=== PATIENT | female | born 1960 | race Hispanic/Latino ===

== ENCOUNTER 2018-01-25 19:02 | Emergency (ER) | payer SELFPAY ==
--- NOTE | 2018-01-25 20:26 | RAD REPORT ---
EXAM DESCRIPTION: [place] Single View01/25/2018 8:02 pm CLINICAL HISTORY: Chest pain COMPARISON: May 2017 FINDINGS: The lungs appear clear of acute infiltrate. The heart is normal size IMPRESSION: No acute abnormalities displayed
[2018-01-25 20:34] LABS: Absolute Lymphocytes (CBC) 1.2 K/uL (0.7-4.9); Absolute Monocytes 0.5 K/uL (0.1-1.3); Absolute Neutrophil 4.6 K/uL (1.8-8.0); Basophils % 0.6 % (0-1.3); Eosinophils % 2.3 % (0-4.4); Hematocrit 38.6 % (36.0-45.0); Lymphocytes % 18.8 % (15.3-44.8); MCH 31.9 pg (27.0-35.0); MCV 91.6 fL (80-100); MPV 7.2 fL (7.6-11.3); Monocytes % 7.4 % (3.3-12.3); RBC Red Blood Cell Count 4.21 M/uL (3.86-4.86)
[2018-01-25 20:42] LABS: Potassium 3.8 mEq/L (3.6-5.0)
[2018-01-25 20:48] LABS: Albumin 4.5 g/dL (3.2-5.5); Bilirubin Direct 0.1 mg/dL (0-0.2); Bilirubin Total 0.5 mg/dL (0.3-1.2); Protein, Total 8.1 g/dL (6.0-8.3)
[2018-01-25 20:52] LABS: CKMB Creatine Kinase MB 2.8 ng/ml (0.3-4.0)
[2018-01-25 20:54] LABS: Protime INR 1.01
[2018-01-25 22:26] LABS: Urine Blood TRACE (NEG); Urine Glucose NEGATIVE (NEG); Urine Protein NEGATIVE (NEG); Urine pH 6.5 (5.0-7.0)
--- NOTE | 2018-01-25 23:08 | EDPHYS ---
Physician Documentation [facility] Name: Carmel Rodriguez Age: 57 yrs Sex: Female : 1960 Arrival Date: 01/25/2018 Time: 19:04 Bed 19 Private MD: ED Physician Yunior Mcmahan HPI: 01/25 19:45 This 57 yrs old Female presents to ER via Wheelchair with complaints of Chest pkl Pain. 19:45 The patient or guardian reports chest pain that is located primarily in the substernal pkl area. Onset: just prior to arrival, 3 hour(s) ago. The pain radiates to back of neck. Associated signs and symptoms: Pertinent positives: anxiety and elevated blood pressure. The chest pain is described as a pressure. The patient has experienced similar episodes in the past, a few times. Historical: - Allergies: 19:11 ACETAMINOPHEN; ak1 19:11 CALCIUM CARBONATE; ak1 19:11 Excedrin PM; ak1 19:11 Ibuprofen; ak1 - Home Meds: 19:11 Aspirin Oral once daily [Active]; lisinopril Oral [Active]; Lovastatin Oral [Active]; ak1 Metoprolol Tartrate Oral [Active]; paroxetine HCl 20 mg Oral tab 1 tab once daily [Active]; Trazodone Oral [Active]; unknown anxiety medication [Active]; - PMHx: 19:11 Anxiety; Depression; Hypertension; ak1 - PSHx: 19:11 ; ak1 - Immunization history:: Adult Immunizations unknown. - Social history:: Smoking status: Patient/guardian denies using tobacco. ROS: 19:45 Eyes: Negative for injury, pain, redness, and discharge, ENT: Negative for injury, pkl pain, and discharge, Neck: Negative for injury, pain, and swelling. 19:45 Cardiovascular: Positive for chest pain. 19:45 Respiratory: Negative for cough, shortness of breath. 19:45 Abdomen/GI: Negative for abdominal pain, nausea, vomiting, and diarrhea. 19:45 Back: Negative for injury or acute deformity, acute changes. 19:45 : Negative for urinary symptoms. 19:45 MS/extremity: Negative for acute changes. 19:45 Skin: Negative for rash. 19:45 Neuro: Negative for altered mental status. Exam: 19:45 Head/Face: Normocephalic, atraumatic. Eyes: Pupils equal round and reactive to light, pkl extra-ocular motions intact. Lids and lashes normal. Conjunctiva and sclera are non-icteric and not injected. Cornea within normal limits. Periorbital areas with no swelling, redness, or edema. ENT: Nares patent. No nasal discharge, no septal abnormalities noted. Tympanic membranes are normal and external auditory canals are clear. Oropharynx with no redness, swelling, or masses, exudates, or evidence of obstruction, uvula midline. Mucous membranes moist. Neck: Trachea midline, no thyromegaly or masses palpated, and no cervical lymphadenopathy. Supple, full range of motion without nuchal rigidity, or vertebral point tenderness. No Meningismus. Chest/axilla: Normal chest wall appearance and motion. Nontender with no deformity. No lesions are appreciated. Cardiovascular: Regular rate and rhythm with a normal S1 and S2. No gallops, murmurs, or rubs. Normal PMI, no JVD. No pulse deficits. Respiratory: Lungs have equal breath sounds bilaterally, clear to auscultation and percussion. No rales, rhonchi or wheezes noted. No increased work of breathing, no retractions or nasal flaring. Abdomen/GI: Soft, non-tender, with normal bowel sounds. No distension or tympany. No guarding or rebound. No evidence of tenderness throughout. Back: No spinal tenderness. No costovertebral tenderness. Full range of motion. Skin: Warm, dry with normal turgor. Normal color with no rashes, no lesions, and no evidence of cellulitis. MS/ Extremity: Pulses equal, no cyanosis. Neurovascular intact. Full, normal range of motion. Neuro: Awake and alert, GCS 15, oriented to person, place, time, and situation. Cranial nerves II-XII grossly intact. Motor strength 5/5 in all extremities. Sensory grossly intact. Cerebellar exam normal. Normal gait. 19:45 Psych: Behavior/mood is cooperative, anxious, Patient has no thoughts/intents to harm self or others. Vital Signs: 19:11 BP 178 / 80; Pulse 72; Resp 20; Temp 98.1(TE); Pulse Ox 100% on R/A; Weight 136.08 kg ak1 (R); Height 5 ft. 5 in. (165.10 cm) (R); Pain 2/10; 20:18 BP 153 / 71; Pulse 64; Resp 18 S; Pulse Ox 97% on R/A; jd3 22:07 BP 161 / 73; Pulse 68; Resp 17 S; Pulse Ox 100% on R/A; jd3 22:51 BP 159 / 61; Pulse 66; Resp 19 S; Pulse Ox 100% on R/A; jd3 19:11 Body Mass Index 49.92 (136.08 kg, 165.10 cm) ak1 MDM: 19:37 Patient medically screened. pkl 23:06 Data reviewed: vital signs, nurses notes, lab test result(s), EKG, radiologic studies, pkl plain films. 01/25 19:45 Order name: Basic Metabolic Panel pkl 01/25 19:45 Order name: BNP pkl 01/25 19:45 Order name: CBC with Diff pkl 01/25 19:45 Order name: Ckmb pkl 01/25 19:45 Order name: CPK pkl 01/25 19:45 Order name: LFT's pkl 01/25 19:45 Order name: Magnesium pkl 01/25 19:45 Order name: PT-INR; Complete Time: 21:49 pkl 01/25 19:45 Order name: Ptt, Activated; Complete Time: 21:49 pkl 01/25 19:45 Order name: Troponin (emerg Dept Use Only); Complete Time: 21:49 pkl 01/25 19:45 Order name: D-Dimer; Complete Time: 21:49 pkl 01/25 19:45 Order name: Basic Metabolic Panel; Complete Time: 21:49 EDMS 01/25 19:45 Order name: BNP B-Type Natriuretic Peptide; Complete Time: 21:49 EDMS 01/25 19:45 Order name: CBC with Automated Diff; Complete Time: 20:45 EDMS 01/25 19:45 Order name: XRAY Chest (1 view); Complete Time: 20:42 pkl 01/25 19:45 Order name: EKG; Complete Time: 19:46 pkl 01/25 19:45 Order name: Cardiac monitoring; Complete Time: 19:49 pkl 01/25 19:45 Order name: EKG - Nurse/Tech; Complete Time: 19:49 pkl 01/25 19:45 Order name: IV Saline Lock; Complete Time: 20:15 [facility] 01/25 19:45 Order name: Labs collected and sent; Complete Time: 20:15 [facility] 01/25 19:45 Order name: O2 Per Protocol; Complete Time: 19:49 [facility] 01/25 19:45 Order name: O2 Sat Monitoring; Complete Time: 19:49 [facility] 01/25 19:45 Order name: Urine Dipstick-Ancillary (obtain specimen); Complete Time: 22:15 [facility] 01/25 19:45 Order name: CKMB Creatine Kinase MB; Complete Time: 21:49 [facility] 01/25 19:45 Order name: Creatine Phosphokinase; Complete Time: 21:49 [facility] 01/25 19:45 Order name: Liver (Hepatic) Function; Complete Time: 21:49 [facility] 01/25 19:45 Order name: Magnesium; Complete Time: 21:49 [facility] 01/25 21:51 Order name: Troponin (emerg Dept Use Only); Complete Time: 23:04 [facility] 01/25 22:16 Order name: Urine Dipstick--Ancillary (enter results); Complete Time: 23:04 em1 Administered Medications: No medications were administered Disposition: 01/25/18 23:07 Discharged to Home. Impression: Chest pain. Anxiety disorder. - Condition is Stable. - Prescriptions for Ativan 1 mg Oral Tablet - take 1 tablet by ORAL route 2 times per day As needed; 10 tablet. - Medication Reconciliation Form, Thank You Letter, Antibiotic Education, Prescription Opioid Use form. - Follow up: Private Physician; When: 2 - 3 days; Reason: Re-evaluation by your physician. - Problem is new. - Symptoms have improved. Signatures: [facility] Yunior Mcmahan MD MD l Kim Bowden RN RN ak1 Manjit Kim RN RN jd3 Corrections: (The following items were deleted from the chart) 23:07 23:07 01/25/2018 23:07 Discharged to Home. Impression: Chest pain. Anxiety disorder. pkl Condition is Stable. Forms are Medication Reconciliation Form, Thank You Letter, Antibiotic Education, Prescription Opioid Use. Follow up: Private Physician; When: 2 - 3 days; Reason: Re-evaluation by your physician. pkl 23:20 23:07 01/25/2018 23:07 Discharged to Home. Impression: Chest pain. Anxiety disorder. jd3 Condition is Stable. Forms are Medication Reconciliation Form, Thank You Letter, Antibiotic Education, Prescription Opioid Use. Follow up: Private Physician; When: 2 - 3 days; Reason: Re-evaluation by your physician. Problem is new. Symptoms have improved. pkl
--- NOTE | 2018-01-25 23:08 | ER ---
Nurse's Notes [facility] Name: Carmel Rodriguez Age: 57 yrs Sex: Female : 1960 Arrival Date: 01/25/2018 Time: 19:04 Bed 19 Private MD: Diagnosis: Chest pain. Anxiety disorder Presentation: 01/25 19:09 Presenting complaint: Patient states: SOB, Chest pain, high blood pressure and anxiety ak1 attack at home while working and cooking. pt stated bp at home was 202/93. Transition of care: patient was not received from another setting of care. Onset of symptoms was January 25, 2018. Initial Sepsis Screen: Does the patient meet any 2 criteria? No. Patient's initial sepsis screen is negative. Does the patient have a suspected source of infection? No. Patient's initial sepsis screen is negative. Care prior to arrival: None. 19:09 Method Of Arrival: Wheelchair ak1 19:09 Acuity: CHRISTINE 3 ak1 19:12 Note pt stated her mouth is dry so her sodium and potassium are low. ak1 Historical: - Allergies: 19:11 ACETAMINOPHEN; ak1 19:11 CALCIUM CARBONATE; ak1 19:11 Excedrin PM; ak1 19:11 Ibuprofen; ak1 - Home Meds: 19:11 Aspirin Oral once daily [Active]; lisinopril Oral [Active]; Lovastatin Oral [Active]; ak1 Metoprolol Tartrate Oral [Active]; paroxetine HCl 20 mg Oral tab 1 tab once daily [Active]; Trazodone Oral [Active]; unknown anxiety medication [Active]; - PMHx: 19:11 Anxiety; Depression; Hypertension; ak1 - PSHx: 19:11 ; ak1 - Immunization history:: Adult Immunizations unknown. - Social history:: Smoking status: Patient/guardian denies using tobacco. Screenin:12 Abuse screen: Denies threats or abuse. Denies injuries from another. Nutritional ak1 screening: No deficits noted. Tuberculosis screening: No symptoms or risk factors identified. Fall Risk None identified. Assessment: 19:30 General: Appears in no apparent distress. uncomfortable, Behavior is cooperative, jd3 appropriate for age, anxious. Pain: Complains of pain in back and chest Pain does not radiate. Pain began suddenly. Neuro: Level of Consciousness is awake, alert, obeys commands, Oriented to person, place, time, situation. Cardiovascular: Heart tones S1 S2 present Capillary refill < 3 seconds Patient's skin is warm and dry. Rhythm is regular. Respiratory: Airway is patent Respiratory effort is even, unlabored, Respiratory pattern is regular, symmetrical, Breath sounds are clear bilaterally. GI: Abdomen is round Bowel sounds present X 4 quads. Abd is soft and non tender X 4 quads. : No signs and/or symptoms were reported regarding the genitourinary system. EENT: No signs and/or symptoms were reported regarding the EENT system. Derm: Skin is intact, Skin is dry, Skin is normal, Skin temperature is warm. Musculoskeletal: Circulation, motion, and sensation intact. Range of motion: intact in all extremities. 20:18 Reassessment: Patient appears in no apparent distress at this time. Patient and/or jd3 family updated on plan of care and expected duration. Pain level reassessed. Patient is alert, oriented x 3, equal unlabored respirations, skin warm/dry/pink. 21:30 Reassessment: Patient appears in no apparent distress at this time. Patient and/or jd3 family updated on plan of care and expected duration. Pain level reassessed. Patient is alert, oriented x 3, equal unlabored respirations, skin warm/dry/pink. 22:51 Reassessment: Patient appears in no apparent distress at this time. Patient and/or jd3 family updated on plan of care and expected duration. Pain level reassessed. Patient is alert, oriented x 3, equal unlabored respirations, skin warm/dry/pink. 23:05 Reassessment: provider at bedside discussing plan of care. ea 23:19 Reassessment: Patient appears in no apparent distress at this time. Patient and/or jd3 family updated on plan of care and expected duration. Pain level reassessed. Patient is alert, oriented x 3, equal unlabored respirations, skin warm/dry/pink. pt reported understanding of discharge instructions, even and steady gait upon discharge. Vital Signs: 19:11 BP 178 / 80; Pulse 72; Resp 20; Temp 98.1(TE); Pulse Ox 100% on R/A; Weight 136.08 kg ak1 (R); Height 5 ft. 5 in. (165.10 cm) (R); Pain 2/10; 20:18 BP 153 / 71; Pulse 64; Resp 18 S; Pulse Ox 97% on R/A; jd3 22:07 BP 161 / 73; Pulse 68; Resp 17 S; Pulse Ox 100% on R/A; jd3 22:51 BP 159 / 61; Pulse 66; Resp 19 S; Pulse Ox 100% on R/A; jd3 19:11 Body Mass Index 49.92 (136.08 kg, 165.10 cm) ak1 ED Course: 19:04 Patient arrived in ED. sb2 19:10 Triage completed. ak1 19:11 Arm band placed on Patient placed in waiting room, Patient notified of wait time. ak1 19:12 Patient maintains SpO2 saturation greater than 95% on room air. ak1 19:30 Manjit Kim, RN is Primary Nurse. jd3 19:32 Patient has correct armband on for positive identification. Bed in low position. Call jd3 light in reach. Side rails up X 1. desk monitor on. Pulse ox on. NIBP on. 19:32 EKG done, by ED staff. jd3 19:37 Yunior Mcmahan MD is Attending Physician. pkl 19:59 X-ray completed. Portable x-ray completed in exam room. Patient tolerated procedure la2 well. 20:02 XRAY Chest (1 view) In Process Unspecified. EDMS 20:10 Inserted saline lock: 20 gauge in right antecubital area, using aseptic technique. jd3 Blood collected. 23:18 No provider procedures requiring assistance completed. IV discontinued, intact, jd3 bleeding controlled, No redness/swelling at site. Pressure dressing applied. Administered Medications: No medications were administered Outcome: 23:07 Discharge ordered by . pkdeepali 23:18 Discharged to home ambulatory, with family. jd3 23:18 Condition: stable 23:18 Discharge instructions given to patient, family, Instructed on discharge instructions, follow up and referral plans. medication usage, Demonstrated understanding of instructions, follow-up care, medications, Prescriptions given X 1. 23:20 Patient left the ED. jd3 Signatures: Dispatcher [employer] EDMS Yunior Mcmahan MD MD pkl Krenek, Amber RN RN ak1 Kavitha Frances RN Alfreda Reid ea la2 Manjit Kim RN RN jd3 Billeau, Aura sb2
[2018-01-25 23:24] VITALS: TEMP 98.1
[2018-01-25 23:26] VITALS: O2SAT 100
[2018-01-25 23:28] VITALS: BP 159/61
--- NOTE | 2018-01-26 10:14 | EKG ---
Test Date: 2018-01-25 Test Time: 19:20:03 Blueprint Clerk: LAM MEASUREMENT RESULTS: Intervals: Rate: 72 WV: 168 QRSD: 80 QT: 388 QTc: 424 [place]: P: 40 WV: 168 QRS: 14 T: 46 INTERPRETIVE STATEMENTS: Normal sinus rhythm Normal ECG Compared to ECG 05/24/2017 16:45:15 No significant changes Electronically Signed On 01-26-18 10:13:35 CDT by Jacinto Hurt
== END 2018-01-25 23:20 | disposition home or self-care (01) ==
LOC: ER 19:02
DX: F41.9 Anxiety disorder, unspecified (principal); I10 Essential (primary) hypertension; F32.9 Major depressive disorder, single episode, unspecified; Z88.6 Allergy status to analgesic agent; Z88.8 Allergy status to other drugs, medicaments and biological substances
CPT/HCPCS: 36415; 71045; 80048; 80076; 81003; 82550; 82553; 83735; 83880; 84484; 85025; 85379; 85610; 85730; 93005; 99285

== ENCOUNTER 2019-03-09 16:15 | Emergency (ER) | payer SELFPAY ==
--- OUTSIDE RECORDS SUMMARY | 2019-03-09 16:28 | XMS REPORT ---
:1960 [facility] Address [address] [place] [address] Dr. Ansari [address] [place] [id number] Care Team Providers Name Role Phone Unavailable Unavailable Unavailable Problems This patient has no known problems. Allergies, Adverse Reactions, Alerts This patient has no known allergies or adverse reactions. Medications This patient has no known medications.
[2019-03-09] MEDS ORDERED: ACETAMINOPHEN 500 MG TAB ONE (17:21)
[2019-03-09] MEDS ORDERED: METOPROLOL TAR 50 MG TAB ONE (17:23)
[2019-03-09 17:33] LABS: Urine Blood NEGATIVE (NEG); Urine Glucose NEGATIVE (NEG); Urine Protein NEGATIVE (NEG); Urine pH 6.5 (5.0-7.0)
[2019-03-09 17:57] LABS: Urine Bacteria NONE SEEN /HPF (<20); Urine Culture Reflex Order NOT NEEDED; Urine RBC <5 /HPF (NONE SEEN)
--- NOTE | 2019-03-09 18:56 | EDPHYS ---
Physician Documentation [facility] Name: Carmel Rodriguez Age: 58 yrs Sex: Female : 1960 Arrival Date: 03/09/2019 Time: 16:18 Bed 23 Private MD: ED Physician Suresh Silva HPI: 03/09 17:23 This 58 yrs old Female presents to ER via EMS with complaints of vaginal wa infection. 17:23 The patient presents with vaginal discharge, that is a moderate amount of white wa discharge, itchy. Onset: The symptoms/episode began/occurred 3 month(s) ago. Modifying factors: The symptoms are alleviated by nothing, the symptoms are aggravated by nothing. Associated signs and symptoms: Pertinent positives: urinary frequency, Pertinent negatives: dysuria, fever, hematuria, vomiting, . Severity of symptoms: At their worst the symptoms were moderate, in the emergency department the symptoms are unchanged. The patient has not experienced similar symptoms in the past. The patient has been recently seen by a physician: the patient's primary care provider. states had abx for UTI during a pap smear 3 mths ago. since then has had d/c for 3 months. several meds given by doctors but has not improved. describes as white and itchy. Historical: - Allergies: 16:29 ACETAMINOPHEN; ss 16:29 Aspirin; ss 16:29 CALCIUM CARBONATE; ss 16:29 EXCEDRIN; ss 16:29 Excedrin PM; ss 16:29 Ibuprofen; ss - PMHx: 16:29 Anxiety; Depression; Hypertension; ss - PSHx: 16:29 ; ss - Immunization history:: Adult Immunizations up to date. - Social history:: Smoking status: Patient/guardian denies using tobacco, Patient uses alcohol, occasionally. - Ebola Screening: : Patient denies exposure to infectious person Patient denies travel to an Ebola-affected area in the 21 days before illness onset. - Family history:: not pertinent. - Hospitalizations: : No recent hospitalization is reported. ROS: 17:27 Positive for urinary symptoms, vaginal discharge, vaginal itching, Negative for wa vaginal bleeding. 17:27 Constitutional: Negative for fever, chills, and weight loss, Eyes: Negative for injury, pain, redness, and discharge, ENT: Negative for injury, pain, and discharge, Neck: Negative for injury, pain, and swelling, Cardiovascular: Negative for chest pain, palpitations, and edema, Respiratory: Negative for shortness of breath, cough, wheezing, and pleuritic chest pain, Abdomen/GI: Negative for abdominal pain, nausea, vomiting, diarrhea, and constipation, Back: Negative for injury and pain, MS/Extremity: Negative for injury and deformity, Skin: Negative for injury, rash, and discoloration, Neuro: Negative for headache, weakness, numbness, tingling, and seizure. 17:27 All other systems are negative. Exam: 17:32 Constitutional: This is a well developed, well nourished patient who is awake, alert, wa and in no acute distress. Head/Face: Normocephalic, atraumatic. Eyes: Pupils equal round and reactive to light, extra-ocular motions intact. Lids and lashes normal. Conjunctiva and sclera are non-icteric and not injected. Cornea within normal limits. Periorbital areas with no swelling, redness, or edema. ENT: Nares patent. No nasal discharge, no septal abnormalities noted. Tympanic membranes are normal and external auditory canals are clear. Oropharynx with no redness, swelling, or masses, exudates, or evidence of obstruction, uvula midline. Mucous membranes moist. Neck: Trachea midline, no thyromegaly or masses palpated, and no cervical lymphadenopathy. Supple, full range of motion without nuchal rigidity, or vertebral point tenderness. No Meningismus. Chest/axilla: Normal chest wall appearance and motion. Nontender with no deformity. No lesions are appreciated. Cardiovascular: Regular rate and rhythm with a normal S1 and S2. No gallops, murmurs, or rubs. Normal PMI, no JVD. No pulse deficits. Respiratory: Lungs have equal breath sounds bilaterally, clear to auscultation and percussion. No rales, rhonchi or wheezes noted. No increased work of breathing, no retractions or nasal flaring. Abdomen/GI: Soft, non-tender, with normal bowel sounds. No distension or tympany. No guarding or rebound. No evidence of tenderness throughout. Back: No spinal tenderness. No costovertebral tenderness. Full range of motion. Skin: Warm, dry with normal turgor. Normal color with no rashes, no lesions, and no evidence of cellulitis. MS/ Extremity: Pulses equal, no cyanosis. Neurovascular intact. Full, normal range of motion. Neuro: Awake and alert, GCS 15, oriented to person, place, time, and situation. Cranial nerves II-XII grossly intact. Motor strength 5/5 in all extremities. Sensory grossly intact. Cerebellar exam normal. Normal gait. Psych: Awake, alert, with orientation to person, place and time. Behavior, mood, and affect are within normal limits. 17:32 : CVA tenderness, is absent, Pelvic Exam: External exam: noted acute changes consistent with yeast dermatitis, Speculum exam: os that is closed, discharge, white, scant, the nurse was present for the exam. Vital Signs: 15:58 BP 186 / 81 RA (auto/reg); Pulse 95; Resp 18; Temp 99.2; Pulse Ox 100% on R/A; Pain jp3 6/10; 16:30 BP 178 / 99; Pulse 94; Resp 16 S; Temp 98.7(O); Pulse Ox 100% on R/A; ca1 17:37 BP 145 / 79; Pulse 84; Resp 17 S; Pulse Ox 100% on R/A; ca1 18:29 BP 162 / 76; Pulse 76; Resp 16 S; Temp 99(O); Pulse Ox 97% on R/A; ca1 MDM: 16:21 Patient medically screened. ar 17:33 Differential diagnosis: pelvic inflammatory disease, urinary tract infection, vaginosis.ar 18:53 Data reviewed: vital signs, nurses notes, lab test result(s). Test interpretation: by ar ED physician or midlevel provider: labs consistent with theo vaginitis otherwise negative. ED course: po diflucan given. will d/c with topical cream as well based on clinical exam. 03/09 16:54 Order name: Wet Prep; Complete Time: 18:44 ar 03/09 16:54 Order name: GC (GONORR/CHLAMYDIA) Probe ar 03/09 16:55 Order name: Urine Microscopic Only; Complete Time: 18:16 ar 03/09 17:31 Order name: Urine Dipstick--Ancillary (enter results); Complete Time: 18:16 03/09 18:27 Order name: Glucose, Ancillary Testing; Complete Time: 18:44 EDPA 03/09 16:55 Order name: Urine Dipstick-Ancillary (obtain specimen); Complete Time: 17:38 ar 03/09 16:55 Order name: Pelvic Exam Setup; Complete Time: 17:04 ar Administered Medications: 17:00 Drug: Metoprolol 100 mg Route: PO; ca1 19:00 Follow up: Response: No adverse reaction; Pain is decreased ca1 17:00 Drug: Tylenol 1000 mg Route: PO; ca1 19:01 Follow up: Response: No adverse reaction; Pain is decreased ca1 18:55 Drug: DiFLUcan 150 mg Route: PO; ca1 19:01 Follow up: Response: Medication administered at discharge. ca1 Disposition: 03/09/19 18:56 Discharged to Home. Impression: Theo Vaginitis. - Condition is Stable. - Discharge Instructions: Vaginitis, [id number]. - Prescriptions for Clotrimazole 3 Day 2 % Vaginal Cream - insert 1 applicatorful by VAGINAL route At bedtime for 3 days; 3 Syringe. Diflucan 150 mg Oral Tablet - take 1 tablet by ORAL route one time for 1 day take 3 days from now; 1 tablet. - Medication Reconciliation Form, Thank You Letter, Antibiotic Education, Prescription Opioid Use form. - Follow up: Private Physician; When: 2 - 3 days; Reason: Recheck today's complaints. - Problem is new. - Symptoms have improved. - Notes: follow up with your doctor for further evaluation. do not take antibiotics as it can make theo worse. take medication as I have prescribed for you Signatures: Dispatcher [employer] [facility] Kaia Jett RN RN Suresh Silva MD MD ar Leonie Rodriguez RN RN ca1 Corrections: (The following items were deleted from the chart) 19:27 18:56 03/09/2019 18:56 Discharged to Home. Impression: Theo Vaginitis. Condition is ca1 Stable. Forms are Medication Reconciliation Form, Thank You Letter, Antibiotic Education, Prescription Opioid Use. Follow up: Private Physician; When: 2 - 3 days; Reason: Recheck today's complaints. Problem is new. Symptoms have improved. ar
--- NOTE | 2019-03-09 18:56 | ER ---
Nurse's Notes [facility] Name: Carmel Rodriguez Age: 58 yrs Sex: Female : 1960 Arrival Date: 03/09/2019 Time: 16:18 Bed 23 Private MD: Diagnosis: Lesvia Vaginitis Presentation: 03/09 16:19 Presenting complaint: Patient states: vaginal infection x 3 months that is reportedly ss itching and burning. Denies fever. Transition of care: patient was not received from another setting of care. Onset of symptoms is unknown. Risk Assessment: Do you want to hurt yourself or someone else? Patient reports no desire to harm self or others. Initial Sepsis Screen: Does the patient meet any 2 criteria? No. Patient's initial sepsis screen is negative. Does the patient have a suspected source of infection? No. Patient's initial sepsis screen is negative. Care prior to arrival: Medication(s) given: Benadryl 50 mg IVP. EMS reports that they gave medication because of rash to R forearm. IV initiated. 20 GA, in the left antecubital area, Pt has been reportedly taking unknown medications from [place] for her vaginal infection, reports that medications have not worked for the past three months. 16:19 Method Of Arrival: EMS: [facility] ss 16:19 Acuity: CHRISTINE 3 ss Historical: - Allergies: 16:29 ACETAMINOPHEN; ss 16:29 Aspirin; ss 16:29 CALCIUM CARBONATE; ss 16:29 EXCEDRIN; ss 16:29 Excedrin PM; ss 16:29 Ibuprofen; ss - PMHx: 16:29 Anxiety; Depression; Hypertension; ss - PSHx: 16:29 ; ss - Immunization history:: Adult Immunizations up to date. - Social history:: Smoking status: Patient/guardian denies using tobacco, Patient uses alcohol, occasionally. - Ebola Screening: : Patient denies exposure to infectious person Patient denies travel to an Ebola-affected area in the 21 days before illness onset. - Family history:: not pertinent. - Hospitalizations: : No recent hospitalization is reported. Screenin:30 Abuse screen: Denies threats or abuse. Denies injuries from another. Nutritional ca1 screening: No deficits noted. Tuberculosis screening: No symptoms or risk factors identified. Fall Risk None identified. Assessment: 16:30 General: Appears in no apparent distress. comfortable, Behavior is calm, cooperative, ca1 appropriate for age. Pain: Complains of pain in groin and suprapubic area Pain does not radiate. Pain currently is 7 out of 10 on a pain scale. Pain began 3 months ago. Neuro: Level of Consciousness is awake, alert, obeys commands, Oriented to person, place, time, situation. Cardiovascular: Heart tones S1 S2 present Capillary refill < 3 seconds Patient's skin is warm and dry. Respiratory: Airway is patent Respiratory effort is even, unlabored, Respiratory pattern is regular, symmetrical, Breath sounds are clear bilaterally. GI: Abdomen is round non-distended, Bowel sounds present X 4 quads. Abd is soft X 4 quads Abdomen is tender to palpation in right lower quadrant and left lower quadrant. : Reports burning with urination, vaginal itching. EENT: No deficits noted. No signs and/or symptoms were reported regarding the EENT system. Derm: Skin is intact, is healthy with good turgor, Skin is pink, warm \T\ dry. Musculoskeletal: Circulation, motion, and sensation intact. Capillary refill < 3 seconds, Range of motion: intact in all extremities. 17:28 Reassessment: Patient appears in no apparent distress at this time. Patient and/or ca1 family updated on plan of care and expected duration. Pain level reassessed. Patient is alert, oriented x 3, equal unlabored respirations, skin warm/dry/pink. 18:35 Reassessment: Patient appears in no apparent distress at this time. Patient and/or ca1 family updated on plan of care and expected duration. Pain level reassessed. Patient is alert, oriented x 3, equal unlabored respirations, skin warm/dry/pink. Vital Signs: 15:58 BP 186 / 81 RA (auto/reg); Pulse 95; Resp 18; Temp 99.2; Pulse Ox 100% on R/A; Pain jp3 6/10; 16:30 BP 178 / 99; Pulse 94; Resp 16 S; Temp 98.7(O); Pulse Ox 100% on R/A; ca1 17:37 BP 145 / 79; Pulse 84; Resp 17 S; Pulse Ox 100% on R/A; ca1 18:29 BP 162 / 76; Pulse 76; Resp 16 S; Temp 99(O); Pulse Ox 97% on R/A; ca1 ED Course: 16:05 Bed in low position. Call light in reach. Side rails up X 1. Side rails up X2. Warm jp3 blanket given. Verbal reassurance given. 16:05 Pulse ox on. NIBP on. jp3 16:05 Maintain EMS IV. Dressing intact. Good blood return noted. Site clean \T\ dry. Gauge \T\ kelsey 3 site: 20 gauge in Left A/C. 16:10 Initial lab(s) drawn, by me, held in ED. First set of blood cultures drawn Held. jp3 16:18 Patient arrived in ED. 16:21 Suresh Silva MD is Attending Physician. wy 16:28 Triage completed. 16:29 Arm band placed on right wrist. 16:38 Leonie Rodriguez, RN is Primary Nurse. ca1 17:36 Assist provider with pelvic exam: Set up pelvic tray. Performed by Suresh Silva MD ca1 Specimens sent to lab. Patient tolerated well. 19:04 Patient did not have IV access during this emergency room visit. ca1 Administered Medications: 17:00 Drug: Metoprolol 100 mg Route: PO; ca1 19:00 Follow up: Response: No adverse reaction; Pain is decreased ca1 17:00 Drug: Tylenol 1000 mg Route: PO; ca1 19:01 Follow up: Response: No adverse reaction; Pain is decreased ca1 18:55 Drug: DiFLUcan 150 mg Route: PO; ca1 19:01 Follow up: Response: Medication administered at discharge. ca1 Outcome: 18:56 Discharge ordered by . wy 19:16 Discharged to home via wheelchair. ca1 19:16 Condition: stable 19:16 Discharge instructions given to patient, with Marisol boilermaker mechanic to translate instructions to Micronesian Instructed on discharge instructions, follow up and referral plans. medication usage, Demonstrated understanding of instructions, follow-up care, medications, Prescriptions given X 2. 19:27 Patient left the ED. ca1 Signatures: Kaia Jett RN RN Suresh Silva MD MD wy El Ramesh 3 Leonie Rodriguez, RN RN ca1 Corrections: (The following items were deleted from the chart) 17:37 16:30 No provider procedures requiring assistance completed. ca1 ca1
[2019-03-09] MEDS ORDERED: FLUCONAZOLE 100 MG TAB ONE (19:12)
[2019-03-09 19:59] VITALS: BP 162/76; TEMP 99; O2SAT 97
== END 2019-03-09 19:27 | disposition home or self-care (01) ==
LOC: ER 16:15
DX: B37.3 Candidiasis of vulva and vagina (principal); F41.9 Anxiety disorder, unspecified; F32.9 Major depressive disorder, single episode, unspecified; I10 Essential (primary) hypertension; Z88.6 Allergy status to analgesic agent
CPT/HCPCS: 81003; 81015; 82962; 87210; 87490; 87590; 99284

== ENCOUNTER 2019-04-19 11:36 | Emergency (ER) | payer SELFPAY ==
--- OUTSIDE RECORDS SUMMARY | 2019-04-19 11:38 | XMS REPORT ---
:1960 [facility] Address [address] [place] [address] Dr. Ansari [address] [place] [id number] Care Team Providers Name Role Phone Unavailable Unavailable Unavailable Problems This patient has no known problems. Allergies, Adverse Reactions, Alerts This patient has no known allergies or adverse reactions. Medications This patient has no known medications.
[2019-04-19] MEDS ORDERED: ASPIRIN 81 MG CHEWABLE TABLET ONE (12:03)
[2019-04-19] MEDS ORDERED: NITROGLYCERIN 0.4 MG/TAB SL ONE (12:03)
[2019-04-19 12:20] LABS: Absolute Lymphocytes (CBC) 1.3 K/uL (0.7-4.9); Basophils % 0.7 % (0-1.3); Hematocrit 40.4 % (36.0-45.0); Lymphocytes % 22.6 % (15.3-44.8); MPV 6.9 fL (7.6-11.3); RBC Red Blood Cell Count 4.24 M/uL (3.86-4.86)
[2019-04-19 12:21] LABS: Protime INR 0.97
[2019-04-19 12:37] LABS: ALT/SGPT 21 U/L (12-78); AST/SGOT 14 U/L (15-37); Albumin 3.7 g/dL (3.4-5.0); Alkaline Phosphatase 108 U/L (45-117); BUN Blood Urea Nitrogen 7 mg/dL (7-18); Bicarbonate 25 mmol/L (21-32); Bilirubin Direct < 0.1 mg/dL (0-0.2); Bilirubin Total 0.3 mg/dL (0.2-1.0); Glucose Level 104 mg/dL (74-106); Lipase 89 U/L (73-393); Magnesium 2.1 mg/dL (1.8-2.4); NT PRO-BNP 180 pg/mL (<125); Potassium 3.9 mmol/L (3.5-5.1); Protein, Total 7.8 g/dL (6.4-8.2); Sodium Level 133 mmol/L (136-145); Troponin (Emerg Dept Use Only) < 0.02 ng/mL (0.0-0.045)
--- NOTE | 2019-04-19 13:00 | RAD REPORT ---
EXAM DESCRIPTION: RAD - Chest Single View - 04/19/2019 12:02 pm CLINICAL HISTORY: Chest pain and pressure COMPARISON: January 2018 TECHNIQUE: AP portable chest image was obtained 1158 hours . FINDINGS: Lungs are clear. Heart and vasculature are normal. No measurable pleural effusion and no p neumothorax. No acute bony abnormality seen. No acute aortic findings suspected. IMPRESSION: No acute cardiopulmonary process. No significant interval change.
[2019-04-19 13:53] LABS: Urine Blood TRACE (NEG); Urine Glucose NEGATIVE (NEG); Urine Protein NEGATIVE (NEG)
--- NOTE | 2019-04-19 16:15 | EDPHYS ---
Physician Documentation [facility] Name: Carmel Rodriguez Age: 58 yrs Sex: Female : 1960 Arrival Date: 04/19/2019 Time: 11:39 Bed 19 Private MD: ED Physician Jose Angel Brown HPI: 04/19 11:45 This 58 yrs old Female presents to ER via EMS with complaints of Anxiety. cp 11:45 The patient has shortness of breath at rest. cp 11:45 Onset: The symptoms/episode began/occurred suddenly, this morning, 2 hour(s) ago. cp 11:45 Duration: The symptoms are continuous, and are unchanged since they started. Associated cp signs and symptoms: Pertinent positives: chest pain, Pertinent negatives: diaphoresis, dizziness, fever, nausea, vomiting. Severity of symptoms: in the emergency department the symptoms are unchanged despite EMS interventions. Historical: - Allergies: 11:47 ACETAMINOPHEN; em 11:47 CALCIUM CARBONATE; em 11:47 EXCEDRIN; em 11:47 Excedrin PM; em 11:47 Ibuprofen; em - Home Meds: 11:47 lisinopril 20 mg Oral tab 1 tab twice a day [Active]; metoprolol tartrate 50 mg Oral em tab 1 tab 2 times per day [Active]; Buspirone Oral [Active]; Hydralazine Oral [Active]; - PMHx: 11:47 Anxiety; Depression; Hypertension; em - PSHx: 11:47 ; em - Immunization history:: Adult Immunizations up to date. - Social history:: Smoking status: Patient/guardian denies using tobacco. - Ebola Screening: : Patient negative for fever greater than or equal to 101.5 degrees Fahrenheit, and additional compatible Ebola Virus Disease symptoms Patient denies exposure to infectious person Patient denies travel to an Ebola-affected area in the 21 days before illness onset No symptoms or risks identified at this time. ROS: 11:50 Constitutional: Negative for body aches, chills, fever, poor PO intake. cp 11:50 Eyes: Negative for injury, pain, redness, and discharge. cp 11:50 ENT: Negative for drainage from ear(s), ear pain, sore throat, difficulty swallowing, difficulty handling secretions. 11:50 Cardiovascular: Positive for chest pain, Negative for edema, palpitations. 11:50 Respiratory: Positive for shortness of breath, at rest. Negative for cough, wheezing. 11:50 Abdomen/GI: Negative for abdominal pain, vomiting, diarrhea, constipation, black/tarry stool, rectal bleeding. 11:50 Back: Negative for radiated pain. 11:50 : Negative for urinary symptoms. 11:50 Skin: Negative for cellulitis, rash. 11:50 Neuro: Negative for altered mental status, dizziness, headache, syncope, weakness. 11:50 All other systems are negative. Exam: 12:00 ECG was reviewed by the Attending Physician. cp 12:00 Constitutional: The patient appears in no acute distress, alert, awake, cp non-diaphoretic, non-toxic, well developed, well nourished, obese, uncomfortable. 12:00 Head/Face: Normocephalic, atraumatic. cp 12:00 Eyes: Periorbital structures: appear normal, Pupils: equal, round, and reactive to light and accomodation, Extraocular movements: intact throughout, Conjunctiva: normal, no exudate, no injection, Lids and lashes: appear normal, bilaterally. 12:00 ENT: External ear(s): are unremarkable, Nose: is normal, Mouth: is normal, Posterior pharynx: is normal, airway is patent, no erythema, no exudate. 12:00 Neck: ROM/movement: is normal, is supple, without pain, no range of motions limitations, no meningismus, no nuchal rigidity. 12:00 Chest/axilla: Inspection: normal, Palpation: is normal, no crepitus, no tenderness. 12:00 Cardiovascular: Rate: normal, Rhythm: regular, Heart sounds: murmur, not appreciated, rub, not appreciated, gallop, not appreciated, Edema: is not appreciated, JVD: is not appreciated. 12:00 Respiratory: the patient does not display signs of respiratory distress, Respirations: normal, no use of accessory muscles, no retractions, no splinting, no tachypnea, labored breathing, is not present, Breath sounds: are clear throughout, no decreased breath sounds, no stridor, no wheezing. 12:00 Abdomen/GI: Inspection: abdomen appears normal, Bowel sounds: active, all quadrants, Palpation: abdomen is soft and non-tender, in all quadrants. 12:00 Back: pain, is absent, ROM is normal. 12:00 Skin: cellulitis, is not appreciated, no rash present. 12:00 Neuro: Orientation: to person, place \T\ time. Mentation: is normal, Cerebellar function: is grossly normal, Motor: moves all fours, strength is normal, Sensation: is normal. 15:43 ECG was reviewed by the Attending Physician. cp Vital Signs: 11:47 BP 188 / 103; Pulse 74; Resp 24; Temp 98.5; Pulse Ox 97% on R/A; Weight 113.4 kg; em Height 5 ft. 5 in. (165.10 cm); Pain 0/10; 11:57 BP 177 / 76; ss 12:26 BP 170 / 59; Pulse 69; Resp 18; Pulse Ox 98% on R/A; Pain 0/10; em 13:27 BP 156 / 59; Pulse 68; Resp 16; Pulse Ox 99% on R/A; Pain 0/10; em 14:53 BP 147 / 71; Pulse 71; Resp 18; Pulse Ox 98% on R/A; em 15:50 BP 121 / 83; Pulse 62; Resp 18; Pulse Ox 99% on R/A; Pain 0/10; em 11:47 Body Mass Index 41.60 (113.40 kg, 165.10 cm) em MDM: 11:42 Patient medically screened. dominick 12:00 Differential diagnosis: Anemia asthma, Bronchitis pneumonia, pulmonary edema, Pulmonary cp Embolism Unstable Angina. 16:16 Data reviewed: vital signs, nurses notes, lab test result(s), EKG, radiologic studies, cp plain films. 16:16 Test interpretation: by ED physician or midlevel provider: ECG, plain radiologic cp studies. Counseling: I had a detailed discussion with the patient and/or guardian regarding: the historical points, exam findings, and any diagnostic results supporting the discharge/admit diagnosis, lab results, radiology results, the need for outpatient follow up, a family practitioner, to return to the emergency department if symptoms worsen or persist or if there are any questions or concerns that arise at home. Response to treatment: the patient's symptoms have markedly improved after treatment. Special discussion: Based on the patient's history, exam, and Dx evaluation, there is no indication for emergent intervention or inpatient Tx. It is understood by the patient/guardian that if the Sx's persist or worsen they need to return immediately for re-evaluation. 16:16 ED course: VSS. Symptoms improved. Initial and repeat EKGs and troponin normal. Will cp discharge to home for continued monitoring. 04/19 11:43 Order name: Basic Metabolic Panel; Complete Time: 13:07 04/19 13:06 Interpretation: Normal except: NA 133; GFR 78. 04/19 11:43 Order name: CBC with Diff; Complete Time: 13: 04/19 13:06 Interpretation: Normal except: MCV 95.3; MPV 6.9. 04/19 11:43 Order name: LFT's; Complete Time: 13: 04/19 11:43 Order name: Magnesium; Complete Time: 13: 04/19 11:43 Order name: NT PRO-BNP; Complete Time: 13: 04/19 11:43 Order name: PT-INR; Complete Time: 13: 04/19 11:43 Order name: Troponin (emerg Dept Use Only); Complete Time: 13: 04/19 13:06 Interpretation: Reviewed. 04/19 11:43 Order name: XRAY Chest (1 view); Complete Time: 13: 04/19 11:43 Order name: Lipase; Complete Time: 13: 04/19 13:49 Order name: Urine Dipstick--Ancillary (enter results) 04/19 13:51 Order name: Urine Dipstick-Ancillary; Complete Time: 13:58 EDMS 04/19 15:20 Order name: Troponin I 04/19 11:43 Order name: EKG; Complete Time: 11:44 04/19 11:43 Order name: Cardiac monitoring; Complete Time: 12:23 04/19 11:43 Order name: EKG - Nurse/Tech; Complete Time: 12:23 04/19 11:43 Order name: IV Saline Lock; Complete Time: 12:08 04/19 11:43 Order name: Labs collected and sent; Complete Time: 12:08 04/19 11:43 Order name: O2 Per Protocol; Complete Time: 12:23 04/19 11:43 Order name: O2 Sat Monitoring; Complete Time: 12:23 04/19 11:43 Order name: Urine Dipstick-Ancillary (obtain specimen); Complete Time: 13:55 cp 04/19 11:43 Order name: Urine Test (obtain specimen); Complete Time: 13:55 cp 04/19 15:20 Order name: EKG; Complete Time: 15:23 cp 04/19 15:20 Order name: EKG - Nurse/Tech; Complete Time: 16:20 cp EC:00 Rate is 69 beats/min. Rhythm is regular. NJ interval is normal. QRS interval is normal. cp QT interval is normal. Interpreted by me. Reviewed by me. 15:43 Rate is 69 beats/min. Rhythm is regular. NJ interval is normal. QRS interval is normal. cp QT interval is normal. Interpreted by me. Reviewed by me. Administered Medications: 11:57 Not Given (Hemodynamic Parameters; cancelled per FRANCINE Downs): Nitroglycerin 0.4 mg ss Sublingual once 12:22 Drug: Aspirin Chewable Tablet 324 mg Route: PO; em 13:53 Follow up: Response: No adverse reaction em Disposition: 04/20 07:19 Co-signature as Attending Physician, Jose Angel Brown MD I agree with the assessment and dominick plan of care. Disposition: 04/19/19 16:13 Discharged to Home. Impression: Chest pain, unspecified. - Condition is Stable. - Discharge Instructions: Nonspecific Chest Pain, Aspirin and Your Heart. - Medication Reconciliation Form, Thank You Letter, Antibiotic Education, Prescription Opioid Use form. - Follow up: Private Physician; When: 1 - 2 days; Reason: Recheck today's complaints. - Problem is new. - Symptoms have improved. Signatures: Dispatcher [employer] Jose Angel Alves MD MD cha Munoz, Edgar, SOLUTIONS DEVELOPMENT ANALYST SOLUTIONS DEVELOPMENT ANALYST em Jose Angel Russell PA PA cp Smirch, Shelby RN ss Corrections: (The following items were deleted from the chart) 04/19 13:28 11:47 Allergies: Aspirin; em em 16:49 16:13 04/19/2019 16:13 Discharged to Home. Impression: Chest pain, unspecified. em Condition is Stable. Forms are Medication Reconciliation Form, Thank You Letter, Antibiotic Education, Prescription Opioid Use. Follow up: Private Physician; When: 1 - 2 days; Reason: Recheck today's complaints. Problem is new. Symptoms have improved. cp
--- NOTE | 2019-04-19 16:15 | ER ---
Nurse's Notes [facility] Name: Carmel Rodriguez Age: 58 yrs Sex: Female : 1960 Arrival Date: 04/19/2019 Time: 11:39 Bed 19 Private MD: Diagnosis: Chest pain, unspecified Presentation: 04/19 11:44 Presenting complaint: EMS states: was sleeping and was woken up by anxiety attack about em 2 hours ago, reports chest pressure and pressure around neck like someone is choking her, denies N/V, BP 190/90, HR 68, 97% SPO2 RA. Transition of care: patient was not received from another setting of care. Onset of symptoms. Risk Assessment: Do you want to hurt yourself or someone else? Patient reports no desire to harm self or others. Initial Sepsis Screen: Does the patient meet any 2 criteria? No. Patient's initial sepsis screen is negative. Does the patient have a suspected source of infection? No. Patient's initial sepsis screen is negative. Care prior to arrival: None. 11:44 Method Of Arrival: EMS: [facility] em 11:44 Acuity: CHRISTINE 3 ss Historical: - Allergies: 11:47 ACETAMINOPHEN; em 11:47 CALCIUM CARBONATE; em 11:47 EXCEDRIN; em 11:47 Excedrin PM; em 11:47 Ibuprofen; em - Home Meds: 11:47 lisinopril 20 mg Oral tab 1 tab twice a day [Active]; metoprolol tartrate 50 mg Oral em tab 1 tab 2 times per day [Active]; Buspirone Oral [Active]; Hydralazine Oral [Active]; - PMHx: 11:47 Anxiety; Depression; Hypertension; em - PSHx: 11:47 ; em - Immunization history:: Adult Immunizations up to date. - Social history:: Smoking status: Patient/guardian denies using tobacco. - Ebola Screening: : Patient negative for fever greater than or equal to 101.5 degrees Fahrenheit, and additional compatible Ebola Virus Disease symptoms Patient denies exposure to infectious person Patient denies travel to an Ebola-affected area in the 21 days before illness onset No symptoms or risks identified at this time. Screenin:47 Abuse screen: Denies threats or abuse. Nutritional screening: No deficits noted. em Tuberculosis screening: No symptoms or risk factors identified. Fall Risk None identified. Assessment: 11:47 General: Appears in no apparent distress. comfortable, Behavior is cooperative, em anxious. Pain: Denies pain. Neuro: Level of Consciousness is awake, alert, obeys commands, Oriented to person, place, time, situation, Speech is normal. Cardiovascular: Reports shortness of breath, since chest pressure Denies chest pain, nausea, vomiting, Heart tones S1 S2 present Capillary refill < 3 seconds Patient's skin is warm and dry. Rhythm is sinus rhythm. GI: Abdomen is round non-distended, Patient currently denies nausea, vomiting. Derm: Skin is intact, is healthy with good turgor, Skin is pink, warm \T\ dry. Musculoskeletal: Range of motion: intact in all extremities. 11:57 Reassessment: Patient denies pain, shortness of breath and reports she is feeling much ss better. Nitro cancelled per FRANCINE Sanderson. Respiratory: Airway is patent Respiratory effort is even, unlabored. 12:12 Reassessment: reports allergy to ASA is not a true allergy, reports does not like to em take medication so calls it an allergy, reports she has taken ASA in the past with no problems, provider notified, pt agrees to take medication. 13:27 Reassessment: Patient appears in no apparent distress at this time. Patient and/or em family updated on plan of care and expected duration. Pain level reassessed. Patient is alert, oriented x 3, equal unlabored respirations, skin warm/dry/pink. Patient states feeling better. Patient states symptoms have improved. 14:30 Reassessment: Patient appears in no apparent distress at this time. Patient and/or em family updated on plan of care and expected duration. Pain level reassessed. Patient is alert, oriented x 3, equal unlabored respirations, skin warm/dry/pink. 16:11 Reassessment: Patient appears in no apparent distress at this time. Patient and/or em family updated on plan of care and expected duration. Pain level reassessed. Patient is alert, oriented x 3, equal unlabored respirations, skin warm/dry/pink. Vital Signs: 11:47 BP 188 / 103; Pulse 74; Resp 24; Temp 98.5; Pulse Ox 97% on R/A; Weight 113.4 kg; em Height 5 ft. 5 in. (165.10 cm); Pain 0/10; 11:57 BP 177 / 76; ss 12:26 BP 170 / 59; Pulse 69; Resp 18; Pulse Ox 98% on R/A; Pain 0/10; em 13:27 BP 156 / 59; Pulse 68; Resp 16; Pulse Ox 99% on R/A; Pain 0/10; em 14:53 BP 147 / 71; Pulse 71; Resp 18; Pulse Ox 98% on R/A; em 15:50 BP 121 / 83; Pulse 62; Resp 18; Pulse Ox 99% on R/A; Pain 0/10; em 11:47 Body Mass Index 41.60 (113.40 kg, 165.10 cm) em ED Course: 11:39 Patient arrived in ED. ss 11:42 Jose Angel Brown MD is Attending Physician. dominick 11:42 Jose Angel Russell PA is PHCP. cp 11:44 Bob Chaudhry LVN is Primary Nurse. em 11:47 Arm band placed on. em 11:47 Patient has correct armband on for positive identification. Placed in gown. Bed in low em position. Call light in reach. Side rails up X2. library monitor on. Pulse ox on. NIBP on. 12:08 Initial lab(s) drawn, by me, sent to lab. Inserted saline lock: 20 gauge in right em1 antecubital area, using aseptic technique. Blood collected. 12:11 XRAY Chest (1 view) In Process Unspecified. EDNH 12:28 Triage completed. ss 16:47 No provider procedures requiring assistance completed. IV discontinued, intact, em bleeding controlled, No redness/swelling at site. Pressure dressing applied. Administered Medications: 11:57 Not Given (Hemodynamic Parameters; cancelled per FRANCINE Sanderson): Nitroglycerin 0.4 mg ss Sublingual once 12:22 Drug: Aspirin Chewable Tablet 324 mg Route: PO; em 13:53 Follow up: Response: No adverse reaction em Outcome: 16:13 Discharge ordered by . cp 16:48 Discharged to home ambulatory, with family. em 16:48 Condition: good 16:48 Discharge instructions given to patient, family, Instructed on discharge instructions, follow up and referral plans. Demonstrated understanding of instructions, follow-up care. 16:49 Patient left the ED. em Signatures: Dispatcher [employer] EDNH Gordon Browny, MD MD dominick Chaudhry, Bob, UNIT LEADER UNIT LEADER em Ki Suh em1 Kaia Jett RN RN ss Jose Angel Russell PA PA cp Corrections: (The following items were deleted from the chart) 13:28 11:47 Allergies: Aspirin; em em
[2019-04-19 17:24] VITALS: TEMP 98.5
[2019-04-19 17:31] VITALS: BP 121/83; O2SAT 99
--- NOTE | 2019-04-19 21:14 | EKG ---
Test Date: 2019-04-19 Test Time: 11:50:48 Mandarin Speaking Nanny: JUAN ALBERTO MEASUREMENT RESULTS: Intervals: Rate: 69 ND: 158 QRSD: 76 QT: 386 QTc: 413 [place]: P: 17 ND: 158 QRS: 25 T: 47 INTERPRETIVE STATEMENTS: Normal sinus rhythm Normal ECG Compared to ECG 01/25/2018 19:20:03 No significant changes Electronically Signed On 04-19-19 21:13:21 CDT by Jacinto Hurt
--- NOTE | 2019-04-20 07:40 | EKG ---
Test Date: 2019-04-19 Test Time: 15:34:45 Peanut Sheller: ALLIE MEASUREMENT RESULTS: Intervals: Rate: 69 NE: 166 QRSD: 76 QT: 404 QTc: 432 [place]: P: 12 NE: 166 QRS: 28 T: 12 INTERPRETIVE STATEMENTS: Normal sinus rhythm Normal ECG Compared to ECG 04/19/2019 11:50:48 No significant changes Electronically Signed On 04-20-19 07:39:30 CDT by Jacinto Hurt
== END 2019-04-19 16:49 | disposition home or self-care (01) ==
LOC: ER 11:36
DX: R07.9 Chest pain, unspecified (principal); I10 Essential (primary) hypertension; F32.9 Major depressive disorder, single episode, unspecified; F41.9 Anxiety disorder, unspecified; Z88.6 Allergy status to analgesic agent; Z88.8 Allergy status to other drugs, medicaments and biological substances
CPT/HCPCS: 36415; 71045; 80048; 80076; 81003; 83690; 83735; 83880; 84484; 85025; 85610; 93005; 99284

== ENCOUNTER 2019-09-29 21:08 | Emergency (ER) | payer SELFPAY ==
--- OUTSIDE RECORDS SUMMARY | 2019-09-29 21:10 | XMS REPORT | Summary of Care ---
:1960 Author Organization [facility] Address [address] [place] [address] Care Team Providers Name Role Phone Devika Malave [facility] Primary Care Provider Reason for Visit Reason Comments VAGINAL ITCHING Encounter Details Date Type Department Care Team Description 05/13/2019 Office Visit [facility]- Devika Malave, Vaginal yeast infection (Primary Dx); [facility] Vaginal itching; [address] [place] [address] Urinary urgency [place] [address] [place], [place] [address] Allergies Active Allergy Reactions Severity Noted Date Comments Qsgjsgh-Filxruzormubs-Yxmnbj Swelling 04/28/2007 ne Hydrochlorothiazide Unknown - See 12/25/2009 Severe hyponatremia comments Ibuprofen Swelling 04/28/2007 documented as of this encounter (statuses as of 05/13/2019) Medications Medication Sig Dispensed Refills Start Date End Date Status PAROXETINE HCL 20 MG 1 daily 0 Active ORAL TAB metoprolol tartrate Take 50 mg by 0 Active (LOPRESSOR) 50 mg mouth 2 (two) tablet times daily. hydrOXYzine (ATARAX) 25 Take 25 mg by 0 Active mg tablet mouth every 6 (six) hours. cloniDINE 0.1 mg tablet Take 1 tablet by 15 tablet 0 11/14/2017 Active mouth at bedtime as needed (SBP>180 or DBP>120). hydralAZINE 50 mg Take 50 mg by 0 Active tablet mouth 2 (two) times daily. mirtazapine 30 mg Take 30 mg by 0 Active tablet mouth at bedtime. busPIRone 10 mg tablet Take 10 mg by 0 Active mouth 2 (two) times daily. Miscellaneous Medical QHS X 7days 0 05/13/2019 Active Supply MiscIndications: Vaginal yeast infection documented as of this encounter (statuses as of 05/13/2019) Active Problems Problem Noted Date Vaginal yeast infection 05/13/2019 Vaginal itching 05/13/2019 Urinary urgency 05/13/2019 Screen for STD (sexually transmitted disease) 01/14/2019 Vaginal discomfort 01/14/2019 Well woman exam 12/04/2018 Contraceptive management 12/04/2018 Menopause 03/17/2015 Morbid obesity 03/17/2015 Essential hypertension, benign 03/17/2015 Generalized anxiety disorder 03/17/2015 Depression 03/17/2015 documented as of this encounter (statuses as of 05/13/2019) Social History Tobacco Use Types Packs/Day Years Used Date Never Smoker Smokeless Tobacco: Never Used Alcohol Use Drinks/Week oz/Week Comments Yes occasionally Sex Assigned at Date Recorded Not on file Job Start Date Occupation Industry Not on file Not on file Not on file Travel History Travel Start Travel End No recent travel history available. documented as of this encounter Last Filed Vital Signs Vital Sign Reading Time Taken Comments Blood Pressure 173/88 05/13/2019 3:20 PM CDT Pulse 75 05/13/2019 3:15 PM CDT Temperature 36.3 C (97.3 F) 05/13/2019 3:15 PM CDT Respiratory Rate - - Oxygen Saturation - - Inhaled Oxygen Concentration - - Weight 116.2 kg (256 lb 4 oz) 05/13/2019 3:15 PM CDT Height 165.1 cm (5' 5") 05/13/2019 3:15 PM CDT Body Mass Index 42.64 05/13/2019 3:15 PM CDT documented in this encounter Progress Notes Devika Malave, HELENE - 05/13/2019 2:45 PM CDT Chief complaint: Chief Complaint Patient presents with VAGINAL ITCHING HPI Patient is a LAF here for vaginal itching and feeling "hot" in vaginal area. Patient reports she went to PCP and was told she had "Thrush" in the vaginal area. Patient reports symptoms x3 months on and off. Histories OB History Para Term AB Living 5 3 3 2 3 SAB TAB Ectopic Multiple Live Births 2 # Outcome Date GA Lbr Emanuel/2nd Weight Sex Delivery Anes PTL Lv 5 SAB 4 SAB 3 Term 2 Term 1 Term Past Medical History: Diagnosis Date Anxiety 2009 ongoing, on medication Arthritis 2019 Bleeding ulcer Depression 2009 ongoing patient on meds. Hypertension 2009 pt on bp meds Screen for STD (sexually transmitted disease) 01/14/2019 Family History Problem Relation Age of Onset Hypertension Mother Depression Mother Diabetes Father Depression Sister Hypertension Sister Depression Brother No Significant Medical Problems Maternal Aunt No Significant Medical Problems Maternal Uncle No Significant Medical Problems Paternal Aunt No Significant Medical Problems Paternal Uncle Arthritis NoFHx Asthma NoFHx Breast Cancer NoFHx defects NoFHx Colon Cancer NoFHx Ovarian Cancer NoFHx Uterine Cancer NoFHx Cancer NoFHx Genetic NoFHx Heart NoFHx High cholesterol NoFHx Mental retardation NoFHx Osteoporosis NoFHx Psychiatry NoFHx Neurological NoFHx Other - see comments NoFHx Family Status Relation Name Status Mo Fa Sis Alive Bro MAunt Alive MUnc Alive PAunt Alive PUnc Alive MGMo MGFa PGMo PGFa NoFHx (Not Specified) Past Surgical History: Procedure Laterality Date SECTION x 3 Social History Socioeconomic History Marital status: Spouse name: Not on file Number of children: Not on file Years of education: Not on file Highest education level: Not on file Occupational History Not on file Social Needs Financial resource strain: Not on file Food insecurity: Worry: Not on file Inability: Not on file Transportation needs: Medical: Not on file Non-medical: Not on file Tobacco Use Smoking status: Never Smoker Smokeless tobacco: Never Used Substance and Sexual Activity Alcohol use: Yes Comment: occasionally Drug use: No Sexual activity: Yes Partners: Male control/protection: Post-menopausal Comment: last intercourse 11/21/2018 Lifestyle Physical activity: Days per week: Not on file Minutes per session: Not on file Stress: Not on file Relationships Social connections: Talks on phone: Not on file Gets together: Not on file Attends holiness service: Not on file Active member of club or organization: Not on file Attends meetings of clubs or organizations: Not on file Relationship status: Not on file Intimate partner violence: Fear of current or ex partner: Not on file Emotionally abused: Not on file Physically abused: Not on file Forced sexual activity: Not on file Other Topics Concern Not on file Social History Narrative Patient lives with son. Patient states she is orthodoxy. Patient feels safe at home. Social History Substance and Sexual Activity Sexual Activity Yes Partners: Male control/protection: Post-menopausal Comment: last intercourse 11/21/2018 Labs Labs are pending. Radiology No new radiology. Allergies Carmel is allergic to excedrin [[id number]-vgxmnnsh]; hydrochlorothiazide; and ibuprofen. Medications Carmel has a current medication list which includes the following prescription(s) : buspirone, hydralazine, mirtazapine, clonidine, hydroxyzine, metoprolol tartrate, and paroxetine. Review of Systems Genitourinary: Positive for vaginal discharge. BP (!) 173/88 (BP Location: Left arm, Patient Position: Sitting, BP CUFF SIZE: Adult Large) | Pulse75 | Temp 36.3 C (97.3 F) (Oral) | Ht 5' 5" (1.651 m ) | Wt 256 lb 4 oz (116.2 kg) | LMP 03/14/2009 (Approximate) | BMI 42.64 kg/ m Pregravid BMI: Could not be calculated Physical Exam Vitals reviewed. Constitutional: She is oriented to person, place, and time. She appears well- developed and well-nourished. Her body habitus is normal. Cardiovascular: Regular rate and rhythm. No peripheral edema present. Pulmonary/Chest: Normal inspiratory effort. Neuro/Psychiatric: Inappropriate mood and affect. She is oriented to person, place, and time. Skin: Skin normal. No lesion, no rash and no ulceration present. External genitalia: Normal external genitalia appropriate for age. Coremaker Experimental present for the exam: Iesha Samuel RN Assessment/Plan Vaginal yeast infection (primary encounter diagnosis) Vaginal itching Comment: see PI, wet [place] poisitve Plan: Miscellaneous Medical Supply Misc Medication given, patient educated to complete medication was directed. Urinary urgency Comment: POCT, blood and protein Plan: URINE CULTURE, POCT URINALYSIS W SPECIFIC GRAVITY Return to clinic in 11/2019 for WWE. Discussed treatment options. Medications as ordered. Reviewed patient instructions and provided printed copy. This visit did not involve counseling and coordination that comprised more than 50% of the visit time. HELENE Torres 05/13/2019 3:43 PM documented in this encounter Plan of Treatment Name Type Priority Associated Diagnoses Date/Time URINE CULTURE LAB Routine Urinary urgency 05/13/2019 3:44 PM CDT Health Maintenance Due Date Last Done Comments HEPATITIS C (HCV) SCREEN 1960 DTaP,Tdap,and Td Vaccines 1980 (1 - Tdap) COLONOSCOPY 2011 Zoster Recombinant Vaccine 2011 (SHINGRIX) (1 of 2) INFLUENZA VACCINE (#1) 2019 MAMMOGRAM 12/25/2019 12/24/2018, 03/23/2015, 10/25/2010 PAP SMEAR 12/04/2021 12/04/2018, 03/14/2015, 07/19/2010, Additional history exists PNEUMOCOCCAL 0-64 YEARS Aged Out No longer eligible COMBINED SERIES based on patient's age to complete this topic documented as of this encounter Procedures Procedure Name Priority Date/Time Associated Diagnosis Comments POCT URINALYSIS Routine 05/13/2019 3:43 PM Urinary urgency Results for this CDT procedure are in the results section. documented in this encounter Results POCT URINALYSIS W SPECIFIC GRAVITY (05/13/2019 3:43 PM CDT) POCT U SP GRAV . 1.005 - 1.025 mg/dl POCT PH U 5 5 - 8 mg/dl POCT U LEUK EST NEG Negative - Negative POCT U NIT NEG Negative - Negative POCT U PROT TRACE Negative - Negative POCT U GLU NEG Negative - Negative POCT U KETONE NEG Negative - Negative POCT U UROBILI . 0.2 - 1 mg/dl POCT U BILI . Negative - Negative POCT U BLD 250 Negative - Negative POCT U COLOR POCT U APPEAR Specimen Urine - URINE, UNSPECIFIED SOURCE documented in this encounter Visit Diagnoses Diagnosis Vaginal yeast infection - Primary Candidiasis of vulva and vagina Vaginal itching Pruritus of genital organs Urinary urgency Urgency of urination documented in this encounter Insurance Payer Benefit Plan / Subscriber ID Effective Dates Phone Address Type Group [facility]ILY [facility]ANNING [id number] 2018-Willie PEPPER Agency [place] 0-[address] [id number] [place] [phone] ([place]) [place] [address] documented as of this encounter Advance Directives Name Relationship Healthcare Agent Communication Relationship Abrahan Rodriguez Child Primary healthcare agent
--- OUTSIDE RECORDS SUMMARY | 2019-09-29 21:10 | XMS REPORT ---
:1960 Author Organization [facility] Address [address] [place] [address] Dr. Ansari [address] [place] [address] Care Team Providers Name Role Phone Unavailable Unavailable Unavailable Problems This patient has no known problems. Allergies, Adverse Reactions, Alerts This patient has no known allergies or adverse reactions. Medications This patient has no known medications.
--- OUTSIDE RECORDS SUMMARY | 2019-09-29 21:10 | XMS REPORT | Summary of Care ---
:1960 Author Organization [facility] - Health Address [address] [place] [address] Care Team Providers Name Role Phone Devika Malave Garcia [employer] Primary Care Provider Encounter Details Date Type Department Care Team Description 05/13/2019 Orders Only [facility] Doctor Unassigned, No [address] [facility] [place] [address] [address] [place] [address] Allergies Active Allergy Reactions Severity Noted Date Comments Jvuyaro-Eczgawteosvcs-Xglptq Swelling 04/28/2007 ne Hydrochlorothiazide Unknown - See 12/25/2009 Severe hyponatremia comments Ibuprofen Swelling 04/28/2007 documented as of this encounter (statuses as of 05/13/2019) Medications Medication Sig Dispensed Refills Start Date End Date Status PAROXETINE HCL 20 MG 1 daily 0 Active ORAL TAB metoprolol tartrate Take 50 mg by 0 Active (LOPRESSOR) 50 mg mouth 2 (two) tablet times daily. hydrOXYzine (ATARAX) Take 25 mg by 0 Active 25 mg tablet mouth every 6 (six) hours. cloniDINE 0.1 mg Take 1 tablet by 15 tablet 0 11/14/2017 Active tablet mouth at bedtime as needed (SBP>180 or DBP>120). hydralAZINE 50 mg Take 50 mg by 0 Active tablet mouth 2 (two) times daily. mirtazapine 30 mg Take 30 mg by 0 Active tablet mouth at bedtime. busPIRone 10 mg tablet Take 10 mg by 0 Active mouth 2 (two) times daily. documented as of this encounter (statuses as of 05/13/2019) Active Problems Problem Noted Date Screen for STD (sexually transmitted disease) 01/14/2019 [...] of this encounter Last Filed Vital Signs Not on filedocumented in this encounter Plan of Treatment Health Maintenance Due Date Last Done Comments [...] Procedure Name Priority Date/Time Associated Diagnosis Comments NO SHOW OR MISSED Routine 05/13/2019 3:00 PM APPOINTMENT POLICY CDT ACKNOWLEDGEMENT documented in this encounter Results Not on filedocumented in this encounter Insurance Payer Benefit Plan / Subscriber ID Effective Dates Phone Address Type Group [facility]ANNING [id number] 2018-Willie PEPP[employer] Agency [place] [place] [address] nt [id number] [place] [address] documented as of this encounter Advance Directives Name Relationship Healthcare Agent Communication Relationship Abrahan Rodriguez Child Primary healthcare agent
--- OUTSIDE RECORDS SUMMARY | 2019-09-29 21:10 | XMS REPORT | Summary of Care ---
:1960 Author Organization [facility] Address [address] [place] [address] Care Team Providers Name Role Phone Devika Malave [facility] Primary Care Provider Reason for Visit Reason Comments VAGINAL ITCHING Encounter Details Date Type Department Care Team Description 05/13/2019 Office Visit [facility]- Devika Malave, Vaginal [facility] infection (Primary Dx); [facility]; [address] [place] [address] Urinary urgency [place], [place] [address] [place], [place] [address] Allergies Active Allergy Reactions Severity Noted Date Comments Vsfoddr-Gpezwpdkdcwuq-Jhramp Swelling 04/28/2007 ne Hydrochlorothiazide Unknown - See [...] file Gets together: Not on file Attends scientologist service: Not on file Active member of [...] lives with son. Patient states she is synagogue. Patient feels safe at home. Social History Substance and Sexual Activity Sexual Activity Yes Partners: Male control/protection: Post-menopausal Comment: last intercourse 11/21/2018 Labs Labs are pending. Radiology No new radiology. Allergies Carmel is allergic to excedrin [uzmmbyt-qcmrvhopffezi-fjvglnus]; hydrochlorothiazide; and ibuprofen. Medications Carmel has a [...] genitalia: Normal external genitalia appropriate for age. Panel Installer present for the exam: Iesha Samuel RN [...] ID Effective Dates Phone Address Type Group [facility] FAMILY FAMILY PLANNING [id number] 2018-Willie PEPPER Agency [place] 0-[address]% nt [id number] [place] [phone] ([place]) [place] [address] documented as of this encounter Advance Directives Name Relationship Healthcare Agent Communication Relationship Abrahan Rodriguez Child Primary healthcare agent
--- OUTSIDE RECORDS SUMMARY | 2019-09-29 21:11 | XMS REPORT | Summary of Care ---
:1960 Author Organization [facility] Address [address] [place] [address] Care Team Providers Name Role Phone Devika Malave [facility] Primary Care Provider Reason for Visit Reason Comments VAGINAL ITCHING Encounter Details Date Type Department Care Team Description 05/13/2019 Office Visit [facility]- Devika Malave, Vaginal yeast infection (Primary Dx); [facility] Vaginal itching; [address] [place] [address] Urinary [place] [address] [place], [place] [address] Allergies Active Allergy Reactions Severity Noted Date Comments Rhxhjie-Kirnufmlvrnug-Vobusl Swelling 04/28/2007 ne Hydrochlorothiazide Unknown - See [...] Sign Reading Time Taken Comments Blood Pressure 142/78 05/13/2019 4:11 PM CDT Pulse 75 05/13/2019 3:15 PM [...] file Gets together: Not on file Attends hindu service: Not on file Active member of [...] lives with son. Patient states she is pentecostalism. Patient feels safe at home. Social History Substance and Sexual Activity Sexual Activity Yes Partners: Male control/protection: Post-menopausal Comment: last intercourse 11/21/2018 Labs Labs are pending. Radiology No new radiology. Allergies Carmel is allergic to excedrin [scrqfol-jwdfzkyvuiklu-abkzpdgq]; hydrochlorothiazide; and ibuprofen. Medications Carmel has a [...] genitalia: Normal external genitalia appropriate for age. Termite Helper present for the exam: Iesha Samuel RN [...] documented in this encounter Plan of Treatment Date Type Specialty Care Team Description 12/14/2019 Office Visit [facility] Devika Malave FNP [address] [place] [address] [phone] Name Type Priority Associated Diagnoses Date/Time URINE [...] [facility] [id number] 2018-Willie PEPPER Agency [address] [place] 0-[address]% nt [id number] [place] [address] ([place]) [place] [address] documented as of this encounter Advance Directives Name Relationship Healthcare Agent Communication Relationship Abrahan Rodriguez Child Primary healthcare agent
--- OUTSIDE RECORDS SUMMARY | 2019-09-29 21:11 | XMS REPORT | Summary of Care ---
:1960 Author Organization [facility] Address [address] [place] [address] Care Team Providers Name Role Phone Devika Malave [facility] Primary Care Provider Reason for Visit Reason Comments VAGINAL ITCHING Encounter Details Date Type Department Care Team Description 05/13/2019 Office Visit [facility]- Devika Malave, Vaginal yeast infection (Primary Dx); [facility] Vaginal itching; [address] [place] [address] Urinary [place] [address] [place], [place] [address] Allergies Active Allergy Reactions Severity Noted Date Comments Jbspnhd-Airvmpetpizih-Rouuol Swelling 04/28/2007 ne Hydrochlorothiazide Unknown - See [...] file Gets together: Not on file Attends buddhism service: Not on file Active member of [...] lives with son. Patient states she is worship. Patient feels safe at home. Social History Substance and Sexual Activity Sexual Activity Yes Partners: Male control/protection: Post-menopausal Comment: last intercourse 11/21/2018 Labs Labs are pending. Radiology No new radiology. Allergies Carmel is allergic to excedrin [jjdwvoj-asjpgwhgfsjww-cdpbkmsm]; hydrochlorothiazide; and ibuprofen. Medications Carmel has a [...] genitalia: Normal external genitalia appropriate for age. Barrel Inspector Tight present for the exam: Iesha Samuel RN [...] ID Effective Dates Phone Address Type Group [facility] FAMILY PLANN[facility] [id number] 2018-Willie PEPPER Agency [place] 0-100% [id number] [place] [phone] ([place]) [place] [address] documented as of this encounter Advance Directives Name Relationship Healthcare Agent Communication Relationship Abrahan Rodriguez Child Primary healthcare agent
--- OUTSIDE RECORDS SUMMARY | 2019-09-29 21:11 | XMS REPORT | Summary of Care ---
:1960 Author Organization [facility] Address [address] [place] [address] Care Team Providers Name Role Phone Devika Malave [facility] Primary Care Provider Reason for Visit Reason Comments VAGINAL ITCHING Encounter Details Date Type Department Care Team Description 05/13/2019 Office Visit [facility]- Devika Malave, Vaginal yeast infection (Primary Dx); [facility] Vaginal itching; [address] [place] [address] Urinary urgency [place], [place] [address] [place], [place] [address] Allergies Active Allergy Reactions Severity Noted Date Comments Jnhzrpu-Uvspbunqtmyco-Jnllrh Swelling 04/28/2007 ne Hydrochlorothiazide Unknown - See [...] file Gets together: Not on file Attends bahai service: Not on file Active member of [...] lives with son. Patient states she is denominational. Patient feels safe at home. Social History Substance and Sexual Activity Sexual Activity Yes Partners: Male control/protection: Post-menopausal Comment: last intercourse 11/21/2018 Labs Labs are pending. Radiology No new radiology. Allergies Carmel is allergic to excedrin [yxpkjph-ofkdvkoobjylz-sprdddkh]; hydrochlorothiazide; and ibuprofen. Medications Carmel has a [...] genitalia: Normal external genitalia appropriate for age. Propagation Worker present for the exam: Iesha Samuel RN [...] [facility]ell[facility] Devika Malave FNP [address] [place] [address] [phone] Name Type Priority Associated Diagnoses Date/Time URINE [...] ID Effective Dates Phone Address Type Group [facility] FAMILY PLANNING [id number] 2018-Willie PEPPER Agency [address] [address] 0-100% [place] [id number] [place] [address] ([place]) [place] [address] documented as of this encounter Advance Directives Name Relationship Healthcare Agent Communication Relationship Abrahan Rodriguez Child Primary healthcare agent
--- OUTSIDE RECORDS SUMMARY | 2019-09-29 21:11 | XMS REPORT | Summary of Care ---
:1960 Author Organization [facility] Address [address] [place] [address] Care Team Providers Name Role Phone Devika Malave [facility] Primary Care Provider Reason for Visit Reason Comments VAGINAL ITCHING Encounter Details Date Type Department Care Team Description 05/13/2019 Office Visit [facility]- Devika Malave, Vaginal yeast infection (Primary Dx); [facility] Vaginal itching; [address] [place] [address] Urinary [place] [address] [place], [place] [address] Allergies Active Allergy Reactions Severity Noted Date Comments Vikmhfh-Bipltbpeqjazp-Inciax Swelling 04/28/2007 ne Hydrochlorothiazide Unknown - See [...] file Gets together: Not on file Attends presybeterian service: Not on file Active member of [...] lives with son. Patient states she is zoroastrianism. Patient feels safe at home. Social History Substance and Sexual Activity Sexual Activity Yes Partners: Male control/protection: Post-menopausal Comment: last intercourse 11/21/2018 Labs Labs are pending. Radiology No new radiology. Allergies Carmel is allergic to excedrin [clxzzqw-iimblrtfjkfuc-elpfailt]; hydrochlorothiazide; and ibuprofen. Medications Carmel has a [...] genitalia: Normal external genitalia appropriate for age. Pizza Driver present for the exam: Iesha Samuel RN [...] ID Effective Dates Phone Address Type Group [facility]ILY FAMILY PLANNING [id number] 2018-Willie [employer] Agency [place] [place] 0-[address] nt [id number] [place] [phone] ([place]) [place] [address] documented as of this encounter Advance Directives Name Relationship Healthcare Agent Communication Relationship Abrahan Rodriguez Child Primary healthcare agent
[2019-09-29] MEDS ORDERED: METOCLOPRAMIDE 10 MG/2mL INJ ONE (22:23)
[2019-09-29] MEDS ORDERED: NA CHLORIDE 0.9% 500 ML ONE (22:24)
[2019-09-29 22:51] LABS: Urine Blood TRACE (NEG); Urine Glucose NEGATIVE (NEG); Urine Protein NEGATIVE (NEG); Urine pH 6.5 (5.0-7.0)
[2019-09-29 23:07] LABS: Absolute Lymphocytes (CBC) 1.7 K/uL (0.7-4.9); Basophils % 0.6 % (0-1.3); Hematocrit 43.8 % (36.0-45.0); MPV 7.2 fL (7.6-11.3); RBC Red Blood Cell Count 4.44 M/uL (3.86-4.86)
[2019-09-29 23:22] LABS: BUN Blood Urea Nitrogen 10 mg/dL (7-18); Bicarbonate 29 mmol/L (21-32); Glucose Level 100 mg/dL (74-106); Potassium 3.7 mmol/L (3.5-5.1); Sodium Level 135 mmol/L (136-145); Troponin (Emerg Dept Use Only) < 0.02 ng/mL (0.0-0.045)
[2019-09-29 23:29] LABS: Urine Bacteria <20 /HPF (<20); Urine Culture Reflex Order NOT NEEDED; Urine RBC <5 /HPF (NONE SEEN)
--- NOTE | 2019-09-29 23:52 | EDPHYS ---
Physician Documentation [facility] Name: Carmel Rodriguez Age: 59 yrs Sex: Female : 1960 Arrival Date: 09/29/2019 Time: 21:25 Bed 15 Private MD: ED Physician Melchor Sarmiento HPI: 09/29 23:12 This 59 yrs old Female presents to ER via EMS with complaints of headache, rn high blood pressure. 23:12 The patient complains of pain to the forehead, right synagogue and left synagogue. The rn patient describes the headache as aching. Onset: The symptoms/episode began/occurred 6 week(s) ago. Severity of symptoms: At its worst the pain was moderate, in the emergency department the pain has improved. Headache History: The patient has had previous headaches. The symptoms are alleviated by nothing. the symptoms are aggravated by nothing. The patient has experienced similar episodes in the past. The patient has not recently seen a physician. Reports headache and intermittent high blood pressure since gi, also mild dizziness, reports symptoms come with high blood pressure, and goes away when BP normalizes. No fever, no head injury, no chest pain. NO vomiting/diarrhea/abd pain.. Historical: - Allergies: 21:08 ACETAMINOPHEN; jb4 21:08 CALCIUM CARBONATE; jb4 21:08 EXCEDRIN; jb4 21:08 Excedrin PM; jb4 21:08 Ibuprofen; jb4 21:08 NSAIDS; jb4 - Home Meds: 21:08 buspirone 10 mg oral tab 3 tabs 2 times per day [Active]; hydralazine 50 mg oral tab 1 jb4 tab 2 times per day [Active]; metoprolol tartrate 50 mg Oral tab 1 tab 2 times per day [Active]; hydroxyzine HCl 50 mg oral tab 1 tab daily [Active]; mirtazapine 30 mg Oral tab 1 tab once daily [Active]; - PMHx: 21:08 Anxiety; Depression; Hypertension; jb4 - PSHx: 21:08 ; jb4 - Immunization history:: Adult Immunizations up to date. - Social history:: Smoking status: Patient/guardian denies using tobacco, Patient uses alcohol, but reports only rare drinking. - Ebola Screening: : No symptoms or risks identified at this time. - Family history:: not pertinent. - Hospitalizations: : No recent hospitalization is reported. ROS: 23:12 Constitutional: Negative for fever, chills, and weight loss, Eyes: Negative for injury, rn pain, redness, and discharge, Neck: Negative for injury, pain, and swelling, Cardiovascular: Negative for chest pain, palpitations, and edema, Respiratory: Negative for shortness of breath, cough, wheezing, and pleuritic chest pain, Abdomen/GI: Negative for abdominal pain, nausea, vomiting, diarrhea, and constipation, MS/Extremity: Negative for injury and deformity, Skin: Negative for injury, rash, and discoloration, Neuro: Negative for weakness, numbness, tingling, and seizure. Exam: 23:12 Constitutional: This is a well developed, well nourished patient who is awake, alert, rn and in no acute distress. Head/Face: Normocephalic, atraumatic. Eyes: Pupils equal round and reactive to light, extra-ocular motions intact. Lids and lashes normal. Conjunctiva and sclera are non-icteric and not injected. Cornea within normal limits. Periorbital areas with no swelling, redness, or edema. ENT: MMM Neck: Trachea midline, no thyromegaly or masses palpated, and no cervical lymphadenopathy. Supple, full range of motion without nuchal rigidity, or vertebral point tenderness. No Meningismus. Cardiovascular: Regular rate and rhythm. No pulse deficits. Respiratory: No increased work of breathing, no retractions or nasal flaring. Abdomen/GI: soft, non-tender MS/ Extremity: Pulses equal, no cyanosis. Neurovascular intact. Full, normal range of motion. Equal circumference. Neuro: Awake and alert, GCS 15, oriented to person, place, time, and situation. Cranial nerves II-XII grossly intact. Motor strength 5/5 in all extremities. Sensory grossly intact. Cerebellar exam normal. Vital Signs: 21:08 BP 179 / 82; Pulse 77; Resp 18; Temp 98.2(O); Pulse Ox 100% on R/A; Weight 113.4 kg jb4 (R); Height 5 ft. 5 in. (165.10 cm); Pain 5/10; 22:30 BP 179 / 75; Pulse 72; Resp 16; Pulse Ox 100% on R/A; jb4 23:30 BP 158 / 75; Pulse 70; Resp 16; Pulse Ox 96% on R/A; jb4 21:08 Body Mass Index 41.60 (113.40 kg, 165.10 cm) jb4 Aristeo Coma Score: 23:49 Eye Response: spontaneous(4). Verbal Response: oriented(5). Motor Response: obeys rn commands(6). Total: 15. MDM: 21:39 Patient medically screened. rn 23:49 Differential diagnosis: hypertensive headache, migraine, tension headache. Data rn reviewed: vital signs, nurses notes, lab test result(s), EKG, radiologic studies, CT scan, and as a result, I will discharge patient. Counseling: I had a detailed discussion with the patient and/or guardian regarding: the historical points, exam findings, and any diagnostic results supporting the discharge/admit diagnosis, lab results, radiology results, the need for outpatient follow up, to return to the emergency department if symptoms worsen or persist or if there are any questions or concerns that arise at home. Response to treatment: the patient's symptoms have markedly improved after treatment, the patient's condition has returned to base line, the patient is now symptom free, and as a result, I will discharge patient. ED course: Neg w/u, normal CT head, no ischemia on ECG, improved BP and headache resolved, recommend pcp f/u for medication management. . 09/29 22:00 Order name: CBC with Diff; Complete Time: 23:46 rn 09/29 22:00 Order name: Basic Metabolic Panel; Complete Time: 23:46 rn 09/29 22:00 Order name: CT Head Brain wo Cont rn 09/29 22:00 Order name: Urine Microscopic Only; Complete Time: 23:46 rn 09/29 22:00 Order name: Troponin (emerg Dept Use Only); Complete Time: 23:46 rn 09/29 22:40 Order name: Urine Dipstick--Ancillary (enter results); Complete Time: 23:06 ar5 09/29 22:00 Order name: IV Start; Complete Time: 22:38 rn 09/29 22:00 Order name: Urine Dipstick-Ancillary (obtain specimen); Complete Time: 22:15 rn 09/29 22:00 Order name: EKG; Complete Time: 22:01 rn 09/29 22:00 Order name: EKG - Nurse/Tech; Complete Time: 22:38 rn Administered Medications: 22:38 Not Given (Patient Refused): Reglan 10 mg IVP once; over 1 to 2 minutes jb4 22:39 Drug: NS 0.9% 500 ml Route: IV; Rate: bolus; Site: left antecubital; jb4 09/30 00:08 Follow up: Response: No adverse reaction; IV Status: Completed infusion; IV Intake: jb4 350ml Disposition: 09/29/19 23:51 Discharged to Home. Impression: Headache, Hypertension. - Condition is Stable. - Discharge Instructions: General Headache Without Cause, Hypertension. - Medication Reconciliation Form, Thank You Letter, Antibiotic Education, Prescription Opioid Use form. - Follow up: Private Physician; When: As needed; Reason: Recheck today's complaints, Re-evaluation by your physician. - Problem is new. - Symptoms have improved. Signatures: Dispatcher [employer] EDMS Melchor Sarmiento MD MD rn Bryson, James, RN RN jb4 Corrections: (The following items were deleted from the chart) 00:09 09/29 23:51 09/29/2019 23:51 Discharged to Home. Impression: Headache; Hypertension. jb4 Condition is Stable. Forms are Medication Reconciliation Form, Thank You Letter, Antibiotic Education, Prescription Opioid Use. Follow up: Private Physician; When: As needed; Reason: Recheck today's complaints, Re-evaluation by your physician. Problem is new. Symptoms have improved. rn
--- NOTE | 2019-09-29 23:52 | ER ---
Nurse's Notes [facility] Name: Carmel Rodriguez Age: 59 yrs Sex: Female : 1960 Arrival Date: 09/29/2019 Time: 21:25 Bed 15 Private MD: Diagnosis: Headache;Hypertension Presentation: 09/29 21:08 Presenting complaint: EMS states: Pt reports having a headache since and jb4 being dizzy for over a month. reports that her blood pressure medication is not working. [place] [id number], HR 80, 95% RA. 21:08 Transition of care: patient was not received from another setting of care. Onset of jb4 symptoms was August 23, 2019. Risk Assessment: Do you want to hurt yourself or someone else? Patient reports no desire to harm self or others. Initial Sepsis Screen: Does the patient meet any 2 criteria? No. Patient's initial sepsis screen is negative. Does the patient have a suspected source of infection? No. Patient's initial sepsis screen is negative. Care prior to arrival: None. 21:08 Method Of Arrival: EMS: [facility] jb4 21:08 Acuity: CHRISTINE 3 jb4 Historical: - Allergies: 21:08 ACETAMINOPHEN; jb4 21:08 CALCIUM CARBONATE; jb4 21:08 EXCEDRIN; jb4 21:08 Excedrin PM; jb4 21:08 Ibuprofen; jb4 21:08 NSAIDS; jb4 - Home Meds: 21:08 buspirone 10 mg oral tab 3 tabs 2 times per day [Active]; hydralazine 50 mg oral tab 1 jb4 tab 2 times per day [Active]; metoprolol tartrate 50 mg Oral tab 1 tab 2 times per day [Active]; hydroxyzine HCl 50 mg oral tab 1 tab daily [Active]; mirtazapine 30 mg Oral tab 1 tab once daily [Active]; - PMHx: 21:08 Anxiety; Depression; Hypertension; jb4 - PSHx: 21:08 ; jb4 - Immunization history:: Adult Immunizations up to date. - Social history:: Smoking status: Patient/guardian denies using tobacco, Patient uses alcohol, but reports only rare drinking. - Ebola Screening: : No symptoms or risks identified at this time. - Family history:: not pertinent. - Hospitalizations: : No recent hospitalization is reported. Screenin:08 Abuse screen: Denies threats or abuse. Nutritional screening: No deficits noted. jb4 Tuberculosis screening: No symptoms or risk factors identified. Fall Risk None identified. Assessment: 21:08 General: Appears in no apparent distress. uncomfortable, Behavior is calm, cooperative, jb4 appropriate for age. Pain: Complains of pain in Headache. Pain radiates to neck Pain currently is 5 out of 10 on a pain scale. Neuro: Level of Consciousness is awake, alert, obeys commands, Oriented to person, place, time, situation. Cardiovascular: Patient's skin is warm and dry. Respiratory: Airway is patent Respiratory effort is even, unlabored, Respiratory pattern is regular, symmetrical. GI: No signs and/or symptoms were reported involving the gastrointestinal system. : No signs and/or symptoms were reported regarding the genitourinary system. EENT: No signs and/or symptoms were reported regarding the EENT system. Derm: Skin is intact, Skin is pink, warm \T\ dry. Musculoskeletal: Circulation, motion, and sensation intact. Range of motion: intact in all extremities. 22:00 Reassessment: Patient appears in no apparent distress at this time. Patient and/or jb4 family updated on plan of care and expected duration. Pain level reassessed. Patient is alert, oriented x 3, equal unlabored respirations, skin warm/dry/pink. 23:00 Reassessment: Patient appears in no apparent distress at this time. Patient and/or jb4 family updated on plan of care and expected duration. Pain level reassessed. Patient is alert, oriented x 3, equal unlabored respirations, skin warm/dry/pink. 23:45 Reassessment: Patient appears in no apparent distress at this time. Patient and/or jb4 family updated on plan of care and expected duration. Pain level reassessed. Patient is alert, oriented x 3, equal unlabored respirations, skin warm/dry/pink. PT ambulated to the restroom with steady gait and back to bed. Vital Signs: 21:08 BP 179 / 82; Pulse 77; Resp 18; Temp 98.2(O); Pulse Ox 100% on R/A; Weight 113.4 kg jb4 (R); Height 5 ft. 5 in. (165.10 cm); Pain 5/10; 22:30 BP 179 / 75; Pulse 72; Resp 16; Pulse Ox 100% on R/A; jb4 23:30 BP 158 / 75; Pulse 70; Resp 16; Pulse Ox 96% on R/A; jb4 21:08 Body Mass Index 41.60 (113.40 kg, 165.10 cm) jb4 Aristeo Coma Score: 23:49 Eye Response: spontaneous(4). Verbal Response: oriented(5). Motor Response: obeys rn commands(6). Total: 15. ED Course: 21:08 Arm band placed on right wrist. EKG completed in triage. Results shown to MD. jb4 21:08 Patient has correct armband on for positive identification. Bed in low position. Call jb4 light in reach. Side rails up X 1. Pulse ox on. NIBP on. 21:25 Patient arrived in ED. jb4 21:27 Triage completed. jb4 21:39 Melchor Sarmiento MD is Attending Physician. rn 21:50 Noble Wang, RN is Primary Nurse. jb4 22:15 Urine Microscopic Only Sent. jb4 22:22 CT Head Brain wo Cont In Process Unspecified. EDMS 23:30 No provider procedures requiring assistance completed. IV discontinued, intact, jb4 bleeding controlled, No redness/swelling at site. Pressure dressing applied. Administered Medications: 22:38 Not Given (Patient Refused): Reglan 10 mg IVP once; over 1 to 2 minutes jb4 22:39 Drug: NS 0.9% 500 ml Route: IV; Rate: bolus; Site: left antecubital; jb4 09/30 00:08 Follow up: Response: No adverse reaction; IV Status: Completed infusion; IV Intake: jb4 350ml Intake: 00:08 IV: 350ml; Total: 350ml. jb4 Outcome: 09/29 23:51 Discharge ordered by . rn 09/30 00:08 Discharged to home ambulatory, with family. jb4 Condition: stable Discharge instructions given to patient, family, Instructed on discharge instructions, follow up and referral plans. Demonstrated understanding of instructions, follow-up care. 00:09 Patient left the ED. jb4 Signatures: Dispatcher [employer] EDMS Melchor Sarmiento MD MD rn Bryson, James, RN RN jb4
[2019-09-30 00:44] VITALS: TEMP 98.2
[2019-09-30 00:48] VITALS: BP 158/75; O2SAT 96
--- NOTE | 2019-09-30 12:21 | RAD REPORT ---
EXAM DESCRIPTION: CT of the head without contrast CLINICAL HISTORY: HEADACHE COMPARISON: None available TECHNIQUE: Axial CT of the head obtained from the skull apex to the skull base without contrast. FINDINGS: No acute intracranial hemorrhage identified. No mass, mass effect, shift of the midline, a bnormal extra-axial fluid collection or CT evidence of acute ischemic change identified. The ventricu lar system is unremarkable. No acute abnormalities of the supratentorial white matter, basal gangli a, cerebellum, or brainstem. The visualized paranasal sinuses and the mastoids are clear. No skull fracture identified. Visualized orbits and globes are unremarkable. IMPRESSION: 1. No acute intracranial abnormality identified. This exam was performed according to our departmental dose-optimization program, which includes autom ated exposure control, adjustment of the mA and/or kV according to patient size and/or use of iterati ve reconstruction technique. Electronically signed by: Taiwo Galaviz 09/29/2019 10:32 PM NURSING ASSISTANT Due to temporary technical issues with the PACS/Fluency reporting system, reports are being signed by the in house radiologist as a courtesy to ensure prompt reporting. The interpreting radiologist is f ully responsible for the content of the report.
--- NOTE | 2019-09-30 14:40 | EKG ---
Test Date: 2019-09-29 Test Time: 22:26:12 [employer]: CRISTY MEASUREMENT RESULTS: Intervals: Rate: 71 CA: 174 QRSD: 80 QT: 382 QTc: 415 Buras: P: 54 CA: 174 QRS: 44 T: 13 INTERPRETIVE STATEMENTS: Normal sinus rhythm Normal ECG Compared to ECG 04/19/2019 15:34:45 No significant changes Electronically Signed On 09-30-19 14:38:34 [employer] by Jacinto Hurt
== END 2019-09-30 00:09 | disposition home or self-care (01) ==
LOC: ER 21:08
DX: I10 Essential (primary) hypertension (principal); F34.1 Dysthymic disorder; Z88.6 Allergy status to analgesic agent; Z88.8 Allergy status to other drugs, medicaments and biological substances
CPT/HCPCS: 36415; 70450; 80048; 81003; 81015; 84484; 85025; 93005; 96360; 99284; J2765; J7040

== ENCOUNTER 2021-05-10 00:51 | Emergency (ER) | payer SELFPAY ==
--- OUTSIDE RECORDS SUMMARY | 2021-05-10 00:53 | XMS REPORT | Continuity of Care Document ---
:1960 Author Organization [facility] t Address [address] [place] [address] Care Team Providers Name Role Phone Rambo Paul Attending Clinician Elena Estrada NP Attending Clinician Problems This patient has no known problems. Allergies, Adverse Reactions, Alerts This patient has no known allergies or adverse reactions. Medications This patient has no known medications. Procedures This patient has no known procedures. Encounters Start End Encounter Admission Attending Care Care Encounter Source Date/Time Date/Time Type Type Clinicians Facility Department ID 2021-01-23 2021-01-23 [facility] [id number] 13:39:55 23:59:00 Encounter [facility] [id number] [facility] [id number] [place] AT [id number] [address] 2021-01-23 2021-01-23 Telephone [facility] [id number] 00:00:00 00:00:00 [facility] [id number] [facility] [id number] [facility] [id number] & CHILD [facility] 2021-01-02 2021-01-02 Telephone [facility] [id number] 00:00:00 00:00:00 Key C [place] [id number] [facility] [id number] [facility]ERNAL [id number] & CHILD 107 [facility] 2020-11-11 2020-11-11 [facility] [id number] 00:00:00 00:00:00 [facility] [place] [id number] [facility] [id number] MATERNAL [id number] & CHILD 107 [facility] 2020-10-17 2020-10-17 [facility] [id number] 00:00:00 00:00:00 (Out) [facility] [id number] [facility] [id number] MATERNAL [id number] & CHILD 107 [facility] 2020-09-07 2020-09-07 Emergency [facility] [id number] 16:29:00 20:08:00 [place] [id number] [place] [id number] [place] [id number] 2020-09-07 2020-09-07 Office [facility] [id number] 14:27:17 15:59:19 Visit [facility] [id number] [facility] [id number] [facility] [id number] & CHILD 107 [facility] Results This patient has no known results.
[2021-05-10 06:30] LABS: Protime INR 1.09
[2021-05-10 06:32] LABS: Absolute Lymphocytes (CBC) 0.8 K/uL (0.7-4.9); Basophils % 0.2 % (0-1.3); Hematocrit 40.9 % (36.0-45.0); Lymphocytes % 11.2 % (15.3-44.8); MPV 6.9 fL (7.6-11.3); RBC Red Blood Cell Count 4.15 M/uL (3.86-4.86)
[2021-05-10 06:52] LABS: ALT/SGPT 43 U/L (12-78); AST/SGOT 26 U/L (15-37); Albumin 3.9 g/dL (3.4-5.0); Alkaline Phosphatase 89 U/L (45-117); BUN Blood Urea Nitrogen 7 mg/dL (7-18); Bicarbonate 27 mmol/L (21-32); Bilirubin Direct 0.1 mg/dL (0-0.2); Bilirubin Total 0.5 mg/dL (0.2-1.0); Glucose Level 121 mg/dL (74-106); Lipase 89 U/L (73-393); Magnesium 2.1 mg/dL (1.8-2.4); NT PRO-BNP 161 pg/mL (<125); Potassium 3.8 mmol/L (3.5-5.1); Protein, Total 8.3 g/dL (6.4-8.2); Sodium Level 136 mmol/L (136-145); Troponin (Emerg Dept Use Only) < 0.02 ng/mL (0.0-0.045)
[2021-05-10 07:07] LABS: Platelet Estimate ADEQ
[2021-05-10 07:08] LABS: Blood Morphology Comment NOT SEEN (NOT SEEN)
--- NOTE | 2021-05-10 07:23 | RAD REPORT ---
EXAM DESCRIPTION: RAD - Chest Single View - 05/10/2021 6:56 am CLINICAL HISTORY: COUGH COMPARISON: Chest Single View dated 04/19/2019; Chest Single View dated 01/25/2018; Chest Single View d ated 05/24/2017; CHEST SINGLE VIEW dated 01/16/2015 FINDINGS: Increased prominence of the pulmonary vasculature. No acute osseous abnormality. Difficult to exclude small effusions. Cardiomegaly. Decreased lung volumes peer IMPRESSION: Worsened aeration of the lungs likely reflecting pulmonary edema though multifocal pneum onia is within the differential.
--- NOTE | 2021-05-10 08:11 | RAD REPORT ---
EXAM DESCRIPTION: CT - Chest For Pe Angio - 05/10/2021 8:00 am CLINICAL HISTORY: Chest pain;Dyspnea COMPARISON: No comparisons FINDINGS: Chest Wall: No suspicious thyroid nodules or pathologic lymphadenopathy. Lungs: No acute abnormality. Limited by respiratory motion. Pleura: No significant effusions or pneumothorax. Mediastinum/kristal: No pathologic lymphadenopathy. Pulmonary arteries/Aorta: No filling defect identified. Some of the segmental and subsegmental pulmon herlinda arteries are not well evaluated. No aortic aneurysm. Heart: No significant pericardial effusion. Normal heart size. Upper abdomen: No acute abnormality. Hepatic steatosis. Bones: No acute abnormality. IMPRESSION: Negative for pulmonary embolism. No other acute findings identified within the chest.
--- NOTE | 2021-05-10 08:18 | EDPHYS ---
Physician Documentation [facility] Name: Carmel Rodriguez Age: 60 yrs Sex: Female : 1960 Arrival Date: 05/10/2021 Time: 00:57 Bed 15 Private MD: ED Physician Jose Angel Brown HPI: 05/10 07:25 This 60 yrs old Female presents to ER via EMS with complaints of Breathing dominick Difficulty. 07:25 The patient has shortness of breath at rest, with light activity. Onset: The dominick symptoms/episode began/occurred 3 day(s) ago. Duration: The symptoms are continuous, and are steadily getting worse. The patient's shortness of breath has no apparent modifying factors. Associated signs and symptoms: Pertinent positives: non-productive cough. Severity of symptoms: At their worst the symptoms were mild. The patient has not experienced similar symptoms in the past. Historical: - Allergies: 02:57 ACETAMINOPHEN; bb 02:57 CALCIUM CARBONATE; bb 02:57 EXCEDRIN; bb 02:57 Excedrin PM; bb 02:57 Ibuprofen; bb 02:57 NSAIDS; bb - PMHx: 02:57 Anxiety; Depression; Hypertension; bb - Immunization history:: Adult Immunizations up to date, Client reports receiving the 2nd dose of the Covid vaccine. - Social history:: Smoking status: Patient denies any tobacco usage or history of. ROS: 07:27 Constitutional: Negative for fever, chills, and weight loss, Eyes: Negative for injury, dominick pain, redness, and discharge, ENT: Negative for injury, pain, and discharge, Neck: Negative for injury, pain, and swelling, Abdomen/GI: Negative for abdominal pain, nausea, vomiting, diarrhea, and constipation, Back: Negative for injury and pain, : Negative for injury, bleeding, discharge, and swelling, MS/Extremity: Negative for injury and deformity, Skin: Negative for injury, rash, and discoloration, Neuro: Negative for headache, weakness, numbness, tingling, and seizure, Psych: Negative for depression, anxiety, suicide ideation, homicidal ideation, and hallucinations, Allergy/Immunology: Negative for hives, rash, and allergies, Endocrine: Negative for neck swelling, polydipsia, polyuria, polyphagia, and marked weight changes, Hematologic/Lymphatic: Negative for swollen nodes, abnormal bleeding, and unusual bruising. 07:27 Cardiovascular: Positive for chest pain, of the chest. 07:27 Respiratory: Positive for cough, shortness of breath. Exam: 07:27 Constitutional: This is a well developed, well nourished patient who is awake, alert, dominick and in no acute distress. Head/Face: Normocephalic, atraumatic. Eyes: Pupils equal round and reactive to light, extra-ocular motions intact. Lids and lashes normal. Conjunctiva and sclera are non-icteric and not injected. Cornea within normal limits. Periorbital areas with no swelling, redness, or edema. ENT: Nares patent. No nasal discharge, no septal abnormalities noted. Tympanic membranes are normal and external auditory canals are clear. Oropharynx with no redness, swelling, or masses, exudates, or evidence of obstruction, uvula midline. Mucous membranes moist. Neck: Trachea midline, no thyromegaly or masses palpated, and no cervical lymphadenopathy. Supple, full range of motion without nuchal rigidity, or vertebral point tenderness. No Meningismus. Chest/axilla: Normal chest wall appearance and motion. Nontender with no deformity. No lesions are appreciated. Cardiovascular: Regular rate and rhythm with a normal S1 and S2. No gallops, murmurs, or rubs. Normal PMI, no JVD. No pulse deficits. Respiratory: Lungs have equal breath sounds bilaterally, clear to auscultation and percussion. No rales, rhonchi or wheezes noted. No increased work of breathing, no retractions or nasal flaring. Abdomen/GI: Soft, non-tender, with normal bowel sounds. No distension or tympany. No guarding or rebound. No evidence of tenderness throughout. Back: No spinal tenderness. No costovertebral tenderness. Full range of motion. Female : Normal external genitalia. Skin: Warm, dry with normal turgor. Normal color with no rashes, no lesions, and no evidence of cellulitis. MS/ Extremity: Pulses equal, no cyanosis. Neurovascular intact. Full, normal range of motion. Neuro: Awake and alert, GCS 15, oriented to person, place, time, and situation. Cranial nerves II-XII grossly intact. Motor strength 5/5 in all extremities. Sensory grossly intact. Cerebellar exam normal. Normal gait. Psych: Awake, alert, with orientation to person, place and time. Behavior, mood, and affect are within normal limits. 07:27 Musculoskeletal/extremity: DVT Exam: No signs of deep vein thrombosis. no pain, no swelling, no tenderness, negative Homans' sign noted on exam, no appreciated bluish discoloration, no erythema, no increased warmth. 07:31 ECG was reviewed by the Attending Physician. [facility] Vital Signs: 02:41 BP 153 / 73; Pulse 72; Resp 18 A; Temp 98.4(O); Pulse Ox 98% on R/A; Weight 115.21 kg bb (R); Height 5 ft. 5 in. (165.10 cm); 06:05 BP 151 / 74; Pulse 70; Resp 18 S; Pulse Ox 98% on R/A; bb 08:48 BP 153 / 70; Pulse 71; Resp 18; Pulse Ox 97% on R/A; tw2 02:41 Body Mass Index 42.27 (115.21 kg, 165.10 cm) bb MDM: 07:28 Differential diagnosis: Anxiety Reaction pneumonia, pulmonary edema, Pulmonary Embolism dominick reactive airway disease. Antibiotic administration: Not indicated. The patient's Wells Deep Vein Thrombosis Score was calculated as follows: Total Score: 0-2 Pts- Low Risk. The patient's pulmonary embolism risk score was calculated as follows: Total Score: 0-2 points. This patient was found to be at low risk for a pulmonary embolism by using the Well's assessment criteria. Immunization status: Influenza vaccine:. Data reviewed: vital signs, nurses notes, lab test result(s), EKG, radiologic studies, CT scan, plain films. Data interpreted: monitoring manager: rate is 70 beats/min, rhythm is normal sinus rhythm, Pulse oximetry: on room air is 98 %. Test interpretation: by ED physician or midlevel provider: ECG, plain radiologic studies. Counseling: I had a detailed discussion with the patient and/or guardian regarding: the historical points, exam findings, and any diagnostic results supporting the discharge/admit diagnosis. 07:58 Patient medically screened. jr8 08:16 ED course: No acute pulmonary, cardiac, mediastinal, soft tissue, or bony findings on jr8 CAT scan. No pulmonary embolism identified as well. Patient remains hemodynamically stable and with normal oxygen saturation on room air. Will have patient follow-up with pulmonology. Knows to come back if worse.. 05/10 05:30 Order name: Basic Metabolic Panel [facility] 05/10 05:30 Order name: CBC with Diff [facility] 05/10 05:30 Order name: LFT's [facility] 05/10 05:30 Order name: Magnesium [facility] 05/10 05:30 Order name: NT PRO-BNP [facility] 05/10 05:30 Order name: PT-INR; Complete Time: 06:59 [facility] 05/10 05:30 Order name: Troponin (emerg Dept Use Only); Complete Time: 06:59 [facility] 05/10 05:30 Order name: Lipase; Complete Time: 06:59 [facility] 05/10 05:30 Order name: COVID-19 : Document "Date of Symptom Onset" if Symptomatic. [facility] 05/10 05:30 Order name: D-Dimer; Complete Time: 06:59 [facility] 05/10 05:31 Order name: Basic Metabolic Panel; Complete Time: 06:59 EDMS 05/10 05:31 Order name: CBC with Automated Diff; Complete Time: 07:23 EDMS 05/10 05:31 Order name: Liver (Hepatic) Function; Complete Time: 06:59 EDMS 05/10 05:31 Order name: Magnesium; Complete Time: 06:59 EDMS 05/10 05:30 Order name: XRAY Chest (1 view); Complete Time: 08:14 [facility] 05/10 05:30 Order name: EKG; Complete Time: 05:31 [facility] 05/10 05:30 Order name: Cardiac monitoring [facility] 05/10 05:30 Order name: EKG - Nurse/Tech [facility] 05/10 05:30 Order name: IV Saline Lock [facility] 05/10 05:30 Order name: Labs collected and sent [facility] 05/10 05:30 Order name: O2 Per Protocol [facility] 05/10 05:30 Order name: O2 Sat Monitoring [facility] 05/10 05:30 Order name: Urine Dipstick-Ancillary (obtain specimen) [facility] 05/10 05:31 Order name: NT PRO-BNP; Complete Time: 06:59 EDMS 05/10 07:07 Order name: Manual Differential; Complete Time: 07:23 EDMS 05/10 07:25 Order name: CT Chest For PE Angio; Complete Time: 08:14 [facility] EC:31 Rate is 67 beats/min. Rhythm is regular. QRS [place] is Normal. [place] interval is normal. QRS dominick interval is normal. QT interval is normal. No Q waves. T waves are Normal. No ST changes noted. Clinical impression: NSR w/ Non-specific ST/T Changes and No evidence of ischemia. Interpreted by me. Reviewed by me. Administered Medications: 08:18 CANCELLED (Physician Discretion): NS 0.9% 1000 ml IV at 125 ml/hr continuous jr8 Disposition: 05/11 07:19 Co-signature as Attending Physician, Jose Angel Brown MD I agree with the assessment and dominick plan of care. Disposition Summary: 05/10/21 08:17 Discharge Ordered Location: Home jr8 Problem: new jr8 Symptoms: have improved jr8 Condition: Stable jr8 Diagnosis - Dyspnea jr8 Followup: jr8 - With: Joselo Link MD - When: 2 - 3 days - Reason: Recheck today's complaints, Continuance of care, Re-evaluation by your physician Followup: jr8 - With: Kishore Bateman MD - When: 2 - 3 days - Reason: Recheck today's complaints, Continuance of care, Re-evaluation by your physician Discharge Instructions: - Discharge Summary Sheet jr8 - Shortness of Breath, Adult jr8 Forms: - Medication Reconciliation Form jr8 - Thank You Letter jr8 - Antibiotic Education jr8 - Prescription Opioid Use jr8 Signatures: Dispatcher [employer] EDMS Jose Angel Brown MD MD cha Ballard, Brenda, RN RN Timur Richardson PA PA jr8 Corrections: (The following items were deleted from the chart) 05/10 08:18 05:30 NS 0.9% 1000 ml IV at 125 ml/hr continuous ordered. dominick jr8
--- NOTE | 2021-05-10 08:18 | ER ---
Nurse's Notes [facility] Name: Carmel Rodriguez Age: 60 yrs Sex: Female : 1960 Arrival Date: 05/10/2021 Time: 00:57 Bed 15 Private MD: Diagnosis: Dyspnea Presentation: 05/10 02:25 Chief complaint: communicated with pt via language line #[id number]. bb 02:41 Chief complaint: Patient states: she has been feeling short of breath, anxious, ears bb ringing with red spots on her skin for approx 4 weeks. Coronavirus screen: shortness of breath, Client presents with at least one sign or symptom that may indicate coronavirus-19. Standard/surgical mask placed on the client. Ebola Screen: No symptoms or risks identified at this time. Initial Sepsis Screen: Does the patient meet any 2 criteria? No. Patient's initial sepsis screen is negative. Does the patient have a suspected source of infection? No. Patient's initial sepsis screen is negative. Risk Assessment: Do you want to hurt yourself or someone else? Patient reports no desire to harm self or others. Onset of symptoms is unknown. 02:41 Method Of Arrival: EMS bb 02:41 Acuity: CHRISTINE 3 bb Triage Assessment: 02:57 General: Appears in no apparent distress. obese, Behavior is calm, cooperative. Pain: bb Complains of pain in chest. Neuro: Level of Consciousness is awake, alert, obeys commands, Oriented to person, place, time, situation. Cardiovascular: Capillary refill < 3 seconds Patient's skin is warm and dry. Respiratory: Reports shortness of breath Onset: The symptoms/episode began/occurred at an unknown time. the patient has mild shortness of breath. GI: No deficits noted. Derm: Skin is pink, warm \T\ dry. Musculoskeletal: Circulation, motion, and sensation intact. Historical: - Allergies: 02:57 ACETAMINOPHEN; bb 02:57 CALCIUM CARBONATE; bb 02:57 EXCEDRIN; bb 02:57 Excedrin PM; bb 02:57 Ibuprofen; bb 02:57 NSAIDS; bb - PMHx: 02:57 Anxiety; Depression; Hypertension; bb - Immunization history:: Adult Immunizations up to date, Client reports receiving the 2nd dose of the Covid vaccine. - Social history:: Smoking status: Patient denies any tobacco usage or history of. Screenin:53 Abuse screen: Denies threats or abuse. Nutritional screening: No deficits noted. tw2 Tuberculosis screening: No symptoms or risk factors identified. Fall Risk None identified. Assessment: 06:05 Reassessment: No changes from previously documented assessment. Patient is alert, bb oriented x 3, equal unlabored respirations, skin warm/dry/pink. see triage assessment. 08:48 Reassessment: Patient appears in no apparent distress at this time. Patient and/or tw2 family updated on plan of care and expected duration. Pain level reassessed. Patient is alert, oriented x 3, equal unlabored respirations, skin warm/dry/pink. 08:48 General: Appears in no apparent distress. obese, Behavior is calm, cooperative, tw2 appropriate for age. Pain: Denies pain. Neuro: Level of Consciousness is awake, alert, obeys commands, Oriented to person, place, time, situation. Cardiovascular: Rhythm is regular. Respiratory: Airway is patent Respiratory effort is even, unlabored, Respiratory pattern is regular, symmetrical. GI: No signs and/or symptoms were reported involving the gastrointestinal system. : No signs and/or symptoms were reported regarding the genitourinary system. Musculoskeletal: Range of motion: intact in all extremities. Vital Signs: 02:41 BP 153 / 73; Pulse 72; Resp 18 A; Temp 98.4(O); Pulse Ox 98% on R/A; Weight 115.21 kg bb (R); Height 5 ft. 5 in. (165.10 cm); 06:05 BP 151 / 74; Pulse 70; Resp 18 S; Pulse Ox 98% on R/A; bb 08:48 BP 153 / 70; Pulse 71; Resp 18; Pulse Ox 97% on R/A; tw2 02:41 Body Mass Index 42.27 (115.21 kg, 165.10 cm) ED Course: 00:57 Patient arrived in ED. bp1 02:44 Triage completed. bb 02:57 Arm band placed on Patient placed in waiting room, Patient notified of wait time. bb 05:28 Jose Angel Brown MD is Attending Physician. [facility] 06:00 Initial lab(s) drawn, by pr, sent to lab. EKG done, by ED staff, reviewed by Jose Angel Brown MD. Inserted saline lock: 20 gauge in left antecubital area, using aseptic technique. Blood collected. 06:56 XRAY Chest (1 view) In Process Unspecified. EDMS 07:51 Timur Campbell PA is PHCP. jr8 07:53 Bed in low position. Call light in reach. Pulse ox on. NIBP on. tw2 08:00 CT Chest For PE Angio In Process Unspecified. EDMS 08:17 Joselo Link MD is Referral Physician. jr8 08:35 Kishore Bateman MD is Referral Physician. jr8 08:48 Nataly Pang, RN is Primary Nurse. tw2 08:48 No provider procedures requiring assistance completed. IV discontinued, intact, tw2 bleeding controlled, No redness/swelling at site. Pressure dressing applied. Administered Medications: 08:18 CANCELLED (Physician Discretion): NS 0.9% 1000 ml IV at 125 ml/hr continuous jr8 Outcome: 08:17 Discharge ordered by MD. jr8 08:48 Discharged to home ambulatory. tw2 08:48 Condition: stable 08:48 Discharge instructions given to patient, Instructed on discharge instructions, follow up and referral plans. Demonstrated understanding of instructions, follow-up care. 08:49 Patient left the ED. tw2 Signatures: Dispatcher [employer] EDUT Jose Angel Brown MD MD cha Ballard, Brenda, RN RN Timur Richardson PA PA jr8 Nataly Pang, RN RN tw2 Lana Ruth
[2021-05-10 09:05] VITALS: BP 153/70; O2SAT 97
[2021-05-10 09:10] VITALS: TEMP 98.4
--- NOTE | 2021-05-10 16:25 | EKG ---
Test Date: 2021-05-10 Test Time: 05:50:07 [employer]oter: YOAV MEASUREMENT RESULTS: Intervals: Rate: 67 AR: 154 QRSD: 80 QT: 386 QTc: 407 Dewy Rose: P: -1 AR: 154 QRS: 9 T: 49 INTERPRETIVE STATEMENTS: Normal sinus rhythm Nonspecific T wave abnormality Abnormal ECG Compared to ECG 09/29/2019 22:26:12 T-wave abnormality now present Electronically Signed On 05-10-21 16:22:53 CDT by Kishore Bateman
== END 2021-05-10 08:49 | disposition home or self-care (01) ==
LOC: ER 00:51
DX: R06.00 Dyspnea, unspecified (principal); I10 Essential (primary) hypertension; Z88.6 Allergy status to analgesic agent; Z88.8 Allergy status to other drugs, medicaments and biological substances
CPT/HCPCS: 36415; 71045; 71275; 80048; 80076; 83690; 83735; 83880; 84484; 85025; 85379; 85610; 93005; 99284; Q9967

== ENCOUNTER 2021-07-15 06:39 | Emergency (ER) | payer OTHER, SELFPAY ==
[2021-07-15 07:03] LABS: Absolute Lymphocytes (CBC) 1.8 K/uL (0.7-4.9); Basophils % 0.6 % (0-1.3); Lymphocytes % 20.6 % (15.3-44.8); MPV 6.8 fL (7.6-11.3); RBC Red Blood Cell Count 4.47 M/uL (3.86-4.86)
[2021-07-15] MEDS ORDERED: NA CHLORIDE 0.9% 1,000 ML ONE (07:12)
[2021-07-15 07:14] LABS: Albumin 3.8 g/dL (3.4-5.0); Bilirubin Direct 0.1 mg/dL (0-0.2); Bilirubin Total 0.6 mg/dL (0.2-1.0); Potassium 3.8 mmol/L (3.5-5.1); Protein, Total 8.4 g/dL (6.4-8.2)
--- NOTE | 2021-07-15 07:19 | RAD REPORT ---
[facility] 6:55 am CLINICAL HISTORY: FLANK PAIN COMPARISON: <Comparisons> TECHNIQUE: CT of the abdomen and pelvis was performed. All CT scans are performed using dose optimization technique as appropriate and may include automated exposure control or mA/KV adjustment according to patient size. FINDINGS: Lower chest: No acute abnormality. Liver: No acute abnormality or suspicious lesions. Biliary: No biliary ductal dilatation. Cholelithiasis noted. Stomach: No significant focal abnormality. Duodenum: No significant focal abnormality. Pancreas: No significant abnormality. Spleen: No significant abnormality. Adrenal: No suspicious lesions. Kidney/ureter: No hydronephrosis. No renal calculi. Retroperitoneum: No retroperitoneal adenopathy. Vascular: No aneurysm. Bowel: No significant focal abnormality. Diverticulosis without diverticulitis. Normal appendix. Peritoneum: No ascites or free air. Bladder: Grossly unremarkable. Reproductive: No adnexal masses. Bones: No acute fracture. Grade 1 anterolisthesis of L4 on L5. Remote rib fractures. Other: n/a IMPRESSION: No acute intra-abdominal or pelvic finding. No urinary tract calculi.
[2021-07-15] MEDS ORDERED: CYCLOBENZAPRINE 10 MG TAB ONE (08:07)
[2021-07-15] MEDS ORDERED: KETOROLAC 30 MG/ML INJ ONE (08:07)
[2021-07-15 08:21] LABS: Urine Blood Trace-intact (Negative); Urine Glucose Negative (Negative); Urine Protein Negative (Negative); Urine Specific Gravity 1.015 (1.005-1.030)
[2021-07-15] MEDS ORDERED: LIDOCAINE 4% PATCH ONE (08:24)
[2021-07-15 09:12] LABS: Urine Bacteria 20-50 /HPF (<20); Urine RBC <5 /HPF (NONE SEEN)
--- NOTE | 2021-07-15 09:18 | ER ---
Nurse's Notes [facility] Name: Carmel Rodriguez Age: 61 yrs Sex: Female : 1960 Arrival Date: 07/15/2021 Time: 06:41 Bed 6 Private MD: Diagnosis: Low back pain;UTI/ Urinary tract infection, site not specified Presentation: 07/15 06:43 Chief complaint: Patient states: Left flank/back pain radiates to left leg. Coronavirus df1 screen: Vaccine status: Patient reports being unvaccinated. Client denies travel out of the [place] in the last 14 days. At this time, the client does not indicate any symptoms associated with coronavirus-19. The client reports previous COVID testing was negative. Ebola Screen: Patient negative for fever greater than or equal to 101.5 degrees Fahrenheit, and additional compatible Ebola Virus Disease symptoms Patient denies exposure to infectious person. Patient denies travel to an Ebola-affected area in the 21 days before illness onset. Initial Sepsis Screen: Does the patient meet any 2 criteria? No. Patient's initial sepsis screen is negative. Does the patient have a suspected source of infection? No. Patient's initial sepsis screen is negative. Risk Assessment: Do you want to hurt yourself or someone else? Patient reports no desire to harm self or others. Onset of symptoms was July 15, 2021 at 06:00. 06:43 Method Of Arrival: EMS: [facility] df1 06:43 Acuity: CHRISTINE 3 df1 Triage Assessment: 06:59 General: Appears distressed, comfortable, Behavior is calm, cooperative. Pain: df1 Complains of pain in back and left leg. Historical: - Allergies: 06:46 ACETAMINOPHEN; df1 06:46 CALCIUM CARBONATE; df1 06:46 EXCEDRIN; df1 06:46 Excedrin PM; df1 06:46 Ibuprofen; df1 06:46 NSAIDS; df1 11:52 Toradol; ll1 - Home Meds: 06:46 pantoprazole 40 mg oral TbEC 1 tab once daily [Active]; Vitamin D2 50,000 unit oral cap df1 53205 unit weekly [Active]; mirtazapine 30 mg Oral tab 1 tab once daily [Active]; hydralazine 50 mg Oral tab 1 tab 2 times per day [Active]; losartan 100 mg oral tab 1 tab once daily [Active]; metoprolol tartrate 50 mg Oral tab 1 tab 2 times per day [Active]; buspirone 10 mg Oral tab 3 tabs 2 times per day [Active]; hydroxyzine HCl 50 mg Oral tab 1 tab daily [Active]; - PMHx: 06:46 Anxiety; Depression; Hypertension; df1 - PSHx: 06:46 section; df1 - Immunization history:: Adult Immunizations not up to date, Client reports having NOT received the Covid vaccine. - Social history:: Smoking status: Patient reports the use of cigarette tobacco products. Screenin:58 Abuse screen: Denies threats or abuse. Nutritional screening: No deficits noted. df1 Tuberculosis screening: No symptoms or risk factors identified. Fall Risk None identified. Assessment: 08:00 Reassessment: No changes from previously documented assessment. Patient and/or family ll1 updated on plan of care and expected duration. Pain level reassessed. Patient is alert, oriented x 3, equal unlabored respirations, skin warm/dry/pink. 09:00 Reassessment: No changes from previously documented assessment. Patient and/or family ll1 updated on plan of care and expected duration. Pain level reassessed. Patient is alert, oriented x 3, equal unlabored respirations, skin warm/dry/pink. 10:00 Reassessment: No changes from previously documented assessment. Patient and/or family ll1 updated on plan of care and expected duration. Pain level reassessed. Patient is alert, oriented x 3, equal unlabored respirations, skin warm/dry/pink. Patient states feeling better. 11:00 Reassessment: No changes from previously documented assessment. Patient and/or family ll1 updated on plan of care and expected duration. Pain level reassessed. Patient is alert, oriented x 3, equal unlabored respirations, skin warm/dry/pink. Patient states feeling better. Patient states symptoms have improved. 11:51 Reassessment: No changes from previously documented assessment. Patient and/or family ll1 updated on plan of care and expected duration. Pain level reassessed. Patient is alert, oriented x 3, equal unlabored respirations, skin warm/dry/pink. Vital Signs: 06:43 BP 204 / 92; Pulse 95; Resp 18; Temp 98.5; Pulse Ox 98% on R/A; Weight 116.57 kg; df1 Height 5 ft. 5 in. (165.10 cm); Pain 10/10; 07:07 BP 187 / 76; Pulse 92; Resp 17; Pulse Ox 97% on R/A; ll1 08:01 BP 171 / 90; ll1 08:36 BP 157 / 81; Pulse 92; Resp 17; Pulse Ox 100% ; ll1 09:47 BP 189 / 67; Pulse 109; Resp 18; Pulse Ox 96% on R/A; ll1 10:33 BP 164 / 68; Pulse 98; Resp 17; Pulse Ox 98% ; ll1 11:53 BP 165 / 83; Pulse 94; Resp 17; Pulse Ox 98% ; Pain 5/10; ll1 06:43 Body Mass Index 42.77 (116.57 kg, 165.10 cm) df1 ED Course: 06:41 Patient arrived in ED. eb 06:42 Jose Angel Russell PA is PHCP. cp 06:42 Eleuterio Laboy MD is Attending Physician. cp 06:43 Meseret Smith is Primary Nurse. df1 06:45 Basic Metabolic Panel Sent. sj1 06:45 CBC with Diff Sent. sj1 06:45 Hepatic Function Sent. sj1 06:45 Lipase Sent. sj1 06:46 Triage completed. df1 06:50 CT Stone Protocol Sent. sj1 06:55 CT Stone Protocol In Process Unspecified. EDMS 06:59 Arm band placed on right wrist. df1 07:00 No provider procedures requiring assistance completed. df1 07:00 Inserted saline lock: 20 gauge in right hand, using aseptic technique. df1 07:01 Patient has correct armband on for positive identification. Bed in low position. Call df1 light in reach. Side rails up X 1. 07:09 Florian Monroe, RN is Primary Nurse. ll1 07:50 Given verbal order for Flexeril 10 mg PO and Toradol 15 mg IVP. After giving the ll1 medication, Emily Russell stated she was allergic to NSAIDs. 09:20 Notified Nurse Practitioner and/or Physician [employer] of swelling noted to R eye lid. [email or web address] Emily Russell informed. Instructed to leave the Lidoderm patch in place. 11:51 IV discontinued, intact, bleeding controlled, No redness/swelling at site. Pressure ll1 dressing applied. Administered Medications: 07:07 Drug: NS 0.9% 500 ml Route: IV; Rate: bolus; Site: right hand; ll1 08:10 Follow up: Response: No adverse reaction; IV Status: Completed infusion; IV Intake: ll1 500ml 07:51 Drug: Flexeril (cyclobenzaprine) 10 mg Route: PO; ll1 08:28 Follow up: Response: No adverse reaction ll1 08:11 Drug: NS 0.9% 500 ml Route: IV; Rate: 125 ml/hr; Site: right hand; ll1 10:30 Follow up: Response: No adverse reaction; IV Status: Completed infusion; IV Intake: ll1 250ml 08:20 Drug: Lidoderm Patch 5 % (700 mg/patch) 1 patches {Note: mid low back.} Route: Topical; 1 Site: affected area; 08:37 Follow up: Response: No adverse reaction ll1 09:33 Drug: Pepcid (famotidine) 20 mg Route: IVP; Site: right hand; ll1 10:32 Follow up: Response: No adverse reaction ll1 09:34 Drug: SOLU-Medrol (methylPrednisoLONE) 125 mg Route: IVP; Site: right hand; ll1 10:32 Follow up: Response: No adverse reaction ll1 10:32 Drug: Rocephin (cefTRIAXone) 1 grams Route: IV; Rate: calculated rate; Site: right hand;ll1 11:36 Follow up: Response: No adverse reaction; IV Status: Completed infusion; IV Intake: [id number] Intake: 08:10 IV: 500ml; Total: 500ml. ll1 10:30 IV: 250ml; Total: 750ml. ll1 11:36 IV: 50ml; Total: 800ml. ll1 Outcome: 09:18 Discharge ordered by MD. cp 11:12 Discharge ordered by MD. cp 11:51 Discharged to home ambulatory. ll1 11:51 Condition: stable 11:51 Discharge instructions given to patient, Instructed on discharge instructions, follow up and referral plans. medication usage, Demonstrated understanding of instructions, follow-up care, medications, Prescriptions given X 4. 11:52 Patient left the ED. ll1 Signatures: Dispatcher [employer] EDMS Jose Angel Russell PA PA cp Botello, Elizabeth eb Lewis, Lynsay, RN RN ll1 Meseret Smith df1 Mehreen Hurd, RN RN sj1
--- NOTE | 2021-07-15 09:19 | EDPHYS ---
Physician Documentation [facility] Name: Carmel Rodriguez Age: 61 yrs Sex: Female : 1960 Arrival Date: 07/15/2021 Time: 06:41 Bed 6 Private MD: ED Physician Eleuterio Laboy HPI: 07/15 06:44 This 61 yrs old Female presents to ER via Unassigned with complaints of Left cp Flank Pain. 06:45 The patient complains of pain in the left flank. The pain radiates to the abdomen and cp left leg. 06:45 Onset: The symptoms/episode began/occurred this morning. Modifying factors: the cp symptoms are aggravated by movement, palpation/percussion. Associated signs and symptoms: Pertinent positives: pain radiating to left lower extremity, Pertinent negatives: diarrhea, dizziness, fever, headache, vomiting. Severity of pain: in the emergency department the pain is unchanged despite EMS interventions. Historical: - Allergies: 06:46 ACETAMINOPHEN; df1 06:46 CALCIUM CARBONATE; df1 06:46 EXCEDRIN; df1 06:46 Excedrin PM; df1 06:46 Ibuprofen; df1 06:46 NSAIDS; df1 11:52 Toradol; ll1 - Home Meds: 06:46 pantoprazole 40 mg oral TbEC 1 tab once daily [Active]; Vitamin D2 50,000 unit oral cap df1 01429 unit weekly [Active]; mirtazapine 30 mg Oral tab 1 tab once daily [Active]; hydralazine 50 mg Oral tab 1 tab 2 times per day [Active]; losartan 100 mg oral tab 1 tab once daily [Active]; metoprolol tartrate 50 mg Oral tab 1 tab 2 times per day [Active]; buspirone 10 mg Oral tab 3 tabs 2 times per day [Active]; hydroxyzine HCl 50 mg Oral tab 1 tab daily [Active]; - PMHx: 06:46 Anxiety; Depression; Hypertension; df1 - PSHx: 06:46 section; df1 - Immunization history:: Adult Immunizations not up to date, Client reports having NOT received the Covid vaccine. - Social history:: Smoking status: Patient reports the use of cigarette tobacco products. ROS: 06:50 Back: Positive for flank pain, on the left. cp 06:50 Constitutional: Negative for body aches, chills, fever, poor PO intake. cp 06:50 Eyes: Negative for injury, pain, redness, and discharge. cp 06:50 Neck: Negative for pain with movement, pain at rest, stiffness. 06:50 Cardiovascular: Negative for chest pain, palpitations. 06:50 Respiratory: Negative for cough, shortness of breath, wheezing. 06:50 Abdomen/GI: Positive for abdominal pain, Negative for vomiting, diarrhea, constipation, black/tarry stool, rectal bleeding. 06:50 Skin: Negative for cellulitis, rash. 06:50 Neuro: Negative for dizziness, headache, weakness. 06:50 All other systems are negative. Exam: 06:55 Constitutional: The patient appears in no acute distress, alert, awake, cp non-diaphoretic, non-toxic, well developed, well nourished, obese. 06:55 Head/Face: Normocephalic, atraumatic. cp 06:55 Eyes: Periorbital structures: appear normal, Conjunctiva: normal, no exudate, no injection, Sclera: no appreciated abnormality, Lids and lashes: appear normal, bilaterally. 06:55 ENT: External ear(s): are unremarkable, Nose: is normal, Mouth: Lips: moist, Oral mucosa: moist, Posterior pharynx: Airway: no evidence of obstruction, patent. 06:55 Neck: ROM/movement: is normal, is supple, without pain, no range of motions limitations. 06:55 Chest/axilla: Inspection: normal. 06:55 Cardiovascular: Rate: normal, Rhythm: regular, Edema: is not appreciated, JVD: is not appreciated. 06:55 Respiratory: the patient does not display signs of respiratory distress, Respirations: normal, no use of accessory muscles, no retractions, labored breathing, is not present, Breath sounds: are clear throughout, no decreased breath sounds, no stridor, no wheezing. 06:55 Abdomen/GI: Inspection: obese Palpation: abdomen is soft and non-tender, in all quadrants. 06:55 Back: pain, that is moderate, of the left mid back, ROM is painful, with all movement. 06:55 Skin: no rash present. cp 06:55 Neuro: Orientation: to person, place \T\ time. Mentation: is normal, Motor: moves all cp fours, strength is normal, Sensation: is normal, Gait: is steady. Vital Signs: 06:43 BP 204 / 92; Pulse 95; Resp 18; Temp 98.5; Pulse Ox 98% on R/A; Weight 116.57 kg; df1 Height 5 ft. 5 in. (165.10 cm); Pain 10/10; 07:07 BP 187 / 76; Pulse 92; Resp 17; Pulse Ox 97% on R/A; ll1 08:01 BP 171 / 90; ll1 08:36 BP 157 / 81; Pulse 92; Resp 17; Pulse Ox 100% ; ll1 09:47 BP 189 / 67; Pulse 109; Resp 18; Pulse Ox 96% on R/A; ll1 10:33 BP 164 / 68; Pulse 98; Resp 17; Pulse Ox 98% ; ll1 11:53 BP 165 / 83; Pulse 94; Resp 17; Pulse Ox 98% ; Pain 5/10; ll1 06:43 Body Mass Index 42.77 (116.57 kg, 165.10 cm) df1 MDM: 06:44 Patient medically screened. cp 07:00 Differential diagnosis: nephrolithiasis, pyelonephritis, UTI, diverticulitis. cp 11:10 Data reviewed: vital signs, nurses notes, lab test result(s), radiologic studies, CT cp scan. 11:10 Counseling: I had a detailed discussion with the patient and/or guardian regarding: the cp historical points, exam findings, and any diagnostic results supporting the discharge/admit diagnosis, lab results, radiology results, the need for outpatient follow up, a family practitioner, to return to the emergency department if symptoms worsen or persist or if there are any questions or concerns that arise at home. Response to treatment: the patient's symptoms have markedly improved after treatment, and as a result, I will discharge patient. 07/15 06:43 Order name: Urine Microscopic Only; Complete Time: 09:17 cp 07/15 09:17 Interpretation: Normal except: UBACT 20-50. cp 07/15 06:43 Order name: Basic Metabolic Panel; Complete Time: 07:17 cp 07/15 07:17 Interpretation: Normal except: NA 129; CL 94; GLUC 115; BUN 6; GFR 84. cp 07/15 06:43 Order name: CBC with Diff; Complete Time: 07:49 cp 07/15 07:49 Interpretation: Normal except: HGB 15.1; MPV 6.8. cp 07/15 06:43 Order name: Hepatic Function; Complete Time: 07:17 cp 07/15 07:18 Interpretation: Normal except: TP 8.4; GLOB 4.6; A/G 0.8. cp 07/15 06:43 Order name: Lipase; Complete Time: 07:17 cp 07/15 08:21 Order name: Urine Dipstick-Ancillary; Complete Time: 08:23 EDMS 07/15 08:23 Interpretation: Normal except: UBLD Trace-intact. cp 07/15 06:43 Order name: CT Stone Protocol; Complete Time: 07:20 cp 07/15 09:13 Order name: Urine Culture EDMS 07/15 06:43 Order name: Urine Dipstick-Ancillary (obtain specimen); Complete Time: 09:10 cp 07/15 06:43 Order name: IV Saline Lock; Complete Time: 06:45 cp 07/15 06:43 Order name: Labs collected and sent; Complete Time: 06:45 cp Administered Medications: 07:07 Drug: NS 0.9% 500 ml Route: IV; Rate: bolus; Site: right hand; ll1 08:10 Follow up: Response: No adverse reaction; IV Status: Completed infusion; IV Intake: ll1 500ml 07:51 Drug: Flexeril (cyclobenzaprine) 10 mg Route: PO; ll1 08:28 Follow up: Response: No adverse reaction ll1 08:11 Drug: NS 0.9% 500 ml Route: IV; Rate: 125 ml/hr; Site: right hand; ll1 10:30 Follow up: Response: No adverse reaction; IV Status: Completed infusion; IV Intake: ll1 250ml 08:20 Drug: Lidoderm Patch 5 % (700 mg/patch) 1 patches {Note: mid low back.} Route: Topical; ll1 Site: affected area; 08:37 Follow up: Response: No adverse reaction ll1 09:33 Drug: Pepcid (famotidine) 20 mg Route: IVP; Site: right hand; ll1 10:32 Follow up: Response: No adverse reaction ll1 09:34 Drug: SOLU-Medrol (methylPrednisoLONE) 125 mg Route: IVP; Site: right hand; ll1 10:32 Follow up: Response: No adverse reaction ll1 10:32 Drug: Rocephin (cefTRIAXone) 1 grams Route: IV; Rate: calculated rate; Site: right hand;ll1 11:36 Follow up: Response: No adverse reaction; IV Status: Completed infusion; IV Intake: [id number] Disposition: 11:30 Chart complete. cp 21:00 Co-signature as Attending Physician, Eleuterio Laboy MD. 7 Disposition Summary: 07/15/21 11:12 Discharge Ordered Location: Home(07/15/21 11:12) cp Problem: new(07/15/21 11:12) cp Symptoms: have improved(07/15/21 11:12) cp Condition: Stable(07/15/21 11:12) cp Diagnosis - Low back pain(07/15/21 11:12) cp - UTI/ Urinary tract infection, site not specified(07/15/21 11:12) cp Followup: cp - With: Private Physician - When: 2 - 3 days - Reason: Recheck today's complaints Discharge Instructions: - Discharge Summary Sheet cp - Acute Back Pain, Adult cp - Urinary Tract Infection, Adult cp - Back Exercises cp Forms: - Medication Reconciliation Form cp - Thank You Letter cp - Antibiotic Education cp - Prescription Opioid Use cp Prescriptions: - Lidoderm 5 % Topical adhesive patch,medicated - apply 1 patch by TOPICAL route once daily As needed; 1 box; Refills: 0, Product cp Selection Permitted - Zofran 4 mg Oral Tablet - take 1 tablet by ORAL route every 12 hours As needed; 20 tablet; Refills: 0, cp Product Selection Permitted - Cyclobenzaprine 10 mg Oral Tablet - take 1 tablet by ORAL route every 8 hours As needed; 20 tablet; Refills: 0, cp Product Selection Permitted - Bactrim DS 800-160 mg Oral Tablet - take 1 tablet by ORAL route every 12 hours for 7 days; 14 tablet; Refills: 0, cp Product Selection Permitted Signatures: Dispatcher [employer] EDMS Jose Angel Russell PA PA cp Florian Monroe RN RN 1 Eeluterio Laboy MD MD 7 Meseret Smith df1 Corrections: (The following items were deleted from the chart) 09:23 09:18 Home cp cp 09:23 09:18 new cp cp 09:23 09:18 have improved cp cp 09:23 09:18 Stable cp cp 09:23 09:18 Low back pain - right cp cp 09:18 UTI/ Urinary tract infection, site not specified cp cp
[2021-07-15] MEDS ORDERED: NA CHLORIDE 0.9% 50 ML ONE (09:45)
[2021-07-15] MEDS ORDERED: CEFTRIAXONE 1000 MG/VIAL ONE (09:45)
[2021-07-15] MEDS ORDERED: FAMOTIDINE 20 MG/2 ML VIAL IV ONE (09:48)
[2021-07-15] MEDS ORDERED: METHYLPREDNISOLONE 125 MG INJ ONE (09:48)
[2021-07-15 11:56] VITALS: TEMP 98.5
[2021-07-15 12:04] VITALS: BP 164/68; O2SAT 98
== END 2021-07-15 11:52 | disposition home or self-care (01) ==
LOC: ER 06:39
DX: N39.0 Urinary tract infection, site not specified (principal); I10 Essential (primary) hypertension; F41.8 Other specified anxiety disorders; Z72.0 Tobacco use; Z88.5 Allergy status to narcotic agent; Z88.6 Allergy status to analgesic agent; Z88.8 Allergy status to other drugs, medicaments and biological substances
CPT/HCPCS: 96365; 96361; 87088; 85025; 87086; 80048; 36415; 80076; 83690; 76377; 74176; 96375; 99284; J7030; J2930; 81003; 81015

== ENCOUNTER 2021-08-26 17:19 | Emergency (ER) | payer OTHER ==
--- OUTSIDE RECORDS SUMMARY | 2021-08-26 17:24 | XMS REPORT | Continuity of Care Document ---
:1960 Author Organization [facility] t Address [address] [place] [address] Dr. Hopkins. [address] [place] [address] Care Team Providers Name Role Phone Mamta ROMAN, B Attending Clinician Akinsipe WHCNP, C Attending Clinician AKINSIPE, C Attending Clinician Unavailable Sean STATION SUPERINTENDENT, G Attending Clinician Doctor Unassigned, Name Attending Clinician Unavailable Garcia HIRSCH Attending Clinician Unavailable Mayela PAC, S Attending Clinician Visit, Nurse Attending Clinician Unavailable Ananda PIANO REGULATOR INSPECTOR, R Attending Clinician Johnathan COLUNGA Attending Clinician Unavailable JOANA Admitting Clinician Unavailable Payers Payer Name Policy Type Policy Number Effective Date Expiration Date Darcie griffith MEDICARE PART A [id number] 2020 \\T\\ B 00:00:00 Advance Directives Directive Decision Effective Termination Comments Source Date Date Healthcare Agents on N/A [facility] ersity FileNameRelationshipHealthcare [facility] [place] [facility] Agent Medical RelationshipCommunication[facility] Care [phone] (Mobile) Problems Condition Condition Condition Status Onset Resolution Last Treating Co mments Source Name Details Category Date Date Treatment Clinician Date Anal wart Anal wart Disease Active 2019-09 Uni vers 2-04 ity of 00:00: [place] 00 [facility] Vaginal Vaginal Disease Active 2019- Univers yeast yeast 8-21 ity of infection infection 00:00: Arturo fitzgerald [facility] Vaginal Vaginal Disease Active 2019- Univers itching itching 8-21 ity of 00:00: [place] [facility] Urinary Urinary Disease Active Univers urgency urgency 8- ity of 00:00: [place] [facility] Screen for Screen for Disease Active U nivers STD STD 4-24 [place] of (sexually ([place]ually [place] transmit[place] transmit[place] 00 [place] dical d disease) d disease) Br anch Vaginal Vaginal Disease Active Univers discomfort discomfort 4-24 it y of 00:00: [place] [facility] Contracept Contracept Disease Active U nivers roz roz 3-14 ity of management management 00:[place] [facility] Well woman Well woman Disease Active U nivers exam exam 3-14 ity of 00:00: [place] [facility] Contracept Contracept Disease Active U nivers roz roz 3-14 ity of management management 00[place]: [place] [facility] Menopause Menopause Disease Active Uni vers 6-25 ity of 00:00: [place] [facility] Morbid Morbid Disease Active Univers obesity obesity 6-25 ity of 00:00: [place] [facility] Essential Essential Disease Active Uni vers hypertensi hypertensi 6-25 it y of on, benign on, benign 00:00: [place] [facility] Generalize Generalize Disease Active U nivers d anxiety d anxiety 6-25 ity of disorder disorder 00:00: [place] [facility] Depression Depression Disease Active U nivers 6-25 ity of 00:00: [place] [facility] Allergies, Adverse Reactions, Alerts Allergy Allergy Status Severity Reaction(s) Onset Inactive Treating Comm ents Source Name Type Date Date Clinician Hydrochl Propensi Active Unknown - Severe Uni vers orothiaz ty to See comments 12-25 hyponatre ity of isabel adverse 00:00: el [place] reaction 00 Medical s [place] HYDROCHL DRUG Active Unknown-Cmnt Un rohit OROTHIAZ INGREDI 4 ity of ISABEL 00:00: [place] 00 [facility] Aspirin- Propensi Active Swelling Univ ers Acetamin ty to 04-28 ity of ophen-Ca adverse 00:00: [place] ffeine reaction Medical [facility] Ibuprofe Propensi Active Swelling Univ ers n ty to 04-28 ity of adverse 00:00: [place] reaction 00 Medical s Branch ASPIRIN- DRUG Active Swelling [facility] s ACETAMIN 04-28 ity of OPHEN-CA 00:00: [place] FFEINE [facility] IBUPROFE DRUG Active Swelling [facility] s N INGREDI 04-28 ity of 00:00: [address] Social History Social Habit Start Date Stop Date Quantity Comments Source Exposure to Not sure [facility] SARS-CoV-2 [facility] (event) [place] Tobacco use and 2020-09-07 2020-09-07 Never used Universit y of exposure 00:00:00 00:00:00 [facility] Alcohol intake 2020-09-07 2020-09-07 Current drinker of Un iversity of 00:00:00 00:00:00 alcohol (finding) [facility] edical [place] Alcohol Comment 2015-03-14 2015-03-14 occasionally Univers ity of 00:00:00 00:00:00 [facility] Sex Ass[birth year] At [birth year] Universit y of 00:00:00 00:00:00 [facility] Smoking Status Start Date Stop Date Source Never smoker [facility] Medications Ordered Filled Start Stop Current Ordering Indication Dosage Frequency Signature Comments Components Source Medication Medication Date Date Medication? Clinician (SIG) Name Name iopamidol 2020- No [id number] 120mL 120 mL, Univers (ISOVUE 05-15 Intravenou ity o f 300-500 mL) 07:05: 07:05 s, ONCE, 1 [place] injection 00 :00 dose, Mon Medic al 120 mL 05/15/21 at Branch 0215, Routine cloNIDine 2020- No .1mg 0.1 mg, Univ ers (CATAPRES) 05-15 Oral, ity of tablet 0.1 05:30: 05:46 ONCE, 1 [place] mg 00 :00 dose, [facility] Medical 05/15/21 at Branch 0030, STAT morpHINE 2020- No 4mg 4 mg, Slow Un rohit injection 4 05-15 IV Push, ity of mg 03:45: 03:17 ONCE, 1 [place] 00 :00 dose, [facility] 05/14/21 at Branch 2245, STAT hydrALAZINE 2020-1 2020- No 50mg 50 mg, Uni vers (APRESOLINE 17 09-07 Oral, ity of ) tablet 50 00:00: 22:56 ONCE[place] 1 [place] mg 00 :[place] dose, Sat09/07/20 Branch at 1800, Routine LORazepam 2019-09 2020- No 1mg 1 mg, Univer s (ATIVAN) 11-09 Oral, ity of tablet 1 mg 00:00: 22:56 [place]CE, 1 [place] 00 :[place] dose, Sat09/07/20 Branch at 1800, LIN cloNIDine 2019-09 2020- No .1mg 0.1 mg, Univ ers (CATAPRES) 2 1205 Oral, ity of tablet 0.1 01:45: 01:08 ONCE, 1 [place] mg 00 :00 dose, Sat08/26/20 at Branch 1945, STAT PAROXETINE 2019-09 Yes 1 daily Univ ers HCL 20 MG 2-04 ity of ORAL TAB 22:23: [place] [facility] metoprolol 2019-09 Yes 50mg Take 50 mg U nivers tartrate 2-04 by mouth 2 ity o f (LOPRESSOR) 22:23: (two) [place] 50 mg 39 times Medical tablet daily. Branch hydrOXYzine 2019-09 Yes 25mg Take 25 mg Univers (ATARAX) 25 2-04 by mouth ity of mg tablet 22:23: every 6 [place] 39 (six) Medical hours. Branch hydralAZINE 2019-09 Yes 50mg Take 50 mg Univers 50 mg 2-04 by mouth 2 ity of tablet 22:23: (two) [place] 39 times Medical daily. Branch mirtazapine 2019-09 Yes 30mg Take 30 mg Univers 30 mg 2-04 by mouth ity of tablet 22:23: at [place] 39 bedtime. Medical Branch busPIRone 2019-09 Yes 10mg Take 10 mg Un rohit 10 mg 2-04 by mouth 2 ity of tablet 22:23: (two) [place] 39 times Medical daily. Branch PAROXETINE 2019-09 Yes 1 daily Univ ers HCL 20 MG 2-04 ity of ORAL TAB 22:23: [place] 39 Medical Branch metoprolol 2019-09 Yes 50mg Take 50 mg U nivers tartrate 2-04 by mouth 2 ity o f (LOPRESSOR) 22:23: (two) [place] 50 mg 39 times Medical tablet daily. Branch hydrOXYzine 2019- Yes 25mg Take 25 mg Univers (ATARAX) 25 2-04 by mouth ity of mg tablet 22:23: every 6 [place] 39 (six) Medical hours. Branch hydralAZINE 2019-09 Yes 50mg Take 50 mg Univers 50 mg 2-04 by mouth 2 ity of tablet 22:23: (two) [place] 39 times Medical daily. Branch mirtazapine 2019- Yes 30mg Take 30 mg Univers 30 mg 2-04 by mouth ity of tablet 22:23: at [place] 39 bedtime. Medical Branch busPIRone 2019- Yes 10mg Take 10 mg Un rohit 10 mg 2-04 by mouth 2 ity of tablet 22:23: (two) [place] 39 times Medical daily. Branch PAROXETINE 2019- Yes 1 daily Univ ers HCL 20 MG 2-04 ity of ORAL TAB 22:23: [place] 39 Medical Branch metoprolol 2019- Yes 50mg Take 50 mg U nivers tartrate 2-04 by mouth 2 ity o f (LOPRESSOR) 22:23: (two) [place] 50 mg 39 times Medical tablet daily. Branch hydrOXYzine 2019-09 Yes 25mg Take 25 mg Univers (ATARAX) 25 2-04 by mouth ity of mg tablet 22:23: every 6 [place] 39 (six) Medical hours. Branch hydralAZINE 2019-09 Yes 50mg Take 50 mg Univers 50 mg 2-04 by mouth 2 ity of tablet 22:23: (two) [place] 39 times Medical daily. Branch mirtazapine 2019-09 Yes 30mg Take 30 mg Univers 30 mg 2-04 by mouth ity of tablet 22:23: at [place] 39 bedtime. Medical Branch busPIRone 2019- Yes 10mg Take 10 mg Un rohit 10 mg 2-04 by mouth 2 ity of tablet 22:23: (two) [place] 39 times Medical daily. Branch PAROXETINE 2019- Yes 1 daily Univ ers HCL 20 MG 2-04 ity of ORAL TAB 22:23: [place] 39 Medical Branch metoprolol 2019- Yes 50mg Take 50 mg U nivers tartrate 2-04 by mouth 2 ity o f (LOPRESSOR) 22:23: (two) [place] 50 mg 39 times Medical tablet daily. Branch hydrOXYzine 2019- Yes 25mg Take 25 mg Univers (ATARAX) 25 2-04 by mouth ity of mg tablet 22:23: every 6 [place] 39 (six) Medical hours. Branch hydralAZINE 2019- Yes 50mg Take 50 mg Univers 50 mg 2-04 by mouth 2 ity of tablet 22:23: (two) [place] 39 times Medical daily. Branch mirtazapine 2019- Yes 30mg Take 30 mg Univers 30 mg 2-04 by mouth ity of tablet 22:23: at [place] 39 bedtime. Medical Branch busPIRone 2019- Yes 10mg Take 10 mg Un rohit 10 mg 2-04 by mouth 2 ity of tablet 22:23: (two) [place] 39 times Medical daily. Branch PAROXETINE 2019- Yes 1 daily Univ ers HCL 20 MG 2-04 ity of ORAL TAB 22:23: [place] 39 Medical Branch metoprolol 2019- Yes 50mg Take 50 mg U nivers tartrate 2-04 by mouth 2 ity o f (LOPRESSOR) 22:23: (two) [place] 50 mg 39 times Medical tablet daily. Branch hydrOXYzine 2019- Yes 25mg Take 25 mg Univers (ATARAX) 25 2-04 by mouth ity of mg tablet 22:23: every 6 [place] 39 (six) Medical hours. Branch hydralAZINE 2019- Yes 50mg Take 50 mg Univers 50 mg 2-04 by mouth 2 ity of tablet 22:23: (two) [place] 39 times Medical daily. Branch mirtazapine 2019-09 Yes 30mg Take 30 mg Univers 30 mg 2-04 by mouth ity of tablet 22:23: at [place] [address] bedtime. Medical Branch busPIRone 2019- Yes 10mg Take 10 mg Un rohit 10 mg 2-04 by mouth 2 ity of tablet 22:23: (two) [place] 39 times Medical daily. Branch PAROXETINE 2019- Yes 1 daily Univ ers HCL 20 MG 2-04 ity of ORAL TAB 22:23: [place] 39 Medical Branch metoprolol 2019- Yes 50mg Take 50 mg U nivers tartrate 2-04 by mouth 2 ity o f (LOPRESSOR) 22:23: (two) [place] 50 mg 39 times Medical tablet daily. Branch hydrOXYzine 2019- Yes 25mg Take 25 mg Univers (ATARAX) 25 2-04 by mouth ity of mg tablet 22:23: every 6 [place] 39 (six) Medical hours. Branch hydralAZINE 2019- Yes 50mg Take 50 mg Univers 50 mg 2-04 by mouth 2 ity of tablet 22:23: (two) [place] 39 times Medical daily. Branch mirtazapine 2019-09 Yes 30mg Take 30 mg Univers 30 mg 2-04 by mouth ity of tablet 22:23: at [place] [address] bedtime. Medical Branch busPIRone 2019- Yes 10mg Take 10 mg Un rohit 10 mg 2-04 by mouth 2 ity of tablet 22:23: (two) [place] 39 times Medical daily. Branch PAROXETINE 2020- Yes 1 daily Univ ers HCL 20 MG 2-04 ity of ORAL TAB 22:23: [place] 39 Medical Branch metoprolol 2019- Yes 50mg Take 50 mg U nivers tartrate 2-04 by mouth 2 ity o f (LOPRESSOR) 22:23: (two) [place] 50 mg 39 times Medical tablet daily. Branch hydrOXYzine 2019- Yes 25mg Take 25 mg Univers (ATARAX) 25 2-04 by mouth ity of mg tablet 22:23: every 6 [place] [address] (six) Medical hours. Branch hydralAZINE 2019-09 Yes 50mg Take 50 mg Univers 50 mg 2-04 by mouth 2 ity of tablet 22:23: (two) [place] 39 times Medical daily. Branch mirtazapine 2019-09 Yes 30mg Take 30 mg Univers 30 mg 2-04 by mouth ity of tablet 22:23: at [place] [address] bedtime. Medical Branch busPIRone 2019- Yes 10mg Take 10 mg Un rohit 10 mg 2-04 by mouth 2 ity of tablet 22:23: (two) [place] 39 times Medical daily. Branch PAROXETINE 2019- Yes 1 daily Univ ers HCL 20 MG 2-04 ity of ORAL TAB 22:23: [place] 39 Medical Branch metoprolol 2019- Yes 50mg Take 50 mg U nivers tartrate 2-04 by mouth 2 ity o f (LOPRESSOR) 22:23: (two) [place] 50 mg 39 times Medical tablet daily. Branch hydrOXYzine 2019- Yes 25mg Take 25 mg Univers (ATARAX) 25 2-04 by mouth ity of mg tablet 22:23: every 6 [place] [address] (six) Medical hours. Branch hydralAZINE 2019-09 Yes 50mg Take 50 mg Univers 50 mg 2-04 by mouth 2 ity of tablet 22:23: (two) [place] 39 times Medical daily. Branch mirtazapine 2019-09 Yes 30mg Take 30 mg Univers 30 mg 2-04 by mouth ity of tablet 22:23: at [place] [address] bedtime. Medical Branch busPIRone 2019- Yes 10mg Take 10 mg Un rohit 10 mg 2-04 by mouth 2 ity of tablet 22:23: (two) [place] 39 times Medical daily. Branch PAROXETINE 2019- Yes 1 daily Univ ers HCL 20 MG 2-04 ity of ORAL TAB 22:23: [place] 39 Medical Branch metoprolol 2019-09 Yes 50mg Take 50 mg U nivers tartrate 2-04 by mouth 2 ity o f (LOPRESSOR) 22:23: (two) [place] 50 mg 39 times Medical tablet daily. Branch hydrOXYzine 2019-09 Yes 25mg Take 25 mg Univers (ATARAX) 25 2-04 by mouth ity of mg tablet 22:23: every 6 [place] [address] (six) Medical hours. Branch hydralAZINE 2019-09 Yes 50mg Take 50 mg Univers 50 mg 2-04 by mouth 2 ity of tablet 22:23: (two) [place] 39 times Medical daily. Branch mirtazapine 2019-09 Yes 30mg Take 30 mg Univers 30 mg 2-04 by mouth ity of tablet 22:23: at [place] [address] bedtime. Medical Branch busPIRone 2019-09 Yes 10mg Take 10 mg Un rohit 10 mg 2-04 by mouth 2 ity of tablet 22:23: (two) [place] 39 times Medical daily. Branch PAROXETINE 2019- Yes 1 daily Univ ers HCL 20 MG 2-04 ity of ORAL TAB 22:23: [place] 39 Medical Branch metoprolol 2019-09 Yes 50mg Take 50 mg U nivers tartrate 2-04 by mouth 2 ity o f (LOPRESSOR) 22:23: (two) [place] 50 mg 39 times Medical tablet daily. Branch hydrOXYzine 2019-09 Yes 25mg Take 25 mg Univers (ATARAX) 25 2-04 by mouth ity of mg tablet 22:23: every 6 [place] [address] (six) Medical hours. Branch hydralAZINE 2019-09 Yes 50mg Take 50 mg Univers 50 mg 2-04 by mouth 2 ity of tablet 22:23: (two) [place] 39 times Medical daily. Branch mirtazapine 2019- Yes 30mg Take 30 mg Univers 30 mg 2-04 by mouth ity of tablet 22:23: at [place] [address] bedtime. Medical Branch busPIRone 2020- Yes 10mg Take 10 mg Un rohit 10 mg 2-04 by mouth 2 ity of tablet 22:23: (two) [place] 39 times Medical daily. Branch PAROXETINE 2020- Yes 1 daily Univ ers HCL 20 MG 2-04 ity of ORAL TAB 22:23: [place] 39 Medical Branch metoprolol 2019- Yes 50mg Take 50 mg U nivers tartrate 2-04 by mouth 2 ity o f (LOPRESSOR) 22:23: (two) [place] 50 mg 39 times Medical tablet daily. Branch hydrOXYzine 2019- Yes 25mg Take 25 mg Univers (ATARAX) 25 2-04 by mouth ity of mg tablet 22:23: every 6 [place] 39 (six) Medical hours. Branch hydralAZINE 2019- Yes 50mg Take 50 mg Univers 50 mg 2-04 by mouth 2 ity of tablet 22:23: (two) [place] 39 times Medical daily. Branch mirtazapine 2019- Yes 30mg Take 30 mg Univers 30 mg 2-04 by mouth ity of tablet 22:23: at [place] [address] bedtime. Medical Branch busPIRone 2019- Yes 10mg Take 10 mg Un rohit 10 mg 2-04 by mouth 2 ity of tablet 22:23: (two) [place] 39 times Medical daily. Branch PAROXETINE 2019- Yes 1 daily Univ ers HCL 20 MG 2-04 ity of ORAL TAB 22:23: [place] 39 Medical Branch metoprolol 2019- Yes 50mg Take 50 mg U nivers tartrate 2-04 by mouth 2 ity o f (LOPRESSOR) 22:23: (two) [place] 50 mg 39 times Medical tablet daily. Branch hydrOXYzine 2019- Yes 25mg Take 25 mg Univers (ATARAX) 25 2-04 by mouth ity of mg tablet 22:23: every 6 [place] 39 (six) Medical hours. Branch hydralAZINE 2019- Yes 50mg Take 50 mg Univers 50 mg 2-04 by mouth 2 ity of tablet 22:23: (two) [place] 39 times Medical daily. Branch mirtazapine 2019- Yes 30mg Take 30 mg Univers 30 mg 2-04 by mouth ity of tablet 22:23: at [place] 39 bedtime. Medical Branch busPIRone 2019- Yes 10mg Take 10 mg Un rohit 10 mg 2-04 by mouth 2 ity of tablet 22:23: (two) [place] 39 times Medical daily. Branch PAROXETINE 2019- Yes 1 daily Univ ers HCL 20 MG 2-04 ity of ORAL TAB 22:23: [place] 39 Medical Branch metoprolol 2019- Yes 50mg Take 50 mg U nivers tartrate 2-04 by mouth 2 ity o f (LOPRESSOR) 22:23: (two) [place] 50 mg 39 times Medical tablet daily. Branch hydrOXYzine 2019-09 Yes 25mg Take 25 mg Univers (ATARAX) 25 2-04 by mouth ity of mg tablet 22:23: every 6 [place] 39 (six) Medical hours. Branch hydralAZINE 2019-09 Yes 50mg Take 50 mg Univers 50 mg 2-04 by mouth 2 ity of tablet 22:23: (two) [place] 39 times Medical daily. Branch mirtazapine 2019-09 Yes 30mg Take 30 mg Univers 30 mg 2-04 by mouth ity of tablet 22:23: at [place] [address] bedtime. Medical Branch busPIRone 2019-09 Yes 10mg Take 10 mg Un rohit 10 mg 2-04 by mouth 2 ity of tablet 22:23: (two) [place] 39 times Medical daily. Branch PAROXETINE 2019- Yes 1 daily Univ ers HCL 20 MG 2-04 ity of ORAL TAB 22:23: [place] 39 Medical Branch metoprolol 2019-09 Yes 50mg Take 50 mg U nivers tartrate 2-04 by mouth 2 ity o f (LOPRESSOR) 22:23: (two) [place] 50 mg 39 times Medical tablet daily. Branch hydrOXYzine 2019-09 Yes 25mg Take 25 mg Univers (ATARAX) 25 2-04 by mouth ity of mg tablet 22:23: every 6 [place] 39 (six) Medical hours. Branch hydralAZINE 2019- Yes 50mg Take 50 mg Univers 50 mg 2-04 by mouth 2 ity of tablet 22:23: (two) [place] 39 times Medical daily. Branch mirtazapine 2019-09 Yes 30mg Take 30 mg Univers 30 mg 2-04 by mouth ity of tablet 22:23: at [place] 39 bedtime. Medical Branch busPIRone 2019- Yes 10mg Take 10 mg Un rohit 10 mg 2-04 by mouth 2 ity of tablet 22:23: (two) [place] 39 times Medical daily. Branch PAROXETINE 2020- Yes 1 daily Univ ers HCL 20 MG 2-04 ity of ORAL TAB 22:23: [place] 39 Medical Branch metoprolol 2019- Yes 50mg Take 50 mg U nivers tartrate 2-04 by mouth 2 ity o f (LOPRESSOR) 22:23: (two) [place] 50 mg 39 times Medical tablet daily. Branch hydrOXYzine 2019-09 Yes 25mg Take 25 mg Univers (ATARAX) 25 2-04 by mouth ity of mg tablet 22:23: every 6 [place] [address] (six) Medical hours. Branch hydralAZINE 2019-09 Yes 50mg Take 50 mg Univers 50 mg 2-04 by mouth 2 ity of tablet 22:23: (two) [place] 39 times Medical daily. Branch mirtazapine 2019-09 Yes 30mg Take 30 mg Univers 30 mg 2-04 by mouth ity of tablet 22:23: at [place] [address] bedtime. Medical Branch busPIRone 2019-09 Yes 10mg Take 10 mg Un rohit 10 mg 2-04 by mouth 2 ity of tablet 22:23: (two) [place] 39 times Medical daily. Branch PAROXETINE 2019- Yes 1 daily Univ ers HCL 20 MG 2-04 ity of ORAL TAB 22:23: [place] 39 Medical Branch metoprolol 2019-09 Yes 50mg Take 50 mg U nivers tartrate 2-04 by mouth 2 ity o f (LOPRESSOR) 22:23: (two) [place] 50 mg 39 times Medical tablet daily. Branch hydrOXYzine 2019- Yes 25mg Take 25 mg Univers (ATARAX) 25 2-04 by mouth ity of mg tablet 22:23: every 6 [place] [address] (six) Medical hours. Branch hydralAZINE 2019- Yes 50mg Take 50 mg Univers 50 mg 2-04 by mouth 2 ity of tablet 22:23: (two) [place] 39 times Medical daily. Branch mirtazapine 2019- Yes 30mg Take 30 mg Univers 30 mg 2-04 by mouth ity of tablet 22:23: at [place] [address] bedtime. Medical Branch busPIRone 2019- Yes 10mg Take 10 mg Un rohit 10 mg 2-04 by mouth 2 ity of tablet 22:23: (two) [place] 39 times Medical daily. [place] clotrimazol 2019-09 Yes [id number] 1{appli Insert 1 Univers e 1 % 2-04 cator} Applicator ity of vaginal 00:00: into [place] cream 00 vagina at Medical bedtime. [place] clotrimazol 2019-09 Yes [id number] 1{appli Insert 1 Univers e 1 % 2-04 cator} Applicator ity of vaginal 00:00: into [place] cream 00 vagina at Medical bedtime. [place] clotrimazol 2019-09 Yes [id number] 1{appli Insert 1 Univers e 1 % 2-04 cator} Applicator ity of vaginal 00:00: into [place] cream 00 vagina at Medical bedtime. [place] clotrimazol 2019-09 Yes [id number] 1{appli Insert 1 Univers e 1 % 2-04 cator} Applicator ity of vaginal 00:00: into [place] cream 00 vagina at Medical bedtime. [place] clotrimazol 2019-09 Yes [id number] 1{appli Insert 1 Univers e 1 % 2-04 cator} Applicator ity of vaginal 00:00: into [place] cream 00 vagina at Medical bedtime. [place] clotrimazol 2019-09 Yes [id number] 1{appli Insert 1 Univers e 1 % 2-04 cator} Applicator ity of vaginal 00:00: into [place] cream 00 vagina at Medical bedtime. [place] clotrimazol 2019-09 Yes [id number] 1{appli Insert 1 Univers e 1 % 2-04 cator} Applicator ity of vaginal 00:00: into [place] cream 00 vagina at Medical bedtime. [place] clotrimazol 2019-09 Yes [id number] 1{appli Insert 1 Univers e 1 % 2-04 cator} Applicator ity of vaginal 00:00: into [place] cream 00 vagina at Medical bedtime. [place] clotrimazol 2019-09 Yes [id number] 1{appli Insert 1 Univers e 1 % 2-04 cator} Applicator ity of vaginal 00:00: into [place] cream 00 vagina at Medical bedtime. [place] clotrimazol 2019-09 Yes [id number] 1{appli Insert 1 Univers e 1 % 2-04 cator} Applicator ity of vaginal 00:00: into [place] cream 00 vagina at Medical bedtime. [place] clotrimazol 2019-09 Yes [id number] 1{appli Insert 1 Univers e 1 % 2-04 cator} Applicator ity of vaginal 00:00: into [place] cream 00 vagina at Medical bedtime. Branch clotrimazol 2019-09 Yes [id number] 1{appli Insert 1 Univers e 1 % 2-04 cator} Applicator ity of vaginal 00:00: into [place] cream 00 vagina at Medical bedtime. Branch clotrimazol 2019-09 Yes [id number] 1{appli Insert 1 Univers e 1 % 2-04 cator} Applicator ity of vaginal 00:00: into [place] cream 00 vagina at Medical bedtime. Branch clotrimazol 2019-09 Yes [id number] 1{appli Insert 1 Univers e 1 % 2-04 cator} Applicator ity of vaginal 00:00: into [place] cream 00 vagina at Medical bedtime. [place] clotrimazol 2019-09 Yes [id number] 1{appli Insert 1 Univers e 1 % 2-04 cator} Applicator ity of vaginal 00:00: into [place] cream 00 vagina at Medical bedtime. Branch Miscellaneo 2019-0 Yes [id number] QHS X U nivers [facility] 8-21 7days ity of Supply Misc 00:00: [place] 00 Medical Branch Miscellaneo 2019-0 Yes [id number] QHS X U nivers [facility] 8-21 7days ity of Supply Misc 00:00: [place] 00 Medical Branch Miscellaneo 2019-0 Yes [id number] QHS X U nivers Medical 8-21 7days ity of Supply Misc 00:00: [place] 00 Medical Branch Miscellaneo 2019-0 Yes [id number] QHS X U nivers Medical 8-21 7days ity of Supply Misc 00:00: [place] 00 Medical Branch Miscellaneo 2019-0 Yes [id number] QHS X U nivers Medical 8-21 7days ity of Supply Misc 00:00: [place] 00 Medical Branch Miscellaneo 2019-0 Yes [id number] QHS X U nivers [facility] 8-21 7days ity of Supply Misc 00:00: [place] 00 Medical Branch Miscellaneo 2019-0 Yes [id number] QHS X U nivers [facility] 8-21 7days ity of Supply Misc 00:00: [place] 00 Medical Branch Miscellaneo 2019-0 Yes [id number] QHS X U nivers us Medical 8-21 7days ity of Supply Misc 00:00: [place] 00 Medical Branch Miscellaneo 2019-0 Yes [id number] QHS X U nivers us Medical 8-21 7days ity of Supply Misc 00:00: [place] 00 Medical Branch Miscellaneo 2019-0 Yes [id number] QHS X U nivers us Medical 8-21 7days ity of Supply Misc 00:00: [place] 00 Medical Branch Miscellaneo 2019-0 Yes [id number] QHS X U nivers us Medical 8-21 7days ity of Supply Misc 00:00: [place] 00 Medical Branch Miscellaneo 2019-0 Yes [id number] QHS X U nivers us Medical 8-21 7days ity of Supply Misc 00:00: [place] 00 Medical Branch Miscellaneo 2019-0 Yes [id number] QHS X U nivers us Medical 8-21 7days ity of Supply Misc 00:00: [place] 00 Medical Branch Miscellaneo 2019-0 Yes [id number] QHS X U nivers us Medical 8-21 7days ity of Supply Misc 00:00: [place] 00 Medical Branch Miscellaneo 2019-0 Yes [id number] QHS X U nivers us Medical 8-21 7days ity of Supply Misc 00:00: [place] 00 Medical Branch Miscellaneo 2019-0 Yes [id number] QHS X U nivers us Medical 8-21 7days ity of Supply Misc 00:00: [place] 00 Medical Branch Miscellaneo 2019-0 Yes [id number] QHS X U nivers us Medical 8-21 7days ity of Supply Misc 00:00: [place] 00 Medical Branch Miscellaneo 2019-0 Yes [id number] QHS X U nivers us Medical 8-21 7days ity of Supply Misc 00:00: [place] 00 Medical Branch Miscellaneo 2019-0 Yes [id number] QHS X U nivers us Medical 8-21 7days ity of Supply Misc 00:00: [place] 00 Medical Branch Miscellaneo 2019-0 Yes [id number] QHS X U nivers us Medical 8-21 7days ity of Supply Misc 00:00: [place] 00 Medical Branch Miscellaneo 2019-0 Yes [id number] QHS X U nivers us Medical 8-21 7days ity of Supply Misc 00:00: [place] 00 Medical Branch Miscellaneo 2019-0 Yes [id number] QHS X U nivers us Medical 8-21 7days ity of Supply Misc 00:00: [place] 00 Medical Branch Miscellaneo 2019-0 Yes [id number] QHS X U nivers us Medical 8-21 7days ity of Supply Misc 00:00: [place] 00 Medical Branch busPIRone 2019-0 Yes 10mg Take 10 mg Un rohit 10 mg 3-14 by mouth 2 ity of tablet 21:09: (two) [place] 48 times Medical daily. Branch busPIRone 2018-0 Yes 10mg Take 10 mg Un rohit 10 mg 3-14 by mouth 2 ity of tablet 21:09: (two) [place] 48 times Medical daily. Branch busPIRone 2018-0 Yes 10mg Take 10 mg Un rohit 10 mg 3-14 by mouth 2 ity of tablet 21:09: (two) [place] 48 times Medical daily. Branch busPIRone 2018-0 Yes 10mg Take 10 mg Un rohit 10 mg 3-14 by mouth 2 ity of tablet 21:09: (two) [place] 48 times Medical daily. Branch busPIRone 2018-0 Yes 10mg Take 10 mg Un rohit 10 mg 3-14 by mouth 2 ity of tablet 21:09: (two) [place] 48 times Medical daily. Branch busPIRone 2019-0 Yes 10mg Take 10 mg Un rohit 10 mg 3-14 by mouth 2 ity of tablet 21:09: (two) [place] 48 times Medical daily. Branch busPIRone 2018-0 Yes 10mg Take 10 mg Un rohit 10 mg 3-14 by mouth 2 ity of tablet 21:09: (two) [place] 48 times Medical daily. Branch busPIRone 2018-0 Yes 10mg Take 10 mg Un rohit 10 mg 3-14 by mouth 2 ity of tablet 21:09: (two) [place] 48 times Medical daily. Branch PAROXETINE 2019-0 Yes 1 daily Univ ers HCL 20 MG 3-14 ity of ORAL TAB 21:09: [place] [address] Medical Branch metoprolol 2019-0 Yes 50mg Take 50 mg U nivers tartrate 3-14 by mouth 2 ity o f (LOPRESSOR) 21:09: (two) [place] 50 mg 31 times Medical tablet daily. Branch hydrOXYzine 2019-0 Yes 25mg Take 25 mg Univers (ATARAX) 25 3-14 by mouth ity of mg tablet 21:09: every 6 [place] [address] (six) Medical hours. Branch hydralAZINE 2019-0 Yes 50mg Take 50 mg Univers 50 mg 3-14 by mouth 2 ity of tablet 21:09: (two) [place] 31 times Medical daily. Branch mirtazapine 2019-0 Yes 30mg Take 30 mg Univers 30 mg 3-14 by mouth ity of tablet 21:09: at [place] [address] bedtime. Medical Branch PAROXETINE 2019-0 Yes 1 daily Univ ers HCL 20 MG 3-14 ity of ORAL TAB 21:09: [place] [address] Medical Branch metoprolol 2018-0 Yes 50mg Take 50 mg U nivers tartrate 3-14 by mouth 2 ity o f (LOPRESSOR) 21:09: (two) [place] 50 mg 31 times Medical tablet daily. Branch hydrOXYzine 2019-0 Yes 25mg Take 25 mg Univers (ATARAX) 25 3-14 by mouth ity of mg tablet 21:09: every 6 [place] [address] (six) Medical hours. Branch hydralAZINE 2019-0 Yes 50mg Take 50 mg Univers 50 mg 3-14 by mouth 2 ity of tablet 21:09: (two) [place] 31 times Medical daily. Branch mirtazapine 2019-0 Yes 30mg Take 30 mg Univers 30 mg 3-14 by mouth ity of tablet 21:09: at [place] [address] bedtime. Medical Branch PAROXETINE 2019-0 Yes 1 daily Univ ers HCL 20 MG 3-14 ity of ORAL TAB 21:09: [place] [address] Medical Branch metoprolol 2019-0 Yes 50mg Take 50 mg U nivers tartrate 3-14 by mouth 2 ity o f (LOPRESSOR) 21:09: (two) [place] 50 mg 31 times Medical tablet daily. Branch hydrOXYzine 2019-0 Yes 25mg Take 25 mg Univers (ATARAX) 25 3-14 by mouth ity of mg tablet 21:09: every 6 [place] [address] (six) Medical hours. Branch hydralAZINE 2019-0 Yes 50mg Take 50 mg Univers 50 mg 3-14 by mouth 2 ity of tablet 21:09: (two) [place] 31 times Medical daily. Branch mirtazapine 2019-0 Yes 30mg Take 30 mg Univers 30 mg 3-14 by mouth ity of tablet 21:09: at [place] [address] bedtime. Medical Branch PAROXETINE 2019-0 Yes 1 daily Univ ers HCL 20 MG 3-14 ity of ORAL TAB 21:09: [place] [address] Medical Branch metoprolol 2019-0 Yes 50mg Take 50 mg U nivers tartrate 3-14 by mouth 2 ity o f (LOPRESSOR) 21:09: (two) [place] 50 mg 31 times Medical tablet daily. Branch hydrOXYzine 2019-0 Yes 25mg Take 25 mg Univers (ATARAX) 25 3-14 by mouth ity of mg tablet 21:09: every 6 [place] [address] (six) Medical hours. Branch hydralAZINE 2019-0 Yes 50mg Take 50 mg Univers 50 mg 3-14 by mouth 2 ity of tablet 21:09: (two) [place] [address] times Medical daily. Branch mirtazapine 2019-0 Yes 30mg Take 30 mg Univers 30 mg 3-14 by mouth ity of tablet 21:09: at [place] [address] bedtime. Medical Branch PAROXETINE 2019-0 Yes 1 daily Univ ers HCL 20 MG 3-14 ity of ORAL TAB 21:09: [place] [address] Medical Branch metoprolol 2019-0 Yes 50mg Take 50 mg U nivers tartrate 3-14 by mouth 2 ity o f (LOPRESSOR) 21:09: (two) [place] 50 mg 31 times Medical tablet daily. Branch hydrOXYzine 2019-0 Yes 25mg Take 25 mg Univers (ATARAX) 25 3-14 by mouth ity of mg tablet 21:09: every 6 [place] [address] (six) Medical hours. Branch hydralAZINE 2019-0 Yes 50mg Take 50 mg Univers 50 mg 3-14 by mouth 2 ity of tablet 21:09: (two) [place] 31 times Medical daily. Branch mirtazapine 2019-0 Yes 30mg Take 30 mg Univers 30 mg 3-14 by mouth ity of tablet 21:09: at [place] [address] bedtime. Medical Branch PAROXETINE 2019-0 Yes 1 daily Univ ers HCL 20 MG 3-14 ity of ORAL TAB 21:09: [place] [address] Medical Branch metoprolol 2019-0 Yes 50mg Take 50 mg U nivers tartrate 3-14 by mouth 2 ity o f (LOPRESSOR) 21:09: (two) [place] 50 mg 31 times Medical tablet daily. Branch hydrOXYzine 2019-0 Yes 25mg Take 25 mg Univers (ATARAX) 25 3-14 by mouth ity of mg tablet 21:09: every 6 [place] [address] (six) Medical hours. Branch hydralAZINE 2019-0 Yes 50mg Take 50 mg Univers 50 mg 3-14 by mouth 2 ity of tablet 21:09: (two) [place] 31 times Medical daily. Branch mirtazapine 2019-0 Yes 30mg Take 30 mg Univers 30 mg 3-14 by mouth ity of tablet 21:09: at [place] [address] bedtime. Medical Branch PAROXETINE 2018-0 Yes 1 daily Univ ers HCL 20 MG 3-14 ity of ORAL TAB 21:09: [place] [address] Medical Branch metoprolol 2018-0 Yes 50mg Take 50 mg U nivers tartrate 3-14 by mouth 2 ity o f (LOPRESSOR) 21:09: (two) [place] 50 mg 31 times Medical tablet daily. Branch hydrOXYzine 2018-0 Yes 25mg Take 25 mg Univers (ATARAX) 25 3-14 by mouth ity of mg tablet 21:09: every 6 [place] [address] (six) Medical hours. Branch hydralAZINE 2018-0 Yes 50mg Take 50 mg Univers 50 mg 3-14 by mouth 2 ity of tablet 21:09: (two) [place] 31 times Medical daily. Branch mirtazapine 2019-0 Yes 30mg Take 30 mg Univers 30 mg 3-14 by mouth ity of tablet 21:09: at [place] [address] bedtime. Medical Branch PAROXETINE 2019-0 Yes 1 daily Univ ers HCL 20 MG 3-14 ity of ORAL TAB 21:09: [place] [address] Medical Branch metoprolol 2019-0 Yes 50mg Take 50 mg U nivers tartrate 3-14 by mouth 2 ity o f (LOPRESSOR) 21:09: (two) [place] 50 mg 31 times Medical tablet daily. Branch hydrOXYzine 2019-0 Yes 25mg Take 25 mg Univers (ATARAX) 25 3-14 by mouth ity of mg tablet 21:09: every 6 [place] 31 (six) Medical hours. Branch hydralAZINE 2019-0 Yes 50mg Take 50 mg Univers 50 mg 3-14 by mouth 2 ity of tablet 21:09: (two) [place] 31 times Medical daily. Branch mirtazapine 2019-0 Yes 30mg Take 30 mg Univers 30 mg 3-14 by mouth ity of tablet 21:09: at [place] [address] bedtime. Medical Branch cloniDINE 2018-0 Yes .1mg Take 1 Univer s 0.1 mg 2-22 tablet by ity of tablet 00:00: mouth at [place] 00 bedtime as Medical needed Branch (SBP>180 or DBP>120). cloniDINE 2018-0 Yes .1mg Take 1 Univer s 0.1 mg 2-22 tablet by ity of tablet 00:00: mouth at [place] 00 bedtime as Medical needed Branch (SBP>180 or DBP>120). cloniDINE 2018-0 Yes .1mg Take 1 Univer s 0.1 mg 2-22 tablet by ity of tablet 00:00: mouth at [place] 00 bedtime as Medical needed Branch (SBP>180 or DBP>120). cloniDINE 2018-0 Yes .1mg Take 1 Univer s 0.1 mg 2-22 tablet by ity of tablet 00:00: mouth at [place] 00 bedtime as Medical needed Branch (SBP>180 or DBP>120). cloniDINE 2018-0 Yes .1mg Take 1 Univer s 0.1 mg 2-22 tablet by ity of tablet 00:00: mouth at [place] 00 bedtime as Medical needed Branch (SBP>180 or DBP>120). cloniDINE 2018-0 Yes .1mg Take 1 Univer s 0.1 mg 2-22 tablet by ity of tablet 00:00: mouth at [place] 00 bedtime as Medical needed Branch (SBP>180 or DBP>120). cloniDINE 2018-0 Yes .1mg Take 1 Univer s 0.1 mg 2-22 tablet by ity of tablet 00:00: mouth at [place] 00 bedtime as Medical needed Branch (SBP>180 or DBP>120). cloniDINE 2018-0 Yes .1mg Take 1 Univer s 0.1 mg 2-22 tablet by ity of tablet 00:00: mouth at [place] 00 bedtime as Medical needed Branch (SBP>180 or DBP>120). cloniDINE 2018-0 Yes .1mg Take 1 Univer s 0.1 mg 2-22 tablet by ity of tablet 00:00: mouth at [place] 00 bedtime as Medical needed Branch (SBP>180 or DBP>120). cloniDINE 2018-0 Yes .1mg Take 1 Univer s 0.1 mg 2-22 tablet by ity of tablet 00:00: mouth at [place] 00 bedtime as Medical needed Branch (SBP>180 or DBP>120). cloniDINE 2018-0 Yes .1mg Take 1 Univer s 0.1 mg 2-22 tablet by ity of tablet 00:00: mouth at [place] 00 bedtime as Medical needed Branch (SBP>180 or DBP>120). cloniDINE 2018-0 Yes .1mg Take 1 Univer s 0.1 mg 2-22 tablet by ity of tablet 00:00: mouth at [place] 00 bedtime as Medical needed Branch (SBP>180 or DBP>120). cloniDINE 2018-0 Yes .1mg Take 1 Univer s 0.1 mg 2-22 tablet by ity of tablet 00:00: mouth at [place] 00 bedtime as Medical needed Branch (SBP>180 or DBP>120). cloniDINE 2018-0 Yes .1mg Take 1 Univer s 0.1 mg 2-22 tablet by ity of tablet 00:00: mouth at [place] 00 bedtime as Medical needed Branch (SBP>180 or DBP>120). cloniDINE 2018-0 Yes .1mg Take 1 Univer s 0.1 mg 2-22 tablet by ity of tablet 00:00: mouth at [place] 00 bedtime as Medical needed Branch (SBP>180 or DBP>120). cloniDINE 2018-0 Yes .1mg Take 1 Univer s 0.1 mg 2-22 tablet by ity of tablet 00:00: mouth at [place] 00 bedtime as Medical needed Branch (SBP>180 or DBP>120). cloniDINE 2018-0 Yes .1mg Take 1 Univer s 0.1 mg 2-22 tablet by ity of tablet 00:00: mouth at [place] 00 bedtime as Medical needed Branch (SBP>180 or DBP>120). cloniDINE 2018-0 Yes .1mg Take 1 Univer s 0.1 mg 2-22 tablet by ity of tablet 00:00: mouth at [place] 00 bedtime as Medical needed Branch (SBP>180 or DBP>120). cloniDINE 2018-0 Yes .1mg Take 1 Univer s 0.1 mg 2-22 tablet by ity of tablet 00:00: mouth at [place] 00 bedtime as Medical needed Branch (SBP>180 or DBP>120). cloniDINE 2018-0 Yes .1mg Take 1 Univer s 0.1 mg 2-22 tablet by ity of tablet 00:00: mouth at [place] 00 bedtime as Medical needed Branch (SBP>180 or DBP>120). cloniDINE 2018-0 Yes .1mg Take 1 Univer s 0.1 mg 2-22 tablet by ity of tablet 00:00: mouth at [place] 00 bedtime as Medical needed Branch (SBP>180 or DBP>120). cloniDINE 2018-0 Yes .1mg Take 1 Univer s 0.1 mg 2-22 tablet by ity of tablet 00:00: mouth at [place] 00 bedtime as Medical needed Branch (SBP>180 or DBP>120). cloniDINE 2018-0 Yes .1mg Take 1 Univer s 0.1 mg 2-22 tablet by ity of tablet 00:00: mouth at [place] 00 bedtime as Medical needed Branch (SBP>180 or DBP>120). cloniDINE 2018-0 Yes .1mg Take 1 Univer s 0.1 mg 2-22 tablet by ity of tablet 00:00: mouth at [place] 00 bedtime as Medical needed Branch (SBP>180 or DBP>120). Immunizations Ordered Filled Immunization Date Status Comments [facility] e Immunization Name Name Influenza Virus 2020-08-26 Completed Universit y of Vaccine Quad .5 mL 00:00:00 [place] [facility] IM 6+ MO Branch Influenza Virus 2020-08-26 Completed Universit y of Vaccine [facility] .5 mL 00:00:00 [place] [facility] IM 6+ MO Branch Influenza Virus 2020-08-26 Completed Universit y of Vaccine [facility] .5 mL 00:00:00 [place] [facility] IM 6+ MO Branch Influenza Virus 2020-08-26 Completed Universit y of Vaccine [facility] .5 mL 00:00:00 [place] [facility] IM 6+ MO Branch Influenza Virus 2020-08-26 Completed Universit y of Vaccine [facility] .5 mL 00:00:00 [place] [facility] IM 6+ MO Branch Influenza Virus 2020-08-26 Completed Universit y of Vaccine [facility] .5 mL 00:00:00 [place] [facility] IM 6+ MO Branch Influenza Virus 2020-08-26 Completed Universit y of Vaccine [facility] .5 mL 00:00:00 [place] [facility] IM 6+ MO Branch Influenza Virus 2020-08-26 Completed Universit y of Vaccine [place] .5 mL 00:00:00 [place] [facility] IM 6+ MO Branch Influenza Virus 2020-08-26 Completed Universit y of Vaccine [facility] .5 mL 00:00:00 [place] [facility] IM 6+ MO Branch Influenza Virus 2020-08-26 Completed Universit y of Vaccine [place] .5 mL 00:00:00 [place] [facility] IM 6+ MO Branch Influenza Virus 2020-08-26 Completed Universit y of Vaccine [facility] .5 mL 00:00:00 [place] [facility] IM 6+ MO Branch Influenza Virus 2020-08-26 Completed Universit y of Vaccine [place] .5 mL 00:00:00 [place] [facility] IM 6+ MO Branch Influenza Virus 2020-08-26 Completed Universit y of Vaccine [place] .5 mL 00:00:00 [place] [facility] IM 6+ MO Branch Influenza Virus 2020-08-26 Completed Universit y of Vaccine [place] .5 mL 00:00:00 [place] [facility] IM 6+ MO Branch Influenza Virus 2020-08-26 Completed Universit y of Vaccine [place] .5 mL 00:00:00 [place] [facility] IM 6+ MO Branch Influenza Virus 2020-08-26 Completed Universit y of Vaccine [place] .5 mL 00:00:00 [place] [facility] IM 6+ MO Branch Vital Signs Vital Name Observation Time Observation Value Comments Source Systolic blood 2021-05-15 08:20:00 144 mm[Hg] Univer sity of pressure [facility] Diastolic blood 2021-05-15 08:20:00 71 mm[Hg] Unive rsity of pressure [facility] Heart rate 2021-05-15 08:20:00 61 /min Universi ty of [facility] Body temperature 2021-05-15 08:20:00 36.89 Mariia Univ ersity of [facility] Respiratory rate 2021-05-15 08:20:00 16 /min Univ ersity of [facility] Oxygen saturation in 2021-05-15 08:20:00 99 /min [facility] Arterial blood by [facility] Pulse oximetry Branch Systolic blood 2020-09-08 01:35:00 148 mm[Hg] Univer sity of pressure [facility] Diastolic blood 2020-09-08 01:35:00 75 mm[Hg] Unive rsity of pressure [facility] Heart rate 2020-09-08 01:35:00 81 /min Universi ty of [place] [facility] Respiratory rate 2020-09-08 01:35:00 18 /min Univ ersity of [place] [facility] Oxygen saturation in 2020-09-08 01:35:00 97 /min University of Arterial blood by [facility] Pulse oximetry Branch Body temperature 2020-09-07 22:17:00 36.67 Mariia Univ ersity of [place] [facility] Body weight 2020-09-07 22:17:00 117.935 kg Universi ty of [place] [facility] BMI 2020-09-07 22:17:00 43.27 kg/m2 Universi ty of [place] [facility] Systolic blood 2020-09-08 01:35:00 148 mm[Hg] Univer sity of pressure [place] [facility] Diastolic blood 2020-09-08 01:35:00 75 mm[Hg] Unive rsity of pressure [place] [facility] Heart rate 2020-09-08 01:35:00 81 /min Universi ty of [place] [facility] Respiratory rate 2020-09-08 01:35:00 18 /min Univ ersity of [place] [facility] Oxygen saturation in 2020-09-08 01:35:00 97 /min University of Arterial blood by [facility] Pulse oximetry Branch Body temperature 2020-09-07 22:17:00 36.67 Mariia Univ ersity of [place] [facility] Body weight 2020-09-07 22:17:00 117.935 kg Universi ty of [place] [facility] BMI 2020-09-07 22:17:00 43.27 kg/m2 Universi ty of [place] [facility] Systolic blood 2020-09-07 22:01:00 197 mm[Hg] Univer sity of pressure [place] [facility] Diastolic blood 2020-09-07 22:01:00 94 mm[Hg] Unive rsity of pressure [place] [facility] Heart rate 2020-09-07 22:01:00 89 /min Universi ty of [place] [facility] Body temperature 2020-09-07 20:44:00 36.33 Mariia Univ ersity of [place] [facility] Respiratory rate 2020-09-07 20:44:00 16 /min Univ ersity of [place] [facility] Body height 2020-09-07 20:44:00 165.1 cm Universi ty of [place] [facility] Body weight 2020-09-07 20:44:00 118.207 kg Universi ty of [place] [facility] BMI 2020-09-07 20:44:00 43.37 kg/m2 Universi ty of [place] [facility] Systolic blood 2020-09-07 22:01:00 197 mm[Hg] Univer sity of pressure [place] [facility] Diastolic blood 2020-09-07 22:01:00 94 mm[Hg] Unive rsity of pressure [place] [facility] Heart rate 2020-09-07 22:01:00 89 /min Universi ty of [place] [facility] Body temperature 2020-09-07 20:44:00 36.33 Mariia Univ ersity of [facility] Respiratory rate 2020-09-07 20:44:00 16 /min Univ ersity of [place] [facility] Body height 2020-09-07 20:44:00 165.1 cm Universi ty of [place] [facility] Body weight 2020-09-07 20:44:00 118.207 kg Universi ty of [facility] BMI 2020-09-07 20:44:00 43.37 kg/m2 Universi ty of [facility] Systolic blood 2020-08-27 02:06:53 149 mm[Hg] Univer sity of pressure [facility] Branch Diastolic blood 2020-08-27 02:06:53 79 mm[Hg] Unive rsity of pressure [place] [facility] Heart rate 2020-08-27 02:06:53 67 /min Universi ty of [place] [facility] Body temperature 2020-08-27 02:06:53 36.5 Mariia Univ ersity of [facility] Respiratory rate 2020-08-27 02:06:53 15 /min Univ ersity of [facility] Oxygen saturation in 2020-08-27 02:06:53 98 /min University of Arterial blood by [facility] Pulse oximetry Branch Body weight 2020-08-26 23:36:00 116.574 kg Universi ty of [place] [facility] BMI 2020-08-26 23:36:00 42.77 kg/m2 Universi ty of [facility] Systolic blood 2020-08-26 22:10:00 177 mm[Hg] Univer sity of pressure [facility] Branch Diastolic blood 2020-08-26 22:10:00 88 mm[Hg] Unive rsity of pressure [place] [facility] Heart rate 2020-08-26 22:08:00 72 /min Universi ty of [facility] Body temperature 2020-08-26 22:08:00 36.39 Mariia Univ ersity of [facility] Respiratory rate 2020-08-26 22:08:00 16 /min [facility] Body height 2020-08-26 22:08:00 165.1 cm Universi ty of [facility] Body weight 2020-08-26 22:08:00 116.745 kg Universi ty [facility] BMI 2020-08-26 22:08:00 42.83 kg/m2 Universi ty [facility] Systolic blood 2019-05-13 21:11:00 142 mm[Hg] Univer sity of pressure [facility] Diastolic blood 2019-05-13 21:11:00 78 mm[Hg] [facility] Systolic blood 2019-05-13 20:20:00 173 mm[Hg] Univer sity of pressure [facility] Diastolic blood 2019-05-13 20:20:00 88 mm[Hg] Unive [facility] Heart rate 2019-05-13 20:15:00 75 /min Universi [facility] Body temperature 2019-05-13 20:15:00 36.28 Mariia [facility] Body height 2019-05-13 20:15:00 165.1 cm Universi ty [facility] Body weight 2019-05-13 20:15:00 116.234 kg Universi [facility] BMI 2019-05-13 20:15:00 42.64 kg/m2 [facility] Procedures Procedure Date / Time Performing Clinician Source Performed CT ABDOMEN PELVIS W 2021-05-15 07:09:39 Suresh Oleary [facility] COVID-19 (ID NOW RAPID 2021-05-15 03:17:00 [facility] Medical Branch PHOSPHORUS 2021-05-15 03:16:00 Suresh Oleary [facility] LIPASE 2021-05-15 03:16:00 Suresh Oleary [facility] MAGNESIUM 2021-05-15 03:16:00 Suresh Oleary [facility] TROPONIN I 2021-05-15 03:16:00 Suresh Oleary [facility] COMP. METABOLIC PANEL 2021-05-15 03:16:00 Suresh Oleary [facility] ([id number]) [facility] CBC WITH DIFF 2021-05-15 03:16:00 Suresh Oleary [facility] D-DIMER 2021-05-15 03:16:00 Mamta [facility] URINALYSIS 2021-05-15 03:16:00 Mamta [facility] N-TERMINAL PRO-BNP 2021-05-15 03:16:00 Suresh Oleary [facility] XR CHEST 2 VW 2021-05-15 02:55:22 Mamta Suresh [place] [facility] CONSENT/REFUSAL FOR 2021-05-15 02:26:49 Doctor Unadavid, [facility] DIAGNOSIS AND TREATMENT [facility] [place] CONSENT/REFUSAL FOR 2020-09-07 22:14:49 Doctor Unadavid, [facility] DIAGNOSIS AND TREATMENT [facility] [place] ASSIGNMENT OF BENEFITS 2020-09-07 20:23:20 Doctor Cornelius, [facility] Name [facility] [place] XR CHEST 1 VW 2020-08-27 00:41:33 Carmenza Mckinley [facility] TROPONIN I 2020-08-27 00:34:00 Carmenza Mckinley [facility] COMP. METABOLIC PANEL 2020-08-27 00:34:00 Carmenza Mckinley [facility] ([id number]) [facility] CBC WITH DIFF 2020-08-27 00:34:00 Carmenza Mckinley [facility] PROTHROMBIN TIME / INR 2020-08-27 00:34:00 Carmenza Mckinley [facility] ACTIVATED PARTIAL THRMPLAS 2020-08-27 00:34:00 [facility] 2020-08-27 00:34:00 Carmenza Mckinley [facility] NOTICE OF PRIVACY 2020-08-26 23:26:21 Doctor Cornelius, [facility] PRACTICES [facility] CONSENT/REFUSAL FOR 2020-08-26 23:25:28 Doctor Cornelius [facility] DIAGNOSIS AND TREATMENT [facility] [place] URINE CULTURE 2020-08-26 22:59:00 Key Richardson [facility] FLU VACC ([id number]), 6+ 2020-08-26 22:48:43 Key Richardson [facility] MONTHS, IM, QUAD [facility] POCT URINALYSIS W/O 2020-08-26 22:15:00 Key Richardson [facility] [place] SPECIFIC GRAVITY [facility] POCT URINALYSIS 2019-05-13 20:43:00 Devika Hirsch Universit y [facility] NO SHOW OR MISSED 2019-05-13 20:00:36 Doctor Unassigned, Univers [facility] APPOINTMENT POLICY [facility] ACKNOWLEDGEMENT Encounters Start End Encounter Admission Attending Care Care Encounter Source Date/Time Date/Time Type Type Clinicians Facility Department ID 2021-07-24 Emergency [facility] [id number] Univers 17:15:12 ity [facility] 2021-07-22 Emergency [facility] [id number] Univers 11:44:33 ity [facility] 2021-07-22 Emergency [facility] [id number] Univers 09:23:58 ity [facility] 2021-05-14 2021-05-15 Emergency Mamta, TRAUMA [id number] Univers 21:27:00 03:51:00 Suresh Wood CENTER [id number] [id number] [id number] [address] 2021-01-23 2021-01-23 [facility] [id number] Univers 13:39:55 23:59:00 Encounter Key C SPECIALTY [id number] [place]y [id number] [id number] [place] [id number] [facility] 2021-01-23 2021-01-23 [facility] [id number] 13:39:55 23:59:00 Encounter Key C SPECIALTY [id number] CARE [id number] CENTER AT [id number] [address] 2021-01-23 2021-01-23 [facility] [id number] Univers 09:15:00 09:15:00 KEY [id number] ity o f [facility] 2021-01-23 2021-01-23 Outpatient R AKINSIPE, [facility] [id number] Univers 00:00:00 00:00:00 KEY ity o f [facility] 2021-01-23 2021-01-23 Telephone [facility] [id number] [facility] [place] 00:00:00 00:00:00 Key C LEAD SOFTWARE TESTER [id number] ity of REGIONAL [id number] [place] as MATERNAL [id number] Med ical & CHILD [address] [place] [address] 2021-01-23 2021-01-23 Telephone [facility] [id number] 00:00:00 00:00:00 Key C LEAD SOFTWARE TESTER [id number] REGIONAL [id number] MATERNAL [id number] & CHILD [address] [place] [address] 2021-01-13 2021-01-13 Outpatient R AKINSIPE, [facility] [id number] Univers 13:15:00 13:15:00 KEY [id number] ity o [facility] 2021-01-13 2021-01-13 Outpatient R AKINSIPE, [facility] [id number] Univers 13:15:00 13:15:00 KEY ity o [facility] 2021-01-02 2021-01-02 Telephone [facility] [id number] Univers 00:00:00 00:00:00 Key C LEAD SOFTWARE TESTER [id number] ity of REGIONAL [id number] [place] as MATERNAL [id number] [facility] ical & CHILD [address] [place] [address] 2021-01-02 2021-01-02 Telephone [facility] [id number] 00:00:00 00:00:00 Key C LEAD SOFTWARE TESTER [id number] REGIONAL [id number] MATERNAL [id number] & CHILD 107 [facility] 2020-12-07 2020-12-07 Outpatient R AKINSIPE, [facility] [id number] Univers 15:00:00 15:00:00 KEY [id number] ity o f [facility] 2020-12-07 2020-12-07 Outpatient R [place], [facility] [id number] Univers 15:00:00 15:00:00 KEY ity o f [facility] 2020-12-07 2020-12-07 Outpatient R AKINS[place], [facility] [id number] Univers 15:00:00 15:00:00 KEY ity o [facility] 2020-11-23 2020-11-23 Outpatient R AKINSIPE, [facility] [id number] 8P-20 Univers 14:15:00 14:15:00 KEY [id number] ity o [facility] 2020-11-23 2020-11-23 Outpatient R AKINS[place], [facility] [id number] Univers 00:00:00 00:00:00 KEY ity o [facility] 2020-11-11 2020-11-11 Telephone [facility] [id number] Univers 00:00:00 00:00:00 Key C LEAD SOFTWARE TESTER [id number] ity of REGIONAL 4.2.7.2.686 [place] as MATERNAL [phone] Med ical & CHILD 107 [facility] 2020-11-11 2020-11-11 Telephone [facility] [id number] 00:00:00 00:00:00 Key C LEAD SOFTWARE TESTER [id number] REGIONAL [id number] MATERNAL [phone] & CHILD 107 [facility] 2020-10-17 2020-10-17 Letter [facility] [id number] Univers 00:00:00 00:00:00 (Out) Key C LEAD SOFTWARE TESTER [id number] ity of REGIONAL 4.2.7.2.686 [place] as MATERNAL [phone] Med ical & CHILD 107 [facility] 2020-10-17 2020-10-17 Letter Akinsipe, [facility] [id number] 00:00:00 00:00:00 (Out) Key Ricks LEAD SOFTWARE TESTER [id number] [facility] [id number] MATERNAL [phone] & CHILD 107 [facility] 2020-10-07 2020-10-07 Outpatient R AKINSIPE, [facility] [id number] 8P-20 Univers 15:00:00 15:00:00 KEY [id number] ity o [facility] 2020-10-07 2020-10-07 Outpatient R AKINSIPE, [facility] [id number] Univers 15:00:00 15:00:00 KEY meyery o f [facility] 2020-10-04 2020-10-04 Outpatient R AKINSIPE, [facility] [id number] 8P-20 Univers 14:15:00 14:15:00 KEY [id number] ity o f [facility] 2020-10-04 2020-10-04 Outpatient R AKINSIPE, [facility] [id number] Univers 14:15:00 14:15:00 KEY meyery o [facility] 2020-09-20 2020-09-20 Outpatient R AKINSIPE, [facility] [id number] 8P-20 Univers 13:30:00 13:30:00 KEY [id number] mitchy o [facility] 2020-09-20 2020-09-20 Outpatient R AKINSIPE, [facility] [id number] Univers 13:30:00 13:30:00 KEY meyery o [facility] 2020-09-07 2020-09-07 Emergency [facility] [id number] Univers 16:29:00 20:08:00 Yenny Hall 350.1.13.10 [facility] 4.2.7.2.686 Arturo s [place] [phone] [address] 2020-09-07 2020-09-07 Emergency [facility] [id number] 16:29:00 20:08:00 Yenny Hall 350.1.13.10 [place] 42.7.2.686 [place] [id number] [id number] 2020-09-07 2020-09-07 Office Akinsipe, [facility] 1.2.101.087 [id number] Univers 14:27:17 15:59:19 Visit Key Ricks LEAD SOFTWARE TESTER 350.1.13.10 ity [facility] 4.2.7.2.686 [place]dal[place] as MATERNAL [phone] Med ical & CHILD [address] [place] [address] 2020-09-07 2020-09-07 Office Akinsipe, [facility] [id number] 14:27:17 15:59:19 Visit Key Ricks LEAD SOFTWARE TESTER 350.1.13.10 [facility] 4.2.7.2.686 MATERNAL [phone] & CHILD [address] [place] [address] 2020-09-07 2020-09-07 Outpatient R AKINSIPE, [facility] [id number] 8P-20 Univers 14:30:00 14:30:00 KEY [id number] ity o [facility] 2020-09-07 2020-09-07 Outpatient R AKINSIPE, [facility] [id number] Univers 14:30:00 14:30:00 KEY meyery o [facility] 2020-09-07 2020-09-07 Orders Doctor ARIK [id number] Univers 00:00:00 00:00:00 Only Unassigned, FARAZ 350.1.13.10 ity of [facility] 4.2.7.2.686 [place] as [phone] [address] 2020-09-05 2020-09-05 Outpatient R HIRSCH, [facility] [id number] -[id number] Univers 15:00:00 15:00:00 DEVIKA [id number] ity o [facility] 2020-09-02 2020-09-02 Outpatient R AKINSIPE, [facility] [id number] 8P-20 Univers 10:30:00 10:30:00 KEY [id number] ity o [facility] 2020-09-02 2020-09-02 Outpatient R AKINSIPE, [facility] [id number] Univers 10:30:00 10:30:00 KEY ity o f [facility] 2020-08-26 2020-08-26 Emergency Mckinley, [facility] [id number] Univers 17:30:00 20:13:00 Carmenza Fitzgerald [place] 350.1.13.10 i ty [facility] 4.2.7.2.686 [place] [phone] [address] 2020-08-26 2020-08-26 Office Debra [facility] [id number] Univers 15:55:58 17:12:33 Visit Key C LEAD SOFTWARE TESTER 350.1.13.10 ity of [facility] 4.2.7.2.686 [place] as MATERNAL [phone] [facility] ical & CHILD [address] [place] [address] 2020-08-26 2020-08-26 Office Debra [facility] [id number] Univers 16:51:05 17:11:04 Visit Key Ricks LEAD SOFTWARE TESTER 350.1.13.10 ity of [facility] 4.2.7.2.686 [place] as MATERNAL [phone] [facility] [address] [place] [address] 2020-08-26 2020-08-26 Nurse Visit, [facility] Nurse [facility] 1.2 .840.114 [id number] Univers 16:20:49 16:35:49 Visit Key Richardson LEAD SOFTWARE TESTER 350.1.13. 10 ity of [facility] 4.2.7.2.686 [place] as MATERNAL [phone] [facility] [address] [place] [address] 2020-08-26 2020-08-26 Outpatient R [facility] [id number] -[id number] Univers 15:30:00 15:30:00 [id number] ity of [facility] 2020-08-26 2020-08-26 Outpatient R [facility] [id number] Univers 15:30:00 15:30:00 ity of [facility] 2020-08-26 2020-08-26 [facility] [id number] Univers 15:15:00 15:15:00 KEY ity o f [facility] 2020-08-26 2020-08-26 Outpatient R AKINCARTER [facility] [id number] Univers 15:00:00 15:00:00 KEY ity o f [facility] 2019-12-14 2019-12-14 Telephone Ananda MNMARINO [id number] Univers 00:00:00 00:00:00 Devika Zelaya LEAD SOFTWARE TESTER 350.1.13.10 ity of [facility] 4.2.7.2.686 [place] as MATERNAL [phone] [facility] ical & CHILD [address] [place] [address] 2019-05-13 2019-05-13 Office Ananda [facility] 1.2.840.114 [id number] Univers 15:01:34 16:41:19 Visit Devika Zelaya LEAD SOFTWARE TESTER 350.1.13.10 ity of [facility] 4.2.7.2.686 [place] as MATERNAL [id number] [facility] & CHILD [address] [place] [address] 2019-05-13 2019-05-13 Orders Doctor ARIK 1.2.840.114 [id number] Univers 00:00:00 00:00:00 Only Unassigned, FARAZ 350.1.13.10 ity of [place] [facility] 4.2.7.2.686 [place] as [phone] [address] 2009-12-23 2009-12-26 [facility] [id number] Univers 23:02:00 14:30:00 KILLIAN 0 ity o f [facility] Results Test Description Test Time Test Comments Results Result Comments Source TROPONIN I 2021-05-15 04:08:08 Test Item Value Reference Range Interpretation Comme nts TROPONIN I (test code = 0.002 ng/mL See_Comment [Au tomated message] The [id number]) system which ge nerated this result tra nsmitted reference range : <=0.034. The reference r aaron was not used to int erpret this result as normal/abnormal . ESTEFANI (test code = ESTEFANI) Reference (Normal) Range (defined by the 99th percentile reference limit): <= 0.034 ng/mL Note: Cardiac troponin begins to rise 3-4 hours after the onset of ischemia. Repeat in 4-6 hours if the sample was drawn within 3-4 hours of the onset of the symptom and found normal. Diagnosis of myocardial injury is made with acute changes in cTn concentrations with at least one serial sample above the 99th percentile upper reference limit (URL), taken together with the patient's clinical presentation. Biotin has been reported to cause a negative bias, interpret results relative to patient's use of biotin. Lab Interpretation Normal (test code = 84761-6) [id number] 04:08:08 Test Item Value Reference Range Interpretation Comments NT-proBNP (test code 210 pg/mL See_Comment H [Autom ated = 6133568859) message] The system which generated this result transmitted reference range : <=125. The reference range was not used to interpret this result as normal/abnormal . ESTEFANI (test code = ESTEFANI) Biotin has been reported to cause a negative bias, interpret results relative to patient's use of biotin. Lab Interpretation Abnormal (test code = 22567-0) [facility]21[facility]23 04:00:38 Test Item Value Reference Range Interpretation Comments APPEARANCE (test code = Clear Clear 5803466663) COLOR (test code = Yellow Yellow 7113074360) PH (test code = 4.8-8.0 2309046086) SP GRAVITY (test code = 1.003-1.030 9062427238) GLU U QUAL (test code = Normal Normal 2637423547) BLOOD (test code = Negative Negative 1655884672) KETONES (test code = Negative Negative 6925010934) PROTEIN (test code = Negative Negative 2887-8) UROBILIN (test code = Normal Normal 4965391741) BILIRUBIN (test code = Negative Negative 1391509816) NITRITE (test code = Negative Negative 2372726180) LEUK ANGELICA (test code = Negative Negative 3164779188) RBC/HPF (test code = See_Comment [Autom ated message] 9464739403) The system POPV[employer] generated this result transmitted ref erence range: 0 - 3 HP F. The reference range was not used to int erpret this result as normal/abnormal . WBC/HPF (test code = See_Comment [Autom ated message] 4249486946) The system [employer] generated this result transmitted ref erence range: 0 - 5 HP F. The reference range was not used to int erpret this result as normal/abnormal . BACTERIA (test code = Negative Negative 5423643244) SQ EPITH (test code = See_Comment H [Auto mated message] 9507024398) The system [employer] generated this result transmitted ref erence range: <=2 HPF. The reference range was not used to int erpret this result as normal/abnormal . Lab Interpretation (test Abnormal code = 80576-4) [facility]. METABOLIC PANEL (07967)2021-05-15 03:54:11 Test Item Value Reference Range Interpretation Comments NA (test code = 134 mmol/L 135-145 L 6368650254) K (test code = 4.0 mmol/L 3.5-5.0 0168314091) CL (test code = 100 mmol/L 98-108 9274810353) CO2 TOTAL (test code = 25 mmol/L 23-31 2272455447) AGAP (test code = 2-16 8562308971) BUN (test code = 12 mg/dL 7-23 2281231864) GLUCOSE (test code = 97 mg/dL 70-110 5696825222) CREATININE (test code = 0.82 mg/dL 0.50-1.04 8302318812) TOTAL BILI (test code = 0.4 mg/dL 0.1-1.0 6818957703) CALCIUM (test code = 9.0 mg/dL 8.6-10.6 1248302539) T PROTEIN (test code = 7.2 g/dL 6.3-8.2 0299945448) ALBUMIN (test code = 4.3 g/dL 3.5-5.0 1393140179) ALK PHOS (test code = 74 U/L 34-122 2275294815) ALTv (test code = 40 U/L 5-35 H 1742-6) AST(SGOT) (test code = 34 U/L 13-40 9588035675) eGFR (test code = mL/min/1.73m2 3034804976) ESTEFANI (test code = ESTEFANI) Association of Glomerular Filtration Rate (GFR) and Staging of Kidney Disease* + --+ --+ ------+| GFR (mL/min/1.73 m2) ?| With Kidney Damage ?| ?Without Kidney Damage+ --------+ --------+ +| ?>90 ?| ?Stage one ?| ? Normal ?+ ---+ ---+ -------+| ?60-89 ?| ?Stage two ?| ? Decreased GFR ? + --+ --+ ------+| ?30-59 ?| ?Stage three ?| ? Stage three ? + --+ --+ ------+| ?15-29 ?| ?Stage four ? | ? Stage four ?+ ---+ ---+ -------+| ?<15 (or dialysis) ? ?| ?Stage five ? | ? Stage five ?+ ---+ ---+ -------+ *Each stage assumes the associated GFR level has been in effect for at least three months. ?Stages 1 to 5, with or without kidney disease, indicate chronic kidney disease. Notes: Determination of stages one and two (with eGFR >59mL/min/1.73 m2) requires estimation of kidney damage for at least three months as defined by structural or functional abnormalities of the kidney, manifested by either:Pathological abnormalities or Markers of kidney damage (including abnormalities in the composition of the blood or urine or abnormalities in imaging tests). Lab Interpretation Abnormal (test code = 01140-1) [facility]2021-08-[facility] 03:54:11 Test Item Value Reference Range Interpretation Comments PHOSPHORUS (test code = 7292380837) 4.0 mg/dL 2.5-5.0 Lab Interpretation (test code = Normal 06783-1) [facility]2021-08-23 03:54:11 Test Item Value Reference Range Interpretation Comments MAGNESIUM (test code = 3679198439) 1.9 mg/dL 1.7-2.4 Lab Interpretation (test code = Normal 45899-8) [facility]2021-08-23 03:54:11 Test Item Value Reference Range Interpretation Comments LIPASE (test code = 3888279180) 124 U/L 0-220 Lab Interpretation (test code = Normal 89216-1) [facility][id number] 03:53:41 Test Item Value Reference Interpretation Comments Range D-DIMER (test code = <0.21 See_Comment [Autom ated 8057352762) message] The system which generated this result transmitted reference range : <0.50 ?g/mL (FEU). The reference range was not used to interpret this result as normal/abnormal . ESTEFANI (test code = This test may be ESTEFANI) used in conjunction with a clinical pretest probability (PTP) assessment model to exclude venous thromboembolism (VTE) in patients suspected of deep venous thrombosis (DVT) and pulmonary embolism (PE) A D-Dimer value less than 0.50 ?g/ml (FEU) has a negative predicative value of 96 to 100% (95% CI)and 97 to 100% (95% CI) as an aid in the diagnosis of deep vein thrombosis (DVT) and pulmonary embolism when there is low or moderate pretest probability of PE or DVT. D-Dimer values are expressed in initial fibrinogen equivalent units (FEU)" The assay results should be used with other information, including the clinical context, in forming a diagnosis. Lab Interpretation Normal (test code = 07190-0) [facility] (ID NOW RAPID TESTING)2021-05-15 03:50:30 Test Item Value Reference Range Interpretation Comments SARS-CoV-2 Rapid ID NOW Not Detected Not Detected (test code = 44284-4) ESTEFANI (test code = ESTEFANI) ID NOW COVID-19 Assay is an isothermal nucleic acid amplification test intended for the qualitative detection of nucleic acid from SARS-CoV-2 viral RNA in nasopharyngeal (STATION SUPERINTENDENT) specimens. It is used under Emergency Use Authorization (EUA) by FDA. The limit of detection (LOD) of the assay is 125 Genome Equivalents/mL. A positive result is indicative of the presence of SARS-CoV-2 RNA. ?Clinical correlation with patient history and other diagnostic information is necessary to determine patient infection status. A negative (Not Detected) result does not preclude SARS-CoV-2 infection. In patients with clinical symptoms and other tests that are consistent with SARS-CoV-2 infection, negative results should be treated as presumptive negative and a new specimen should be tested with alternative PCR molecular test. Invalid: Please collect a new specimen for repeat patient testing if clinically indicated. Lab Interpretation Normal (test code = 61707-7) [facility] WITH [id number] 03:37:28 Test Item Value Reference Range Interpretation Comments WBC (test code = See_Comment [Automated 9890-2) message] The sy stem which generated this result transmitted reference range : 4.30 - 11.10 10*3/?L. The reference range was not used to interpret this result as normal/abnormal . RBC (test code = See_Comment [Automated 789-8) message] The sy stem which generated this result transmitted reference range : 3.93 - 5.25 10*6/?L. The reference range was not used to interpret this result as normal/abnormal . HGB (test code = 14.1 g/dL 11.6-15.0 718-7) HCT (test code = 40.4 % 35.7-45.2 4544-3) MCV (test code = 97.1 fL 80.6-95.5 H 787-2) MCH (test code = 33.9 pg 25.9-32.8 H 785-6) MCHC (test code = 34.9 g/dL 31.6-35.1 786-4) RDW-SD (test code = 45.2 fL 39.0-49.9 27794-6) RDW-CV (test code = 12.8 % 12.0-15.5 788-0) PLT (test code = See_Comment [Automated 777-3) message] The sy stem which generated this result transmitted reference range : 166 - 358 10*3/ ?L. The reference r aaron was not used to interpret this result as normal/abnormal . MPV (test code = 8.7 fL 9.5-12.9 L 95716-7) NRBC/100 WBC (test See_Comment [Automat ed code = 9253284474) message] The system which generated this result transmitted reference range : 0.0 - 10.0 /100 WBCs. The refer ence range was not u sed to interpret th is result as normal/abnormal . NRBC x10^3 (test code <0.01 See_Comment [Auto mated = 6483711131) message] The s ystem which generated this result transmitted reference range : 10*3/?L. The reference range was not used to interpret this result as normal/abnormal . GRAN MAT (NEUT) % 63.9 % (test code = 770-8) IMM GRAN % (test code 0.20 % = 4425572271) LYMPH % (test code = 25.4 % 736-9) MONO % (test code = 8.5 % 5905-5) EOS % (test code = 1.3 % 713-8) BASO % (test code = 0.7 % 706-2) GRAN MAT x10^3(ANC) 5.37 10*3/uL 1.88-7.09 (test code = 8487903277) IMM GRAN x10^3 (test <0.03 0.00-0.06 code = 0573335069) LYMPH x10^3 (test code 2.13 10*3/uL 1.32-3.29 = 731-0) MONO x10^3 (test code 0.71 10*3/uL 0.33-0.92 = 742-7) EOS x10^3 (test code = 0.11 10*3/uL 0.03-0.39 711-2) BASO x10^3 (test code 0.06 10*3/uL 0.01-0.07 = 704-7) Lab Interpretation Abnormal (test code = 88361-8) [facility] [id number] 17:23:00 Test Item Value Reference Range Interpretation Comments URINE CULTURE (test > 100,000 CFU/mL mixed code = 630-4) aerobic organisms - suggests endogenous microbial contamination [facility] [id number] 17:23:00 Test Item Value Reference Range Interpretation Comments URINE CULTURE (test > 100,000 CFU/mL mixed code = 630-4) aerobic organisms - suggests endogenous microbial contamination [facility] [id number] 01:33:00 Test Item Value Reference Range Interpretation Comments TROPONIN I (test <0.012 See_Comment [Automated code = 5602829295) message] The system which generated this result transmitted reference range : <=0.034 ng/mL. The reference range was not used to interpr et this result as normal/abnormal . ESTEFANI (test code = Equal or Less than ESTEFANI) 0.034 ng/ml---Normal ?Note: Cardiac troponin begins to rise 3-4 hours after the onset of ischemia. Repeat in 4-6 hours if the sample was drawn within 3-4 hours of the onset of the symptom and found normal. Between 0.035 and 0.120 ng/mL--- Borderline. Questionable myocardial injury or necrosis ? ?Note: Serial measurement may be necessary to confirm or exclude the diagnosis of myocardial injury or necrosis; Clinical correlation (symptoms, EKGs, imaging studies, and others) required; Repeat in 4-6 hours if clinically indicated. ? Equal or Higher than 0.121 ng/mL---Abnormal. Myocardial Injury or Necrosis Likely ? Biotin has been reported to cause a negative bias, interpret results relative to patient's use of biotin. ? Lab Interpretation Normal (test code = 99993-7) [facility] 1 [id number] 01:31:40 Cardiomegaly with mild prominence of the interstitial markings. These couldrepresent mild edema or pneumonitis. Please correlate clinically. RL: 135 ORDERING PHYSICIAN: Gissel VELASCO HISTORY: Shortness of breath. ? COMPARISON: none FINDINGS: Single frontal view of the chest. Heart is mildly prominent. ?There is mild prominence of the in terstitialmarkings.. There are no focal areas of consolidation. There is nopneumothorax. ?There are no pleural effusions. Osseous structures areunremarkable. ? Please note that chest radiography is nota sensitive modality for thedetection of masses. [facility], Radiant Results Inft User - 08/26/2020 7:32 PM CSTORDERING PHYSICIAN: CARMENZA MCKINLEY HISTORY: Shortness of breath. COMPARISON: noneFINDINGS:Single frontal view of the chest.Heart is mildly prominent. There is mild prominence of the interstitialmarkings.. There are no focal areas of consolidation. There is nopneumothorax. There are no pleural effusions. Osseous structures areunremarkable. Please note that chest radiography is not a sensitive modality for thedetection of masses.IMPRESSIONCardiomegaly with mild prominence of the interstitialmarkings. These couldrepresent mild edema or pneumonitis. Please correlate clinically.RL: 135 [facility] METABOLIC PANEL (08918)2020-08-27 01:23:00 Test Item Value Reference Range Interpretation Comments NA (test code = 133 mmol/L 135-145 L 1419425443) K (test code = 4.1 mmol/L 3.5-5 9560440800) CL (test code = 99 mmol/L 98-108 0967943002) CO2 TOTAL (test code = 26 mmol/L 23-31 4820066951) AGAP (test code = 2-16 6293785111) BUN (test code = 8 mg/dL 7-23 8708262839) GLUCOSE (test code = 102 mg/dL 70-110 0365601208) CREATININE (test code = 0.68 mg/dL 0.5-1.04 8593378695) TOTAL BILI (test code = 0.5 mg/dL 0.1-1.0 8160972451) CALCIUM (test code = 9.5 mg/dL 8.6-10.6 7727954965) T PROTEIN (test code = 8.1 g/dL 6.3-8.2 5890670890) ALBUMIN (test code = 4.7 g/dL 3.5-5 9068001225) ALK PHOS (test code = 94 U/L 34-122 6759618441) ALTv (test code = 37 U/L 5-35 H 1742-6) AST(SGOT) (test code = 36 U/L 13-40 6327159452) eGFR Calculation mL/min/1.73m2 (Non-) (test code = 0000099187) eGFR Calculation mL/min/1.73m2 () (test code = 7240039269) ESTEFANI (test code = ESTEFANI) Association of Glomerular Filtration Rate (GFR) and Staging of Kidney Disease* + --+ --+ ------+| GFR (mL/min/1.73 m2) ?| With Kidney Damage ?| ?Without Kidney Damage+ --------+ --------+ +| ?>90 ?| ?Stage one ?| ? Normal ?+ ---+ ---+ -------+| ?60-89 ?| ?Stage two ?| ? Decreased GFR ? + --+ --+ ------+| ?30-59 ?| ?Stage three ?| ? Stage three ? + --+ --+ ------+| ?15-29 ?| ?Stage four ? | ? Stage four ?+ ---+ ---+ -------+| ?<15 (or dialysis) ? ?| ?Stage five ? | ? Stage five ?+ ---+ ---+ -------+ *Each stage assumes the associated GFR level has been in effect for at least three months. ?Stages 1 to 5, with or without kidney disease, indicate chronic kidney disease. Notes: Determination of stages one and two (with eGFR >59mL/min/1.73 m2) requires estimation of kidney damage for at least three months as defined by structural or functional abnormalities of the kidney, manifested by either:Pathological abnormalities or Markers of kidney damage (including abnormalities in the composition of the blood or urine or abnormalities in imaging tests). Lab Interpretation Abnormal (test code = 69420-8) [facility]2020-12-05 00:59:00 Test Item Value Reference Range Interpretation Comments APPEARANCE (test code = Clear Clear 7871449713) COLOR (test code = Yellow Yellow 1249042913) PH (test code = 4.8-8.0 0877389651) SP GRAVITY (test code = 1.003-1.030 0634512018) GLU U QUAL (test code = Negative Negative 6322329253) BLOOD (test code = Negative Negative 2456825865) KETONES (test code = Trace Negative A 1847158208) PROTEIN (test code = Negative Negative 2887-8) UROBILIN (test code = 0.2 mg/dL See_Comment [Auto mated message] 0858313520) The system [employer] generated this result transmit luis miguel reference range : 0-1.0 mg/dL. Th e reference range was not used to interpret this result as normal/abnormal . BILIRUBIN (test code = Negative Negative 8442579181) NITRITE (test code = Negative Negative 1879052343) LEUK ANGELICA (test code = Negative Negative 4496416000) RBC/HPF (test code = <1 See_Comment [Autom ated message] 9029269662) The system [employer] generated this result transmit luis miguel reference range : 0 - 3 HPF. The refe rence range was not u sed to interpret th is result as normal/abnormal . WBC/HPF (test code = <1 See_Comment [Autom ated message] [id number]) The system whic h generated this result transmit luis miguel reference range : 0 - 5 HPF. The refe rence range was not u sed to interpret th is result as normal/abnormal . BACTERIA (test code = Negative Negative [id number]) Lab Interpretation (test Abnormal code = 09956-7) [facility] [id number] 00:52:00 Test Item Value Reference Range Interpretation Comments APTT Patient (test See_Comment [Automat ed code = 3173-2) message] The system which generated this result transmitted reference range : 23 - 38 Seconds . The reference range was not used to interpr et this result as normal/abnormal . ESTEFANI (test code = ESTEFANI) The [facility] patient population mean normal value for aPTT is 30 seconds. Lab Interpretation Normal (test code = 86303-4) [facility] / [id number] 00:50:00 Test Item Value Reference Range Interpretation Comments PROTIME PATIENT (test See_Comment [Auto mated message] code = 5964-2) The system wh ich generated this result transmitted ref erence range: 12.0 - 1 4.7 Seconds. The re ference range was not u sed to interpret this result as normal/abnor mal. INR (test code = 6301-6) Nor mal INR <1.1; Warfarin Therap eutic range 2.0 to 3. 0 or 2.5 to 3.5, dep ending upon the indica tions. Lab Interpretation (test Normal code = 53868-6) [facility] [id number] 00:45:00 Test Item Value Reference Range Interpretation Comments WBC (test code = See_Comment [Automated 7990-2) message] The sy stem which generated this result transmitted reference range : 4.30 - 11.10 10*3/?L. The reference range was not used to interpret this result as normal/abnormal . RBC (test code = See_Comment [Automated 419-8) message] The sy stem which generated this result transmitted reference range : 3.93 - 5.25 10*6/?L. The reference range was not used to interpret this result as normal/abnormal . HGB (test code = 14.5 g/dL 11.6-15 718-7) HCT (test code = 41.4 % 35.7-45.2 4544-3) MCV (test code = 97.6 fL 80.6-95.5 H 787-2) MCH (test code = 34.2 pg 25.9-32.8 H 785-6) MCHC (test code = 35.0 g/dL 31.6-35.1 786-4) RDW-SD (test code = 41.3 fL 39-49.9 59703-6) RDW-CV (test code = 11.5 % 12-15.5 L 788-0) PLT (test code = See_Comment [Automated 777-3) message] The sy stem which generated this result transmitted reference range : 166 - 358 10*3/ ?L. The reference r aaron was not used to interpret this result as normal/abnormal . MPV (test code = 9.0 fL 9.5-12.9 L 79297-8) NRBC/100 WBC (test See_Comment [Automat ed code = [id number]) message] The system which generated this result transmitted reference range : 0.0 - 10.0 /100 WBCs. The refer ence range was not u sed to interpret th is result as normal/abnormal . NRBC x10^3 (test code <0.01 See_Comment [Auto mated = [id number]) message] The s ystem which generated this result transmitted reference range : 10*3/?L. The reference range was not used to interpret this result as normal/abnormal . GRAN MAT (NEUT) % 66.0 % (test code = 770-8) IMM GRAN % (test code 0.10 % = [id number]) LYMPH % (test code = 21.5 % 736-9) MONO % (test code = 7.8 % 5905-5) EOS % (test code = 4.2 % 713-8) BASO % (test code = 0.4 % 706-2) GRAN MAT x10^3(ANC) 5.16 10*3/uL 1.88-7.09 (test code = [id number]) IMM GRAN x10^3 (test <0.03 0-0.06 code = 2579972246) LYMPH x10^3 (test code 1.68 10*3/uL 1.32-3.29 = 731-0) MONO x10^3 (test code 0.61 10*3/uL 0.33-0.92 = 742-7) EOS x10^3 (test code = 0.33 10*3/uL 0.03-0.39 711-2) BASO x10^3 (test code 0.03 10*3/uL 0.01-0.07 = 704-7) Lab Interpretation Abnormal (test code = 66876-7) [facility] URINALYSIS W/O SPECIFIC [id number] 22:15:00 Test Item Value Reference Range Interpretation Comments POCT PH U (test code = 3254) 7 mg/dl 5-8 POCT U LEUK EST (test code = Trace Negative - Negative 3263) POCT U NIT (test code = 3262) Neg Negative - Negative POCT U PROT (test code = 3259) Trace Negative - Negative POCT U GLU (test code = 3256) Neg Negative - Negative POCT U KETONE (test code = 3258) None Negative - Negative POCT U BLD (test code = 3257) Trace Negative - Negative [facility] URINALYSIS W/O SPECIFIC [id number] 22:15:00 Test Item Value Reference Range Interpretation Comments POCT PH U (test code = 3254) 7 mg/dl 5-8 POCT U LEUK EST (test code = Trace Negative - Negative 3263) POCT U NIT (test code = 3262) Neg Negative - Negative POCT U PROT (test code = 3259) Trace Negative - Negative POCT U GLU (test code = 3256) Neg Negative - Negative POCT U KETONE (test code = 3258) None Negative - Negative POCT U BLD (test code = 3257) Trace Negative - Negative [facility] URINALYSIS W SPECIFIC [id number] 20:43:00 Test Item Value Reference Range Interpretation Comments POCT U SP GRAV (test code = 3255) . 1.005-1.025 POCT PH U (test code = 3254) 5 mg/dl 5-8 POCT U LEUK EST (test code = NEG Negative - Negative 3263) POCT U NIT (test code = 3262) NEG Negative - Negative POCT U PROT (test code = 3259) TRACE Negative - Negative POCT U GLU (test code = 3256) NEG Negative - Negative POCT U KETONE (test code = 3258) NEG Negative - Negative POCT U UROBILI (test code = 3260) . 0.2-1 POCT U BILI (test code = 3261) . Negative - Negative POCT U BLD (test code = 3257) Negative - Negative POCT U COLOR (test code = 3266) POCT U APPEAR (test code = 3267) [facility] URINALYSIS W SPECIFIC [id number] 20:43:00 Test Item Value Reference Range Interpretation Comments POCT U SP GRAV (test code = 3255) . 1.005-1.025 POCT PH U (test code = 3254) 5 mg/dl 5-8 POCT U LEUK EST (test code = NEG Negative - Negative 3263) POCT U NIT (test code = 3262) NEG Negative - Negative POCT U PROT (test code = 3259) TRACE Negative - Negative POCT U GLU (test code = 3256) NEG Negative - Negative POCT U KETONE (test code = 3258) NEG Negative - Negative POCT U UROBILI (test code = 3260) . 0.2-1 POCT U BILI (test code = 3261) . Negative - Negative POCT U BLD (test code = 3257) Negative - Negative POCT U COLOR (test code = 3266) POCT U APPEAR (test code = 3267) [facility] URINALYSIS W SPECIFIC [id number] 20:43:00 Test Item Value Reference Range Interpretation Comments POCT U SP GRAV (test code = 3255) . 1.005-1.025 POCT PH U (test code = 3254) 5 mg/dl 5-8 POCT U LEUK EST (test code = NEG Negative - Negative 3263) POCT U NIT (test code = 3262) NEG Negative - Negative POCT U PROT (test code = 3259) TRACE Negative - Negative POCT U GLU (test code = 3256) NEG Negative - Negative POCT U KETONE (test code = 3258) NEG Negative - Negative POCT U UROBILI (test code = 3260) . 0.2-1 POCT U BILI (test code = 3261) . Negative - Negative POCT U BLD (test code = 3257) Negative - Negative POCT U COLOR (test code = 3266) POCT U APPEAR (test code = 3267) [facility] URINALYSIS W SPECIFIC [id number] 20:43:00 Test Item Value Reference Range Interpretation Comments POCT U SP GRAV (test code = 3255) . 1.005-1.025 POCT PH U (test code = 3254) 5 mg/dl 5-8 POCT U LEUK EST (test code = NEG Negative - Negative 3263) POCT U NIT (test code = 3262) NEG Negative - Negative POCT U PROT (test code = 3259) TRACE Negative - Negative POCT U GLU (test code = 3256) NEG Negative - Negative POCT U KETONE (test code = 3258) NEG Negative - Negative POCT U UROBILI (test code = 3260) . 0.2-1 POCT U BILI (test code = 3261) . Negative - Negative POCT U BLD (test code = 3257) Negative - Negative POCT U COLOR (test code = 3266) POCT U APPEAR (test code = 3267) [facility] URINALYSIS W SPECIFIC [id number] 20:43:00 Test Item Value Reference Range Interpretation Comments POCT U SP GRAV (test code = 3255) . 1.005-1.025 POCT PH U (test code = 3254) 5 mg/dl 5-8 POCT U LEUK EST (test code = NEG Negative - Negative 3263) POCT U NIT (test code = 3262) NEG Negative - Negative POCT U PROT (test code = 3259) TRACE Negative - Negative POCT U GLU (test code = 3256) NEG Negative - Negative POCT U KETONE (test code = 3258) NEG Negative - Negative POCT U UROBILI (test code = 3260) . 0.2-1 POCT U BILI (test code = 3261) . Negative - Negative POCT U BLD (test code = 3257) Negative - Negative POCT U COLOR (test code = 3266) POCT U APPEAR (test code = 3267) [facility] [id number] 20:43:00 Test Item Value Reference Range Interpretation Comments POCT U SP GRAV (test code = 3255) . 1.005-1.025 POCT PH U (test code = 3254) 5 mg/dl 5-8 POCT U LEUK EST (test code = NEG Negative - Negative 3263) POCT U NIT (test code = 3262) NEG Negative - Negative POCT U PROT (test code = 3259) TRACE Negative - Negative POCT U GLU (test code = 3256) NEG Negative - Negative POCT U KETONE (test code = 3258) NEG Negative - Negative POCT U UROBILI (test code = 3260) . 0.2-1 POCT U BILI (test code = 3261) . Negative - Negative POCT U BLD (test code = 3257) Negative - Negative POCT U COLOR (test code = 3266) POCT U APPEAR (test code = 3267) [facility]
[2021-08-26] MEDS ORDERED: TETANUS & DIPHTHERIA TOX,ADULT 0.5 ML VIAL ONE (18:43)
[2021-08-26] MEDS ORDERED: SMZ./TMP. 800/160 MG TABLET ONE (18:43)
--- NOTE | 2021-08-26 18:43 | EDPHYS ---
Physician Documentation [facility] Name: Carmel Rodriguez Age: 61 yrs Sex: Female : 1960 Arrival Date: 08/26/2021 Time: 17:21 Bed 11 Private MD: ED Physician Melchor Sarmiento HPI: 08/26 18:41 This 61 yrs old Female presents to ER via Ambulatory with complaints of Insect pm1 Bite, Ear Pain. 18:41 The patient was bitten on the forehead and medial aspect of right supraorbital ridge pm1 and scalp, by unknown insect while in bed at night, at home. Onset: The symptoms/episode began/occurred 6 day(s) ago. Secondary to the bite the patient reports pain, swelling. Associated signs and symptoms: Pertinent positives: right ear pain, Pertinent negatives: fever. Severity of symptoms: in the emergency department the symptoms are unchanged. The patient has not experienced similar symptoms in the past. The patient has not recently seen a physician. Historical: - Allergies: 17:48 ACETAMINOPHEN; vg1 17:48 CALCIUM CARBONATE; vg1 17:48 EXCEDRIN; vg1 17:48 Excedrin PM; vg1 17:48 Ibuprofen; vg1 17:48 NSAIDS; vg1 17:48 Toradol; vg1 - PMHx: 17:48 Anxiety; Depression; Hypertension; vg1 - PSHx: 17:48 section; vg1 - Immunization history:: Client reports having NOT received the Covid vaccine. - Social history:: Smoking status: Patient denies any tobacco usage or history of. ROS: 08/27 02:48 Constitutional: Negative for fever, chills, and weight loss, Eyes: Negative for injury, pm1 pain, redness, and discharge. Cardiovascular: Negative for chest pain, palpitations, and edema, Respiratory: Negative for shortness of breath, cough, wheezing, and pleuritic chest pain, MS/Extremity: Negative for injury and deformity. ENT: Positive for ear pain, Negative for sore throat. 02:48 Skin: Positive for swelling, of the forehead and outer aspect of right eyebrow. pm1 02:48 All other systems are negative. Exam: 02:48 Constitutional: This is a well developed, well nourished patient who is awake, alert, pm1 and in no acute distress. Head/Face: Normocephalic, atraumatic. 02:48 Eyes: Exam is negative for acute changes, Extraocular movements: intact throughout, Conjunctiva: no acute changes, no injection. 02:48 ENT: Exam is negative for acute changes, Mouth: Lips: normal, moist, Oral mucosa: normal, pink and intact, moist. 02:48 Cardiovascular: Exam negative for acute changes, Rate: normal, Rhythm: regular, Pulses: no pulse deficits are appreciated. 02:48 Respiratory: Exam negative for acute changes, respiratory distress, shortness of breath. 02:48 Skin: Appearance: normal except for affected area, swelling, noted on the outer aspect of right eyebrow and forehead, that are mild. 02:48 Neuro: Exam negative for acute changes, Orientation: is normal, Mentation: is normal, Motor: is normal, moves all fours. Vital Signs: 08/26 17:41 BP 180 / 71; Pulse 78; Resp 18; Temp 97.6; Pulse Ox 100% ; Weight 114.76 kg; vg1 MDM: 18:40 Patient medically screened. pm1 18:40 Data reviewed: vital signs. Data interpreted: Pulse oximetry: on room air is 100 %. pm1 Interpretation: normal. 18:41 Counseling: I had a detailed discussion with the patient and/or guardian regarding: the pm1 historical points, exam findings, and any diagnostic results supporting the discharge/admit diagnosis, the need for outpatient follow up, a family practitioner, to return to the emergency department if symptoms worsen or persist or if there are any questions or concerns that arise at home. Administered Medications: 18:44 Not Given (Physician Discretion): Bactrim (trimethoprim-sulfamethoxazole) (160 mg-800 pm1 mg (DS) 1 tablet PO once 18:56 Drug: Tetanus-Diphtheria Toxoid Adult 0.5 ml {Pharmaceutical Process Engineer: Quewey. Exp: ss 01/24/2023. Lot #: [id number]. } Route: IM; Site: left deltoid; 19:10 Follow up: Response: No adverse reaction ss 18:56 Drug: Clindamycin 600 mg Route: IM; Site: left gluteus; ss 19:10 Follow up: Response: No adverse reaction ss Disposition: 08/27 07:59 Co-signature as Attending Physician, Melchor Sarmiento MD I agree with the assessment and rn plan of care. Attestation: The patient's history, exam findings, diagnostics, and a summary of any interventions or procedures was reviewed in detail with Jayden Tena NP. Disposition Summary: 08/26/21 18:41 Discharge Ordered Location: Home pm1 Problem: new pm1 Symptoms: have improved pm1 Condition: Stable pm1 Diagnosis - Insect bite (nonvenomous) of other part of head pm1 Followup: pm1 - With: Emergency Department - When: As needed - Reason: Worsening of condition Followup: pm1 - With: Private Physician - When: 2 - 3 days - Reason: Recheck today's complaints, Continuance of care, Re-evaluation by your physician Discharge Instructions: - Discharge Summary Sheet pm1 - Insect Bite, Adult pm1 Forms: - Medication Reconciliation Form pm1 - Thank You Letter pm1 - Antibiotic Education pm1 - Prescription Opioid Use pm1 Prescriptions: - Clindamycin HCl 300 mg Oral Capsule - take 1 capsule by ORAL route every 6 hours for 10 days; 40 capsule; Refills: 0, pm1 Product Selection Permitted Signatures: Melchor Sarmiento MD MD rn Smirch, Shelby, RN RN ss Marinas, Patrick, NP BOTTLING ATTENDANT pm1 Fannie Lainez, RN RN vg1
--- NOTE | 2021-08-26 18:43 | ER ---
Nurse's Notes [facility] Name: Carmel Rodriguez Age: 61 yrs Sex: Female : 1960 Arrival Date: 08/26/2021 Time: 17:21 Bed 11 Private MD: Diagnosis: Insect bite (nonvenomous) of other part of head Presentation: 08/26 17:41 Chief complaint: Patient states: States was a sleep with felt something bit near Right vg1 eye x6 days. Right eye appears to be swollen and red. Also states Right ear pain. Coronavirus screen: Vaccine status: Patient reports being unvaccinated. Client denies travel out of the [place] in the last 14 days. Ebola Screen: Patient negative for fever greater than or equal to 101.5 degrees Fahrenheit, and additional compatible Ebola Virus Disease symptoms. Initial Sepsis Screen: Does the patient meet any 2 criteria? No. Patient's initial sepsis screen is negative. Does the patient have a suspected source of infection? No. Patient's initial sepsis screen is negative. Risk Assessment: Do you want to hurt yourself or someone else? Patient reports no desire to harm self or others. Onset of symptoms was August 20, 2021. 17:41 Method Of Arrival: Ambulatory vg1 17:41 Acuity: CHRISTINE 4 vg1 Triage Assessment: 17:48 Bite description: bite sustained to outer aspect of right eyebrow by an unknown animal. vg1 General: Appears in no apparent distress. comfortable, Behavior is calm, cooperative. Pain: Denies pain. Historical: - Allergies: 17:48 ACETAMINOPHEN; vg1 17:48 CALCIUM CARBONATE; vg1 17:48 EXCEDRIN; vg1 17:48 Excedrin PM; vg1 17:48 Ibuprofen; vg1 17:48 NSAIDS; vg1 17:48 Toradol; vg1 - PMHx: 17:48 Anxiety; Depression; Hypertension; vg1 - PSHx: 17:48 section; vg1 - Immunization history:: Client reports having NOT received the Covid vaccine. - Social history:: Smoking status: Patient denies any tobacco usage or history of. Screenin:56 Abuse screen: Denies threats or abuse. Denies injuries from another. Nutritional ss screening: No deficits noted. Tuberculosis screening: Never had TB. Fall Risk None identified. Assessment: 18:55 General: Appears in no apparent distress. comfortable, Behavior is calm, cooperative. ss General: s/s began 6 days ago. . Pain: Complains of pain in right eye Pain currently is 4 out of 10 on a pain scale. Neuro: Level of Consciousness is awake, alert, obeys commands, Oriented to person, place, time, situation, Outboard Motor Tester are equal bilaterally Speech is normal. Cardiovascular: Capillary refill < 3 seconds is brisk in bilateral fingers Patient's skin is warm and dry. Respiratory: Respiratory effort is even, unlabored, Respiratory pattern is regular, symmetrical. GI: Patient currently denies diarrhea, nausea, vomiting. EENT: Sclera/Cornea Reddened sclera noted to R lateral eye. Nares are clear Oral mucosa is moist. Throat is clear. Derm: Skin is intact, is healthy with good turgor, Skin is dry, Skin is pink, warm \T\ dry. normal. Derm: small area of redness and swelling noted to R outer canthus. 18:57 Reassessment: Awaiting shot time prior to discharge. ss Vital Signs: 17:41 BP 180 / 71; Pulse 78; Resp 18; Temp 97.6; Pulse Ox 100% ; Weight 114.76 kg; vg1 ED Course: 17:21 Patient arrived in ED. ds1 17:48 Triage completed. vg1 17:48 Arm band placed on. vg1 18:27 Jayden Tena NP is PHCP. pm1 18:27 Melchor Sarmiento MD is Attending Physician. pm1 18:56 Patient has correct armband on for positive identification. Bed in low position. Call ss light in reach. 18:56 No provider procedures requiring assistance completed. Patient did not have IV access ss during this emergency room visit. 19:01 Kaia Jett, MANDI is Primary Nurse. ss Administered Medications: 18:44 Not Given (Physician Discretion): Bactrim (trimethoprim-sulfamethoxazole) (160 mg-800 pm1 mg (DS) 1 tablet PO once 18:56 Drug: Tetanus-Diphtheria Toxoid Adult 0.5 ml {Dairy Chemist: Yoyo. Exp: ss 01/24/2023. Lot #: [id number]. } Route: IM; Site: left deltoid; 19:10 Follow up: Response: No adverse reaction ss 18:56 Drug: Clindamycin 600 mg Route: IM; Site: left gluteus; ss 19:10 Follow up: Response: No adverse reaction ss Outcome: 18:41 Discharge ordered by . pm1 18:56 Condition: good 18:56 Instructed on discharge instructions, follow up and referral plans. medication usage. 19:09 Discharged to home ambulatory. 19:10 Patient left the ED. Signatures: Rohini Garsia ds1 Kaia Jett RN RN ss Jayden Tena NP VEIN PUMPER pm1 Fannie Lainez RN RN vg1
[2021-08-26] MEDS ORDERED: CLINDAMYCIN IV 150 MG/ML (4 mL) VIAL ONE (18:46)
[2021-08-26 19:25] VITALS: BP 180/71; TEMP 97.6; O2SAT 100
== END 2021-08-26 19:10 | disposition home or self-care (01) ==
LOC: ER 17:19
DX: S00.86XA Insect bite (nonvenomous) of other part of head, initial encounter (principal); Z23 Encounter for immunization; I10 Essential (primary) hypertension; Z88.5 Allergy status to narcotic agent; Z88.6 Allergy status to analgesic agent; Z88.8 Allergy status to other drugs, medicaments and biological substances
CPT/HCPCS: 90471; 90714; 96372; 99283; S0077

== ENCOUNTER 2021-11-18 15:09 | Emergency (ER) | payer OTHER ==
--- OUTSIDE RECORDS SUMMARY | 2021-11-18 15:14 | XMS REPORT | Continuity of Care Document ---
:1960 Author Organization [facility] t Address [address] [place] [address] Care Team Providers Name Role Phone Mamta ROMAN, B Attending Clinician Akinsipe WHCNP, C Attending Clinician AKINSIPE, C Attending Clinician Unavailable Sean SQL SSRS SSIS DEVELOPER, G Attending Clinician Doctor Unassigned, Name Attending Clinician Unavailable Garcia HIRSCH Attending Clinician Unavailable Mayela PAC, S Attending Clinician Visit, Nurse Attending Clinician Unavailable Ananda VENEER SPLICER, R Attending Clinician Johnathan COLUNGA Attending Clinician Unavailable JOANA Admitting Clinician Unavailable Payers Payer Name Policy Type Policy Number Effective Date Expiration Date S nacho MEDICARE PART A [id number] 2020 \\T\\ B 00:00:00 Advance Directives Directive Decision Effective Termination Comments Source Date Date Healthcare Agents on N/A Univ ersity FileNameRelationshipHealthcare [facility] Agent [facility] RelationshipCommunication[facility] Care [phone] (Mobile) Problems Condition Condition Condition Status Onset Resolution Last Treating Co mments Source Name Details Category Date Date Treatment Clinician Date Anal wart Anal wart Disease Active 2019-09 Uni vers 2-04 ity of 00:00: [address] Vaginal Vaginal Disease Active 2019- Univers yeast yeast 8-21 ity of infection infection 00:00: [address] Vaginal Vaginal Disease Active 2019- Univers itching itching 8-21 ity of 00:00: [place] [facility] Urinary Urinary Disease Active Univers urgency urgency 8-21 ity of 00:00: [place] [facility] Screen for Screen for Disease Active 2018- U nivers STD STD 4-24 it[place] of (sexually [place] transmit[place] dical d disease) d disease) Br anch Vaginal Vaginal Disease Active Univers discomfort discomfort 4-24 it y of 00:00: [place] [facility] Contracept Contracept Disease Active 2018- U nivers roz roz 3-14 it[place] of management management 00:[place]: [place] [facility] Well woman Well woman Disease Active U nivers exam exam 3-14 ity of 00:00: [place] [facility] Contracept Contracept Disease Active 2018- U nivers roz roz 3-14 ity of management management 00:[place]: [place] [facility] [place] Menopause Menopause Disease Active Uni vers 6-25 ity of 00:00: [place] [facility] Morbid Morbid Disease Active Univers obesity obesity 6-25 ity of 00:00: [place] [facility] Essential Essential Disease Active Uni vers hypertensi hypertensi 6-25 it y of on, benign on, benign 00:00: [place] [facility] Generalize Generalize Disease Active U [...] Uni vers orothiaz ty to See comments 4- hyponatre ity of isabel adverse 00:00: el [place] reaction 00 Medical [facility] HYDROCHL DRUG Active Unknown-Cmnt Un rohit OROTHIAZ INGREDI 4 ity of ISABEL 00:00: [place] 00 [facility] Branch Aspirin- Propensi Active Swelling Univ ers Acetamin ty to 04-28 ity of ophen-Ca adverse 00:00: [place] ffeine reaction [facility] Ibuprofe Propensi Active Swelling Univ ers n ty to 04-28 ity of adverse 00:00: [place] reaction 00 [facility] s Branch ASPIRIN- DRUG [facility] AC[facility]AM[facility] 04-28 ity of OPHEN-CA 00:00: [place] FFEINE [facility] IBUPROFE DRUG Active [facility] N INGREDI 04-28 ity of 00:00: [place] [address] [place] [address] Social History Social Habit Start Date Stop Date Quantity Comments Source Exposure to Not sure [facility] SARS-CoV-2 [facility] (event) [place] Tobacco use and 2020-09-07 2020-09-07 Never used Universit y of exposure 00:00:00 00:00:00 [facility] Alcohol intake 2020-09-07 2020-09-07 Current drinker of Un iversity of 00:00:00 00:00:00 alcohol (finding) [facility] edical [place] Alcohol Comment 2015-03-14 2015-03-14 occasionally Univers ity of 00:00:00 00:00:00 [facility] Sex Ass[birth year] At [birth year] Universit y of 00:00:00 00:00:00 [facility] Smoking Status Start Date Stop Date Source Never smoker [facility] Medications Ordered Filled Start Stop Current Ordering Indication Dosage Frequency Signature Comments Components Source Medication Medication Date Date Medication? Clinician (SIG) Name Name iopamidol 2020- No [id number] 120mL 120 mL, Univers (ISOVUE 05-15 Intravenou ity o f 300-500 mL) 07:05: 07:05 s, ONCE, 1 [place] injection 00 :00 dose, Mon Medic al 120 mL 05/15/21 at Branch 0215, Routine cloNIDine 2020- No .1mg 0.1 mg, Univ ers (CATAPRES) 05-15 Oral, ity of tablet 0.1 05:30: 05:46 ONCE, 1 [place] mg 00 :00 dose, [facility] Medical 05/15/21 at Branch 0030, STAT morpHINE 2020- No 4mg 4 mg, Slow Un rohit injection 4 05-15 IV Push, ity of mg 03:45: 03:17 ONCE, 1 [place] 00 :00 dose, [facility] 05/14/21 at Branch 2245, STAT hydrALAZINE 2019-09 2020- No 50mg 50 mg, Uni vers [...] No .1mg 0.1 mg, Univ ers (CATAPRES) 208-27 Oral, ity of tablet 0.1 01:45: 01:08 ONCE, 1 [place] as mg 00 :00 dose, Sat08/26/20 at Branch 1945, STAT PAROXETINE 2019-09 Yes 1 daily Univ ers HCL 20 MG 2-04 ity of ORAL TAB 22:23: [place] [address] Medical Branch metoprolol 2019-09 Yes 50mg Take 50 mg U nivers tartrate 2-04 by mouth 2 ity o f (LOPRESSOR) 22:23: (two) [place] 50 mg 39 times Medical tablet daily. Branch hydrOXYzine 2019-09 Yes 25mg Take 25 mg Univers (ATARAX) 25 2-04 by mouth ity of mg tablet 22:23: every 6 [place] [address] (six) Medical hours. Branch hydralAZINE 2019-09 Yes 50mg Take 50 mg Univers 50 mg 2-04 by mouth 2 ity of tablet 22:23: (two) [place] 39 times Medical daily. Branch mirtazapine 2019-09 Yes 30mg Take 30 mg Univers 30 mg 2-04 by mouth ity of tablet 22:23: at [place] [address] bedtime. Medical Branch busPIRone 2019-09 Yes 10mg Take 10 mg Un rohit 10 mg 2-04 by mouth 2 ity of tablet 22:23: (two) [place] [address] times Medical daily. Branch PAROXETINE 2019-09 Yes 1 daily Univ ers HCL 20 MG 2-04 ity of ORAL TAB 22:23: [place] [address] Medical Branch metoprolol 2019-09 Yes 50mg Take 50 mg U nivers tartrate 2-04 by mouth 2 ity o f (LOPRESSOR) 22:23: (two) [place] 50 mg 39 times Medical tablet daily. [...] by mouth ity of tablet 22:23: at [place] [address] bedtime. Medical Branch busPIRone 2019- Yes 10mg [...] by mouth ity of tablet 22:23: at [place] [address] bedtime. Medical Branch busPIRone 2019- Yes 10mg [...] ity of mg tablet 22:23: every 6 [place] [address] (six) Medical hours. Branch hydralAZINE 2019-09 Yes 50mg Take 50 mg Univers 50 mg 2-04 by mouth 2 ity of tablet 22:23: (two) [place] 39 times Medical daily. Branch mirtazapine 2019-09 Yes 30mg Take 30 mg Univers 30 mg 2-04 by mouth ity of tablet 22:23: at [place] [address] bedtime. Medical Branch busPIRone 2019- Yes 10mg [...] ity of mg tablet 22:23: every 6 [place] [address] (six) Medical hours. Branch hydralAZINE 2019- Yes 50mg Take 50 mg Univers 50 mg 2-04 by mouth 2 ity of tablet 22:23: (two) [place] 39 times Medical daily. Branch mirtazapine 2019- Yes 30mg Take 30 mg Univers 30 mg 2-04 by mouth ity of tablet 22:23: at [place] [address] bedtime. Medical Branch busPIRone 2019- Yes 10mg [...] ity of mg tablet 22:23: every 6 [place] [address] (six) Medical hours. Branch hydralAZINE 2019-09 Yes 50mg Take 50 mg Univers 50 mg 2-04 by mouth 2 ity of tablet 22:23: (two) [place] 39 times Medical daily. Branch mirtazapine 2019-09 Yes 30mg Take 30 mg Univers 30 mg 2-04 by mouth ity of tablet 22:23: at [place] [address] bedtime. Medical Branch busPIRone 2019- Yes 10mg [...] ity of mg tablet 22:23: every 6 [place] [address] (six) Medical hours. Branch hydralAZINE 2019- Yes [...] 22:23: (two) [place] 39 times Medical daily. [place] clotrimazol 2019-09 Yes [id number] 1{appli Insert 1 Univers e 1 % 2-04 cator} Applicator ity of vaginal 00:00: into [place] cream 00 vagina at Medical bedtime. [place] clotrimazol 2019-09 Yes [id number] 1{appli Insert 1 Univers e 1 % 2-04 cator} Applicator ity of vaginal 00:00: into [place] cream 00 vagina at Medical bedtime. [place] clotrimazol 2019-09 Yes [id number] 1{appli Insert 1 Univers e 1 % 2-04 cator} Applicator ity of vaginal 00:00: into [place] cream 00 vagina at Medical bedtime. [place] clotrimazol 2019-09 Yes [id number] 1{appli Insert 1 Univers e 1 % 2-04 cator} Applicator ity of vaginal 00:00: into [place] cream 00 vagina at Medical bedtime. [place] clotrimazol 2019-09 Yes [id number] 1{appli Insert 1 Univers e 1 % 2-04 cator} Applicator ity of vaginal 00:00: into [place] cream 00 vagina at Medical bedtime. [place] clotrimazol 2019-09 Yes [id number] 1{appli Insert 1 Univers e 1 % 2-04 cator} Applicator ity of vaginal 00:00: into [place] cream 00 vagina at Medical bedtime. [place] clotrimazol 2019-09 Yes [id number] 1{appli Insert 1 Univers e 1 % 2-04 cator} Applicator ity of vaginal 00:00: into [place] cream 00 vagina at Medical bedtime. [place] clotrimazol 2019-09 Yes [id number] 1{appli Insert 1 Univers e 1 % 2-04 cator} Applicator ity of vaginal 00:00: into [place] cream 00 vagina at Medical bedtime. [place] clotrimazol 2019-09 Yes [id number] 1{appli Insert 1 Univers e 1 % 2-04 cator} Applicator ity of vaginal 00:00: into [place] cream 00 vagina at Medical bedtime. [place] clotrimazol 2019-09 Yes [id number] 1{appli Insert 1 Univers e 1 % 2-04 cator} Applicator ity of vaginal 00:00: into [place] cream 00 vagina at Medical bedtime. [place] clotrimazol 2019-09 Yes [id number] 1{appli Insert 1 Univers e 1 % 2-04 cator} Applicator ity of vaginal 00:00: into [place] cream 00 vagina at Medical bedtime. [place] clotrimazol 2019-09 Yes [id number] 1{appli Insert 1 Univers e 1 % 2-04 cator} Applicator ity of vaginal 00:00: into [place] cream 00 vagina at Medical bedtime. [place] clotrimazol 2019-09 Yes [id number] 1{appli Insert 1 Univers e 1 % 2-04 cator} Applicator ity of vaginal 00:00: into [place] cream 00 vagina at Medical bedtime. [place] clotrimazol 2019-09 Yes [id number] 1{appli Insert 1 Univers e 1 % 2-04 cator} Applicator ity of vaginal 00:00: into [place] cream 00 vagina at Medical bedtime. [place] clotrimazol 2019-09 Yes [id number] 1{appli Insert 1 Univers e 1 % 2-04 cator} Applicator ity of vaginal 00:00: into [place] cream 00 vagina at Medical bedtime. [place] Miscellaneo 2019-0 Yes [id number] QHS X U nivers [facility] 8-21 7days ity of Supply Misc 00:00: [place] 00 Medical Branch Miscellaneo 2019-0 Yes [id number] QHS X U nivers [facility] 8-21 7days ity of Supply Misc 00:00: [place] 00 [facility] Branch Miscellaneo 2019-0 Yes [id number] QHS X U nivers [facility] 8-21 7days ity of Supply Misc 00:00: [place] 00 Medical Branch Miscellaneo 2019-0 Yes [id number] QHS X U nivers [facility] 8-21 7days ity of Supply Misc 00:00: [place] 00 [facility] Branch Miscellaneo 2019-0 Yes [id number] QHS X U nivers [facility] 8-21 7days ity of Supply Misc 00:00: [place] [facility] Miscellaneo 2019-0 Yes [id number] QHS X U nivers [facility] 8-21 7days ity of Supply Misc 00:00: [place] 00 [facility] Branch Miscellaneo 2019-0 Yes [id number] QHS X U nivers us Medical 8-21 7days ity of Supply Misc 00:00: [place] 00 [facility] Branch Miscellaneo 2019-0 Yes [id number] QHS X U nivers us Medical 8-21 7days ity of Supply Misc 00:00: [place] 00 Medical Branch Miscellaneo 2019-0 Yes [id number] QHS X U nivers us Medical 8-21 7days ity of Supply Misc 00:00: [place] 00 Medical Branch Miscellaneo 2019-0 Yes [id number] QHS X U nivers us Medical 8-21 7days ity of Supply Misc 00:00: [place] 00 Medical Branch Miscellaneo 2019-0 Yes [id number] QHS X U nivers us Medical 8-21 7days ity of Supply Misc 00:00: [place] 00 Medical Branch Miscellaneo 2019-0 Yes [id number] QHS X U nivers us Medical 8-21 7days ity of Supply Misc 00:00: [place] 00 Medical Branch Miscellaneo 2019-0 Yes [id number] QHS X U nivers us Medical 8-21 7days ity of Supply Misc 00:00: [place] 00 Medical Branch Miscellaneo 2019-0 Yes [id number] QHS X U nivers us Medical 8-21 7days ity of Supply Misc 00:00: [place] 00 Medical Branch Miscellaneo 2019-0 Yes [id number] QHS X U nivers us Medical 8-21 7days ity of Supply Misc 00:00: [place] 00 Medical Branch Miscellaneo 2019-0 Yes [id number] QHS X U nivers us Medical 8-21 7days ity of Supply Misc 00:00: [place] 00 Medical Branch Miscellaneo 2019-0 Yes [id number] QHS X U nivers us Medical 8-21 7days ity of Supply Misc 00:00: [place] 00 Medical Branch Miscellaneo 2019-0 Yes [id number] QHS X U nivers us Medical 8-21 7days ity of Supply Misc 00:00: [place] 00 Medical Branch Miscellaneo 2019-0 Yes [id number] QHS X U nivers us Medical 8-21 7days ity of Supply Misc 00:00: [place] 00 Medical Branch Miscellaneo 2019-0 Yes [id number] QHS X U nivers us Medical 8-21 7days ity of Supply Misc 00:00: [place] 00 [facility] Branch Miscellaneo 2019-0 Yes [id number] QHS X U nivers us Medical 8-21 7days ity of Supply Misc 00:00: [place] 00 [facility] Branch Miscellaneo 2019-0 Yes [id number] QHS X U nivers us Medical 8-21 7days ity of Supply Misc 00:00: [place] 00 Medical Branch Miscellaneo 2019-0 Yes [id number] QHS X U nivers us Medical 8-21 [...] mouth 2 ity of tablet 21:09: (two) [place] 48 times Medical daily. Branch busPIRone 2019-0 [...] MG 3-14 ity of ORAL TAB 21:09: [place] 31 Medical Branch metoprolol 2019-0 Yes 50mg Take 50 mg U nivers tartrate 3-14 by mouth 2 ity o f (LOPRESSOR) 21:09: (two) [place] 50 mg 31 times Medical tablet daily. Branch hydrOXYzine 2019-0 Yes 25mg Take 25 mg Univers (ATARAX) 25 3-14 by mouth ity of mg tablet 21:09: every 6 [place] 31 (six) Medical hours. Branch hydralAZINE 2019-0 Yes 50mg Take 50 mg Univers 50 mg 3-14 by mouth 2 ity of tablet 21:09: (two) [place] 31 times Medical daily. Branch mirtazapine 2019-0 Yes 30mg Take 30 mg Univers 30 mg 3-14 by mouth ity of tablet 21:09: at [place] [address] bedtime. Medical Branch PAROXETINE 2019-0 Yes 1 daily Univ ers HCL 20 MG 3-14 ity of ORAL TAB 21:09: [place] [address] Medical Branch metoprolol 2019-0 Yes 50mg Take 50 mg U nivers tartrate 3-14 by mouth 2 ity o f (LOPRESSOR) 21:09: (two) [place] 50 mg 31 times Medical tablet daily. Branch hydrOXYzine 2019-0 Yes 25mg Take 25 mg Univers (ATARAX) 25 3-14 by mouth ity of mg tablet 21:09: every 6 [place] 31 (six) Medical hours. Branch hydralAZINE 2019-0 Yes 50mg Take 50 mg Univers 50 mg 3-14 by mouth 2 ity of tablet 21:09: (two) [place] 31 times Medical daily. Branch mirtazapine 2019-0 Yes 30mg Take 30 mg Univers 30 mg 3-14 by mouth ity of tablet 21:09: at [place] [address] bedtime. Medical Branch PAROXETINE 2019-0 Yes 1 daily Univ ers HCL 20 MG 3-14 ity of ORAL TAB 21:09: [place] [address] Medical Branch metoprolol 2019-0 Yes 50mg Take 50 mg U nivers tartrate 3-14 by mouth 2 ity o f (LOPRESSOR) 21:09: (two) [place] 50 mg 31 times Medical tablet daily. Branch hydrOXYzine 2019-0 Yes 25mg Take 25 mg Univers (ATARAX) 25 3-14 by mouth ity of mg tablet 21:09: every 6 [place] [address] (six) Medical hours. Branch hydralAZINE 2019-0 Yes 50mg Take 50 mg Univers 50 mg 3-14 by mouth 2 ity of tablet 21:09: (two) [place] 31 times Medical daily. Branch mirtazapine 2019-0 Yes 30mg Take 30 mg Univers 30 mg 3-14 by mouth ity of tablet 21:09: at [place] [address] bedtime. Medical Branch PAROXETINE 2019-0 Yes 1 daily Univ ers HCL 20 MG 3-14 ity of ORAL TAB 21:09: [place] [address] Medical Branch metoprolol 2019-0 Yes 50mg Take 50 mg U nivers tartrate 3-14 by mouth 2 ity o f (LOPRESSOR) 21:09: (two) [place] 50 mg 31 times Medical tablet daily. Branch hydrOXYzine 2019-0 Yes 25mg Take 25 mg Univers (ATARAX) 25 3-14 by mouth ity of mg tablet 21:09: every 6 [place] [address] (six) Medical hours. Branch hydralAZINE 2019-0 Yes 50mg Take 50 mg Univers 50 mg 3-14 by mouth 2 ity of tablet 21:09: (two) [place] 31 times Medical daily. Branch mirtazapine 2019-0 Yes 30mg Take 30 mg Univers 30 mg 3-14 by mouth ity of tablet 21:09: at [place] [address] bedtime. Medical Branch PAROXETINE 2019-0 Yes 1 daily Univ ers HCL 20 MG 3-14 ity of ORAL TAB 21:09: [place] [address] Medical Branch metoprolol 2019-0 Yes 50mg Take 50 mg U nivers tartrate 3-14 by mouth 2 ity o f (LOPRESSOR) 21:09: (two) [place] 50 mg 31 times Medical tablet daily. Branch hydrOXYzine 2019-0 Yes 25mg Take 25 mg Univers (ATARAX) 25 3-14 by mouth ity of mg tablet 21:09: every 6 [place] [address] (six) Medical hours. Branch hydralAZINE 2019-0 Yes 50mg Take 50 mg Univers 50 mg 3-14 by mouth 2 ity of tablet 21:09: (two) [place] 31 times Medical daily. Branch mirtazapine 2019-0 Yes 30mg Take 30 mg Univers 30 mg 3-14 by mouth ity of tablet 21:09: at [place] [address] bedtime. Medical Branch PAROXETINE 2019-0 Yes 1 daily Univ ers HCL 20 MG 3-14 ity of ORAL TAB 21:09: [place] [address] Medical Branch metoprolol 2019-0 Yes 50mg Take 50 mg U nivers tartrate 3-14 by mouth 2 ity o f (LOPRESSOR) 21:09: (two) [place] 50 mg 31 times Medical tablet daily. Branch hydrOXYzine 2019-0 Yes 25mg Take 25 mg Univers (ATARAX) 25 3-14 by mouth ity of mg tablet 21:09: every 6 [place] [address] (six) Medical hours. Branch hydralAZINE 2019-0 Yes 50mg Take 50 mg Univers 50 mg 3-14 by mouth 2 ity of tablet 21:09: (two) [place] 31 times Medical daily. Branch mirtazapine 2019-0 Yes 30mg Take 30 mg Univers 30 mg 3-14 by mouth ity of tablet 21:09: at [place] [address] bedtime. Medical Branch PAROXETINE 2019-0 Yes 1 daily Univ ers HCL 20 MG 3-14 ity of ORAL TAB 21:09: [place] [address] Medical Branch metoprolol 2018-0 Yes 50mg Take 50 mg U nivers tartrate 3-14 by mouth 2 ity o f (LOPRESSOR) 21:09: (two) [place] 50 mg 31 times Medical tablet daily. Branch hydrOXYzine 0 Yes 25mg Take 25 mg Univers (ATARAX) 25 3-14 by mouth ity of mg tablet 21:09: every 6 [place] [address] (six) Medical hours. Branch hydralAZINE 2018-0 Yes 50mg Take 50 mg Univers 50 mg 3-14 by mouth 2 ity of tablet 21:09: (two) [place] 31 times Medical daily. Branch mirtazapine 2019-0 Yes 30mg Take 30 mg Univers 30 mg 3-14 by mouth ity of tablet 21:09: at [place] [address] bedtime. Medical Branch PAROXETINE 2019-0 Yes 1 daily Univ ers HCL 20 MG 3-14 ity of ORAL TAB 21:09: [place] [address] Medical Branch metoprolol 2019-0 Yes 50mg Take 50 mg U nivers tartrate 3-14 by mouth 2 ity o f (LOPRESSOR) 21:09: (two) [place] 50 mg 31 times Medical tablet daily. Branch hydrOXYzine 2019-0 Yes 25mg Take 25 mg Univers (ATARAX) 25 3-14 by mouth ity of mg tablet 21:09: every 6 [place] [address] (six) Medical hours. Branch hydralAZINE 2019-0 Yes 50mg Take 50 mg Univers 50 mg 3-14 by mouth 2 ity of tablet 21:09: (two) [place] [address] times Medical daily. Branch mirtazapine 2019-0 Yes 30mg Take 30 mg Univers 30 mg 3-14 by mouth ity of tablet 21:09: at [place] [address] bedtime. Medical Branch cloniDINE 2018-0 Yes .1mg [...] Immunizations Ordered Filled Immunization Date Status Comments [facility] e Immunization Name Name Influenza Virus 2020-08-26 [...] y of Vaccine Quad .5 mL 00:00:00 [facility] IM 6+ [place] Branch Vital Signs Vital Name Observation Time Observation Value Comments Source Systolic blood 2021-05-15 08:20:00 144 mm[Hg] Univer sity of pressure [facility] Diastolic blood 2021-05-15 08:20:00 71 mm[Hg] Unive rsity of pressure [facility] Heart rate 2021-05-15 08:20:00 61 /min [facility] Body temperature 2021-05-15 08:20:00 36.89 [place] Univ ersity of [facility] Respiratory rate 2021-05-15 08:20:00 16 /min Univ ersity of [facility] Oxygen saturation in 2021-05-15 08:20:00 99 /min [facility] Arterial blood by [facility] Pulse oximetry Branch Systolic blood 2020-09-08 01:35:00 148 mm[Hg] Univer sity of pressure [facility] Diastolic blood 2020-09-08 01:35:00 75 mm[Hg] Unive rsity of pressure [facility] Heart rate 2020-09-08 01:35:00 81 /min Universi ty of [place] [facility] Respiratory rate 2020-09-08 01:35:00 18 /min Univ ersity of [place] [facility] Oxygen saturation in 2020-09-08 01:35:00 97 /min University of Arterial blood by [facility] Pulse oximetry Branch Body temperature 2020-09-07 22:17:00 [...] 97 /min University of Arterial blood by [facility] Pulse oximetry Branch Body temperature 2020-09-07 22:17:00 [...] 2020-09-07 20:44:00 43.37 kg/m2 Universi ty of [facility] Branch Systolic blood 2020-09-07 22:01:00 197 mm[Hg] Univer sity of pressure [facility] Branch Diastolic blood 2020-09-07 22:01:00 94 mm[Hg] Unive rsity of pressure [facility] Heart rate 2020-09-07 22:01:00 89 /min Universi ty of [facility] Body temperature 2020-09-07 20:44:00 36.33 Mariia Univ ersity of [facility] Branch Respiratory rate 2020-09-07 20:44:00 16 /min Univ ersity of [facility] Body height 2020-09-07 20:44:00 165.1 cm Universi ty of [facility] Body weight 2020-09-07 20:44:00 118.207 kg Universi ty of [facility] BMI 2020-09-07 20:44:00 43.37 kg/m2 Universi ty of [facility] Systolic blood 2020-08-27 02:06:53 149 mm[Hg] Univer sity of pressure [facility] Branch Diastolic blood 2020-08-27 02:06:53 79 mm[Hg] Unive rsity of pressure [facility] Heart rate 2020-08-27 02:06:53 67 /min Universi ty of [facility] Body temperature 2020-08-27 02:06:53 36.5 Mariia Univ ersity of [facility] Respiratory rate 2020-08-27 02:06:53 15 /min Univ ersity of [facility] Oxygen saturation in 2020-08-27 02:06:53 98 /min University of Arterial blood by [facility] Pulse oximetry Branch Body weight 2020-08-26 23:36:00 116.574 kg Universi ty of [facility] Branch BMI 2020-08-26 23:36:00 42.77 kg/m2 Universi ty of [facility] Systolic blood 2020-08-26 22:10:00 177 mm[Hg] Univer sity of pressure [facility] Branch Diastolic blood 2020-08-26 22:10:00 88 mm[Hg] Unive rsity of pressure [facility] Heart rate 2020-08-26 22:08:00 72 /min Universi ty of [facility] Body temperature 2020-08-26 22:08:00 36.39 Mariia Univ ersity of [facility] Branch Respiratory rate 2020-08-26 22:08:00 16 /min [facility] Body height 2020-08-26 22:08:[address] [facility] Body weight 2020-08-26 22:08:[address] [facility] BMI 2020-08-26 22:08:00 42.83 kg/m2 Universi [facility] Systolic blood 2019-05-13 21:11:00 142 mm[Hg] Univer sity of pressure [facility] Diastolic blood 2019-05-13 21:11:00 78 mm[Hg] Unive rsity of [facility] Systolic blood 2019-05-13 20:20:00 173 mm[Hg] Univer sity of [facility] Branch Diastolic blood 2019-05-13 20:20:00 88 mm[Hg] Unive [facility] Heart rate 2019-05-13 20:15:00 75 /min [facility] Body temperature 2019-05-13 20:15:00 36.28 Mariia [facility] Body height 2019-05-13 20:15:[address] [facility] Body weight 2019-05-13 20:15:00 116.234 kg [facility] BMI 2019-05-13 20:15:00 42.64 kg/m2 [facility] Procedures Procedure Date / Time Performing Clinician Source Performed CT ABDOMEN PELVIS W 2021-05-15 07:09:39 Suresh Oleary [facility] COVID-19 (ID NOW RAPID 2021-05-15 03:17:00 Suresh Oleary [facility] TESTING) Medical Branch PHOSPHORUS 2021-05-15 03:16:00 Suresh Oleary [facility] Branch LIPASE 2021-05-15 03:16:00 Suresh Oleary [facility] Branch MAGNESIUM 2021-05-15 03:16:00 Suresh Oleary [facility] TROPONIN I 2021-05-15 03:16:00 Suresh Oleary [facility] COMP. METABOLIC PANEL 2021-05-15 03:16:00 Suresh Oleary [facility] ([id number]) Medical Branch CBC WITH DIFF 2021-05-15 03:16:00 Suresh Oleary [facility] D-DIMER 2021-05-15 03:16:00 Mamta [facility] URINALYSIS 2021-05-15 03:16:00 Mamta [facility] N-TERMINAL PRO-BNP 2021-05-15 03:16:00 Suresh Oleary [facility] XR CHEST 2 VW 2021-05-15 02:55:22 Mamta Suresh Israel [facility] CONSENT/REFUSAL FOR 2021-05-15 02:26:49 Doctor Cornelius, [facility] DIAGNOSIS AND TREATMENT [facility] [place] CONSENT/REFUSAL FOR 2020-09-07 22:14:49 Doctor Cornelius [facility] DIAGNOSIS AND TREATMENT [facility] ASSIGNMENT OF BENEFITS 2020-09-07 20:23:20 Doctor [facility] [place] XR CHEST 1 VW 2020-08-27 00:41:33 Carmenza Mckinley [facility] TROPONIN I 2020-08-27 00:34:00 Carmenza Mckinley [facility] COMP. METABOLIC PANEL 2020-08-27 00:34:00 Carmenza Mckinley [facility] ([id number]) [facility] CBC WITH DIFF 2020-08-27 00:34:00 Carmenza Mckinley [facility] PROTHROMBIN TIME / INR 2020-08-27 00:34:00 Carmenza Mckinley [facility] ACTIVATED PARTIAL THRMPLAS 2020-08-27 00:34:00 [facility] 2020-08-27 00:34:00 Carmenza Mckinley [facility] NOTICE OF PRIVACY 2020-08-26 23:26:21 Doctor Cornelius, [facility] PRACTICES [facility] [place] CONSENT/REFUSAL FOR 2020-08-26 23:25:28 Doctor Cornelius [facility] DIAGNOSIS AND TREATMENT [facility] URINE CULTURE 2020-08-26 22:59:00 Key Richardson [facility] FLU VACC ([phone]), 6+ 2020-08-26 22:48:43 Key Richardson [facility] MONTHS, IM, QUAD [facility] POCT URINALYSIS W/O 2020-08-26 22:15:00 Key Richardson [facility] [place] SPECIFIC GRAVITY [facility] POCT URINALYSIS 2019-05-13 20:43:00 Devika Hirsch [facility] NO SHOW OR MISSED 2019-05-13 20:00:36 Doctor Unassigned, Univers [facility] APPOINTMENT POLICY [facility] ACKNOWLEDGEMENT Encounters Start End Encounter Admission Attending Care Care Encounter Source Date/Time Date/Time Type Type Clinicians Facility Department ID 2021-07-24 Emergency [facility] [id number] Univers 17:15:12 ity of [facility] 2021-07-22 Emergency [facility] [id number] Univers 11:44:33 ity of [facility] 2021-07-22 Emergency [facility] [id number] Univers 09:23:58 ity of [facility] 2021-05-14 2021-05-15 Emergency Mamta, TRAU[place] [id number] Univers 21:27:00 03:51:00 Suresh Wood CENTER 350.1.13.10 [id number] [address] 2021-01-23 2021-01-23 [facility] 1.2.840.114 [id number] Univers 13:39:55 23:59:00 Encounter Key C SPECIALTY 350.1.13.10 [place] [id number] [facility] [place] [id number] [place] 2021-01-23 2021-01-23 [facility] 1.2.840.114 [id number] 13:39:55 23:59:00 Encounter Key C SPECIALTY 350.1.13.10 CARE 4.2.7.2.686 CENTER AT [id number] [address] 2021-01-23 2021-01-23 Outpatient R [facility] [id number] 8P-20 Univers 09:15:00 09:15:00 KEY [id number] ity o f [facility] 2021-01-23 2021-01-23 Outpatient R ERIKSIPE, [facility] [id number] Univers 00:00:00 00:00:00 KEY ity o f [facility] 2021-01-23 2021-01-23 Telephone [facility] 1.2.840.114 [id number] [facility] 00:00:00 00:00:00 Key C [place] 350.1.13.10 ity of REGIONAL 4.2.7.2.686 [place] as MATERNAL [id number] [facility] ical & CHILD [address] [place] [address] 2021-01-23 2021-01-23 Telephone [facility] 1.2.840.114 [id number] 00:00:00 00:00:00 Key C [place] 350.1.13.10 REGIONAL 4.2.7.2.686 MATERNAL [id number] & CHILD [address] [place] [address] 2021-01-13 2021-01-13 Outpatient R AKINSIPE, [facility] [id number] 8P-20 Univers 13:15:00 13:15:00 KEY [id number] ity o [facility] 2021-01-13 2021-01-13 Outpatient R AKINSIPE, [facility] [id number] Univers 13:15:00 13:15:00 KEY ity o [facility] 2021-01-02 2021-01-02 Telephone [facility] 1.2.840.114 [id number] [facility] 00:00:00 00:00:00 Key C [place] 350.1.13.10 ity of REGIONAL 4.2.7.2.686 [place] as MATERNAL [id number] [facility] ical & CHILD [address] [place] [address] 2021-01-02 2021-01-02 Telephone [facility] 1.2.840.114 [id number] 00:00:00 00:00:00 Key C [place] 350.1.13.10 REGIONAL 4.2.7.2.686 MATERNAL [id number] & CHILD [address] [place] [address] 2020-12-07 2020-12-07 Outpatient R AKINSIPE, [facility] [id number] 8P-[id number] Univers 15:00:00 15:00:00 KEY [id number] ity o f [facility] 2020-12-07 2020-12-07 Outpatient R AKINSIPE, [facility] [id number] Univers 15:00:00 15:00:00 KYE ity o f [facility] 2020-12-07 2020-12-07 Outpatient R AKINSIPE, [facility] [id number] Univers 15:00:00 15:00:00 KEY ity o [facility] 2020-11-23 2020-11-23 Outpatient R AKINSIPE, [facility] [id number] 8P-20 Univers 14:15:00 14:15:00 KEY [id number] ity o [facility] 2020-11-23 2020-11-23 Outpatient R AKINSIPE, [facility] [id number] Univers 00:00:00 00:00:00 KEY ity o f [facility] 2020-11-11 2020-11-11 Telephone [facility] 1.2.840.114 [id number] Univers 00:00:00 00:00:00 Key C [place] 350.1.13.10 ity of REGIONAL 4.2.7.2.686 [place] as MATERNAL [id number] Med ical & CHILD [address] [place] [address] 2020-11-11 2020-11-11 Telephone [facility] 1.2.840.114 [id number] 00:00:00 00:00:00 Key C [place] 350.1.13.10 REGIONAL 4.2.7.2.686 MATERNAL [id number] & CHILD [address] [place] [address] 2020-10-17 2020-10-17 Letter [facility] [id number] Univers 00:00:00 00:00:00 (Out) Key C [place] 350.1.13.10 ity of REGIONAL 4.2.7.2.686 [place] as MATERNAL [id number] Med ical & CHILD [address] [facility] 2020-10-17 2020-10-17 Letter Eriksipe, [facility] [id number] 00:00:00 00:00:00 (Out) Key Ricks [place] 350.1.13.10 [facility] 4.2.7.2.686 MATERNAL [id number] & CHILD 107 [facility] 2020-10-07 2020-10-07 Outpatient R AKINSIPE, [facility] [id number] 8P-20 Univers 15:00:00 15:00:00 KEY [id number] ity o [facility] 2020-10-07 2020-10-07 Outpatient R AKINSIPE, [facility] [id number] Univers 15:00:00 15:00:00 KEY meyery o [facility] 2020-10-04 2020-10-04 Outpatient R AKINSIPE, [facility] [id number] 8P-[id number] Univers 14:15:00 14:15:00 KEY [id number] ity o [facility] 2020-10-04 2020-10-04 Outpatient R AKINSIPE, [facility] [id number] Univers 14:15:00 14:15:00 KEY meyery o f [facility] 2020-09-20 2020-09-20 Outpatient R AKINSIPE, [facility] [id number] [id number] Univers 13:30:00 13:30:00 KEY [id number] mitchy o [facility] 2020-09-20 2020-09-20 Outpatient R AKINSIPE, [facility] [id number] Univers 13:30:00 13:30:00 KEY meyery o [facility] 2020-09-07 2020-09-07 Emergency [facility] [id number] Univers 16:29:00 20:08:00 Yenny Hall 350.1.13.10 ramirez [facility] 4.2.7.2.686 [facility] [place] [id number] [address] 2020-09-07 2020-09-07 Emergency [facility] [id number] 16:29:00 20:08:00 Yenny Hall 350.1.13.10 [place] 42.7.2.686 [place] [id number] 4 2020-09-07 2020-09-07 Office Akinsipe, [facility] [id number] Univers 14:27:17 15:59:19 Visit Key Ricks [place] 350.1.13.10 ity [facility] 4.2.7.2.686 [place] as MATERNAL [id number] Med ical & CHILD [address] [place] [address] 2020-09-07 2020-09-07 Office Akinsipe, [facility] [id number] 14:27:17 15:59:19 Visit Key Ricks [place] 350.1.13.10 [facility] 4.2.7.2.686 MATERNAL [id number] & CHILD [address] [place] [address] 2020-09-07 2020-09-07 Outpatient R AKINSIPE, [facility] [id number] 8P-20 Univers 14:30:00 14:30:00 KEY [id number] ity o [facility] 2020-09-07 2020-09-07 Outpatient R AKINSIPE, [facility] [id number] Univers 14:30:00 14:30:00 KEY ity o [facility] 2020-09-07 2020-09-07 Orders Doctor ELISE 1.2.840.114 [id number] Univers 00:00:00 00:00:00 Only Unassigned, FARAZ 350.1.13.10 ity of [facility] 4.2.7.2.686 [place] as [id number] [address] 2020-09-05 2020-09-05 Outpatient R HIRSCH, [facility] [id number] Univers 15:00:00 15:00:00 DEVIKA [id number] ity o f [facility] 2020-09-02 2020-09-02 Outpatient R AKINSIPE, [facility] [id number] 8P-20 Univers 10:30:00 10:30:00 KEY [id number] ity o f [facility] 2020-09-02 2020-09-02 Outpatient R AKINSIPE, [facility] [id number] Univers 10:30:00 10:30:00 KEY guzmán o f [facility] 2020-08-26 2020-08-26 Emergency Mckinley, [facility] [id number] Univers 17:30:00 20:13:00 Carmenza Sprague [place] 350.1.13.10 i ty [facility] [place]2.7.2.[place] [id number] [address] 2020-08-26 2020-08-26 Office Erikrachel, [facility] [id number] Univers 15:55:58 17:12:33 Visit Key C [place] 350.1.13.10 ity of [facility] 4.2.7.2.686 [place] as MATERNAL [id number] [facility] ical & CHILD [address] [place] [address] 2020-08-26 2020-08-26 Office Debra [facility] [id number] [id number] Univers 16:51:05 17:11:04 Visit Key Ricks [place] 350.1.13.10 ity of [facility] 4.2.7.2.686 [place] as MATERNAL [id number] [facility] ical & CHILD [address] [place] [address] 2020-08-26 2020-08-26 Nurse Visit, Ron-Rmch Nurse [facility] 1.2 .840.114 [id number] Univers 16:20:49 16:35:49 Visit Key Richardson [place] 350.1.13. 10 ity of [facility] 4.2.7.2.686 [place] as MATERNAL [id number] [facility] & CHILD [address] [place] [address] 2020-08-26 2020-08-26 Outpatient R [facility] [id number] Univers 15:30:00 15:30:00 [id number] ity of [facility] 2020-08-26 2020-08-26 Outpatient R [facility] [id number] Univers 15:30:00 15:30:00 ity of [facility] 2020-08-26 2020-08-26 [facility] [id number] Univers 15:15:00 15:15:00 KEY ity o f [facility] 2020-08-26 2020-08-26 Outpatient R DEBRA [facility] [id number] Univers 15:00:00 15:00:00 KEY drummond [facility] 2019-12-14 2019-12-14 Telephone Ananda NCMARINO [id number] Univers 00:00:00 00:00:00 Rejiguy Zelaya [place] 350.1.13.10 ity of [facility] 4.2.7.2.686 [place] as MATERNAL [id number] Med ical & CHILD [address] [place] [address] 2019-05-13 2019-05-13 Office Hirsch, [facility] 1.2.840.114 [id number] Univers 15:01:34 16:41:19 Visit Devika Zelaya [place] 350.1.13.10 ity of [facility] 4.2.7.2.686 [place] as MATERNAL [id number] [facility] & CHILD [address] [place] [address] 2019-05-13 2019-05-13 Orders Doctor ARIK 1.2.840.114 [id number] Univers 00:00:00 00:00:00 Only Unassigned, FARAZ 350.1.13.10 ity of Altha [facility] 4.2.7.2.686 Magdaleno as [id number] [address] 2009-12-23 2009-12-26 Inpatient [facility] JOCELYN [id number] Univers 23:02:00 14:30:00 KILLIAN 0 ramirez torres [facility] Results Test Description Test Time Test Comments Results Result Comments Source SARS-CoV-2 (COVID-19), RT-PCR/TMA 2021-10-12 15:39:22 Test Item Value Reference Range Interpretation Comme nts SARS-CoV-2 INTERPRETATION NEGATIVE SEE NOTE S ARS-CoV-2 RNA NOT (test code = 09004) DETECTED Negative results do not preclude SARS-C oV-2 infection and should notb e used as the sole basis for patient management deci sions. Negativeresults must be combined with clinical o bservations, patient history ,and epidemiological information. Optimum specime n types and timingfor peak viral levels during infectio ns caused by SARS-CoV-2 have notbeen determined. Col lection of multiple specim ens or types ofspecimens may be necessary to detect virus. I mproper specimencollect ion and handling, sequence variab ility under primers/probes, or organism present below t he limit of detection may l ead to falsenegative r esults. Positive and negative pr edictive values oftesting are h ighly dependent on prevalence. False negative testresults are more likely when prevalence is h igh. SOURCE (test code = 63494) NOT SPECIFIED Note: Methodology is Pratima Lisha Real-Time RT-PCR. The expected r esult or reference range is NEGATIVE (Not Detected). For more information regarding COVID -19 testing to include clinica linformation, methodology det ail, intended use, FDA author ization andrecommended fact sheets for patients or a [facility] providers, see [employer] Announcement: S ARS-CoV-2 (COVID-19) by N AAT at URL below (note,fact shee ts are provided by method given in report:https:// www.[employer]/c linicians/melani t-communications/ Alternatively, see downloadable PDF fact sheet at:https://www. [employer]/COVID -19-RT-PCR UNLESS OTHERWISE INDIC ATED, ALL TESTING PERFORMED [facility], [facility]. [address] [place] [address] LABORATORY DIRE CTOR: RAUL WALDRON M.D. CLIA NUMBER [id number] [place]. [id number] TROPONIN [id number] 04:08:08 Test Item Value Reference Interpretation Comments Range TROPONIN I (test 0.002 ng/mL See_Comment [Automated code = 4139192825) message] The system which generated this result transmitted reference range : <=0.034. The reference range was not used to interpret this result as normal/abnormal . ESTEFANI (test code = Reference (Normal) ESTEFANI) Range (defined by the 99th percentile reference [...] biotin. Lab Interpretation Normal (test code = 00770-6) [id number] 04:08:08 Test Item Value Reference Range Interpretation Comments NT-proBNP (test code 210 pg/mL See_Comment H [Autom ated = 4919420181) message] The system which generated this result transmitted reference range : <=125. The reference range was not used to interpret this result as normal/abnormal . ESTEFANI (test code = ESTEFANI) Biotin has been reported to cause a negative bias, interpret results relative to patient's use of biotin. Lab Interpretation Abnormal (test code = 44940-6) [facility]2021[facility]23 04:00:38 Test Item Value Reference Range Interpretation Comments APPEARANCE (test code = Clear Clear 8823072985) COLOR (test code = Yellow Yellow 0102833171) PH (test code = 4.8-8.0 9967827355) SP GRAVITY (test code = 1.003-1.030 2234246369) GLU U QUAL (test code = Normal Normal 2857745764) BLOOD (test code = Negative Negative 7234267847) KETONES (test code = Negative Negative 5501979750) PROTEIN (test code = Negative Negative 2887-8) UROBILIN (test code = Normal Normal 6916445458) BILIRUBIN (test code = Negative Negative 4204886938) NITRITE (test code = Negative Negative 4925375741) LEUK ANGELICA (test code = Negative Negative 5411039969) RBC/HPF (test code = See_Comment [Autom ated message] 5318800233) The system [employer] generated this result transmitted ref erence range: 0 - 3 HP F. The reference range was not used to int erpret this result as normal/abnormal . WBC/HPF (test code = See_Comment [Autom ated message] 5613962078) The system [employer] generated this result transmitted ref erence range: 0 - 5 HP F. The reference range was not used to int erpret this result as normal/abnormal . BACTERIA (test code = Negative Negative 3885935353) SQ EPITH (test code = See_Comment H [Auto mated message] 3825503003) The system [employer] generated this result transmitted ref erence range: <=2 HPF. The reference range was not used to int erpret this result as normal/abnormal . Lab Interpretation (test Abnormal code = 00665-5) [facility]. METABOLIC PANEL (90510)2021-05-15 03:54:11 Test Item Value Reference Range Interpretation Comments NA (test code = 134 mmol/L 135-145 L 6966132674) K (test code = 4.0 mmol/L 3.5-5.0 1915776879) CL (test code = 100 mmol/L 98-108 7808250389) CO2 TOTAL (test code = 25 mmol/L 23-31 3570022499) AGAP (test code = 2-16 7455268903) BUN (test code = 12 mg/dL 7-23 6549104655) GLUCOSE (test code = 97 mg/dL 70-110 8059342012) CREATININE (test code = 0.82 mg/dL 0.50-1.04 6255687296) TOTAL BILI (test code = 0.4 mg/dL 0.1-1.0 0152497714) CALCIUM (test code = 9.0 mg/dL 8.6-10.6 1396948224) T PROTEIN (test code = 7.2 g/dL 6.3-8.2 9260035887) ALBUMIN (test code = 4.3 g/dL 3.5-5.0 6227805696) ALK PHOS (test code = 74 U/L 34-122 6171283802) ALTv (test code = 40 U/L 5-35 H 1742-6) AST(SGOT) (test code = 34 U/L 13-40 5512171590) eGFR (test code = mL/min/1.73m2 1446365214) ESTEFANI (test code = ESTEFANI) Association of [...] tests). Lab Interpretation Abnormal (test code = 25049-2) [facility]2021-[facility]-23 03:54:11 Test Item Value Reference Range Interpretation Comments PHOSPHORUS (test code = 9080050481) 4.0 mg/dL 2.5-5.0 Lab Interpretation (test code = Normal 74740-2) [facility]2021-08-23 03:54:11 Test Item Value Reference Range Interpretation Comments MAGNESIUM (test code = 9288172483) 1.9 mg/dL 1.7-2.4 Lab Interpretation (test code = Normal 29671-9) [facility]2021-08-23 03:54:11 Test Item Value Reference Range Interpretation Comments LIPASE (test code = 8959804734) 124 U/L 0-220 Lab Interpretation (test code = Normal 36349-1) [facility] Paso[facility]-[id number] 03:53:41 Test Item Value Reference Interpretation Comments Range D-DIMER (test code = <0.21 See_Comment [Autom ated 7208229016) message] The system which generated this result [...] diagnosis. Lab Interpretation Normal (test code = 72736-3) [facility] (ID NOW RAPID TESTING)2021-05-15 03:50:30 Test Item Value Reference Range Interpretation Comments SARS-CoV-2 Rapid ID NOW Not Detected Not Detected (test code = 47593-7) ESTEFANI (test code = ESTEFANI) ID NOW COVID-19 Assay is an isothermal nucleic acid amplification test intended for the qualitative detection of nucleic acid from SARS-CoV-2 viral RNA in nasopharyngeal (SQL SSRS SSIS DEVELOPER) specimens. It is used under Emergency Use [...] indicated. Lab Interpretation Normal (test code = 18473-9) [facility] WITH [id number] 03:37:28 Test Item Value Reference Range Interpretation Comments WBC (test code = See_Comment [Automated 6690-2) message] The sy stem which generated this [...] RDW-SD (test code = 45.2 fL 39.0-49.9 32666-7) RDW-CV (test code = 12.8 % 12.0-15.5 788-0) PLT (test code = See_Comment [Automated 777-3) message] The sy stem which generated this result transmitted reference range : 166 - 358 10*3/ ?L. The reference r aaorn was not used to interpret this result as normal/abnormal . MPV (test code = 8.7 fL 9.5-12.9 L 74977-8) NRBC/100 WBC (test See_Comment [Automat ed code = 2574068482) message] The system which generated this result transmitted reference range : 0.0 - 10.0 /100 WBCs. The refer ence range was not u sed to interpret th is result as normal/abnormal . NRBC x10^3 (test code <0.01 See_Comment [Auto mated = 2890117671) message] The s ystem which generated this result transmitted reference range : 10*3/?L. The reference range was not used to interpret this result as normal/abnormal . GRAN MAT (NEUT) % 63.9 % (test code = 770-8) IMM GRAN % (test code 0.20 % = 5196826374) LYMPH % (test code = 25.4 % 736-9) MONO % (test code = 8.5 % 5905-5) EOS % (test code = 1.3 % 713-8) BASO % (test code = 0.7 % 706-2) GRAN MAT x10^3(ANC) 5.37 10*3/uL 1.88-7.09 (test code = 3310306694) IMM GRAN x10^3 (test <0.03 0.00-0.06 code = 2584355898) LYMPH x10^3 (test code 2.13 10*3/uL 1.32-3.29 = 731-0) MONO x10^3 (test code 0.71 10*3/uL 0.33-0.92 = 742-7) EOS x10^3 (test code = 0.11 10*3/uL 0.03-0.39 711-2) BASO x10^3 (test code 0.06 10*3/uL 0.01-0.07 = 704-7) Lab Interpretation Abnormal (test code = 47413-1) [facility] [id number] 17:23:00 Test Item Value Reference Range Interpretation Comments URINE CULTURE (test > 100,000 CFU/mL mixed code = 630-4) aerobic organisms - suggests endogenous microbial contamination [facility] [id number] 17:23:00 Test Item Value Reference Range Interpretation Comments URINE CULTURE (test > 100,000 CFU/mL mixed code = 630-4) aerobic organisms - suggests endogenous microbial contamination [facility] [id number] 01:33:00 Test Item Value Reference Range Interpretation Comments TROPONIN I (test <0.012 See_Comment [Automated code = 6936309113) message] The system which generated this result [...] ? Lab Interpretation Normal (test code = 55260-7) [facility] Paso[facility] CHEST 1 [id number] 01:31:40 Cardiomegaly with mild prominence of the [...] nota sensitive modality for thedetection of masses. [facility], Radiant Results Inft User - 08/26/2020 7:32 [...] edema or pneumonitis. Please correlate clinically.RL: 135 [facility]OL[facility] PAN[facility] (94846)2020-08-27 01:23:00 Test Item Value Reference Range Interpretation Comments NA (test code = 133 mmol/L 135-145 L 9140708432) K (test code = 4.1 mmol/L 3.5-5 5953351217) CL (test code = 99 mmol/L 98-108 8015070900) CO2 TOTAL (test code = 26 mmol/L 23-31 0054212796) AGAP (test code = 2-16 9530041252) BUN (test code = 8 mg/dL 7-23 8336567909) GLUCOSE (test code = 102 mg/dL 70-110 7238747958) CREATININE (test code = 0.68 mg/dL 0.5-1.04 7330206606) TOTAL BILI (test code = 0.5 mg/dL 0.1-1.7 6968969040) CALCIUM (test code = 9.5 mg/dL 8.6-10.6 5349151968) T PROTEIN (test code = 8.1 g/dL 6.3-8.2 5273574011) ALBUMIN (test code = 4.7 g/dL 3.5-5 3193376465) ALK PHOS (test code = 94 U/L 34-122 1213910021) ALTv (test code = 37 U/L 5-35 H 1742-6) AST(SGOT) (test code = 36 U/L 13-40 9215300837) eGFR Calculation mL/min/1.73m2 (Non-) (test code = 0222593206) eGFR Calculation mL/min/1.73m2 () (test code = 6058570770) ESTEFANI (test code = ESTEFANI) Association of [...] tests). Lab Interpretation Abnormal (test code = 62251-3) [facility]2020-12-05 00:59:00 Test Item Value Reference Range Interpretation Comments APPEARANCE (test code = Clear Clear 1726436846) COLOR (test code = Yellow Yellow 4912187083) PH (test code = 4.8-8.0 0021882500) SP GRAVITY (test code = 1.003-1.030 7471245139) GLU U QUAL (test code = Negative Negative [id number]) BLOOD (test code = Negative Negative 8965337368) KETONES (test code = Trace Negative A [id number]) PROTEIN (test code = Negative Negative 2887-8) UROBILIN (test code = 0.2 mg/dL See_Comment [Auto mated message] [id number]) The system [employer] generated this result transmit luis miguel reference range : 0-1.0 mg/dL. Th e reference range was not used to interpret this result as normal/abnormal . BILIRUBIN (test code = Negative Negative 3624429563) NITRITE (test code = Negative Negative 3218799436) LEUK ANGELICA (test code = Negative Negative 8489815568) RBC/HPF (test code = <1 See_Comment [Autom ated message] [id number]) The system [employer] generated this result transmit luis miguel reference range : 0 - 3 HPF. The refe rence range was not u sed to interpret th is result as normal/abnormal . WBC/HPF (test code = <1 See_Comment [Autom ated message] 2135940301) The system [employer] generated this result transmit luis miguel reference range : 0 - 5 HPF. The refe rence range was not u sed to interpret th is result as normal/abnormal . BACTERIA (test code = Negative Negative 4119157424) Lab Interpretation (test Abnormal code = 69459-8) [facility] [id number] 00:52:00 Test Item Value Reference Range Interpretation Comments APTT Patient (test See_Comment [Automat ed code = 3173-2) message] The system which generated this result transmitted reference range : 23 - 38 Seconds . The reference range was not used to interpr et this result as normal/abnormal . ESTEFANI (test code = ESTEFANI) The [facility] patient population mean normal value for aPTT is 30 seconds. Lab Interpretation Normal (test code = 03701-6) [facility] / [id number] 00:50:00 Test Item Value Reference Range Interpretation Comments PROTIME PATIENT (test See_Comment [Auto mated message] code = 5964-2) The system [facility] generated this result transmitted ref erence range: 12.0 - 1 4.7 Seconds. The re ference range was not u sed to interpret this result as normal/abnor mal. INR (test code = 6301-6) Nor mal INR <1.1; Warfarin Therap eutic range 2.0 to 3. 0 or 2.5 to 3.5, dep ending upon the indica tions. Lab Interpretation (test Normal code = 09323-3) [facility] [id number] 00:45:00 Test Item Value Reference Range Interpretation Comments WBC (test code = See_Comment [Automated 5890-2) message] The sy stem which generated this result transmitted reference range : 4.30 - 11.10 10*3/?L. The reference range was not used to interpret this result as normal/abnormal . RBC (test code = See_Comment [Automated 729-8) message] The sy stem which generated this [...] RDW-SD (test code = 41.3 fL 39-49.9 72936-2) RDW-CV (test code = 11.5 % 12-15.5 L 788-0) PLT (test code = See_Comment [Automated 777-3) message] The sy stem which generated this result transmitted reference range : 166 - 358 10*3/ ?L. The reference r aaron was not used to interpret this result as normal/abnormal . MPV (test code = 9.0 fL 9.5-12.9 L 74347-2) NRBC/100 WBC (test See_Comment [Automat ed code = 5055329723) message] The system which generated this result transmitted reference range : 0.0 - 10.0 /100 WBCs. The refer ence range was not u sed to interpret th is result as normal/abnormal . NRBC x10^3 (test code <0.01 See_Comment [Auto mated = 9373112623) message] The s ystem which generated this result transmitted reference range : 10*3/?L. The reference range was not used to interpret this result as normal/abnormal . GRAN MAT (NEUT) % 66.0 % (test code = 770-8) IMM GRAN % (test code 0.10 % = 1546411501) LYMPH % (test code = 21.5 % 736-9) MONO % (test code = 7.8 % 5905-5) EOS % (test code = 4.2 % 713-8) BASO % (test code = 0.4 % 706-2) GRAN MAT x10^3(ANC) 5.16 10*3/uL 1.88-7.09 (test code = 5616343304) IMM GRAN x10^3 (test <0.03 0-0.06 code = 8822864298) LYMPH x10^3 (test code 1.68 10*3/uL 1.32-3.29 = 731-0) MONO x10^3 (test code 0.61 10*3/uL 0.33-0.92 = 742-7) EOS x10^3 (test code = 0.33 10*3/uL 0.03-0.39 711-2) BASO x10^3 (test code 0.03 10*3/uL 0.01-0.07 = 704-7) Lab Interpretation Abnormal (test code = 36994-0) [facility] URINALYSIS W/O SPECIFIC [id number] 22:15:00 Test Item Value Reference Range Interpretation [...] code = 3257) Trace Negative - Negative [facility] URINALYSIS W/O SPECIFIC [id number] 22:15:00 Test Item Value Reference Range Interpretation [...] code = 3257) Trace Negative - Negative [facility] URINALYSIS W SPECIFIC [id number] 20:43:00 Test Item Value Reference Range Interpretation [...] POCT U APPEAR (test code = 3267) [facility] URINALYSIS W SPECIFIC [id number] 20:43:00 Test Item Value Reference Range Interpretation [...] POCT U APPEAR (test code = 3267) [facility] URINALYSIS W SPECIFIC [id number] 20:43:00 Test Item Value Reference Range Interpretation [...] POCT U APPEAR (test code = 3267) [facility] URINALYSIS W SPECIFIC [id number] 20:43:00 Test Item Value Reference Range Interpretation [...] POCT U APPEAR (test code = 3267) [facility] URINALYSIS W SPECIFIC [id number] 20:43:00 Test Item Value Reference Range Interpretation [...] POCT U APPEAR (test code = 3267) [facility] URINALYSIS W SPECIFIC [id number] 20:43:00 Test Item Value Reference Range Interpretation [...] POCT U APPEAR (test code = 3267) [facility]
[2021-11-18 15:44] LABS: Absolute Lymphocytes (CBC) 1.6 K/uL (0.7-4.9); Hematocrit 41.9 % (36.0-45.0); Lymphocytes % 24.9 % (15.3-44.8); MPV 7.1 fL (7.6-11.3); RBC Red Blood Cell Count 4.38 M/uL (3.86-4.86)
[2021-11-18 15:44] LABS: Urine Blood Negative (Negative); Urine Glucose Negative (Negative); Urine Protein Negative (Negative); Urine pH 6.5 (5.0-7.0)
[2021-11-18 15:48] LABS: Protime INR 1.03
[2021-11-18 16:03] LABS: ALT/SGPT 20 U/L (12-78); AST/SGOT 12 U/L (15-37); Albumin 3.6 g/dL (3.4-5.0); Alkaline Phosphatase 102 U/L (45-117); BUN Blood Urea Nitrogen 10 mg/dL (7-18); Bicarbonate 28 mmol/L (21-32); Bilirubin Total 0.2 mg/dL (0.2-1.0); Glucose Level 121 mg/dL (74-106); NT PRO-BNP 145 pg/mL (<125); Potassium 3.7 mmol/L (3.5-5.1); Protein, Total 7.7 g/dL (6.4-8.2); Sodium Level 135 mmol/L (136-145)
[2021-11-18 16:16] LABS: Bilirubin Direct < 0.1 mg/dL (0-0.2)
--- NOTE | 2021-11-18 16:27 | RAD REPORT ---
EXAM DESCRIPTION: RAD - Chest Single View - 11/18/2021 4:16 pm CLINICAL HISTORY: DYSPNEA Chest pain. COMPARISON: <Comparisons> FINDINGS: Portable technique limits examination quality. Mild interstitial pulmonary edema. The heart is mildly enlarged. No displaced fractures. IMPRESSION: Mild CHF.
[2021-11-18] MEDS ORDERED: FUROSEMIDE 20 MG TABLET ONE (17:34)
--- NOTE | 2021-11-18 18:39 | ER ---
Nurse's Notes [facility] Name: Carmel Rodriguez Age: 61 yrs Sex: Female : 1960 Arrival Date: 11/18/2021 Time: 15:11 Bed 5 Private MD: Diagnosis: Dyspnea;Acute pulmonary edema-mild Presentation: 11/18 15:26 Chief complaint: Patient states: SOB and chest pressure x 4-5 weeks, denies fever. ph Coronavirus screen: Vaccine status: Patient reports receiving the 1st dose of the Covid vaccine. Ebola Screen: No symptoms or risks identified at this time. Initial Sepsis Screen: Does the patient meet any 2 criteria? No. Patient's initial sepsis screen is negative. Does the patient have a suspected source of infection? No. Patient's initial sepsis screen is negative. Risk Assessment: Do you want to hurt yourself or someone else? Patient reports no desire to harm self or others. Onset of symptoms was November 18, 2021. 15:26 Method Of Arrival: Ambulatory ph 15:26 Acuity: CHRSITINE 3 ph Triage Assessment: 15:30 General: Appears in no apparent distress. Behavior is cooperative, anxious. parks Respiratory: Reports shortness of breath Onset: The symptoms/episode began/occurred 4-5weeks, the patient has moderate shortness of breath. Historical: - Allergies: 15:27 ACETAMINOPHEN; ph 15:27 CALCIUM CARBONATE; ph 15:27 EXCEDRIN; ph 15:27 Excedrin PM; ph 15:27 Ibuprofen; ph 15:27 NSAIDS; ph 15:27 Toradol; ph - Home Meds: 15:27 buspirone 10 mg Oral tab 3 tabs 2 times per day [Active]; hydralazine 50 mg Oral tab 1 ph tab 2 times per day [Active]; hydroxyzine HCl 50 mg Oral tab 1 tab daily [Active]; losartan 100 mg Oral tab 1 tab once daily [Active]; metoprolol tartrate 50 mg Oral tab 1 tab 2 times per day [Active]; mirtazapine 30 mg Oral tab 1 tab once daily [Active]; pantoprazole 40 mg Oral TbEC 1 tab once daily [Active]; Vitamin D2 50,000 unit Oral cap 95566 unit WEEKLY [Active]; - PMHx: 15:27 Anxiety; Depression; Hypertension; ph - PSHx: 15:27 section; ph - Immunization history:: Client reports receiving the 1st dose of the Covid vaccine. - Social history:: Smoking status: Patient denies any tobacco usage or history of. Screenin:29 Abuse screen: Denies threats or abuse. Denies injuries from another. Nutritional parks screening: No deficits noted. Tuberculosis screening: No symptoms or risk factors identified. Fall Risk IV access (20 points). Assessment: 15:29 Pain: Denies pain. Cardiovascular: Rhythm is sinus rhythm. Respiratory: Airway is parks patent Respiratory effort is even, shallow, Breath sounds are clear bilaterally. Breath sounds are diminished. 15:46 Reassessment: No changes from previously documented assessment. Patient and/or family ll1 updated on plan of care and expected duration. Pain level reassessed. Patient is alert, oriented x 3, equal unlabored respirations, skin warm/dry/pink. Patient denies pain at this time. 16:45 Reassessment: No changes from previously documented assessment. Patient and/or family ll1 updated on plan of care and expected duration. Pain level reassessed. Patient is alert, oriented x 3, equal unlabored respirations, skin warm/dry/pink. 17:45 Reassessment: No changes from previously documented assessment. Patient and/or family ll1 updated on plan of care and expected duration. Pain level reassessed. Patient is alert, oriented x 3, equal unlabored respirations, skin warm/dry/pink. Vital Signs: 15:26 BP 159 / 83; Pulse 88; Resp 20; Temp 98.4; Pulse Ox 100% on R/A; ph 16:01 BP 139 / 65; Pulse 78; Resp 18; Pulse Ox 98% on R/A; ll1 17:45 BP 146 / 58; Pulse 78; Resp 17; Pulse Ox 98% on R/A; ll1 18:29 BP 127 / 59; Pulse 75; Resp 16; Pulse Ox 98% on R/A; ll1 ED Course: 15:11 Patient arrived in ED. ds1 15:12 Florian Monroe, MANDI is Primary Nurse. ll1 15:12 Arabella Fischer FNP-C is PHCP. kb 15:12 Greg Serrano DO is Attending Physician. kb 15:12 Arm band placed on Patient placed in an exam room, on a stretcher. ll1 15:27 Triage completed. ph 15:29 Patient has correct armband on for positive identification. Bed in low position. parks 15:29 No provider procedures requiring assistance completed. parks 15:39 Florian Monroe, RN is Primary Nurse. ll1 15:40 Inserted saline lock: 22 gauge in right antecubital area, using aseptic technique. ll1 Blood collected. 16:16 XRAY Chest (1 view) In Process Unspecified. EDMS 18:49 IV discontinued, intact, Pressure dressing applied. parks Administered Medications: 17:42 Drug: LaSIX (furosemide) 20 mg Route: PO; ll1 Outcome: 18:39 Discharge ordered by . kb 18:49 Discharged to home parks 18:49 Condition: good 18:49 Discharge instructions given to patient, Prescriptions given X 1. 18:49 Patient left the ED. parks Signatures: Dispatcher [employer] EDMS Arabella Fischer, PRODUCT HANDLER-C PRODUCT HANDLER-Ckb Rohini Garsia ds1 Arianne Mercedes RN RN Florian Monroe, RN RN [facility] Dottie Elmore RN RN
--- NOTE | 2021-11-18 18:39 | EDPHYS ---
Physician Documentation [facility] Name: Carmel Rodriguez Age: 61 yrs Sex: Female : 1960 Arrival Date: 11/18/2021 Time: 15:11 Bed 5 Private MD: ED Physician Greg Serrano HPI: 11/18 16:24 This 61 yrs old Female presents to ER via Ambulatory with complaints of kb Shortness Of Breath. 16:24 Pt reports shortness of breath with intermittent substernal chest pain for 5 weeks. kb States the shortness of breath is worse with exertion and upon laying flat. . 17:32 The patient has shortness of breath with light activity. Onset: The symptoms/episode kb began/occurred 5 week(s) ago. Duration: The symptoms are continuous. The patient's shortness of breath is aggravated by exertion, supine position. Associated signs and symptoms: Pertinent positives: chest pain. Severity of symptoms: At their worst the symptoms were mild moderate in the emergency department the symptoms are unchanged. The patient has not experienced similar symptoms in the past. The patient has not recently seen a physician. Historical: - Allergies: 15:27 ACETAMINOPHEN; ph 15:27 CALCIUM CARBONATE; ph 15:27 EXCEDRIN; ph 15:27 Excedrin PM; ph 15:27 Ibuprofen; ph 15:27 NSAIDS; ph 15:27 Toradol; ph - Home Meds: 15:27 buspirone 10 mg Oral tab 3 tabs 2 times per day [Active]; hydralazine 50 mg Oral tab 1 ph tab 2 times per day [Active]; hydroxyzine HCl 50 mg Oral tab 1 tab daily [Active]; losartan 100 mg Oral tab 1 tab once daily [Active]; metoprolol tartrate 50 mg Oral tab 1 tab 2 times per day [Active]; mirtazapine 30 mg Oral tab 1 tab once daily [Active]; pantoprazole 40 mg Oral TbEC 1 tab once daily [Active]; Vitamin D2 50,000 unit Oral cap 37863 unit WEEKLY [Active]; - PMHx: 15:27 Anxiety; Depression; Hypertension; ph - PSHx: 15:27 section; ph - Immunization history:: Client reports receiving the 1st dose of the Covid vaccine. - Social history:: Smoking status: Patient denies any tobacco usage or history of. ROS: 16:23 Constitutional: Negative for fever, chills, and weight loss. kb 16:23 Respiratory: Positive for dyspnea on exertion, orthopnea, shortness of breath, Negative for cough, hemoptysis, pleurisy, sputum production, wheezing. 16:23 All other systems are negative. Exam: 15:53 Constitutional: This is a well developed, well nourished patient who is awake, alert, kb and in no acute distress. Head/Face: Normocephalic, atraumatic. ENT: Moist Mucous membranes Cardiovascular: Regular rate and rhythm with a normal S1 and S2. No gallops, murmurs, or rubs. No pulse deficits. Respiratory: Respirations even and unlabored. No increased work of breathing. Talking in full sentences Abdomen/GI: Soft, non-tender. No distention Skin: Warm, dry with normal turgor. Normal color. MS/ Extremity: Pulses equal, no cyanosis. Neurovascular intact. Full, normal range of motion. Neuro: Awake and alert, GCS 15, oriented to person, place, time, and situation. Moves all extremities. Normal gait. Psych: Awake, alert, with orientation to person, place and time. Behavior, mood, and affect are within normal limits. 15:53 ECG was reviewed by the Attending Physician. Vital Signs: 15:26 BP 159 / 83; Pulse 88; Resp 20; Temp 98.4; Pulse Ox 100% on R/A; ph 16:01 BP 139 / 65; Pulse 78; Resp 18; Pulse Ox 98% on R/A; ll1 17:45 BP 146 / 58; Pulse 78; Resp 17; Pulse Ox 98% on R/A; ll1 18:29 BP 127 / 59; Pulse 75; Resp 16; Pulse Ox 98% on R/A; ll1 MDM: 15:13 Patient medically screened. kb 16:24 Data reviewed: vital signs, nurses notes. Data interpreted: Pulse oximetry: on room air kb is 98 %. Interpretation: normal. 18:38 Counseling: I had a detailed discussion with the patient and/or guardian regarding: the kb historical points, exam findings, and any diagnostic results supporting the discharge/admit diagnosis, lab results, radiology results, the need for outpatient follow up, a medical manager, a family practitioner, to return to the emergency department if symptoms worsen or persist or if there are any questions or concerns that arise at home. 11/18 15:34 Order name: Basic Metabolic Panel; Complete Time: 16:20 kb 11/18 15:34 Order name: CBC with Diff; Complete Time: 15:52 kb 11/18 15:34 Order name: LFT's; Complete Time: 16:20 kb 11/18 15:34 Order name: Magnesium; Complete Time: 16:20 kb 11/18 15:34 Order name: NT PRO-BNP; Complete Time: 16:20 kb 11/18 15:34 Order name: PT-INR; Complete Time: 15:52 kb 11/18 15:34 Order name: Troponin HS; Complete Time: 16:20 kb 11/18 15:34 Order name: XRAY Chest (1 view); Complete Time: 16:38 kb 11/18 15:34 Order name: EKG; Complete Time: 15:35 kb 11/18 15:44 Order name: Urine Dipstick-Ancillary; Complete Time: 15:52 EDMS 11/18 16:23 Order name: COVID-19 SARS RT PCR (Document "Date of Onset" if Symptomatic) kb 11/18 16:23 Order name: SARS-COV-2 RT PCR; Complete Time: 17:59 EDMS 11/18 17:30 Order name: Troponin HS; Complete Time: 18:38 eb 11/18 15:34 Order name: Cardiac monitoring; Complete Time: 15:40 kb 11/18 15:34 Order name: EKG - Nurse/Tech; Complete Time: 15:40 kb 11/18 15:34 Order name: IV Saline Lock; Complete Time: 15:40 kb 11/18 15:34 Order name: Labs collected and sent; Complete Time: 15:40 kb 11/18 15:34 Order name: O2 Per Protocol; Complete Time: 15:40 kb 11/18 15:34 Order name: O2 Sat Monitoring; Complete Time: 15:35 kb 11/18 17:30 Order name: EKG; Complete Time: 17:30 eb 11/18 17:30 Order name: EKG - Nurse/Tech; Complete Time: 17:30 eb EC:53 Rate is 84 beats/min. Rhythm is regular. QRS Goodwin is Normal. LA interval is normal at kb 154 msec. QRS interval is normal at 72 msec. QT interval is normal at 372 msec. Administered Medications: 17:42 Drug: LaSIX (furosemide) 20 mg Route: PO; ll1 Disposition: 21:35 Co-signature as Attending Physician, Arabella TYSON I agree with the assessment ms3 and plan of care. Disposition Summary: 11/18/21 18:39 Discharge Ordered Location: Home kb Condition: Stable kb Diagnosis - Dyspnea kb - Acute pulmonary edema - mild kb Followup: kb - With: Emergency Department - When: As needed - Reason: Worsening of condition Followup: kb - With: Private Physician - When: 2 - 3 days - Reason: Recheck today's complaints, Continuance of care, Re-evaluation by your physician Discharge Instructions: - Discharge Summary Sheet kb - Shortness of Breath, Adult, [id number] kb - Pulmonary Edema, [id number]-[id number] kb Forms: - Medication Reconciliation Form kb - Thank You Letter kb - Antibiotic Education kb - Prescription Opioid Use kb Prescriptions: - Lasix 20 mg Oral Tablet - take 1 tablet by ORAL route once daily; 20 tablet; Refills: 0, Product kb Selection Permitted Signatures: Dispatcher [employer] EDMS Arabella Fischer, AMMYC LIBRARIAN [employer]ARY-CkArianne Porras, RN RN Monika Casillas Lynsay, RN RN ll1 Greg Serrano DO DO ms3 Regine Soto PA PA sb3
[2021-11-18 19:01] VITALS: O2SAT 98
[2021-11-18 19:04] VITALS: TEMP 98.4
[2021-11-18 19:05] VITALS: BP 127/59
--- NOTE | 2021-11-20 08:50 | EKG ---
Test Date: 2021-11-19 Test Time: 02:14:46 Research Mechanic: SOY MEASUREMENT RESULTS: Intervals: Rate: 74 ID: [id number] QRSD: 78 QT: 404 QTc: 448 [place]: P: 0 ID: [id number] QRS: -3 T: 23 INTERPRETIVE STATEMENTS: Normal sinus rhythm Minimal voltage criteria for LVH, may be normal variant Borderline ECG Compared to ECG 05/10/2021 05:50:07 Left ventricular hypertrophy now present T-wave abnormality no longer present Electronically Signed On 11-20-21 08:47:47 CONTROL VALVE MECHANIC by Kishore Bateman
--- NOTE | 2021-11-20 08:51 | EKG ---
Test Date: 2021-11-18 Test Time: 15:24:15 Inspector Government Property: ROX MEASUREMENT RESULTS: Intervals: Rate: 84 MN: 154 QRSD: 72 QT: 372 QTc: 439 [place]: P: 8 MN: 154 QRS: 2 T: 26 INTERPRETIVE STATEMENTS: Normal sinus rhythm Normal ECG Compared to ECG 05/10/2021 05:50:07 T-wave abnormality no longer present Electronically Signed On 11-20-21 08:47:55 WET SANDER by Kishore Bateman
== END 2021-11-18 18:49 | disposition home or self-care (01) ==
LOC: ER 15:09
DX: J81.0 Acute pulmonary edema (principal); I10 Essential (primary) hypertension; F41.8 Other specified anxiety disorders; Z20.822 Contact with and (suspected) exposure to COVID-19; Z88.5 Allergy status to narcotic agent; Z88.6 Allergy status to analgesic agent
CPT/HCPCS: 93005 ×2; 85025; 80048; 36415; 83735; 85610; 80076; 81003; 84484 ×2; 83880; 71045; 99284; U0003

== ENCOUNTER 2021-11-19 01:33 | Inpatient (IN) | payer OTHER ==
--- OUTSIDE RECORDS SUMMARY | 2021-11-19 01:38 | XMS REPORT | Continuity of Care Document ---
:1960 Author Organization [facility] t Address [address] [place] [address] Dr. [address]. [address] [place] [address] Care Team Providers Name Role Phone Mamta ROMAN, B Attending Clinician Akinsipe WHCNP, C Attending Clinician AKINSIPE, C Attending Clinician Unavailable Sean YOUTH COURT JUDGE, G Attending Clinician Doctor Unassigned, Name Attending Clinician Unavailable Garcia HIRSCH Attending Clinician Unavailable Mayela PAC, S Attending Clinician Visit, Nurse Attending Clinician Unavailable Ananda [employer]SEMBL[employer] SUPERVISOR, R Attending Clinician Johnathan COLUNGA Attending Clinician Unavailable JOANA Admitting Clinician Unavailable Payers Payer Name Policy Type Policy Number Effective Date Expiration Date Darcie griffith MEDICARE PART A [id number] 2020 \\T\\ B 00:00:00 Advance Directives Directive Decision Effective Termination Comments Source Date Date Healthcare Agents on N/A [facility] ersity FileNameRelationshipHealthcare [facility] Agent Medical RelationshipCommunication[facility] Care [phone] (Mobile) Problems Condition Condition Condition Status Onset Resolution Last Treating Co mments Source Name Details Category Date Date Treatment Clinician Date Anal wart Anal wart Disease Active 2019-09 Uni vers 2-04 ity of 00:00: [place] 00 [facility] Vaginal Vaginal Disease Active 2019- Univers yeast yeast 8-21 ity of infection infection 00:00: Arturo fitzgerald [facility] Vaginal Vaginal Disease Active 2019- Univers itching itching 8-21 ity of 00:00: [place] [facility] Urinary Urinary Disease Active Univers urgency urgency 8- ity of 00:00: [place] [facility] Screen for Screen for Disease Active U nivers STD STD 4-24 it[place] of (sexually ([place]ually [place] transmit[place] transmit[place] 00 [place] dical d disease) d disease) Br anch Vaginal Vaginal Disease Active Univers discomfort discomfort 4-24 it y of 00:00: [place] [facility] Contracept Contracept Disease Active U nivers roz roz 3-14 it[place] of management management 00:[place] [facility] Well woman Well woman Disease Active U nivers exam exam 3-14 ity of 00:00: [place] [facility] Contracept Contracept Disease Active U nivers roz roz 3-14 ity of management management 00:[place] [facility] Menopause Menopause Disease Active Uni vers 6-25 ity of 00:00: [place] [facility] Morbid Morbid Disease Active Univers obesity obesity 6-25 ity of 00:00: [place] [facility] Essential Essential Disease Active Uni vers hypertensi hypertensi 6-25 it y of on, benign on, benign 00:[place]: [place] [facility] Generalize Generalize Disease Active U nivers d anxiety d anxiety 6-25 ity of disorder disorder 00:00: [place] [facility] Depression Depression Disease Active U nivers 6-25 ity of 00:00: [place] [facility] Allergies, Adverse Reactions, Alerts Allergy Allergy Status Severity Reaction(s) Onset Inactive Treating Comm ents Source Name Type Date Date Clinician Hydrochl Propensi Active Unknown - Severe Uni vers orothiaz ty to See comments 12-25 hyponatre ity of isabel adverse 00:00: el [place] reaction 00 Medical s [place] HYDROCHL DRUG Active Unknown-Cmnt Un rohit OROTHIAZ INGREDI 4 ity of ISABEL 00:00: [place] 00 [facility] Aspirin- Propensi Active Swelling Univ ers Acetamin ty to 04-28 ity of ophen-Ca adverse 00:00: [place] ffeine reaction Medical [facility] Ibuprofe Propensi Active Swelling Univ ers n ty to 04-28 ity of adverse 00:00: [place] reaction 00 Medical s Branch ASPIRIN- DRUG Active Swelling [facility] s ACETAMIN 04-28 ity of OPHEN-CA 00:00: [place] FFEINE [facility] IBUPROFE DRUG Active Swelling [facility] s N INGREDI 04-28 ity of 00:00: [address] Social History Social Habit Start Date Stop Date Quantity Comments Source Exposure to Not sure [facility] SARS-CoV-2 [facility] (event) [place] Tobacco use and 2020-09-07 2020-09-07 Never used Universit y of exposure 00:00:00 00:00:00 [facility] Alcohol intake 2020-09-07 2020-09-07 Current drinker of Un iversity of 00:00:00 00:00:00 alcohol (finding) [facility] edical [place] Alcohol Comment 2015-03-14 2015-03-14 occasionally Univers ity of 00:00:00 00:00:00 [facility] Sex Ass[birth year] At [birth year] Universit y of 00:00:00 00:00:00 [facility] Smoking Status Start Date Stop Date Source Never smoker [facility] Medications Ordered Filled Start Stop Current Ordering Indication Dosage Frequency Signature Comments Components Source Medication Medication Date Date Medication? Clinician (SIG) Name Name iopamidol 2020- No [id number] 120mL 120 mL, Univers (ISOVUE 05-15 Intravenou ity o f 300-500 mL) 07:05: 07:05 s, ONCE, 1 [place] injection 00 :00 dose, Mon Medic al 120 mL 05/15/21 at Branch 0215, Routine cloNIDine 2020- No .1mg 0.1 mg, Univ ers (CATAPRES) 05-15 Oral, ity of tablet 0.1 05:30: 05:46 ONCE, 1 [place] as mg 00 :00 dose, [facility] Medical 05/15/21 at Branch 0030, STAT morpHINE 2020- No 4mg 4 mg, Slow Un rohit injection 4 05-15 IV Push, ity of mg 03:45: 03:17 ONCE, 1 [place] 00 :00 dose, [facility] 05/14/21 at Branch 2245, STAT hydrALAZINE 2020-1 [...] ity of mg tablet 22:23: every 6 [place] 39 (six) Medical hours. Branch hydralAZINE 2019- [...] ity of mg tablet 22:23: every 6 [place] 39 (six) Medical hours. Branch hydralAZINE 2019- Yes 50mg Take 50 mg Univers 50 mg 2-04 by mouth 2 ity of tablet 22:23: (two) [place] 39 times Medical daily. Branch mirtazapine 2019-09 Yes 30mg Take 30 mg Univers 30 mg 2-04 by mouth ity of tablet 22:23: at [place] [address] bedtime. Medical Branch busPIRone 2019- Yes 10mg [...] by mouth ity of tablet 22:23: at [place] [address] bedtime. Medical Branch busPIRone 2019- Yes 10mg [...] ity of mg tablet 22:23: every 6 [place] [address] (six) Medical hours. Branch hydralAZINE 2019-09 Yes 50mg Take 50 mg Univers 50 mg 2-04 by mouth 2 ity of tablet 22:23: (two) [place] 39 times Medical daily. Branch mirtazapine 2019-09 Yes 30mg Take 30 mg Univers 30 mg 2-04 by mouth ity of tablet 22:23: at [place] [address] bedtime. Medical Branch busPIRone 2019- Yes 10mg Take 10 mg Un rohit 10 mg 2-04 by mouth 2 ity of tablet 22:23: (two) [place] 39 times Medical daily. Branch PAROXETINE 2019- [...] ity of mg tablet 22:23: every 6 [place] [address] (six) Medical hours. Branch hydralAZINE 2019-09 Yes 50mg Take 50 mg Univers 50 mg 2-04 by mouth 2 ity of tablet 22:23: (two) [place] 39 times Medical daily. Branch mirtazapine 2019-09 Yes 30mg Take 30 mg Univers 30 mg 2-04 by mouth ity of tablet 22:23: at [place] [address] bedtime. Medical Branch busPIRone 2019- Yes 10mg Take 10 mg Un rohit 10 mg 2-04 by mouth 2 ity of tablet 22:23: (two) [place] 39 times Medical daily. Branch PAROXETINE 2019- [...] ity of mg tablet 22:23: every 6 [place] [address] (six) Medical hours. Branch hydralAZINE 2019-09 Yes 50mg Take 50 mg Univers 50 mg 2-04 by mouth 2 ity of tablet 22:23: (two) [place] 39 times Medical daily. Branch mirtazapine 2019-09 Yes 30mg Take 30 mg Univers 30 mg 2-04 by mouth ity of tablet 22:23: at [place] [address] bedtime. Medical Branch busPIRone 2019-09 Yes 10mg Take 10 mg Un rohit 10 mg 2-04 by mouth 2 ity of tablet 22:23: (two) [place] 39 times Medical daily. Branch PAROXETINE 2019- [...] ity of mg tablet 22:23: every 6 [place] [address] (six) Medical hours. Branch hydralAZINE 2019-09 Yes 50mg Take 50 mg Univers 50 mg 2-04 by mouth 2 ity of tablet 22:23: (two) [place] 39 times Medical daily. Branch mirtazapine 2019- Yes 30mg Take 30 mg Univers 30 mg 2-04 by mouth ity of tablet 22:23: at [place] [address] bedtime. Medical Branch busPIRone 2020- Yes 10mg [...] ity of mg tablet 22:23: every 6 [place] 39 (six) Medical hours. Branch hydralAZINE 2019- Yes 50mg Take 50 mg Univers 50 mg 2-04 by mouth 2 ity of tablet 22:23: (two) [place] 39 times Medical daily. Branch mirtazapine 2019- Yes 30mg Take 30 mg Univers 30 mg 2-04 by mouth ity of tablet 22:23: at [place] [address] bedtime. Medical Branch busPIRone 2019- Yes 10mg [...] ity of mg tablet 22:23: every 6 [place] 39 (six) Medical hours. Branch hydralAZINE 2019- Yes 50mg Take 50 mg Univers 50 mg 2-04 by mouth 2 ity of tablet 22:23: (two) [place] 39 times Medical daily. Branch mirtazapine 2019- Yes 30mg Take 30 mg Univers 30 mg 2-04 by mouth ity of tablet 22:23: at [place] 39 bedtime. Medical Branch busPIRone 2019- Yes [...] ity of mg tablet 22:23: every 6 [place] 39 (six) Medical hours. Branch hydralAZINE 2019-09 Yes 50mg Take 50 mg Univers 50 mg 2-04 by mouth 2 ity of tablet 22:23: (two) [place] 39 times Medical daily. Branch mirtazapine 2019-09 Yes 30mg Take 30 mg Univers 30 mg 2-04 by mouth ity of tablet 22:23: at [place] [address] bedtime. Medical Branch busPIRone 2019-09 Yes 10mg [...] ity of mg tablet 22:23: every 6 [place] 39 (six) Medical hours. Branch hydralAZINE 2019- [...] ity of mg tablet 22:23: every 6 [place] [address] (six) Medical hours. Branch hydralAZINE 2019-09 Yes 50mg Take 50 mg Univers 50 mg 2-04 by mouth 2 ity of tablet 22:23: (two) [place] 39 times Medical daily. Branch mirtazapine 2019-09 Yes 30mg Take 30 mg Univers 30 mg 2-04 by mouth ity of tablet 22:23: at [place] [address] bedtime. Medical Branch busPIRone 2019-09 Yes 10mg [...] ity of mg tablet 22:23: every 6 [place] [address] (six) Medical hours. Branch hydralAZINE 2019- Yes 50mg Take 50 mg Univers 50 mg 2-04 by mouth 2 ity of tablet 22:23: (two) [place] 39 times Medical daily. Branch mirtazapine 2019- Yes 30mg Take 30 mg Univers 30 mg 2-04 by mouth ity of tablet 22:23: at [place] [address] bedtime. Medical Branch busPIRone 2019- Yes 10mg Take 10 mg Un rohit 10 mg 2-04 by mouth 2 ity of tablet 22:23: (two) [place] 39 times Medical daily. [place] clotrimazol 2019-09 Yes [id number] 1{appli Insert 1 Univers e 1 % 2-04 cator} Applicator ity of vaginal 00:00: into [place] cream 00 vagina at Medical bedtime. [place] clotrimazol 2019-09 Yes [id number] 1{appli Insert 1 Univers e 1 % 2-04 cator} Applicator ity of vaginal 00:00: into [place] cream 00 vagina at Medical bedtime. [place] clotrimazol 2019-09 Yes [id number] 1{appli Insert 1 Univers e 1 % 2-04 cator} Applicator ity of vaginal 00:00: into [place] cream 00 vagina at Medical bedtime. [place] clotrimazol 2019-09 Yes [id number] 1{appli Insert 1 Univers e 1 % 2-04 cator} Applicator ity of vaginal 00:00: into [place] cream 00 vagina at Medical bedtime. [place] clotrimazol 2019-09 Yes [id number] 1{appli Insert 1 Univers e 1 % 2-04 cator} Applicator ity of vaginal 00:00: into [place] cream 00 vagina at Medical bedtime. [place] clotrimazol 2019-09 Yes [id number] 1{appli Insert 1 Univers e 1 % 2-04 cator} Applicator ity of vaginal 00:00: into [place] cream 00 vagina at Medical bedtime. [place] clotrimazol 2019-09 Yes [id number] 1{appli Insert 1 Univers e 1 % 2-04 cator} Applicator ity of vaginal 00:00: into [place] cream 00 vagina at Medical bedtime. [place] clotrimazol 2019-09 Yes [id number] 1{appli Insert 1 Univers e 1 % 2-04 cator} Applicator ity of vaginal 00:00: into [place] cream 00 vagina at Medical bedtime. [place] clotrimazol 2019-09 Yes [id number] 1{appli Insert 1 Univers e 1 % 2-04 cator} Applicator ity of vaginal 00:00: into [place] cream 00 vagina at Medical bedtime. [place] clotrimazol 2019-09 Yes [id number] 1{appli Insert 1 Univers e 1 % 2-04 cator} Applicator ity of vaginal 00:00: into [place] cream 00 vagina at Medical bedtime. [place] clotrimazol 2019-09 Yes [id number] 1{appli Insert 1 Univers e 1 % 2-04 cator} Applicator ity of vaginal 00:00: into [place] cream 00 vagina at Medical bedtime. Branch clotrimazol 2019-09 Yes [id number] 1{appli Insert 1 Univers e 1 % 2-04 cator} Applicator ity of vaginal 00:00: into [place] cream 00 vagina at Medical bedtime. Branch clotrimazol 2019-09 Yes [id number] 1{appli Insert 1 Univers e 1 % 2-04 cator} Applicator ity of vaginal 00:00: into [place] cream 00 vagina at Medical bedtime. Branch clotrimazol 2019-09 Yes [id number] 1{appli Insert 1 Univers e 1 % 2-04 cator} Applicator ity of vaginal 00:00: into [place] cream 00 vagina at Medical bedtime. [place] clotrimazol 2019-09 Yes [id number] 1{appli Insert 1 Univers e 1 % 2-04 cator} Applicator ity of vaginal 00:00: into [place] cream 00 vagina at Medical bedtime. Branch Miscellaneo 2019-0 Yes [id number] QHS X U nivers [facility] 8-21 7days ity of Supply Misc 00:00: [place] 00 Medical Branch Miscellaneo 2019-0 Yes [id number] QHS X U nivers [facility] 8-21 7days ity of Supply Misc 00:00: [place] 00 Medical Branch Miscellaneo 2019-0 Yes [id number] QHS X U nivers Medical 8-21 7days ity of Supply Misc 00:00: [place] 00 Medical Branch Miscellaneo 2019-0 Yes [id number] QHS X U nivers Medical 8-21 7days ity of Supply Misc 00:00: [place] 00 Medical Branch Miscellaneo 2019-0 Yes [id number] QHS X U nivers Medical 8-21 7days ity of Supply Misc 00:00: [place] 00 Medical Branch Miscellaneo 2019-0 Yes [id number] QHS X U nivers [facility] 8-21 7days ity of Supply Misc 00:00: [place] 00 Medical Branch Miscellaneo 2019-0 Yes [id number] QHS X U nivers us Medical 8-21 7days ity of Supply Misc 00:00: [place] 00 Medical Branch Miscellaneo 2019-0 Yes [id number] QHS X U nivers us Medical 8-21 7days ity of Supply Misc 00:00: [place] 00 Medical Branch Miscellaneo 2019-0 Yes [id number] QHS X U nivers us Medical 8-21 7days ity of Supply Misc 00:00: [place] 00 Medical Branch Miscellaneo 2019-0 Yes [id number] QHS X U nivers us Medical 8-21 7days ity of Supply Misc 00:00: [place] 00 Medical Branch Miscellaneo 2019-0 Yes [id number] QHS X U nivers us Medical 8-21 7days ity of Supply Misc 00:00: [place] 00 Medical Branch Miscellaneo 2019-0 Yes [id number] QHS X U nivers us Medical 8-21 7days ity of Supply Misc 00:00: [place] 00 Medical Branch Miscellaneo 2019-0 Yes [id number] QHS X U nivers us Medical 8-21 7days ity of Supply Misc 00:00: [place] 00 Medical Branch Miscellaneo 2019-0 Yes [id number] QHS X U nivers us Medical 8-21 7days ity of Supply Misc 00:00: [place] 00 Medical Branch Miscellaneo 2019-0 Yes [id number] QHS X U nivers us Medical 8-21 7days ity of Supply Misc 00:00: [place] 00 Medical Branch Miscellaneo 2019-0 Yes [id number] QHS X U nivers us Medical 8-21 7days ity of Supply Misc 00:00: [place] 00 Medical Branch Miscellaneo 2019-0 Yes [id number] QHS X U nivers us Medical 8-21 7days ity of Supply Misc 00:00: [place] 00 Medical Branch Miscellaneo 2019-0 Yes [id number] QHS X U nivers us Medical 8-21 7days ity of Supply Misc 00:00: [place] 00 Medical Branch Miscellaneo 2019-0 Yes [id number] QHS X U nivers us Medical 8-21 7days ity of Supply Misc 00:00: [place] 00 Medical Branch Miscellaneo 2019-0 Yes [id number] QHS X U nivers us Medical 8-21 7days ity of Supply Misc 00:00: [place] 00 Medical Branch Miscellaneo 2019-0 Yes [id number] QHS X U nivers us Medical 8-21 7days ity of Supply Misc 00:00: [place] 00 Medical Branch Miscellaneo 2019-0 Yes [id number] QHS X U nivers us Medical 8-21 7days ity of Supply Misc 00:00: [place] 00 Medical Branch Miscellaneo 2019-0 Yes [id number] QHS X U nivers us Medical 8-21 7days ity of Supply Misc 00:00: [place] 00 Medical Branch busPIRone 2019-0 Yes 10mg Take 10 mg Un rohit 10 mg 3-14 by mouth 2 ity of tablet 21:09: (two) [place] 48 times Medical daily. Branch busPIRone 2018-0 Yes 10mg Take 10 mg Un rohit 10 mg 3-14 by mouth 2 ity of tablet 21:09: (two) [place] 48 times Medical daily. Branch busPIRone 2018-0 Yes 10mg Take 10 mg Un rohit 10 mg 3-14 by mouth 2 ity of tablet 21:09: (two) [place] 48 times Medical daily. Branch busPIRone 2018-0 Yes 10mg Take 10 mg Un rohit 10 mg 3-14 by mouth 2 ity of tablet 21:09: (two) [place] 48 times Medical daily. Branch busPIRone 2018-0 Yes 10mg Take 10 mg Un rohit 10 mg 3-14 by mouth 2 ity of tablet 21:09: (two) [place] 48 times Medical daily. Branch busPIRone 2019-0 Yes 10mg Take 10 mg Un rohit 10 mg 3-14 by mouth 2 ity of tablet 21:09: (two) [place] 48 times Medical daily. Branch busPIRone 2018-0 Yes 10mg Take 10 mg Un rohit 10 mg 3-14 by mouth 2 ity of tablet 21:09: (two) [place] 48 times Medical daily. Branch busPIRone 2018-0 Yes 10mg Take 10 mg Un rohit 10 mg 3-14 by mouth 2 ity of tablet 21:09: (two) [place] 48 times Medical daily. Branch PAROXETINE 2019-0 Yes 1 daily Univ ers HCL 20 MG 3-14 ity of ORAL TAB 21:09: [place] [address] Medical Branch metoprolol 2019-0 Yes 50mg Take 50 mg U nivers tartrate 3-14 by mouth 2 ity o f (LOPRESSOR) 21:09: (two) [place] 50 mg 31 times Medical tablet daily. Branch hydrOXYzine 2019-0 Yes 25mg Take 25 mg Univers (ATARAX) 25 3-14 by mouth ity of mg tablet 21:09: every 6 [place] [address] (six) Medical hours. Branch hydralAZINE 2019-0 Yes 50mg Take 50 mg Univers 50 mg 3-14 by mouth 2 ity of tablet 21:09: (two) [place] 31 times Medical daily. Branch mirtazapine 2019-0 Yes 30mg Take 30 mg Univers 30 mg 3-14 by mouth ity of tablet 21:09: at [place] [address] bedtime. Medical Branch PAROXETINE 2019-0 Yes 1 daily Univ ers HCL 20 MG 3-14 ity of ORAL TAB 21:09: [place] [address] Medical Branch metoprolol 2018-0 Yes 50mg Take 50 mg U nivers tartrate 3-14 by mouth 2 ity o f (LOPRESSOR) 21:09: (two) [place] 50 mg 31 times Medical tablet daily. Branch hydrOXYzine 2019-0 Yes 25mg Take 25 mg Univers (ATARAX) 25 3-14 by mouth ity of mg tablet 21:09: every 6 [place] [address] (six) Medical hours. Branch hydralAZINE 2019-0 Yes 50mg Take 50 mg Univers 50 mg 3-14 by mouth 2 ity of tablet 21:09: (two) [place] 31 times Medical daily. Branch mirtazapine 2019-0 Yes 30mg Take 30 mg Univers 30 mg 3-14 by mouth ity of tablet 21:09: at [place] [address] bedtime. Medical Branch PAROXETINE 2019-0 Yes 1 daily Univ ers HCL 20 MG 3-14 ity of ORAL TAB 21:09: [place] [address] Medical Branch metoprolol 2019-0 Yes 50mg Take 50 mg U nivers tartrate 3-14 by mouth 2 ity o f (LOPRESSOR) 21:09: (two) [place] 50 mg 31 times Medical tablet daily. Branch hydrOXYzine 2019-0 Yes 25mg Take 25 mg Univers (ATARAX) 25 3-14 by mouth ity of mg tablet 21:09: every 6 [place] [address] (six) Medical hours. Branch hydralAZINE 2019-0 Yes 50mg Take 50 mg Univers 50 mg 3-14 by mouth 2 ity of tablet 21:09: (two) [place] 31 times Medical daily. Branch mirtazapine 2019-0 Yes 30mg Take 30 mg Univers 30 mg 3-14 by mouth ity of tablet 21:09: at [place] [address] bedtime. Medical Branch PAROXETINE 2019-0 Yes 1 daily Univ ers HCL 20 MG 3-14 ity of ORAL TAB 21:09: [place] [address] Medical Branch metoprolol 2019-0 Yes 50mg Take 50 mg U nivers tartrate 3-14 by mouth 2 ity o f (LOPRESSOR) 21:09: (two) [place] 50 mg 31 times Medical tablet daily. Branch hydrOXYzine 2019-0 Yes 25mg Take 25 mg Univers (ATARAX) 25 3-14 by mouth ity of mg tablet 21:09: every 6 [place] [address] (six) Medical hours. Branch hydralAZINE 2019-0 Yes 50mg Take 50 mg Univers 50 mg 3-14 by mouth 2 ity of tablet 21:09: (two) [place] [address] times Medical daily. Branch mirtazapine 2019-0 Yes 30mg Take 30 mg Univers 30 mg 3-14 by mouth ity of tablet 21:09: at [place] [address] bedtime. Medical Branch PAROXETINE 2019-0 Yes 1 daily Univ ers HCL 20 MG 3-14 ity of ORAL TAB 21:09: [place] [address] Medical Branch metoprolol 2019-0 Yes 50mg Take 50 mg U nivers tartrate 3-14 by mouth 2 ity o f (LOPRESSOR) 21:09: (two) [place] 50 mg 31 times Medical tablet daily. Branch hydrOXYzine 2019-0 Yes 25mg Take 25 mg Univers (ATARAX) 25 3-14 by mouth ity of mg tablet 21:09: every 6 [place] [address] (six) Medical hours. Branch hydralAZINE 2019-0 Yes 50mg Take 50 mg Univers 50 mg 3-14 by mouth 2 ity of tablet 21:09: (two) [place] 31 times Medical daily. Branch mirtazapine 2019-0 Yes 30mg Take 30 mg Univers 30 mg 3-14 by mouth ity of tablet 21:09: at [place] [address] bedtime. Medical Branch PAROXETINE 2019-0 Yes 1 daily Univ ers HCL 20 MG 3-14 ity of ORAL TAB 21:09: [place] [address] Medical Branch metoprolol 2019-0 Yes 50mg Take 50 mg U nivers tartrate 3-14 by mouth 2 ity o f (LOPRESSOR) 21:09: (two) [place] 50 mg 31 times Medical tablet daily. Branch hydrOXYzine 2019-0 Yes 25mg Take 25 mg Univers (ATARAX) 25 3-14 by mouth ity of mg tablet 21:09: every 6 [place] [address] (six) Medical hours. Branch hydralAZINE 2019-0 Yes 50mg Take 50 mg Univers 50 mg 3-14 by mouth 2 ity of tablet 21:09: (two) [place] 31 times Medical daily. Branch mirtazapine 2019-0 Yes 30mg Take 30 mg Univers 30 mg 3-14 by mouth ity of tablet 21:09: at [place] [address] bedtime. Medical Branch PAROXETINE 2018-0 Yes 1 daily Univ ers HCL 20 MG 3-14 ity of ORAL TAB 21:09: [place] [address] Medical Branch metoprolol 2018-0 Yes 50mg Take 50 mg U nivers tartrate 3-14 by mouth 2 ity o f (LOPRESSOR) 21:09: (two) [place] 50 mg 31 times Medical tablet daily. Branch hydrOXYzine 2018-0 Yes 25mg Take 25 mg Univers (ATARAX) 25 3-14 by mouth ity of mg tablet 21:09: every 6 [place] [address] (six) Medical hours. Branch hydralAZINE 2018-0 Yes 50mg Take 50 mg Univers 50 mg 3-14 by mouth 2 ity of tablet 21:09: (two) [place] 31 times Medical daily. Branch mirtazapine 2019-0 Yes 30mg Take 30 mg Univers 30 mg 3-14 by mouth ity of tablet 21:09: at [place] [address] bedtime. Medical Branch PAROXETINE 2019-0 Yes 1 daily Univ ers HCL 20 MG 3-14 ity of ORAL TAB 21:09: [place] [address] Medical Branch metoprolol 2019-0 Yes 50mg Take [...] mouth 2 ity of tablet 21:09: (two) [place] 31 times Medical daily. Branch mirtazapine 2019-0 Yes 30mg Take 30 mg Univers 30 mg 3-14 by mouth ity of tablet 21:09: at [place] [address] bedtime. Medical Branch cloniDINE 2018-0 Yes .1mg Take 1 Univer s 0.1 mg 2-22 tablet by ity of tablet 00:00: mouth at [place] 00 bedtime as Medical needed Branch (SBP>180 or DBP>120). cloniDINE 2018-0 Yes .1mg Take 1 Univer s 0.1 mg 2-22 tablet by ity of tablet 00:00: mouth at [place] 00 bedtime as Medical needed Branch (SBP>180 or DBP>120). cloniDINE 2018-0 Yes .1mg Take 1 Univer s 0.1 mg 2-22 tablet by ity of tablet 00:00: mouth at [place] 00 bedtime as Medical needed Branch (SBP>180 or DBP>120). cloniDINE 2018-0 Yes .1mg Take 1 Univer s 0.1 mg 2-22 tablet by ity of tablet 00:00: mouth at [place] 00 bedtime as Medical needed Branch (SBP>180 or DBP>120). cloniDINE 2018-0 Yes .1mg Take 1 Univer s 0.1 mg 2-22 tablet by ity of tablet 00:00: mouth at [place] 00 bedtime as Medical needed Branch (SBP>180 or DBP>120). cloniDINE 2018-0 Yes .1mg Take 1 Univer s 0.1 mg 2-22 tablet by ity of tablet 00:00: mouth at [place] 00 bedtime as Medical needed Branch (SBP>180 or DBP>120). cloniDINE 2018-0 Yes .1mg Take 1 Univer s 0.1 mg 2-22 tablet by ity of tablet 00:00: mouth at [place] 00 bedtime as Medical needed Branch (SBP>180 or DBP>120). cloniDINE 2018-0 Yes .1mg Take 1 Univer s 0.1 mg 2-22 tablet by ity of tablet 00:00: mouth at [place] 00 bedtime as Medical needed Branch (SBP>180 or DBP>120). cloniDINE 2018-0 Yes .1mg Take 1 Univer s 0.1 mg 2-22 tablet by ity of tablet 00:00: mouth at [place] 00 bedtime as Medical needed Branch (SBP>180 or DBP>120). cloniDINE 2018-0 Yes .1mg Take 1 Univer s 0.1 mg 2-22 tablet by ity of tablet 00:00: mouth at [place] 00 bedtime as Medical needed Branch (SBP>180 or DBP>120). cloniDINE 2018-0 Yes .1mg Take 1 Univer s 0.1 mg 2-22 tablet by ity of tablet 00:00: mouth at [place] 00 bedtime as Medical needed Branch (SBP>180 or DBP>120). cloniDINE 2018-0 Yes .1mg Take 1 Univer s 0.1 mg 2-22 tablet by ity of tablet 00:00: mouth at [place] 00 bedtime as Medical needed Branch (SBP>180 or DBP>120). cloniDINE 2018-0 Yes .1mg Take 1 Univer s 0.1 mg 2-22 tablet by ity of tablet 00:00: mouth at [place] 00 bedtime as Medical needed Branch (SBP>180 or DBP>120). cloniDINE 2018-0 Yes .1mg Take 1 Univer s 0.1 mg 2-22 tablet by ity of tablet 00:00: mouth at [place] 00 bedtime as Medical needed Branch (SBP>180 or DBP>120). cloniDINE 2018-0 Yes .1mg Take 1 Univer s 0.1 mg 2-22 tablet by ity of tablet 00:00: mouth at [place] 00 bedtime as Medical needed Branch (SBP>180 or DBP>120). cloniDINE 2018-0 Yes .1mg Take 1 Univer s 0.1 mg 2-22 tablet by ity of tablet 00:00: mouth at [place] 00 bedtime as Medical needed Branch (SBP>180 or DBP>120). cloniDINE 2018-0 Yes .1mg Take 1 Univer s 0.1 mg 2-22 tablet by ity of tablet 00:00: mouth at [place] 00 bedtime as Medical needed Branch (SBP>180 or DBP>120). cloniDINE 2018-0 Yes .1mg Take 1 Univer s 0.1 mg 2-22 tablet by ity of tablet 00:00: mouth at [place] 00 bedtime as Medical needed Branch (SBP>180 or DBP>120). cloniDINE 2018-0 Yes .1mg Take 1 Univer s 0.1 mg 2-22 tablet by ity of tablet 00:00: mouth at [place] 00 bedtime as Medical needed Branch (SBP>180 or DBP>120). cloniDINE 2018-0 Yes .1mg Take 1 Univer s 0.1 mg 2-22 tablet by ity of tablet 00:00: mouth at [place] 00 bedtime as Medical needed Branch (SBP>180 or DBP>120). cloniDINE 2018-0 Yes .1mg Take 1 Univer s 0.1 mg 2-22 tablet by ity of tablet 00:00: mouth at [place] 00 bedtime as Medical needed Branch (SBP>180 or DBP>120). cloniDINE 2018-0 Yes .1mg Take 1 Univer s 0.1 mg 2-22 tablet by ity of tablet 00:00: mouth at [place] 00 bedtime as Medical needed Branch (SBP>180 or DBP>120). cloniDINE 2018-0 Yes .1mg Take 1 Univer s 0.1 mg 2-22 tablet by ity of tablet 00:00: mouth at [place] 00 bedtime as Medical needed Branch (SBP>180 or DBP>120). cloniDINE 2018-0 Yes .1mg Take 1 Univer s 0.1 mg 2-22 tablet by ity of tablet 00:00: mouth at [place] 00 bedtime as Medical needed Branch (SBP>180 or DBP>120). Immunizations Ordered Filled Immunization Date Status Comments [facility] e Immunization Name Name Influenza Virus 2020-08-26 Completed Universit y of Vaccine Quad .5 mL 00:00:00 [place] Medical IM 6+ MO Branch Influenza Virus 2020-08-26 Completed Universit y of Vaccine Quad .5 mL 00:00:00 [place] Medical IM 6+ MO Branch Influenza Virus 2020-08-26 Completed Universit y of Vaccine Quad .5 mL 00:00:00 [place] Medical IM 6+ MO Branch Influenza Virus 2020-08-26 Completed Universit y of Vaccine Quad .5 mL 00:00:00 [place] [facility] IM 6+ MO Branch Influenza Virus 2020-08-26 Completed Universit y of Vaccine Quad .5 mL 00:00:00 [place] [facility] IM 6+ MO Branch Influenza Virus 2020-08-26 Completed Universit y of Vaccine Quad .5 mL 00:00:00 [place] Medical IM 6+ MO Branch Influenza Virus 2020-08-26 Completed Universit y of Vaccine Quad .5 mL 00:00:00 [place] [facility] IM 6+ MO Branch Influenza Virus [...] y of Vaccine Quad .5 mL 00:00:00 [place] [facility] IM 6+ MO Branch Influenza Virus 2020-08-26 Completed Universit y of Vaccine Quad .5 mL 00:00:00 [place] Medical IM 6+ MO Branch Influenza Virus 2020-08-26 Completed Universit y of Vaccine Quad .5 mL 00:00:00 [place] Medical IM 6+ MO Branch Vital Signs Vital Name Observation Time Observation Value Comments Source Systolic blood 2021-05-15 08:20:00 144 mm[Hg] Univer sity of pressure [facility] Diastolic blood 2021-05-15 08:20:00 71 mm[Hg] Unive rsity of pressure [facility] Heart rate 2021-05-15 08:20:00 61 /min Universi ty of [facility] Body temperature 2021-05-15 08:20:00 36.89 Mariia Univ ersity of [facility] Respiratory rate 2021-05-15 08:20:00 16 /min Univ ersity of [facility] Oxygen saturation in 2021-05-15 08:20:00 99 /min [facility] Arterial blood by [facility] Pulse oximetry Branch Systolic blood 2020-09-08 01:35:00 148 mm[Hg] Univer sity of pressure [facility] Diastolic blood 2020-09-08 01:35:00 75 mm[Hg] Unive rsity of pressure [facility] Heart rate 2020-09-08 01:35:00 81 /min [facility]i ty [facility] [place] [facility] Respiratory rate 2020-09-08 01:35:00 18 /min Univ ersity of [place] [facility] Oxygen saturation in 2020-09-08 01:35:00 97 /min University of Arterial blood by [facility] Pulse oximetry Branch Body temperature 2020-09-07 22:17:00 36.67 Mariia Univ ersity of [place] [facility] Body weight 2020-09-07 22:17:00 117.935 kg [facility] [place] [facility] BMI 2020-09-07 22:17:00 43.27 kg/m2 [facility] [place] [facility] Systolic blood 2020-09-08 01:35:00 148 mm[Hg] Univer sity of pressure [place] [facility] Diastolic blood 2020-09-08 01:35:00 75 mm[Hg] Unive rsity of pressure [place] [facility] Heart rate 2020-09-08 01:35:00 81 /min [facility]i [facility] [place] [facility] Respiratory rate 2020-09-08 01:35:00 18 /min Univ ersity of [place] [facility] Oxygen saturation in 2020-09-08 01:35:00 97 /min University of Arterial blood by [facility] Pulse oximetry Branch Body temperature 2020-09-07 22:17:00 36.67 Mariia Univ ersity [facility] [place] [facility] Body weight 2020-09-07 22:17:00 117.935 kg [facility]i ty [facility] [place] [facility] BMI 2020-09-07 22:17:00 43.27 kg/m2 [facility] [place] [facility] Systolic blood 2020-09-07 22:01:00 197 mm[Hg] Univer sity of pressure [place] [facility] Diastolic blood 2020-09-07 22:01:00 94 mm[Hg] Unive rsity of pressure [place] [facility] Heart rate 2020-09-07 22:01:00 89 /min [facility]i [facility] [place] [facility] Body temperature 2020-09-07 20:44:00 36.33 Mariia Univ ersity [facility] [place] [facility] Respiratory rate 2020-09-07 20:44:00 16 /min Univ ersity [facility] [place] [facility] Body height 2020-09-07 20:44:00 165.1 cm [facility]i [facility] [place] [facility] Body weight 2020-09-07 20:44:00 118.207 kg [facility] [place] [facility] BMI 2020-09-07 20:44:00 43.37 kg/m2 [facility]i ty [facility] [place] [facility] Systolic blood 2020-09-07 22:01:00 197 mm[Hg] Univer sity of pressure [place] [facility] Diastolic blood 2020-09-07 22:01:00 94 mm[Hg] Unive rsity of pressure [place] [facility] Heart rate 2020-09-07 22:01:00 89 /min [facility]i ty [facility] [place] [facility] Body temperature 2020-09-07 20:44:00 36.33 Mariia Univ ersity of [facility] Respiratory rate 2020-09-07 20:44:00 16 /min Univ ersity of [place] [facility] Body height 2020-09-07 20:44:00 165.1 cm [facility]i ty [facility] [place] [facility] Body weight 2020-09-07 20:44:00 118.207 kg Universi ty of [facility] Branch BMI 2020-09-07 20:44:00 43.37 kg/m2 Universi ty of [facility] Branch Systolic blood 2020-08-27 02:06:53 149 mm[Hg] Univer sity of pressure [facility] Branch Diastolic blood 2020-08-27 02:06:53 79 mm[Hg] Unive rsity of pressure [place] [facility] Heart rate 2020-08-27 02:06:53 67 /min [facility]i [facility] [place] [facility] Body temperature 2020-08-27 02:06:53 36.5 Mariia Univ ersity of [facility] Respiratory rate 2020-08-27 02:06:53 15 /min Univ ersity of [facility] Oxygen saturation in 2020-08-27 02:06:53 98 /min University of Arterial blood by [facility] Pulse oximetry Branch Body weight 2020-08-26 23:36:00 116.574 kg [facility]i [facility] [place] [facility] BMI 2020-08-26 23:36:00 42.77 kg/m2 Universi ty of [facility] Branch Systolic blood 2020-08-26 22:10:00 177 mm[Hg] Univer sity of pressure [facility] Branch Diastolic blood 2020-08-26 22:10:00 88 mm[Hg] Unive rsity of pressure [place] [facility] Heart rate 2020-08-26 22:08:00 72 /min Universi ty of [facility] Branch Body temperature 2020-08-26 22:08:00 36.39 Mariia Univ ersity of [facility] Branch Respiratory rate 2020-08-26 22:08:00 16 /min [facility] Body height 2020-08-26 22:08:00 165.1 cm Universi ty of [facility] Body weight 2020-08-26 22:08:00 116.745 kg Universi ty [facility] BMI 2020-08-26 22:08:00 42.83 kg/m2 Universi ty [facility] Systolic blood 2019-05-13 21:11:00 142 mm[Hg] Univer sity of pressure [facility] Diastolic blood 2019-05-13 21:11:00 78 mm[Hg] [facility] Systolic blood 2019-05-13 20:20:00 173 mm[Hg] Univer sity of pressure [facility] Diastolic blood 2019-05-13 20:20:00 88 mm[Hg] Unive [facility] Heart rate 2019-05-13 20:15:00 75 /min Universi [facility] Body temperature 2019-05-13 20:15:00 36.28 Mariia [facility] Body height 2019-05-13 20:15:00 165.1 cm Universi ty [facility] Body weight 2019-05-13 20:15:00 116.234 kg Universi [facility] BMI 2019-05-13 20:15:00 42.64 kg/m2 [facility] Procedures Procedure Date / Time Performing Clinician Source Performed CT ABDOMEN PELVIS W 2021-05-15 07:09:39 Suresh Oleary [facility] COVID-19 (ID NOW RAPID 2021-05-15 03:17:00 [facility] TESTING) Medical Branch PHOSPHORUS 2021-05-15 03:16:00 Suresh Oleary [facility] LIPASE 2021-05-15 03:16:00 Suresh Oleary [facility] MAGNESIUM 2021-05-15 03:16:00 Suresh Oleary [facility] TROPONIN I 2021-05-15 03:16:00 Suresh Oleary [facility] COMP. METABOLIC PANEL 2021-05-15 03:16:00 Suresh Oleary [facility] ([id number]) [facility] CBC WITH DIFF 2021-05-15 03:16:00 Suresh Oleary [facility] D-DIMER 2021-05-15 03:16:00 Mamta [facility] URINALYSIS 2021-05-15 03:16:00 Mamta [facility] N-TERMINAL PRO-BNP 2021-05-15 03:16:00 Suresh Oleary [facility] XR CHEST 2 VW 2021-05-15 02:55:22 Mamta Suresh [facility] CONSENT/REFUSAL FOR 2021-05-15 02:26:49 Doctor Unadavid, [facility] DIAGNOSIS AND TREATMENT [facility] CONSENT/REFUSAL FOR 2020-09-07 22:14:49 Doctor Unadavid, [facility] DIAGNOSIS AND TREATMENT [facility] ASSIGNMENT OF BENEFITS 2020-09-07 20:23:20 Doctor Cornelius, [facility] [place] XR CHEST 1 VW 2020-08-27 00:41:33 Carmenza Mckinley [facility] TROPONIN I 2020-08-27 00:34:00 Carmenza Mckinley [facility] COMP. METABOLIC PANEL 2020-08-27 00:34:00 Carmenza Mckinley [facility] ([id number]) [facility] CBC WITH DIFF 2020-08-27 00:34:00 Carmenza Mckinley [facility] PROTHROMBIN TIME / INR 2020-08-27 00:34:00 Cramenza Mckinley [facility] ACTIVATED PARTIAL THRMPLAS 2020-08-27 00:34:00 [facility] 2020-08-27 00:34:00 Carmenza Mckinley [facility] NOTICE OF PRIVACY 2020-08-26 23:26:21 Doctor Cornelius, [facility] PRACTICES [facility] CONSENT/REFUSAL FOR 2020-08-26 23:25:28 Doctor Cornelius [facility] DIAGNOSIS AND TREATMENT [facility] URINE CULTURE 2020-08-26 22:59:00 Key Richardson [facility] FLU VACC ([phone]), 6+ 2020-08-26 22:48:43 Key Richardson [facility] MONTHS, IM, QUAD [facility] POCT URINALYSIS W/O 2020-08-26 22:15:00 Key Richardson [facility] [place] SPECIFIC GRAVITY [facility] POCT URINALYSIS 2019-05-13 20:43:00 Devika Hirsch Universit y [facility] NO SHOW OR MISSED 2019-05-13 20:00:36 Doctor Unassigned, Univers [facility] APPOINTMENT POLICY [facility] ACKNOWLEDGEMENT Encounters Start End Encounter Admission Attending Care Care Encounter Source Date/Time Date/Time Type Type Clinicians Facility Department ID 2021-07-24 Emergency [facility] [id number] Univers 17:15:12 ity [facility] 2021-07-22 Emergency [facility] [id number] Univers 11:44:33 ity [facility] 2021-07-22 Emergency [facility] [id number] Univers 09:23:58 ity [facility] 2021-05-14 2021-05-15 Emergency Mamta, TRAU[place] [id number] Univers 21:27:00 03:51:00 Suresh Wood CENTER [id number] [id number] [id number] [address] 2021-01-23 2021-01-23 [facility] [id number] Univers 13:39:55 23:59:00 Encounter Key C SPECIALTY [id number] ity of C[id number] [id number] Tn dical [place] [id number] [facility] 2021-01-23 2021-01-23 [facility] [id number] 13:39:55 23:59:00 Encounter Key C SPECIALTY [id number] CARE [id number] CENTER AT [id number] [address] 2021-01-23 2021-01-23 [facility] [id number] Univers 09:15:00 09:15:00 KEY [id number] ity o f [facility] 2021-01-23 2021-01-23 Outpatient R AKINSIPE, [facility] [id number] Univers 00:00:00 00:00:00 KEY ity o f [facility] 2021-01-23 2021-01-23 Telephone [facility] [id number] [facility] 00:00:00 00:00:00 Key C RELIEF MAP MODELER [id number] ity of REGIONAL [id number] [place] as MATERNAL [id number] Med ical & CHILD [address] [place] [address] 2021-01-23 2021-01-23 Telephone [facility] [id number] 00:00:00 00:00:00 Key C RELIEF MAP MODELER [id number] REGIONAL [id number] MATERNAL [id number] & CHILD [address] [place] [address] 2021-01-13 2021-01-13 Outpatient R AKINSIPE, [facility] [id number] Univers 13:15:00 13:15:00 KEY [id number] ity o [facility] 2021-01-13 2021-01-13 Outpatient R AKINSIPE, [facility] [id number] Univers 13:15:00 13:15:00 KEY ity o [facility] 2021-01-02 2021-01-02 Telephone [facility] [id number] Univers 00:00:00 00:00:00 Key C RELIEF MAP MODELER [id number] ity of REGIONAL [id number] [place] as MATERNAL [id number] [place] ical & CHILD [address] [place] [address] 2021-01-02 2021-01-02 [facility] 1.2.840.114 [id number] 00:00:00 00:00:00 Key C RELIEF MAP MODELER [id number] REGIONAL [id number] MATERNAL [id number] & CHILD 107 [facility] 2020-12-07 2020-12-07 Outpatient R AKINSIPE, [facility] [id number] Univers 15:00:00 15:00:00 KEY [id number] ity o f [facility] 2020-12-07 2020-12-07 Outpatient R AKINSIPE, [facility] [id number] Univers 15:00:00 15:00:00 KEY ity o f [facility] 2020-12-07 2020-12-07 Outpatient R AKINSIPE, [facility] [id number] Univers 15:00:00 15:00:00 KEY ity o [facility] 2020-11-23 2020-11-23 Outpatient R AKINSIPE, [facility] [id number] Univers 14:15:00 14:15:00 KEY [id number] ity o [facility] 2020-11-23 2020-11-23 Outpatient R AKINSIPE, [facility] [id number] Univers 00:00:00 00:00:00 KEY ity o [facility] 2020-11-11 2020-11-11 Telephone [facility] [id number] Univers 00:00:00 00:00:00 Key C RELIEF MAP MODELER [id number] ity of REGIONAL [id number] [place] as MATERNAL [id number] Med ical & CHILD 107 [facility] 2020-11-11 2020-11-11 Telephone [facility] 1.2.840.114 [id number] 00:00:00 00:00:00 Key C RELIEF MAP MODELER [id number] REGIONAL [id number] MATERNAL [id number] & CHILD 107 [facility] 2020-10-17 2020-10-17 Letter [facility] [id number] Univers 00:00:00 00:00:00 (Out) Key C RELIEF MAP MODELER [id number] ity of REGIONAL [id number] [place] as MATERNAL [id number] Med ical & CHILD 107 [facility] 2020-10-17 2020-10-17 Letter Akinsipe, [facility] [id number] 00:00:00 00:00:00 (Out) Key Ricks RELIEF MAP MODELER [id number] [facility] [id number] MATERNAL [id number] & CHILD 107 [facility] 2020-10-07 2020-10-07 Outpatient R AKINSIPE, [facility] [id number] Univers 15:00:00 15:00:00 KEY [id number] ity o [facility] 2020-10-07 2020-10-07 Outpatient R AKINSIPE, [facility] [id number] Univers 15:00:00 15:00:00 KEY meyery o f [facility] 2020-10-04 2020-10-04 Outpatient R AKINSIPE, [facility] [id number] Univers 14:15:00 14:15:00 KEY [id number] ity o f [facility] 2020-10-04 2020-10-04 Outpatient R AKINSIPE, [facility] [id number] Univers 14:15:00 14:15:00 KEY meyery o [facility] 2020-09-20 2020-09-20 Outpatient R AKINSIPE, [facility] [id number] Univers 13:30:00 13:30:00 KEY [id number] mitchy o [facility] 2020-09-20 2020-09-20 Outpatient R AKINSIPE, [facility] [id number] Univers 13:30:00 13:30:00 KEY meyery o [facility] 2020-09-07 2020-09-07 Emergency [facility] [id number] Univers 16:29:00 20:08:00 Yenny Hall 350.1.13.10 [facility] 4.2.7.2.686 Arturo s [place] [id number] [address] 2020-09-07 2020-09-07 Emergency [facility] [id number] 16:29:00 20:08:00 Yenny Hall 350.1.13.10 [facility] [place] 42.7.2.686 [place] [id number] 2020-09-07 2020-09-07 Office Akinsipe, [facility] [id number] Univers 14:27:17 15:59:19 Visit Key Ricks RELIEF MAP MODELER 350.1.13.10 ity [facility] [id number] [place] as MATERNAL [id number] Med ical & CHILD [address] [place] [address] 2020-09-07 2020-09-07 Office Akinsipe, [facility] [id number] 14:27:17 15:59:19 Visit Key Ricks RELIEF MAP MODELER 350.1.13.10 [facility] [id number] MATERNAL [id number] & CHILD [address] [place] [address] 2020-09-07 2020-09-07 Outpatient R AKINSIPE, [facility] [id number] Univers 14:30:00 14:30:00 KEY [id number] ity o [facility] 2020-09-07 2020-09-07 Outpatient R AKINSIPE, [facility] [id number] Univers 14:30:00 14:30:00 KEY meyery o [facility] 2020-09-07 2020-09-07 Orders Doctor ARIK [id number] Univers 00:00:00 00:00:00 Only Unassigned, FARAZ 350.1.13.10 ity of [facility] 4.2.7.2.686 [place] as [id number] [address] 2020-09-05 2020-09-05 Outpatient R HIRSCH, [facility] [id number] Univers 15:00:00 15:00:00 DEVIKA [id number] ity o [facility] 2020-09-02 2020-09-02 Outpatient R AKINSIPE, [facility] [id number] Univers 10:30:00 10:30:00 KEY [id number] ity o [facility] 2020-09-02 2020-09-02 Outpatient R AKINSIPE, [facility] [id number] Univers 10:30:00 10:30:00 KEY ity o f [facility] 2020-08-26 2020-08-26 Emergency Mckinley, [facility] [id number] Univers 17:30:00 20:13:00 Carmenza Fitzgerald [place] 350.1.13.10 i ty [facility] [id number] [place] [facility] [id number] [address] 2020-08-26 2020-08-26 Office Debra [facility] [id number] Univers 15:55:58 17:12:33 Visit Key C RELIEF MAP MODELER 350.1.13.[address] [facility] 4.2.7.2.686 [place] as MATERNAL [id number] [place] ical & CHILD [address] [place] [address] 2020-08-26 2020-08-26 Office Debra [facility] [id number] Univers 16:51:05 17:11:04 Visit Key Ricks RELIEF MAP MODELER 350.1.13.[address] [facility] [id number] [place] as MATERNAL [id number] [facility] & CHILD [address] [place] [address] 2020-08-26 2020-08-26 Nurse Visit, [facility] Nurse [facility] 1.2 .[id number] Univers 16:20:49 16:35:49 Visit Key Richardson RELIEF MAP MODELER 350.1.13. [address] [facility] [id number] [place] as MATERNAL [id number] [facility] & CHILD [address] [place] [address] 2020-08-26 2020-08-26 Outpatient R [facility] [id number] Univers 15:30:00 15:30:00 [id number] ity of [facility] 2020-08-26 2020-08-26 Outpatient R [facility] [id number] Univers 15:30:00 15:30:00 ity of [facility] 2020-08-26 2020-08-26 Outpatient [facility] [id number] Univers 15:15:00 15:15:00 KEY ity o f [facility] 2020-08-26 2020-08-26 Outpatient R DEBRA [facility] [id number] Univers 15:00:00 15:00:00 KEY ity o f [facility] 2019-12-14 2019-12-14 Telephone Ananda MEMARINO [id number] Univers 00:00:00 00:00:00 Rejiguy Zelaya RELIEF MAP MODELER [id number] [facility] 4.2.7.2.686 [place] as MATERNAL [id number] Med ical & CHILD [address] [place] [address] 2019-05-13 2019-05-13 Office Ananda [facility] [id number] Univers 15:01:34 16:41:19 Visit Devika Zelaya RELIEF MAP MODELER 350.1.13.[address] [facility] [id number] [place] as MATERNAL [id number] [facility] & CHILD [address] [place] [address] 2019-05-13 2019-05-13 Orders Doctor ARIK [id number] Univers 00:00:00 00:00:00 Only Unassigned, FARAZ 350.1.13.10 ity of [place] [facility] 4.2.7.2.686 [place] as [id number] [address] 2009-12-23 2009-12-26 [id number] Univers 23:02:00 14:30:00 KILLIAN 0 ity o f [facility] Results Test Description Test Time Test Comments Results Result Comments Source SARS-CoV-2 (COVID-19), RT-PCR/TMA 2021-10-12 15:39:22 Test Item Value Reference Range Interpretation Comme nts SARS-CoV-2 INTERPRETATION NEGATIVE SEE NOTE S ARS-CoV-2 RNA NOT (test code = 65826) DETECTED Negative results do not preclude SARS-C [...] is h igh. SOURCE (test code = 22900) NOT SPECIFIED Note: Methodology is Pratima Lisha Real-Time RT-PCR. The expected r esult or reference range is NEGATIVE (Not Detected). For more information regarding COVID -19 testing to include clinica linformation, methodology det ail, intended use, FDA author ization andrecommended fact sheets for patients or a [facility] providers, see Circuport Announcement: S ARS-CoV-2 (COVID-19) by N AAT at URL below (note,fact shee ts are provided by method given in report:https:// www.[employer]/c linicians/melani t-communications/ Alternatively, see downloadable PDF fact sheet at:https://www. [employer]/COVID -19-RT-PCR UNLESS OTHERWISE INDIC ATED, ALL TESTING PERFORMED [facility], [facility]. [address] [place] [address] LABORATORY DIRE CTOR: RAUL WALDRON M.D. CLIA NUMBER [id number] [facility] [place] [id number] TROPONIN [id number] 04:08:08 Test Item Value Reference Interpretation Comments Range TROPONIN I (test 0.002 ng/mL See_Comment [Automated code = [id number]) message] The system which generated this result [...] biotin. Lab Interpretation Normal (test code = 01915-2) [facility] [id number] 04:08:08 Test Item Value Reference Range Interpretation Comments NT-proBNP (test code 210 pg/mL See_Comment H [Autom ated = 8615189402) message] The system which generated this result transmitted reference range : <=125. The reference range was not used to interpret this result as normal/abnormal . ESTEFANI (test code = ESTEFANI) Biotin has been reported to cause a negative bias, interpret results relative to patient's use of biotin. Lab Interpretation Abnormal (test code = 20978-6) [facility] 04:00:38 Test Item Value Reference Range Interpretation Comments APPEARANCE (test code = Clear Clear 6089874818) COLOR (test code = Yellow Yellow 6162074268) PH (test code = 4.8-8.0 2364932715) SP GRAVITY (test code = 1.003-1.030 8559435002) GLU U QUAL (test code = Normal Normal 4635602145) BLOOD (test code = Negative Negative 3329607759) KETONES (test code = Negative Negative 3069194122) PROTEIN (test code = Negative Negative 2887-8) UROBILIN (test code = Normal Normal 1344343942) BILIRUBIN (test code = Negative Negative 8433579549) NITRITE (test code = Negative Negative 7195172969) LEUK ANGELICA (test code = Negative Negative 5739666087) RBC/HPF (test code = See_Comment [Autom ated message] 1841506730) The system [employer] generated this result transmitted ref erence range: 0 - 3 HP F. The reference range was not used to int erpret this result as normal/abnormal . WBC/HPF (test code = See_Comment [Autom ated message] 4540343946) The system [employer] generated this result transmitted ref erence range: 0 - 5 HP F. The reference range was not used to int erpret this result as normal/abnormal . BACTERIA (test code = Negative Negative 5998604815) SQ EPITH (test code = See_Comment H [Auto mated message] 8649038514) The system [employer] generated this result transmitted ref erence range: <=2 HPF. The reference range was not used to int erpret this result as normal/abnormal . Lab Interpretation (test Abnormal code = 02123-8) [facility]. METABOLIC PANEL (56765)2021-05-15 03:54:11 Test Item Value Reference Range Interpretation Comments NA (test code = 134 mmol/L 135-145 L 9119892719) K (test code = 4.0 mmol/L 3.5-5.0 5936075016) CL (test code = 100 mmol/L 98-108 8333109125) CO2 TOTAL (test code = 25 mmol/L 23-31 2691832262) AGAP (test code = 2-16 2009211526) BUN (test code = 12 mg/dL 7-23 2516582371) GLUCOSE (test code = 97 mg/dL 70-110 1385951174) CREATININE (test code = 0.82 mg/dL 0.50-1.04 1469916633) TOTAL BILI (test code = 0.4 mg/dL 0.1-1.4 0591658241) CALCIUM (test code = 9.0 mg/dL 8.6-10.6 2185539190) T PROTEIN (test code = 7.2 g/dL 6.3-8.2 9894761303) ALBUMIN (test code = 4.3 g/dL 3.5-5.0 0247000115) ALK PHOS (test code = 74 U/L 34-122 2053980590) ALTv (test code = 40 U/L 5-35 H 1742-6) AST(SGOT) (test code = 34 U/L 13-40 7956424136) eGFR (test code = mL/min/1.73m2 7861663700) ESTEFANI (test code = ESTEFANI) Association of [...] tests). Lab Interpretation Abnormal (test code = 34943-5) [facility] 03:54:11 Test Item Value Reference Range Interpretation Comments PHOSPHORUS (test code = 2103344199) 4.0 mg/dL 2.5-5.0 Lab Interpretation (test code = Normal 99657-0) [facility] 03:54:11 Test Item Value Reference Range Interpretation Comments MAGNESIUM (test code = 4742103150) 1.9 mg/dL 1.7-2.4 Lab Interpretation (test code = Normal 02474-2) [facility] 03:54:11 Test Item Value Reference Range Interpretation Comments LIPASE (test code = 6388488627) 124 U/L 0-220 Lab Interpretation (test code = Normal 11073-0) [facility]D-[id number] 03:53:41 Test Item Value Reference Interpretation Comments Range D-DIMER (test code = <0.21 See_Comment [Autom ated 6548462395) message] The system which generated this result [...] diagnosis. Lab Interpretation Normal (test code = 14037-3) [facility] (ID NOW RAPID TESTING)2021-05-15 03:50:30 Test Item Value Reference Range Interpretation Comments SARS-CoV-2 Rapid ID NOW Not Detected Not Detected (test code = 23123-7) ESTEFANI (test code = ESTEFANI) ID NOW COVID-19 Assay is an isothermal nucleic acid amplification test intended for the qualitative detection of nucleic acid from SARS-CoV-2 viral RNA in nasopharyngeal ([employer]) specimens. It is used under Emergency Use [...] indicated. Lab Interpretation Normal (test code = 79420-6) [facility] WITH [id number] 03:37:28 Test Item Value Reference Range Interpretation Comments WBC (test code = See_Comment [Automated 6490-2) message] The sy stem which generated this [...] RDW-SD (test code = 45.2 fL 39.0-49.9 09418-4) RDW-CV (test code = 12.8 % 12.0-15.5 788-0) PLT (test code = See_Comment [Automated 777-3) message] The sy stem which generated this result transmitted reference range : 166 - 358 10*3/ ?L. The reference r aaron was not used to interpret this result as normal/abnormal . MPV (test code = 8.7 fL 9.5-12.9 L 57856-3) NRBC/100 WBC (test See_Comment [Automat ed code = 1590516364) message] The system which generated this result transmitted reference range : 0.0 - 10.0 /100 WBCs. The refer ence range was not u sed to interpret th is result as normal/abnormal . NRBC x10^3 (test code <0.01 See_Comment [Auto mated = 7285411460) message] The s ystem which generated this result transmitted reference range : 10*3/?L. The reference range was not used to interpret this result as normal/abnormal . GRAN MAT (NEUT) % 63.9 % (test code = 770-8) IMM GRAN % (test code 0.20 % = 7273704432) LYMPH % (test code = 25.4 % 736-9) MONO % (test code = 8.5 % 5905-5) EOS % (test code = 1.3 % 713-8) BASO % (test code = 0.7 % 706-2) GRAN MAT x10^3(ANC) 5.37 10*3/uL 1.88-7.09 (test code = 8463050807) IMM GRAN x10^3 (test <0.03 0.00-0.06 code = 6691425738) LYMPH x10^3 (test code 2.13 10*3/uL 1.32-3.29 = 731-0) MONO x10^3 (test code 0.71 10*3/uL 0.33-0.92 = 742-7) EOS x10^3 (test code = 0.11 10*3/uL 0.03-0.39 711-2) BASO x10^3 (test code 0.06 10*3/uL 0.01-0.07 = 704-7) Lab Interpretation Abnormal (test code = 06770-6) [facility] [id number] 17:23:00 Test Item Value Reference Range Interpretation Comments URINE CULTURE (test > 100,000 CFU/mL mixed code = 630-4) aerobic organisms - suggests endogenous microbial contamination [facility] [id number] 17:23:00 Test Item Value Reference Range Interpretation Comments URINE CULTURE (test > 100,000 CFU/mL mixed code = 630-4) aerobic organisms - suggests endogenous microbial contamination [facility]TR[facility] [id number] 01:33:00 Test Item Value Reference Range Interpretation Comments TROPONIN I (test <0.012 See_Comment [Automated code = 8676398232) message] The system which generated this result [...] ? Lab Interpretation Normal (test code = 67360-6) [facility]XR CHEST 1 [id number] 01:31:40 Cardiomegaly with mild prominence of the [...] nota sensitive modality for thedetection of masses. [facility], Radiant Results Inft User - 08/26/2020 7:32 [...] edema or pneumonitis. Please correlate clinically.RL: 135 [facility] METABOLIC PANEL (19306)2020-08-27 01:23:00 Test Item Value Reference Range Interpretation Comments NA (test code = 133 mmol/L 135-145 L 4691318038) K (test code = 4.1 mmol/L 3.5-5 1989408976) CL (test code = 99 mmol/L 98-108 8586513109) CO2 TOTAL (test code = 26 mmol/L 23-31 4728386581) AGAP (test code = 2-16 2409596575) BUN (test code = 8 mg/dL 7-23 2678621571) GLUCOSE (test code = 102 mg/dL 70-110 8707989919) CREATININE (test code = 0.68 mg/dL 0.5-1.04 3857871212) TOTAL BILI (test code = 0.5 mg/dL 0.1-1.9 5208429380) CALCIUM (test code = 9.5 mg/dL 8.6-10.6 2445763059) T PROTEIN (test code = 8.1 g/dL 6.3-8.2 1792472068) ALBUMIN (test code = 4.7 g/dL 3.5-5 0937689537) ALK PHOS (test code = 94 U/L 34-122 9191106767) ALTv (test code = 37 U/L 5-35 H 1742-6) AST(SGOT) (test code = 36 U/L 13-40 8969239940) eGFR Calculation mL/min/1.73m2 (Non-) (test code = 4390693159) eGFR Calculation mL/min/1.73m2 () (test code = 3494943627) ESTEFANI (test code = ESTEFANI) Association of [...] tests). Lab Interpretation Abnormal (test code = 17377-2) [facility]2020-[facility]-05 00:59:00 Test Item Value Reference Range Interpretation Comments APPEARANCE (test code = Clear Clear 4787790078) COLOR (test code = Yellow Yellow 7751250799) PH (test code = 4.8-8.0 9977656134) SP GRAVITY (test code = 1.003-1.030 7543306676) GLU U QUAL (test code = Negative Negative 8476315093) BLOOD (test code = Negative Negative 3669087185) KETONES (test code = Trace Negative A 9174999062) PROTEIN (test code = Negative Negative 2887-8) UROBILIN (test code = 0.2 mg/dL See_Comment [Auto mated message] 4642751487) The system [employer] generated this result transmit luis miguel reference range : 0-1.0 mg/dL. Th e reference range was not used to interpret this result as normal/abnormal . BILIRUBIN (test code = Negative Negative 3946374995) NITRITE (test code = Negative Negative 4124656959) LEUK ANGELICA (test code = Negative Negative 0627829279) RBC/HPF (test code = <1 See_Comment [Autom ated message] 2633010266) The system [employer] generated this result transmit luis miguel reference range : 0 - 3 HPF. The refe rence range was not u sed to interpret th is result as normal/abnormal . WBC/HPF (test code = <1 See_Comment [Autom ated message] 0138211884) The system [employer] generated this result transmit luis miguel reference range : 0 - 5 HPF. The refe rence range was not u sed to interpret th is result as normal/abnormal . BACTERIA (test code = Negative Negative 2822341104) Lab Interpretation (test Abnormal code = 42413-8) [facility]ACT[facility] THRMPLAS [id number] 00:52:00 Test Item Value Reference Range Interpretation Comments APTT Patient (test See_Comment [Automat ed code = 3173-2) message] The system which generated this result transmitted reference range : 23 - 38 Seconds . The reference range was not used to interpr et this result as normal/abnormal . ESTEFANI (test code = ESTEFANI) The [facility] patient population mean normal value for aPTT is 30 seconds. Lab Interpretation Normal (test code = 03035-6) [facility] HospitalPROTHROMBIN TIME / [id number] 00:50:00 Test Item Value Reference Range Interpretation [...] tions. Lab Interpretation (test Normal code = 99593-0) [facility] HospitalCBC WITH [id number] 00:45:00 Test Item Value Reference Range Interpretation Comments WBC (test code = See_Comment [Automated 4390-2) message] The sy stem which generated this result transmitted reference range : 4.30 - 11.10 10*3/?L. The reference range was not used to interpret this result as normal/abnormal . RBC (test code = See_Comment [Automated 329-8) message] The sy stem which generated this [...] RDW-SD (test code = 41.3 fL 39-49.9 76055-7) RDW-CV (test code = 11.5 % 12-15.5 L 788-0) PLT (test code = See_Comment [Automated 777-3) message] The sy stem which generated this result transmitted reference range : 166 - 358 10*3/ ?L. The reference r aaron was not used to interpret this result as normal/abnormal . MPV (test code = 9.0 fL 9.5-12.9 L 71588-4) NRBC/100 WBC (test See_Comment [Automat ed code = 4094850771) message] The system which generated this result transmitted reference range : 0.0 - 10.0 /100 WBCs. The refer ence range was not u sed to interpret th is result as normal/abnormal . NRBC x10^3 (test code <0.01 See_Comment [Auto mated = 1653660463) message] The s ystem which generated this result transmitted reference range : 10*3/?L. The reference range was not used to interpret this result as normal/abnormal . GRAN MAT (NEUT) % 66.0 % (test code = 770-8) IMM GRAN % (test code 0.10 % = 4264161697) LYMPH % (test code = 21.5 % 736-9) MONO % (test code = 7.8 % 5905-5) EOS % (test code = 4.2 % 713-8) BASO % (test code = 0.4 % 706-2) GRAN MAT x10^3(ANC) 5.16 10*3/uL 1.88-7.09 (test code = 9633958327) IMM GRAN x10^3 (test <0.03 0-0.06 code = 2672975683) LYMPH x10^3 (test code 1.68 10*3/uL 1.32-3.29 = 731-0) MONO x10^3 (test code 0.61 10*3/uL 0.33-0.92 = 742-7) EOS x10^3 (test code = 0.33 10*3/uL 0.03-0.39 711-2) BASO x10^3 (test code 0.03 10*3/uL 0.01-0.07 = 704-7) Lab Interpretation Abnormal (test code = 25607-9) [facility] URINALYSIS W/O SPECIFIC [id number] 22:15:00 Test Item Value Reference Range Interpretation [...] code = 3257) Trace Negative - Negative [facility] acute hospital URINALYSIS W/O SPECIFIC [id number] 22:15:00 Test Item Value Reference Range Interpretation [...] code = 3257) Trace Negative - Negative [facility] acute hospital URINALYSIS W SPECIFIC [id number] 20:43:00 Test Item Value Reference Range Interpretation [...] POCT U APPEAR (test code = 3267) [facility] acute hospital URINALYSIS W SPECIFIC [id number] 20:43:00 Test Item Value Reference Range Interpretation [...] POCT U APPEAR (test code = 3267) [facility] acute hospital URINALYSIS W SPECIFIC [id number] 20:43:00 Test Item Value Reference Range Interpretation [...] POCT U APPEAR (test code = 3267) [facility] acute hospital URINALYSIS W SPECIFIC [id number] 20:43:00 Test Item Value Reference Range Interpretation [...] POCT U APPEAR (test code = 3267) [facility] acute hospital URINALYSIS W SPECIFIC [id number] 20:43:00 Test Item Value Reference Range Interpretation [...] POCT U APPEAR (test code = 3267) General acute hospital URINALYSIS W SPECIFIC [id number] 20:43:00 Test Item Value Reference Range Interpretation [...] POCT U APPEAR (test code = 3267) [facility]
--- NOTE | 2021-11-19 01:51 | EDPHYS ---
Physician Documentation [facility] Name: Carmel Rodriguez Age: 61 yrs Sex: Female : 1960 Arrival Date: 11/19/2021 Time: 01:36 Bed 20 Private MD: ED Physician Eleuterio Laboy HPI: 11/19 01:46 This 61 yrs old Female presents to ER via Unassigned with complaints of kb shortness of breath. 01:46 The patient has shortness of breath at rest. Onset: The symptoms/episode began/occurred kb 5 week(s) ago. Duration: The symptoms are continuous. The patient's shortness of breath is aggravated by exertion, supine position. Associated signs and symptoms: Pertinent positives: chest pain. Severity of symptoms: At their worst the symptoms were mild moderate in the emergency department the symptoms are unchanged. The patient has not experienced similar symptoms in the past. The patient has been recently seen at the [facility] Emergency Department, today, by me, for similar complaints labs were performed, X-rays were performed. Pt was here earlier for shortness of breath with intermittent substernal chest pain for 5 weeks. Workup revealed mild pulmonary edema. Pt was given lasix which she said helped, but tonight she was still having shortness of breath when she laid down so she was unable to sleep. . Historical: - Allergies: 02:22 ACETAMINOPHEN; lp1 02:22 CALCIUM CARBONATE; lp1 02:22 EXCEDRIN; lp1 02:22 Excedrin PM; lp1 02:22 Ibuprofen; lp1 02:22 NSAIDS; lp1 02:22 Toradol; lp1 - Home Meds: 02:22 buspirone 10 mg Oral tab 3 tabs 2 times per day [Active]; hydralazine 50 mg Oral tab 1 lp1 tab 2 times per day [Active]; hydroxyzine HCl 50 mg Oral tab 1 tab daily [Active]; losartan 100 mg Oral tab 1 tab once daily [Active]; metoprolol tartrate 50 mg Oral tab 1 tab 2 times per day [Active]; mirtazapine 30 mg Oral tab 1 tab once daily [Active]; pantoprazole 40 mg Oral TbEC 1 tab once daily [Active]; Vitamin D2 50,000 unit Oral cap 21894 unit WEEKLY [Active]; - PMHx: 02:22 Anxiety; Depression; Hypertension; lp1 - PSHx: 02:22 section; lp1 - Immunization history:: Adult Immunizations up to date. - Social history:: Smoking status: Patient denies any tobacco usage or history of. ROS: 01:46 Constitutional: Negative for fever, chills, and weight loss. kb 01:46 Respiratory: Positive for cough, dyspnea on exertion, orthopnea, shortness of breath. 01:46 All other systems are negative. Exam: 01:46 Constitutional: This is a well developed, well nourished patient who is awake, alert, kb and in no acute distress. Head/Face: Normocephalic, atraumatic. ENT: Moist Mucous membranes Cardiovascular: Regular rate and rhythm with a normal S1 and S2. No gallops, murmurs, or rubs. No pulse deficits. Respiratory: Respirations even and unlabored. No increased work of breathing. Talking in full sentences Skin: Warm, dry with normal turgor. Normal color. MS/ Extremity: Pulses equal, no cyanosis. Neurovascular intact. Full, normal range of motion. Neuro: Awake and alert, GCS 15, oriented to person, place, time, and situation. Moves all extremities. Normal gait. Psych: Awake, alert, with orientation to person, place and time. Behavior, mood, and affect are within normal limits. Vital Signs: 01:45 BP 182 / 91; Pulse 83; Resp 19; Temp 98.1(O); Pulse Ox 99% on R/A; Weight 112.94 kg lp1 (R); Height 5 ft. 4 in. (162.56 cm); Pain 0/10; 01:45 Body Mass Index 42.74 (112.94 kg, 162.56 cm) lp1 MDM: 01:36 Patient medically screened. kb 01:46 Data reviewed: vital signs, nurses notes. Data interpreted: Pulse oximetry: on room air kb is 97 %. Interpretation: normal. Counseling: I had a detailed discussion with the patient and/or guardian regarding: the historical points, exam findings, and any diagnostic results supporting the discharge/admit diagnosis, lab results, radiology results, the need for further work-up and treatment in the hospital. Physician consultation: Regine ESCAMILLA was contacted at 01:46, regarding admission, to the telemetry unit. patient's condition, and will see patient in ED. 11/19 01:45 Order name: Basic Metabolic Panel kb 11/19 01:45 Order name: CBC with Diff kb 11/19 01:45 Order name: LFT's kb 11/19 01:45 Order name: Magnesium kb 11/19 01:45 Order name: NT PRO-BNP kb 11/19 01:45 Order name: PT-INR kb 11/19 01:45 Order name: Troponin HS kb 11/19 01:46 Order name: Basic Metabolic Panel EDMS 11/19 01:46 Order name: CBC with Automated Diff EDMS 11/19 01:46 Order name: Liver (Hepatic) Function EDMS 11/19 01:46 Order name: Magnesium EDMS 11/19 01:46 Order name: NT PRO-BNP EDMS 11/19 01:46 Order name: Troponin High Sensitivity EDMS 11/19 01:45 Order name: XRAY Chest (1 view) kb 11/19 01:45 Order name: EKG; Complete Time: 01:46 kb 11/19 01:45 Order name: Cardiac monitoring; Complete Time: 02:17 kb 11/19 01:45 Order name: EKG - Nurse/Tech; Complete Time: 02:17 kb 11/19 01:45 Order name: IV Saline Lock; Complete Time: 02:04 kb 11/19 01:45 Order name: Labs collected and sent; Complete Time: 02:04 kb 11/19 01:45 Order name: O2 Per Protocol; Complete Time: 02:22 kb 11/19 01:45 Order name: O2 Sat Monitoring; Complete Time: 02:22 kb Administered Medications: No medications were administered Disposition: 05:03 Co-signature as Attending Physician, Eleuterio Laboy MD. [email or web address] Disposition Summary: 11/19/21 01:50 Hospitalization Ordered Hospitalization Status: Observation kb Provider: [place] Location: Telemetry/MedSurg (observation) kb Condition: Stable kb Problem: new kb Symptoms: are unchanged kb Bed/Room Type: Standard Room Assignment: 232(11/19/21 03:16) mw Diagnosis - Acute pulmonary edema kb - Dyspnea kb Forms: - Medication Reconciliation Form kb - SBAR form kb Signatures: Dispatcher [employer] EDWI Arabella Fischer FNP-C FNP-Ckb Webb, Martha, RN RN mw Yael Sutherland RN RN lp1 Eleuterio Laboy MD MD mh7 Corrections: (The following items were deleted from the chart) 02:17 02:16 SARS-COV-2 RT PCR+MOL.LAB.BRZ ordered. EDMS EDMS 03:16 01:50 kb odilia
[2021-11-19 02:16] LABS: Protime INR 1.04
[2021-11-19 02:17] LABS: Absolute Lymphocytes (CBC) 1.5 K/uL (0.7-4.9); Hematocrit 41.6 % (36.0-45.0); Lymphocytes % 19.2 % (15.3-44.8); MPV 6.8 fL (7.6-11.3); RBC Red Blood Cell Count 4.45 M/uL (3.86-4.86)
[2021-11-19 02:57] LABS: ALT/SGPT 22 U/L (12-78); AST/SGOT 11 U/L (15-37); Albumin 4.1 g/dL (3.4-5.0); Alkaline Phosphatase 104 U/L (45-117); BUN Blood Urea Nitrogen 11 mg/dL (7-18); Bicarbonate 26 mmol/L (21-32); Bilirubin Direct < 0.1 mg/dL (0-0.2); Bilirubin Total 0.3 mg/dL (0.2-1.0); Glucose Level 116 mg/dL (74-106); NT PRO-BNP 141 pg/mL (<125); Potassium 3.4 mmol/L (3.5-5.1); Protein, Total 8.4 g/dL (6.4-8.2); Sodium Level 133 mmol/L (136-145)
--- NOTE | 2021-11-19 03:19 | P.HP ---
Certification for Inpatient Patient admitted to: Observation With expected LOS: <2 Midnights Patient will require the following post-hospital care: None Practitioner: I am a practitioner with admitting privileges, knowledge of patient current condition, hospital course, and medical plan of care. Services: Services provided to patient in accordance with Admission requirements found in Title 42 Section 412.3 of the Code of Federal Regulations Patient History Date of Service: 11/19/21 Reason for admission: SHOB/CHF History of Present Illness: Patient is a 61-year-old female with hypertension and anxiety who presented to the ED today with complaints of chest pain and shortness of breath for 5 weeks. Her work-up revealed a BNP of 145 and chest x-ray showed mild CHF. Troponin was negative x3. She was given Lasix and her shortness of breath improved. She was discharged however came back via EMS shortly after with the same complaints. She reports that shortness of breath is worse when she lays down. Same work-up was completed and was unchanged. Patient has not seen a stock holder before. Have consulted cardiology and ordered an echo. Patient's anxiety is likely contributing to the shortness of breath and chest pain. Will admit for observation. Allergies acetaminophen [From Excedrin Back & Body] Allergy (Unknown, Verified 01/28/18 11:30) UNKNOWN aspirin [From Excedrin Back & Body] Allergy (Unknown, Verified 01/28/18 11:30) UNKNOWN calcium carbonate [From Excedrin Back & Body] Allergy (Unknown, Verified 01/28/18 11:30) UNKNOWN ibuprofen Allergy (Unknown, Verified 01/28/18 11:30) UNKNOWN diphenhydramine citrate [From Excedrin PM] Allergy (Unverified 01/28/18 11:30) Unknown hydralazine Allergy (Unverified 01/28/18 11:30) Unknown Excedrin Allergy (Severe, Uncoded 01/28/18 11:30) Hives/Rash Home medications list reviewed: Yes Home Medications: ALPRAZolam [Xanax*] 0.25 mg PO TIDP PRN #60 tab 04/04/13 Metoprolol Tartrate [Lopressor*] 50 mg PO BID 04/04/13 PARoxetine HCL [Paxil*] 20 mg PO DAILY 04/04/13 ALPRAZolam [Xanax*] 0.25 mg PO BID PRN #20 tab 11/02/17 Buspirone HCl [Buspar*] 10 mg PO BID #120 tab 11/02/17 Hydralazine [Apresoline*] 50 mg PO BID #120 tab 11/02/17 Metoprolol Tartrate [Lopressor*] 50 mg PO BID #60 tab 11/02/17 Pantoprazole [Protonix Tab*] 40 mg PO DAILYAC #30 tab 11/02/17 Sodium Chloride Tab [Sodium Chloride*] 1 gm PO Q8HR #90 tab 11/02/17 hydrOXYzine HCL [Atarax] 50 mg PO BEDTIME 11/02/17 - Past Medical/Surgical History Diabetic: No -: HTN -: Anxiety -: Depression -: Psychosocial/ Personal History: patient lives at home with her son - Family History Mother -: Hypertension Notes: Anxiety - Social History Smoking Status: Never smoker Alcohol use: Yes CD- Drugs: No Caffeine use: No Place of Residence: Home Review of Systems 10-point ROS is otherwise unremarkable Respiratory: Shortness of Breath Cardiovascular: Chest Pain, Orthopnea Physical Examination - Physical Exam General: Alert, In no apparent distress, Other (Anxious anxious and tearful) HEENT: Atraumatic, PERRLA, Mucous membr. moist/pink, EOMI, Sclerae nonicteric Neck: Supple, 2+ carotid pulse no bruit, No LAD, Without JVD or thyroid abnormality Respiratory: Clear to auscultation bilaterally, Normal air movement Cardiovascular: Regular rate/rhythm, Normal S1 S2 Gastrointestinal: Normal bowel sounds, No tenderness Musculoskeletal: No tenderness Integumentary: No rashes Neurological: Normal speech, Normal strength at 5/5 x4 extr, Normal tone, Normal affect - Studies Laboratory Data (last 24 hrs) 11/19/21 02:00: PT 12.0, INR 1.04 11/19/21 02:00: WBC 7.80 D, Hgb 14.8, Hct 41.6, Plt Count 291 11/19/21 02:00: Sodium 133 L, Potassium 3.4 L, BUN 11, Creatinine 0.82, Glucose 116 H, Magnesium 2.0, Total Bilirubin 0.3, AST 11 L, ALT 22, Alkaline Phosphatase 104 Assessment and Plan - Problems (Diagnosis) (1) CHF (congestive heart failure) Current Visit: Yes Status: Acute Qualifiers: Heart failure type: unspecified Heart failure chronicity: acute Qualified Code(s): I50.9 - Heart failure, unspecified (2) Shortness of breath Current Visit: Yes Status: Acute (3) HTN (hypertension) Onset Date: 10/15/17 Current Visit: Yes Status: Chronic Qualifiers: Hypertension type: primary hypertension Qualified Code(s): I10 - Essential (primary) hypertension (4) Morbid obesity Onset Date: 11/01/17 Current Visit: Yes Status: Chronic (5) Chest pain Current Visit: Yes Status: Acute Qualifiers: Chest pain type: chest pain on breathing Qualified Code(s): R07.1 - Chest pain on breathing; R07.81 - Pleurodynia (6) Depression with anxiety Current Visit: Yes Status: Chronic - Plan -Patient shortness of likely a combination of mild CHF and anxiety. Have echo ordered for the morning and cardiology consulted -Monitor for worsening signs of fluid overload. 1200 cc/day fluid restriction. Patient had Lasix in the ED but so will hold off for now -Patient sodium and potassium were low, will replete -Obtain a continue home medications DVT PPx: Lovenox Code: Full Discharge Plan: Home Plan to discharge in: 24 Hours - Advance Directives Does patient have a Living Will: No Does patient have a Durable POA for Healthcare: No - Code Status/Comfort Care Code Status Assessed: Yes (Full) Physician Review: Patient Assessed, Agree with Above Assessment and Plan Critical Care: No Time Spent Managing Pts Care (In Minutes): 70
[2021-11-19] MEDS ORDERED: ALPRAZOLAM 0.25 MG TABLET PO PRN (03:43)
[2021-11-19] MEDS ORDERED: ONDANSETRON 4 MG/2 ML VIAL IV PRN (03:43)
--- NOTE | 2021-11-19 04:11 | ER ---
Nurse's Notes [facility] Name: Carmel Rodriguez Age: 61 yrs Sex: Female : 1960 Arrival Date: 11/19/2021 Time: 01:36 Bed 20 Private MD: Diagnosis: Acute pulmonary edema;Dyspnea Presentation: 11/19 01:45 Chief complaint: EMS states: Called for patient with shortness of breath x 5 weeks, lp1 discharged from ED earlier tonight for same complaint. 01:45 Coronavirus screen: At this time, the client does not indicate any symptoms associated lp1 with coronavirus-19. Ebola Screen: No symptoms or risks identified at this time. Initial Sepsis Screen: Does the patient meet any 2 criteria? No. Patient's initial sepsis screen is negative. Does the patient have a suspected source of infection? No. Patient's initial sepsis screen is negative. Risk Assessment: Do you want to hurt yourself or someone else? Patient reports no desire to harm self or others. Onset of symptoms was November 19, 2021. 01:45 Method Of Arrival: EMS: [facility] lp1 01:45 Acuity: CHRISTINE 3 lp1 Historical: - Allergies: 02:22 ACETAMINOPHEN; lp1 02:22 CALCIUM CARBONATE; lp1 02:22 EXCEDRIN; lp1 02:22 Excedrin PM; lp1 02:22 Ibuprofen; lp1 02:22 NSAIDS; lp1 02:22 Toradol; lp1 - Home Meds: 02:22 buspirone 10 mg Oral tab 3 tabs 2 times per day [Active]; hydralazine 50 mg Oral tab 1 lp1 tab 2 times per day [Active]; hydroxyzine HCl 50 mg Oral tab 1 tab daily [Active]; losartan 100 mg Oral tab 1 tab once daily [Active]; metoprolol tartrate 50 mg Oral tab 1 tab 2 times per day [Active]; mirtazapine 30 mg Oral tab 1 tab once daily [Active]; pantoprazole 40 mg Oral TbEC 1 tab once daily [Active]; Vitamin D2 50,000 unit Oral cap 18065 unit WEEKLY [Active]; - PMHx: 02:22 Anxiety; Depression; Hypertension; lp1 - PSHx: 02:22 section; lp1 - Immunization history:: Adult Immunizations up to date. - Social history:: Smoking status: Patient denies any tobacco usage or history of. Vital Signs: 01:45 BP 182 / 91; Pulse 83; Resp 19; Temp 98.1(O); Pulse Ox 99% on R/A; Weight 112.94 kg lp1 (R); Height 5 ft. 4 in. (162.56 cm); Pain 0/10; 01:45 Body Mass Index 42.74 (112.94 kg, 162.56 cm) lp1 ED Course: 01:36 Patient arrived in ED. kb 01:36 [facility]. kb 01:36 Eleuterio Laboy MD is Attending Physician. kb 01:50 [place] is Hospitalizing Provider. kb 01:50 Patient has correct armband on for positive identification. Placed in gown. Bed in low lp1 position. media monitor on. Pulse ox on. NIBP on. 02:04 Initial lab(s) drawn, by sc, sent to lab. Inserted saline lock: 22 gauge in right lt3 antecubital area, using aseptic technique. 02:13 Brie Main RN is Primary Nurse. sf1 02:17 EKG done, by ED staff, reviewed by Eleuterio Laboy MD. lt3 02:21 XRAY Chest (1 view) In Process Unspecified. EDMS 02:21 Triage completed. lp1 02:21 Arm band placed on right wrist. lp1 02:22 NT PRO-BNP Sent. sf1 02:22 Troponin High Sensitivity Sent. sf1 02:22 Magnesium Sent. sf1 02:22 Liver (Hepatic) Function Sent. sf1 02:22 Basic Metabolic Panel Sent. sf1 02:22 Basic Metabolic Panel Sent. sf1 02:22 CBC with Diff Sent. sf1 02:22 LFT's Sent. sf1 02:22 Magnesium Sent. sf1 02:22 NT PRO-BNP Sent. sf1 02:22 Troponin HS Sent. sf1 Administered Medications: No medications were administered Outcome: 01:50 Decision to Hospitalize by Provider. kb 04:11 Patient left the ED. sf1 Signatures: Dispatcher [employer] [facility] Arabella Fischer FNP-C FNP-Yael Ramirez RN RN lp1 Jolly Webster lt3 Fillers, Brie, RN RN sf1
[2021-11-19 04:39] LABS: Absolute Lymphocytes (CBC) 2.4 K/uL (0.7-4.9); Hematocrit 41.2 % (36.0-45.0); Lymphocytes % 25.4 % (15.3-44.8); MPV 6.9 fL (7.6-11.3); RBC Red Blood Cell Count 4.38 M/uL (3.86-4.86)
[2021-11-19 04:47] VITALS: BMI 43.5
[2021-11-19 05:12] LABS: Bilirubin Total 0.5 mg/dL (0.2-1.0); Potassium 3.5 mmol/L (3.5-5.1); Protein, Total 8.3 g/dL (6.4-8.2); Thyroid Stimulating Hormone 3.33 uIU/mL (0.360-3.740)
[2021-11-19] MEDS: ALBUTEROL 2.5 MG/3 ML NEB SOL NEB SCH ×3 (07:54→20:20)
--- NOTE | 2021-11-19 08:24 | RAD REPORT ---
EXAM DESCRIPTION: RAD - Chest Single View - 11/19/2021 2:21 am CLINICAL HISTORY: CHEST PAIN COMPARISON: Chest Single View dated 11/18/2021; Chest Single View dated 05/10/2021; Chest Single View dated 04/19/2019; Chest Single View dated 01/25/2018 FINDINGS: Lines: None. Lungs: No evidence of edema or pneumonia. Pleural: No significant pleural effusions or pneumothorax. Cardiac: Cardiomegaly Bones: No acute fractures. Other: IMPRESSION: No acute cardiopulmonary disease.
[2021-11-19] MEDS ORDERED: POTASSIUM CL SA 10 MEQ TAB PO ONE (09:00)
[2021-11-19] MEDS: ENOXAPARIN 40 MG/0.4 ML SQ SCH (09:26)
--- NOTE | 2021-11-19 11:26 | P.CNS ---
Date of Consult: 11/19/21 Chief Complaint: SHOB/CHF History of Present Illness: Patient is 61 years of age Wolof-speaking with hypertension admitted to the emergency department with chest pain shortness of breath given Lasix was discharged came back again denies any prior history of smoking no fever or chill s Allergies acetaminophen [From Excedrin Back & Body] Allergy (Unknown, Verified 01/28/18 11:30) UNKNOWN aspirin [From Excedrin Back & Body] Allergy (Unknown, Verified 01/28/18 11:30) UNKNOWN calcium carbonate [From Excedrin Back & Body] Allergy (Unknown, Verified 01/28/18 11:30) UNKNOWN ibuprofen Allergy (Unknown, Verified 01/28/18 11:30) UNKNOWN diphenhydramine citrate [From Excedrin PM] Allergy (Unverified 01/28/18 11:30) Unknown hydralazine Allergy (Unverified 01/28/18 11:30) Unknown Excedrin Allergy (Severe, Uncoded 01/28/18 11:30) Hives/Rash Home Medications: Amlodipine [Norvasc] 10 mg PO DAILY 11/19/21 Buspirone HCl [Buspar] 10 mg PO BID 11/19/21 Ergocalciferol (Vitamin D2) [Vitamin D2] 1 cap PO EVERY 7TH DAY 11/19/21 Hydralazine HCl 50 mg PO BID 11/19/21 Loratadine [Claritin*] 10 mg PO DAILY 11/19/21 Metoprolol Tartrate [Lopressor*] 50 mg PO BID 11/19/21 Metronidazole 500 mg PO BID 11/19/21 Mirtazapine 11/19/21 Pantoprazole [Protonix Tab*] 40 mg PO DAILY 11/19/21 hydrOXYzine HCL [Atarax] 50 mg PO DAILY 11/19/21 predniSONE [Prednisone*] 20 mg PO DAILY 11/19/21 - Past Medical/Surgical History Diabetic: No -: HTN -: Anxiety -: Depression -: TB 10 years ago -: Psychosocial/ Personal History: patient lives at home with her son - Family History Mother Medical History: Hypertension Notes: Anxiety - Social History Smoking Status: Never smoker Alcohol use: No CD- Drugs: No Caffeine use: Yes Place of Residence: Home Review of Systems Respiratory: Shortness of Breath Cardiovascular: Chest Pain Physical Examination Temp Pulse Resp BP Pulse Ox 98 F 81 18 108/53 L 96 11/19/21 08:00 11/19/21 08:00 11/19/21 08:00 11/19/21 08:00 11/19/21 08:00 General: Alert, In no apparent distress, Oriented x3 Respiratory: Clear to auscultation bilaterally, Friction rub Cardiovascular: Regular rate/rhythm, Normal S1 S2 Gastrointestinal: Normal bowel sounds, Soft and benign Musculoskeletal: No clubbing Laboratory Data (last 24 hrs) 11/19/21 02:00: PT 12.0, INR 1.04 11/19/21 02:00: WBC 7.80 D, Hgb 14.8, Hct 41.6, Plt Count 291 11/19/21 02:00: Sodium 133 L, Potassium 3.4 L, BUN 11, Creatinine 0.82, Glucose 116 H, Magnesium 2.0, Total Bilirubin 0.3, AST 11 L, ALT 22, Alkaline Phosphatase 104 - Problems (1) Shortness of breath Current Visit: Yes Status: Acute Plan: Patient is 61 years of age admitted with dyspnea chest discomfort with a history of hypertension troponins are negative may have underlying diastolic dysfunction risk for sleep apnea patient's BNP is low consult cardiology to rule out coronary artery disease patient has a history of anxiety depression hypertension have added low-dose spironolactone oxygenation is normal probably need to have an outpatient sleep study stable underlying struct of airways disease
--- NOTE | 2021-11-19 13:22 | RAD REPORT ---
EXAM DESCRIPTION: CT - Chest For Pe Angio - 11/19/2021 1:00 pm CLINICAL HISTORY: Morbid obesity with SOB COMPARISON: Chest For Pe Angio dated 05/10/2021hest For Pe Angio dated 05/10/2021 FINDINGS: Chest Wall: No suspicious thyroid nodules or pathologic lymphadenopathy. Lungs: Mild mosaic lung attenuation. This is likely secondary to hypoventilation. No evidence of hannah a or consolidative airspace disease. Pleura: No significant effusions or pneumothorax. Mediastinum/kristal: No pathologic lymphadenopathy. Pulmonary arteries/Aorta: No filling defect identified. No aortic aneurysm. Heart: No significant pericardial effusion. Normal heart size. Upper abdomen: No acute abnormality. Bones: No acute abnormality. All CT scans are performed using dose optimization technique as appropriate and may include automated exposure control or mA/KV adjustment according to patient size. IMPRESSION: Negative for pulmonary embolism. No acute findings within the chest.
[2021-11-19] MEDS: SPIRONOLACTONE 25 MG TABLET PO SCH (14:00)
--- NOTE | 2021-11-19 16:02 | P.PN ---
Date of Service: 11/19/21 Patient seen and examined. Unexplained dyspnea. I suspect obesity hypoventilation and obstructive sleep apnea versus diastolic heart failure. Seen by pulmonary. Aldactone added. CTA thorax negative for pulmonary embolism. No acute infiltrate. Negative troponin. Obtain echocardiogram. Patient will need outpatient evaluation for obstructive sleep apnea and COPD. Continue bronchodilators. Resume home antianxiety medications.
[2021-11-19] MEDS: BUSPIRONE HCL 5 MG TABLET PO SCH (21:21)
[2021-11-20] MEDS: ALBUTEROL 2.5 MG/3 ML NEB SOL NEB SCH ×4 (02:30→19:24)
[2021-11-20 05:53] LABS: Absolute Lymphocytes (CBC) 1.7 K/uL (0.7-4.9); Hematocrit 38.1 % (36.0-45.0); MPV 7.1 fL (7.6-11.3); RBC Red Blood Cell Count 3.98 M/uL (3.86-4.86)
[2021-11-20 06:10] LABS: Albumin 3.4 g/dL (3.4-5.0); Bilirubin Total 0.5 mg/dL (0.2-1.0); Potassium 3.6 mmol/L (3.5-5.1); Protein, Total 7.1 g/dL (6.4-8.2)
[2021-11-20] MEDS: ENOXAPARIN 40 MG/0.4 ML SQ SCH (08:46)
[2021-11-20] MEDS: BUSPIRONE HCL 5 MG TABLET PO SCH ×2 (08:47→21:24)
--- NOTE | 2021-11-20 08:51 | EKG ---
Test Date: 2021-11-18 Test Time: 17:26:09 Sheet Metal Foreman: CELIO MEASUREMENT RESULTS: Intervals: Rate: 73 VA: 152 QRSD: 74 QT: 394 QTc: 434 [place]: P: 16 VA: 152 QRS: 47 T: -11 INTERPRETIVE STATEMENTS: Normal sinus rhythm Nonspecific T wave abnormality Abnormal ECG Compared to ECG 11/18/2021 15:24:15 T-wave abnormality now present Electronically Signed On 11-20-21 08:47:55 VETERANS ADVISER by Kishore Bateman
[2021-11-20] MEDS: SPIRONOLACTONE 25 MG TABLET PO SCH (08:57)
[2021-11-20] MEDS ORDERED: LORATADINE 10 MG TAB PO SCH (09:00)
[2021-11-20] MEDS ORDERED: PANTOPRAZOLE 40MG TABLET PO SCH (09:00)
[2021-11-20] MEDS ORDERED: MIRTAZAPINE 15 MG TAB PO SCH (09:00)
--- NOTE | 2021-11-20 13:05 | PN ---
The patient had been seen by Dr. Stewart for shortness of breath. The patient has a history of hypert ension, anxiety, and depression. Today, she does not have any more shortness of breath. Dr. Orlando palumbo saw her. He think she may have diastolic dysfunction and sleep apnea. Echocardiogram is still pen ding. She does complain of some mid epigastric pain, which more likely is gastric in nature. She is on hydralazine, buspirone, losartan, metoprolol, and pantoprazole. I will continue her present stormy men, see what the echocardiogram shows, send her home on low-dose Lasix. May need to have an outpatient Lexiscan down the road. SANTHOSH/ABHISHEK Voice ID: [id number] Report ID: [id number]
[2021-11-20 13:15] LABS: Urine Appearance CLOUDY (Clear); Urine Bilirubin NEGATIVE (Negative); Urine Blood TRACE (Negative); Urine Color YELLOW (Yellow); Urine Glucose NEGATIVE (Negative); Urine Protein NEGATIVE (Negative); Urine Urobilinogen 0.2 mg/dL (0.2-1.0)
[2021-11-20 13:40] LABS: Urine Bacteria >50 /HPF (<20); Urine Microscopic Reflex ORDER UMIC; Urine RBC <5 /HPF (NONE SEEN)
--- NOTE | 2021-11-20 19:05 | P.DS ---
Admission Date: 11/19/21 Discharge Date: 11/20/21 Discharge Condition: FAIR Reason for Admission: SHOB/CHF - Problems (1) Reactive airway disease Current Visit: Yes Status: Acute (2) Shortness of breath Current Visit: Yes Status: Acute (3) Depression with anxiety Current Visit: Yes Status: Chronic (4) Morbid obesity Onset Date: 11/01/17 Current Visit: Yes Status: Chronic Brief History of Present Illness: Patient is a 61-year-old female with hypertension and anxiety who presented to the ED today with complaints of chest pain and shortness of breath for 5 weeks. Her work-up revealed a BNP of 145 and chest x-ray showed mild CHF. Troponin was negative x3. She was given Lasix and her shortness of breath improved. She was discharged however came back via EMS shortly after with the same complaints. She reports that shortness of breath is worse when she lays down. Same work-up was completed and was unchanged. Patient has not seen a sign carpenter before. Have consulted cardiology and ordered an echo. Patient's anxiety is likely contributing to the shortness of breath and chest pain. Will admit for observation. Hospital Course: Patient placed under observation on the medical floor. Her troponin was negative. CTA thorax done to rule out pulmonary embolism was negative, no infiltrate. EKG unremarkable. Patient seen by pulmonary-Dr. Link, and shortness of breath suspected to be related to obesity hypoventilation and possible sleep apnea. Patient reports history of allergic reactions and I also suspect reactive airway disease. Dr. Link also suspects diastolic heart failure. Patient seen by cardiology who recommended maintenance Lasix therapy and outpatient stress test. Echocardiogram was done and result is pending. Patient deemed stable for discharge. She will follow with cardiology for outpatient stress test and echocardiogram result. She also need to follow with pulmonary for PFT and evaluation for sleep apnea. Her UA suggested the presence of UTI. Patient is prescribed Cefpodoxime for the UTI. Vital Signs/Physical Exam: Temp Pulse Resp BP Pulse Ox 96.9 F 84 20 143/64 H 95 11/20/21 16:00 11/20/21 16:00 11/20/21 16:00 11/20/21 16:00 11/20/21 16:00 General: Alert, In no apparent distress, Oriented x3, Obese HEENT: Mucous membr. moist/pink, Sclerae nonicteric Neck: Supple, JVD not distended Respiratory: Clear to auscultation bilaterally, Normal air movement Cardiovascular: No edema, Regular rate/rhythm, Normal S1 S2, No murmurs Capillary refill: <2 Seconds Gastrointestinal: Normal bowel sounds, Soft and benign, Non-distended, No tenderness Musculoskeletal: No swelling, No tenderness Integumentary: No rashes, No cyanosis Neurological: Normal strength at 5/5 x4 extr Laboratory Data at Discharge: WBC 5.60 K/uL (4.3-10.9) D 11/20/21 05:20 Hgb 13.1 g/dL (12.0-15.0) 11/20/21 05:20 Hct 38.1 % (36.0-45.0) 11/20/21 05:20 Plt Count 276 K/uL (152-406) 11/20/21 05:20 PT 12.0 SECONDS (9.5-12.5) 11/19/21 02:00 INR 1.04 11/19/21 02:00 Sodium 136 mmol/L (136-145) 11/20/21 05:20 Potassium 3.6 mmol/L (3.5-5.1) 11/20/21 05:20 BUN 11 mg/dL (7-18) 11/20/21 05:20 Creatinine 0.69 mg/dL (0.55-1.3) 11/20/21 05:20 Glucose 106 mg/dL (74-106) 11/20/21 05:20 Magnesium 2.0 mg/dL (1.8-2.4) 11/19/21 02:00 Total Bilirubin 0.5 mg/dL (0.2-1.0) 11/20/21 05:20 AST 11 U/L (15-37) L 11/20/21 05:20 ALT 21 U/L (12-78) 11/20/21 05:20 Alkaline Phosphatase 79 U/L (45-117) 11/20/21 05:20 Triglycerides 137 mg/dL (<150) 11/19/21 04:22 Cholesterol 202 mg/dL (<200) H 11/19/21 04:22 HDL Cholesterol 56 mg/dL (40-60) 11/19/21 04:22 Cholesterol/HDL Ratio 3.61 11/19/21 04:22 Home Medications: Amlodipine [Norvasc*] 10 mg PO DAILY 11/19/21 Buspirone HCl [Buspar] 10 mg PO BID 11/19/21 Ergocalciferol (Vitamin D2) [Vitamin D2] 1 cap PO EVERY 7TH DAY 11/19/21 Hydralazine HCl 50 mg PO BID 11/19/21 Loratadine [Claritin*] 10 mg PO DAILY 11/19/21 Metoprolol Tartrate [Lopressor*] 50 mg PO BID 11/19/21 Mirtazapine 11/19/21 Pantoprazole [Protonix Tab*] 40 mg PO DAILY 11/19/21 hydrOXYzine HCL [Atarax] 50 mg PO DAILY 11/19/21 Albuterol Inhaler [Ventolin Inhaler] 2 puff IH Q6H PRN #1 hfa.aer.ad 11/20/21 Cefpodoxime Proxetil 100 mg PO BID #10 tablet 11/20/21 Furosemide [Lasix] 20 mg PO DAILY #30 tab 11/20/21 Spironolactone [Aldactone*] 25 mg PO DAILY #30 tab 11/20/21 New Medications: Spironolactone [Aldactone*] 25 mg PO DAILY #30 tab Cefpodoxime Proxetil 100 mg PO BID #10 tablet Furosemide [Lasix] 20 mg PO DAILY #30 tab Albuterol Inhaler [Ventolin Inhaler] 2 puff IH Q6H PRN #1 hfa.aer.ad PRN Reason: Shortness Of Breath Diet: [facility] Activity: Ad ginna Followup: Kishore Bateman MD [ACTIVE - CAN ADMIT] - 1 Week (Please call [phone] for arrangement for outpatient stress test. Also follow-up with Dr. Bateman regarding your echocardiogram result.) Unknown,U [Primary Care Provider] -
--- NOTE | 2021-11-20 20:53 | CON ---
Date of Consultation: 11/19/2021 Reason For Consultation: Shortness of breath. History Of Present Illness: A 61-year-old female with history of hypertension, anxiety disorder, and obesity, presented to the emergency room with generalized swelling and edema as well as shortness of breath as well as orthopnea. Feels better sleeping with the head elevated. No known history of car diac disease. Denies having any chest pain. Past Medical History: As outlined above in the HPI. Medications: Refer reconciliation sheet for detailed list. Allergies: NO KNOWN DRUG ALLERGIES. Family History: No premature coronary artery disease or cancer. Social History: She does not smoke or drink. Does not use any drugs. Review of Systems: All systems reviewed and they were negative except as mentioned in HPI. Physical Examination: Vital Signs: Reviewed. Head and Neck: Pupils are equal, reactive to light. Intact eye movements. No cervical lymphadenopa thy. Neck: Supple. Thyroid is not enlarged. Lungs: Decreased breathing sounds bilaterally with faint crackles in the bases. No accessory muscle use or muscle retraction. Heart: Regular rate and rhythm. No extra sounds. Abdomen: Soft and nontender. Bowel sounds positive. No organomegaly. No masses or hernia. No rig idity or rebound. Extremities: Edema bilaterally 2+. No clubbing or cyanosis. Intact pulses. Skin: No rash. No nodules. Neurologic: Alert, awake, and oriented x3. No acute focal deficits appreciated. Lymph Nodes: No cervical or axillary lymphadenopathy. Investigations: Labs were reviewed. Assessment And Recommendation: Shortness of breath. She has findings to suggest a congestive heart failure, seems like she has an orthopnea and significant lower extremity edema with shortness of delia th sign suggestive of heart failure. Recommend IV Lasix 40 mg q.12 hours. Monitor BUN, creatinine, electrolytes, and obtain an echocardiogram. Further recommendations accordingly. /MODL Voice ID: [id number] Report ID: [id number]
[2021-11-20 21:17] VITALS: O2SAT 100
[2021-11-20 21:26] VITALS: BP 128/60; TEMP 97.8
--- NOTE | 2021-11-21 06:52 | ECHO ---
HEIGHT: 5 ft 4 in WEIGHT: 253 lb 12.8 oz DATE OF STUDY: 11/20/[address]: Regine Soto 2-DIMENSIONAL: YES M.MODE: YES DOPPLER: YES COLOR FLOW: YES TDS: NO PORTABLE: NO DEFINITY: NO BUBBLE STUDY: NO DIAGNOSIS: CONGESTIVE HEART FAILURE CARDIAC HISTORY: CATHERIZATION: SURGERY: PROSTHETIC VALVE: PACEMAKER: MEASUREMENTS (cm) DIASTOLIC (NORMALS) SYSTOLIC (NORMALS) IVSd 1.1 (0.6-1.2) LA Diam 3.8 (1.9-4.0) LVEF 66% LVIDd 3.9 (3.5-5.7) LVIDs 2.5 (2.0-3.5) %FS 36% LVPWd 1.2 (0.6-1.2) Ao Diam 3.0 (2.0-3.7) 2 DIMENSIONAL ASSESSMENT: RIGHT ATRIUM: NORMAL LEFT ATRIUM: NORMAL RIGHT VENTRICLE: NORMAL LEFT VENTRICLE: NORMAL TRICUSPID VALVE: NORMAL MITRAL VALVE: NORMAL PULMONIC VALVE: NORMAL AORTIC VALVE: NORMAL PERICARDIAL EFFUSION: NONE AORTIC ROOT: NORMAL LEFT VENTRICULAR WALL MOTION: NORMAL. DOPPLER/COLOR FLOW: MILD TRICUSPID REGURGITATION. COMMENTS: NORMAL LEFT VENTRICULAR EJECTION FRACTION 60-65%. NORMAL WALL MOTION. MILD DIASTOLIC DYSFUNCTION. MILD TRICUSPID REGURGITITATION. RIGHT VENTRICULAR SYSTOLIC PRESSURE LESS THAN 35mmHg. TECHNOLOGIST: ANJELICA GIBBS
== END 2021-11-20 22:51 | disposition home or self-care (01) | DRG 205 ==
LOC: ER 01:33 → ERHOLD 03:14 → OBSVTOIN 03:14 → 2ND 03:23 → INTOOBSV 16:45 → OBSVTOIN 16:45
PROVIDERS: ADMIT Internal Medicine; ATTEND Internal Medicine
DX: E66.2 Morbid (severe) obesity with alveolar hypoventilation (principal); I50.31 Acute diastolic (congestive) heart failure; Z68.41 Body mass index [BMI] 40.0-44.9, adult; N39.0 Urinary tract infection, site not specified; I11.0 Hypertensive heart disease with heart failure; F41.8 Other specified anxiety disorders; J45.909 Unspecified asthma, uncomplicated; Z88.5 Allergy status to narcotic agent; Z88.8 Allergy status to other drugs, medicaments and biological substances; Z79.899 Other long term (current) drug therapy; Z88.6 Allergy status to analgesic agent; Z79.01 Long term (current) use of anticoagulants; Z79.52 Long term (current) use of systemic steroids
CPT/HCPCS: 36415; 71045; 71275; 80048; 80053; 80061; 80076; 81003; 81015; 83735; 83880; 84439; 84443; 84484; 85025; 85610; 93005; 93306; 94640; 94760; 99284; G0378; J1650; Q9967

== ENCOUNTER 2021-12-01 00:55 | Emergency (ER) | payer OTHER ==
--- OUTSIDE RECORDS SUMMARY | 2021-12-01 01:04 | XMS REPORT | Continuity of Care Document ---
:1960 Author Organization [facility] t Address [address] [place] [address] [address]. [address] [place] [address] Care Team Providers Name Role Phone VINNY Mclaughlin [facility] Primary Care Physic kayla Unavailable Lisa HERZOG Attending Clinician Unavailable Rosenda SHIPPING COORDINATOR, J Attending Clinician Mamta ROMAN, B Attending Clinician Akinsipe WHCNP, C Attending Clinician AKINSIPE, C Attending Clinician Unavailable Sean BERRY PICKER, G Attending Clinician Doctor Unassigned, Name Attending Clinician Unavailable Garcia HIRSCH Attending Clinician Unavailable Mayela GRECO, S Attending Clinician Visit, Nurse Attending Clinician Unavailable Ananda NARAYAN, R Attending Clinician Johnathan COLUNGA Attending Clinician Unavailable Lisa HERZOG Admitting Clinician Unavailable JOANA Admitting Clinician Unavailable Payers Payer Name Policy Type Policy Number Effective Date Expiration Date [facility] MEDICARE PART A [id number] 2020 \\T\\ B 00:00:00 Advance Directives Directive Decision Effective Termination Comments Source Date Date Healthcare Agents on N/A [facility] Agent Medical RelationshipCommunicationNorthwest [facility] Care [phone] (Mobile) Problems Condition Condition Condition Status Onset Resolution Last Treating Co mments Source Name Details Category Date Date Treatment Clinician Date Anal wart Anal wart Disease Active 2019-09 Uni vers 2-04 ity of 00:00: [place] [facility] Vaginal Vaginal Disease Active [facility] yeast yeast 8-21 [place] infection [place] [facility] [place] Vaginal Vaginal Disease Active Univers itching itching 8-21 ity of 00:00: Medical [facility] Urinary Urinary Disease Active Univers urgency urgency 8- ity of 00:00: Medical [facility] Screen for Screen for Disease Active U nivers STD STD 4-24 [place] of ([place]ually ([place] transmit[place] transmitte 00 Me dical d disease) d disease) Br anch Vaginal Vaginal Disease Active Univers discomfort discomfort 4-24 it y of 00:00: Medical [facility] Contracept Contracept Disease Active U nivers roz roz 3-14 it[place] of management management 00:[place] [facility] Well woman Well woman Disease Active U nivers exam exam 3-14 ity of 00:00: [place] [facility] Contracept Contracept Disease Active U nivers roz roz 3-14 ity of management management 00:00: [place] [facility] Menopause Menopause Disease Active Uni vers 6-25 ity of 00:00: Medical [facility] Morbid Morbid Disease Active Univers obesity obesity 6-25 ity of 00:00: [place] [facility] Essential Essential Disease Active Uni vers hypertensi hypertensi 6-25 it y of on, benign on, benign 00:00: [place] [facility] Generalize Generalize Disease Active U nivers d anxiety d anxiety 6-25 ity of disorder disorder 00:00: [place] [facility] Depression Depression Disease Active U nivers 6-25 ity of 00:00: [place] [facility] Allergies, Adverse Reactions, Alerts Allergy Allergy Status Severity Reaction(s) Onset Inactive Treating Comm ents Source Name Type Date Date Clinician Hydrochl Propensi Active Unknown - Severe Uni vers orothiaz ty to See comments -04 hyponatre ity of isabel adverse 00:00: el [place] reaction 00 Medical s Branch HYDROCHL DRUG Active Unknown-Cmnt Un rohit OROTHIAZ INGREDI 4-04 ity of ISABEL 00:00: [place] 00 Medical Branch Aspirin- Propensi Active Swelling Univ ers Acetamin ty to 04-28 ity of ophen-Ca adverse 00:00: [place] ffeine reaction 00 Medical s Branch Ibuprofe Propensi Active Swelling Univ ers n ty to 04-28 ity of adverse 00:00: [place] reaction Medical s Branch ASPIRIN- DRUG Active Swelling Univer s ACETAMIN 04-28 ity of OPHEN-CA 00:00: [place] FFEINE 00 Medical Branch IBUPROFE DRUG Active Swelling Univer s N INGREDI 04-28 ity of 00:00: [place] 00 Medical Branch Social History Social Habit Start Date Stop Date Quantity Comments Source Exposure to Not sure [facility] SARS-CoV-2 [place] [facility] (event) Branch History SDOH University o f Alcohol Frequency [facility] History SDOH University o f Alcohol Std [place] [facility] Drinks Branch History SDOH University o f Alcohol Binge [facility] al [place] Tobacco use and 2020-09-07 2020-09-07 Never used Universit y of exposure 00:00:00 00:00:00 [facility] Alcohol intake 2020-09-07 2020-09-07 Current drinker of Un iversity of 00:00:00 00:00:00 alcohol (finding) [facility] Alcohol Comment 2015-03-14 2015-03-14 occasionally Univers ity of 00:00:00 00:00:00 [facility] Sex Ass[birth year] At [birth year] Universit y of 00:00:00 00:00:00 [facility] Smoking Status Start Date Stop Date Source Never smoker [facility] Medications Ordered Filled Start Stop Current Ordering Indication Dosage Frequency Signature Comments Components Source Medication Medication Date Date Medication? Clinician (SIG) Name Name iopamidol 2020- No [id number] 120mL 120 mL, Univers (ISOVUE 05-15 Intravenou ity o f 300-500 mL) 07:05: 07:05 s, ONCE, 1 [place] injection 00 :00 dose, Mon Medic al 120 mL 05/15/21 at Branch 0215, Routine cloNIDine 2020- No .1mg 0.1 mg, Univ ers (CATAPRES) 05-15 Oral, ity of tablet 0.1 05:30: 05:46 ONCE, 1 [place] mg 00 :00 dose, [facility] 05/15/21 at Branch 0030, STAT morpHINE 2020-0 2020- No 4mg 4 mg, Slow Un rohit injection 4 05-15 IV Push, ity of mg 03:45: 03:17 ONCE, 1 [place] 00 :00 dose, [facility] 05/14/21 at Branch 2245, STAT hydrALAZINE 2019-09- No 50mg 50 mg, Uni vers (APRESOLINE 11-09 Oral, ity of ) tablet 50 00:00: 22:56 ONCE, 1 [place] mg 00 :[place] dose, Sat [facility] 09/07/20 Branch at 1800, Routine LORazepam 2019-09- No 1mg 1 mg, Univer s (ATIVAN) 11-09 Oral, ity of tablet 1 mg 00:00: 22:56 ONCE, 1 [place] :[place] dose, Sat [facility] 09/07/20 Branch at 1800, LIN cloNIDine 2019-09- No .1mg 0.1 mg, Univ ers (CATAPRES) 10-28 Oral, ity of tablet 0.1 01:45: 01:08 ONCE, 1 [place] mg 00 :00 dose, Sat [facility] 08/26/20 at Branch 1945, STAT PAROXETINE 2019-09 Yes [...] ity of mg tablet 22:23: every 6 [place] 39 (six) Medical hours. Branch hydralAZINE 2019-09 Yes 50mg Take 50 mg Univers 50 mg 2-04 by mouth 2 ity of tablet 22:23: (two) [place] 39 times Medical daily. Branch mirtazapine 2019-09 Yes 30mg Take 30 mg Univers 30 mg 2-04 by mouth ity of tablet 22:23: at [place] 39 bedtime. Medical Branch busPIRone 2019-09 Yes [...] by mouth ity of tablet 22:23: at [place] 39 bedtime. Medical Branch busPIRone 2019-09 Yes [...] by mouth ity of tablet 22:23: at [place] 39 bedtime. Medical Branch busPIRone 2019- Yes [...] ity of mg tablet 22:23: every 6 [place] 39 (six) Medical hours. Branch hydralAZINE 2019-09 Yes 50mg Take 50 mg Univers 50 mg 2-04 by mouth 2 ity of tablet 22:23: (two) [place] 39 times Medical daily. Branch mirtazapine 2019-09 Yes 30mg Take 30 mg Univers 30 mg 2-04 by mouth ity of tablet 22:23: at [place] [address] bedtime. Medical Branch busPIRone 2019- Yes 10mg [...] ity of mg tablet 22:23: every 6 [place] 39 (six) Medical hours. Branch hydralAZINE 2019- Yes 50mg Take 50 mg Univers 50 mg 2-04 by mouth 2 ity of tablet 22:23: (two) [place] 39 times Medical daily. Branch mirtazapine 2019-09 Yes 30mg Take 30 mg Univers 30 mg 2-04 by mouth ity of tablet 22:23: at [place] 39 bedtime. Medical Branch busPIRone 2019- Yes [...] ity of mg tablet 22:23: every 6 [place] 39 (six) Medical hours. Branch hydralAZINE 2019- Yes 50mg Take 50 mg Univers 50 mg 2-04 by mouth 2 ity of tablet 22:23: (two) [place] 39 times Medical daily. Branch mirtazapine 2019-09 Yes 30mg Take 30 mg Univers 30 mg 2-04 by mouth ity of tablet 22:23: at [place] [address] bedtime. Medical Branch busPIRone 2019- Yes 10mg Take 10 mg Un rohit 10 mg 2-04 by mouth 2 ity of tablet 22:23: (two) [place] 39 times Medical daily. Branch PAROXETINE 2019- [...] ity of mg tablet 22:23: every 6 [place] 39 (six) Medical hours. Branch hydralAZINE 2019-09 Yes 50mg Take 50 mg Univers 50 mg 2-04 by mouth 2 ity of tablet 22:23: (two) [place] 39 times Medical daily. Branch mirtazapine 2019-09 Yes 30mg Take 30 mg Univers 30 mg 2-04 by mouth ity of tablet 22:23: at [place] [address] bedtime. Medical Branch busPIRone 2019- Yes 10mg [...] ity of mg tablet 22:23: every 6 [place] 39 (six) Medical hours. Branch hydralAZINE 2019- Yes 50mg Take 50 mg Univers 50 mg 2-04 by mouth 2 ity of tablet 22:23: (two) [place] 39 times Medical daily. Branch mirtazapine 2019-09 Yes 30mg Take 30 mg Univers 30 mg 2-04 by mouth ity of tablet 22:23: at [place] 39 bedtime. Medical Branch busPIRone 2019- Yes [...] ity of mg tablet 22:23: every 6 [place] 39 (six) Medical hours. Branch hydralAZINE 2019-09 Yes 50mg Take 50 mg Univers 50 mg 2-04 by mouth 2 ity of tablet 22:23: (two) [place] 39 times Medical daily. Branch mirtazapine 2019-09 Yes 30mg Take 30 mg Univers 30 mg 2-04 by mouth ity of tablet 22:23: at [place] [address] bedtime. Medical Branch busPIRone 2019- Yes 10mg [...] ity of mg tablet 22:23: every 6 [place] 39 (six) Medical hours. Branch hydralAZINE 2019- Yes 50mg Take 50 mg Univers 50 mg 2-04 by mouth 2 ity of tablet 22:23: (two) [place] 39 times Medical daily. Branch mirtazapine 2019- Yes 30mg Take 30 mg Univers 30 mg 2-04 by mouth ity of tablet 22:23: at [place] [address] bedtime. Medical Branch busPIRone 2020- Yes 10mg Take 10 mg Un rohit 10 mg 2-04 by mouth 2 ity of tablet 22:23: (two) [place] 39 times Medical daily. Branch PAROXETINE 2020- Yes 1 daily Univ ers HCL 20 MG 2-04 ity of ORAL TAB 16:23: [place] 39 Medical Branch metoprolol 2019- Yes 50mg Take 50 mg U nivers tartrate 2-04 by mouth 2 ity o f (LOPRESSOR) 16:23: (two) [place] 50 mg 39 times Medical tablet daily. Branch hydrOXYzine 2019- Yes 25mg Take 25 mg Univers (ATARAX) 25 2-04 by mouth ity of mg tablet 16:23: every 6 [place] 39 (six) Medical hours. Branch hydralAZINE 2019- Yes 50mg Take 50 mg Univers 50 mg 2-04 by mouth 2 ity of tablet 16:23: (two) [place] 39 times Medical daily. Branch mirtazapine 2019-09 Yes 30mg Take 30 mg Univers 30 mg 2-04 by mouth ity of tablet 16:23: at [place] [address] bedtime. Medical Branch busPIRone 2019- Yes 10mg Take 10 mg Un rohit 10 mg 2-04 by mouth 2 ity of tablet 16:23: (two) [place] 39 times Medical daily. Branch clotrimazol 2019- Yes [id number] 1{appli Insert 1 Univers e 1 % 2-04 cator} Applicator ity of vaginal 00:00: into [place] cream 00 vagina at Medical bedtime. Branch clotrimazol 2019- Yes [id number] 1{appli Insert 1 Univers e 1 % 2-04 cator} Applicator ity of vaginal 00:00: into [place] cream 00 vagina at Medical bedtime. Branch clotrimazol 2019- Yes [id number] 1{appli Insert 1 Univers e 1 % 2-04 cator} Applicator ity of vaginal 00:00: into [place] cream 00 vagina at Medical bedtime. [place] clotrimazol 2019-09 Yes [id number] 1{appli Insert 1 Univers e 1 % 2-04 cator} Applicator ity of vaginal 00:00: into [place] cream 00 vagina at Medical bedtime. [place] clotrimazol 2019-09 Yes [id number] 1{appli Insert 1 Univers e 1 % 2-04 cator} Applicator ity of vaginal 00:00: into [place] cream 00 vagina at Medical bedtime. [place] clotrimazol 2019-09 Yes [id number] 1{appli Insert 1 Univers e 1 % 2-04 cator} Applicator ity of vaginal 00:00: into [place] cream 00 vagina at Medical bedtime. [place] clotrimazol 2019-09 Yes [id number] 1{appli Insert 1 Univers e 1 % 2-04 cator} Applicator ity of vaginal 00:00: into [place] cream 00 vagina at Medical bedtime. [place] clotrimazol 2019-09 Yes [id number] 1{appli Insert 1 Univers e 1 % 2-04 cator} Applicator ity of vaginal 00:00: into [place] cream 00 vagina at Medical bedtime. [place] clotrimazol 2019-09 Yes [id number] 1{appli Insert 1 Univers e 1 % 2-04 cator} Applicator ity of vaginal 00:00: into [place] cream 00 vagina at Medical bedtime. [place] clotrimazol 2019-09 Yes [id number] 1{appli Insert 1 Univers e 1 % 2-04 cator} Applicator ity of vaginal 00:00: into [place] cream 00 vagina at Medical bedtime. [place] clotrimazol 2019-09 Yes [id number] 1{appli Insert 1 Univers e 1 % 2-04 cator} Applicator ity of vaginal 00:00: into [place] cream 00 vagina at Medical bedtime. [place] clotrimazol 2019-09 Yes [id number] 1{appli Insert 1 Univers e 1 % 2-04 cator} Applicator ity of vaginal 00:00: into [place] cream 00 vagina at Medical bedtime. [place] clotrimazol 2019-09 Yes [id number] 1{appli Insert 1 Univers e 1 % 2-04 cator} Applicator ity of vaginal 00:00: into [place] cream 00 vagina at Medical bedtime. Branch clotrimazol 2020-1 Yes [id number] 1{appli Insert 1 Univers e 1 % 2-04 cator} Applicator ity of vaginal 00:00: into [place] cream 00 vagina at Medical bedtime. Branch clotrimazol 2019-1 Yes [id number] 1{appli Insert 1 Univers e 1 % 2-04 cator} Applicator ity of vaginal 00:00: into [place] cream 00 vagina at Medical bedtime. Branch clotrimazol 2019- Yes [id number] 1{appli Insert 1 Univers e 1 % 2-04 cator} Applicator ity of vaginal 00:00: into [place] cream 00 vagina at Medical bedtime. Branch Miscellaneo 2019-0 Yes [id number] QHS X U nivers Medical 8-21 7days ity of Supply Misc 00:00: [place] 00 Medical Branch Miscellaneo 2019-0 Yes [id number] QHS X U nivers [facility] 8-21 7days ity of Supply Misc 00:00: [place] 00 Medical Branch Miscellaneo 2019-0 Yes [id number] QHS X U nivers Medical 8-21 7days ity of Supply Misc 00:00: [place] 00 Medical Branch Miscellaneo 2019-0 Yes [id number] QHS X U nivers Medical 8-21 7days ity of Supply Misc 00:00: [place] 00 Medical Branch Miscellaneo 2019-0 Yes [id number] QHS X U nivers Medical 8-21 7days ity of Supply Misc 00:00: [place] 00 Medical Branch Miscellaneo 2019-0 Yes [id number] QHS X U nivers Medical 8-21 7days ity of Supply Misc 00:00: [place] 00 Medical Branch Miscellaneo 2019-0 Yes [id number] QHS X U nivers Medical 8-21 7days ity of Supply Misc 00:00: [place] 00 Medical Branch Miscellaneo 2019-0 Yes [id number] QHS X U nivers Medical 8-21 7days ity of Supply Misc 00:00: [place] 00 Medical Branch Miscellaneo 2019-0 Yes [id number] QHS X U nivers [facility] 8-21 7days ity of Supply Misc 00:00: [place] 00 Medical Branch Miscellaneo 2019-0 Yes [id number] QHS X U nivers [facility] 8-21 7days ity of Supply Misc 00:00: [place] 00 Medical Branch Miscellaneo 2019-0 Yes [id number] QHS X U nivers us Medical 8-21 7days ity of Supply Misc 00:00: [place] 00 Medical Branch Miscellaneo 2019-0 Yes [id number] QHS X U nivers us Medical 8-21 7days ity of Supply Misc 00:00: [place] 00 Medical Branch Miscellaneo 2019-0 Yes [id number] QHS X U nivers us Medical 8-21 7days ity of Supply Misc 00:00: [place] 00 Medical Branch Miscellaneo 2019-0 Yes [id number] QHS X U nivers us Medical 8-21 7days ity of Supply Misc 00:00: [place] 00 Medical Branch Miscellaneo 2019-0 Yes [id number] QHS X U nivers us Medical 8-21 7days ity of Supply Misc 00:00: [place] 00 Medical Branch Miscellaneo 2019-0 Yes [id number] QHS X U nivers us Medical 8-21 7days ity of Supply Misc 00:00: [place] 00 Medical Branch Miscellaneo 2019-0 Yes [id number] QHS X U nivers us Medical 8-21 7days ity of Supply Misc 00:00: [place] 00 Medical Branch Miscellaneo 2019-0 Yes [id number] QHS X U nivers us Medical 8-21 7days ity of Supply Misc 00:00: [place] 00 Medical Branch Miscellaneo 2019-0 Yes [id number] QHS X U nivers us Medical 8-21 7days ity of Supply Misc 00:00: [place] 00 Medical Branch Miscellaneo 2019-0 Yes [id number] QHS X U nivers us Medical 8-21 7days ity of Supply Misc 00:00: [place] 00 Medical Branch Miscellaneo 2019-0 Yes [id number] QHS X U nivers us Medical 8-21 7days ity of Supply Misc 00:00: [place] 00 Medical Branch Miscellaneo 2019-0 Yes [id number] QHS X U nivers us Medical 8-21 7days ity of Supply Misc 00:00: [place] 00 Medical Branch Miscellaneo 2019-0 Yes [id number] QHS X U nivers us Medical 8-21 7days ity of Supply Misc 00:00: [place] 00 Medical Branch Miscellaneo 2019-0 Yes [id number] QHS X U nivers us Medical 8-21 7days ity of Supply Misc 00:00: [place] 00 Medical Branch busPIRone 2018- Yes 10mg Take 10 mg Un rohit 10 mg 3-14 by mouth 2 ity of tablet 21:09: (two) [place] 48 times Medical daily. Branch busPIRone Yes 10mg Take 10 mg Un rohit 10 mg 3-14 by mouth 2 ity of tablet 21:09: (two) [place] 48 times Medical daily. Branch busPIRone Yes 10mg Take 10 mg Un rohit 10 mg 3-14 by mouth 2 ity of tablet 21:09: (two) [place] 48 times Medical daily. Branch busPIRone Yes 10mg Take 10 mg Un rohit 10 mg 3-14 by mouth 2 ity of tablet 21:09: (two) [place] 48 times Medical daily. Branch busPIRone Yes 10mg Take 10 mg Un rohit 10 mg 3-14 by mouth 2 ity of tablet 21:09: (two) [place] 48 times Medical daily. Branch busPIRone Yes 10mg Take 10 mg Un rohit 10 mg 3-14 by mouth 2 ity of tablet 21:09: (two) [place] 48 times Medical daily. Branch busPIRone Yes 10mg Take 10 mg Un rohit 10 mg 3-14 by mouth 2 ity of tablet 21:09: (two) [place] 48 times Medical daily. Branch busPIRone Yes 10mg Take 10 mg Un rohit 10 mg 3-14 by mouth 2 ity of tablet 21:09: (two) [place] 48 times Medical daily. Branch PAROXETINE Yes 1 daily Univ ers HCL 20 MG 3-14 ity of ORAL TAB 21:09: [place] 31 Medical Branch metoprolol 0 Yes 50mg Take 50 mg U nivers tartrate 3-14 by mouth 2 ity o f (LOPRESSOR) 21:09: (two) [place] 50 mg 31 times Medical tablet daily. Branch hydrOXYzine 2019-0 Yes 25mg Take 25 mg Univers (ATARAX) 25 3-14 by mouth ity of mg tablet 21:09: every 6 [place] [address] (six) Medical hours. Branch hydralAZINE 2019-0 Yes 50mg Take 50 mg Univers 50 mg 3-14 by mouth 2 ity of tablet 21:09: (two) [place] 31 times Medical daily. Branch mirtazapine 2019-0 Yes 30mg Take 30 mg Univers 30 mg 3-14 by mouth ity of tablet 21:09: at [place] [address] bedtime. Medical Branch PAROXETINE 2019-0 Yes 1 daily Univ ers HCL 20 MG 3-14 ity of ORAL TAB 21:09: [place] [address] Medical Branch metoprolol 2019-0 Yes 50mg Take 50 mg U nivers tartrate 3-14 by mouth 2 ity o f (LOPRESSOR) 21:09: (two) [place] 50 mg 31 times Medical tablet daily. Branch hydrOXYzine 2019-0 Yes 25mg Take 25 mg Univers (ATARAX) 25 3-14 by mouth ity of mg tablet 21:09: every 6 [place] [address] (six) Medical hours. Branch hydralAZINE 2019-0 Yes 50mg Take 50 mg Univers 50 mg 3-14 by mouth 2 ity of tablet 21:09: (two) [place] 31 times Medical daily. Branch mirtazapine 2019-0 Yes 30mg Take 30 mg Univers 30 mg 3-14 by mouth ity of tablet 21:09: at [place] [address] bedtime. Medical Branch PAROXETINE 2019-0 Yes 1 daily Univ ers HCL 20 MG 3-14 ity of ORAL TAB 21:09: [place] [address] Medical Branch metoprolol 2019-0 Yes 50mg Take 50 mg U nivers tartrate 3-14 by mouth 2 ity o f (LOPRESSOR) 21:09: (two) [place] 50 mg 31 times Medical tablet daily. Branch hydrOXYzine 2019-0 Yes 25mg Take 25 mg Univers (ATARAX) 25 3-14 by mouth ity of mg tablet 21:09: every 6 [place] [address] (six) Medical hours. Branch hydralAZINE 2019-0 Yes 50mg Take 50 mg Univers 50 mg 3-14 by mouth 2 ity of tablet 21:09: (two) [place] 31 times Medical daily. Branch mirtazapine 2019-0 Yes 30mg Take 30 mg Univers 30 mg 3-14 by mouth ity of tablet 21:09: at [place] [address] bedtime. Medical Branch PAROXETINE 2019-0 Yes 1 daily Univ ers HCL 20 MG 3-14 ity of ORAL TAB 21:09: [place] [address] Medical Branch metoprolol 2019-0 Yes 50mg Take 50 mg U nivers tartrate 3-14 by mouth 2 ity o f (LOPRESSOR) 21:09: (two) [place] 50 mg 31 times Medical tablet daily. Branch hydrOXYzine 2018-0 Yes 25mg Take 25 mg Univers (ATARAX) 25 3-14 by mouth ity of mg tablet 21:09: every 6 [place] [address] (six) Medical hours. Branch hydralAZINE 2018-0 Yes 50mg Take 50 mg Univers 50 mg 3-14 by mouth 2 ity of tablet 21:09: (two) [place] 31 times Medical daily. Branch mirtazapine 0 Yes 30mg Take 30 mg Univers 30 mg 3-14 by mouth ity of tablet 21:09: at [place] [address] bedtime. Medical Branch PAROXETINE 2018-0 Yes 1 daily Univ ers HCL 20 MG 3-14 ity of ORAL TAB 21:09: [place] [address] Medical Branch metoprolol 0 Yes 50mg Take 50 mg U nivers tartrate 3-14 by mouth 2 ity o f (LOPRESSOR) 21:09: (two) [place] 50 mg 31 times Medical tablet daily. Branch hydrOXYzine 0 Yes 25mg Take 25 mg Univers (ATARAX) 25 3-14 by mouth ity of mg tablet 21:09: every 6 [place] [address] (six) Medical hours. Branch hydralAZINE 2018-0 Yes 50mg Take 50 mg Univers 50 mg 3-14 by mouth 2 ity of tablet 21:09: (two) [place] 31 times Medical daily. Branch mirtazapine 2019-0 Yes 30mg Take 30 mg Univers 30 mg 3-14 by mouth ity of tablet 21:09: at [place] [address] bedtime. Medical Branch PAROXETINE 2019-0 Yes 1 daily Univ ers HCL 20 MG 3-14 ity of ORAL TAB 21:09: [place] [address] Medical Branch metoprolol 2019-0 Yes 50mg Take 50 mg U nivers tartrate 3-14 by mouth 2 ity o f (LOPRESSOR) 21:09: (two) [place] 50 mg 31 times Medical tablet daily. Branch hydrOXYzine 2018-0 Yes 25mg Take 25 mg Univers (ATARAX) 25 3-14 by mouth ity of mg tablet 21:09: every 6 [place] 31 (six) Medical hours. Branch hydralAZINE 2019-0 Yes 50mg Take 50 mg Univers 50 mg 3-14 by mouth 2 ity of tablet 21:09: (two) [place] 31 times Medical daily. Branch mirtazapine 2019-0 Yes 30mg Take 30 mg Univers 30 mg 3-14 by mouth ity of tablet 21:09: at [place] [address] bedtime. Medical Branch PAROXETINE 2019-0 Yes 1 daily Univ ers HCL 20 MG 3-14 ity of ORAL TAB 21:09: [place] [address] Medical Branch metoprolol 2019-0 Yes 50mg Take 50 mg U nivers tartrate 3-14 by mouth 2 ity o f (LOPRESSOR) 21:09: (two) [place] 50 mg 31 times Medical tablet daily. Branch hydrOXYzine 2019-0 Yes 25mg Take 25 mg Univers (ATARAX) 25 3-14 by mouth ity of mg tablet 21:09: every 6 [place] [address] (six) Medical hours. Branch hydralAZINE 2019-0 Yes 50mg Take 50 mg Univers 50 mg 3-14 by mouth 2 ity of tablet 21:09: (two) [place] 31 times Medical daily. Branch mirtazapine 2019-0 Yes 30mg Take 30 mg Univers 30 mg 3-14 by mouth ity of tablet 21:09: at [place] [address] bedtime. Medical Branch PAROXETINE 2019-0 Yes 1 daily Univ ers HCL 20 MG 3-14 ity of ORAL TAB 21:09: [place] [address] Medical Branch metoprolol 2019-0 Yes 50mg Take 50 mg U nivers tartrate 3-14 by mouth 2 ity o f (LOPRESSOR) 21:09: (two) [place] 50 mg 31 times Medical tablet daily. Branch hydrOXYzine 2019-0 Yes 25mg Take 25 mg Univers (ATARAX) 25 3-14 by mouth ity of mg tablet 21:09: every 6 [place] 31 (six) Medical hours. Branch hydralAZINE 2019-0 Yes 50mg Take 50 mg Univers 50 mg 3-14 by mouth 2 ity of tablet 21:09: (two) [place] 31 times Medical daily. Branch mirtazapine 2019-0 Yes 30mg Take 30 mg Univers 30 mg 3-14 by mouth ity of tablet 21:09: at [place] 31 bedtime. Medical Branch cloniDINE 2018-0 Yes .1mg Take 1 Univer s 0.1 mg 2-22 tablet by ity of tablet 00:00: mouth at [place] 00 bedtime as Medical needed Branch (SBP>180 or DBP>120). cloniDINE 2018-0 Yes .1mg Take 1 Univer s 0.1 mg 2-22 tablet by ity of tablet 00:00: mouth at [place] 00 bedtime as Medical needed Branch (SBP>180 or DBP>120). cloniDINE 2018-0 Yes .1mg Take 1 Univer s 0.1 mg 2-22 tablet by ity of tablet 00:00: mouth at [place] 00 bedtime as Medical needed Branch (SBP>180 or DBP>120). cloniDINE 2018-0 Yes .1mg Take 1 Univer s 0.1 mg 2-22 tablet by ity of tablet 00:00: mouth at [place] 00 bedtime as Medical needed Branch (SBP>180 or DBP>120). cloniDINE 2018-0 Yes .1mg Take 1 Univer s 0.1 mg 2-22 tablet by ity of tablet 00:00: mouth at [place] 00 bedtime as Medical needed Branch (SBP>180 or DBP>120). cloniDINE 2018-0 Yes .1mg Take 1 Univer s 0.1 mg 2-22 tablet by ity of tablet 00:00: mouth at [place] 00 bedtime as Medical needed Branch (SBP>180 or DBP>120). cloniDINE 2018-0 Yes .1mg Take 1 Univer s 0.1 mg 2-22 tablet by ity of tablet 00:00: mouth at [place] 00 bedtime as Medical needed Branch (SBP>180 or DBP>120). cloniDINE 2018-0 Yes .1mg Take 1 Univer s 0.1 mg 2-22 tablet by ity of tablet 00:00: mouth at [place] 00 bedtime as Medical needed Branch (SBP>180 or DBP>120). cloniDINE 2018-0 Yes .1mg Take 1 Univer s 0.1 mg 2-22 tablet by ity of tablet 00:00: mouth at [place] 00 bedtime as Medical needed Branch (SBP>180 or DBP>120). cloniDINE 2018-0 Yes .1mg Take 1 Univer s 0.1 mg 2-22 tablet by ity of tablet 00:00: mouth at [place] 00 bedtime as Medical needed Branch (SBP>180 or DBP>120). cloniDINE 2018-0 Yes .1mg Take 1 Univer s 0.1 mg 2-22 tablet by ity of tablet 00:00: mouth at [place] 00 bedtime as Medical needed Branch (SBP>180 or DBP>120). cloniDINE 2018-0 Yes .1mg Take 1 Univer s 0.1 mg 2-22 tablet by ity of tablet 00:00: mouth at [place] 00 bedtime as Medical needed Branch (SBP>180 or DBP>120). cloniDINE 2018-0 Yes .1mg Take 1 Univer s 0.1 mg 2-22 tablet by ity of tablet 00:00: mouth at [place] 00 bedtime as Medical needed Branch (SBP>180 or DBP>120). cloniDINE 2018-0 Yes .1mg Take 1 Univer s 0.1 mg 2-22 tablet by ity of tablet 00:00: mouth at [place] 00 bedtime as Medical needed Branch (SBP>180 or DBP>120). cloniDINE 2018-0 Yes .1mg Take 1 Univer s 0.1 mg 2-22 tablet by ity of tablet 00:00: mouth at [place] 00 bedtime as Medical needed Branch (SBP>180 or DBP>120). cloniDINE 2018-0 Yes .1mg Take 1 Univer s 0.1 mg 2-22 tablet by ity of tablet 00:00: mouth at [place] 00 bedtime as Medical needed Branch (SBP>180 or DBP>120). cloniDINE 2018-0 Yes .1mg Take 1 Univer s 0.1 mg 2-22 tablet by ity of tablet 00:00: mouth at [place] 00 bedtime as Medical needed Branch (SBP>180 or DBP>120). cloniDINE 2018-0 Yes .1mg Take 1 Univer s 0.1 mg 2-22 tablet by ity of tablet 00:00: mouth at [place] 00 bedtime as Medical needed Branch (SBP>180 or DBP>120). cloniDINE 2018-0 Yes .1mg Take 1 Univer s 0.1 mg 2-22 tablet by ity of tablet 00:00: mouth at [place] 00 bedtime as Medical needed Branch (SBP>180 or DBP>120). cloniDINE 2018-0 Yes .1mg Take 1 Univer s 0.1 mg 2-22 tablet by ity of tablet 00:00: mouth at [place] 00 bedtime as Medical needed Branch (SBP>180 or DBP>120). cloniDINE 2018-0 Yes .1mg Take 1 Univer s 0.1 mg 2-22 tablet by ity of tablet 00:00: mouth at [place] 00 bedtime as Medical needed Branch (SBP>180 or DBP>120). cloniDINE 2018-0 Yes .1mg Take 1 Univer s 0.1 mg 2-22 tablet by ity of tablet 00:00: mouth at [place] 00 bedtime as Medical needed Branch (SBP>180 or DBP>120). cloniDINE 2018-0 Yes .1mg Take 1 Univer s 0.1 mg 2-22 tablet by ity of tablet 00:00: mouth at [place] 00 bedtime as Medical needed Branch (SBP>180 or DBP>120). cloniDINE 2018-0 Yes .1mg Take 1 Univer s 0.1 mg 2-22 tablet by ity of tablet 00:00: mouth at [place] 00 bedtime as Medical needed Branch (SBP>180 or DBP>120). cloniDINE 2018-0 Yes .1mg Take 1 Univer s 0.1 mg 2-22 tablet by ity of tablet 00:00: mouth at [place] 00 bedtime as Medical needed Branch (SBP>180 or DBP>120). Immunizations Ordered Filled Immunization Date Status Comments [facility] e Immunization Name Name Influenza Virus 2020-08-26 Completed Universit y of Vaccine [place] .5 mL 00:00:00 [place] [facility] IM 6+ MO Branch Influenza Virus 2020-08-26 Completed Universit y of [facility] [place] .5 mL 00:00:00 [place] [facility] IM 6+ MO Branch Influenza Virus 2020-08-26 Completed Universit y of [facility] [place] .5 mL 00:00:00 [place] [facility] IM 6+ MO Branch Influenza Virus 2020-08-26 Completed Universit y of [place] .5 mL 00:00:00 [place] [facility] IM 6+ MO Branch Influenza Virus 2020-08-26 Completed Universit y of [facility] [place] .5 mL 00:00:00 [place] [facility] IM 6+ MO Branch Influenza Virus 2020-08-26 Completed Universit y of [place] .5 mL 00:00:00 [place] [facility] IM 6+ MO Branch Influenza Virus 2020-08-26 Completed Universit y of [facility] .5 mL 00:00:00 [place] [facility] IM 6+ MO Branch Influenza Virus 2020-08-26 Completed Universit y of [facility] [place] .5 mL 00:00:00 [place] [facility] IM 6+ MO Branch Influenza Virus [...] y of Vaccine [place] .5 mL 00:00:00 [place] [facility] IM 6+ MO Branch Influenza Virus 2020-08-26 Completed Universit y of [facility] .5 mL 00:00:00 [place] [facility] IM 6+ MO Branch Influenza Virus 2020-08-26 Completed Universit y of [place] .5 mL 00:00:00 [place] [facility] IM 6+ MO Branch Influenza Virus 2020-08-26 Completed Universit y of [place] .5 mL 00:00:00 [facility] IM 6+ MO Branch Vital Signs Vital Name Observation Time Observation Value Comments Source Systolic blood 2021-11-25 01:45:00 151 mm[Hg] Univer sity of pressure [facility] Diastolic blood 2021-11-25 01:45:00 78 mm[Hg] Unive rsity of pressure [facility] Heart rate 2021-11-25 01:45:00 88 /min [facility] Respiratory rate 2021-11-25 01:45:00 18 /min [facility] Oxygen saturation in 2021-11-25 01:45:00 99 /min [facility] Arterial blood by [facility] Pulse oximetry Branch Body temperature 2021-11-25 00:45:48 36.94 Mariia Univ ersity of [facility] Systolic blood 2021-05-15 08:20:00 144 mm[Hg] Univer sity of pressure [facility] Diastolic blood 2021-05-15 08:20:00 71 mm[Hg] Unive rsity of pressure [facility] Heart rate 2021-05-15 08:20:00 61 /min Universi ty [facility] [place] [facility] Body temperature 2021-05-15 08:20:00 36.89 Mariia Univ ersity of [place] [facility] Respiratory rate 2021-05-15 08:20:00 16 /min Univ ersity of [place] [facility] Oxygen saturation in 2021-05-15 08:20:00 99 /min University of Arterial blood by [place] [facility] Pulse oximetry Branch Systolic blood 2020-09-08 01:35:00 148 mm[Hg] Univer sity of pressure [place] [facility] Diastolic blood 2020-09-08 01:35:00 75 mm[Hg] Unive rsity of pressure [place] [facility] Heart rate 2020-09-08 01:35:00 81 /min Universi ty of [place] [facility] Respiratory rate 2020-09-08 01:35:00 18 /min Univ ersity of [place] [facility] Oxygen saturation in 2020-09-08 01:35:00 97 /min University of Arterial blood by [facility] tacho Pulse oximetry Branch Body temperature 2020-09-07 22:17:00 36.67 Mariia Univ ersity of [place] [facility] Body weight 2020-09-07 22:17:00 117.935 kg Universi ty of [place] [facility] BMI 2020-09-07 22:17:00 43.27 kg/m2 Universi ty of [place] [facility] Systolic blood 2020-09-08 01:35:00 148 mm[Hg] Univer sity of pressure [place] [facility] Diastolic blood 2020-09-08 01:35:00 75 mm[Hg] Unive rsity of pressure [place] [facility] Heart rate 2020-09-08 01:35:00 81 /min Universi ty [facility] [place] [facility] Respiratory rate 2020-09-08 01:35:00 18 /min Univ ersity of [place] [facility] Oxygen saturation in 2020-09-08 01:35:00 97 /min University of Arterial blood by [facility] tacho Pulse oximetry Branch Body temperature 2020-09-07 22:17:00 36.67 Mariia Univ ersity of [place] [facility] Body weight 2020-09-07 22:17:00 117.935 kg Universi ty [facility] [place] [facility] BMI 2020-09-07 22:17:00 43.27 kg/m2 Universi ty of [place] [facility] Systolic blood 2020-09-07 22:01:00 197 mm[Hg] Univer sity of pressure [place] [facility] Diastolic blood 2020-09-07 22:01:00 94 mm[Hg] Unive rsity of pressure [place] [facility] Heart rate 2020-09-07 22:01:00 89 /min Universi ty [facility] [place] [facility] Body temperature 2020-09-07 20:44:00 36.33 Mariia Univ ersity of [place] [facility] Respiratory rate 2020-09-07 20:44:00 16 /min Univ ersity of [place] [facility] Body height 2020-09-07 20:44:00 165.1 cm Universi ty [facility] [place] [facility] Body weight 2020-09-07 20:44:00 118.207 kg Universi ty [facility] [place] [facility] BMI 2020-09-07 20:44:00 43.37 kg/m2 Universi ty [facility] [place] [facility] Systolic blood 2020-09-07 22:01:00 197 mm[Hg] Univer sity of pressure [place] [facility] Diastolic blood 2020-09-07 22:01:00 94 mm[Hg] Unive rsity of pressure [place] [facility] Heart rate 2020-09-07 22:01:00 89 /min Universi ty [facility] [place] [facility] Body temperature 2020-09-07 20:44:00 36.33 Mariia Univ ersity [facility] [place] [facility] Respiratory rate 2020-09-07 20:44:00 16 /min Univ ersity of [place] [facility] Body height 2020-09-07 20:44:00 165.1 cm Universi ty [facility] [place] [facility] Body weight 2020-09-07 20:44:00 118.207 kg Universi ty [facility] [place] [facility] BMI 2020-09-07 20:44:00 43.37 kg/m2 Universi ty [facility] [place] [facility] Systolic blood 2020-08-27 02:06:53 149 mm[Hg] Univer sity of pressure [place] [facility] Diastolic blood 2020-08-27 02:06:53 79 mm[Hg] Unive rsity of pressure [place] [facility] Heart rate 2020-08-27 02:06:53 67 /min Universi ty [facility] [place] [facility] Body temperature 2020-08-27 02:06:53 36.5 Mariia Univ ersity of [place] [facility] Respiratory rate 2020-08-27 02:06:53 15 /min Univ ersity of [facility] Oxygen saturation in 2020-08-27 02:06:53 98 /min University of Arterial blood by [facility] Pulse oximetry Branch Body weight 2020-08-26 23:36:00 116.574 kg Universi ty of [facility] BMI 2020-08-26 23:36:00 42.77 kg/m2 Universi ty of [facility] Systolic blood 2020-08-26 22:10:00 177 mm[Hg] Univer sity of pressure [facility] Diastolic blood 2020-08-26 22:10:00 88 mm[Hg] Unive rsity of pressure [facility] Heart rate 2020-08-26 22:08:00 72 /min Universi ty of [facility] Body temperature 2020-08-26 22:08:00 36.39 Mariia Univ ersity of [facility] Respiratory rate 2020-08-26 22:08:00 16 /min Univ ersity of [facility] Body height 2020-08-26 22:08:00 165.1 cm Universi ty of [facility] Body weight 2020-08-26 22:08:00 116.745 kg Universi ty of [facility] BMI 2020-08-26 22:08:00 42.83 kg/m2 Universi ty of [facility] Systolic blood 2019-05-13 21:11:00 142 mm[Hg] Univer sity of pressure [facility] Diastolic blood 2019-05-13 21:11:00 78 mm[Hg] Unive rsity of pressure [facility] Systolic blood 2019-05-13 20:20:00 173 mm[Hg] Univer sity of pressure [facility] Diastolic blood 2019-05-13 20:20:00 88 mm[Hg] Unive rsity of pressure [facility] Heart rate 2019-05-13 20:15:00 75 /min Universi ty of [facility] Body temperature 2019-05-13 20:15:00 36.28 Mariia Univ ersity of [facility] Body height 2019-05-13 20:15:00 165.1 cm Universi ty of [facility] Body weight 2019-05-13 20:15:00 116.234 kg Universi ty of [facility] BMI 2019-05-13 20:15:00 42.64 kg/m2 Universi ty of [facility] Procedures Procedure Date / Time Performing Clinician Source Performed URINALYSIS 2021-11-25 02:24:00 Pat Herzog [facility] TROPONIN I 2021-11-25 01:53:00 Pat Herzog [facility] COMP. METABOLIC PANEL 2021-11-25 01:53:00 Pat Herzog [facility] ([id number]) [facility] CBC WITH DIFF 2021-11-25 01:53:00 Pat Herzog [facility] D-DIMER 2021-11-25 01:53:00 Pat Herzog [facility] N-TERMINAL PRO-BNP 2021-11-25 01:53:00 Pat Herzog [facility] XR CHEST 2 VW 2021-11-25 01:27:45 Pat Herzog [facility] CONSENT/REFUSAL FOR 2021-11-25 00:42:46 Doctor Unassigned, [facility] DIAGNOSIS AND TREATMENT [facility] ABDOMEN PELVIS W 2021-05-15 07:09:39 Suresh Oleary [facility] CONTRAST [facility] Branch COVID-19 (ID NOW RAPID 2021-05-15 03:17:00 Suresh Oleary [facility] TESTING) Medical Branch PHOSPHORUS 2021-05-15 03:16:[address] [facility] LIPASE 2021-05-15 03:16:00 Mamta, [facility] MAGNESIUM 2021-05-15 03:16:00 Mamta, [facility] TROPONIN I 2021-05-15 03:16:00 Suresh Oleary [facility] COMP. METABOLIC PANEL 2021-05-15 03:16:00 Suresh Oleary [facility] ([id number]) Medical Branch CBC WITH DIFF 2021-05-15 03:16:[address] [facility] D-DIMER 2021-05-15 03:16:00 Mamta [facility] URINALYSIS 2021-05-15 03:16:00 Mamta, [facility] N-TERMINAL PRO-BNP 2021-05-15 03:16:00 Suresh Oleary [facility] XR CHEST 2 VW 2021-05-15 02:55:[address] [facility] CONSENT/REFUSAL FOR 2021-05-15 02:26:49 Doctor Unasstrevor, [facility] DIAGNOSIS AND TREATMENT [facility] CONSENT/REFUSAL FOR 2020-09-07 22:14:49 Doctor Aliyasstrevor [facility] DIAGNOSIS AND TREATMENT [facility] ASSIGNMENT OF BENEFITS 2020-09-07 20:23:20 [facility] XR CHEST 1 VW 2020-08-27 00:41:[address] [facility] TROPONIN I 2020-08-27 00:34:[address] [facility] COMP. METABOLIC PANEL 2020-08-27 00:34:00 Carmenza Mckinley [facility] ([id number]) [place] CBC WITH DIFF 2020-08-27 00:34:[address] [facility] PROTHROMBIN TIME / INR 2020-08-27 00:34:00 Carmenza [facility] ACTIVATED PARTIAL THRMPLAS 2020-08-27 00:34:00 [facility] 2020-08-27 00:34:[address] [facility] NOTICE OF PRIVACY 2020-08-26 23:26:21 Doctor Cornelius, [facility] PRACTICES [place] [place] CONSENT/REFUSAL FOR 2020-08-26 23:25:28 Doctor Cornelius [facility] DIAGNOSIS AND TREATMENT [facility] [place] URINE CULTURE 2020-08-26 22:59:00 Key Richardson [facility] FLU VACC ([id number]), 6+ 2020-08-26 22:48:43 Key Richardson [facility] MONTHS, IM, QUAD Medical Branch POCT URINALYSIS W/O 2020-08-26 22:15:00 Key Richardson [facility] SPECIFIC GRAVITY [facility] POCT URINALYSIS 2019-05-13 20:43:00 Devika Hirsch [facility] NO SHOW OR MISSED 2019-05-13 20:00:36 Doctor Unassigned, Univers [facility] APPOINTMENT POLICY [place] ACKNOWLEDGEMENT Encounters Start End Encounter Admission Attending Care Care Encounter Source Date/Time Date/Time Type Type Clinicians Facility Department ID 2021-07-24 Emergency [facility] [id number] Univers 17:15:12 ity of [facility] 2021-07-22 Emergency [facility] [id number] Univers 11:44:33 ity of [facility] 2021-07-22 Emergency [facility] [id number] Univers 09:23:58 ity of [facility] 2021-11-24 2021-11-24 Emergency X CACACE, [facility] ERT [id number] Univers 18:45:00 21:21:00 PAT ity [facility] 2021-11-24 2021-11-24 Emergency Cacace, [place] [id number] Univers 18:45:00 21:21:00 Pat Gonzalez CENTER [id number] [id number] [id number] [address] 2021-05-14 2021-05-15 Emergency Mamta, [place] [id number] Univers 21:27:00 03:51:00 Suresh Wood CENTER [id number] [id number] [id number] [address] 2021-01-23 2021-01-23 [facility] [id number] Univers 13:39:55 23:59:00 Encounter Key C SPECIALTY [id number] ity of [id number] [id number] Ny romeo RUGGIERO [address] [place] [address] 2021-01-23 2021-01-23 [facility] [id number] 13:39:55 23:59:00 Encounter Key C SPECIALTY [id number] CARE [id number] CENTER AT [id number] MONIK [address] [place] [address] 2021-01-23 2021-01-23 Outpatient R [facility] [id number] Univers 09:15:00 09:15:00 KEY [id number] ity o f [facility] 2021-01-23 2021-01-23 Outpatient R JENNYPE, [facility] [id number] Univers 00:00:00 00:00:00 KEY ity o f [facility] 2021-01-23 2021-01-23 [facility] [id number] Univers 00:00:00 00:00:00 Key C [employer] [id number] ity of REGIONAL [id number] [place] as MATERNAL [id number] [facility] ical & CHILD [address] [place] [address] 2021-01-23 2021-01-23 [facility] [id number] 00:00:00 00:00:00 Key C INSPECTOR [employer]ING [id number] REGIONAL [id number] MATERNAL [id number] & [address] 2021-01-13 2021-01-13 Outpatient R AKINSIPE, [facility] [id number] Univers 13:15:00 13:15:00 KEY [id number] ity o [facility] 2021-01-13 2021-01-13 Outpatient R ERIKSIPE, [facility] [id number] Univers 13:15:00 13:15:00 KEY ity o [facility] 2021-01-02 2021-01-02 [facility] [id number] [facility] 00:00:00 00:00:00 Key C INSPECT[employer]ING [id number] ity of REGIONAL [id number] [place] as MATERNAL [id number] [facility] & CHILD [address] [place] [address] 2021-01-02 2021-01-02 [facility] [id number] 00:00:00 00:00:00 Key C INSPECTOR [employer] [id number] REGIONAL [id number] MATERNAL [phone] & CHILD [address] [place] [address] 2020-12-07 2020-12-07 Outpatient R AKINSIPE, [facility] [id number] Univers 15:00:00 15:00:00 KEY [id number] ity o f [facility] 2020-12-07 2020-12-07 Outpatient R AKINSIPE, [facility] [id number] Univers 15:00:00 15:00:00 KEY ity o f [facility] 2020-12-07 2020-12-07 Outpatient R AKINSIPE, [facility] [id number] Univers 15:00:00 15:00:00 KEY ity o [facility] 2020-11-23 2020-11-23 Outpatient R AKINSIPE, [facility] [id number] Univers 14:15:00 14:15:00 KEY [id number] ity o [facility] 2020-11-23 2020-11-23 Outpatient R AKINSIPE, [facility] [id number] Univers 00:00:00 00:00:00 KEY ity o [facility] 2020-11-11 2020-11-11 [facility] [id number] Univers 00:00:00 00:00:00 Key C INSPECT[employer]ING [id number] ity of REGIONAL [id number] [place] as MATERNAL [id number] Med ical & CHILD [address] [place] [address] 2020-11-11 2020-11-11 [facility] [id number] 00:00:00 00:00:00 Key C INSPECT[employer]ING [id number] REGIONAL [id number] MATERNAL [id number] & CHILD [address] [place] [address] 2020-10-17 2020-10-17 [facility] [id number] Univers 00:00:00 00:00:00 (Out) Key C INSPECT[employer]ING [id number] ity of REGIONAL [id number] [place] as MATERNAL [id number] Med ical & CHILD [address] [place] [address] 2020-10-17 2020-10-17 Letter Eriksipe, [facility] [id number] 00:00:00 00:00:00 (Out) Key Ricks INSPECT[employer] [id number] [facility] [id number] MATERNAL [id number] & CHILD [address] [place] [address] 2020-10-07 2020-10-07 Outpatient R AKINSIPE, [facility] [id number] Univers 15:00:00 15:00:00 KEY [id number] ity o [facility] 2020-10-07 2020-10-07 Outpatient R AKINSIPE, [facility] [id number] Univers 15:00:00 15:00:00 KEY meyery o f [facility] 2020-10-04 2020-10-04 Outpatient R AKINSIPE, [facility] [id number] Univers 14:15:00 14:15:00 KEY [id number] ity o [facility] 2020-10-04 2020-10-04 Outpatient R AKINSIPE, [facility] [id number] Univers 14:15:00 14:15:00 KEY meyery o f [facility] 2020-09-20 2020-09-20 Outpatient R AKINSIPE, [facility] [id number] Univers 13:30:00 13:30:00 KEY [id number] mitchy o [facility] 2020-09-20 2020-09-20 Outpatient R AKINSIPE, [facility] [id number] Univers 13:30:00 13:30:00 KEY meyery o [facility] 2020-09-07 2020-09-07 Emergency [facility] [id number] Univers 16:29:00 20:08:00 Yenny Hall [id number] [place] [id number] [facility] [place] [id number] [address] 2020-09-07 2020-09-07 Emergency [facility] [id number] 16:29:00 20:08:00 Yenny Hall 350.1.13.10 [place] [id number] [place] [id number] 2020-09-07 2020-09-07 Office Akinsipe, [facility] [id number] Univers 14:27:17 15:59:19 Visit Key Ricks [employer]PECT[employer]ING 350.1.13.10 ity [facility] [id number] [place] as MATERNAL [id number] Med ical & CHILD [address] [place] [address] 2020-09-07 2020-09-07 Office Akinsipe, [facility] [id number] 14:27:17 15:59:19 Visit Key Ricks [employer] [id number] [facility] [id number] MATERNAL [id number] & CHILD [address] [place] [address] 2020-09-07 2020-09-07 Outpatient R AKINSIPE, [facility] [id number] Univers 14:30:00 14:30:00 KEY [id number] ity o [facility] 2020-09-07 2020-09-07 Outpatient R AKINSIPE, [facility] [id number] Univers 14:30:00 14:30:00 KEY meyery o [facility] 2020-09-07 2020-09-07 Orders Doctor ARIK [id number] Univers 00:00:00 00:00:00 Only Unassigned, FARAZ 350.1.13.10 ity of [facility] 4.2.7.2.686 [place] as [id number] [address] 2020-09-05 2020-09-05 Outpatient R HIRSCH, [facility] [id number] Univers 15:00:00 15:00:00 DEVIKA [id number] ity o [facility] 2020-09-02 2020-09-02 Outpatient R AKINSIPE, [facility] [id number] Univers 10:30:00 10:30:00 KEY [id number] ity o f [facility] 2020-09-02 2020-09-02 Outpatient R AKINSIPE, [facility] [id number] Univers 10:30:00 10:30:00 KEYLB guzmán o f [facility] 2020-08-26 2020-08-26 Emergency Mckinley, [facility] [id number] Univers 17:30:00 20:13:00 Carmenza [place] 350.1.13.10 i ty [facility] [id number] [place] [id number] [address] 2020-08-26 2020-08-26 Office Debra, [facility] [id number] Univers 15:55:58 17:12:33 Visit Key C INSPECTOR BRAKE LINING [id number] [facility] [id number] [place] as MATERNAL [id number] [facility] ical & CHILD [address] [place] [address] 2020-08-26 2020-08-26 Office Debra [facility] [id number] Univers 16:51:05 17:11:04 Visit Key Ricks INSPECTOR [employer]ING [id number] [facility] [id number] [place] as MATERNAL [id number] [facility] ical & CHILD [address] [place] [address] 2020-08-26 2020-08-26 Nurse Visit, [facility] [id number] .[id number] Univers 16:20:49 16:35:49 Visit Key Richardson INS[employer]ING 350.1.13. [address] [facility] [id number] [place] as MATERNAL [id number] [facility] & CHILD [address] [place] [address] 2020-08-26 2020-08-26 Outpatient R [facility] [id number] Univers 15:30:00 15:30:00 [id number] ity of [facility] 2020-08-26 2020-08-26 Outpatient R [facility] [id number] Univers 15:30:00 15:30:00 ity of [facility] 2020-08-26 2020-08-26 [facility] [id number] Univers 15:15:00 15:15:00 KEY ity o f [facility] 2020-08-26 2020-08-26 Outpatient [facility] [facility] [id number] Univers 15:00:00 15:00:00 KEY mclaughlin [facility] 2019-12-14 2019-12-14 Telephone Ananda ALMARNIO [id number] Univers 00:00:00 00:00:00 Devika Zelaya INSPECTOR BRAKE LINING 350.1.13.[address] [facility] 4.2.7.2.686 Magdaleno as MATERNAL [phone] [facility] ical & CHILD [address] [place] [address] 2019-05-13 2019-05-13 Office Ananda [facility] [id number] Univers 15:01:34 16:41:19 Visit Devika Zelaya INSPECTOR BRAKE LINING 350.1.13.[address] [facility] 4.2.7.2.686 Magdaleno as MATERNAL [phone] [facility] & CHILD [address] [place] [address] 2019-05-13 2019-05-13 Orders Doctor ARIK [id number] Univers 00:00:00 00:00:00 Only Unassigned, FARAZ 350.1.13.10 ity of [place] [facility] 4.2.7.2.686 Magdaleno as [phone] [address] 2009-12-23 2009-12-26 [facility] [id number] Univers 23:02:00 14:30:00 KILLIAN 0 ramirez torres [facility] Results Test Description Test Time Test Comments Results Result Comments Source TROPONIN I 2021-11-25 03:09:39 Test Item Value Reference Range Interpretation Comme nts TROPONIN I (test code = 0.003 ng/mL See_Comment [Au tomated message] The 4541588191) system which ge nerated this result tra [...] biotin. Lab Interpretation Normal (test code = 94579-9) [id number] 03:09:39 Test Item Value Reference Range Interpretation Comments NT-proBNP (test code 142 pg/mL See_Comment H [Autom ated = 6208835280) message] The system which generated this result transmitted reference range : <=125. The reference range was not used to interpret this result as normal/abnormal . ESTEFANI (test code = ESTEFANI) Biotin has been reported to cause a negative bias, interpret results relative to patient's use of biotin. Lab Interpretation Abnormal (test code = 92557-4) [facility]OL[facility] ([id number])2021-11-25 02:30:30 Test Item Value Reference Range Interpretation Comments NA (test code = 135 mmol/L 135-145 5769409841) K (test code = 4.1 mmol/L 3.5-5.0 1160855031) CL (test code = 102 mmol/L 98-108 9038808611) CO2 TOTAL (test code 24 mmol/L 23-31 = 3881101206) AGAP (test code = 2-16 2542079979) BUN (test code = 10 mg/dL 7-23 4862874325) GLUCOSE (test code = 102 mg/dL 70-110 9459988599) CREATININE (test code 0.79 mg/dL 0.50-1.04 = 1515185285) TOTAL BILI (test code 0.3 mg/dL 0.1-1.1 = 7040159562) CALCIUM (test code = 8.8 mg/dL 8.6-10.6 4190484922) T PROTEIN (test code 7.3 g/dL 6.3-8.2 = 9853588123) ALBUMIN (test code = 4.4 g/dL 3.5-5.0 5450759890) ALK PHOS (test code = 87 U/L 34-122 3689417681) ALTv (test code = 16 U/L 5-35 1742-6) AST(SGOT) (test code 22 U/L 13-40 = 7612024001) eGFR (test code = mL/min/1.73m2 9789640628) ESTEFANI (test code = ESTEFANI) Association of Glomerular Filtration Rate (GFR) and Staging of Kidney Disease* + + +- +| GFR (mL/min/1.73 m2) ?| With Kidney Damage ?| ?Without Kidney Damage+ ------+ ----+ ------+| ?>90 ?| ?Stage one ?| ? Normal ?+ -+ + -+| ?60-89 ?| ?Stage two ?| ? Decreased GFR ? + + +- +| ?30-59 ?| ?Stage three ?| ? Stage three ? + + +- +| ?15-29 ?| ?Stage four ? | ? Stage four ?+ -+ + -+| ?<15 (or dialysis) ? ?| ?Stage five ? | ? Stage five ?+ -+ + -+ *Each stage assumes the associated GFR level [...] or urine or abnormalities in imaging tests). [facility]-[id number] 02:23:30 Test Item Value Reference Interpretation Comments Range D-DIMER (test code = See_Comment [Autom ated 4268213469) message] The system which generated this result [...] diagnosis. Lab Interpretation Normal (test code = 36592-3) [facility] WITH [id number] 02:18:48 Test Item Value Reference Range Interpretation Comments WBC (test code = See_Comment [Automated 0576-2) message] The sy stem which generated this result transmitted reference range : 4.30 - 11.10 10*3/?L. The reference range was not used to interpret this result as normal/abnormal . RBC (test code = See_Comment [Automated 944-8) message] The sy stem which generated this result transmitted reference range : 3.93 - 5.25 10*6/?L. The reference range was not used to interpret this result as normal/abnormal . HGB (test code = 13.8 g/dL 11.6-15.0 718-7) HCT (test code = 39.3 % 35.7-45.2 4544-3) MCV (test code = 91.8 fL 80.6-95.5 787-2) MCH (test code = 32.2 pg 25.9-32.8 785-6) MCHC (test code = 35.1 g/dL 31.6-35.1 786-4) RDW-SD (test code = 40.4 fL 39.0-49.9 42676-9) RDW-CV (test code = 12.0 % 12.0-15.5 788-0) PLT (test code = See_Comment [Automated 907-3) message] The sy stem which generated this result transmitted reference range : 166 - 358 10*3/ ?L. The reference r aaron was not used to interpret this result as normal/abnormal . MPV (test code = 8.8 fL 9.5-12.9 L 85476-7) NRBC/100 WBC (test See_Comment [Automat ed code = 7534499092) message] The system which generated this result transmitted reference range : 0.0 - 10.0 /100 WBCs. The refer ence range was not u sed to interpret th is result as normal/abnormal . NRBC x10^3 (test code <0.01 See_Comment [Auto mated = 2302153820) message] The s ystem which generated this result transmitted reference range : 10*3/?L. The reference range was not used to interpret this result as normal/abnormal . GRAN MAT (NEUT) % 64.3 % (test code = 770-8) IMM GRAN % (test code 0.20 % = 5192919320) LYMPH % (test code = 23.8 % 736-9) MONO % (test code = 8.1 % 5905-5) EOS % (test code = 3.2 % 713-8) BASO % (test code = 0.4 % 706-2) GRAN MAT x10^3(ANC) 5.35 10*3/uL 1.88-7.09 (test code = 4847684935) IMM GRAN x10^3 (test <0.03 0.00-0.06 code = 4949175784) LYMPH x10^3 (test code 1.98 10*3/uL 1.32-3.29 = 731-0) MONO x10^3 (test code 0.67 10*3/uL 0.33-0.92 = 742-7) EOS x10^3 (test code = 0.27 10*3/uL 0.03-0.39 711-2) BASO x10^3 (test code 0.03 10*3/uL 0.01-0.07 = 704-7) Lab Interpretation Abnormal (test code = 99864-3) [facility]-PCR/[id number] 15:39:22 Test Item Value Reference Interpretation Comments Range SARS-CoV-2 NEGATIVE SEE NOTE SARS-CoV-2 RNA NOT INTERPRETATION DETECTEDNegat roz (test code = 36734) results do not preclude SARS-CoV-2 infe ction and should notb e used as the sole bas is for patient managem ent decisions. Negativeresults must be combined with c linical observations, p atient history,and epidemiological information. Op timum specimen types and timingfor peak viral levels during infections caus ed by SARS-CoV-2 have notbeen determined. Col lection of multiple spe cimens or types ofspec imens may be necessar y to detect virus. I mproper specimencollect ion and handling, seque nce variability und er primers/probes, or organism presen t below the limit of de tection may lead to falsenegative r esults. Positive and ne gative predictive valu es oftesting are h ighly dependent on prevalence. Fal se negative testre sults are more likely when prevalence is h igh. SOURCE (test code = NOT SPECIFIED Note: [place] [address]) Pratima Lisha Nancy l-Time RT-PCR. The exp ected result or ref erence range is NEGATI VE (Not Detected). For more information reg arding COVID-19 testin g to include clinicalinforma tion, methodology det ail, intended use, F DA authorization andrecommended fact sheets for elie ents or healthcare prov iders, see NewTest Announcement: SARS-CoV-2 (COV ID-19) by NAAT at URL below (note,fact shee ts are provided by met hod given in report:https:// www.[email or web address]/clinici [email or web address] nt-communicatio ns/ Alternatively, see downloadable PD F fact sheet at:https://www. [employer]/COVID-19-RT -PCR UNLESS OTHERW ISE INDICATED, ALL TESTING PERFORMED [facility] NICAL PATHOLOG[facility] [employer] [address] [place] [address] 4 LABORATORY DI NADER: Angélica HAQUE [id number] CAP ACCREDITATION N O. [id number] TROPONIN [id number] 04:08:08 Test Item Value Reference Interpretation Comments Range TROPONIN I (test 0.002 ng/mL See_Comment [Automated code = 5656709679) message] The system which generated this result [...] biotin. Lab Interpretation Normal (test code = 19485-1) [facility] [id number] 04:08:08 Test Item Value Reference Range Interpretation Comments NT-proBNP (test code 210 pg/mL See_Comment H [Autom ated = 8834119125) message] The system which generated this result transmitted reference range : <=125. The reference range was not used to interpret this result as normal/abnormal . ESTEFANI (test code = ESTEFANI) Biotin has been reported to cause a negative bias, interpret results relative to patient's use of biotin. Lab Interpretation Abnormal (test code = 06040-3) [facility] 04:00:38 Test Item Value Reference Range Interpretation Comments APPEARANCE (test code = Clear Clear 6140116290) COLOR (test code = Yellow Yellow 5779031943) PH (test code = 4.8-8.0 5649494622) SP GRAVITY (test code = 1.003-1.030 5310072733) GLU U QUAL (test code = Normal Normal 2961030552) BLOOD (test code = Negative Negative 0597073685) KETONES (test code = Negative Negative 1501894553) PROTEIN (test code = Negative Negative 2887-8) UROBILIN (test code = Normal Normal 8990513000) BILIRUBIN (test code = Negative Negative 0663407161) NITRITE (test code = Negative Negative 0007281480) LEUK ANGELICA (test code = Negative Negative 2051020057) RBC/HPF (test code = See_Comment [Autom ated message] 3204612126) The system [employer] generated this result transmitted ref erence range: 0 - 3 HP F. The reference range was not used to int erpret this result as normal/abnormal . WBC/HPF (test code = See_Comment [Autom ated message] 8063043985) The system [employer] generated this result transmitted ref erence range: 0 - 5 HP F. The reference range was not used to int erpret this result as normal/abnormal . BACTERIA (test code = Negative Negative 8976985267) SQ EPITH (test code = See_Comment H [Auto mated message] 3914191299) The system [employer] generated this result transmitted ref erence range: <=2 HPF. The reference range was not used to int erpret this result as normal/abnormal . Lab Interpretation (test Abnormal code = 89085-4) [facility] METABOLIC PANEL (23702)2021-05-15 03:54:11 Test Item Value Reference Range Interpretation Comments NA (test code = 134 mmol/L 135-145 L 9618789739) K (test code = 4.0 mmol/L 3.5-5.0 9745440883) CL (test code = 100 mmol/L 98-108 4879175256) CO2 TOTAL (test code = 25 mmol/L 23-31 2020224699) AGAP (test code = 2-16 7423741618) BUN (test code = 12 mg/dL 7-23 3432047975) GLUCOSE (test code = 97 mg/dL 70-110 4278402112) CREATININE (test code = 0.82 mg/dL 0.50-1.04 7217804104) TOTAL BILI (test code = 0.4 mg/dL 0.1-1.7 5217260824) CALCIUM (test code = 9.0 mg/dL 8.6-10.6 1244054176) T PROTEIN (test code = 7.2 g/dL 6.3-8.2 5878014131) ALBUMIN (test code = 4.3 g/dL 3.5-5.0 9033937162) ALK PHOS (test code = 74 U/L 34-122 3964366379) ALTv (test code = 40 U/L 5-35 H 1742-6) AST(SGOT) (test code = 34 U/L 13-40 2994653579) eGFR (test code = mL/min/1.73m2 9073251699) ESTEFANI (test code = ESTEFANI) Association of [...] tests). Lab Interpretation Abnormal (test code = 25389-6) [facility]21[facility] 03:54:11 Test Item Value Reference Range Interpretation Comments PHOSPHORUS (test code = 0688898843) 4.0 mg/dL 2.5-5.0 Lab Interpretation (test code = Normal 46184-1) [facility]2021-08-23 03:54:11 Test Item Value Reference Range Interpretation Comments MAGNESIUM (test code = 8873178552) 1.9 mg/dL 1.7-2.4 Lab Interpretation (test code = Normal 69252-4) [facility]21-[facility]23 03:54:11 Test Item Value Reference Range Interpretation Comments LIPASE (test code = 0758686874) 124 U/L 0-220 Lab Interpretation (test code = Normal 12151-0) [facility]D-[id number] 03:53:41 Test Item Value Reference Interpretation Comments Range D-DIMER (test code = <0.21 See_Comment [Autom ated 4234889425) message] The system which generated this result [...] diagnosis. Lab Interpretation Normal (test code = 10323-7) [facility] ([facility] NOW RAPID TESTING)2021-05-15 03:50:30 Test Item Value Reference Range Interpretation Comments SARS-CoV-2 Rapid ID NOW Not Detected Not Detected (test code = 93829-2) ESTEFANI (test code = ESTEFANI) ID NOW COVID-19 Assay is an isothermal nucleic acid amplification test intended for the qualitative detection of nucleic acid from SARS-CoV-2 viral RNA in nasopharyngeal (BERRY PICKER) specimens. It is used under Emergency Use [...] indicated. Lab Interpretation Normal (test code = 88911-0) [facility] WITH [id number] 03:37:28 Test Item Value Reference Range Interpretation [...] RDW-SD (test code = 45.2 fL 39.0-49.9 36432-7) RDW-CV (test code = 12.8 % 12.0-15.5 788-0) PLT (test code = See_Comment [Automated 777-3) message] The sy stem which generated this result transmitted reference range : 166 - 358 10*3/ ?L. The reference r aaron was not used to interpret this result as normal/abnormal . MPV (test code = 8.7 fL 9.5-12.9 L 01853-8) NRBC/100 WBC (test See_Comment [Automat ed code = 6331227385) message] The system which generated this result transmitted reference range : 0.0 - 10.0 /100 WBCs. The refer ence range was not u sed to interpret th is result as normal/abnormal . NRBC x10^3 (test code <0.01 See_Comment [Auto mated = 7818717081) message] The s ystem which generated this result transmitted reference range : 10*3/?L. The reference range was not used to interpret this result as normal/abnormal . GRAN MAT (NEUT) % 63.9 % (test code = 770-8) IMM GRAN % (test code 0.20 % = 7076903186) LYMPH % (test code = 25.4 % 736-9) MONO % (test code = 8.5 % 5905-5) EOS % (test code = 1.3 % 713-8) BASO % (test code = 0.7 % 706-2) GRAN MAT x10^3(ANC) 5.37 10*3/uL 1.88-7.09 (test code = 0113234225) IMM GRAN x10^3 (test <0.03 0.00-0.06 code = 2080404172) LYMPH x10^3 (test code 2.13 10*3/uL 1.32-3.29 = 731-0) MONO x10^3 (test code 0.71 10*3/uL 0.33-0.92 = 742-7) EOS x10^3 (test code = 0.11 10*3/uL 0.03-0.39 711-2) BASO x10^3 (test code 0.06 10*3/uL 0.01-0.07 = 704-7) Lab Interpretation Abnormal (test code = 58685-6) [facility] [id number] 17:23:00 Test Item Value Reference Range Interpretation Comments URINE CULTURE (test > 100,000 CFU/mL mixed code = 630-4) aerobic organisms - suggests endogenous microbial contamination [facility] [id number] 17:23:00 Test Item Value Reference Range Interpretation Comments URINE CULTURE (test > 100,000 CFU/mL mixed code = 630-4) aerobic organisms - suggests endogenous microbial contamination [facility] [id number] 01:33:00 Test Item Value Reference Range Interpretation Comments TROPONIN I (test <0.012 See_Comment [Automated code = 3531405268) message] The system which generated this result [...] ? Lab Interpretation Normal (test code = 41540-5) [facility]ST 1 [id number] 01:31:40 Cardiomegaly with mild prominence of the [...] nota sensitive modality for thedetection of masses. [facility], Radiant Results Inft User - 08/26/2020 [...] edema or pneumonitis. Please correlate clinically.RL: 135 [facility]. METABOLIC PANEL (67048)2020-08-27 01:23:00 Test Item Value Reference Range Interpretation Comments NA (test code = 133 mmol/L 135-145 L 6752516642) K (test code = 4.1 mmol/L 3.5-5 4961096191) CL (test code = 99 mmol/L 98-108 8260459118) CO2 TOTAL (test code = 26 mmol/L 23-31 5714956673) AGAP (test code = 2-16 1122676854) BUN (test code = 8 mg/dL 7-23 3049550782) GLUCOSE (test code = 102 mg/dL 70-110 0032014921) CREATININE (test code = 0.68 mg/dL 0.5-1.04 8775994771) TOTAL BILI (test code = 0.5 mg/dL 0.1-1.6 5579569907) CALCIUM (test code = 9.5 mg/dL 8.6-10.6 4151100963) T PROTEIN (test code = 8.1 g/dL 6.3-8.2 8730869863) ALBUMIN (test code = 4.7 g/dL 3.5-5 5570385609) ALK PHOS (test code = 94 U/L 34-122 4717361067) ALTv (test code = 37 U/L 5-35 H 1742-6) AST(SGOT) (test code = 36 U/L 13-40 1038666597) eGFR Calculation mL/min/1.73m2 (Non-) (test code = 1507216612) eGFR Calculation mL/min/1.73m2 () (test code = 4725446244) ESTEFANI (test code = ESTEFANI) Association of [...] tests). Lab Interpretation Abnormal (test code = 32171-8) [facility]2020-12-05 00:59:00 Test Item Value Reference Range Interpretation Comments APPEARANCE (test code = Clear Clear 7181166158) COLOR (test code = Yellow Yellow 9802662225) PH (test code = 4.8-8.0 6102506324) SP GRAVITY (test code = 1.003-1.030 3811299493) GLU U QUAL (test code = Negative Negative 7354888580) BLOOD (test code = Negative Negative 9335131195) KETONES (test code = Trace Negative A 8689624617) PROTEIN (test code = Negative Negative 2887-8) UROBILIN (test code = 0.2 mg/dL See_Comment [Auto mated message] 4699732207) The system [employer] generated this result transmit luis miguel reference range : 0-1.0 mg/dL. Th e reference range was not used to interpret this result as normal/abnormal . BILIRUBIN (test code = Negative Negative 1864353824) NITRITE (test code = Negative Negative 6285925226) LEUK ANGELICA (test code = Negative Negative 0255521800) RBC/HPF (test code = <1 See_Comment [Autom ated message] 4872392190) The system [employer] generated this result transmit luis miguel reference range : 0 - 3 HPF. The refe rence range was not u sed to interpret th is result as normal/abnormal . WBC/HPF (test code = <1 See_Comment [Autom ated message] 7423318660) The system [employer] generated this result transmit luis miguel reference range : 0 - 5 HPF. The refe rence range was not u sed to interpret th is result as normal/abnormal . BACTERIA (test code = Negative Negative 9495063591) Lab Interpretation (test Abnormal code = 83475-4) [facility]ACT[facility] THRMPLAS [id number] 00:52:00 Test Item Value Reference Range Interpretation Comments APTT Patient (test See_Comment [Automat ed code = 3173-2) message] The system which generated this result transmitted reference range : 23 - 38 Seconds . The reference range was not used to interpr et this result as normal/abnormal . ESTEFANI (test code = ESTEFANI) The [facility] patient population mean normal value for aPTT is 30 seconds. Lab Interpretation Normal (test code = 05909-4) [facility] HospitalPROT[facility]OMBIN [facility] / [id number] 00:50:00 Test Item Value Reference Range Interpretation Comments PROTIME PATIENT (test See_Comment [Auto mated message] code = 5964-2) The system [employer] generated this result transmitted ref erence range: 12.0 - 1 4.7 Seconds. The re ference range was not u sed to interpret this result as normal/abnor mal. INR (test code = 6301-6) Nor mal INR <1.1; Warfarin Therap eutic range 2.0 to 3. 0 or 2.5 to 3.5, dep ending upon the indica tions. Lab Interpretation (test Normal code = 43935-3) [facility] WITH [id number] 00:45:00 Test Item Value Reference Range Interpretation [...] RDW-SD (test code = 41.3 fL 39-49.9 24412-7) RDW-CV (test code = 11.5 % 12-15.5 L 788-0) PLT (test code = See_Comment [Automated 777-3) message] The sy stem which generated this result transmitted reference range : 166 - 358 10*3/ ?L. The reference r aaron was not used to interpret this result as normal/abnormal . MPV (test code = 9.0 fL 9.5-12.9 L 66430-9) NRBC/100 WBC (test See_Comment [Automat ed code = 5573425241) message] The system which generated this result transmitted reference range : 0.0 - 10.0 /100 WBCs. The refer ence range was not u sed to interpret th is result as normal/abnormal . NRBC x10^3 (test code <0.01 See_Comment [Auto mated = 6946383236) message] The s ystem which generated this result transmitted reference range : 10*3/?L. The reference range was not used to interpret this result as normal/abnormal . GRAN MAT (NEUT) % 66.0 % (test code = 770-8) IMM GRAN % (test code 0.10 % = 1105793782) LYMPH % (test code = 21.5 % 736-9) MONO % (test code = 7.8 % 5905-5) EOS % (test code = 4.2 % 713-8) BASO % (test code = 0.4 % 706-2) GRAN MAT x10^3(ANC) 5.16 10*3/uL 1.88-7.09 (test code = 3460919315) IMM GRAN x10^3 (test <0.03 0-0.06 code = 9964942581) LYMPH x10^3 (test code 1.68 10*3/uL 1.32-3.29 = 731-0) MONO x10^3 (test code 0.61 10*3/uL 0.33-0.92 = 742-7) EOS x10^3 (test code = 0.33 10*3/uL 0.03-0.39 711-2) BASO x10^3 (test code 0.03 10*3/uL 0.01-0.07 = 704-7) Lab Interpretation Abnormal (test code = 70250-0) [facility] URINALYSIS W/O SPECIFIC [id number] 22:15:00 Test Item Value Reference Range Interpretation [...] code = 3257) Trace Negative - Negative [facility] URINALYSIS W/O SPECIFIC [id number] 22:15:00 Test Item Value Reference Range Interpretation [...] code = 3257) Trace Negative - Negative [facility] URINALYSIS W SPECIFIC [id number] 20:43:00 Test Item Value Reference Range Interpretation [...] POCT U APPEAR (test code = 3267) [facility] URINALYSIS W SPECIFIC [id number] 20:43:00 Test Item Value Reference Range Interpretation [...] POCT U APPEAR (test code = 3267) [facility] URINALYSIS W SPECIFIC [id number] 20:43:00 Test Item Value Reference Range Interpretation [...] POCT U APPEAR (test code = 3267) [facility] URINALYSIS W SPECIFIC [id number] 20:43:00 Test Item Value Reference Range Interpretation [...] POCT U APPEAR (test code = 3267) [facility] URINALYSIS W SPECIFIC [id number] 20:43:00 Test Item Value Reference Range Interpretation [...] POCT U APPEAR (test code = 3267) [facility] W [facility]CIFIC [id number] 20:43:00 Test Item Value Reference Range Interpretation [...] POCT U APPEAR (test code = 3267) [facility]
[2021-12-01 02:07] LABS: Urine Blood 1+ (Negative); Urine Glucose Negative (Negative); Urine Protein Negative (Negative); Urine Specific Gravity 1.015 (1.005-1.030)
[2021-12-01] MEDS ORDERED: MAGNES/ALUMIN/SIMET 30ML UCUP ONE (02:17)
[2021-12-01] MEDS ORDERED: LIDOCAINE VISCOUS 2% SOLN 15 ML UDC ONE (02:18)
[2021-12-01] MEDS ORDERED: FAMOTIDINE 20 MG/2 ML VIAL IV ONE (02:22)
[2021-12-01] MEDS ORDERED: ONDANSETRON 4 MG/2 ML VIAL ONE (02:22)
[2021-12-01 02:44] LABS: Absolute Lymphocytes (CBC) 1.3 K/uL (0.7-4.9); Hematocrit 41.7 % (36.0-45.0); Lymphocytes % 16.3 % (15.3-44.8); MPV 7.2 fL (7.6-11.3); RBC Red Blood Cell Count 4.39 M/uL (3.86-4.86)
[2021-12-01 02:47] LABS: Urine Bacteria 20-50 /HPF (<20); Urine Mucus 1+ /HPF (NONE SEEN)
[2021-12-01 02:59] LABS: ALT/SGPT 23 U/L (12-78); AST/SGOT 12 U/L (15-37); Albumin 3.8 g/dL (3.4-5.0); Alkaline Phosphatase 100 U/L (45-117); BUN Blood Urea Nitrogen 14 mg/dL (7-18); Bicarbonate 28 mmol/L (21-32); Bilirubin Total 0.2 mg/dL (0.2-1.0); Glucose Level 113 mg/dL (74-106); Lipase 124 U/L (73-393); Protein, Total 8.3 g/dL (6.4-8.2); Sodium Level 135 mmol/L (136-145)
[2021-12-01 03:03] LABS: Bilirubin Direct < 0.1 mg/dL (0-0.2)
--- NOTE | 2021-12-01 04:00 | EDPHYS ---
Physician Documentation [facility] Name: Carmel Rodriguez Age: 61 yrs Sex: Female : 1960 Arrival Date: 12/01/2021 Time: 01:01 Bed 27 Private MD: ED Physician Eleuterio Laboy HPI: 12/01 01:10 This 61 yrs old Female presents to ER via Unassigned with complaints of cp Abdominal Pain. 01:10 The patient presents with abdominal pain in the epigastric area. The symptoms radiate cp to retrosternal area of chest. Associated signs and symptoms: Pertinent positives: nausea, shortness of breath, Pertinent negatives: constipation, diarrhea, fever, vomiting. 01:10 The symptoms are described as dull, fullness. cp 01:10 Modifying factors: the symptoms are aggravated by food. cp Historical: - Allergies: 04:36 ACETAMINOPHEN; sv1 04:36 CALCIUM CARBONATE; sv1 04:36 EXCEDRIN; sv1 04:36 Excedrin PM; sv1 04:36 Ibuprofen; sv1 04:36 NSAIDS; sv1 04:36 Toradol; sv1 - Home Meds: 04:36 buspirone 10 mg Oral tab 3 tabs 2 times per day [Active]; hydralazine 50 mg Oral tab 1 sv1 tab 2 times per day [Active]; hydroxyzine HCl 50 mg Oral tab 1 tab daily [Active]; losartan 100 mg Oral tab 1 tab once daily [Active]; metoprolol tartrate 50 mg Oral tab 1 tab 2 times per day [Active]; mirtazapine 30 mg Oral tab 1 tab once daily [Active]; pantoprazole 40 mg Oral TbEC 1 tab once daily [Active]; Vitamin D2 50,000 unit Oral cap 34738 unit WEEKLY [Active]; - PMHx: 04:36 Anxiety; Depression; Hypertension; sv1 - PSHx: 04:36 section; sv1 - Immunization history:: Adult Immunizations up to date, Client reports receiving the 2nd dose of the Covid vaccine. - Social history:: Smoking status: Patient denies any tobacco usage or history of. ROS: 01:15 Constitutional: Negative for body aches, chills, fever, poor PO intake. cp 01:15 Eyes: Negative for injury, pain, redness, and discharge. cp 01:15 ENT: Negative for ear pain, sore throat, difficulty swallowing, difficulty handling secretions. 01:15 Cardiovascular: Positive for chest pain, of the retrosternal, Negative for edema, cp palpitations. 01:15 Respiratory: Positive for shortness of breath, Negative for cough, wheezing. 01:15 Abdomen/GI: Positive for abdominal pain, nausea, of the epigastric area, Negative for vomiting, diarrhea, constipation, anorexia. 01:15 Back: Negative for radiated pain. 01:15 Neuro: Negative for altered mental status, dizziness, headache, weakness. 01:15 All other systems are negative. Exam: 01:20 Constitutional: The patient appears in no acute distress, alert, awake, cp non-diaphoretic, non-toxic, well developed, well nourished, obese. 01:20 Head/Face: Normocephalic, atraumatic. cp 01:20 Eyes: Periorbital structures: appear normal, Conjunctiva: normal, no exudate, no injection, Sclera: no appreciated abnormality, Lids and lashes: appear normal, bilaterally. 01:20 ENT: External ear(s): are unremarkable, Nose: is normal, Mouth: Lips: moist, Oral mucosa: moist, Posterior pharynx: Airway: no evidence of obstruction, patent. 01:20 Chest/axilla: Inspection: normal. 01:20 Cardiovascular: Rate: normal, Rhythm: regular, Edema: is not appreciated, JVD: is not appreciated. 01:20 Respiratory: the patient does not display signs of respiratory distress, Respirations: normal, no use of accessory muscles, no retractions, labored breathing, is not present, Breath sounds: are clear throughout, no decreased breath sounds, no stridor, no wheezing. 01:20 Abdomen/GI: Inspection: obese Bowel sounds: active, all quadrants, Palpation: soft, in all quadrants, mild abdominal tenderness, in the epigastric area, rebound tenderness, is not appreciated, involuntary guarding, is not appreciated. 01:20 Back: pain, is absent, ROM is normal. 02:47 ECG was reviewed by the Attending Physician. cp Vital Signs: 04:15 BP 152 / 70; Pulse 88; Resp 18; Pulse Ox 94% ; cg1 08:00 BP 138 / 78; Pulse 80; Resp 16; Temp 97.1; Pulse Ox 97% ; td 10:30 BP 138 / 67; Pulse 80; Resp 17; Temp 98.2; Pulse Ox 97% ; jl7 MDM: 01:16 Patient medically screened. cp 10:35 Data reviewed: vital signs, nurses notes, lab test result(s), EKG, radiologic studies, jr8 plain films, ultrasound. Data interpreted: Pulse oximetry: on room air is 97 %. Interpretation: normal. Counseling: I had a detailed discussion with the patient and/or guardian regarding: the historical points, exam findings, and any diagnostic results supporting the discharge/admit diagnosis, lab results, radiology results, the need for outpatient follow up, a general surgeon, a security program manager, to return to the emergency department if symptoms worsen or persist or if there are any questions or concerns that arise at home. ED course: Discussed in detail patients labs and imaging. No acute cardiac or pulmonary findings noted on todays labs or imaging. Cholelithiasis present. Based on her epigastric pain and indigestion like feeling. Most likely gastritis vs PUD vs Gallbladder. Patient with PUD history about a decade ago. Recommended f/u with GI and GS. Patient good with this and will be put on medication. If worse to come back for further evaluation . 03 01:08 Order name: Basic Metabolic Panel; Complete Time: 03:20 cp 12/01 03:20 Interpretation: Normal except: NA 135; GLUC 113; GFR 63. cp 12/01 01:08 Order name: CBC with Diff; Complete Time: 03:20 cp 12/01 03:21 Interpretation: Normal except: MPV 7.2; LEXIS% 74.5. cp 12/01 01:08 Order name: Hepatic Function; Complete Time: 03:20 cp 12/01 03:21 Interpretation: Normal except: TP 8.3; GLOB 4.5; A/G 0.8. cp 12/01 01:08 Order name: Lipase; Complete Time: 03:20 cp 12/01 01:08 Order name: Urine Microscopic Only; Complete Time: 03:20 cp 12/01 03:21 Interpretation: Normal except: UWBC 5-10; URBC 5-10; UBACT 20-50; SQEPI 10-20. cp 12/01 01:08 Order name: Troponin High Sensitivity; Complete Time: 03:20 cp 12/01 01:08 Order name: XRAY Chest (1 view); Complete Time: 09:56 cp 12/01 02:07 Order name: Urine Dipstick-Ancillary; Complete Time: 02:43 EDMS 12/01 04:04 Interpretation: Normal except: UBLD 1+; UESTR 1+. cp 12/01 02:23 Order name: US Abdomen Limited: RUQ cp 12/01 02:48 Order name: Urine Culture EDMS 12/01 09:12 Order name: Glucose, Ancillary Testing; Complete Time: 09:56 EDMS 12/01 01:08 Order name: IV Saline Lock; Complete Time: 02:00 cp 12/01 01:08 Order name: Labs collected and sent; Complete Time: 02:00 cp 12/01 01:08 Order name: Urine Dipstick-Ancillary (obtain specimen); Complete Time: 02:11 cp 12/01 01:08 Order name: EKG; Complete Time: 01:09 cp 12/01 01:08 Order name: EKG - Nurse/Tech; Complete Time: 04:41 cp EC:47 Rate is 75 beats/min. Rhythm is regular. FL interval is normal. QRS interval is normal. cp QT interval is normal. T waves are Inverted in leads III, aVF. Interpreted by me. Reviewed by me. Administered Medications: 02:30 Drug: Zofran (Ondansetron) 4 mg Route: IVP; Site: right antecubital; sv1 04:41 Follow up: Response: No adverse reaction; Pain is decreased sv1 02:30 Drug: Pepcid (famotidine) 20 mg Route: IVP; Site: right antecubital; sv1 04:41 Follow up: Response: No adverse reaction sv1 02:31 Drug: GI Cocktail without - (Maalox Suspension 30 ml, Lidocaine Liquid 2 % 15 sv1 ml) Route: PO; 04:41 Follow up: Response: No adverse reaction; Pain is decreased sv1 04:20 Drug: Rocephin - (cefTRIAXone) 1 grams Route: IVPB; Infused Over: 30 mins; Site: right sv1 antecubital; 05:30 Follow up: IV Status: Completed infusion; IV converted to saline lock sv1 Disposition Summary: 12/01/21 04:00 Discharge Ordered Location: Home cp Problem: new cp Symptoms: have improved cp Condition: Stable cp Diagnosis - Other cholelithiasis without obstruction cp - UTI/ Urinary tract infection, site not specified cp Followup: cp - With: Brad Sanders MD - When: 2 - 3 days - Reason: gallstones Followup: jr8 - With: Suresh Yuen MD - When: 2 - 3 days - Reason: Recheck today's complaints, Continuance of care, Re-evaluation by your physician Discharge Instructions: - Discharge Summary Sheet cp - Urinary Tract Infection, Adult cp - Cholelithiasis cp Forms: - Medication Reconciliation Form cp - Thank You Letter cp - Antibiotic Education cp - Prescription Opioid Use cp Prescriptions: - Zofran 4 mg Oral Tablet - take 1 tablet by ORAL route every 12 hours As needed; 20 tablet; Refills: 0, cp Product Selection Permitted - Cipro 500 mg Oral Tablet - take 1 tablet by ORAL route every 12 hours for 7 days; 14 tablet; Refills: 0, cp Product Selection Permitted - omeprazole 40 mg Oral capsule,delayed release(DR/EC) - take 1 capsule by ORAL route once daily before a meal; 30 capsule; Refills: 0, jr8 Product Selection Permitted - dicyclomine 20 mg Oral Tablet - take 1 tablet by ORAL route 4 times per day; 30 tablet; Refills: 0, Product cp Selection Permitted Addendum: 12/03/2021 19:12 Co-signature as Attending Physician, Eleuterio Laboy MD. [facility] Signatures: Dispatcher [employer] EDMS Timur Campbell PA PA jr8 Jose Angel Russell PA PA cp Holmes, Maurice, MD MD 7 Scott Nagy RN RN sv1 Regine Soto PA PA sb3 Corrections: (The following items were deleted from the chart) 12/01 15:33 01:10 The symptoms are described as dull, cp cp 15:34 01:10 Associated signs and symptoms: Pertinent positives: nausea, cp cp
[2021-12-01] MEDS ORDERED: NA CHLORIDE 0.9% 50 ML ONE (04:17)
[2021-12-01] MEDS ORDERED: CEFTRIAXONE 1000 MG/VIAL ONE (04:17)
--- NOTE | 2021-12-01 07:27 | RAD REPORT ---
EXAM DESCRIPTION: RAD - Chest Single View - 12/01/2021 2:12 am CLINICAL HISTORY: epigastric pain COMPARISON: Chest Single View dated 11/19/2021; Chest Single View dated 11/18/2021; Chest Single View dated 05/10/2021; Chest Single View dated 04/19/2019 FINDINGS: Lines: None. Lungs: No evidence of edema or pneumonia. Pleural: No significant pleural effusions or pneumothorax. Cardiac: Mild cardiomegaly. Bones: No acute fractures. Other: IMPRESSION: No acute cardiopulmonary disease.
--- NOTE | 2021-12-01 11:26 | ER ---
Nurse's Notes [facility] Name: Carmel Rodriguez Age: 61 yrs Sex: Female : 1960 Arrival Date: 12/01/2021 Time: 01:01 Bed 27 Private MD: Diagnosis: Other cholelithiasis without obstruction;UTI/ Urinary tract infection, site not specified Presentation: 12/01 04:34 Chief complaint:. sv1 04:35 Chief complaint: Patient states: abd pain, nausea. Coronavirus screen: Client denies sv1 travel out of the [place] in the last 14 days. Ebola Screen: No symptoms or risks identified at this time. Initial Sepsis Screen: Does the patient meet any 2 criteria? No. Patient's initial sepsis screen is negative. Risk Assessment: Do you want to hurt yourself or someone else? Patient reports no desire to harm self or others. Onset of symptoms was November 30, 2021. 04:35 Method Of Arrival: EMS: [facility] sv1 04:35 Acuity: CHRISTINE 3 sv1 Triage Assessment: 04:36 General: Appears distressed, uncomfortable, obese, well groomed, Behavior is anxious. sv1 Pain: Complains of pain in abdomen. GI: Reports lower abdominal pain, upper abdominal pain. Historical: - Allergies: 04:36 ACETAMINOPHEN; sv1 04:36 CALCIUM CARBONATE; sv1 04:36 EXCEDRIN; sv1 04:36 Excedrin PM; sv1 04:36 Ibuprofen; sv1 04:36 NSAIDS; sv1 04:36 Toradol; sv1 - Home Meds: 04:36 buspirone 10 mg Oral tab 3 tabs 2 times per day [Active]; hydralazine 50 mg Oral tab 1 sv1 tab 2 times per day [Active]; hydroxyzine HCl 50 mg Oral tab 1 tab daily [Active]; losartan 100 mg Oral tab 1 tab once daily [Active]; metoprolol tartrate 50 mg Oral tab 1 tab 2 times per day [Active]; mirtazapine 30 mg Oral tab 1 tab once daily [Active]; pantoprazole 40 mg Oral TbEC 1 tab once daily [Active]; Vitamin D2 50,000 unit Oral cap 56202 unit WEEKLY [Active]; - PMHx: 04:36 Anxiety; Depression; Hypertension; sv1 - PSHx: 04:36 section; sv1 - Immunization history:: Adult Immunizations up to date, Client reports receiving the 2nd dose of the Covid vaccine. - Social history:: Smoking status: Patient denies any tobacco usage or history of. Screenin:39 Abuse screen: Denies threats or abuse. Nutritional screening: No deficits noted. sv1 Tuberculosis screening: No symptoms or risk factors identified. Fall Risk None identified. Assessment: 04:39 Reassessment: All labs collected and sent to the lab. resting quietly. . sv1 10:45 Reassessment: It was noted that pt had not been discharged after night provider order jl7 for discharge. When I went to discharge pt pt was unaware of what her diagnosis and plan of care is. Pt reported confusion why she wasn't admitted. FRANCINE Ding reviewed pt chart and spoke to pt regarding diagnosis and plan of care. Pt discharged post discussion with FRANCINE Ding. Upon discharge pt reported having Medicare and not having the money to see a surgeon. Provided pt with a list of community resources for sliding scale clinics. Educated pt extensively regarding diet to help prevent pain with cholelithiasis until she is able to see a PCP, surgeon or GI physician. Pt verbalized understanding. Vital Signs: 04:15 BP 152 / 70; Pulse 88; Resp 18; Pulse Ox 94% ; cg1 08:00 BP 138 / 78; Pulse 80; Resp 16; Temp 97.1; Pulse Ox 97% ; td 10:30 BP 138 / 67; Pulse 80; Resp 17; Temp 98.2; Pulse Ox 97% ; jl7 ED Course: 01:01 Patient arrived in ED. ag3 01:05 Jose Angel Russell PA is PHCP. cp 01:05 Eleuterio Laboy MD is Attending Physician. cp 01:42 Scott Nagy, MANDI is Primary Nurse. sv1 02:00 Troponin High Sensitivity Sent. sv1 02:00 Basic Metabolic Panel Sent. sv1 02:00 CBC with Diff Sent. sv1 02:00 Hepatic Function Sent. sv1 02:00 Lipase Sent. sv1 02:11 Urine Microscopic Only Sent. sv1 02:12 XRAY Chest (1 view) In Process Unspecified. EDMS 02:57 US Abdomen Limited: RUQ In Process Unspecified. EDMS 03:59 Brad Sanders MD is Referral Physician. cp 04:12 Urine Culture Sent. sv1 04:36 Triage completed. sv1 04:36 Arm band placed on right wrist. sv1 10:20 PHCP role handed off by Jose Angel Russell PA jr8 10:20 Timur Campbell PA is PHCP. jr8 10:21 Suresh Yuen MD is Referral Physician. jr8 10:30 No provider procedures requiring assistance completed. IV discontinued, intact, jl7 bleeding controlled, No redness/swelling at site. Pressure dressing applied. Inserted Upon discharge pt noted to have 20G inserted to right AC. 10:30 Patient has correct armband on for positive identification. Bed in low position. Call jl7 light in reach. Side rails up X 1. groundwater monitoring technician on. Pulse ox on. NIBP on. Upon discharge, pt noted to be connected to quality assurance monitor, pulse ox and BP cuff. Administered Medications: 02:30 Drug: Zofran (Ondansetron) 4 mg Route: IVP; Site: right antecubital; sv1 04:41 Follow up: Response: No adverse reaction; Pain is decreased sv1 02:30 Drug: Pepcid (famotidine) 20 mg Route: IVP; Site: right antecubital; sv1 04:41 Follow up: Response: No adverse reaction sv1 02:31 Drug: GI Cocktail without - (Maalox Suspension 30 ml, Lidocaine Liquid 2 % 15 sv1 ml) Route: PO; 04:41 Follow up: Response: No adverse reaction; Pain is decreased sv1 04:20 Drug: Rocephin - (cefTRIAXone) 1 grams Route: IVPB; Infused Over: 30 mins; Site: right sv1 antecubital; 05:30 Follow up: IV Status: Completed infusion; IV converted to saline lock sv1 Outcome: 04:00 Discharge ordered by . cp 10:45 Discharged to home ambulatory. jl7 10:45 Condition: stable 10:45 Discharge instructions given to patient, Instructed on discharge instructions, follow up and referral plans. medication usage, Demonstrated understanding of instructions, follow-up care, medications, Prescriptions given X 4. 11:25 Patient left the ED. jl7 Signatures: Dispatcher [employer] EDMS Timur Campbell PA PA jrJose Angel Benitez PA PA cp Leal, Jahala, RN RN jl7 Iwona Bocanegra td, Alice ag3 Zen Sutherland cg1 Scott Nagy RN RN sv1
[2021-12-01 11:31] VITALS: O2SAT 97
[2021-12-01 11:32] VITALS: BP 138/67; TEMP 98.2
--- NOTE | 2021-12-01 13:09 | EKG ---
Test Date: 2021-12-01 Test Time: 02:40:56 Branch Retail Executive: EDITA MEASUREMENT RESULTS: Intervals: Rate: 75 NV: 152 QRSD: 80 QT: 358 QTc: 399 [place]: P: 11 NV: 152 QRS: 17 T: -6 INTERPRETIVE STATEMENTS: Normal sinus rhythm Minimal voltage criteria for LVH, may be normal variant Nonspecific T wave abnormality Abnormal ECG Compared to ECG 11/19/2021 02:14:46 T-wave abnormality now present Electronically Signed On 12-01-21 13:07:57 CORPORATE SALES TRAINER by Kishore Bateman
--- NOTE | 2021-12-01 16:48 | RAD REPORT ---
EXAM DESCRIPTION: US - Abdomen Exam Limited - 12/01/2021 2:57 am CLINICAL HISTORY: The patient is 61 years old and is Female; EPIGASTRIC PAIN TECHNIQUE: Real-time ultrasound of the right upper quadrant with image documentation. COMPARISON: No relevant prior studies available. FINDINGS: Gallbladder: Multiple gallstones in the gallbladder. No gallbladder wall thickening. No pericholecystic fluid. Common bile duct: Common bile duct is normal. No stones. No dilation. IMPRESSION: Multiple gallstones in the gallbladder. No gallbladder wall thickening. No pericholecyst ic fluid. Electronically signed by: Jeffery Mcmillan MD 12/01/2021 3:49 AM DIRECTOR [employer]ARK Due to temporary technical issues with the PACS/Fluency reporting system, reports are being signed by the in house radiologists without review as a courtesy to insure prompt reporting. The interpreting radiologist is fully responsible for the content of the report.
== END 2021-12-01 11:25 | disposition home or self-care (01) ==
LOC: ER 00:55
DX: K80.80 Other cholelithiasis without obstruction (principal); N39.0 Urinary tract infection, site not specified; I10 Essential (primary) hypertension; F41.8 Other specified anxiety disorders; Z88.5 Allergy status to narcotic agent; Z88.6 Allergy status to analgesic agent; Z88.8 Allergy status to other drugs, medicaments and biological substances
CPT/HCPCS: 96365; 93005; 87088; 85025; 87086; 80048; 36415; 82947; 80076; 84484; 83690; 71045; 76705; 96375; 99284; J2405; 81003; 81015

== ENCOUNTER 2021-12-07 20:19 | Emergency (ER) | payer OTHER ==
--- OUTSIDE RECORDS SUMMARY | 2021-12-07 20:25 | XMS REPORT | Continuity of Care Document ---
:1960 Author Organization [facility] t Address [address] [place] [address] [address]. [address] [place] [address] Care Team Providers Name Role Phone VINNY Mclaughlin [facility] Primary Care Physic kayla Unavailable Lisa HERZOG Attending Clinician Unavailable Rosenda MANAGER TECHNICAL SALES, J Attending Clinician Mamta ROMAN, B Attending Clinician Akinsipe WHCNP, C Attending Clinician AKINSIPE, C Attending Clinician Unavailable Sean MANAGER TECHNICAL, G Attending Clinician Doctor Unassigned, Name Attending Clinician Unavailable Garcia HIRSCH Attending Clinician Unavailable Mayela GRECO, S Attending Clinician Visit, Nurse Attending Clinician Unavailable Ananda NARAYAN, R Attending Clinician Johnathan COLUNGA Attending Clinician Unavailable Lisa HERZOG Admitting Clinician Unavailable JOANA Admitting Clinician Unavailable Payers Payer Name Policy Type Policy Number Effective Date Expiration Date [facility] MEDICARE PART A [id number] 2020 \\T\\ B 00:00:00 Advance Directives Directive Decision Effective Termination Comments Source Date Date Healthcare Agents on N/A [facility] FileNameRe[facility] [place] [facility] Agent Medical RelationshipCommunicationNorth [facility] Care [phone] (Mobile) Problems Condition Condition Condition Status Onset [...] nivers exam exam 3-14 ity of 00:00: [place] [facility] Contracept Contracept Disease Active U nivers roz roz 3-14 ity of management management 00:00: [place] [facility] Menopause Menopause Disease Active Uni vers 6-25 ity of 00:00: Medical [facility] Morbid Morbid Disease Active Univers obesity obesity 6-25 ity of 00:00: [place] [facility] Essential Essential Disease Active Uni vers hypertensi hypertensi 6-25 it y of on, benign on, benign 00:00: [place] [facility] Generalize Generalize Disease Active U nivers d anxiety d anxiety 6-25 ity of disorder disorder 00:00: [place] [facility] Depression Depression Disease Active U nivers 6-25 ity of 00:00: [place] [facility] Allergies, Adverse Reactions, Alerts Allergy [...] Quantity Comments Source Exposure to Not sure [facility] SARS-CoV-2 [place] [facility] (event) Branch History SDOH University o f Alcohol Frequency [facility] History SDOH University o f Alcohol Std [place] [facility] Drinks [facility] History SDOH University o f Alcohol Binge [facility] [place] Tobacco use and 2020-09-07 2020-09-07 Never used Universit y of exposure 00:00:00 00:00:00 [facility] Alcohol intake 2020-09-07 2020-09-07 Current drinker of Un iversity of 00:00:00 00:00:00 alcohol (finding) [facility] Alcohol Comment 2015-03-14 2015-03-14 occasionally Univers ity of 00:00:00 00:00:00 [facility] Sex Ass[birth year] At [birth year] Universit y of 00:00:00 00:00:00 [facility] Smoking Status Start Date Stop Date Source Never smoker [facility] Medications Ordered Filled Start Stop Current Ordering Indication Dosage Frequency Signature Comments Components Source Medication Medication Date Date Medication? Clinician (SIG) Name Name iopamidol 2020- No [id number] 120mL 120 mL, Univers (ISOVUE 05-15 Intravenou ity o f 300-500 mL) 07:05: 07:05 s, ONCE, 1 [place] injection 00 :00 dose, Mon Medic al 120 mL 05/15/21 at Branch 0215, Routine cloNIDine 2020- No .1mg 0.1 mg, Univ ers (CATAPRES) 05-15 Oral, ity of tablet 0.1 05:30: 05:46 ONCE, 1 [place] mg 00 :00 dose, [facility] 05/15/21 at Branch 0030, STAT morpHINE 2020-0 2020- No 4mg 4 mg, Slow Un rohit injection 4 05-15 IV Push, ity of mg 03:45: 03:17 ONCE, 1 [place] 00 :00 dose, [facility] 05/14/21 at Branch 2245, STAT hydrALAZINE 2019-09- No 50mg 50 mg, Uni vers (APRESOLINE 11-09 Oral, ity of ) tablet 50 00:00: 22:56 ONCE, 1 [place] mg 00 :[place] dose, Sat [facility] 09/07/20 Branch at 1800, Routine LORazepam 2019-09- No 1mg 1 mg, Univer s (ATIVAN) 11-09 Oral, ity of tablet 1 mg 00:00: 22:56 [place]CE[place] 1 [place] :[place] dose, Sat [facility] 09/07/20 Branch at 1800, LIN cloNIDine 2019-09- No .1mg 0.1 mg, Univ ers (CATAPRES) 10-28 Oral, ity of tablet 0.1 01:45: 01:08 ONCE, 1 [place] mg 00 :00 dose, Sat [facility] 08/26/20 at Branch 1945, STAT PAROXETINE 2019-09 [...] ity of mg tablet 22:23: every 6 [place] 39 (six) Medical hours. Branch hydralAZINE 2019-09 Yes 50mg Take 50 mg Univers 50 mg 2-04 by mouth 2 ity of tablet 22:23: (two) [place] 39 times Medical daily. Branch mirtazapine 2019-09 Yes 30mg Take 30 mg Univers 30 mg 2-04 by mouth ity of tablet 22:23: at [place] 39 bedtime. Medical Branch busPIRone 2019-09 Yes [...] by mouth ity of tablet 22:23: at [place] 39 bedtime. Medical Branch busPIRone 2019-09 Yes [...] by mouth ity of tablet 22:23: at [place] 39 bedtime. Medical Branch busPIRone 2019- Yes [...] ity of mg tablet 22:23: every 6 [place] 39 (six) Medical hours. Branch hydralAZINE 2019-09 Yes 50mg Take 50 mg Univers 50 mg 2-04 by mouth 2 ity of tablet 22:23: (two) [place] 39 times Medical daily. Branch mirtazapine 2019-09 Yes 30mg Take 30 mg Univers 30 mg 2-04 by mouth ity of tablet 22:23: at [place] [address] bedtime. Medical Branch busPIRone 2019- Yes 10mg [...] ity of mg tablet 22:23: every 6 [place] 39 (six) Medical hours. Branch hydralAZINE 2019- Yes 50mg Take 50 mg Univers 50 mg 2-04 by mouth 2 ity of tablet 22:23: (two) [place] 39 times Medical daily. Branch mirtazapine 2019-09 Yes 30mg Take 30 mg Univers 30 mg 2-04 by mouth ity of tablet 22:23: at [place] 39 bedtime. Medical Branch busPIRone 2019- Yes 10mg Take 10 mg Un roiht 10 mg 2-04 by mouth 2 ity [...] ity of mg tablet 22:23: every 6 [place] 39 (six) Medical hours. Branch hydralAZINE 2019- Yes 50mg Take 50 mg Univers 50 mg 2-04 by mouth 2 ity of tablet 22:23: (two) [place] 39 times Medical daily. Branch mirtazapine 2019-09 Yes 30mg Take 30 mg Univers 30 mg 2-04 by mouth ity of tablet 22:23: at [place] [address] bedtime. Medical Branch busPIRone 2019- Yes 10mg Take 10 mg Un rohit 10 mg 2-04 by mouth 2 ity of tablet 22:23: (two) [place] 39 times Medical daily. Branch PAROXETINE 2019- [...] ity of mg tablet 22:23: every 6 [place] 39 (six) Medical hours. Branch hydralAZINE 2019-09 Yes 50mg Take 50 mg Univers 50 mg 2-04 by mouth 2 ity of tablet 22:23: (two) [place] 39 times Medical daily. Branch mirtazapine 2019-09 Yes 30mg Take 30 mg Univers 30 mg 2-04 by mouth ity of tablet 22:23: at [place] [address] bedtime. Medical Branch busPIRone 2019- Yes 10mg [...] ity of mg tablet 22:23: every 6 [place] 39 (six) Medical hours. Branch hydralAZINE 2019- Yes 50mg Take 50 mg Univers 50 mg 2-04 by mouth 2 ity of tablet 22:23: (two) [place] 39 times Medical daily. Branch mirtazapine 2019-09 Yes 30mg Take 30 mg Univers 30 mg 2-04 by mouth ity of tablet 22:23: at [place] 39 bedtime. Medical Branch busPIRone 2019- Yes [...] ity of mg tablet 22:23: every 6 [place] 39 (six) Medical hours. Branch hydralAZINE 2019-09 Yes 50mg Take 50 mg Univers 50 mg 2-04 by mouth 2 ity of tablet 22:23: (two) [place] 39 times Medical daily. Branch mirtazapine 2019-09 Yes 30mg Take 30 mg Univers 30 mg 2-04 by mouth ity of tablet 22:23: at [place] [address] bedtime. Medical Branch busPIRone 2019- Yes 10mg [...] ity of mg tablet 22:23: every 6 [place] 39 (six) Medical hours. Branch hydralAZINE 2019- Yes 50mg Take 50 mg Univers 50 mg 2-04 by mouth 2 ity of tablet 22:23: (two) [place] 39 times Medical daily. Branch mirtazapine 2019- Yes 30mg Take 30 mg Univers 30 mg 2-04 by mouth ity of tablet 22:23: at [place] [address] bedtime. Medical Branch busPIRone 2020- Yes 10mg Take 10 mg Un rohit 10 mg 2-04 by mouth 2 ity of tablet 22:23: (two) [place] 39 times Medical daily. Branch PAROXETINE 2020- Yes 1 daily Univ ers HCL 20 MG 2-04 ity of ORAL TAB 16:23: [place] 39 Medical Branch metoprolol 2019- Yes 50mg Take 50 mg U nivers tartrate 2-04 by mouth 2 ity o f (LOPRESSOR) 16:23: (two) [place] 50 mg 39 times Medical tablet daily. Branch hydrOXYzine 2019- Yes 25mg Take 25 mg Univers (ATARAX) 25 2-04 by mouth ity of mg tablet 16:23: every 6 [place] 39 (six) Medical hours. Branch hydralAZINE 2019- Yes 50mg Take 50 mg Univers 50 mg 2-04 by mouth 2 ity of tablet 16:23: (two) [place] 39 times Medical daily. Branch mirtazapine 2019-09 Yes 30mg Take 30 mg Univers 30 mg 2-04 by mouth ity of tablet 16:23: at [place] [address] bedtime. Medical Branch busPIRone 2019- Yes 10mg Take 10 mg Un rohit 10 mg 2-04 by mouth 2 ity of tablet 16:23: (two) [place] 39 times Medical daily. Branch clotrimazol 2019- Yes [id number] 1{appli Insert 1 Univers e 1 % 2-04 cator} Applicator ity of vaginal 00:00: into [place] cream 00 vagina at Medical bedtime. Branch clotrimazol 2019- Yes [id number] 1{appli Insert 1 Univers e 1 % 2-04 cator} Applicator ity of vaginal 00:00: into [place] cream 00 vagina at Medical bedtime. Branch clotrimazol 2019- Yes [id number] 1{appli Insert 1 Univers e 1 % 2-04 cator} Applicator ity of vaginal 00:00: into [place] cream 00 vagina at Medical bedtime. [place] clotrimazol 2019-09 Yes [id number] 1{appli Insert 1 Univers e 1 % 2-04 cator} Applicator ity of vaginal 00:00: into [place] cream 00 vagina at Medical bedtime. [place] clotrimazol 2019-09 Yes [id number] 1{appli Insert 1 Univers e 1 % 2-04 cator} Applicator ity of vaginal 00:00: into [place] cream 00 vagina at Medical bedtime. [place] clotrimazol 2019-09 Yes [id number] 1{appli Insert 1 Univers e 1 % 2-04 cator} Applicator ity of vaginal 00:00: into [place] cream 00 vagina at Medical bedtime. [place] clotrimazol 2019-09 Yes [id number] 1{appli Insert 1 Univers e 1 % 2-04 cator} Applicator ity of vaginal 00:00: into [place] cream 00 vagina at Medical bedtime. [place] clotrimazol 2019-09 Yes [id number] 1{appli Insert 1 Univers e 1 % 2-04 cator} Applicator ity of vaginal 00:00: into [place] cream 00 vagina at Medical bedtime. [place] clotrimazol 2019-09 Yes [id number] 1{appli Insert 1 Univers e 1 % 2-04 cator} Applicator ity of vaginal 00:00: into [place] cream 00 vagina at Medical bedtime. [place] clotrimazol 2019-09 Yes [id number] 1{appli Insert 1 Univers e 1 % 2-04 cator} Applicator ity of vaginal 00:00: into [place] cream 00 vagina at Medical bedtime. [place] clotrimazol 2019-09 Yes [id number] 1{appli Insert 1 Univers e 1 % 2-04 cator} Applicator ity of vaginal 00:00: into [place] cream 00 vagina at Medical bedtime. [place] clotrimazol 2019-09 Yes [id number] 1{appli Insert 1 Univers e 1 % 2-04 cator} Applicator ity of vaginal 00:00: into [place] cream 00 vagina at Medical bedtime. [place] clotrimazol 2019-09 Yes [id number] 1{appli Insert 1 Univers e 1 % 2-04 cator} Applicator ity of vaginal 00:00: into [place] cream 00 vagina at Medical bedtime. Branch clotrimazol 2020-1 Yes [id number] 1{appli Insert 1 Univers e 1 % 2-04 cator} Applicator ity of vaginal 00:00: into [place] cream 00 vagina at Medical bedtime. Branch clotrimazol 2019-1 Yes [id number] 1{appli Insert 1 Univers e 1 % 2-04 cator} Applicator ity of vaginal 00:00: into [place] cream 00 vagina at Medical bedtime. Branch clotrimazol 2019- Yes [id number] 1{appli Insert 1 Univers e 1 % 2-04 cator} Applicator ity of vaginal 00:00: into [place] cream 00 vagina at Medical bedtime. Branch Miscellaneo 2019-0 Yes [id number] QHS X U nivers Medical 8-21 7days ity of Supply Misc 00:00: [place] 00 Medical Branch Miscellaneo 2019-0 Yes [id number] QHS X U nivers [facility] 8-21 7days ity of Supply Misc 00:00: [place] 00 Medical Branch Miscellaneo 2019-0 Yes [id number] QHS X U nivers Medical 8-21 7days ity of Supply Misc 00:00: [place] 00 Medical Branch Miscellaneo 2019-0 Yes [id number] QHS X U nivers Medical 8-21 7days ity of Supply Misc 00:00: [place] 00 Medical Branch Miscellaneo 2019-0 Yes [id number] QHS X U nivers Medical 8-21 7days ity of Supply Misc 00:00: [place] 00 Medical Branch Miscellaneo 2019-0 Yes [id number] QHS X U nivers Medical 8-21 7days ity of Supply Misc 00:00: [place] 00 Medical Branch Miscellaneo 2019-0 Yes [id number] QHS X U nivers Medical 8-21 7days ity of Supply Misc 00:00: [place] 00 Medical Branch Miscellaneo 2019-0 Yes [id number] QHS X U nivers Medical 8-21 7days ity of Supply Misc 00:00: [place] 00 Medical Branch Miscellaneo 2019-0 Yes [id number] QHS X U nivers [facility] 8-21 7days ity of Supply Misc 00:00: [place] 00 Medical Branch Miscellaneo 2019-0 Yes [id number] QHS X U nivers [facility] Medical 8-21 7days ity of Supply Misc 00:00: [place] 00 Medical Branch Miscellaneo 2019-0 Yes [id number] QHS X U nivers us Medical 8-21 7days ity of Supply Misc 00:00: [place] 00 Medical Branch Miscellaneo 2019-0 Yes [id number] QHS X U nivers us Medical 8-21 7days ity of Supply Misc 00:00: [place] 00 Medical Branch Miscellaneo 2019-0 Yes [id number] QHS X U nivers us Medical 8-21 7days ity of Supply Misc 00:00: [place] 00 Medical Branch Miscellaneo 2019-0 Yes [id number] QHS X U nivers us Medical 8-21 7days ity of Supply Misc 00:00: [place] 00 Medical Branch Miscellaneo 2019-0 Yes [id number] QHS X U nivers us Medical 8-21 7days ity of Supply Misc 00:00: [place] 00 Medical Branch Miscellaneo 2019-0 Yes [id number] QHS X U nivers us Medical 8-21 7days ity of Supply Misc 00:00: [place] 00 Medical Branch Miscellaneo 2019-0 Yes [id number] QHS X U nivers us Medical 8-21 7days ity of Supply Misc 00:00: [place] 00 Medical Branch Miscellaneo 2019-0 Yes [id number] QHS X U nivers us Medical 8-21 7days ity of Supply Misc 00:00: [place] 00 Medical Branch Miscellaneo 2019-0 Yes [id number] QHS X U nivers us Medical 8-21 7days ity of Supply Misc 00:00: [place] 00 Medical Branch Miscellaneo 2019-0 Yes [id number] QHS X U nivers us Medical 8-21 7days ity of Supply Misc 00:00: [place] 00 Medical Branch Miscellaneo 2019-0 Yes [id number] QHS X U nivers us Medical 8-21 7days ity of Supply Misc 00:00: [place] 00 Medical Branch Miscellaneo 2019-0 Yes [id number] QHS X U nivers us Medical 8-21 7days ity of Supply Misc 00:00: [place] 00 Medical Branch Miscellaneo 2019-0 Yes [id number] QHS X U nivers us Medical 8-21 7days ity of Supply Misc 00:00: [place] 00 Medical Branch Miscellaneo 2019-0 Yes [id number] QHS X U nivers us Medical 8-21 7days ity of Supply Misc 00:00: [place] 00 Medical Branch busPIRone 2018- Yes 10mg Take 10 mg Un rohit 10 mg 3-14 by mouth 2 ity of tablet 21:09: (two) [place] 48 times Medical daily. Branch busPIRone Yes 10mg Take 10 mg Un rohit 10 mg 3-14 by mouth 2 ity of tablet 21:09: (two) [place] 48 times Medical daily. Branch busPIRone Yes 10mg Take 10 mg Un rohit 10 mg 3-14 by mouth 2 ity of tablet 21:09: (two) [place] 48 times Medical daily. Branch busPIRone Yes 10mg Take 10 mg Un rohit 10 mg 3-14 by mouth 2 ity of tablet 21:09: (two) [place] 48 times Medical daily. Branch busPIRone Yes 10mg Take 10 mg Un rohit 10 mg 3-14 by mouth 2 ity of tablet 21:09: (two) [place] 48 times Medical daily. Branch busPIRone Yes 10mg Take 10 mg Un rohit 10 mg 3-14 by mouth 2 ity of tablet 21:09: (two) [place] 48 times Medical daily. Branch busPIRone Yes 10mg Take 10 mg Un rohit 10 mg 3-14 by mouth 2 ity of tablet 21:09: (two) [place] 48 times Medical daily. Branch busPIRone Yes 10mg Take 10 mg Un rohit 10 mg 3-14 by mouth 2 ity of tablet 21:09: (two) [place] 48 times Medical daily. Branch PAROXETINE Yes [...] ity of mg tablet 21:09: every 6 [place] [address] (six) Medical hours. Branch hydralAZINE 2019-0 Yes 50mg Take 50 mg Univers 50 mg 3-14 by mouth 2 ity of tablet 21:09: (two) [place] 31 times Medical daily. Branch mirtazapine 2019-0 Yes 30mg Take 30 mg Univers 30 mg 3-14 by mouth ity of tablet 21:09: at [place] [address] bedtime. Medical Branch PAROXETINE 2019-0 Yes 1 daily Univ ers HCL 20 MG 3-14 ity of ORAL TAB 21:09: [place] [address] Medical Branch metoprolol 2019-0 Yes 50mg Take 50 mg U nivers tartrate 3-14 by mouth 2 ity o f (LOPRESSOR) 21:09: (two) [place] 50 mg 31 times Medical tablet daily. Branch hydrOXYzine 2019-0 Yes 25mg Take 25 mg Univers (ATARAX) 25 3-14 by mouth ity of mg tablet 21:09: every 6 [place] [address] (six) Medical hours. Branch hydralAZINE 2019-0 Yes 50mg Take 50 mg Univers 50 mg 3-14 by mouth 2 ity of tablet 21:09: (two) [place] 31 times Medical daily. Branch mirtazapine 2019-0 Yes 30mg Take 30 mg Univers 30 mg 3-14 by mouth ity of tablet 21:09: at [place] [address] bedtime. Medical Branch PAROXETINE 2019-0 Yes 1 daily Univ ers HCL 20 MG 3-14 ity of ORAL TAB 21:09: [place] [address] Medical Branch metoprolol 2019-0 Yes 50mg Take 50 mg U nivers tartrate 3-14 by mouth 2 ity o f (LOPRESSOR) 21:09: (two) [place] 50 mg 31 times Medical tablet daily. Branch hydrOXYzine 2019-0 Yes 25mg Take 25 mg Univers (ATARAX) 25 3-14 by mouth ity of mg tablet 21:09: every 6 [place] [address] (six) Medical hours. Branch hydralAZINE 2019-0 Yes 50mg Take 50 mg Univers 50 mg 3-14 by mouth 2 ity of tablet 21:09: (two) [place] 31 times Medical daily. Branch mirtazapine 2019-0 Yes 30mg Take 30 mg Univers 30 mg 3-14 by mouth ity of tablet 21:09: at [place] [address] bedtime. Medical Branch PAROXETINE 2019-0 Yes 1 daily Univ ers HCL 20 MG 3-14 ity of ORAL TAB 21:09: [place] [address] Medical Branch metoprolol 2019-0 Yes 50mg Take 50 mg U nivers tartrate 3-14 by mouth 2 ity o f (LOPRESSOR) 21:09: (two) [place] 50 mg 31 times Medical tablet daily. Branch hydrOXYzine 2018-0 Yes 25mg Take 25 mg Univers (ATARAX) 25 3-14 by mouth ity of mg tablet 21:09: every 6 [place] [address] (six) Medical hours. Branch hydralAZINE 2018-0 Yes 50mg Take 50 mg Univers 50 mg 3-14 by mouth 2 ity of tablet 21:09: (two) [place] 31 times Medical daily. Branch mirtazapine 0 Yes 30mg Take 30 mg Univers 30 mg 3-14 by mouth ity of tablet 21:09: at [place] [address] bedtime. Medical Branch PAROXETINE 2018-0 Yes 1 daily Univ ers HCL 20 MG 3-14 ity of ORAL TAB 21:09: [place] [address] Medical Branch metoprolol 0 Yes 50mg Take 50 mg U nivers tartrate 3-14 by mouth 2 ity o f (LOPRESSOR) 21:09: (two) [place] 50 mg 31 times Medical tablet daily. Branch hydrOXYzine 0 Yes 25mg Take 25 mg Univers (ATARAX) 25 3-14 by mouth ity of mg tablet 21:09: every 6 [place] [address] (six) Medical hours. Branch hydralAZINE 2018-0 Yes 50mg Take 50 mg Univers 50 mg 3-14 by mouth 2 ity of tablet 21:09: (two) [place] 31 times Medical daily. Branch mirtazapine 2019-0 Yes 30mg Take 30 mg Univers 30 mg 3-14 by mouth ity of tablet 21:09: at [place] [address] bedtime. Medical Branch PAROXETINE 2019-0 Yes 1 daily Univ ers HCL 20 MG 3-14 ity of ORAL TAB 21:09: [place] [address] Medical Branch metoprolol 2019-0 Yes 50mg Take 50 mg U nivers tartrate 3-14 by mouth 2 ity o f (LOPRESSOR) 21:09: (two) [place] 50 mg 31 times Medical tablet daily. Branch hydrOXYzine 2018-0 Yes 25mg Take 25 mg Univers (ATARAX) 25 3-14 by mouth ity of mg tablet 21:09: every 6 [place] 31 (six) Medical hours. Branch hydralAZINE 2019-0 Yes 50mg Take 50 mg Univers 50 mg 3-14 by mouth 2 ity of tablet 21:09: (two) [place] 31 times Medical daily. Branch mirtazapine 2019-0 Yes 30mg Take 30 mg Univers 30 mg 3-14 by mouth ity of tablet 21:09: at [place] [address] bedtime. Medical Branch PAROXETINE 2019-0 Yes 1 daily Univ ers HCL 20 MG 3-14 ity of ORAL TAB 21:09: [place] [address] Medical Branch metoprolol 2019-0 Yes 50mg Take 50 mg U nivers tartrate 3-14 by mouth 2 ity o f (LOPRESSOR) 21:09: (two) [place] 50 mg 31 times Medical tablet daily. Branch hydrOXYzine 2019-0 Yes 25mg Take 25 mg Univers (ATARAX) 25 3-14 by mouth ity of mg tablet 21:09: every 6 [place] [address] (six) Medical hours. Branch hydralAZINE 2019-0 Yes 50mg Take 50 mg Univers 50 mg 3-14 by mouth 2 ity of tablet 21:09: (two) [place] 31 times Medical daily. Branch mirtazapine 2019-0 Yes 30mg Take 30 mg Univers 30 mg 3-14 by mouth ity of tablet 21:09: at [place] [address] bedtime. Medical Branch PAROXETINE 2019-0 Yes 1 daily Univ ers HCL 20 MG 3-14 ity of ORAL TAB 21:09: [place] [address] Medical Branch metoprolol 2019-0 Yes 50mg Take 50 mg U nivers tartrate 3-14 by mouth 2 ity o f (LOPRESSOR) 21:09: (two) [place] 50 mg 31 times Medical tablet daily. Branch hydrOXYzine 2019-0 Yes 25mg Take 25 mg Univers (ATARAX) 25 3-14 by mouth ity of mg tablet 21:09: every 6 [place] 31 (six) Medical hours. Branch hydralAZINE 2019-0 Yes 50mg Take 50 mg Univers 50 mg 3-14 by mouth 2 ity of tablet 21:09: (two) [place] 31 times Medical daily. Branch mirtazapine 2019-0 Yes 30mg Take 30 mg Univers 30 mg 3-14 by mouth ity of tablet 21:09: at [place] 31 bedtime. Medical Branch cloniDINE 2018-0 Yes .1mg Take 1 Univer s 0.1 mg 2-22 tablet by ity of tablet 00:00: mouth at [place] 00 bedtime as Medical needed Branch (SBP>180 or DBP>120). cloniDINE 2018-0 Yes .1mg Take 1 Univer s 0.1 mg 2-22 tablet by ity of tablet 00:00: mouth at [place] 00 bedtime as Medical needed Branch (SBP>180 or DBP>120). cloniDINE 2018-0 Yes .1mg Take 1 Univer s 0.1 mg 2-22 tablet by ity of tablet 00:00: mouth at [place] 00 bedtime as Medical needed Branch (SBP>180 or DBP>120). cloniDINE 2018-0 Yes .1mg Take 1 Univer s 0.1 mg 2-22 tablet by ity of tablet 00:00: mouth at [place] 00 bedtime as Medical needed Branch (SBP>180 or DBP>120). cloniDINE 2018-0 Yes .1mg Take 1 Univer s 0.1 mg 2-22 tablet by ity of tablet 00:00: mouth at [place] 00 bedtime as Medical needed Branch (SBP>180 or DBP>120). cloniDINE 2018-0 Yes .1mg Take 1 Univer s 0.1 mg 2-22 tablet by ity of tablet 00:00: mouth at [place] 00 bedtime as Medical needed Branch (SBP>180 or DBP>120). cloniDINE 2018-0 Yes .1mg Take 1 Univer s 0.1 mg 2-22 tablet by ity of tablet 00:00: mouth at [place] 00 bedtime as Medical needed Branch (SBP>180 or DBP>120). cloniDINE 2018-0 Yes .1mg Take 1 Univer s 0.1 mg 2-22 tablet by ity of tablet 00:00: mouth at [place] 00 bedtime as Medical needed Branch (SBP>180 or DBP>120). cloniDINE 2018-0 Yes .1mg Take 1 Univer s 0.1 mg 2-22 tablet by ity of tablet 00:00: mouth at [place] 00 bedtime as Medical needed Branch (SBP>180 or DBP>120). cloniDINE 2018-0 Yes .1mg Take 1 Univer s 0.1 mg 2-22 tablet by ity of tablet 00:00: mouth at [place] 00 bedtime as Medical needed Branch (SBP>180 or DBP>120). cloniDINE 2018-0 Yes .1mg Take 1 Univer s 0.1 mg 2-22 tablet by ity of tablet 00:00: mouth at [place] 00 bedtime as Medical needed Branch (SBP>180 or DBP>120). cloniDINE 2018-0 Yes .1mg Take 1 Univer s 0.1 mg 2-22 tablet by ity of tablet 00:00: mouth at [place] 00 bedtime as Medical needed Branch (SBP>180 or DBP>120). cloniDINE 2018-0 Yes .1mg Take 1 Univer s 0.1 mg 2-22 tablet by ity of tablet 00:00: mouth at [place] 00 bedtime as Medical needed Branch (SBP>180 or DBP>120). cloniDINE 2018-0 Yes .1mg Take 1 Univer s 0.1 mg 2-22 tablet by ity of tablet 00:00: mouth at [place] 00 bedtime as Medical needed Branch (SBP>180 or DBP>120). cloniDINE 2018-0 Yes .1mg Take 1 Univer s 0.1 mg 2-22 tablet by ity of tablet 00:00: mouth at [place] 00 bedtime as Medical needed Branch (SBP>180 or DBP>120). cloniDINE 2018-0 Yes .1mg Take 1 Univer s 0.1 mg 2-22 tablet by ity of tablet 00:00: mouth at [place] 00 bedtime as Medical needed Branch (SBP>180 or DBP>120). cloniDINE 2018-0 Yes .1mg Take 1 Univer s 0.1 mg 2-22 tablet by ity of tablet 00:00: mouth at [place] 00 bedtime as Medical needed Branch (SBP>180 or DBP>120). cloniDINE 2018-0 Yes .1mg Take 1 Univer s 0.1 mg 2-22 tablet by ity of tablet 00:00: mouth at [place] 00 bedtime as Medical needed Branch (SBP>180 or DBP>120). cloniDINE 2018-0 Yes .1mg Take 1 Univer s 0.1 mg 2-22 tablet by ity of tablet 00:00: mouth at [place] 00 bedtime as Medical needed Branch (SBP>180 or DBP>120). cloniDINE 2018-0 Yes .1mg Take 1 Univer s 0.1 mg 2-22 tablet by ity of tablet 00:00: mouth at [place] 00 bedtime as Medical needed Branch (SBP>180 or DBP>120). cloniDINE 2018-0 Yes .1mg Take 1 Univer s 0.1 mg 2-22 tablet by ity of tablet 00:00: mouth at [place] 00 bedtime as Medical needed Branch (SBP>180 or DBP>120). cloniDINE 2018-0 Yes .1mg Take 1 Univer s 0.1 mg 2-22 tablet by ity of tablet 00:00: mouth at [place] 00 bedtime as Medical needed Branch (SBP>180 or DBP>120). cloniDINE 2018-0 Yes .1mg Take 1 Univer s 0.1 mg 2-22 tablet by ity of tablet 00:00: mouth at [place] 00 bedtime as Medical needed Branch (SBP>180 or DBP>120). cloniDINE 2018-0 Yes .1mg Take 1 Univer s 0.1 mg 2-22 tablet by ity of tablet 00:00: mouth at [place] 00 bedtime as Medical needed Branch (SBP>180 or DBP>120). cloniDINE 2018-0 Yes .1mg Take 1 Univer s 0.1 mg 2-22 tablet by ity of tablet 00:00: mouth at [place] 00 bedtime as Medical needed Branch (SBP>180 or DBP>120). Immunizations Ordered Filled Immunization Date Status Comments [facility] e Immunization Name Name Influenza Virus 2020-08-26 Completed Universit y of Vaccine Quad .5 mL 00:00:00 [place] [facility] IM 6+ MO Branch Influenza Virus 2020-08-26 Completed Universit y of Vaccine [place] .5 mL 00:00:00 [place] [facility] IM 6+ MO Branch Influenza Virus 2020-08-26 Completed Universit y of Vaccine [place] .5 mL 00:00:00 [place] [facility] IM 6+ MO Branch Influenza Virus 2020-08-26 Completed Universit y of Vaccine [place] .5 mL 00:00:00 [place] [facility] IM 6+ MO Branch Influenza Virus 2020-08-26 Completed Universit y of Vaccine [place] .5 mL 00:00:00 [place] [facility] IM 6+ MO Branch Influenza Virus 2020-08-26 Completed Universit y of Vaccine Quad .5 mL 00:00:00 [place] [facility] IM 6+ MO Branch Influenza Virus 2020-08-26 Completed Universit y of Vaccine [place] .5 mL 00:00:00 [place] [facility] IM 6+ MO Branch Influenza Virus 2020-08-26 Completed Universit y of Vaccine [place] .5 mL 00:00:00 [place] [facility] IM 6+ MO Branch Influenza Virus [...] y of Vaccine Quad .5 mL 00:00:00 [place] [facility] IM 6+ MO Branch Influenza Virus 2020-08-26 Completed Universit y of Vaccine [place] .5 mL 00:00:00 [place] [facility] IM 6+ MO Branch Influenza Virus 2020-08-26 Completed Universit y of Vaccine [place] .5 mL 00:00:00 [place] [facility] IM 6+ MO Branch Influenza Virus 2020-08-26 Completed Universit y of Vaccine [place] .5 mL 00:00:00 [facility] IM 6+ MO Branch Vital Signs Vital Name Observation Time Observation Value Comments Source Systolic blood 2021-11-25 01:45:00 151 mm[Hg] Univer sity of pressure [facility] Diastolic blood 2021-11-25 01:45:00 78 mm[Hg] Unive rsity of pressure [facility] Heart rate 2021-11-25 01:45:00 88 /[facility] Respiratory rate 2021-11-25 01:45:00 18 /min [facility] Oxygen saturation in 2021-11-25 01:45:00 99 /min [facility] Arterial blood by [facility] Pulse oximetry Branch Body temperature 2021-11-25 00:45:48 36.94 Mariia Univ ersity of [facility] Systolic blood 2021-05-15 08:20:00 144 mm[Hg] Univer sity of pressure [facility] Diastolic blood 2021-05-15 08:20:00 71 mm[Hg] Unive rsity of pressure [facility] Heart rate 2021-05-15 08:20:00 61 /min Universi ty [facility] [place] [facility] Body temperature 2021-05-15 08:20:00 36.89 Mariia Univ ersity of [place] [facility] Respiratory rate 2021-05-15 08:20:00 16 /min Univ ersity of [place] [facility] Oxygen saturation in 2021-05-15 08:20:00 99 /min University of Arterial blood by [place] [facility] Pulse oximetry Branch Systolic blood 2020-09-08 01:35:00 148 mm[Hg] Univer sity of pressure [place] [facility] Diastolic blood 2020-09-08 01:35:00 75 mm[Hg] Unive rsity of pressure [place] [facility] Heart rate 2020-09-08 01:35:00 81 /min Universi ty [facility] [place] [facility] Respiratory rate 2020-09-08 01:35:00 18 /min Univ ersity of [place] [facility] Oxygen saturation in 2020-09-08 01:35:00 97 /min University of Arterial blood by [facility] tacho Pulse oximetry Branch Body temperature 2020-09-07 22:17:00 36.67 Mariia Univ ersity of [place] [facility] Body weight 2020-09-07 22:17:00 117.935 kg Universi ty [facility] [place] [facility] BMI 2020-09-07 22:17:00 43.27 kg/m2 Universi ty [facility] [place] [facility] Systolic blood 2020-09-08 01:35:00 148 mm[Hg] Univer sity of pressure [place] [facility] Diastolic blood 2020-09-08 01:35:00 75 mm[Hg] Unive rsity of pressure [place] [facility] Heart rate 2020-09-08 01:35:00 81 /min Universi ty [facility] [place] [facility] Respiratory rate 2020-09-08 01:35:00 18 /min Univ ersity of [place] [facility] Oxygen saturation in 2020-09-08 01:35:00 97 /min University of Arterial blood by [facility] tacho Pulse oximetry Branch Body temperature 2020-09-07 22:17:00 36.67 Mariia Univ ersity of [place] [facility] Body weight 2020-09-07 22:17:00 117.935 kg Universi ty [facility] [place] [facility] BMI 2020-09-07 22:17:00 43.27 kg/m2 Universi ty [facility] [place] [facility] Systolic blood 2020-09-07 22:01:00 197 mm[Hg] Univer sity of pressure [place] [facility] Diastolic blood 2020-09-07 22:01:00 94 mm[Hg] Unive rsity of pressure [place] [facility] Heart rate 2020-09-07 22:01:00 89 /min Universi ty [facility] [place] [facility] Body temperature 2020-09-07 20:44:00 36.33 Mariia Univ ersity [facility] [place] [facility] Respiratory rate 2020-09-07 20:44:00 16 /min Univ ersity of [place] [facility] Body height 2020-09-07 20:44:00 165.1 cm Universi ty [facility] [place] [facility] Body weight 2020-09-07 20:44:00 118.207 kg Universi ty [facility] [place] [facility] BMI 2020-09-07 20:44:00 43.37 kg/m2 Universi ty [facility] [place] [facility] Systolic blood 2020-09-07 22:01:00 197 mm[Hg] Univer sity of pressure [place] [facility] Diastolic blood 2020-09-07 22:01:00 94 mm[Hg] Unive rsity of pressure [place] [facility] Heart rate 2020-09-07 22:01:00 89 /min Universi ty [facility] [place] [facility] Body temperature 2020-09-07 20:44:00 36.33 Mariia Univ ersity of [place] [facility] Respiratory rate 2020-09-07 20:44:00 16 /min Univ ersity of [place] [facility] Body height 2020-09-07 20:44:00 165.1 cm Universi ty [facility] [place] [facility] Body weight 2020-09-07 20:44:00 118.207 kg Universi ty [facility] [place] [facility] BMI 2020-09-07 20:44:00 43.37 kg/m2 [facility]i ty [facility] [place] [facility] Systolic blood 2020-08-27 02:06:53 149 mm[Hg] Univer sity of pressure [place] [facility] Diastolic blood 2020-08-27 02:06:53 79 mm[Hg] Unive rsity of pressure [place] [facility] Heart rate 2020-08-27 02:06:53 67 /min [facility]i ty [facility] [place] [facility] Body temperature 2020-08-27 02:06:53 36.5 Mariia Univ ersity of [place] [facility] Respiratory rate 2020-08-27 02:06:53 15 /min Univ ersity of [facility] Oxygen saturation in 2020-08-27 02:06:53 98 /min University of Arterial blood by [facility] Pulse oximetry Branch Body weight 2020-08-26 23:36:00 116.574 kg Universi ty of [facility] BMI 2020-08-26 23:36:00 42.77 kg/m2 Universi ty of [facility] Systolic blood 2020-08-26 22:10:00 177 mm[Hg] Univer sity of pressure [facility] Diastolic blood 2020-08-26 22:10:00 88 mm[Hg] Unive rsity of pressure [facility] Heart rate 2020-08-26 22:08:00 72 /min Universi ty of [facility] Body temperature 2020-08-26 22:08:00 36.39 Mariia Univ ersity of [facility] Respiratory rate 2020-08-26 22:08:00 16 /min Univ ersity of [facility] Body height 2020-08-26 22:08:00 165.1 cm Universi ty of [facility] Body weight 2020-08-26 22:08:00 116.745 kg Universi ty of [facility] BMI 2020-08-26 22:08:00 42.83 kg/m2 Universi ty of [facility] Systolic blood 2019-05-13 21:11:00 142 mm[Hg] Univer sity of pressure [facility] Diastolic blood 2019-05-13 21:11:00 78 mm[Hg] Unive rsity of pressure [facility] Systolic blood 2019-05-13 20:20:00 173 mm[Hg] Univer sity of pressure [facility] Diastolic blood 2019-05-13 20:20:00 88 mm[Hg] Unive rsity of pressure [facility] Heart rate 2019-05-13 20:15:00 75 /min Universi ty of [facility] Body temperature 2019-05-13 20:15:00 36.28 Mariia Univ ersity of [facility] Body height 2019-05-13 20:15:00 165.1 cm Universi ty of [facility] Body weight 2019-05-13 20:15:00 116.234 kg Universi ty of [facility] BMI 2019-05-13 20:15:00 42.64 kg/m2 Universi ty of [facility] Procedures Procedure Date / Time Performing Clinician Source Performed URINALYSIS 2021-11-25 02:24:00 Pat Herzog [facility] TROPONIN I 2021-11-25 01:53:00 Pat Herzog [facility] COMP. METABOLIC PANEL 2021-11-25 01:53:00 Pat Herzog [facility] ([id number]) [facility] CBC WITH DIFF 2021-11-25 01:53:00 Pat Herzog [facility] D-DIMER 2021-11-25 01:53:00 Pat Herzog [facility] N-TERMINAL PRO-BNP 2021-11-25 01:53:00 [facility] CHEST 2 VW 2021-11-25 01:27:45 Pat Herzog [facility] CONSENT/REFUSAL FOR 2021-11-25 00:42:46 Doctor Unassigned, [facility] DIAGNOSIS AND TREATMENT [facility] [facility] CT ABDOMEN PELVIS W 2021-05-15 07:09:39 Suresh Oleary [facility] CONTRAST [facility] Branch COVID-19 (ID NOW RAPID 2021-05-15 03:17:00 Suresh Oleary [facility] TESTING) Medical Branch PHOSPHORUS 2021-05-15 03:16:00 MamtaSuresh marina [facility] LIPASE 2021-05-15 03:16:00 Mamta, [facility] MAGNESIUM 2021-05-15 03:16:00 Mamta, [facility] TROPONIN I 2021-05-15 03:16:00 Suresh Oleary [facility] COMP. METABOLIC PANEL 2021-05-15 03:16:00 Suresh Oleary [facility] ([id number]) Medical Branch CBC WITH DIFF 2021-05-15 03:16:00 MamtaSuresh marina [facility] D-DIMER 2021-05-15 03:16:[address] [facility] URINALYSIS 2021-05-15 03:16:00 Mamta, [facility] N-TERMINAL PRO-BNP 2021-05-15 03:16:00 Suresh Oleary [facility] XR CHEST 2 VW 2021-05-15 02:55:22 Suresh Oleary [facility] CONSENT/REFUSAL FOR 2021-05-15 02:26:49 Doctor Unasstrevor, [facility] DIAGNOSIS AND TREATMENT [place] [facility] CONSENT/REFUSAL FOR 2020-09-07 22:14:49 Doctor Aliyasstrevor [facility] DIAGNOSIS AND TREATMENT [place] [facility] ASSIGNMENT OF BENEFITS 2020-09-07 20:23:20 [facility]R CHEST 1 VW 2020-08-27 00:41:33 Carmenza Mckinley [facility] TROPONIN I 2020-08-27 00:34:00 Carmenza Mckinley [facility] COMP. METABOLIC PANEL 2020-08-27 00:34:00 Carmenza Mckinley [facility] ([id number]) Medical [place] CBC WITH DIFF 2020-08-27 00:34:00 Carmenza Mckinley [facility] PROTHROMBIN TIME / INR 2020-08-27 00:34:00 Carmenza Mckinley [facility] ACTIVATED PARTIAL THRMPLAS 2020-08-27 00:34:00 [facility] 2020-08-27 00:34:00 Carmenza Mckinley [facility] NOTICE OF PRIVACY 2020-08-26 23:26:21 Doctor Cornelius, [facility] PRACTICES [place] [facility] [place] CONSENT/REFUSAL FOR 2020-08-26 23:25:28 Doctor Cornelius [facility] DIAGNOSIS AND TREATMENT [place] [facility] [place] URINE CULTURE 2020-08-26 22:59:00 Key Richardson [facility] FLU VACC ([id number]), 6+ 2020-08-26 22:48:43 Key Richardson [facility] MONTHS, IM, QUAD Medical Branch POCT URINALYSIS W/O 2020-08-26 22:15:00 Key Richardson [facility] SPECIFIC GRAVITY [facility] POCT URINALYSIS 2019-05-13 20:43:00 Devika Hirsch [facility] NO SHOW OR MISSED 2019-05-13 20:00:36 Doctor Unassigned, Univers [facility] APPOINTMENT POLICY [place] [facility] ACKNOWLEDGEMENT Encounters Start End Encounter Admission Attending Care Care Encounter Source Date/Time Date/Time Type Type Clinicians Facility Department ID 2021-07-24 Emergency [facility] [id number] Univers 17:15:12 ity of [facility] 2021-07-22 Emergency [facility] [id number] Univers 11:44:33 ity of [facility] 2021-07-22 Emergency [facility] [id number] Univers 09:23:58 ity of [facility] 2021-11-24 2021-11-24 Emergency X CACACE, [facility] ERT [id number] Univers 18:45:00 21:21:00 PAT ity [facility] 2021-11-24 2021-11-24 Emergency Cacace, [place] [id number] Univers 18:45:00 21:21:00 Pat Gonzalez CENTER [id number] [place] [id number] [address] 2021-05-14 2021-05-15 Emergency Mamta, [place] [id number] Univers 21:27:00 03:51:00 Suresh Wood CENTER [id number] [place] [id number] [address] 2021-01-23 2021-01-23 [facility] [id number] Univers 13:39:55 23:59:00 Encounter Key C SPECIALTY [id number] ity of C[place] AT [id number] Or romeo RUGGIERO [address] [place] [address] 2021-01-23 2021-01-23 [facility] [id number] 13:39:55 23:59:00 Encounter Key C SPECIALTY [id number] CARE 4.2.7.2.686 CENTER AT [id number] MONIK [address] [place] [address] 2021-01-23 2021-01-23 Outpatient R [facility] [id number] Univers 09:15:00 09:15:00 KEY [id number] ity o f [facility] 2021-01-23 2021-01-23 Outpatient R JENNYPE, [facility] [id number] Univers 00:00:00 00:00:00 KEY ity o f [facility] 2021-01-23 2021-01-23 [facility] [id number] Univers 00:00:00 00:00:00 Key C DENTAL CERAMIST [id number] ity of REGIONAL 4.2.7.2.686 [place] as MATERNAL [id number] [facility] ical & CHILD [address] [place] [address] 2021-01-23 2021-01-23 [facility] [id number] 00:00:00 00:00:00 Key C DENTAL CERAMIST [id number] REGIONAL 4.2.7.2.686 MATERNAL [id number] & [address] 2021-01-13 2021-01-13 Outpatient R AKINSIPE, [facility] [id number] Univers 13:15:00 13:15:[id number] [facility] 2021-01-13 2021-01-13 Outpatient R ERIKSIPE, [facility] [id number] Univers 13:15:00 13:15:[address] [facility] 2021-01-02 2021-01-02 Telephone [facility] [id number] [facility] 00:00:00 00:00:00 Key C DENTAL CERAMIST [id number] ity of REGIONAL [id number] [place] as MATERNAL [id number] [facility] & CHILD [address] [place] [address] 2021-01-02 2021-01-02 Telephone [facility] [id number] 00:00:00 00:00:00 Key C DENTAL CERAMIST [id number] REGIONAL 4.2.7.2.686 MATERNAL [id number] & CHILD [address] [place] [address] 2020-12-07 2020-12-07 Outpatient R AKINSIPE, [facility] [id number] Univers 15:00:00 15:00:00 KEY [id number] ity o f [facility] 2020-12-07 2020-12-07 Outpatient R AKINSIPE, [facility] [id number] Univers 15:00:00 15:00:00 KEY ity o f [facility] 2020-12-07 2020-12-07 Outpatient R AKINSIPE, [facility] [id number] Univers 15:00:00 15:00:[address] [facility] 2020-11-23 2020-11-23 Outpatient R AKINSIPE, [facility] [id number] Univers 14:15:00 14:15:[id number] [facility] 2020-11-23 2020-11-23 Outpatient R AKINSIPE, [facility] [id number] Univers 00:00:00 00:00:[address] [facility] 2020-11-11 2020-11-11 Telephone [facility] 1.2.840.114 [id number] Univers 00:00:00 00:00:00 Key C DENTAL CERAMIST [id number] ity of REGIONAL 4.2.7.2.686 [place] as MATERNAL [id number] Med ical & CHILD [address] [place] [address] 2020-11-11 2020-11-11 Telephone [facility] 1.2.840.114 [id number] 00:00:00 00:00:00 Key C DENTAL CERAMIST [id number] REGIONAL 4.2.7.2.686 MATERNAL [id number] & CHILD [address] [place] [address] 2020-10-17 2020-10-17 Letter [facility] [id number] Univers 00:00:00 00:00:00 (Out) Key C DENTAL CERAMIST [id number] ity of REGIONAL 4.2.7.2.686 [place] as MATERNAL [id number] Med ical & CHILD [address] [place] [address] 2020-10-17 2020-10-17 Letter Eriksipe, [facility] [id number] 00:00:00 00:00:00 (Out) Key Ricks DENTAL CERAMIST [id number] [facility] [id number] MATERNAL [id number] & CHILD [address] [place] [address] 2020-10-07 2020-10-07 Outpatient R AKINSIPE, [facility] [id number] Univers 15:00:00 15:00:[id number] [facility] 2020-10-07 2020-10-07 Outpatient R AKINSIPE, [facility] [id number] Univers 15:00:00 15:00:00 KEY meyery o f [facility] 2020-10-04 2020-10-04 Outpatient R AKINSIPE, [facility] [id number] Univers 14:15:00 14:15:[id number] [facility] 2020-10-04 2020-10-04 Outpatient R AKINSIPE, [facility] [id number] Univers 14:15:00 14:15:00 KEY meyery o f [facility] 2020-09-20 2020-09-20 Outpatient R AKINSIPE, [facility] [id number] Univers 13:30:00 13:30:[id number]y o [facility] 2020-09-20 2020-09-20 Outpatient R AKINSIPE, [facility] [id number] Univers 13:30:00 13:30:[address] [facility] 2020-09-07 2020-09-07 Emergency [facility] [id number] Univers 16:29:00 20:08:00 Yenny Hall 350.1.13.10 [place] 4.2.7.2.686 [facility] [place] [id number] [address] 2020-09-07 2020-09-07 Emergency [facility] [id number] 16:29:00 20:08:00 Yenny Parker [place] 350.1.13.10 [place] 42.7.2.686 [place] [id number] 4 2020-09-07 2020-09-07 Office Akinsipe, [facility] [id number] 14:27:17 15:59:19 Visit Key Ricks DENTAL CERAMIST 350.1.13.10 [facility] 4.2.7.2.686 MATERNAL [id number] & CHILD [address] [place] [address] 2020-09-07 2020-09-07 Office Akinsipe, [facility] [id number] [facility] 14:27:17 15:59:19 Visit Key Ricks DENTAL CERAMIST 350.1.13.[address] [facility] 4.2.7.2.686 [place] as MATERNAL [id number] Med ical & CHILD [address] [place] [address] 2020-09-07 2020-09-07 Outpatient R AKINSIPE, [facility] [id number] Univers 14:30:00 14:30:[id number] ity o [facility] 2020-09-07 2020-09-07 Outpatient R AKINSIPE, [facility] [id number] Univers 14:30:00 14:30:[address] [facility] 2020-09-07 2020-09-07 Orders Doctor ELISE [id number] Univers 00:00:00 00:00:00 Only Unassigned, FARAZ 350.1.13.10 ity of [facility] 4.2.7.2.686 [place] as [id number] [address] 2020-09-05 2020-09-05 Outpatient R HIRSCH, [facility] [id number] Univers 15:00:00 15:00:[address] DEVIKA [id number] ity o [facility] 2020-09-02 2020-09-02 Outpatient R AKINSIPE, [facility] [id number] Univers 10:30:00 10:30:00 KEY [id number] ity o f [facility] 2020-09-02 2020-09-02 Outpatient R AKINSIPE, [facility] [id number] Univers 10:30:00 10:30:00 KEYLB guzmán o f [facility] 2020-08-26 2020-08-26 Emergency Mckinley, [facility] [id number] Univers 17:30:00 20:13:00 Carmenza Sprague [place] 350.1.13.10 i ty [facility] 4.2.7.2.[place] [id number] [address] 2020-08-26 2020-08-26 Office Debra, [facility] [id number] Univers 15:55:58 17:12:33 Visit Key C DENTAL CERAMIST 350.1.13.10 ity of [facility] 4.2.7.2.686 [place] as MATERNAL [id number] [facility] ical & CHILD [address] [place] [address] 2020-08-26 2020-08-26 Office Debra [facility] [id number] Univers 16:51:05 17:11:04 Visit Key Ricks DENTAL CERAMIST 350.1.13.10 ity of [facility] 4.2.7.2.686 [place] as MATERNAL [id number] [facility] ical & CHILD [address] [place] [address] 2020-08-26 2020-08-26 Nurse Visit, [facility] Nurse [facility] 1.2 .840.114 [id number] Univers 16:20:49 16:35:49 Visit Key Richardson DENTAL CERAMIST 350.1.13. 10 ity of [facility] 4.2.7.2.686 [place] as MATERNAL [id number] [facility] & CHILD [address] [place] [address] 2020-08-26 2020-08-26 Outpatient R [facility] [id number] Univers 15:30:00 15:30:00 [id number] ity of [facility] 2020-08-26 2020-08-26 Outpatient R [facility] [id number] Univers 15:30:00 15:30:00 ity of [facility] 2020-08-26 2020-08-26 [facility] [id number] Univers 15:15:00 15:15:00 KEY ity o f [facility] 2020-08-26 2020-08-26 Outpatient R DEBRA [facility] [id number] Univers 15:00:00 15:00:00 KEY meyery o hoda [facility] 2019-12-14 2019-12-14 Telephone Ananda COMARINO [id number] Univers 00:00:00 00:00:00 Adriánlaina Zelaya DENTAL CERAMIST 350.1.13.10 ity of [facility] 4.2.7.2.686 [place] as MATERNAL [id number] [facility] ical & CHILD [address] [place] [address] 2019-05-13 2019-05-13 Office Hirsch, [facility] [id number] Univers 15:01:34 16:41:19 Visit Devika Zelaya DENTAL CERAMIST 350.1.13.10 ity of [facility] 4.2.7.2.686 [place] as MATERNAL [id number] [facility] & CHILD [address] [place] [address] 2019-05-13 2019-05-13 Orders Doctor ARIK [id number] Univers 00:00:00 00:00:00 Only Unassigned, FARAZ 350.1.13.10 ity of [place] [facility] 4.2.7.2.686 [place] as [id number] [address] 2009-12-23 2009-12-26 [facility] [id number] Univers 23:02:00 14:30:00 KILLIAN [address] [facility] Results Test Description Test Time Test Comments Results Result Comments Source VAGINAL PATHOGENS DNA PANEL 2021-12-05 14:37:35 Test Item Value Reference Range Interpretation Comme nts FORTUNATO SPECIES (test code = POSITIVE NEGATIVE A ) G. VAGINALIS (test code = NEGATIVE NEGATIVE ) T. VAGINALIS (test code = NEGATIVE NEGATIVE UNLESS OTHERWISE INDICATED, ) ALL TESTING PER [facility] [address] [place] [address] LABORATORY DIRE CTOR: RAUL WALDRON M.D. CLIA NUMBER [id number] [place]. [id number] TROPONIN [id number] 03:09:39 Test Item Value Reference Interpretation Comments Range TROPONIN I (test 0.003 ng/mL See_Comment [Automated code = 4018019657) message] The system which generated this result [...] biotin. Lab Interpretation Normal (test code = 77809-0) [id number] 03:09:39 Test Item Value Reference Range Interpretation Comments NT-proBNP (test code 142 pg/mL See_Comment H [Autom ated = [id number]) message] The system which generated this result transmitted reference range : <=125. The reference range was not used to interpret this result as normal/abnormal . ESTEFANI (test code = ESTEFANI) Biotin has been reported to cause a negative bias, interpret results relative to patient's use of biotin. Lab Interpretation Abnormal (test code = 48513-7) [facility] (61806)2021-11-25 02:30:30 Test Item Value Reference Range Interpretation Comments NA (test code = 135 mmol/L 135-145 [id number]) K (test code = 4.1 mmol/L 3.5-5.0 1490230008) CL (test code = 102 mmol/L 98-108 1677199647) CO2 TOTAL (test code 24 mmol/L 23-31 = 6756407301) AGAP (test code = 2-16 4637500692) BUN (test code = 10 mg/dL 7-23 2278308288) GLUCOSE (test code = 102 mg/dL 70-110 9579582551) CREATININE (test code 0.79 mg/dL 0.50-1.04 = 0034819868) TOTAL BILI (test code 0.3 mg/dL 0.1-1.1 = 0024818369) CALCIUM (test code = 8.8 mg/dL 8.6-10.6 1714480606) T PROTEIN (test code 7.3 g/dL 6.3-8.2 = 2414548283) ALBUMIN (test code = 4.4 g/dL 3.5-5.0 2549261638) ALK PHOS (test code = 87 U/L 34-122 8979897897) ALTv (test code = 16 U/L 5-35 1742-6) AST(SGOT) (test code 22 U/L 13-40 = 0293688287) eGFR (test code = mL/min/1.73m2 2444490115) ESTEFANI (test code = ESTEFANI) Association of [...] or urine or abnormalities in imaging tests). [facility]-[id number] 02:23:30 Test Item Value Reference Interpretation Comments Range D-DIMER (test code = See_Comment [Autom ated 3490811836) message] The system which generated this result [...] diagnosis. Lab Interpretation Normal (test code = 97997-1) [facility] WITH [id number] 02:18:48 Test Item Value Reference Range Interpretation Comments WBC (test code = See_Comment [Automated 9679-2) message] The sy stem which generated this result transmitted reference range : 4.30 - 11.10 10*3/?L. The reference range was not used to interpret this result as normal/abnormal . RBC (test code = See_Comment [Automated 183-8) message] The sy stem which generated this [...] RDW-SD (test code = 40.4 fL 39.0-49.9 03196-6) RDW-CV (test code = 12.0 % 12.0-15.5 788-0) PLT (test code = See_Comment [Automated 777-3) message] The sy stem which generated this result transmitted reference range : 166 - 358 10*3/ ?L. The reference r aaron was not used to interpret this result as normal/abnormal . MPV (test code = 8.8 fL 9.5-12.9 L 42517-0) NRBC/100 WBC (test See_Comment [Automat ed code = 9573018994) message] The system which generated this result transmitted reference range : 0.0 - 10.0 /100 WBCs. The refer ence range was not u sed to interpret th is result as normal/abnormal . NRBC x10^3 (test code <0.01 See_Comment [Auto mated = 9405671754) message] The s ystem which generated this result transmitted reference range : 10*3/?L. The reference range was not used to interpret this result as normal/abnormal . GRAN MAT (NEUT) % 64.3 % (test code = 770-8) IMM GRAN % (test code 0.20 % = 7109025822) LYMPH % (test code = 23.8 % 736-9) MONO % (test code = 8.1 % 5905-5) EOS % (test code = 3.2 % 713-8) BASO % (test code = 0.4 % 706-2) GRAN MAT x10^3(ANC) 5.35 10*3/uL 1.88-7.09 (test code = 4109158910) IMM GRAN x10^3 (test <0.03 0.00-0.06 code = 4478460358) LYMPH x10^3 (test code 1.98 10*3/uL 1.32-3.29 = 731-0) MONO x10^3 (test code 0.67 10*3/uL 0.33-0.92 = 742-7) EOS x10^3 (test code = 0.27 10*3/uL 0.03-0.39 711-2) BASO x10^3 (test code 0.03 10*3/uL 0.01-0.07 = 704-7) Lab Interpretation Abnormal (test code = 95139-9) [facility]-PCR/[id number] 15:39:22 Test Item Value Reference Interpretation Comments Range SARS-CoV-2 NEGATIVE SEE NOTE SARS-CoV-2 RNA NOT INTERPRETATION DETECTEDNegat roz (test code = 42463) results do not preclude SARS-CoV-2 infe ction [...] code = NOT SPECIF[place]: [place] [address]) Pratima Lisha Nancy l-Time RT-PCR. The exp [...] provided by met hod given in report:https:// www.cpll abs.com/clinici ans/clie nt-communicatio ns/ Alternatively, see downloadable PD F fact sheet at:https://www. [employer]/COVID-19-RT -PCR UNLESS OTHERW ISE INDICATED, ALL TESTING PERFORMED [facility] [employer] [address] [place] [address] 4 LABORATORY DI NADER: RAUL KIRBY M.D. JOAQUINA Zelaya [id number] [facility] ACCREDITATION N O. [id number] TROPONIN [id number] 04:08:08 Test Item Value Reference Interpretation Comments Range TROPONIN I (test 0.002 ng/mL See_Comment [Automated code = 9370008239) message] The system which generated this result [...] biotin. Lab Interpretation Normal (test code = 20795-0) [id number] 04:08:08 Test Item Value Reference Range Interpretation Comments NT-proBNP (test code 210 pg/mL See_Comment H [Autom ated = 0430414339) message] The system which generated this result transmitted reference range : <=125. The reference range was not used to interpret this result as normal/abnormal . ESTEFANI (test code = ESTEFANI) Biotin has been reported to cause a negative bias, interpret results relative to patient's use of biotin. Lab Interpretation Abnormal (test code = 10431-2) [facility] 04:00:38 Test Item Value Reference Range Interpretation Comments APPEARANCE (test code = Clear Clear 8785889796) COLOR (test code = Yellow Yellow 6336704357) PH (test code = 4.8-8.0 7700558014) SP GRAVITY (test code = 1.003-1.030 2612061052) GLU U QUAL (test code = Normal Normal 9545613116) BLOOD (test code = Negative Negative 6698435443) KETONES (test code = Negative Negative 8587363558) PROTEIN (test code = Negative Negative 2887-8) UROBILIN (test code = Normal Normal 6125023000) BILIRUBIN (test code = Negative Negative 1655186080) NITRITE (test code = Negative Negative 2936105473) LEUK ANGELICA (test code = Negative Negative 4142835157) RBC/HPF (test code = See_Comment [Autom ated message] 4875245147) The system [employer] generated this result transmitted ref erence range: 0 - 3 HP F. The reference range was not used to int erpret this result as normal/abnormal . WBC/HPF (test code = See_Comment [Autom ated message] 8373484901) The system [employer] generated this result transmitted ref erence range: 0 - 5 HP F. The reference range was not used to int erpret this result as normal/abnormal . BACTERIA (test code = Negative Negative 9054350743) SQ EPITH (test code = See_Comment H [Auto mated message] 3304604336) The system [employer] generated this result transmitted ref erence range: <=2 HPF. The reference range was not used to int erpret this result as normal/abnormal . Lab Interpretation (test Abnormal code = 70304-8) [facility]. METABOLIC PANEL (13149)2021-05-15 03:54:11 Test Item Value Reference Range Interpretation Comments NA (test code = 134 mmol/L 135-145 L 4201546858) K (test code = 4.0 mmol/L 3.5-5.0 0832607888) CL (test code = 100 mmol/L 98-108 7052524231) CO2 TOTAL (test code = 25 mmol/L 23-31 3139462294) AGAP (test code = 2-16 3129284620) BUN (test code = 12 mg/dL 7-23 8847765777) GLUCOSE (test code = 97 mg/dL 70-110 6910649258) CREATININE (test code = 0.82 mg/dL 0.50-1.04 8275886987) TOTAL BILI (test code = 0.4 mg/dL 0.1-1.0 6184457777) CALCIUM (test code = 9.0 mg/dL 8.6-10.6 4123535845) T PROTEIN (test code = 7.2 g/dL 6.3-8.2 5927726498) ALBUMIN (test code = 4.3 g/dL 3.5-5.0 7447875878) ALK PHOS (test code = 74 U/L 34-122 8753732797) ALTv (test code = 40 U/L 5-35 H 1742-6) AST(SGOT) (test code = 34 U/L 13-40 1484183182) eGFR (test code = mL/min/1.73m2 3420372344) ESTEAFNI (test code = ESTEFANI) Association of Glomerular [...] tests). Lab Interpretation Abnormal (test code = 85382-5) [facility]21[facility] 03:54:11 Test Item Value Reference Range Interpretation Comments PHOSPHORUS (test code = 8980272929) 4.0 mg/dL 2.5-5.0 Lab Interpretation (test code = Normal 35104-0) [facility]21[facility] 03:54:11 Test Item Value Reference Range Interpretation Comments MAGNESIUM (test code = 5042606646) 1.9 mg/dL 1.7-2.4 Lab Interpretation (test code = Normal 91628-4) [facility] 03:54:11 Test Item Value Reference Range Interpretation Comments LIPASE (test code = 0436820116) 124 U/L 0-220 Lab Interpretation (test code = Normal 81430-4) [facility] CenterD-[id number] 03:53:41 Test Item Value Reference Interpretation Comments Range D-DIMER (test code = <0.21 See_Comment [Autom ated 2618358482) message] The system which generated this result [...] diagnosis. 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 It is used under Emergency Use [...] indicated. Lab Interpretation Normal (test code = 44623-7) [facility] WITH [id number] 03:37:28 Test Item Value Reference Range Interpretation Comments WBC (test code = See_Comment [Automated 2284-2) message] The sy stem which generated this result transmitted reference range : 4.30 - 11.10 10*3/?L. The reference range was not used to interpret this result as normal/abnormal . RBC (test code = See_Comment [Automated 549-8) message] The sy stem which generated this [...] RDW-SD (test code = 45.2 fL 39.0-49.9 37649-6) RDW-CV (test code = 12.8 % 12.0-15.5 788-0) PLT (test code = See_Comment [Automated 777-3) message] The sy stem which generated this result transmitted reference range : 166 - 358 10*3/ ?L. The reference r aaron was not used to interpret this result as normal/abnormal . MPV (test code = 8.7 fL 9.5-12.9 L 37004-5) NRBC/100 WBC (test See_Comment [Automat ed code = 4113728621) message] The system which generated this result transmitted reference range : 0.0 - 10.0 /100 WBCs. The refer ence range was not u sed to interpret th is result as normal/abnormal . NRBC x10^3 (test code <0.01 See_Comment [Auto mated = 5724859356) message] The s ystem which generated this result transmitted reference range : 10*3/?L. The reference range was not used to interpret this result as normal/abnormal . GRAN MAT (NEUT) % 63.9 % (test code = 770-8) IMM GRAN % (test code 0.20 % = 7010688510) LYMPH % (test code = 25.4 % 736-9) MONO % (test code = 8.5 % 5905-5) EOS % (test code = 1.3 % 713-8) BASO % (test code = 0.7 % 706-2) GRAN MAT x10^3(ANC) 5.37 10*3/uL 1.88-7.09 (test code = 2433375413) IMM GRAN x10^3 (test <0.03 0.00-0.06 code = 1300340007) LYMPH x10^3 (test code 2.13 10*3/uL 1.32-3.29 = 731-0) MONO x10^3 (test code 0.71 10*3/uL 0.33-0.92 = 742-7) EOS x10^3 (test code = 0.11 10*3/uL 0.03-0.39 711-2) BASO x10^3 (test code 0.06 10*3/uL 0.01-0.07 = 704-7) Lab Interpretation Abnormal (test code = 87011-8) [facility] [id number] 17:23:00 Test Item Value Reference Range Interpretation Comments URINE CULTURE (test > 100,000 CFU/mL mixed code = 630-4) aerobic organisms - suggests endogenous microbial contamination [facility] [id number] 17:23:00 Test Item Value Reference Range Interpretation Comments URINE CULTURE (test > 100,000 CFU/mL mixed code = 630-4) aerobic organisms - suggests endogenous microbial contamination [facility]TR[facility] [id number] 01:33:00 Test Item Value Reference Range Interpretation Comments TROPONIN I (test <0.012 See_Comment [Automated code = 0790449125) message] The system which generated this result [...] ? Lab Interpretation Normal (test code = 53886-4) [facility]XR [facility]ST 1 [id number] 01:31:40 Cardiomegaly with mild prominence of the interstitial markings. These couldrepresent mild edema or pneumonitis. Please correlate clinically. RL: 135 ORDERING PHYSICIAN: ? CARMENZA VELASCO HISTORY: Shortness of breath. ? COMPARISON: none FINDINGS: Single frontal view of the chest. Heart is mildly prominent. ?There is mild prominence of the in terstitialmarkings.. There are no focal areas of consolidation. There is nopneumothorax. ?There are no pleural effusions. Osseous structures areunremarkable. ? Please note that chest radiography is nota sensitive modality for thedetection of masses. [facility], Radiant Results Inft User - 08/26/2020 7:32 [...] edema or pneumonitis. Please correlate clinically.RL: 135 [facility]. METABOLIC PANEL (71466)2020-08-27 01:23:00 Test Item Value Reference Range Interpretation Comments NA (test code = 133 mmol/L 135-145 L 0665002191) K (test code = 4.1 mmol/L 3.5-5 9890845273) CL (test code = 99 mmol/L 98-108 2652070043) CO2 TOTAL (test code = 26 mmol/L 23-31 9794090869) AGAP (test code = 2-16 4163770855) BUN (test code = 8 mg/dL 7-23 1254845523) GLUCOSE (test code = 102 mg/dL 70-110 0914746011) CREATININE (test code = 0.68 mg/dL 0.5-1.04 3307887164) TOTAL BILI (test code = 0.5 mg/dL 0.1-1.9 6036027074) CALCIUM (test code = 9.5 mg/dL 8.6-10.6 3995071834) T PROTEIN (test code = 8.1 g/dL 6.3-8.2 4670116346) ALBUMIN (test code = 4.7 g/dL 3.5-5 2885239814) ALK PHOS (test code = 94 U/L 34-122 0278459972) ALTv (test code = 37 U/L 5-35 H 1742-6) AST(SGOT) (test code = 36 U/L 13-40 0781177010) eGFR Calculation mL/min/1.73m2 (Non-) (test code = 8294299030) eGFR Calculation mL/min/1.73m2 () (test code = 3283985437) ESTEFANI (test code = ESTEFANI) Association of [...] tests). Lab Interpretation Abnormal (test code = 32349-1) [facility]2020-12-05 00:59:00 Test Item Value Reference Range Interpretation Comments APPEARANCE (test code = Clear Clear 5684560373) COLOR (test code = Yellow Yellow 2206691303) PH (test code = 4.8-8.0 0582975695) SP GRAVITY (test code = 1.003-1.030 0128910756) GLU U QUAL (test code = Negative Negative 8400794870) BLOOD (test code = Negative Negative 8541421576) KETONES (test code = Trace Negative A 1380719826) PROTEIN (test code = Negative Negative 2887-8) UROBILIN (test code = 0.2 mg/dL See_Comment [Auto mated message] 0479007060) The system [employer] generated this result transmit luis miguel reference range : 0-1.0 mg/dL. Th e reference range was not used to interpret this result as normal/abnormal . BILIRUBIN (test code = Negative Negative 2377163552) NITRITE (test code = Negative Negative 0399749520) LEUK ANGELICA (test code = Negative Negative 8661535426) RBC/HPF (test code = <1 See_Comment [Autom ated message] 3582777570) The system [employer] generated this result transmit luis miguel reference range : 0 - 3 HPF. The refe rence range was not u sed to interpret th is result as normal/abnormal . WBC/HPF (test code = <1 See_Comment [Autom ated message] 7991933078) The system [employer] generated this result transmit luis miguel reference range : 0 - 5 HPF. The refe rence range was not u sed to interpret th is result as normal/abnormal . BACTERIA (test code = Negative Negative 4216834969) Lab Interpretation (test Abnormal code = 64257-4) [facility] CenterACTIV[facility] PARTIAL THRMPLAS [id number] 00:52:00 Test Item Value Reference Range Interpretation [...] seconds. Lab Interpretation Normal (test code = 34181-5) [facility] CenterPROTHROMBIN TIME / [id number] 00:50:00 Test Item Value Reference Range Interpretation Comments PROTIME PATIENT (test See_Comment [Auto mated message] code = 5964-2) The system [employer] generated this result transmitted ref erence range: 12.0 - 1 4.7 Seconds. The re ference range was not u sed to interpret this result as normal/abnor mal. INR (test code = 6301-6) Nor mal INR <1.1; Warfarin Therap eutic range 2.0 to 3. 0 or 2.5 to 3.5, dep ending upon the indica tions. Lab Interpretation (test Normal code = 42538-8) [facility] WITH [id number] 00:45:00 Test Item Value Reference Range Interpretation [...] RDW-SD (test code = 41.3 fL 39-49.9 76100-0) RDW-CV (test code = 11.5 % 12-15.5 L 788-0) PLT (test code = See_Comment [Automated 777-3) message] The sy stem which generated this result transmitted reference range : 166 - 358 10*3/ ?L. The reference r aaron was not used to interpret this result as normal/abnormal . MPV (test code = 9.0 fL 9.5-12.9 L 88091-5) NRBC/100 WBC (test See_Comment [Automat ed code = 8601207949) message] The system which generated this result transmitted reference range : 0.0 - 10.0 /100 WBCs. The refer ence range was not u sed to interpret th is result as normal/abnormal . NRBC x10^3 (test code <0.01 See_Comment [Auto mated = 0408964462) message] The s ystem which generated this result transmitted reference range : 10*3/?L. The reference range was not used to interpret this result as normal/abnormal . GRAN MAT (NEUT) % 66.0 % (test code = 770-8) IMM GRAN % (test code 0.10 % = 0044750149) LYMPH % (test code = 21.5 % 736-9) MONO % (test code = 7.8 % 5905-5) EOS % (test code = 4.2 % 713-8) BASO % (test code = 0.4 % 706-2) GRAN MAT x10^3(ANC) 5.16 10*3/uL 1.88-7.09 (test code = 9329415726) IMM GRAN x10^3 (test <0.03 0-0.06 code = 6824300595) LYMPH x10^3 (test code 1.68 10*3/uL 1.32-3.29 = 731-0) MONO x10^3 (test code 0.61 10*3/uL 0.33-0.92 = 742-7) EOS x10^3 (test code = 0.33 10*3/uL 0.03-0.39 711-2) BASO x10^3 (test code 0.03 10*3/uL 0.01-0.07 = 704-7) Lab Interpretation Abnormal (test code = 07926-2) [facility] URINALYSIS W/O SPECIFIC [id number] 22:15:00 Test Item Value Reference Range Interpretation [...] code = 3257) Trace Negative - Negative [facility] URINALYSIS W/O SPECIFIC [id number] 22:15:00 Test Item Value Reference Range Interpretation [...] code = 3257) Trace Negative - Negative [facility] URINALYSIS W SPECIFIC [id number] 20:43:00 Test Item Value Reference Range Interpretation [...] POCT U APPEAR (test code = 3267) [facility] URINALYSIS W SPECIFIC [id number] 20:43:00 Test Item Value Reference Range Interpretation [...] POCT U APPEAR (test code = 3267) [facility] URINALYSIS W SPECIFIC [id number] 20:43:00 Test Item Value Reference Range Interpretation [...] POCT U APPEAR (test code = 3267) [facility] URINALYSIS W SPECIFIC [id number] 20:43:00 Test Item Value Reference Range Interpretation [...] POCT U APPEAR (test code = 3267) [facility] URINALYSIS W SPECIFIC [id number] 20:43:00 Test Item Value Reference Range Interpretation [...] POCT U APPEAR (test code = 3267) [facility]CIFIC [id number] 20:43:00 Test Item Value Reference Range Interpretation [...] POCT U APPEAR (test code = 3267) [facility]
[2021-12-07 21:07] LABS: Absolute Lymphocytes (CBC) 1.5 K/uL (0.7-4.9); Hematocrit 38.4 % (36.0-45.0); Lymphocytes % 21.5 % (15.3-44.8); RBC Red Blood Cell Count 4.07 M/uL (3.86-4.86)
[2021-12-07 21:29] LABS: BUN Blood Urea Nitrogen 11 mg/dL (7-18); Bicarbonate 27 mmol/L (21-32); Glucose Level 105 mg/dL (74-106); Sodium Level 134 mmol/L (136-145)
[2021-12-07 21:41] LABS: Troponin High Sensitivity < 3.00 pg/mL (<58.9)
[2021-12-07 22:05] LABS: Urine Blood Trace-intact (Negative); Urine Glucose Negative (Negative); Urine Protein Negative (Negative); Urine Specific Gravity 1.015 (1.005-1.030); Urine pH 6.5 (5.0-7.0)
--- NOTE | 2021-12-07 22:24 | RAD REPORT ---
EXAM DESCRIPTION: RAD - Chest Single View - 12/07/2021 9:19 pm CLINICAL HISTORY: CHEST PAIN COMPARISON: Portable 12/01/2021 TECHNIQUE: AP portable chest image was obtained 12/07/2021 9:19 pm . FINDINGS: No acute lung parenchymal process. Interstitial pattern matches comparison. Heart and vasc ulature are normal. No measurable pleural effusion and no pneumothorax. No acute bony abnormality see n. No acute aortic findings suspected. IMPRESSION: No acute cardiopulmonary process. No significant change from comparison study.
--- NOTE | 2021-12-08 01:21 | ER ---
Nurse's Notes [facility] Name: Carmel Rodriguez Age: 61 yrs Sex: Female : 1960 Arrival Date: 12/07/2021 Time: 20:21 Bed 2 Private MD: Diagnosis: Adjustment disorder with anxiety;Chest pain, unspecified;Dysuria Presentation: 12/07 20:23 Chief complaint: EMS states: pt complaining of having pressure in her chest/ epigastric kd3 region after eating and having trouble urinating. Coronavirus screen: Vaccine status:. Ebola Screen: No symptoms or risks identified at this time. Initial Sepsis Screen: Does the patient meet any 2 criteria? No. Patient's initial sepsis screen is negative. Does the patient have a suspected source of infection? No. Patient's initial sepsis screen is negative. Risk Assessment: Do you want to hurt yourself or someone else? Patient reports no desire to harm self or others. Onset of symptoms was December 07, 2021. 20:23 Method Of Arrival: EMS: [facility] kd3 20:23 Acuity: CHRISTINE 3 kd3 Triage Assessment: 20:27 General: Appears uncomfortable, Behavior is crying. Pain: Complains of pain in pain kd3 with urination. Cardiovascular: Reports since tightness in epigastric region. Historical: - Allergies: 20:25 ACETAMINOPHEN; kd3 20:25 CALCIUM CARBONATE; kd3 20:25 EXCEDRIN; kd3 20:25 Excedrin PM; kd3 20:25 Ibuprofen; kd3 20:25 Toradol; kd3 20:25 NSAIDS; kd3 - Home Meds: 20:25 buspirone 10 mg Oral tab 3 tabs 2 times per day [Active]; hydralazine 50 mg Oral tab 1 kd3 tab 2 times per day [Active]; hydroxyzine HCl 50 mg Oral tab 1 tab daily [Active]; losartan 100 mg Oral tab 1 tab once daily [Active]; metoprolol tartrate 50 mg Oral tab 1 tab 2 times per day [Active]; mirtazapine 30 mg Oral tab 1 tab once daily [Active]; pantoprazole 40 mg Oral TbEC 1 tab once daily [Active]; Vitamin D2 50,000 unit Oral cap 89228 unit WEEKLY [Active]; - PMHx: 20:25 Anxiety; Depression; Hypertension; kd3 - PSHx: 20:25 section; kd3 - Immunization history:: Adult Immunizations up to date. - Social history:: Smoking status: unknown. Screenin:27 Abuse screen: Denies threats or abuse. Denies injuries from another. Nutritional kd3 screening: No deficits noted. Tuberculosis screening: No symptoms or risk factors identified. Fall Risk None identified. Assessment: 20:45 Pain: Pain does not radiate. Pain began 2-3 days ago. kd3 Vital Signs: 20:36 BP 137 / 72; Pulse 78; Resp 16; Temp 97.2; Pulse Ox 97% ; Weight 112.49 kg; Height 5 kd3 ft. 4 in. (162.56 cm); 22:00 BP 137 / 68; Pulse 74; Resp 16; Pulse Ox 98% on R/A; st1 23:00 BP 136 / 37; Pulse 70; Resp 16; Pulse Ox 98% on R/A; st1 23:30 BP 145 / 74; Pulse 72; Resp 16; Pulse Ox 97% on R/A; st1 03 01:12 BP 176 / 70; Pulse 95; Resp 19; Pulse Ox 99% on R/A; st1 01:27 BP 156 / 70; Pulse 86; Resp 16; Pulse Ox 100% on R/A; st1 03 20:36 Body Mass Index 42.57 (112.49 kg, 162.56 cm) kd3 ED Course: 12/07 20:21 Patient arrived in ED. wm 20:23 Felicia Maki, MANDI is Primary Nurse. kd3 20:25 Triage completed. kd3 20:27 Teddy Keyes MD is Attending Physician. kdr 20:29 Arm band placed on left wrist. kd3 20:45 Patient has correct armband on for positive identification. Placed in gown. Cardiac kd3 monitor on. Pulse ox on. NIBP on. 20:45 Patient maintains SpO2 saturation greater than 95% on room air. kd3 20:54 Troponin HS Sent. st1 20:54 CBC with Diff Sent. st1 20:54 Basic Metabolic Panel Sent. st1 20:54 Inserted saline lock: 20 gauge in left forearm, using aseptic technique. Blood st1 collected. 21:18 XRAY Chest (1 view) In Process Unspecified. EDMS 22:04 Urine Culture Sent. st1 22:05 Straight cath inserted, using sterile technique, 16 Fr. Specimen obtained. Returned st1 clear yellow urine. Patient tolerated well. 12/08 01:35 No provider procedures requiring assistance completed. IV discontinued, intact, st1 bleeding controlled, No redness/swelling at site. Pressure dressing applied. Administered Medications: No medications were administered Outcome: 01:20 Discharge ordered by . kdr 01:35 Discharged to home ambulatory. st1 01:35 Condition: good 01:35 Discharge instructions given to patient, Instructed on discharge instructions, follow up and referral plans. no drinking with medication, medication usage, Demonstrated understanding of instructions, follow-up care, medications, Prescriptions given X 1. 01:46 Patient left the ED. st1 Signatures: Dispatcher [employer] EDID Teddy Keyes MD MD kdr Marsh, Wendy wm Doucette, Kyli RN RN kd3 Soumya Hart RN RN st1
--- NOTE | 2021-12-08 01:21 | EDPHYS ---
Physician Documentation [facility] Name: Carmel Rodriguez Age: 61 yrs Sex: Female : 1960 Arrival Date: 12/07/2021 Time: 20:21 Bed 2 Private MD: ED Physician Teddy Keyes HPI: 12/08 06:45 This 61 yrs old Female presents to ER via EMS with complaints of Urinary kdr Problem, Chest Tightness. 06:45 The patient or guardian reports chest pain that is located primarily in the substernal kdr area. Onset: suddenly, just prior to arrival. The pain does not radiate. Associated signs and symptoms: The patient has no apparent associated signs or symptoms. The chest pain is described as dull, a pressure. Duration: The patient or guardian reports multiple episodes, that are intermittent, that wax and wane, with no pattern. Severity of pain: At its worst the pain was mild moderate in the emergency department the pain has improved markedly. The patient has experienced similar episodes in the past, multiple times. The patient has not recently seen a physician. The patient statDifficulty urinatinges that she has been having chest pressure and epigastric pain after eating.She also reports. Historical: - Allergies: 12/07 20:25 ACETAMINOPHEN; kd3 20:25 CALCIUM CARBONATE; kd3 20:25 EXCEDRIN; kd3 20:25 Excedrin PM; kd3 20:25 Ibuprofen; kd3 20:25 Toradol; kd3 20:25 NSAIDS; kd3 - Home Meds: 20:25 buspirone 10 mg Oral tab 3 tabs 2 times per day [Active]; hydralazine 50 mg Oral tab 1 kd3 tab 2 times per day [Active]; hydroxyzine HCl 50 mg Oral tab 1 tab daily [Active]; losartan 100 mg Oral tab 1 tab once daily [Active]; metoprolol tartrate 50 mg Oral tab 1 tab 2 times per day [Active]; mirtazapine 30 mg Oral tab 1 tab once daily [Active]; pantoprazole 40 mg Oral TbEC 1 tab once daily [Active]; Vitamin D2 50,000 unit Oral cap 79473 unit WEEKLY [Active]; - PMHx: 20:25 Anxiety; Depression; Hypertension; kd3 - PSHx: 20:25 section; kd3 - Immunization history:: Adult Immunizations up to date. - Social history:: Smoking status: unknown. ROS: 12/08 06:45 Constitutional: Negative for fever, chills, and weight loss, Eyes: Negative for injury, kdr pain, redness, and discharge, Neck: Negative for injury, pain, and swelling, Cardiovascular: Negative for chest pain, palpitations, and edema, Respiratory: Negative for shortness of breath, cough, wheezing, and pleuritic chest pain, Abdomen/GI: Negative for abdominal pain, nausea, vomiting, diarrhea, and constipation, Back: Negative for injury and pain, : Negative for injury, bleeding, discharge, and swelling, MS/Extremity: Negative for injury and deformity, Skin: Negative for injury, rash, and discoloration, Neuro: Negative for headache, weakness, numbness, tingling, and seizure activity. Psych: Negative for depression, anxiety, suicide ideation, homicidal ideation, and hallucinations, Allergy/Immunology: Negative for hives, rash, and allergies, Endocrine: Negative for neck swelling, polydipsia, polyuria, polyphagia, and marked weight changes, Hematologic/Lymphatic: Negative for swollen nodes, abnormal bleeding, and unusual bruising. Exam: 06:45 Constitutional: This is a well developed, well nourished patient who is awake, alert, kdr and in no acute distress. Head/Face: Normocephalic, atraumatic. Eyes: Pupils equal round and reactive to light, extra-ocular motions intact. Lids and lashes normal. Conjunctiva and sclera are non-icteric and not injected. Cornea within normal limits. Periorbital areas with no swelling, redness, or edema. Neck: Trachea midline, no thyromegaly or masses palpated, and no cervical lymphadenopathy. Supple, full range of motion without nuchal rigidity, or vertebral point tenderness. No Meningismus. Chest/axilla: Normal chest wall appearance and motion. Nontender with no deformity. No lesions are appreciated. Cardiovascular: Regular rate and rhythm with a normal S1 and S2. No gallops, murmurs, or rubs. Normal PMI, no JVD. No pulse deficits. Respiratory: Lungs have equal breath sounds bilaterally, clear to auscultation and percussion. No rales, rhonchi or wheezes noted. No increased work of breathing, no retractions or nasal flaring. Abdomen/GI: Soft, non-tender, with normal bowel sounds. No distension or tympany. No guarding or rebound. No evidence of tenderness throughout. Skin: Warm, dry with normal turgor. Normal color with no rashes, no lesions, and no evidence of cellulitis. MS/ Extremity: Pulses equal, no cyanosis. Neurovascular intact. Full, normal range of motion. Neuro: Awake and alert, GCS 15, oriented to person, place, time, and situation. Cranial nerves II-XII grossly intact. Motor strength 5/5 in all extremities. Sensory grossly intact. Cerebellar exam normal. Normal gait. Psych: Awake, alert, with orientation to person, place and time. Behavior, mood, and affect are within normal limits. Vital Signs: 12/07 20:36 BP 137 / 72; Pulse 78; Resp 16; Temp 97.2; Pulse Ox 97% ; Weight 112.49 kg; Height 5 kd3 ft. 4 in. (162.56 cm); 22:00 BP 137 / 68; Pulse 74; Resp 16; Pulse Ox 98% on R/A; st1 23:00 BP 136 / 37; Pulse 70; Resp 16; Pulse Ox 98% on R/A; st1 23:30 BP 145 / 74; Pulse 72; Resp 16; Pulse Ox 97% on R/A; st1 12/08 01:12 BP 176 / 70; Pulse 95; Resp 19; Pulse Ox 99% on R/A; st1 01:27 BP 156 / 70; Pulse 86; Resp 16; Pulse Ox 100% on R/A; st1 12/07 20:36 Body Mass Index 42.57 (112.49 kg, 162.56 cm) kd3 MDM: 01:20 Patient medically screened. kdr 06:45 Data reviewed: vital signs, nurses notes, lab test result(s), radiologic studies. kdr Counseling: I had a detailed discussion with the patient and/or guardian regarding: the historical points, exam findings, and any diagnostic results supporting the discharge/admit diagnosis, lab results, radiology results, the need for outpatient follow up. 12/07 20:28 Order name: Basic Metabolic Panel; Complete Time: : kdr 12/07 20:28 Order name: CBC with Diff; Complete Time: : kdr 12/07 20:28 Order name: Troponin HS; Complete Time: 01:14 kdr 12/07 20:28 Order name: XRAY Chest (1 view); Complete Time: 01:14 kdr 12/07 20:28 Order name: Urine Culture [facility] 12/07 22:05 Order name: Urine Dipstick-Ancillary; Complete Time: 01:14 [facility] 12/07 20:28 Order name: EKG; Complete Time: 20:29 kdr 12/07 20:28 Order name: Cardiac monitoring; Complete Time: 20:54 [facility] 12/07 20:28 Order name: EKG - Nurse/Tech; Complete Time: 21:09 kdr 12/07 20:28 Order name: IV Saline Lock; Complete Time: 20:54 kdr 12/07 20:28 Order name: Labs collected and sent; Complete Time: 20:54 [facility] 12/07 20:28 Order name: O2 Per Protocol; Complete Time: 20:54 [facility] 12/07 20:28 Order name: O2 Sat Monitoring; Complete Time: 20:54 [facility] 12/07 20:28 Order name: Urine Dipstick-Ancillary (obtain specimen); Complete Time: 22:04 [facility] 12/07 21:10 Order name: Straight Cath; Complete Time: 22:04 st1 Administered Medications: No medications were administered Disposition Summary: 12/08/21 01:20 Discharge Ordered Location: Home kdr Problem: new kdr Symptoms: have improved kdr Condition: Stable kdr Diagnosis - Adjustment disorder with anxiety kdr - Chest pain, unspecified kdr - Dysuria kdr Followup: kdr - With: Private Physician - When: 2 - 3 days - Reason: If symptoms return, Further diagnostic work-up, Recheck today's complaints, Continuance of care, Re-evaluation by your physician Discharge Instructions: - Discharge Summary Sheet kdr - Dysuria kdr - Nonspecific Chest Pain, Adult, [id number] kdr Forms: - Medication Reconciliation Form kdr - Thank You Letter kdr Prescriptions: - Pyridium 200 mg Oral Tablet - take 1 tablet by ORAL route every 8 hours for 3 days; 9 tablet; Refills: 0, kdr Product Selection Permitted Signatures: Dispatcher [employer] Teddy Kinney MD MD kdr Felicia Maki RN RN kd3 Soumya Hart RN RN st1
[2021-12-08 04:06] VITALS: TEMP 97.2
[2021-12-08 04:12] VITALS: BP 156/70; O2SAT 100
--- NOTE | 2021-12-11 08:29 | EKG ---
Test Date: 2021-12-07 Test Time: 20:05:14 [employer]: MICHAELA MEASUREMENT RESULTS: Intervals: Rate: 77 NM: 150 QRSD: 78 QT: 380 QTc: 430 [place]: P: 1 NM: 150 QRS: 20 T: 1 INTERPRETIVE STATEMENTS: Normal sinus rhythm Normal ECG Compared to ECG 12/01/2021 02:40:56 Left ventricular hypertrophy no longer present T-wave abnormality no longer present Electronically Signed On 12-11-21 08:23:00 CDT by Kishore Bateman
== END 2021-12-08 01:46 | disposition home or self-care (01) ==
LOC: ER 20:19
DX: F43.22 Adjustment disorder with anxiety (principal); R30.0 Dysuria; I10 Essential (primary) hypertension; F41.8 Other specified anxiety disorders; Z88.6 Allergy status to analgesic agent; Z88.8 Allergy status to other drugs, medicaments and biological substances
CPT/HCPCS: 36415; 51702; 71045; 80048; 81003; 84484; 85025; 87086; 87088; 93005; 99285

== ENCOUNTER 2022-08-13 18:14 | Emergency (ER) | payer OTHER ==
--- OUTSIDE RECORDS SUMMARY | 2022-08-13 18:22 | XMS REPORT | Continuity of Care Document ---
:1960 Author Organization [facility] t Address [address] [place] [address] Care Team Providers Name Role Phone Eva ROMAN, [facility] Primary Care Physician [phone] TESHA IRELAND Attending Clinician Unavailable TESHA IRELAND Attending Clinician Unavailable PHILL ASHBY Attending Clinician Unavailable RADIOLOGY Attending Clinician Unavailable COREY RICHARDSON Attending Clinician Unavailable Lab, Keyla Attending Clinician Unavailable Corey Paul Attending Clinician [phone] Sloane Robles Attending Clinician GOLD DELUCA Attending Clinician Unavailable Odessa Gamez MD Attending Clinician Pgy2 Attending Clinician Unavailable Phill Ashby MD Attending Clinician Pgy3 Attending Clinician Unavailable Romel Mclaughlin [facility] Attending Clin ician TITO CASTILLO Attending Clinician Unavailable DEVIKA HIRSCH Attending Clinician Unavailable Mono, Keyla Nurse Attending Clinician Unavailable Devika Garzon Attending Clinician Doctor Unassigned, Point Attending Clinician Unavailable BENNIE MANUEL Attending Clinician Unavailable SUZETTE ROYAL Attending Clinician Unavailable Suzette Royal MD Attending Clinician DARLENE AMBROSE Attending Clinician Unavailable Darlene Barrientos Attending Clinician Suresh Oleary MD Attending Clinician Sean MCLAIN, Yenny Parker Attending Clinician Carmenza Scott Attending Clinician CARMENZA MCKINLEY Attending Clinician Unavailable KILLIAN COLUNGA Attending Clinician Unavailable SUZETTE ROYAL Admitting Clinician Unavailable DARLENE AMBROSE Admitting Clinician Unavailable SUKUMAR BERNARD Admitting Clinician Unavailable Payers Payer Name Policy Type Policy Number Effective Date Expiration Date Darcie griffith MEDICARE PART A [id number] 2020 \T\ B 00:00:00 Problems Condition Condition Condition Status Onset Resolution Last Treating Co mments Source Name Details Category Date Date Treatment Clinician Date Encounter Encounter Disease Active Uni vers for for 6- ity of surveillan [place] of Medical other other Branch contracept contracept roz roz Menopausal Menopausal Disease Active U nivers state state 6-23 ity of 00:00: [place] [facility] Elevated Elevated Disease Active Unive rs blood blood 6-23 ity of pressure pressure 00:00: [place] reading reading 00 Medical without without Branch diagnosis diagnosis of of hypertensi hypertensi on on BMI BMI Disease Active Univers 40.0-44.9, 40.0-44.9, 6-23 it y of adult adult 00:00: Medical Branch Pain Pain Disease Active Univers pelvic pelvic 6-23 ity of 00:00: [place] [facility] Dysuria Dysuria Disease Active Univers 6-23 ity of 00:00: [place] [facility] History of History of Disease Active U nivers depression depression 6-23 it y of 00:00: [place] [facility] Genital Genital Disease Active 2019-09 Univers warts warts 2-04 ity of 00:00: [place] [facility] Vaginal Vaginal Disease Active Univers yeast yeast 8-21 ity of infection infection 00:00: Arturo fitzgerald Medical Branch Vaginal Vaginal Disease Active Univers itching itching 8-21 ity of 00:00: [place] 00 Medical Branch Urinary Urinary Disease Active Univers urgency urgency 8-21 ity of 00:00: [place] [facility] Screening Screening Disease Active Uni vers for for 4-24 [place] of metabolic metabolic [place] 00 [place] Vaginal Vaginal Disease Active Univers discomfort discomfort 4-24 it y of 00:00: [place] [facility] Contracept Contracept Disease Active U nivers roz roz 3-14 ity of management management 00:00: [place] [facility] [place] Menopause Menopause Disease Active Uni vers 6-25 ity of 00:00: [place] [facility] Morbid Morbid Disease Active Univers obesity obesity 6-25 ity of 00:00: [place] [facility] Essential Essential Disease Active Uni vers hypertensi hypertensi 6-25 it y of on, benign on, benign 00:[place]: [place] [facility] [place] Generalize Generalize Disease Active U nivers d anxiety d anxiety 6-25 ity of disorder disorder 00:00: [place] [facility] Branch Depression Depression Disease Active U nivers 6-25 ity of 00:00: [place] 00 Medical Branch Allergies, Adverse Reactions, Alerts Allergy Allergy Status Severity Reaction(s) Onset Inactive Treating Comm ents Source Name Type Date Date Clinician Mesna - Propensi Active Intraven ty to 5-17 ous adverse 00:00: reaction 00 to drug name Propensi Active ty to 5-16 adverse 00:00: reaction 00 to drug Ibuprofe Propensi Active n - Oral ty to 3-14 adverse 00:00: reaction 00 to drug Ibuprofe Propensi Active n ty to 4-11 adverse 00:00: reaction 00 to drug HYDROCHL DRUG Active Unknown-Cmnt Un rohit OROTHIAZ INGREDI 4-04 ity of PEARL 00:00: [place] [facility] Branch Hydrochl Propensi Active Unknown - Severe Uni vers orothiaz ty to See comments 4-04 hyponatre ity of pearl adverse 00:00: el [place] reaction 00 Medical s Branch ASPIRIN- DRUG Active [place]elling Univer s ACETAMIN 8-06 ity of OPHEN-CA 00:00: [place] FFEINE 00 Medical Branch IBUPROFE DRUG Active Swelling Univer s N INGREDI 04-28 ity of 00:00: [place] 00 Medical Branch Aspirin- Propensi Active Swelling Univ ers Acetamin ty to 04-28 ity of ophen-Ca adverse 00:00: [place] ffeine reaction [facility] Branch Ibuprofe Propensi Active Swelling Univ ers n ty to 04-28 ity of adverse 00:00: [place] reaction Medical s [place] Social History Social Habit Start Date Stop Date Quantity Comments Source History [facility] University o f Alcohol Frequency [facility] edical [place] History [facility] University o f Alcohol Std [place] Medical Drinks Branch History [facility] o f Alcohol Binge [facility] al [place] Exposure to 2022-07-28 2022-08-07 Not sure University of SARS-CoV-2 00:00:00 11:38:00 [facility] (event) [place] Alcohol intake 2022-07-10 2022-07-10 Current drinker of Un iversity of 00:00:00 00:00:00 alcohol (finding) [facility] Tobacco use and 2022-04-11 2022-04-11 Smokeless tobacco Un iversity of exposure 00:00:00 00:00:00 non-user [facility] Alcohol Comment 2015-03-14 2015-03-14 occasionally Univers ity of 00:00:00 00:00:00 [facility] Sex Ass[birth year] At [birth year] Universit y of 00:00:00 00:00:00 [facility] Smoking Status Start Date Stop Date Source Never smoked tobacco [facility] Medications Ordered Filled Start Stop Current Ordering Indication Dosage Frequency Signature Comments Components Source Medication Medication Date Date Medication? Clinician (SIG) Name Name conjugated 2021-09- Yes [id number] 1g Insert 1 g Univers estrogens 0-18 10-19 into ity of (PREMARIN) 00:00: 04:59 [place] 0.625 00 :00 bedtime. Medical mg/gram Branch vaginal cream conjugated 2021-09- Yes [id number] 1g Insert 1 g Univers estrogens 0-18 10-19 into ity of (PREMARIN) 00:00: 04:59 [place] 0.625 00 :00 bedtime. Medical mg/gram Branch vaginal cream conjugated 2021-09- Yes [id number] 1g Insert 1 g Univers estrogens 0-18 10-19 into ity of (PREMARIN) 00:00: 04:59 [place] 0.625 00 :00 bedtime. Medical mg/gram Branch vaginal cream conjugated 2021-09- Yes [id number] 1g Insert 1 g Univers estrogens 0-18 10-19 into ity of (PREMARIN) 00:00: 04:59 [place] 0.625 00 :00 bedtime. Medical mg/gram Branch vaginal cream conjugated 2021-09- Yes [id number] 1g Insert 1 g Univers estrogens 0-18 10-19 into ity of (PREMARIN) 00:00: 04:59 [place] 0.625 00 :00 bedtime. Medical mg/gram Branch vaginal cream Dose No Unknown 8-10 00:00: 00 Dose No Unknown 8-10 00:00: 00 Dose No Unknown 8-10 00:00: 00 penicillin 2021- No [id number] 2.410 U nivers g 03-29 ity of benzathine 14:00: 13:59 [place] (BICILLIN 00 :00 Medical L-A) Branch injection 2.4 Million Units penicillin 2021- No [id number] 2.410 2.4 U nivers g 03-29 Million ity of benzathine 14:00: 13:59 [place] (BICILLIN 00 :00 [facility] Med[facility] L-A) lar, Branch injection QWEEKLY, 3 2.4 Million doses, Units First dose on Sat03/29/22 at 0900, Last dose on Sat04/12/22 at 0900, LIN
Re ason for Anti-Infec tive: Documented Infection< br>Documen luis miguel Infection Site: Blood
D uration of Therapy: Other (see Comments) penicillin 2021- No [id number] 2.410 U nivers g 03-29-20 ity of benzathine 14:00: 19:51 [place] (BICILLIN 00 :00 Medical L-A) Branch injection 2.4 Million Units penicillin 2021- No [id number] 2.410 2.4 U nivers g 03-29 07-20 Million ity of benzathine 14:00: 19:51 [place] (BICILLIN 00 :00 [facility]amus[facility] Medi tacho L-A) lar, Branch injection QWEEKLY, 3 2.4 Million doses, Units First dose on Mel 03/29/22 at 0900, Last dose on Mel 04/12/22 at 0900, LIN
Re ason for Anti-Infec tive: Documented Infection< br>Documen luis miguel Infection Site: Blood
D uration of Therapy: Other (see Comments) imiquimod Yes [id number] 1{packe Apply 1 Univers (ALDARA) 5 6-24 t} Each to ity of % cream 00:00: area(s) [place] 00 every Medical Saturday, Branch Saturday and Saturday. imiquimod Yes [id number] 1{packe Apply 1 Univers (ALDARA) 5 6-24 t} Each to ity of % cream 00:00: area(s) [place] 00 every Medical Saturday, Branch Saturday and Saturday. imiquimod Yes [id number] 1{packe Apply 1 Univers (ALDARA) 5 6-24 t} Each to ity of % cream 00:00: area(s) [place] 00 every Medical Saturday, Branch Saturday and Saturday. imiquimod Yes [id number] 1{packe Apply 1 Univers (ALDARA) 5 6-24 t} Each to ity of % cream 00:00: area(s) [place] 00 every Medical Saturday, Branch Saturday and Saturday. imiquimod Yes [id number] 1{packe Apply 1 Univers (ALDARA) 5 6-24 t} Each to ity of % cream 00:00: area(s) [place] 00 every Medical Saturday, Branch Saturday and Saturday. imiquimod Yes [id number] 1{packe Apply 1 Univers (ALDARA) 5 6-24 t} Each to ity of % cream 00:00: area(s) [place] 00 every Medical Saturday, Branch Saturday and Saturday. imiquimod 2022-0 Yes [id number] 1{packe Apply 1 Univers (ALDARA) 5 6-24 t} Each to ity of % cream 00:00: area(s) [place] 00 every Medical Saturday, Branch Saturday and Saturday. imiquimod 2021-0 Yes [id number] 1{packe Apply 1 Univers (ALDARA) 5 6-24 t} Each to ity of % cream 00:00: area(s) [place] 00 every Medical Saturday, Branch Saturday and Saturday. imiquimod 2021-0 Yes [id number] 1{packe Apply 1 Univers (ALDARA) 5 6-24 t} Each to ity of % cream 00:00: area() [place] 00 every Medical Saturday, Branch Saturday and Saturday. imiquimod 2021-0 Yes [id number] 1{packe Apply 1 Univers (ALDARA) 5 6-24 t} Each to ity of % cream 00:00: area() [place] 00 every Medical Saturday, Branch Saturday and Saturday. imiquimod 2021-0 Yes [id number] 1{packe Apply 1 Univers (ALDARA) 5 6-24 t} Each to ity of % cream 00:00: area() [place] 00 every Medical Saturday, Branch Saturday and Saturday. imiquimod 2021-0 Yes [id number] 1{packe Apply 1 Univers (ALDARA) 5 6-24 t} Each to ity of % cream 00:00: area() [place] 00 every Medical Saturday, Branch Saturday and Saturday. hydrOXYzine 0 Yes 25mg Take 25 mg Univers (ATARAX) 25 6-23 by mouth ity of mg tablet 14:56: every 6 [place] [address] (six) Medical hours. Branch hydralAZINE 2021-0 Yes 50mg Take 50 mg Univers 50 mg 6-23 by mouth 2 ity of tablet 14:56: (two) [place] [address] times Medical daily. Branch mirtazapine 0 Yes 30mg Take 30 mg Univers 30 mg 6-23 by mouth ity of tablet 14:56: at [place] [address] bedtime. Medical Branch busPIRone 2021-0 Yes 10mg Take 10 mg Un rohit 10 mg 6-23 by mouth 2 ity of tablet 14:56: (two) [place] [address] times Medical daily. Branch METOPROLOL 2022-0 Yes Take by Univ ers TARTRATE 6-23 mouth. ity of ORAL 14:56: [place] [address] Medical Branch hydrOXYzine 2-0 Yes 25mg Take 25 mg Univers (ATARAX) 25 6-23 by mouth ity of mg tablet 14:56: every 6 [place] [address] (six) Medical hours. Branch hydralAZINE 2022-0 Yes 50mg Take 50 mg Univers 50 mg 6-23 by mouth 2 ity of tablet 14:56: (two) [place] [address] times Medical daily. Branch mirtazapine 2022-0 Yes 30mg Take 30 mg Univers 30 mg 6-23 by mouth ity of tablet 14:56: at [place] [address] bedtime. Medical Branch busPIRone 2-0 Yes 10mg Take 10 mg Un rohit 10 mg 6-23 by mouth 2 ity of tablet 14:56: (two) [place] [address] times Medical daily. Branch METOPROLOL 2-0 Yes Take by Univ ers TARTRATE 6-23 mouth. ity of ORAL 14:56: [place] [address] Medical Branch hydrOXYzine 2-0 Yes 25mg Take 25 mg Univers (ATARAX) 25 6-23 by mouth ity of mg tablet 14:56: every 6 [place] [address] (six) Medical hours. Branch hydralAZINE 2-0 Yes 50mg Take 50 mg Univers 50 mg 6-23 by mouth 2 ity of tablet 14:56: (two) [place] [address] times Medical daily. Branch mirtazapine 2-0 Yes 30mg Take 30 mg Univers 30 mg 6-23 by mouth ity of tablet 14:56: at [place] [address] bedtime. Medical Branch busPIRone 2022-0 Yes 10mg Take 10 mg Un rohit 10 mg 6-23 by mouth 2 ity of tablet 14:56: (two) [place] [address] times Medical daily. Branch METOPROLOL 2022-0 Yes Take by Univ ers TARTRATE 6-23 mouth. ity of ORAL 14:56: [place] [address] Medical Branch hydrOXYzine 2022-0 Yes 25mg Take 25 mg Univers (ATARAX) 25 6-23 by mouth ity of mg tablet 14:56: every 6 [place] [address] (six) Medical hours. Branch hydralAZINE 2022-0 Yes 50mg Take 50 mg Univers 50 mg 6-23 by mouth 2 ity of tablet 14:56: (two) [place] [address] times Medical daily. Branch mirtazapine 2022-0 Yes 30mg Take 30 mg Univers 30 mg 6-23 by mouth ity of tablet 14:56: at [place] [address] bedtime. Medical Branch busPIRone 2022-0 Yes 10mg Take 10 mg Un rohit 10 mg 6-23 by mouth 2 ity of tablet 14:56: (two) [place] [address] times Medical daily. Branch METOPROLOL 2022-0 Yes Take by Univ ers TARTRATE 6-23 mouth. ity of ORAL 14:56: [place] [address] Medical Branch hydrOXYzine 2-0 Yes 25mg Take 25 mg Univers (ATARAX) 25 6-23 by mouth ity of mg tablet 14:56: every 6 [place] [address] (six) Medical hours. Branch hydralAZINE 2022-0 Yes 50mg Take 50 mg Univers 50 mg 6-23 by mouth 2 ity of tablet 14:56: (two) [place] [address] times Medical daily. Branch mirtazapine 2-0 Yes 30mg Take 30 mg Univers 30 mg 6-23 by mouth ity of tablet 14:56: at [place] [address] bedtime. Medical Branch busPIRone 2022-0 Yes 10mg Take 10 mg Un rohit 10 mg 6-23 by mouth 2 ity of tablet 14:56: (two) [place] [address] times Medical daily. Branch METOPROLOL 2022-0 Yes Take by Univ ers TARTRATE 6-23 mouth. ity of ORAL 14:56: [place] [address] Medical Branch hydrOXYzine 2022-0 Yes 25mg Take 25 mg Univers (ATARAX) 25 6-23 by mouth ity of mg tablet 14:56: every 6 [place] [address] (six) Medical hours. Branch hydralAZINE 2022-0 Yes 50mg Take 50 mg Univers 50 mg 6-23 by mouth 2 ity of tablet 14:56: (two) [place] [address] times Medical daily. Branch mirtazapine 2022-0 Yes 30mg Take 30 mg Univers 30 mg 6-23 by mouth ity of tablet 14:56: at [place] [address] bedtime. Medical Branch busPIRone 2022-0 Yes 10mg Take 10 mg Un rohit 10 mg 6-23 by mouth 2 ity of tablet 14:56: (two) [place] [address] times Medical daily. Branch METOPROLOL 2022-0 Yes Take by Univ ers TARTRATE 6-23 mouth. ity of ORAL 14:56: [place] [address] Medical Branch hydrOXYzine 2022-0 Yes 25mg Take 25 mg Univers (ATARAX) 25 6-23 by mouth ity of mg tablet 14:56: every 6 [place] [address] (six) Medical hours. Branch hydralAZINE 2022-0 Yes 50mg Take 50 mg Univers 50 mg 6-23 by mouth 2 ity of tablet 14:56: (two) [place] [address] times Medical daily. Branch mirtazapine 2022-0 Yes 30mg Take 30 mg Univers 30 mg 6-23 by mouth ity of tablet 14:56: at [place] [address] bedtime. Medical Branch busPIRone 2022-0 Yes 10mg Take 10 mg Un rohit 10 mg 6-23 by mouth 2 ity of tablet 14:56: (two) [place] [address] times Medical daily. Branch METOPROLOL 2022-0 Yes Take by Univ ers TARTRATE 6-23 mouth. ity of ORAL 14:56: [place] [address] Medical Branch hydrOXYzine 2022-0 Yes 25mg Take 25 mg Univers (ATARAX) 25 6-23 by mouth ity of mg tablet 14:56: every 6 [place] [address] (six) Medical hours. Branch hydralAZINE 2022-0 Yes 50mg Take 50 mg Univers 50 mg 6-23 by mouth 2 ity of tablet 14:56: (two) [place] [address] times Medical daily. Branch mirtazapine 2022-0 Yes 30mg Take 30 mg Univers 30 mg 6-23 by mouth ity of tablet 14:56: at [place] [address] bedtime. Medical Branch busPIRone 2022-0 Yes 10mg Take 10 mg Un rohit 10 mg 6-23 by mouth 2 ity of tablet 14:56: (two) [place] [address] times Medical daily. Branch METOPROLOL 2022-0 Yes Take by Univ ers TARTRATE 6-23 mouth. ity of ORAL 14:56: [place] [address] Medical Branch hydrOXYzine 2022-0 Yes 25mg Take 25 mg Univers (ATARAX) 25 6-23 by mouth ity of mg tablet 14:56: every 6 [place] [address] (six) Medical hours. Branch hydralAZINE 2022-0 Yes 50mg Take 50 mg Univers 50 mg 6-23 by mouth 2 ity of tablet 14:56: (two) [place] [address] times Medical daily. Branch mirtazapine 2022-0 Yes 30mg Take 30 mg Univers 30 mg 6-23 by mouth ity of tablet 14:56: at [place] [address] bedtime. Medical Branch busPIRone 2022-0 Yes 10mg Take 10 mg Un rohit 10 mg 6-23 by mouth 2 ity of tablet 14:56: (two) [place] [address] times Medical daily. Branch METOPROLOL 2022-0 Yes Take by Univ ers TARTRATE 6-23 mouth. ity of ORAL 14:56: [place] [address] Medical Branch hydrOXYzine 2022-0 Yes 25mg Take 25 mg Univers (ATARAX) 25 6-23 by mouth ity of mg tablet 14:56: every 6 [place] [address] (six) Medical hours. Branch hydralAZINE 2022-0 Yes 50mg Take 50 mg Univers 50 mg 6-23 by mouth 2 ity of tablet 14:56: (two) [place] [address] times Medical daily. Branch mirtazapine 2022-0 Yes 30mg Take 30 mg Univers 30 mg 6-23 by mouth ity of tablet 14:56: at [place] [address] bedtime. Medical Branch busPIRone 2022-0 Yes 10mg Take 10 mg Un rohit 10 mg 6-23 by mouth 2 ity of tablet 14:56: (two) [place] [address] times Medical daily. Branch METOPROLOL 2022-0 Yes Take by Univ ers TARTRATE 6-23 mouth. ity of ORAL 14:56: [place] [address] Medical Branch hydrOXYzine 2022-0 Yes 25mg Take 25 mg Univers (ATARAX) 25 6-23 by mouth ity of mg tablet 14:56: every 6 [place] [address] (six) Medical hours. Branch hydralAZINE 2022-0 Yes 50mg Take 50 mg Univers 50 mg 6-23 by mouth 2 ity of tablet 14:56: (two) [place] [address] times Medical daily. Branch mirtazapine 2022-0 Yes 30mg Take 30 mg Univers 30 mg 6-23 by mouth ity of tablet 14:56: at [place] [address] bedtime. Medical Branch busPIRone 2022-0 Yes 10mg Take 10 mg Un rohit 10 mg 6-23 by mouth 2 ity of tablet 14:56: (two) [place] [address] times Medical daily. Branch METOPROLOL 2022-0 Yes Take by Univ ers TARTRATE 6-23 mouth. ity of ORAL 14:56: [place] [address] Medical Branch hydrOXYzine 2021-0 Yes 25mg Take 25 mg Univers (ATARAX) 25 6-23 by mouth ity of mg tablet 14:56: every 6 [place] [address] (six) Medical hours. Branch hydralAZINE 2021-0 Yes 50mg Take 50 mg Univers 50 mg 6-23 by mouth 2 ity of tablet 14:56: (two) [place] [address] times Medical daily. Branch mirtazapine 2021-0 Yes 30mg Take 30 mg Univers 30 mg 6-23 by mouth ity of tablet 14:56: at [place] [address] bedtime. Medical Branch busPIRone 2021-0 Yes 10mg Take 10 mg Un rohit 10 mg 6-23 by mouth 2 ity of tablet 14:56: (two) [place] [address] times Medical daily. Branch METOPROLOL 2021-0 Yes Take by Univ ers TARTRATE 6-23 mouth. ity of ORAL 14:56: [place] [address] Medical Branch Dose 2021-0 No Unknown 5-24 00:00: 00 buspirone 2021-0 No 3mg 10 mg 5-17 tablet 00:00: 00 Dose 2021-0 No Unknown 5-17 00:00: 00 Dose 2021-0 No Unknown 5-17 00:00: 00 acyclovir 2021-0 Yes TAKE 1 Univer s 400 mg 5-05 TABLET BY ity of tablet 00:00: MOUTH [place] 00 TWICE A Medical DAY FOR 1 Branch WEEK, THEN 1 TABLET BY MOUTH EVERY DAY FOR 1 WEEK acyclovir 2021-0 Yes TAKE 1 Univer s 400 mg 5-05 TABLET BY ity of tablet 00:00: MOUTH [place] 00 TWICE A Medical DAY FOR 1 Branch WEEK, THEN 1 TABLET BY MOUTH EVERY DAY FOR 1 WEEK acyclovir 2021-0 Yes TAKE 1 Univer s 400 mg 5-05 TABLET BY ity of tablet 00:00: MOUTH [place] 00 TWICE A Medical DAY FOR 1 Branch WEEK, THEN 1 TABLET BY MOUTH EVERY DAY FOR 1 WEEK acyclovir 2021-0 Yes TAKE 1 Univer s 400 mg 5-05 TABLET BY ity of tablet 00:00: MOUTH [place] 00 TWICE A Medical DAY FOR 1 Branch WEEK, THEN 1 TABLET BY MOUTH EVERY DAY FOR 1 WEEK acyclovir 2021-0 Yes TAKE 1 Univer s 400 mg 5-05 TABLET BY ity of tablet 00:00: MOUTH [place] 00 TWICE A Medical DAY FOR 1 Branch WEEK, THEN 1 TABLET BY MOUTH EVERY DAY FOR 1 WEEK acyclovir 2021-0 Yes TAKE 1 Univer s 400 mg 5-05 TABLET BY ity of tablet 00:00: MOUTH 00 TWICE A Medical DAY FOR 1 Branch WEEK, THEN 1 TABLET BY MOUTH EVERY DAY FOR 1 WEEK acyclovir 2021-0 Yes TAKE 1 Univer s 400 mg 5-05 TABLET BY ity of tablet 00:00: MOUTH [place] 00 TWICE A Medical DAY FOR 1 Branch WEEK, THEN 1 TABLET BY MOUTH EVERY DAY FOR 1 WEEK acyclovir 0 Yes TAKE 1 Univer s 400 mg 5-05 TABLET BY ity of tablet 00:00: MOUTH 00 TWICE A Medical DAY FOR 1 Branch WEEK, THEN 1 TABLET BY MOUTH EVERY DAY FOR 1 WEEK acyclovir 2021-0 Yes TAKE 1 Univer s 400 mg 5-05 TABLET BY ity of tablet 00:00: MOUTH 00 TWICE A Medical DAY FOR 1 Branch WEEK, THEN 1 TABLET BY MOUTH EVERY DAY FOR 1 WEEK acyclovir 0 Yes TAKE 1 Univer s 400 mg 5-05 TABLET BY ity of tablet 00:00: MOUTH 00 TWICE A Medical DAY FOR 1 Branch WEEK, THEN 1 TABLET BY MOUTH EVERY DAY FOR 1 WEEK acyclovir 2021-0 Yes TAKE 1 Univer s 400 mg 5-05 TABLET BY ity of tablet 00:00: MOUTH 00 TWICE A Medical DAY FOR 1 Branch WEEK, THEN 1 TABLET BY MOUTH EVERY DAY FOR 1 WEEK acyclovir 2021-0 Yes TAKE 1 Univer s 400 mg 5-05 TABLET BY ity of tablet 00:00: MOUTH 00 TWICE A Medical DAY FOR 1 Branch WEEK, THEN 1 TABLET BY MOUTH EVERY DAY FOR 1 WEEK diclofenac 2021-0 No 1% 1 % topical 4-27 gel 00:00: 00 losartan 2-0 No 1mg 100 mg 4-27 tablet 00:00: 00 amlodipine 2022-0 No 1mg 10 mg 4-27 tablet 00:00: 00 losartan 2022-0 No 1mg 100 mg 4-27 tablet 00:00: 00 amlodipine 2022-0 No 1mg 10 mg 4-27 tablet 00:00: 00 hydralazine 2-0 No 1mg 50 mg 4-27 tablet 00:00: 00 metoprolol 2022-0 No 1mg tartrate 50 4-27 mg tablet 00:00: 00 metoprolol 2022-0 No 1mg tartrate 50 4-27 mg tablet 00:00: 00 hydralazine 2022-0 No 1mg 50 mg 4-27 tablet 00:00: 00 omeprazole 2022-0 No 1mg 40 mg 4-27 capsule,del 00:00: ayed 00 release omeprazole 2-0 No 1mg 40 mg 4-27 capsule,del 00:00: ayed 00 release metformin 2-0 No 1mg ER 500 mg 4-25 24 hr 00:00: tablet,exte 00 nded release (gastric) metformin 2-0 No 1mg ER 500 mg 4-25 24 hr 00:00: tablet,exte 00 nded release (gastric) amLODIPine 2-0 Yes 10mg Take 1 Unive rs 10 mg 4-20 tablet by ity of tablet 00:00: mouth [place] 00 daily. Medical Branch amLODIPine 2-0 Yes 10mg Take 1 Unive rs 10 mg 4-20 tablet by ity of tablet 00:00: mouth [place] 00 daily. Medical Branch amLODIPine 2022-0 Yes 10mg Take 1 Unive rs 10 mg 4-20 tablet by ity of tablet 00:00: mouth [place] 00 daily. Medical Branch amLODIPine 2022-0 Yes 10mg Take 1 Unive rs 10 mg 4-20 tablet by ity of tablet 00:00: mouth [place] 00 daily. Medical Branch amLODIPine 2022-0 Yes 10mg Take 1 Unive rs 10 mg 4-20 tablet by ity of tablet 00:00: mouth [place] 00 daily. Medical Branch amLODIPine 2022-0 Yes 10mg Take 1 Unive rs 10 mg 4-20 tablet by ity of tablet 00:00: mouth [place] 00 daily. Medical Branch amLODIPine 2022-0 Yes 10mg Take 1 Unive rs 10 mg 4-20 tablet by ity of tablet 00:00: mouth [place] 00 daily. Medical Branch amLODIPine 2022-0 Yes 10mg Take 1 Unive rs 10 mg 4-20 tablet by ity of tablet 00:00: mouth [place] 00 daily. Medical Branch amLODIPine 2022-0 Yes 10mg Take 1 Unive rs 10 mg 4-20 tablet by ity of tablet 00:00: mouth 00 daily. Medical Branch amLODIPine 2-0 Yes 10mg Take 1 Unive rs 10 mg 4-20 tablet by ity of tablet 00:00: mouth 00 daily. Medical Branch amLODIPine 2022-0 Yes 10mg Take 1 Unive rs 10 mg 4-20 tablet by ity of tablet 00:00: mouth 00 daily. Medical Branch amLODIPine 2022-0 Yes 10mg Take 1 Unive rs 10 mg 4-20 tablet by ity of tablet 00:00: mouth 00 daily. Medical Branch olanzapine 2-0 No 1mg 10 mg 4-19 tablet 00:00: 00 simethicone 2022-0 No 1mg 180 mg 4-19 capsule 00:00: 00 spironolact 2022-0 No 1mg one 25 mg 3-23 tablet 00:00: 00 furosemide 2022-0 No 1mg 20 mg 3-23 tablet 00:00: 00 Dose 2022-0 No Unknown 3-23 00:00: 00 spironolact 2022-0 No 1mg one 25 mg 3-23 tablet 00:00: 00 Dose 2022-0 No Unknown 3-23 00:00: 00 Dose 2022-0 No Unknown 3-23 00:00: 00 Dose 2022-0 No Unknown 3-23 00:00: 00 Dose 2022-0 No Unknown 3-23 00:00: 00 Dose 2022-0 No Unknown 3-23 00:00: 00 clotrimazol 2022-0 No 1% e 1 % 3-14 vaginal 00:00: cream 00 metronidazo 2022-0 No 1mg le 500 mg 3-14 tablet 00:00: 00 Dose 2022-0 No Unknown 3-14 00:00: 00 Dose 2022-0 No Unknown 3-14 00:00: 00 Dose 2022-0 No Unknown 3-14 00:00: 00 Dose 2022-0 No Unknown 3-14 00:00: 00 Dose 2022-0 No Unknown 3-14 00:00: 00 Dose 2022-0 No Unknown 3-14 00:00: 00 Dose 2022-0 No Unknown 3-14 00:00: 00 Dose 2022-0 No Unknown 3-14 00:00: 00 Dose 2022-0 No Unknown 3-14 00:00: 00 Dose 2-0 No Unknown 3-14 00:00: 00 Dose 2-0 No Unknown 3-14 00:00: 00 Dose 2-0 No Unknown 3-14 00:00: 00 Dose 2-0 No Unknown 3-14 00:00: 00 Dose 2-0 No Unknown 3-14 00:00: 00 Dose 2-0 No Unknown 3-14 00:00: 00 Dose 2-0 No Unknown 3-14 00:00: 00 Dose 2-0 No Unknown 3-14 00:00: 00 Dose 2-0 No Unknown 3-14 00:00: 00 Dose 2-0 No Unknown 3-14 00:00: 00 Dose 2-0 No Unknown 3-14 00:00: 00 Dose 2021-0 No Unknown 3-14 00:00: 00 Dose 2021-0 No Unknown 3-14 00:00: 00 Dose 2021-0 No Unknown 3-14 00:00: 00 diclofenac 2021-0 No 1% 1 % topical 2-03 gel 00:00: 00 Dose 2021-0 No Unknown 2-03 00:00: 00 Dose 2021-0 No Unknown 2-03 00:00: 00 Dose 2-0 No Unknown 2-03 00:00: 00 Dose 2021-0 No Unknown 2-03 00:00: 00 ofloxacin 2021-0 No 3% 0.3 % eye 2-01 drops 00:00: 00 ofloxacin 2021-0 No 3% 0.3 % eye 2-01 drops 00:00: 00 Dose 2021-0 No Unknown 2-01 00:00: 00 neomycin-po 2021-0 No 4mg/mL- lymyxin-hyd 2-01 unit/mL rocort 3.5 00:00: -% mg-10,000 00 unit/mL-1 % ear drops,susp Dose 2021-0 No Unknown 2-01 00:00: 00 Dose 2021-0 No Unknown 2-01 00:00: 00 Dose 2-0 No Unknown 2-01 00:00: 00 Dose 2021-0 No Unknown 2-01 00:00: 00 olopatadine 2021-0 No 3% 0.2 % eye 1-11 drops 00:00: 00 olopatadine 2022-0 No 3% 0.2 % eye 1-11 drops 00:00: 00 polymyxin B 2-0 No 31 sulfate 1-11 mg/mL 10,000 00:00: unit-trimet 00 hoprim 1 mg/mL eye drops polymyxin B 2-0 No 31 sulfate 1-11 mg/mL 10,000 00:00: unit-trimet 00 hoprim 1 mg/mL eye drops loratadine 2-0 No 1mg 10 mg 1-11 tablet 00:00: 00 losartan 2022-0 No 1mg 100 mg 1-11 tablet 00:00: 00 hydroxyzine 2-0 No 1mg HCl 50 mg 1-11 tablet 00:00: 00 amlodipine 2-0 No 1mg 10 mg 1-11 tablet 00:00: 00 loratadine 2-0 No 1mg 10 mg 1-11 tablet 00:00: 00 metoprolol 2-0 No 1mg tartrate 50 1-11 mg tablet 00:00: 00 buspirone 2-0 No 3mg 10 mg 1-11 tablet 00:00: 00 hydralazine 2-0 No 1mg 50 mg 1-11 tablet 00:00: 00 mirtazapine 2-0 No 1mg 30 mg 1-11 tablet 00:00: 00 Effexor XR 2-0 No 1mg 75 mg 1-11 capsule,ext 00:00: ended 00 release Vitamin D2 2-0 No 1(50,00 1,250 mcg 1-11 0 unit) (50,000 00:00: unit) 00 capsule Bromfed DM 2-0 No 5mg/5 2 mg-30 1-11 mL mg-10 mg/5 00:00: mL oral 00 syrup polymyxin B 2020-1 No 31 sulfate 2-15 mg/mL 10,000 00:00: unit-trimet 00 hoprim 1 mg/mL eye drops polymyxin B 2020-1 No 31 sulfate 2-15 mg/mL 10,000 00:00: unit-trimet 00 hoprim 1 mg/mL eye drops prednisone 1-1 No 1mg 20 mg 2-15 tablet 00:00: 00 losartan 1-1 No 1mg 100 mg 2-15 tablet 00:00: 00 hydroxyzine 1-1 No 1mg HCl 50 mg 2-15 tablet 00:00: 00 amlodipine 2020-09 No 1mg 10 mg 2-15 tablet 00:00: 00 prednisone 2020-09 No 1mg 20 mg 2-15 tablet 00:00: 00 metronidazo 2020-09 No 1mg le 500 mg 2-15 tablet 00:00: 00 amoxicillin 2020-09 No 1mg 875 2-15 mg-potassiu 00:00: m 00 clavulanate 125 mg tablet metoprolol 2020-09 No 1mg tartrate 50 2-15 mg tablet 00:00: 00 buspirone 2020-09 No 3mg 10 mg 2-15 tablet 00:00: 00 hydralazine 2020-09 No 1mg 50 mg 2-15 tablet 00:00: 00 metronidazo 2020-09 No 1mg le 500 mg 2-15 tablet 00:00: 00 Dose 2020-09 No Unknown 2-15 00:00: 00 mirtazapine 2020-09 No 1mg 30 mg 2-15 tablet 00:00: 00 Effexor XR 2020-09 No 1mg 75 mg 2-15 capsule,ext 00:00: ended 00 release Vitamin D2 2020-09 No 1(50,00 1,250 mcg 2-15 0 unit) (50,000 00:00: unit) 00 capsule tobramycin 2020-09 No 1% 0.3 % eye 2-08 drops 00:00: 00 clindamycin 2020-09 No 1mg HCl 300 mg 2-08 capsule 00:00: 00 clindamycin 2020-09 No 1mg HCl 300 mg 2-08 capsule 00:00: 00 Dose 2020-09 No Unknown 2-03 00:00: 00 mupirocin 2 2020-09 No 1% % topical 2-03 ointment 00:00: 00 Dose 2020-09 No Unknown 0-26 00:00: 00 hydroxyzine 2020-09 No 1mg HCl 50 mg 0-26 tablet 00:00: 00 losartan 2020-09 No 1mg 100 mg 0-26 tablet 00:00: 00 amlodipine 2020-09 No 1mg 10 mg 0-26 tablet 00:00: 00 metoprolol 2020-09 No 1mg tartrate 50 0-26 mg tablet 00:00: 00 hydralazine 2021-1 No 1mg 50 mg 0-26 tablet 00:00: 00 buspirone 1-1 No 3mg 10 mg 0-26 tablet 00:00: 00 sulfamethox 1-1 No 1mg azole 800 0-26 mg-trimetho 00:00: prim 160 mg 00 tablet Dose 2020-1 No Unknown 0-26 00:00: 00 mirtazapine 1-1 No 1mg 30 mg 0-26 tablet 00:00: 00 Effexor XR 2020-1 No 1mg 75 mg 0-26 capsule,ext 00:00: ended 00 release Vitamin D2 2020-1 No 1(50,00 1,250 mcg 0-26 0 unit) (50,000 00:00: unit) 00 capsule triamcinolo 1-0 No 1% ne 8-25 acetonide 00:00: 0.025 % 00 topical cream triamcinolo 1-0 No 1% ne 8-25 acetonide 00:00: 0.025 % 00 topical cream amlodipine 1-0 No 1mg 10 mg 8-25 tablet 00:00: 00 hydroxyzine 1-0 No 1mg HCl 50 mg 8-25 tablet 00:00: 00 losartan 2021-0 No 1mg 100 mg 8-25 tablet 00:00: 00 hydroxyzine 1-0 No 1mg HCl 50 mg 8-25 tablet 00:00: 00 losartan 2021-0 No 1mg 100 mg 8-25 tablet 00:00: 00 amlodipine 1-0 No 1mg 10 mg 8-25 tablet 00:00: 00 buspirone 1-0 No 3mg 10 mg 8-25 tablet 00:00: 00 hydralazine 1-0 No 1mg 50 mg 8-25 tablet 00:00: 00 metoprolol 2021-0 No 1mg tartrate 50 8-25 mg tablet 00:00: 00 metoprolol 2021-0 No 1mg tartrate 50 8-25 mg tablet 00:00: 00 hydralazine 2021-0 No 1mg 50 mg 8-25 tablet 00:00: 00 buspirone 2021-0 No 3mg 10 mg 8-25 tablet 00:00: 00 mirtazapine 1-0 No 1mg 30 mg 8-25 tablet 00:00: 00 mirtazapine 2021-0 No 1mg 30 mg 8-25 tablet 00:00: 00 omeprazole 1-0 No 1mg 40 mg 8-25 capsule,del 00:00: ayed 00 release Dose 1-0 No Unknown 8-25 00:00: 00 Effexor XR 2021-0 No 1mg 75 mg 8-25 capsule,ext 00:00: ended 00 release Effexor XR 1-0 No 1mg 75 mg 8-25 capsule,ext 00:00: ended 00 release Vitamin D2 1-0 No 1(50,00 1,250 mcg 8-25 0 unit) (50,000 00:00: unit) 00 capsule Vitamin D2 1-0 No 1(50,00 1,250 mcg 8-25 0 unit) (50,000 00:00: unit) 00 capsule nitrofurant 1-0 No 1mg oin 8-19 macrocrysta 00:00: l 100 mg 00 capsule nitrofurant 1-0 No 1mg oin 8-06 macrocrysta 00:00: l 100 mg 00 capsule nystatin 1-0 No 1unit/g 100,000 7-13 victor manuel unit/gram 00:00: topical 00 cream prednisone 1-0 No 1mg 20 mg 7-13 tablet 00:00: 00 omeprazole 1-0 No 1mg 40 mg 7-13 capsule,del 00:00: ayed 00 release triamcinolo 1-0 No 1% ne 6-30 acetonide 00:00: 0.1 % 00 topical cream prednisone 1-0 No 1mg 20 mg 6-30 tablet 00:00: 00 amlodipine 1-0 No 1mg 10 mg 6-30 tablet 00:00: 00 azithromyci 1-0 No mg n 250 mg 6-30 tablet 00:00: 00 Bromfed DM 1-0 No 5mg/5 2 mg-30 6-30 mL mg-10 mg/5 00:00: mL oral 00 syrup Dose 1-0 No Unknown 6-24 00:00: 00 cetirizine 1-0 No 1mg 10 mg 6-24 tablet 00:00: 00 Dose 1-0 No Unknown 6-24 00:00: 00 Tessalon 1-0 No 1mg Perles 100 6-24 mg capsule 00:00: 00 [place] Saline 1-0 No 2% 0.65 % 5-21 nasal drops 00:00: 00 magnesium 1-0 No 2mg citrate 100 5-21 mg tablet 00:00: 00 diclofenac 1-0 No 1% 1 % topical 3-17 gel 00:00: 00 losartan 1-0 No 1mg 100 mg 3-17 tablet 00:00: 00 hydroxyzine 1-0 No 1mg HCl 50 mg 3-17 tablet 00:00: 00 pantoprazol 1-0 No 1mg e 40 mg 3-17 tablet,samanta 00:00: yed release 00 metoprolol 1-0 No 1mg tartrate 50 3-17 mg tablet 00:00: 00 buspirone 1-0 No 3mg 10 mg 3-17 tablet 00:00: 00 hydralazine 1-0 No 1mg 50 mg 3-17 tablet 00:00: 00 mirtazapine 2020-0 No 1mg 30 mg 3-17 tablet 00:00: 00 fluticasone 2020-0 No 1mcg/ac propionate 3-17 tuation 50 00:00: mcg/actuati 00 on nasal spray,suspe nsion Vitamin D2 2020-0 No 1(50,00 1,250 mcg 3-17 0 unit) (50,000 00:00: unit) 00 capsule nitrofurant 2019-1 No 1mg oin 1-23 macrocrysta 00:00: l 100 mg 00 capsule fluticasone 2019-0 No 1mcg/ac propionate 8-18 tuation 50 00:00: mcg/actuati 00 on nasal spray,suspe nsion diclofenac 2019-0 No 1% 1 % topical 7-23 gel 00:00: 00 pantoprazol 2020-0 No 1mg e 40 mg 7-23 tablet,samanta 00:00: yed release 00 hydroxyzine 2020-0 No 1mg HCl 50 mg 7-23 tablet 00:00: 00 losartan 2020-0 No 1mg 100 mg 7-23 tablet 00:00: 00 buspirone 2020-0 No 3mg 10 mg 7-23 tablet 00:00: 00 hydralazine 2020-0 No 1mg 50 mg 7-23 tablet 00:00: 00 metoprolol 2020-0 No 1mg tartrate 50 7-23 mg tablet 00:00: 00 mirtazapine 2020-0 No 1mg 30 mg 7-23 tablet 00:00: 00 Vitamin D2 2020-0 No 1(50,00 1,250 mcg 7-23 0 unit) (50,000 00:00: unit) 00 capsule diclofenac 2020-0 No 1% 1 % topical 3-25 gel 00:00: 00 clotrimazol 2020-0 No 1% e 1 % 3-25 vaginal 00:00: cream 00 losartan 2020-0 No 1mg 100 mg 3-25 tablet 00:00: 00 pantoprazol 2020-0 No 1mg e 40 mg 3-25 tablet,samanta 00:00: yed release 00 hydroxyzine 2020-0 No 1mg HCl 50 mg 3-25 tablet 00:00: 00 metoprolol 2020-0 No 1mg tartrate 50 3-25 mg tablet 00:00: 00 buspirone 2020-0 No 3mg 10 mg 3-25 tablet 00:00: 00 hydralazine 2020-0 No 1mg 50 mg 3-25 tablet 00:00: 00 mirtazapine 2020-0 No 1mg 30 mg 3-25 tablet 00:00: 00 fluconazole 2020-0 No 1mg 150 mg 3-25 tablet 00:00: 00 Vitamin D2 2020-0 No 1(50,00 1,250 mcg 3-25 0 unit) (50,000 00:00: unit) 00 capsule fluconazole 2020-0 No 1mg 150 mg 1-30 tablet 00:00: 00 hydroxyzine 2020-0 No 1mg HCl 50 mg 1-22 tablet 00:00: 00 losartan 2020-0 No 1mg 100 mg 1-22 tablet 00:00: 00 pantoprazol 2020-0 No 1mg e 40 mg 1-22 tablet,samanta 00:00: yed release 00 buspirone 2020-0 No 3mg 10 mg 1-22 tablet 00:00: 00 hydralazine 2020-0 No 1mg 50 mg 1-22 tablet 00:00: 00 metoprolol 2020-0 No 1mg tartrate 50 1-22 mg tablet 00:00: 00 mirtazapine 2020-0 No 1mg 30 mg 1-22 tablet 00:00: 00 hydroxyzine 2020-0 No 1mg HCl 50 mg 1-19 tablet 00:00: 00 buspirone 2020-0 No 3mg 10 mg 1-19 tablet 00:00: 00 hydralazine 2020-0 No 1mg 50 mg 1-19 tablet 00:00: 00 metoprolol 2020-0 No 1mg tartrate 50 1-19 mg tablet 00:00: 00 mirtazapine 2020-0 No 1mg 30 mg 1-19 tablet 00:00: 00 hydroxyzine 2019-1 No 1mg HCl 50 mg 1-26 tablet 00:00: 00 metoprolol 2019-1 No 1mg tartrate 50 1-26 mg tablet 00:00: 00 hydralazine 2019-1 No 1mg 50 mg 1-26 tablet 00:00: 00 buspirone 2019-1 No 3mg 10 mg 1-26 tablet 00:00: 00 mirtazapine 2019-1 No 1mg 30 mg 1-26 tablet 00:00: 00 metoprolol 2019-1 No 1mg tartrate 50 0-16 mg tablet 00:00: 00 metoprolol 2019-1 No 1mg tartrate 50 0-16 mg tablet 00:00: 00 fluconazole 2019-1 No 1mg 150 mg 0-16 tablet 00:00: 00 fluconazole 2019-0 No 1mg 150 mg 9-12 tablet 00:00: 00 hydroxyzine 2019-0 No 1mg HCl 50 mg 9-10 tablet 00:00: 00 pantoprazol 2019-0 No 1mg e 40 mg 9-10 tablet,samanta 00:00: yed release 00 metronidazo 2019-0 No 1mg le 500 mg 9-10 tablet 00:00: 00 metoprolol 2019-0 No 1mg tartrate 50 9-10 mg tablet 00:00: 00 hydralazine 2019-0 No 1mg 50 mg 9-10 tablet 00:00: 00 buspirone 2019-0 No 3mg 10 mg 9-10 tablet 00:00: 00 mirtazapine 2019-0 No 1mg 30 mg 9-10 tablet 00:00: 00 prednisone 2019-0 No 1mg 20 mg 7-12 tablet 00:00: 00 pantoprazol 2019-0 No 1mg e 40 mg 7-09 tablet,samanta 00:00: yed release 00 hydroxyzine 2019-0 No 1mg HCl 50 mg 7-09 tablet 00:00: 00 buspirone 2019-0 No 3mg 10 mg 7-09 tablet 00:00: 00 hydralazine 2019-0 No 1mg 50 mg 7-09 tablet 00:00: 00 metoprolol 2019-0 No 1mg tartrate 50 7-09 mg tablet 00:00: 00 mirtazapine 2019-0 No 1mg 30 mg 7-09 tablet 00:00: 00 cyclobenzap 2019-0 No 1mg rine 5 mg 7-09 tablet 00:00: 00 Vitamin D2 2019-0 No 1unit 50,000 unit 7-09 capsule 00:00: 00 Vitamin D2 2019-0 No 1(50,00 1,250 mcg 7-09 0 unit) (50,000 00:00: unit) 00 capsule pantoprazol 2019-0 No 1mg e 40 mg 5-02 tablet,samanta 00:00: yed release 00 mirtazapine 2019-0 No 1mg 30 mg 5-01 tablet 00:00: 00 hydroxyzine 2019-0 No 1mg HCl 50 mg 4-24 tablet 00:00: 00 buspirone 2019-0 No 3mg 10 mg 4-24 tablet 00:00: 00 hydralazine 2019-0 No 1mg 50 mg 4-24 tablet 00:00: 00 metoprolol 2019-0 No 1mg tartrate 50 4-24 mg tablet 00:00: 00 metronidazo 2019-0 No 1mg le 500 mg 4-24 tablet 00:00: 00 fluconazole 2019-0 No mg 150 mg 4-24 tablet 00:00: 00 Vitamin D2 2019-0 No 1unit 50,000 unit 4-24 capsule 00:00: 00 hydroxyzine 2019-0 No 1mg HCl 50 mg 1-30 tablet 00:00: 00 metoprolol 2019-0 No 1mg tartrate 50 1-30 mg tablet 00:00: 00 hydralazine 2019-0 No 1mg 50 mg 1-30 tablet 00:00: 00 buspirone 2019-0 No 3mg 10 mg 1-30 tablet 00:00: 00 mirtazapine 2019-0 No 1mg 30 mg 1-30 tablet 00:00: 00 Vitamin D2 2019-0 No 1unit 50,000 unit 1-30 capsule 00:00: 00 Vitamin C 2019-0 No 1mg 1,000 mg 1-08 tablet 00:00: 00 levothyroxi 2019-0 No 1mcg ne 112 mcg 1-08 tablet 00:00: 00 mirtazapine 2018-1 No 1mg 30 mg 2-12 tablet 00:00: 00 Vitamin D2 2018-1 No 1unit 50,000 unit 2-05 capsule 00:00: 00 hydroxyzine 2018-1 No 1mg HCl 50 mg 2-04 tablet 00:00: 00 metoprolol 2018-1 No 1mg tartrate 50 2-04 mg tablet 00:00: 00 hydralazine 2018-1 No 1mg 50 mg 2-04 tablet 00:00: 00 buspirone 2018-1 No 3mg 10 mg 2-04 tablet 00:00: 00 pantoprazol 2018-1 No 1mg e 40 mg 0-31 tablet,samanta 00:00: yed release 00 cyclobenzap 2018-1 No 1mg rine 5 mg 0-31 tablet 00:00: 00 ranitidine 2018-1 No 1mg 150 mg 0-31 tablet 00:00: 00 mirtazapine 2018-0 No 1mg 30 mg 9-25 tablet 00:00: 00 buspirone 2018-0 No 3mg 10 mg 9-11 tablet 00:00: 00 metoprolol 2018-0 No 1mg tartrate 50 9-11 mg tablet 00:00: 00 hydralazine 2018-0 No 1mg 50 mg 9-11 tablet 00:00: 00 cyclobenzap 2018-0 No 1mg rine 5 mg 9-11 tablet 00:00: 00 hydroxyzine 2018-0 No 1mg HCl 50 mg 9-11 tablet 00:00: 00 pantoprazol 2018-0 No 1mg e 40 mg 9-11 tablet,samanta 00:00: yed release 00 hydroxyzine 2018-0 No 1mg HCl 50 mg 7-10 tablet 00:00: 00 pantoprazol 2018-0 No 1mg e 40 mg 7-10 tablet,samanta 00:00: yed release 00 metoprolol 2018-0 No 1mg tartrate 7-10 100 mg 00:00: tablet 00 hydralazine 2018-0 No 1mg 25 mg 7-10 tablet 00:00: 00 buspirone 2018-0 No 2mg 10 mg 7-10 tablet 00:00: 00 alprazolam 2018-0 No 1mg 0.25 mg 7-09 tablet 00:00: 00 pantoprazol 2018-0 No 1mg e 40 mg 7-09 tablet,samanta 00:00: yed release 00 pantoprazol 2018-0 No 1mg e 40 mg 7-09 tablet,samanta 00:00: yed release 00 hydroxyzine 2018-0 No 1mg HCl 50 mg 5-07 tablet 00:00: 00 buspirone 2018-0 No 2mg 10 mg 5-07 tablet 00:00: 00 hydralazine 2018-0 No 1mg 25 mg 5-07 tablet 00:00: 00 metoprolol 2018-0 No 1mg tartrate 5-07 100 mg 00:00: tablet 00 amlodipine 2018-0 No 1mg 10 mg 5-07 tablet 00:00: 00 docusate 2018-0 No 1mg sodium 100 5-07 mg capsule 00:00: 00 hydroxyzine 2018-0 No 1mg HCl 50 mg 4-02 tablet 00:00: 00 hydroxyzine 2018-0 No 1mg HCl 50 mg 4-02 tablet 00:00: 00 metoprolol 2018-0 No 1mg tartrate 4-02 100 mg 00:00: tablet 00 hydralazine 2018-0 No 1mg 25 mg 4-02 tablet 00:00: 00 buspirone 2018-0 No 2mg 10 mg 4-02 tablet 00:00: 00 buspirone 2018-0 No 2mg 10 mg 4-02 tablet 00:00: 00 hydralazine 2018-0 No 1mg 25 mg 4-02 tablet 00:00: 00 metoprolol 2018-0 No 1mg tartrate 4-02 100 mg 00:00: tablet 00 amlodipine 2018-0 No 1mg 10 mg 4-02 tablet 00:00: 00 docusate 2018-0 No 1mg sodium 100 4-02 mg capsule 00:00: 00 docusate 2018-0 No 1mg sodium 100 4-02 mg capsule 00:00: 00 hydroxyzine 2018-0 No 1mg HCl 50 mg 3-21 tablet 00:00: 00 hydralazine 2018-0 No 1mg 25 mg 3-21 tablet 00:00: 00 metoprolol 2018-0 No 1mg tartrate 3-21 100 mg 00:00: tablet 00 buspirone 2018-0 No 1mg 10 mg 3-21 tablet 00:00: 00 buspirone 2018-0 No 1mg 10 mg 3-21 tablet 00:00: 00 docusate 2018-0 No 1mg sodium 100 3-21 mg capsule 00:00: 00 hydralazine 2018-0 No 1mg 25 mg 3-05 tablet 00:00: 00 amlodipine 2018-0 No 1mg 10 mg 3-05 tablet 00:00: 00 mirtazapine 2018-0 No 1mg 30 mg 3-05 tablet 00:00: 00 docusate 2018-0 No 1mg sodium 100 3-05 mg capsule 00:00: 00 paroxetine 2018-0 No 1mg 40 mg 1-22 tablet 00:00: 00 buspirone 2018-0 No 1mg 10 mg 1-22 tablet 00:00: 00 lisinopril 2018-0 No 1mg 20 1-22 mg-hydrochl 00:00: orothiazide 00 12.5 mg tablet metoprolol 2018-0 No 1mg tartrate 1-22 100 mg 00:00: tablet 00 metronidazo 2018-0 No 1mg le 500 mg 1-22 tablet 00:00: 00 hydroxyzine 2018-0 No 1mg HCl 50 mg 1-22 tablet 00:00: 00 omeprazole 2018-0 No 1mg 20 mg 1-22 capsule,del 00:00: ayed 00 release paroxetine 2017-1 No 15mg 20 mg 1-01 tablet 00:00: 00 hydroxyzine 2017-1 No 1mg HCl 50 mg 1-01 tablet 00:00: 00 lisinopril 2017-1 No 1mg 20 0-06 mg-hydrochl 00:00: orothiazide 00 12.5 mg tablet metoprolol 2017-1 No 1mg tartrate 50 0-06 mg tablet 00:00: 00 paroxetine 2017-0 No 15mg 20 mg 9-13 tablet 00:00: 00 hydroxyzine 2017-0 No 1mg HCl 50 mg 9-13 tablet 00:00: 00 paroxetine 2017-0 No 1mg 20 mg 7-19 tablet 00:00: 00 paroxetine 2017-0 No 1mg 20 mg 7-19 tablet 00:00: 00 hydroxyzine 2017-0 No 1mg HCl 25 mg 7-19 tablet 00:00: 00 hydroxyzine 2017-0 No 1mg HCl 50 mg 7-19 tablet 00:00: 00 lisinopril 2017-0 No 1mg 20 6-16 mg-hydrochl 00:00: orothiazide 00 12.5 mg tablet metoprolol 2017-0 No 1mg tartrate 50 6-16 mg tablet 00:00: 00 lisinopril 2017-0 No 1mg 20 mg 5-12 tablet 00:00: 00 metoprolol 2017-0 No 1mg tartrate 50 5-12 mg tablet 00:00: 00 citalopram 2017-0 No 51mg 20 mg 5-10 tablet 00:00: 00 hydroxyzine 2017-0 No 1mg HCl 25 mg 5-10 tablet 00:00: 00 trazodone 2017-0 No 51mg 100 mg 5-10 tablet 00:00: 00 citalopram 2017-0 No 51mg 20 mg 4-12 tablet 00:00: 00 hydroxyzine 2017-0 No 1mg HCl 25 mg 4-12 tablet 00:00: 00 hydroxyzine 2017-0 No 1mg HCl 25 mg 4-12 tablet 00:00: 00 trazodone 2017-0 No 51mg 100 mg 4-12 tablet 00:00: 00 paroxetine 2017-0 No 1mg 20 mg 1-26 tablet 00:00: 00 metoprolol 2017-0 No 1mg tartrate 50 1-26 mg tablet 00:00: 00 lisinopril 2017-0 No 1mg 20 mg 1-26 tablet 00:00: 00 hydroxyzine 2017-0 No 1mg HCl 25 mg 1-26 tablet 00:00: 00 Bromfed DM 2017-0 No 10mg/5 2 mg-30 1-26 mL mg-10 mg/5 00:00: mL syrup 00 paroxetine 2016-0 No 1mg 20 mg 8-02 tablet 00:00: 00 lisinopril 2016-0 No 1mg 20 mg 8-02 tablet 00:00: 00 lisinopril 2016-0 No 1mg 20 mg 8-02 tablet 00:00: 00 metoprolol 2016-0 No 1mg tartrate 50 8-02 mg tablet 00:00: 00 hydroxyzine 2016-0 No 1mg HCl 25 mg 8-02 tablet 00:00: 00 lisinopril 2016-0 No 1mg 20 mg 8-01 tablet 00:00: 00 metoprolol 2016-0 No 1mg tartrate 50 8-01 mg tablet 00:00: 00 hydroxyzine 2015-0 No 1mg HCl 25 mg 8-01 tablet 00:00: 00 fluticasone 2015-0 No 2mcg/ac 50 1-04 tuation mcg/actuati 00:00: on nasal 00 spray,suspe nsion metoprolol 0 No 1mg tartrate 50 1-04 mg tablet 00:00: 00 lisinopril 2015-0 No 1mg 20 mg 1-04 tablet 00:00: 00 Zithromax 2015-0 No 1mg Z-Sim 250 1-04 mg tablet 00:00: 00 Paxil 30 mg 2014- No 1mg tablet 0-29 00:00: 00 trazodone 2014-1 No 12mg 50 mg 0-29 tablet 00:00: 00 hydroxyzine 2014-1 No 1mg HCl 25 mg 0-29 tablet 00:00: 00 paroxetine 2014-1 No 1mg 20 mg 0-13 tablet 00:00: 00 metoprolol 1 No 1mg tartrate 50 0-13 mg tablet 00:00: 00 lisinopril 2014-1 No 1mg 20 mg 0-13 tablet 00:00: 00 hydroxyzine 2014-1 No 1mg HCl 25 mg 0-13 tablet 00:00: 00 metoprolol 2015-0 No 1mg tartrate 50 4-11 mg tablet 00:00: 00 paroxetine 2015-0 No 1mg 20 mg 4-11 tablet 00:00: 00 paroxetine 2014-0 No 1mg 20 mg 8-26 tablet 00:00: 00 metoprolol 2014-0 No 1mg tartrate 50 8-26 mg tablet 00:00: 00 Immunizations Ordered Filled Immunization Date Status Comments [facility] e Immunization Name Name Influenza Virus 2021-10-24 Completed [facility]00 [facility] Influenza Virus 2021-10-24 Completed [facility] 00:00[facility]00 [facility] Influenza Virus 2021-10-24 Completed [facility]ine 00:00:00 [facility] Influenza Virus 2021-10-24 Completed [facility] Vaccine 00:00:00 [facility] Influenza Virus 2021-10-24 Completed [facility] Vaccine 00:00:00 [facility] Influenza Virus 2021-10-24 Completed [facility] Vaccine 00:00:00 [facility] Influenza Virus 2021-10-24 Completed [facility] Vaccine 00:00:00 [facility] Influenza Virus 2021-10-24 Completed [facility] Vaccine 00:00:00 [facility] Influenza Virus 2021-10-24 Completed [facility] Vaccine 00:00:00 [facility] Influenza Virus 2021-10-24 Completed [facility] Vaccine 00:00:00 [facility] Influenza Virus 2021-10-24 Completed [facility] Vaccine 00:00:00 [facility] Influenza Virus 2021-10-24 Completed [facility] Vaccine 00:00:00 [facility] Pfizer COVID-19 2021-10-19 Completed Vaccine 00:00:00 Influenza Virus 2020-08-26 Completed [facility] Vaccine Quad .5 mL 00:00:00 [facility] Influenza Virus 2020-08-26 Completed [facility] Vaccine [facility] .5 mL 00:00:00 [facility] Influenza Virus 2020-08-26 Completed [facility] Vaccine [facility] .5 mL 00:00:00 [facility] Influenza Virus [...] 00:00:00 [facility] Influenza, 2019-07-08 Completed seasonal, inj 00:00:00 Vital Signs Vital Name Observation Time Observation Value Comments Source Systolic blood 2022-07-10 19:12:00 107 mm[Hg] [facility] Diastolic blood 2022-07-10 19:12:00 73 mm[Hg] [facility] Heart rate 2022-07-10 19:12:00 78 /min [facility] Body temperature 2022-07-10 19:12:00 35.61 [facility] Respiratory rate 2022-07-10 19:12:00 18 /min [facility] Body height 2022-07-10 19:12:00 162.6 cm [facility] Body weight 2022-07-10 19:12:00 115.985 kg [facility] BMI 2022-07-10 19:12:00 43.89 kg/m2 [facility] Systolic blood 2022-04-11 19:16:00 129 mm[Hg] [facility] Diastolic blood 2022-04-11 19:16:00 79 mm[Hg] [facility] Heart rate 2022-04-11 19:12:00 87 /min [facility] Body temperature 2022-04-11 19:12:00 35.89 [facility] Respiratory rate 2022-04-11 19:12:00 18 /min [facility] Body weight 2022-04-11 19:12:00 114.533 kg [facility] BMI 2022-04-11 19:12:00 43.34 kg/m2 [facility] Systolic blood 2022-04-04 20:40:00 131 mm[Hg] [facility] Diastolic blood 2022-04-04 20:40:00 64 mm[Hg] [facility] Respiratory rate 2022-04-04 20:38:00 20 /min [facility] Body height 2022-04-04 20:38:00 162.6 cm [facility] Body weight 2022-04-04 20:38:00 113.944 kg [facility] BMI 2022-04-04 20:38:00 43.12 kg/m2 [facility] Heart rate 2022-04-04 20:38:00 77 /min [facility] Body temperature 2022-04-04 20:38:00 [facility]78 [facility] Sy[facility]olic 2022-07-05 17:02:00 140 mm[Hg] BP Diastolic 2022-07-05 17:02:00 81 mm[Hg] Weight Measured 2022-07-05 17:02:00 253.60 pounds Height Measured 2022-07-05 17:02:00 63.07 inches Body Temperature 2022-07-05 17:02:00 98.30 degrees Heart Rate 2022-07-05 17:02:00 71.00 /min Respiratory Rate 2022-07-05 17:02:00 BP Systolic 2022-02-06 16:22:00 129 mm[Hg] BP Diastolic 2022-02-06 16:22:00 78 mm[Hg] Weight Measured 2022-02-06 16:22:00 250.40 pounds Height Measured 2022-02-06 16:22:00 63.07 inches Body Temperature 2022-02-06 16:22:00 98.40 degrees Heart Rate 2022-02-06 16:22:00 75.00 /min Respiratory Rate 2022-02-06 16:22:00 17.00 /min BP Systolic 2022-01-15 14:52:00 135 mm[Hg] BP Diastolic 2022-01-15 14:52:00 78 mm[Hg] Weight Measured 2022-01-15 14:52:00 251.60 pounds Height Measured 2022-01-15 14:52:00 63.07 inches Body Temperature 2022-01-15 14:52:00 98.10 degrees Heart Rate 2022-01-15 14:52:00 Respiratory Rate 2022-01-15 14:52:00 18.00 /min BP Systolic 2022-01-09 15:13:00 129 mm[Hg] BP Diastolic 2022-01-09 15:13:00 74 mm[Hg] Weight Measured 2022-01-09 15:13:00 248.80 pounds Height Measured 2022-01-09 15:13:00 63.07 inches Body Temperature 2022-01-09 15:13:00 98.10 degrees Heart Rate 2022-01-09 15:13:00 71.00 /min Respiratory Rate 2022-01-09 15:13:00 16.00 /min BP Systolic 2022-01-04 15:03:00 147 mm[Hg] BP Diastolic 2022-01-04 15:03:00 84 mm[Hg] Weight Measured 2022-01-04 15:03:00 253.40 pounds Height Measured 2022-01-04 15:03:00 63.07 inches Body Temperature 2022-01-04 15:03:00 98.20 degrees Heart Rate 2022-01-04 15:03:00 66.00 /min Respiratory Rate 2022-01-04 15:03:00 16.00 /min BP Systolic 2021-12-13 16:33:00 128 mm[Hg] BP Diastolic 2021-12-13 16:33:00 80 mm[Hg] Weight Measured 2021-12-13 16:33:00 249.00 pounds Height Measured 2021-12-13 16:33:00 63.07 inches Body Temperature 2021-12-13 16:33:00 98.30 degrees Heart Rate 2021-12-13 16:33:00 75.00 /min Respiratory Rate 2021-12-13 16:33:00 17.00 /min BP Systolic 2021-12-04 16:25:00 136 mm[Hg] BP Diastolic 2021-12-04 16:25:00 77 mm[Hg] Weight Measured 2021-12-04 16:25:00 248.80 pounds Height Measured 2021-12-04 16:25:00 63.07 inches Body Temperature 2021-12-04 16:25:00 98.60 degrees Heart Rate 2021-12-04 16:25:00 75.00 /min Respiratory Rate 2021-12-04 16:25:00 BP Systolic 2021-10-24 17:21:00 162 mm[Hg] BP Diastolic 2021-10-24 17:21:00 81 mm[Hg] Weight Measured 2021-10-24 17:21:00 249.80 pounds Height Measured 2021-10-24 17:21:00 63.07 inches Body Temperature 2021-10-24 17:21:00 99.10 degrees Heart Rate 2021-10-24 17:21:00 87.00 /min Respiratory Rate 2021-10-24 17:21:00 16.00 /min BP Systolic 2021-10-10 16:47:00 BP Diastolic 2021-10-10 16:47:00 Weight Measured 2021-10-10 16:47:00 250.00 pounds Height Measured 2021-10-10 16:47:00 Body Temperature 2021-10-10 16:47:00 Heart Rate 2021-10-10 16:47:00 Respiratory Rate 2021-10-10 16:47:00 BP Systolic 2021-10-03 16:16:00 155 mm[Hg] BP Diastolic 2021-10-03 16:16:00 88 mm[Hg] Weight Measured 2021-10-03 16:16:00 251.80 pounds Height Measured 2021-10-03 16:16:00 63.07 inches Body Temperature 2021-10-03 16:16:00 97.70 degrees Heart Rate 2021-10-03 16:16:00 75.00 /min Respiratory Rate 2021-10-03 16:16:00 16.00 /min Procedures Procedure Date / Time Performed Performing Clinician Sourc e GALV ONLY - SYPHILIS 2022-08-02 20:49:00 Corey Richardson [facility] IGG/IGM [facility] RPR (QUANTITATIVE) 2022-08-02 20:49:00 Corey Richardson [facility] URINALYSIS 2022-07-10 21:22:00 [facility] URINE CULTURE 2022-07-10 21:22:00 [facility] GALV ONLY - VAGINAL 2022-07-10 21:20:00 Odessa Gamez [facility] PATHOGENS BY NUCLEIC [facility] ACID TESTING Plan of Care Planned Activity Planned Date Details Comments Source Goal Plan of Care Note [code = 63287-3] Goal Plan of Care Note [code = 30642-7] Goal Plan of Care Note [code = 99928-3] Goal Plan of Care Note [code = 74262-3] Goal Plan of Care Note [code = 08565-2] Goal Plan of Care Note [code = 47799-5] Goal Plan of Care Note [code = 09912-5] Goal Plan of Care Note [code = 41475-7] Goal Plan of Care Note [code = 30552-8] Goal Plan of Care Note [code = 74144-4] Goal Plan of Care Note [code = 59452-2] Goal Plan of Care Note [code = 35664-7] Goal Plan of Care Note [code = 06928-5] Goal Plan of Care Note [code = 29045-3] Goal Plan of Care Note [code = 61780-9] Goal Plan of Care Note [code = 64674-8] Goal Plan of Care Note [code = 10900-9] Goal Plan of Care Note [code = 57256-8] Goal Plan of Care Note [code = 05350-7] Goal Plan of Care Note [code = 41945-8] Goal Plan of Care Note [code = 16186-4] Goal Plan of Care Note [code = 04055-6] Goal Plan of Care Note [code = 80152-6] Goal Plan of Care Note [code = 17078-0] Goal Plan of Care Note [code = 66741-2] Goal Plan of Care Note [code = 35679-7] Goal Plan of Care Note [code = 26100-6] Goal Plan of Care Note [code = 17134-1] Goal Plan of Care Note [code = 70018-3] Goal Plan of Care Note [code = 59050-4] Goal Plan of Care Note [code = 99107-3] Goal Plan of Care Note [code = 18210-9] Goal Plan of Care Note [code = 71992-7] Goal Plan of Care Note [code = 76438-9] Goal Plan of Care Note [code = 00629-6] Goal Plan of Care Note [code = 44459-2] Goal Plan of Care Note [code = 65460-7] Goal Plan of Care Note [code = 38268-5] Goal Plan of Care Note [code = 92391-5] Goal Plan of Care Note [code = 85688-1] Goal Plan of Care Note [code = 99749-2] Goal Plan of Care Note [code = 31899-5] Goal Plan of Care Note [code = 16272-0] Goal Plan of Care Note [code = 77523-6] Goal Plan of Care Note [code = 60825-5] Goal Plan of Care Note [code = 90325-3] Goal Plan of Care Note [code = 90887-7] Goal Plan of Care Note [code = 01088-9] Goal Plan of Care Note [code = 32442-0] Goal Plan of Care Note [code = 86920-4] Goal Plan of Care Note [code = 56704-2] Goal Plan of Care Note [code = 99579-1] Goal Plan of Care Note [code = 81008-6] Goal Plan of Care Note [code = 44597-5] Goal Plan of Care Note [code = 38960-5] Goal Plan of Care Note [code = 81906-2] Goal Plan of Care Note [code = 27267-2] Goal Plan of Care Note [code = 19250-8] Goal Plan of Care Note [code = 19234-3] Goal Plan of Care Note [code = 21272-7] Goal Plan of Care Note [code = 73714-1] Goal Plan of Care Note [code = 20677-7] Goal Plan of Care Note [code = 47573-3] Goal Plan of Care Note [code = 21045-5] Goal Plan of Care Note [code = 46729-7] Goal Plan of Care Note [code = 61044-7] Goal Plan of Care Note [code = 93865-5] Goal Plan of Care Note [code = 02267-1] Goal Plan of Care Note [code = 11383-6] Goal Plan of Care Note [code = 94709-6] Goal Plan of Care Note [code = 54148-2] Goal Plan of Care Note [code = 80784-0] Encounters Start End Encounter Admission Attending Care Care Encounter Source Date/Time Date/Time Type Type Clinicians Facility Department ID 2021-07-24 Emergency [facility] [id number] Univers 17:15:12 [facility] 2021-07-22 Emergency [facility] [id number] Univers 11:44:33 [facility] 2022-10-02 2022-10-02 Outpatient R TESHA IRELAND [facility] [id number] Univers 11:00:00 11:00:00 TESHA IRELAND i ty of [facility] 2022-08-02 2022-08-02 Outpatient R DEBRA, [facility] [id number] Univers 13:30:00 14:49:14 COREY mclaughlin [facility] 2022-08-02 2022-08-02 Logging [employer], [facility] 1.2.840. 114 [id number] Univers 13:30:00 14:49:14 Visit Corey Richardson C VISCOSITY TESTER 350.1.13. 10 ity [facility] 4.2.7.2.686 [place] as MATERNAL [phone] Med ical & CHILD [address] [place] [address] 2022-08-02 2022-08-02 Telephone Sloane Call [facility] 1.2.840.114 [id number] Univers 00:00:00 00:00:00 Y HEALTH 350.1.13.10 i ty of [facility] [place] [id number] [address] 2022-07-27 2022-07-27 Outpatient R YOSI [facility] [id number] Univers 14:30:00 14:30:00 GOLD [facility] 2022-07-27 2022-07-27 Telephone Odessa Gamez [facility] 1.2.840.114 [id number] Univers 00:00:00 00:00:00 Y HEALTH 350.1.13.10 i ty of [facility] [place] [id number] [address] 2022-07-12 2022-07-12 Outpatient R DEBRA [facility] [id number] Univers 13:30:00 13:30:00 COREY mclaughlin [facility] 2022-07-10 2022-07-10 Outpatient Garcia ASHBY [facility] [id number] Univers 13:30:00 16:09:22 PHILL [facility] 2022-07-10 2022-07-10 Office Pgy2 [facility] 1.2.296.505 [id number] Univers 13:30:00 16:09:22 Visit Phill Ashby M Y HEALTH 350.1.13.10 it[place] [id number] [address] 2022-07-05 2022-07-05 Outpatient SFA SFA [id number] Romel 16:53:03 16:53:03 1013 F Louis 2022-07-05 2022-07-05 Outpatient [id number] 00:00:00 00:00:00 Visit [id number] -4ao1-wo4 [id number] 2022-06-20 2022-06-20 Telephone Pgy3 [facility] 1.2.840.114 [id number] Univers 00:00:00 00:00:00 Y HEALTH 350.1.13.10 i [place] [id number] [address] 2022-06-15 2022-06-15 Telephone Romel Mclaughlin [facility] 1.2.840.114 [id number] Univers 00:00:00 00:00:00 Louis HEALTH 350.1.13.10 i ty of [facility] [place]7.2.[place] [facility] [id number] [facility] 2022-06-11 2022-06-11 Telephone Pgy3 [facility] 1.2.840.114 [id number] Univers 00:00:00 00:00:00 Y HEALTH 350.1.13.10 i [place] [id number] [address] 2022-05-31 2022-05-31 Outpatient R [facility] [id number] Univers 15:00:00 [facility] 2022-05-14 [facility] [id number] Univers 14:45:00 14:45:00 [facility] 2022-05-14 2022-05-14 Telephone Pgy3 [facility] 1.2.840.114 [id number] Univers 00:00:00 00:00:00 Y HEALTH 350.1.13.10 i ty of [facility] [place] [id number] [address] 2022-04-13 2022-04-13 Tele[facility] 1.2.840.114 [id number] Univers 00:00:00 00:00:00 Corey C VISCOSITY TESTER 350.1.13.10 ity of [facility] 4.2.7.2.686 [place] as MATERNAL [id number] Med ical & CHILD [address] [place] [address] 2022-04-11 2022-04-11 Out[facility] [id number] Univers 13:45:00 14:38:39 DEVIKA guzmán o [facility] 2022-04-11 2022-04-11 Nurse Visit, [facility] Nurse [facility] 1.2 .840.114 [id number] Univers 13:45:00 14:38:39 Visit Devika Hirsch VISCOSITY TESTER 350.1.13.10 ity of [facility] 4.2.7.2.686 [place] as MATERNAL [id number] [facility] & CHILD [address] [place] [address] 2022-04-11 2022-04-11 Outpatient R [facility] [id number] Univers 13:45:00 13:45:00 ity of [facility] 2022-04-04 2022-04-04 [facility] [id number] Univers 11:00:00 16:50:31 COREY meyery o f [facility] 2022-04-04 2022-04-04 Office [facility] 1.2.487.738 [id number] Univers 11:00:00 16:50:31 Visit Corey Ricks VISCOSITY TESTER 350.1.13.10 ity of [facility] 4.2.7.2.686 [place] as MATERNAL [phone] [facility] & CHILD [address] [place] [address] 2022-04-04 2022-04-04 Outpatient R [facility] [id number] Univers 10:30:00 10:30:00 ity of [facility] 2022-03-30 2022-03-30 Telephone [facility] 1.2.012.972 [id number] Univers 00:00:00 00:00:00 Devika R VISCOSITY TESTER 350.1.13.10 ity of [facility] 4.2.7.2.686 [place] as MATERNAL [id number] [facility] ical & CHILD [address] [place] [address] 2022-03-28 2022-03-28 Outpatient R JOYCELYN [facility] [id number] Univers 13:00:00 16:06:01 DEVIKA ugzmán o [facility] 2022-03-28 2022-03-28 Nurse Visit, [facility] Nurse [facility] 1.2 .840.114 [id number] Univers 13:00:00 13:15:00 Visit HirschDevika VISCOSITY TESTER 350.1.13.10 ity of [place] 4.2.7.2.686 [place] MATERNAL [id number] [facility] & CHILD [address] [place] [address] 2022-03-28 2022-03-28 Outpatient Garcia [facility] [id number] Univers 13:00:00 13:00:00 DEVIKA guzmán o hoda [facility] 2022-03-28 2022-03-28 Telephone [facility] 1.2.636.080 [id number] Univers 00:00:00 00:00:00 Devika R VISCOSITY TESTER 350.1.13.10 ity of [place] 4.2.7.2.686 [place] as MATERNAL [id number] [facility] & CHILD [address] [place] [address] 2022-03-21 2022-03-21 Telephone [facility] 1.2.983.703 [id number] Univers 00:00:00 00:00:00 Devika R VISCOSITY TESTER 350.1.13.10 ity of [place] 4.2.7.2.686 [place] MATERNAL [id number] [facility] & CHILD [address] [place] [address] 2022-03-19 2022-03-19 [facility]phone [facility] 1.2.927.645 [id number] Univers 00:00:00 00:00:00 Shannonguy R VISCOSITY TESTER 350.1.13.10 ity of [facility] 4.2.7.2.686 [place] as MATERNAL [id number] [facility] ical & CHILD [address] [place] [address] 2022-03-15 2022-03-15 Outpatient [facility] [id number] Univers 14:30:00 16:08:17 DEVIKA mitchy o [facility] 2022-03-15 2022-03-15 [facility] 1.2.840.114 [id number] Univers 14:30:00 16:08:17 [facility] VISCOSITY TESTER 350.1.13.10 ity of [facility] 4.2.7.2.686 [place] as MATERNAL [id number] [facility] & CHILD [address] [place] [address] 2022-03-15 2022-03-15 Orders Doctor ELISE 1.2.840.114 [id number] Univers 00:00:00 00:00:00 Only Unassigned, FARAZ 350.1.13.10 ity of [place] [facility] 4.2.7.2.686 [place] as [id number] [address] 2022-02-28 2022-02-28 Outpatient R DEBRA, [facility] [id number] Univers 13:45:00 13:45:00 COREY guzmán o [facility] 2022-02-12 2022-02-12 Outpatient R KALEB [facility] [id number] Univers 15:30:00 15:30:00 BENNIE guzmán [facility] 2022-02-08 2022-02-08 Outpatient R JESÚS [facility] [id number] Univers 00:00:00 00:00:00 SUZETTE torres [facility] 2022-02-07 2022-02-07 Outpatient R JESÚS, [facility] [id number] Univers 00:00:00 00:00:00 SUZETTE torres [facility] 2022-02-02 2022-02-02 Outpatient R DEBRA, [facility] [id number] Univers 13:15:00 13:15:00 COREY ity o f [facility] 2022-01-29 2022-01-29 Telephone [facility] 1.2.218.837 [id number] Univers 00:00:00 00:00:00 Suzette NIELSEN 350.1.13.10 ity of [place] [id number] [address] 2022-01-25 2022-01-25 Telephone [facility] 1.2.155.640 [id number] Univers 00:00:00 00:00:00 Qianan NIELSEN 350.1.13.10 ity of [place] [id number] [address] 2022-01-24 2022-01-24 Outpatient R [facility] [id number] Univers 13:00:00 23:59:00 SUZETTE ity o f [facility] 2022-01-19 2022-01-19 [facility] 1.2.039.247 [id number] Univers 00:00:00 00:00:00 Suzette NIELSEN 350.1.13.10 ity of [place] [id number] [address] 2022-01-10 2022-01-10 Outpatient R [facility] [id number] Univers 16:00:00 16:42:50 SUZETTE ity o f [facility] 2022-01-10 2022-01-10 Office [facility] 1.2.840.114 [id number] Univers 16:00:00 16:42:50 Visit Suzette NIELSEN 350.1.13.10 ity [place] [id number] [address] 2022-01-10 2022-01-10 Orders Doctor ELISE 1.2.840.114 [id number] Univers 00:00:00 00:00:00 Only Unassigned, FARAZ 350.1.13.10 [place] of [place] [facility] 4.2.7.2.686 [place] as [id number] [facility] [address] 2021-11-24 2021-11-24 Emergency X CACSANA, [facility] ERT [id number] Univers 18:45:00 21:21:00 DARLENE ity of [facility] 2021-11-24 2021-11-24 Emergency Cacace, [place] 1.2.325.723 [id number] Univers 18:45:00 21:21:00 Darlene Gonzalez [place] 350.1.13.10 [place] [id number] [facility] [address] 2021-05-14 2021-05-15 Emergency Mamta, [place] 1.2.432.398 [id number] Univers 21:27:00 03:51:00 Suresh Wood [place] 350.1.13.10 [place] [id number] [facility] [address] 2021-01-23 2021-01-23 [facility] 1.2.840.114 [id number] 13:39:55 23:59:00 Encounter Corey C SPECIALTY 350.1.13.10 CARE 4.2.7.2.686 CENTER AT [id number] [address] 2021-01-23 2021-01-23 [facility] 1.2.840.114 [id number] Univers 13:39:55 23:59:00 Encounter Corey C SPECIALTY 350.1.13.10 ity of [place] AT [id number] [place] [address] 2021-01-23 2021-01-23 Outpatient [facility] [id number] Univers 00:00:00 00:00:00 COREY torres f [facility] 2021-01-23 2021-01-23 Telephone [facility] 1.2.840.114 [id number] 00:00:00 00:00:00 Corey Ricks VISCOSITY TESTER 350.1.13.10 REGIONAL 4.2.7.2.686 MATERNAL [phone] & CHILD [address] [place] [address] 2021-01-23 2021-01-23 [facility]phone [facility] 1.2.840.114 [id number] Univers 00:00:00 00:00:00 Corey C VISCOSITY TESTER 350.1.13.10 ity of [place] 4.2.7.2.686 [place] MATERNAL [id number] [facility] & CHILD [address] [place] [address] 2021-01-13 2021-01-13 Outpatient R AKINZURDOPE, [facility] [id number] Univers 13:15:00 13:15:00 COREY ity o f [facility] 2021-01-02 2021-01-02 Telephone [facility] 1.2.840.114 [id number] 00:00:00 00:00:00 Corey C VISCOSITY TESTER 350.1.13.10 REGIONAL 4.2.7.2.686 MATERNAL [id number] & CHILD [address] [place] [address] 2021-01-02 2021-01-02 Telephone Debra, [facility] 1.2.840.114 [id number] Univers 00:00:00 00:00:00 Corey C VISCOSITY TESTER 350.1.13.10 ity of [place] 4.2.7.2.686 [place] as MATERNAL [id number] [facility] & CHILD [address] [place] [address] 2020-12-07 2020-12-07 Outpatient R JENNYPE, [facility] [id number] Univers 15:00:00 15:00:00 COREY ity o f [facility] 2020-12-07 2020-12-07 Outpatient R AKINSIPE, [facility] [id number] Univers 15:00:00 15:00:00 COREY ity o f [facility] 2020-11-23 2020-11-23 Outpatient R AKINSIPE, [facility] [id number] Univers 00:00:00 00:00:00 COREY ity o f [facility] 2020-11-11 2020-11-11 Telephone [facility] 1.2.840.114 [id number] 00:00:00 00:00:00 Corey C VISCOSITY TESTER 350.1.13.10 REGIONAL 4.2.7.2.686 MATERNAL [id number] & CHILD [address] [place] [address] 2020-11-11 2020-11-11 Telephone [facility] 1.2.840.114 [id number] Univers 00:00:00 00:00:00 Corey C VISCOSITY TESTER 350.1.13.10 ity of [place] 4.2.7.2.686 [place] as MATERNAL [id number] [facility] & CHILD [address] [place] [address] 2020-10-17 2020-10-17 Letter [facility] 1.2.384.718 [id number] 00:00:00 00:00:00 (Out) Corey C VISCOSITY TESTER 350.1.13.10 REGIONAL 4.2.7.2.686 MATERNAL [id number] & CHILD [address] [place] [address] 2020-10-17 2020-10-17 Letter [facility] 1.2.717.624 [id number] Univers 00:00:00 00:00:00 (Out) Corey C VISCOSITY TESTER 350.1.13.10 ity of [place] 4.2.7.2.686 [place] as MATERNAL [id number] [facility] & CHILD [address] [place] [address] 2020-10-07 2020-10-07 Outpatient R AKINSIPE, [facility] [id number] Univers 15:00:00 15:00:00 COREY ity o f [facility] 2020-10-04 2020-10-04 Outpatient R AKINSIPE, [facility] [id number] Univers 14:15:00 14:15:00 COREY ity o f [facility] 2020-09-20 2020-09-20 Outpatient R AKINSIPE, [facility] [id number] Univers 13:30:00 13:30:00 COREY ity o f [facility] 2020-09-07 2020-09-07 Emergency [facility] 1.2.623.829 [id number] 16:29:00 20:08:00 Yenny Nielsen 350.1.13.10 [place] 4.2.7.2.686 [place] [id number] [facility] 2020-09-07 2020-09-07 Emergency [facility], [facility] 1.2.906.135 [id number] Univers 16:29:00 20:08:00 Yenny Parker Rafael 350.1.13.10 ity of [place] 4.2.7.2.686 [facility] [id number] [place] [address]34 [place] 2020-09-07 2020-09-07 Office Akinsipe, [facility] 1.2.133.398 [id number] 14:27:17 15:59:19 Visit Corey Rambo VISCOSITY TESTER 350.1.13.10 REGIONAL 4.2.7.2.686 MATERNAL [id number] & CHILD [address] [place] [address] 2020-09-07 2020-09-07 Office Akinformerly [facility], [facility] 1.2.432.124 [id number] Univers 14:27:17 15:59:19 Visit Corey Ricks VISCOSITY TESTER 350.1.13.10 ity of [facility] 4.2.7.2.686 [place] as MATERNAL [id number] Med ical & CHILD [address] [place] [address] 2020-09-07 2020-09-07 Outpatient R DEBRA, [facility] [id number] Univers 14:30:00 14:30:00 COREY mclaughlin [facility] 2020-09-07 2020-09-07 Orders Doctor ARIK 1.2.840.114 [id number] Univers 00:00:00 00:00:00 Only Unassigned, FARAZ 350.1.13.10 [place]y of [place] [facility] 4.2.7.2.686 [place] as [id number] [facility] [address] 2020-09-02 2020-09-02 Outpatient R AKINSIPE, [facility] [id number] Univers 10:30:00 10:30:00 COREY torres f [facility] 2020-08-26 2020-08-26 Emergency [facility] 1.2.709.026 [id number] Univers 17:30:00 20:13:00 Carmenza S Rafael 350.1.13.10 i ty of [place] 4.2.7.2.686 [facility] [id number] [address] 2020-08-26 2020-08-26 Emergency X ELÍAS, [facility] ERT [id number] Univers 17:30:00 20:13:00 CARMENZA ity [facility] 2020-08-26 2020-08-26 Office Debra [facility] 1.2.268.717 [id number] Univers 15:55:58 17:12:33 Visit Corey Ricks VISCOSITY TESTER 350.1.13.10 ity of [facility] 4.2.7.2.686 [place] as MATERNAL [id number] [facility] ical & CHILD [address] [place] [address] 2020-08-26 2020-08-26 Office Debra [facility] 1.2.425.367 [id number] Univers 16:51:05 17:11:04 Visit Corey Ricks VISCOSITY TESTER [id number] ity of [facility] [id number] [place] as MATERNAL [phone] [facility] & CHILD [address] [place] [address] 2020-08-26 2020-08-26 Nurse Visit, [facility] Nurse [facility] [id number] .[id number] Univers 16:20:49 16:35:49 Visit Corey Richardson VISCOSITY TESTER [id number]. 10 ity of [facility] [id number] [place] as MATERNAL [phone] [facility] & [address] 2020-08-26 2020-08-26 Outpatient R [facility] [id number] Univers 15:30:00 15:30:00 ity of [facility] 2020-08-26 2020-08-26 Outpatient R DEBRA [facility] [id number] Univers 15:15:00 15:15:00 COREY guzmán o f [facility] 2020-08-26 2020-08-26 Outpatient R DEBRA, [facility] [id number] Univers 15:00:00 15:00:00 COREY ity o f [facility] 2019-12-14 2019-12-14 Telephone Joycelyn [facility] [id number] Univers 00:00:00 00:00:00 Devika R VISCOSITY TESTER [id number] ity of [facility] [id number] [place] as MATERNAL [phone] [facility] & CHILD [address] [place] [address] 2019-05-13 2019-05-13 Office Joycelyn [facility] [id number] Univers 15:01:34 16:41:19 Visit Devika Zelaya VISCOSITY TESTER [id number] ity of [facility] [id number] [place] as MATERNAL [phone] [facility] & CHILD [address] [place] [address] 2019-05-13 2019-05-13 Orders Doctor ARIK [id number] Univers 00:00:00 00:00:00 Only Unassigned, FARAZ [id number] ity of [place] [facility] [id number] [place] as [phone] [address] 2009-12-23 2009-12-26 Inpatient [facility] [id number] Univers 23:02:00 14:30:00 KILLIAN 0 ity o f [facility] Results Test Description Test Time Test Comments Results Result [facility] e Comments SCR MAMM 2022-04-27 BILATERAL ANTIONETTE 12:34:34 CAD DIGITAL Name: , Carmel Palacio : 1960 Sex: F - SCR MAMM BILATERAL ANTIONETTE CAD DIGITALBILATERAL DIGITAL SCREENING MAMMOGRAM 3D/2D WITH CAD: 2CLINICAL: Asymptomatic. Digital breast tomosynthesis was performed in addition to routine CC and MLO views. Current mammographic images were evaluated by [employer] CAD (computer-aided detection) software. Comparison is made to exam dated 10/25/2010 mammogram - [facility] [address]. There are scattered fibroglandular tissues in both breasts. There are multiple calcifications in the right breast central to the nipple posterior depth. No other significant masses, calcifications, or other findings are seen in either breast. IMPRESSION: INCOMPLETE: ADDITIONAL IMAGING EVALUATION NEEDEDThe multiple calcifications in the right breast are indeterminate. Spot magnification and lateral views as well as a possible ultrasound are recommended. Ki Adames M.D. et/penrad:04/27/2022 12:34:34 Consumer Lending Manager: Niecy Davila MM, [employer] Mammographyletter sent: Additional Imaging Mammogram BI-RADS: 0 Incomplete: Additional Imaging Evaluation Needed COMPREHENSIVE METABOLIC PANEL 2022-01-06 04:06:36 Test Item Value Reference Range Interpretation Comme nts GLUCOSE (test code = 2217) 102 MG/DL 70-99 H BUN (test code = 2208) 9 MG/DL 8-23 CREATININE (test code = 0.74 MG/DL 0.60-1.30 2213) eGFR (2020 CKD-EPI) (test 93 ML/MIN/1.73 >60 code = 40225) CALC BUN/CREAT (test code = 12 RATIO 6-28 2234) SODIUM (test code = 2231) 141 MEQ/L 133-146 POTASSIUM (test code = 2228) 4.2 MEQ/L 3.5-5.4 CHLORIDE (test code = 2215) 102 MEQ/L 95-107 CARBON DIOXIDE (test code = 24 MEQ/L 19-31 2205) CALCIUM (test code = 2209) 9.3 MG/DL 8.5-10.5 PROTEIN, TOTAL (test code = 7.4 G/DL 6.1-8.3 2228) ALBUMIN (test code = 2201) 4.6 G/DL 3.5-5.2 CALC GLOBULIN (test code = 2.8 G/DL 1.9-3.7 2239) CALC A/G RATIO (test code = 1.6 RATIO 1.0-2.6 2233) BILIRUBIN, TOTAL (test code 0.3 MG/DL See_Comment [Automated message] The = 7) system which ge nerated this result transmit luis miguel reference range: <=1.2. T he reference range was not u sed to interpret this result as normal/abnormal . ALKALINE PHOSPHATASE (test 101 U/L 40-136 code = 2204) AST (test code = 2218) 12 U/L 9-40 ALT (test code = 2219) 11 U/L 5-40 LIPID [id number] 04:06:36 Test Item Value Reference Range Interpretation Comments CHOLESTEROL (test 182 MG/DL <200 code = 2210) TRIGLYCERIDES (test 116 MG/DL <150 code = 2232) HDL CHOLESTEROL (test 46 MG/DL >39 code = 2220) CALC LDL CHOL (test 114 MG/DL <100 H NOTE: C ALCULATED LDL code = 2237) IS BASED ON BRISA-BARR METHOD WHICHINCLUDES ADJUSTABLE TRIGLYCERIDE:VL DL CHOLESTEROL RAT IO.THIS FACTOR VARIES B Y MEASURED TRIGLY CERIDE AND NON-HDLCHOL ESTEROL CONCENTRATIONS WITH INCREASED CALCU LATED LDL SEENIN HIGH ER TRIGLYCERIDE OR LOWER NON-HDL SPECIME NS. FOR MOREINFORMATION , SEE CLIENT ANNOUNCE MENT AT [email or web address] [email or web address] RATIO LDL/HDL 2.48 RATIO <3.22 (test code = 2238) HEMOGLOBIN [id number] 03:59:19 Test Item Value Reference Range Interpretation Comments HEMOGLOBIN A1c (test code = 85583) 5.8 % 4.2-5.6 H TSH, THIRD [id number] 03:58:52 Test Item Value Reference Range Interpretation Comments TSH, THIRD GENERATION (test code 1.140 UIU/ML 0.400-4.100 = 2821) HIV 1/2 4TH GEN, RFLX [id number] 03:24:41 Test Item Value Reference Range Interpretation Comments HIV 1/2 4TH GEN, RFLX CONF (test NON-REACTIVE NON-REACTIVE code = 3514) HEPATITIS PANEL, [id number] 03:24:41 Test Item Value Reference Range Interpretation Comments HEPATITIS A IgM (test NON-REACTIVE NON-REACTIVE code = 79626) HEPATITIS B CORE IgM NON-REACTIVE NON-REACTIVE (test code = 4644) HEPATITIS B SURF AG NON-REACTIVE NON-REACTIVE (test code = 2739) HEPATITIS C ANTIBODY NON-REACTIVE NON-REACTIVE (test code = 4675) INTERPRETATION (NOTE) Hepatitis A HEPATITIS A: (test serology shows no code = 2552) evidence of acu te hepatitis A. INTERPRETATION (NOTE) Hepatitis B HEPATITIS B: (test serology shows no code = 18670) evidence of ac koi hepatitis B and no indication of exposure to hepatitis B vir us in the previous si xto eight months. INTERPRETATION (NOTE) Hepatitis C HEPATITIS C: (test serology shows no code = 13482) evidence of ex posure to hepatitisC v irus at this time. I t can take up to 12 m onths after exposure tothe hepatitis C vir us for antibodies to become detectab le in the blood in ce rtain patients. UNLES S OTHERWISE INDIC ATED, ALL TESTING PERFORMED [facility]IES, [address] [place] [address] [facility] DIRECTOR: RAUL WALDRON M.D. CLIA NUMBER [id number] [place]. [id number] CBC W/AUTO DIFF WITH [id number] 01:44:25 Test Item Value Reference Range Interpretation Comments WBC (test code = 6.4 K/UL 3.5-11.0 1001) RBC (test code = 4.17 M/UL 3.80-5.40 1002) HEMOGLOBIN (test code 13.4 G/DL 11.5-15.5 = 1003) HEMATOCRIT (test code 38.4 % 34.0-45.0 = 1004) MCV (test code = 92.1 fL 80.0-99.0 1005) MCH (test code = 32.1 PG 25.0-33.0 1006) MCHC (test code = 34.9 G/DL 31.0-36.0 1007) RDW (test code = 12.0 % 11.5-15.0 1038) NEUTROPHILS (test 59.4 % code = 1008) LYMPHOCYTES (test 29.0 % code = 1010) MONOCYTES (test code 7.0 % = 1011) EOSINOPHILS (test 3.7 % code = 1012) BASOPHILS (test code 0.6 % = 1013) IMMATURE GRANULOCYTES 0.3 % (test code = 1036) NUCLEATED RBCS (test 0.0 /100 WBC'S See_Comment [Aut omated code = 1065) message] The sy stem which generated this result transmitted reference range : 0.0. The refere nce range was not u sed to interpret th is result as normal/abnormal . PLATELET COUNT (test 299 K/UL 130-400 code = 1015) ABSOLUTE NEUTROPHILS 3.81 K/UL 1.50-7.50 (test code = 1066) ABSOLUTE LYMPHOCYTES 1.86 K/UL 1.00-4.00 (test code = 1067) ABSOLUTE MONOCYTES 0.45 K/UL 0.20-1.00 (test code = 1068) ABSOLUTE EOSINOPHILS 0.24 K/UL 0.00-0.50 (test code = 1040) ABSOLUTE BASOPHILS 0.04 K/UL 0.00-0.20 (test code = 1069) ABS IMMATURE 0.02 K/UL 0.00-0.10 GRANULOCYTES (test code = 1020) ABS NUCLEATED RBCS 0.00 K/UL 0.00-0.11 (test code = 74370) CBC W/AUTO [id number] 00:00:00 Test Item Value Reference Range Interpretation Comments WBC (test code = 1001) 6.4 K/UL RBC (test code = 1002) 4.17 M/UL HEMOGLOBIN (test code = 1003) 13.4 G/DL HEMATOCRIT (test code = 1004) 38.4 % MCV (test code = 1005) 92.1 fL MCH (test code = 1006) 32.1 PG MCHC (test code = 1007) 34.9 G/DL RDW (test code = 1038) 12.0 % NEUTROPHILS (test code = 1008) 59.4 % LYMPHOCYTES (test code = 1010) 29.0 % MONOCYTES (test code = 1011) 7.0 % EOSINOPHILS (test code = 1012) 3.7 % BASOPHILS (test code = 1013) 0.6 % IMMATURE GRANULOCYTES (test 0.3 % code = 1036) NUCLEATED RBCS (test code = 0.0 /100WBC'S 1065) PLATELET COUNT (test code = 299 K/UL 1015) ABSOLUTE NEUTROPHILS (test code 3.81 K/UL = 1066) ABSOLUTE LYMPHOCYTES (test code 1.86 K/UL = 1067) ABSOLUTE MONOCYTES (test code = 0.45 K/UL 1068) ABSOLUTE EOSINOPHILS (test code 0.24 K/UL = 1040) ABSOLUTE BASOPHILS (test code = 0.04 K/UL 1069) ABS IMMATURE GRANULOCYTES (test 0.02 K/UL code = 1020) ABS NUCLEATED RBCS (test code = 0.00 K/UL 57469) CBC W/AUTO [id number] 00:00:00 Test Item Value Reference Range Interpretation Comments WBC (test code = 1001) 6.4 K/UL RBC (test code = 1002) 4.17 M/UL HEMOGLOBIN (test code = 1003) 13.4 G/DL HEMATOCRIT (test code = 1004) 38.4 % MCV (test code = 1005) 92.1 fL MCH (test code = 1006) 32.1 PG MCHC (test code = 1007) 34.9 G/DL RDW (test code = 1038) 12.0 % NEUTROPHILS (test code = 1008) 59.4 % LYMPHOCYTES (test code = 1010) 29.0 % MONOCYTES (test code = 1011) 7.0 % EOSINOPHILS (test code = 1012) 3.7 % BASOPHILS (test code = 1013) 0.6 % IMMATURE GRANULOCYTES (test 0.3 % code = 1036) NUCLEATED RBCS (test code = 0.0 /100WBC'S 1065) PLATELET COUNT (test code = 299 K/UL 1015) ABSOLUTE NEUTROPHILS (test code 3.81 K/UL = 1066) ABSOLUTE LYMPHOCYTES (test code 1.86 K/UL = 1067) ABSOLUTE MONOCYTES (test code = 0.45 K/UL 1068) ABSOLUTE EOSINOPHILS (test code 0.24 K/UL = 1040) ABSOLUTE BASOPHILS (test code = 0.04 K/UL 1069) ABS IMMATURE GRANULOCYTES (test 0.02 K/UL code = 1020) ABS NUCLEATED RBCS (test code = 0.00 K/UL 00866) CBC W/AUTO [id number] 00:00:00 Test Item Value Reference Range Interpretation Comments WBC (test code = 1001) 6.4 K/UL RBC (test code = 1002) 4.17 M/UL HEMOGLOBIN (test code = 1003) 13.4 G/DL HEMATOCRIT (test code = 1004) 38.4 % MCV (test code = 1005) 92.1 fL MCH (test code = 1006) 32.1 PG MCHC (test code = 1007) 34.9 G/DL RDW (test code = 1038) 12.0 % NEUTROPHILS (test code = 1008) 59.4 % LYMPHOCYTES (test code = 1010) 29.0 % MONOCYTES (test code = 1011) 7.0 % EOSINOPHILS (test code = 1012) 3.7 % BASOPHILS (test code = 1013) 0.6 % IMMATURE GRANULOCYTES (test 0.3 % code = 1036) NUCLEATED RBCS (test code = 0.0 /100WBC'S 1065) PLATELET COUNT (test code = 299 K/UL 1015) ABSOLUTE NEUTROPHILS (test code 3.81 K/UL = 1066) ABSOLUTE LYMPHOCYTES (test code 1.86 K/UL = 1067) ABSOLUTE MONOCYTES (test code = 0.45 K/UL 1068) ABSOLUTE EOSINOPHILS (test code 0.24 K/UL = 1040) ABSOLUTE BASOPHILS (test code = 0.04 K/UL 1069) ABS IMMATURE GRANULOCYTES (test 0.02 K/UL code = 1020) ABS NUCLEATED RBCS (test code = 0.00 K/UL 47885) COMPREHENSIVE METABOLIC [id number] 00:00:00 Test Item Value Reference Range Interpretation Comments GLUCOSE (test code = 2217) 102 MG/DL BUN (test code = 2208) 9 MG/DL CREATININE (test code = 2214) 0.74 MG/DL eGFR (2020 CKD-EPI) (test code 93 ML/MIN/1.73 = 64776) CALC BUN/CREAT (test code = 12 RATIO 2235) SODIUM (test code = 2231) 141 MEQ/L POTASSIUM (test code = 2228) 4.2 MEQ/L CHLORIDE (test code = 2215) 102 MEQ/L CARBON DIOXIDE (test code = 24 MEQ/L 2206) CALCIUM (test code = 2209) 9.3 MG/DL PROTEIN, TOTAL (test code = 7.4 G/DL 222) ALBUMIN (test code = 2201) 4.6 G/DL CALC GLOBULIN (test code = 2.8 G/DL 2240) CALC A/G RATIO (test code = 1.6 RATIO 2234) BILIRUBIN, TOTAL (test code = 0.3 MG/DL 220) ALKALINE PHOSPHATASE (test 101 U/L code = 2204) AST (test code = 2218) 12 U/L ALT (test code = 2219) 11 U/L COMPREHENSIVE METABOLIC [id number] 00:00:00 Test Item Value Reference Range Interpretation Comments GLUCOSE (test code = 2217) 102 MG/DL BUN (test code = 2208) 9 MG/DL CREATININE (test code = 2214) 0.74 MG/DL eGFR (2020 CKD-EPI) (test code 93 ML/MIN/1.73 = 81098) CALC BUN/CREAT (test code = 12 RATIO 2235) SODIUM (test code = 2231) 141 MEQ/L POTASSIUM (test code = 2228) 4.2 MEQ/L CHLORIDE (test code = 2215) 102 MEQ/L CARBON DIOXIDE (test code = 24 MEQ/L 2205) CALCIUM (test code = 2209) 9.3 MG/DL PROTEIN, TOTAL (test code = 7.4 G/DL 2228) ALBUMIN (test code = 2201) 4.6 G/DL CALC GLOBULIN (test code = 2.8 G/DL 2239) CALC A/G RATIO (test code = 1.6 RATIO 2233) BILIRUBIN, TOTAL (test code = 0.3 MG/DL 2206) ALKALINE PHOSPHATASE (test 101 U/L code = 2204) AST (test code = 2218) 12 U/L ALT (test code = 2219) 11 U/L LIPID [id number] 00:00:00 Test Item Value Reference Range Interpretation Comments CHOLESTEROL (test code = 2210) 182 MG/DL TRIGLYCERIDES (test code = 2232) 116 MG/DL HDL CHOLESTEROL (test code = 2220) 46 MG/DL CALC LDL CHOL (test code = 2237) 114 MG/DL RISK RATIO LDL/HDL (test code = 2.48 RATIO 2238) LIPID [id number] 00:00:00 Test Item Value Reference Range Interpretation Comments CHOLESTEROL (test code = 2210) 182 MG/DL TRIGLYCERIDES (test code = 2232) 116 MG/DL HDL CHOLESTEROL (test code = 2220) 46 MG/DL CALC LDL CHOL (test code = 2237) 114 MG/DL RISK RATIO LDL/HDL (test code = 2.48 RATIO 2238) HEMOGLOBIN [id number] 00:00:00 Test Item Value Reference Range Interpretation Comments HEMOGLOBIN A1c (test code = 38857) 5.8 % HEMOGLOBIN [id number] 00:00:00 Test Item Value Reference Range Interpretation Comments HEMOGLOBIN A1c (test code = 50008) 5.8 % HEMOGLOBIN [id number] 00:00:00 Test Item Value Reference Range Interpretation Comments HEMOGLOBIN A1c (test code = 84800) 5.8 % [id number] 00:00:00 Test Item Value Reference Range Interpretation Comments TSH, THIRD GENERATION (test code 1.140 UIU/ML = 2821) [id number] 00:00:00 Test Item Value Reference Range Interpretation Comments TSH, THIRD GENERATION (test code 1.140 UIU/ML = 2821) [id number] 00:00:00 Test Item Value Reference Range Interpretation Comments TSH, THIRD GENERATION (test code 1.140 UIU/ML = 2821) HIV AB/AG COMBO RFLX [id number] 00:00:00 Test Item Value Reference Range Interpretation Comments HIV 1/2 4TH GEN, RFLX CONF (test NON-REACTIVE code = 3514) HIV AB/AG COMBO RFLX [id number] 00:00:00 Test Item Value Reference Range Interpretation Comments HIV 1/2 4TH GEN, RFLX CONF (test NON-REACTIVE code = 3514) ACUTE HEPATITIS [id number] 00:00:00 Test Item Value Reference Range Interpretation Comments HEPATITIS A IgM (test code = NON-REACTIVE 97846) HEPATITIS B CORE IgM (test code NON-REACTIVE = 4644) HEPATITIS B SURF AG (test code = NON-REACTIVE 2739) HEPATITIS C ANTIBODY (test code NON-REACTIVE = 4675) INTERPRETATION HEPATITIS A: (NOTE) (test code = 2552) INTERPRETATION HEPATITIS B: (NOTE) (test code = 87610) INTERPRETATION HEPATITIS C: (NOTE) (test code = 36699) ACUTE HEPATITIS [id number] 00:00:00 Test Item Value Reference Range Interpretation Comments HEPATITIS A IgM (test code = NON-REACTIVE 56068) HEPATITIS B CORE IgM (test code NON-REACTIVE = 4644) HEPATITIS B SURF AG (test code = NON-REACTIVE 2739) HEPATITIS C ANTIBODY (test code NON-REACTIVE = 4675) INTERPRETATION HEPATITIS A: (NOTE) (test code = 2552) INTERPRETATION HEPATITIS B: (NOTE) (test code = 37390) INTERPRETATION HEPATITIS C: (NOTE) (test code = 69264) CULTURE, [id number] 11:47:23SPECIMEN NUMBER: [id number] CULTURE, URINE SPECIMEN NUMBER: [id number] SPECIMEN COMMENT: URINE SOURCE:URINE REPORT STATUS: FINAL FINAL REPORT: 12/08/2021 NO GROWTH AFTER 36 HOURS INCUBATION UNLESS OTHERW ISE INDICATED, ALL TESTING PERFORMED ATCLINICAL PATHOLOGY [facility] [address] [place], [place] [id number] FIRE PREVENTION INSPECTOR: Angélica GONZALEZIA NUMBER [id number] [place]. [id number], [id number] 00:00:00 Test Item Value Reference Range Interpretation Comments CULTURE, URINE (test SPECIMEN NUMBER: code = 62525) [id number] CULTURE, [id number] 00:00:00 Test Item Value Reference Range Interpretation Comments CULTURE, URINE (test SPECIMEN NUMBER: code = 28962) [id number] VAGINAL PATHOGENS DNA [id number] 14:37:35 Test Item Value Reference Range Interpretation Comments FORTUNATO SPECIES (test POSITIVE NEGATIVE A code = 24590) G. VAGINALIS (test NEGATIVE NEGATIVE code = 70984) T. VAGINALIS (test NEGATIVE NEGATIVE UNLESS O THERWISE code = 63158) INDICATED, ALL TESTING PERFORMED [facility] PATHOLOGY [facility], [place] [id number] LABORATORY DIRE CTOR: RAUL KIRBY M.D. CLIA NUMBER [id number] [facility] [place] [id number] VAGINAL PATHOGENS DNA [id number] 00:00:00 Test Item Value Reference Range Interpretation Comments FORTUNATO SPECIES (test code = 29259) POSITIVE G. VAGINALIS (test code = 06256) NEGATIVE T. VAGINALIS (test code = 04565) NEGATIVE VAGINAL PATHOGENS DNA [id number] 00:00:00 Test Item Value Reference Range Interpretation Comments FORTUNATO SPECIES (test code = 69480) POSITIVE G. VAGINALIS (test code = 69164) NEGATIVE T. VAGINALIS (test code = 05149) NEGATIVE SARS-CoV-2 (COVID-19), RT-[id number] 15:39:22 Test Item Value Reference Interpretation Comments Range SARS-CoV-2 NEGATIVE SEE NOTE SARS-CoV-2 RNA NOT INTERPRETATION DETECTEDNegat roz (test code = 38261) results do not preclude SARS-CoV-2 infe ction [...] code = NOT SPECIF[place]: [place] [address]) Pratima Lisha [place] l-Time RT-PCR. The exp ected result or refer ence range is NEGATI VE (Not Detected). For more information reg arding COVID-19 testin g to include clinicalinforma tion, methodology det ail, intended use, F DA authorization andrecommended fact sheets for elie ents or healthcare prov iders, see NewTest Announcement: SARS-CoV-2 (COV ID-19) by NAAT at URL below (note,fact shee ts are provided by met hod given in report:[email or web address] [email or web address] Alternatively, see downloadable PD F fact sheet at:[email or web address] -PCR UNLESS OTHERWIS E INDICATED, ALL TESTING PERFORMED [facility] [address] [place] [address] 4 LABORATORY DIRE CTOR: RAUL KIRBY M.D. CLIA NUMBER [id number] [place] [id number] SARS-CoV-2 (COVID-19) by RT-PCR (HIGH RISK)2021-10-12 00:00:00 Test Item Value Reference Range Interpretation Comments SARS-CoV-2 INTERPRETATION (test NEGATIVE code = 95892) SOURCE (test code = 57415) NOT SPECIFIED SARS-CoV-2 (COVID-19) by RT-PCR (HIGH RISK)2021-10-12 00:00:00 Test Item Value Reference Range Interpretation Comments SARS-CoV-2 INTERPRETATION (test NEGATIVE code = 24726) SOURCE (test code = 01983) NOT SPECIFIED CULTURE, [id number] 00:00:00 Test Item Value Reference Range Interpretation Comments CULTURE, URINE (test SPECIMEN NUMBER: code = 20763) [id number] CULTURE, [id number] 00:00:00 Test Item Value Reference Range Interpretation Comments CULTURE, URINE (test SPECIMEN NUMBER: code = 26887) [id number] HEMOGLOBIN [id number] 00:00:00 Test Item Value Reference Range Interpretation Comments HEMOGLOBIN A1c (test code = 83826) 5.3 % HEMOGLOBIN [id number] 00:00:00 Test Item Value Reference Range Interpretation Comments HEMOGLOBIN A1c (test code = 30972) 5.3 % HEMOGLOBIN [id number] 00:00:00 Test Item Value Reference Range Interpretation Comments HEMOGLOBIN A1c (test code = 65078) 5.3 % COMPREHENSIVE METABOLIC [id number] 00:00:00 Test Item Value Reference Range Interpretation Comments GLUCOSE (test code = 2217) 102 MG/DL BUN (test code = 2208) 9 MG/DL CREATININE (test code = 2214) 0.82 MG/DL eGFR AMER. (test code 90 ML/MIN/1.73 = 53566) eGFR NON- AMER. (test 78 ML/MIN/1.73 code = 93698) CALC BUN/CREAT (test code = 11 RATIO 2235) SODIUM (test code = 2231) 135 MEQ/L POTASSIUM (test code = 2228) 4.1 MEQ/L CHLORIDE (test code = 2215) 97 MEQ/L CARBON DIOXIDE (test code = 26 MEQ/L 2205) CALCIUM (test code = 2209) 9.6 MG/DL PROTEIN, TOTAL (test code = 7.4 G/DL 2228) ALBUMIN (test code = 2201) 4.6 G/DL CALC GLOBULIN (test code = 2.8 G/DL 0) CALC A/G RATIO (test code = 1.6 RATIO 4) BILIRUBIN, TOTAL (test code = 0.4 MG/DL 2206) ALKALINE PHOSPHATASE (test 91 U/L code = 2204) AST (test code = 2218) 28 U/L ALT (test code = 2219) 25 U/L COMPREHENSIVE METABOLIC [id number] 00:00:00 Test Item Value Reference Range Interpretation Comments GLUCOSE (test code = 2217) 102 MG/DL BUN (test code = 2208) 9 MG/DL CREATININE (test code = 2214) 0.82 MG/DL eGFR AMER. (test code 90 ML/MIN/1.73 = 03250) eGFR NON- AMER. (test 78 ML/MIN/1.73 code = 25701) CALC BUN/CREAT (test code = 11 RATIO 2235) SODIUM (test code = 2231) 135 MEQ/L POTASSIUM (test code = 2228) 4.1 MEQ/L CHLORIDE (test code = 2215) 97 MEQ/L CARBON DIOXIDE (test code = 26 MEQ/L 2205) CALCIUM (test code = 2209) 9.6 MG/DL PROTEIN, TOTAL (test code = 7.4 G/DL 2228) ALBUMIN (test code = 2201) 4.6 G/DL CALC GLOBULIN (test code = 2.8 G/DL 2239) CALC A/G RATIO (test code = 1.6 RATIO 2233) BILIRUBIN, TOTAL (test code = 0.4 MG/DL 2206) ALKALINE PHOSPHATASE (test 91 U/L code = 2204) AST (test code = 2218) 28 U/L ALT (test code = 2219) 25 U/L CBC W/AUTO [id number] 00:00:00 Test Item Value Reference Range Interpretation Comments WBC (test code = 1001) 7.0 K/UL RBC (test code = 1002) 4.35 M/UL HEMOGLOBIN (test code = 1003) 15.0 G/DL HEMATOCRIT (test code = 1004) 42.4 % MCV (test code = 1005) 97.5 fL MCH (test code = 1006) 34.5 PG MCHC (test code = 1007) 35.4 G/DL RDW (test code = 1038) 12.6 % NEUTROPHILS (test code = 1008) 65.6 % LYMPHOCYTES (test code = 1010) 23.1 % MONOCYTES (test code = 1011) 8.6 % EOSINOPHILS (test code = 1012) 1.0 % BASOPHILS (test code = 1013) 0.7 % IMMATURE GRANULOCYTES (test 1.0 % code = 1036) NUCLEATED RBCS (test code = 0.0 /100WBC'S 1065) PLATELET COUNT (test code = 269 K/UL 1015) ABSOLUTE NEUTROPHILS (test code 4.56 K/UL = 1066) ABSOLUTE LYMPHOCYTES (test code 1.61 K/UL = 1067) ABSOLUTE MONOCYTES (test code = 0.60 K/UL 1068) ABSOLUTE EOSINOPHILS (test code 0.07 K/UL = 1040) ABSOLUTE BASOPHILS (test code = 0.05 K/UL 1069) ABS IMMATURE GRANULOCYTES (test 0.07 K/UL code = 1020) ABS NUCLEATED RBCS (test code = 0.00 K/UL 03459) CBC W/AUTO [id number] 00:00:00 Test Item Value Reference Range Interpretation Comments WBC (test code = 1001) 7.0 K/UL RBC (test code = 1002) 4.35 M/UL HEMOGLOBIN (test code = 1003) 15.0 G/DL HEMATOCRIT (test code = 1004) 42.4 % MCV (test code = 1005) 97.5 fL MCH (test code = 1006) 34.5 PG MCHC (test code = 1007) 35.4 G/DL RDW (test code = 1038) 12.6 % NEUTROPHILS (test code = 1008) 65.6 % LYMPHOCYTES (test code = 1010) 23.1 % MONOCYTES (test code = 1011) 8.6 % EOSINOPHILS (test code = 1012) 1.0 % BASOPHILS (test code = 1013) 0.7 % IMMATURE GRANULOCYTES (test 1.0 % code = 1036) NUCLEATED RBCS (test code = 0.0 /100WBC'S 1065) PLATELET COUNT (test code = 269 K/UL 1015) ABSOLUTE NEUTROPHILS (test code 4.56 K/UL = 1066) ABSOLUTE LYMPHOCYTES (test code 1.61 K/UL = 1067) ABSOLUTE MONOCYTES (test code = 0.60 K/UL 1068) ABSOLUTE EOSINOPHILS (test code 0.07 K/UL = 1040) ABSOLUTE BASOPHILS (test code = 0.05 K/UL 1069) ABS IMMATURE GRANULOCYTES (test 0.07 K/UL code = 1020) ABS NUCLEATED RBCS (test code = 0.00 K/UL 87825) CBC W/AUTO [id number] 00:00:00 Test Item Value Reference Range Interpretation Comments WBC (test code = 1001) 7.0 K/UL RBC (test code = 1002) 4.35 M/UL HEMOGLOBIN (test code = 1003) 15.0 G/DL HEMATOCRIT (test code = 1004) 42.4 % MCV (test code = 1005) 97.5 fL MCH (test code = 1006) 34.5 PG MCHC (test code = 1007) 35.4 G/DL RDW (test code = 1038) 12.6 % NEUTROPHILS (test code = 1008) 65.6 % LYMPHOCYTES (test code = 1010) 23.1 % MONOCYTES (test code = 1011) 8.6 % EOSINOPHILS (test code = 1012) 1.0 % BASOPHILS (test code = 1013) 0.7 % IMMATURE GRANULOCYTES (test 1.0 % code = 1036) NUCLEATED RBCS (test code = 0.0 /100WBC'S 1065) PLATELET COUNT (test code = 269 K/UL 1015) ABSOLUTE NEUTROPHILS (test code 4.56 K/UL = 1066) ABSOLUTE LYMPHOCYTES (test code 1.61 K/UL = 1067) ABSOLUTE MONOCYTES (test code = 0.60 K/UL 1068) ABSOLUTE EOSINOPHILS (test code 0.07 K/UL = 1040) ABSOLUTE BASOPHILS (test code = 0.05 K/UL 1069) ABS IMMATURE GRANULOCYTES (test 0.07 K/UL code = 1020) ABS NUCLEATED RBCS (test code = 0.00 K/UL 39075) LIPID [id number] 00:00:00 Test Item Value Reference Range Interpretation Comments CHOLESTEROL (test code = 2210) 178 MG/DL TRIGLYCERIDES (test code = 2232) 154 MG/DL HDL CHOLESTEROL (test code = 2220) 55 MG/DL CALC LDL CHOL (test code = 2237) 97 MG/DL RISK RATIO LDL/HDL (test code = 1.76 RATIO 2238) LIPID [id number] 00:00:00 Test Item Value Reference Range Interpretation Comments CHOLESTEROL (test code = 2210) 178 MG/DL TRIGLYCERIDES (test code = 2232) 154 MG/DL HDL CHOLESTEROL (test code = 2220) 55 MG/DL CALC LDL CHOL (test code = 2237) 97 MG/DL RISK RATIO LDL/HDL (test code = 1.76 RATIO 2238) [id number] 00:00:00 Test Item Value Reference Range Interpretation Comments TSH, THIRD GENERATION (test code 1.820 UIU/ML = 2821) [id number] 00:00:00 Test Item Value Reference Range Interpretation Comments TSH, THIRD GENERATION (test code 1.820 UIU/ML = 2821) [id number] 00:00:00 Test Item Value Reference Range Interpretation Comments TSH, THIRD GENERATION (test code 1.820 UIU/ML = 2821) CULTURE, [id number] 00:00:00 Test Item Value Reference Range Interpretation Comments CULTURE, URINE (test SPECIMEN NUMBER: code = 54435) [id number] CULTURE, [id number] 00:00:00 Test Item Value Reference Range Interpretation Comments CULTURE, URINE (test SPECIMEN NUMBER: code = 45305) [id number] SARS-CoV-2 (COVID-19) by RT-PCR (HIGH RISK)2021-03-18 00:00:00 Test Item Value Reference Range Interpretation Comments SARS-CoV-2 INTERPRETATION (test NEGATIVE code = 05807) SOURCE (test code = 42047) NOT SPECIFIED SARS-CoV-2 (COVID-19) by RT-PCR (HIGH RISK)2021-03-18 00:00:00 Test Item Value Reference Range Interpretation Comments SARS-CoV-2 INTERPRETATION (test NEGATIVE code = 17374) SOURCE (test code = 68717) NOT SPECIFIED COMPREHENSIVE METABOLIC [id number] 00:00:00 Test Item Value Reference Range Interpretation Comments GLUCOSE (test code = 2217) 101 MG/DL BUN (test code = 2208) 7 MG/DL CREATININE (test code = 2214) 0.74 MG/DL eGFR AMER. (test code 103 ML/MIN/1.73 = 03964) eGFR NON- AMER. (test 89 ML/MIN/1.73 code = 18754) CALC BUN/CREAT (test code = 9 RATIO 2235) SODIUM (test code = 2231) 136 MEQ/L POTASSIUM (test code = 2228) 4.5 MEQ/L CHLORIDE (test code = 2215) 99 MEQ/L CARBON DIOXIDE (test code = 27 MEQ/L 2205) CALCIUM (test code = 2209) 9.5 MG/DL PROTEIN, TOTAL (test code = 7.2 G/DL 2228) ALBUMIN (test code = 2201) 4.5 G/DL CALC GLOBULIN (test code = 2.7 G/DL 2239) CALC A/G RATIO (test code = 1.7 RATIO 2233) BILIRUBIN, TOTAL (test code = 0.3 MG/DL 2206) ALKALINE PHOSPHATASE (test 106 U/L code = 2204) AST (test code = 2218) 18 U/L ALT (test code = 2219) 16 U/L COMPREHENSIVE METABOLIC [id number] 00:00:00 Test Item Value Reference Range Interpretation Comments GLUCOSE (test code = 2217) 101 MG/DL BUN (test code = 2208) 7 MG/DL CREATININE (test code = 2214) 0.74 MG/DL eGFR AMER. (test code 103 ML/MIN/1.73 = 48079) eGFR NON- AMER. (test 89 ML/MIN/1.73 code = 25826) CALC BUN/CREAT (test code = 9 RATIO 2235) SODIUM (test code = 2231) 136 MEQ/L POTASSIUM (test code = 2228) 4.5 MEQ/L CHLORIDE (test code = 2215) 99 MEQ/L CARBON DIOXIDE (test code = 27 MEQ/L 2205) CALCIUM (test code = 2209) 9.5 MG/DL PROTEIN, TOTAL (test code = 7.2 G/DL 2228) ALBUMIN (test code = 2201) 4.5 G/DL CALC GLOBULIN (test code = 2.7 G/DL 0) CALC A/G RATIO (test code = 1.7 RATIO 4) BILIRUBIN, TOTAL (test code = 0.3 MG/DL 2206) ALKALINE PHOSPHATASE (test 106 U/L code = 2204) AST (test code = 2218) 18 U/L ALT (test code = 2219) 16 U/L LIPID [id number] 00:00:00 Test Item Value Reference Range Interpretation Comments CHOLESTEROL (test code = 2210) 168 MG/DL TRIGLYCERIDES (test code = 2232) 120 MG/DL HDL CHOLESTEROL (test code = 2220) 54 MG/DL CALC LDL CHOL (test code = 2237) 92 MG/DL RISK RATIO LDL/HDL (test code = 1.70 RATIO 2238) LIPID [id number] 00:00:00 Test Item Value Reference Range Interpretation Comments CHOLESTEROL (test code = 2210) 168 MG/DL TRIGLYCERIDES (test code = 2232) 120 MG/DL HDL CHOLESTEROL (test code = 2220) 54 MG/DL CALC LDL CHOL (test code = 2237) 92 MG/DL RISK RATIO LDL/HDL (test code = 1.70 RATIO 2238) HEMOGLOBIN [id number] 00:00:00 Test Item Value Reference Range Interpretation Comments HEMOGLOBIN A1c (test code = 10110) 5.2 % HEMOGLOBIN [id number] 00:00:00 Test Item Value Reference Range Interpretation Comments HEMOGLOBIN A1c (test code = 69457) 5.2 % HEMOGLOBIN [id number] 00:00:00 Test Item Value Reference Range Interpretation Comments HEMOGLOBIN A1c (test code = 95313) 5.2 % VAGINAL PATHOGENS DNA [id number] 00:00:00 Test Item Value Reference Range Interpretation Comments FORTUNATO SPECIES (test code = ) NEGATIVE G. VAGINALIS (test code = 75157) NEGATIVE T. VAGINALIS (test code = ) NEGATIVE VAGINAL PATHOGENS DNA [id number] 00:00:00 Test Item Value Reference Range Interpretation Comments FORTUNATO SPECIES (test code = ) NEGATIVE G. VAGINALIS (test code = 06842) NEGATIVE T. VAGINALIS (test code = 76203) NEGATIVE CULTURE, [id number] 00:00:00 Test Item Value Reference Range Interpretation Comments CULTURE, URINE (test SPECIMEN NUMBER: code = 95859) [id number] CULTURE, [id number] 00:00:00 Test Item Value Reference Range Interpretation Comments CULTURE, URINE (test SPECIMEN NUMBER: code = 65255) [id number] VAGINAL PATHOGENS DNA [id number] 00:00:00 Test Item Value Reference Range Interpretation Comments FORTUNATO SPECIES (test code = ) POSITIVE G. VAGINALIS (test code = 68854) NEGATIVE T. VAGINALIS (test code = 79245) NEGATIVE COMPREHENSIVE METABOLIC [id number] 00:00:00 Test Item Value Reference Range Interpretation Comments GLUCOSE (test code = 2217) 98 MG/DL BUN (test code = 2208) 11 MG/DL CREATININE (test code = 2214) 0.86 MG/DL eGFR AMER. (test code 86 ML/MIN/1.73 = 26728) eGFR NON- AMER. (test 74 ML/MIN/1.73 code = 08585) CALC BUN/CREAT (test code = 13 RATIO 2235) SODIUM (test code = 2231) 138 MEQ/L POTASSIUM (test code = 2228) 4.3 MEQ/L CHLORIDE (test code = 2215) 98 MEQ/L CARBON DIOXIDE (test code = 26 MEQ/L 2205) CALCIUM (test code = 2209) 9.5 MG/DL PROTEIN, TOTAL (test code = 7.5 G/DL 2228) ALBUMIN (test code = 2201) 4.4 G/DL CALC GLOBULIN (test code = 3.1 G/DL 2240) CALC A/G RATIO (test code = 1.4 RATIO 2234) BILIRUBIN, TOTAL (test code = <0.2 MG/DL 2206) ALKALINE PHOSPHATASE (test 91 U/L code = 220) AST (test code = 2218) 23 U/L ALT (test code = 2219) 18 U/L VAGINAL PATHOGENS DNA [id number] 00:00:00 Test Item Value Reference Range Interpretation Comments FORTUNATO SPECIES (test code = ) POSITIVE G. VAGINALIS (test code = ) NEGATIVE T. VAGINALIS (test code = ) NEGATIVE COMPREHENSIVE METABOLIC [id number] 00:00:00 Test Item Value Reference Range Interpretation Comments GLUCOSE (test code = 2217) 98 MG/DL BUN (test code = 2208) 11 MG/DL CREATININE (test code = 2214) 0.86 MG/DL eGFR AMER. (test code 86 ML/MIN/1.73 = 08434) eGFR NON- AMER. (test 74 ML/MIN/1.73 code = 84880) CALC BUN/CREAT (test code = 13 RATIO 2235) SODIUM (test code = 2231) 138 MEQ/L POTASSIUM (test code = 2228) 4.3 MEQ/L CHLORIDE (test code = 2215) 98 MEQ/L CARBON DIOXIDE (test code = 26 MEQ/L 2205) CALCIUM (test code = 2209) 9.5 MG/DL PROTEIN, TOTAL (test code = 7.5 G/DL 2228) ALBUMIN (test code = 2201) 4.4 G/DL CALC GLOBULIN (test code = 3.1 G/DL 2240) CALC A/G RATIO (test code = 1.4 RATIO 2234) BILIRUBIN, TOTAL (test code = <0.2 MG/DL 2206) ALKALINE PHOSPHATASE (test 91 U/L code = 2204) AST (test code = 2218) 23 U/L ALT (test code = 2219) 18 U/L LIPID [id number] 00:00:00 Test Item Value Reference Range Interpretation Comments CHOLESTEROL (test code = 2210) 166 MG/DL TRIGLYCERIDES (test code = 2232) 163 MG/DL HDL CHOLESTEROL (test code = 2220) 43 MG/DL CALC LDL CHOL (test code = 2237) 90 MG/DL RISK RATIO LDL/HDL (test code = 2.10 RATIO 2238) LIPID [id number] 00:00:00 Test Item Value Reference Range Interpretation Comments CHOLESTEROL (test code = 2210) 166 MG/DL TRIGLYCERIDES (test code = 2232) 163 MG/DL HDL CHOLESTEROL (test code = 2220) 43 MG/DL CALC LDL CHOL (test code = 2237) 90 MG/DL RISK RATIO LDL/HDL (test code = 2.10 RATIO 2238) CBC W/AUTO [id number] 00:00:00 Test Item Value Reference Range Interpretation Comments WBC (test code = 1001) 6.9 K/UL RBC (test code = 1002) 4.26 M/UL HEMOGLOBIN (test code = 1003) 13.8 G/DL HEMATOCRIT (test code = 1004) 40.2 % MCV (test code = 1005) 94.4 fL MCH (test code = 1006) 32.4 PG MCHC (test code = 1007) 34.3 G/DL RDW (test code = 1038) 11.9 % NEUTROPHILS (test code = 1008) 59.0 % LYMPHOCYTES (test code = 1010) 27.1 % MONOCYTES (test code = 1011) 9.4 % EOSINOPHILS (test code = 1012) 3.6 % BASOPHILS (test code = 1013) 0.9 % PLATELET COUNT (test code = 1015) 327 K/UL CBC W/AUTO [id number] 00:00:00 Test Item Value Reference Range Interpretation Comments WBC (test code = 1001) 6.9 K/UL RBC (test code = 1002) 4.26 M/UL HEMOGLOBIN (test code = 1003) 13.8 G/DL HEMATOCRIT (test code = 1004) 40.2 % MCV (test code = 1005) 94.4 fL MCH (test code = 1006) 32.4 PG MCHC (test code = 1007) 34.3 G/DL RDW (test code = 1038) 11.9 % NEUTROPHILS (test code = 1008) 59.0 % LYMPHOCYTES (test code = 1010) 27.1 % MONOCYTES (test code = 1011) 9.4 % EOSINOPHILS (test code = 1012) 3.6 % BASOPHILS (test code = 1013) 0.9 % PLATELET COUNT (test code = 1015) 327 K/UL CBC W/AUTO [id number] 00:00:00 Test Item Value Reference Range Interpretation Comments WBC (test code = 1001) 6.9 K/UL RBC (test code = 1002) 4.26 M/UL HEMOGLOBIN (test code = 1003) 13.8 G/DL HEMATOCRIT (test code = 1004) 40.2 % MCV (test code = 1005) 94.4 fL MCH (test code = 1006) 32.4 PG MCHC (test code = 1007) 34.3 G/DL RDW (test code = 1038) 11.9 % NEUTROPHILS (test code = 1008) 59.0 % LYMPHOCYTES (test code = 1010) 27.1 % MONOCYTES (test code = 1011) 9.4 % EOSINOPHILS (test code = 1012) 3.6 % BASOPHILS (test code = 1013) 0.9 % PLATELET COUNT (test code = 1015) 327 K/UL CULTURE, [id number] 00:00:00 Test Item Value Reference Range Interpretation Comments CULTURE, ROUTINE (test SPECIMEN NUMBER: code = 39057) [id number] CULTURE, [id number] 00:00:00 Test Item Value Reference Range Interpretation Comments CULTURE, ROUTINE (test SPECIMEN NUMBER: code = 34486) [id number] CULTURE, [id number] 00:00:00 Test Item Value Reference Range Interpretation Comments CULTURE, ROUTINE (test SPECIMEN NUMBER: code = 32416) [id number] VAGINAL PATHOGENS DNA [id number] 00:00:00 Test Item Value Reference Range Interpretation Comments FORTUNATO SPECIES (test code = ) POSITIVE G. VAGINALIS (test code = ) NEGATIVE T. VAGINALIS (test code = ) NEGATIVE VAGINAL PATHOGENS DNA [id number] 00:00:00 Test Item Value Reference Range Interpretation Comments FORTUNATO SPECIES (test code = ) POSITIVE G. VAGINALIS (test code = 53307) NEGATIVE T. VAGINALIS (test code = 36190) NEGATIVE VAGINAL PATHOGENS DNA [id number] 00:00:00 Test Item Value Reference Range Interpretation Comments FORTUNATO SPECIES (test code = ) POSITIVE G. VAGINALIS (test code = 33378) NEGATIVE T. VAGINALIS (test code = 76312) NEGATIVE VAGINAL PATHOGENS DNA [id number] 00:00:00 Test Item Value Reference Range Interpretation Comments FORTUNATO SPECIES (test code = ) POSITIVE G. VAGINALIS (test code = 32430) NEGATIVE T. VAGINALIS (test code = 30099) NEGATIVE CULTURE, [id number] 00:00:00 Test Item Value Reference Range Interpretation Comments CULTURE, URINE (test SPECIMEN NUMBER: code = 21274) [id number] CULTURE, [id number] 00:00:00 Test Item Value Reference Range Interpretation Comments CULTURE, URINE (test SPECIMEN NUMBER: code = 74231) [id number] VAGINAL PATHOGENS DNA [id number] 00:00:00 Test Item Value Reference Range Interpretation Comments FORTUNATO SPECIES (test code = ) NEGATIVE G. VAGINALIS (test code = 76181) NEGATIVE T. VAGINALIS (test code = 62502) NEGATIVE VAGINAL PATHOGENS DNA [id number] 00:00:00 Test Item Value Reference Range Interpretation Comments FORTUNATO SPECIES (test code = ) NEGATIVE G. VAGINALIS (test code = 99706) NEGATIVE T. VAGINALIS (test code = 23910) NEGATIVE GC AND CHLAMYDIA, AMPLIFIED, [id number] 00:00:00 Test Item Value Reference Range Interpretation Comments GONORRHEA, TMA (test code = 40460) NEGATIVE CHLAMYDIA, TMA (test code = 94419) NEGATIVE GC AND CHLAMYDIA, AMPLIFIED, [id number] 00:00:00 Test Item Value Reference Range Interpretation Comments GONORRHEA, TMA (test code = 09409) NEGATIVE CHLAMYDIA, TMA (test code = 03924) NEGATIVE VAGINAL PATHOGENS DNA [id number] 00:00:00 Test Item Value Reference Range Interpretation Comments FORTUNATO SPECIES (test code = 44726) NEGATIVE G. VAGINALIS (test code = 62479) POSITIVE T. VAGINALIS (test code = 54924) NEGATIVE VAGINAL PATHOGENS DNA [id number] 00:00:00 Test Item Value Reference Range Interpretation Comments FORTUNATO SPECIES (test code = 73911) NEGATIVE G. VAGINALIS (test code = ) POSITIVE T. VAGINALIS (test code = ) NEGATIVE PHILL (ANTI-NUCLEAR AB) WITH REFLEX [id number] 00:00:00 Test Item Value Reference Range Interpretation Comments ANTI-NUCLEAR ANTIBODIES (test code = NEGATIVE 3506) PHILL (ANTI-NUCLEAR AB) WITH REFLEX [id number] 00:00:00 Test Item Value Reference Range Interpretation Comments ANTI-NUCLEAR ANTIBODIES (test code = NEGATIVE 3506) URIC [id number] 00:00:00 Test Item Value Reference Range Interpretation Comments URIC ACID (test code = 2233) 4.9 MG/DL URIC [id number] 00:00:00 Test Item Value Reference Range Interpretation Comments URIC ACID (test code = 2233) 4.9 MG/DL RHEUMATOID FACTOR, [id number] 00:00:00 Test Item Value Reference Range Interpretation Comments RHEUMATOID FACTOR, QUANT (test code <10 IU/ML = 3502) RHEUMATOID FACTOR, [id number] 00:00:00 Test Item Value Reference Range Interpretation Comments RHEUMATOID FACTOR, QUANT (test code <10 IU/ML = 3502) RHEUMATOID FACTOR, [id number] 00:00:00 Test Item Value Reference Range Interpretation Comments RHEUMATOID FACTOR, QUANT (test code <10 IU/ML = 3502) VITAMIN D, 25 [id number] 00:00:00 Test Item Value Reference Range Interpretation Comments VITAMIN D, 25 OH (test code = 4958) 13 NG/ML VITAMIN D, 25 [id number] 00:00:00 Test Item Value Reference Range Interpretation Comments VITAMIN D, 25 OH (test code = 4958) 13 NG/ML FSH + LH [id number] 00:00:00 Test Item Value Reference Range Interpretation Comments FOLLICLE STIM HORMONE (test code = 45.6 IU/L 2700) LUTEINIZING HORMONE (test code = 35.2 IU/L 2776) FSH + LH [id number] 00:00:00 Test Item Value Reference Range Interpretation Comments FOLLICLE STIM HORMONE (test code = 45.6 IU/L 2700) LUTEINIZING HORMONE (test code = 35.2 IU/L 2776) [id number] 00:00:00 Test Item Value Reference Range Interpretation Comments ESTRADIOL (test code = 2505) 17.6 PG/ML [id number] 00:00:00 Test Item Value Reference Range Interpretation Comments ESTRADIOL (test code = 2505) 17.6 PG/ML [id number] 00:00:00 Test Item Value Reference Range Interpretation Comments ESTRADIOL (test code = 2505) 17.6 PG/ML HEMOGLOBIN [id number] 00:00:00 Test Item Value Reference Range Interpretation Comments HEMOGLOBIN A1c (test code = 79434) 5.1 % HEMOGLOBIN [id number] 00:00:00 Test Item Value Reference Range Interpretation Comments HEMOGLOBIN A1c (test code = 56494) 5.1 % HEMOGLOBIN [id number] 00:00:00 Test Item Value Reference Range Interpretation Comments HEMOGLOBIN A1c (test code = 41011) 5.1 % CBC W/AUTO [id number] 00:00:00 Test Item Value Reference Range Interpretation Comments WBC (test code = 1001) 5.6 K/UL RBC (test code = 1002) 4.25 M/UL HEMOGLOBIN (test code = 1003) 13.3 G/DL HEMATOCRIT (test code = 1004) 38.7 % MCV (test code = 1005) 91.1 fL MCH (test code = 1006) 31.3 PG MCHC (test code = 1007) 34.4 G/DL RDW (test code = 1038) 13.0 % NEUTROPHILS (test code = 1008) 65.5 % LYMPHOCYTES (test code = 1010) 23.4 % MONOCYTES (test code = 1011) 7.2 % EOSINOPHILS (test code = 1012) 3.2 % BASOPHILS (test code = 1013) 0.7 % PLATELET COUNT (test code = 1015) 253 K/UL CBC W/AUTO [id number] 00:00:00 Test Item Value Reference Range Interpretation Comments WBC (test code = 1001) 5.6 K/UL RBC (test code = 1002) 4.25 M/UL HEMOGLOBIN (test code = 1003) 13.3 G/DL HEMATOCRIT (test code = 1004) 38.7 % MCV (test code = 1005) 91.1 fL MCH (test code = 1006) 31.3 PG MCHC (test code = 1007) 34.4 G/DL RDW (test code = 1038) 13.0 % NEUTROPHILS (test code = 1008) 65.5 % LYMPHOCYTES (test code = 1010) 23.4 % MONOCYTES (test code = 1011) 7.2 % EOSINOPHILS (test code = 1012) 3.2 % BASOPHILS (test code = 1013) 0.7 % PLATELET COUNT (test code = 1015) 253 K/UL CBC W/AUTO [id number] 00:00:00 Test Item Value Reference Range Interpretation Comments WBC (test code = 1001) 5.6 K/UL RBC (test code = 1002) 4.25 M/UL HEMOGLOBIN (test code = 1003) 13.3 G/DL HEMATOCRIT (test code = 1004) 38.7 % MCV (test code = 1005) 91.1 fL MCH (test code = 1006) 31.3 PG MCHC (test code = 1007) 34.4 G/DL RDW (test code = 1038) 13.0 % NEUTROPHILS (test code = 1008) 65.5 % LYMPHOCYTES (test code = 1010) 23.4 % MONOCYTES (test code = 1011) 7.2 % EOSINOPHILS (test code = 1012) 3.2 % BASOPHILS (test code = 1013) 0.7 % PLATELET COUNT (test code = 1015) 253 K/UL COMPREHENSIVE METABOLIC [id number] 00:00:00 Test Item Value Reference Range Interpretation Comments GLUCOSE (test code = 2217) 109 MG/DL BUN (test code = 2208) 9 MG/DL CREATININE (test code = 2214) 0.69 MG/DL eGFR AMER. (test code 113 ML/MIN/1.73 = 46771) eGFR NON- AMER. (test 97 ML/MIN/1.73 code = 04444) CALC BUN/CREAT (test code = 13 RATIO 2235) SODIUM (test code = 2231) 137 MEQ/L POTASSIUM (test code = 2228) 4.5 MEQ/L CHLORIDE (test code = 2215) 96 MEQ/L CARBON DIOXIDE (test code = 27 MEQ/L 220) CALCIUM (test code = 2209) 9.6 MG/DL PROTEIN, TOTAL (test code = 7.2 G/DL 2228) ALBUMIN (test code = 2201) 4.4 G/DL CALC GLOBULIN (test code = 2.8 G/DL 224) CALC A/G RATIO (test code = 1.6 RATIO 2234) BILIRUBIN, TOTAL (test code = 0.4 MG/DL 2206) ALKALINE PHOSPHATASE (test 97 U/L code = 2204) AST (test code = 2218) 19 U/L ALT (test code = 2219) 11 U/L COMPREHENSIVE METABOLIC [id number] 00:00:00 Test Item Value Reference Range Interpretation Comments GLUCOSE (test code = 2217) 109 MG/DL BUN (test code = 2208) 9 MG/DL CREATININE (test code = 2214) 0.69 MG/DL eGFR AMER. (test code 113 ML/MIN/1.73 = 64835) eGFR NON- AMER. (test 97 ML/MIN/1.73 code = 51421) CALC BUN/CREAT (test code = 13 RATIO 2235) SODIUM (test code = 2231) 137 MEQ/L POTASSIUM (test code = 2228) 4.5 MEQ/L CHLORIDE (test code = 2215) 96 MEQ/L CARBON DIOXIDE (test code = 27 MEQ/L 2205) CALCIUM (test code = 2209) 9.6 MG/DL PROTEIN, TOTAL (test code = 7.2 G/DL 2228) ALBUMIN (test code = 2201) 4.4 G/DL CALC GLOBULIN (test code = 2.8 G/DL 2240) CALC A/G RATIO (test code = 1.6 RATIO 2234) BILIRUBIN, TOTAL (test code = 0.4 MG/DL 2206) ALKALINE PHOSPHATASE (test 97 U/L code = 2204) AST (test code = 2218) 19 U/L ALT (test code = 2219) 11 U/L THYROID II PROFILE (T3U, T4, T7, TSH)[id number] 00:00:00 Test Item Value Reference Range Interpretation Comments T-UPTAKE (test code = 2817) 36.1 % THYROX. BIND. CAPAC. (test code 0.9 = 93833) T4 (THYROXINE) (test code = 8.9 UG/DL 281) CORRECTED T4 (FTI) (test code = 9.9 UG/DL 2820) TSH (test code = 2821) 1.890 UIU/ML THYROID II PROFILE (T3U, T4, T7, TSH)[id number] 00:00:00 Test Item Value Reference Range Interpretation Comments T-UPTAKE (test code = 2817) 36.1 % THYROX. BIND. CAPAC. (test code 0.9 = 89437) T4 (THYROXINE) (test code = 8.9 UG/DL 2819) CORRECTED T4 (FTI) (test code = 9.9 UG/DL 2820) TSH (test code = 2821) 1.890 UIU/ML LIPID [id number] 00:00:00 Test Item Value Reference Range Interpretation Comments CHOLESTEROL (test code = 2210) 155 MG/DL TRIGLYCERIDES (test code = 2232) 73 MG/DL HDL CHOLESTEROL (test code = 2220) 67 MG/DL CALC LDL CHOL (test code = 2237) 73 MG/DL RISK RATIO LDL/HDL (test code = 1.10 RATIO 2238) LIPID [id number] 00:00:00 Test Item Value Reference Range Interpretation Comments CHOLESTEROL (test code = 2210) 155 MG/DL TRIGLYCERIDES (test code = 2232) 73 MG/DL HDL CHOLESTEROL (test code = 2220) 67 MG/DL CALC LDL CHOL (test code = 2237) 73 MG/DL RISK RATIO LDL/HDL (test code = 1.10 RATIO 2238) C-REACTIVE [id number] 00:00:00 Test Item Value Reference Range Interpretation Comments C-REACTIVE PROTEIN (test code = 0.8 MG/DL 3513) C-REACTIVE [id number] 00:00:00 Test Item Value Reference Range Interpretation Comments C-REACTIVE PROTEIN (test code = 0.8 MG/DL 3513) RHEUMATOID FACTOR, [id number] 00:00:00 Test Item Value Reference Range Interpretation Comments RHEUMATOID FACTOR, QUANT (test code <10 IU/ML = 3502) RHEUMATOID FACTOR, [id number] 00:00:00 Test Item Value Reference Range Interpretation Comments RHEUMATOID FACTOR, QUANT (test code <10 IU/ML = 3502) RHEUMATOID FACTOR, [id number] 00:00:00 Test Item Value Reference Range Interpretation Comments RHEUMATOID FACTOR, QUANT (test code <10 IU/ML = 3502) SEDIMENTATION [id number] 00:00:00 Test Item Value Reference Range Interpretation Comments SEDIMENTATION RATE (test code = 22 MM/HOUR 1017) SEDIMENTATION [id number] 00:00:00 Test Item Value Reference Range Interpretation Comments SEDIMENTATION RATE (test code = 22 MM/HOUR 1017) HEMOGLOBIN [id number] 00:00:00 Test Item Value Reference Range Interpretation Comments HEMOGLOBIN A1c (test code = 18147) 5.5 % HEMOGLOBIN [id number] 00:00:00 Test Item Value Reference Range Interpretation Comments HEMOGLOBIN A1c (test code = 80166) 5.5 % HEMOGLOBIN [id number] 00:00:00 Test Item Value Reference Range Interpretation Comments HEMOGLOBIN A1c (test code = 24144) 5.5 % CBC W/AUTO [id number] 00:00:00 Test Item Value Reference Range Interpretation Comments WBC (test code = 1001) 6.3 K/UL RBC (test code = 1002) 4.01 M/UL HEMOGLOBIN (test code = 1003) 13.3 G/DL HEMATOCRIT (test code = 1004) 38.7 % MCV (test code = 1005) 96.5 fL MCH (test code = 1006) 33.2 PG MCHC (test code = 1007) 34.4 G/DL RDW (test code = 1038) 11.6 % NEUTROPHILS (test code = 1008) 61.7 % LYMPHOCYTES (test code = 1010) 23.0 % MONOCYTES (test code = 1011) 11.5 % EOSINOPHILS (test code = 1012) 3.2 % BASOPHILS (test code = 1013) 0.6 % PLATELET COUNT (test code = 1015) 299 K/UL CBC W/AUTO [id number] 00:00:00 Test Item Value Reference Range Interpretation Comments WBC (test code = 1001) 6.3 K/UL RBC (test code = 1002) 4.01 M/UL HEMOGLOBIN (test code = 1003) 13.3 G/DL HEMATOCRIT (test code = 1004) 38.7 % MCV (test code = 1005) 96.5 fL MCH (test code = 1006) 33.2 PG MCHC (test code = 1007) 34.4 G/DL RDW (test code = 1038) 11.6 % NEUTROPHILS (test code = 1008) 61.7 % LYMPHOCYTES (test code = 1010) 23.0 % MONOCYTES (test code = 1011) 11.5 % EOSINOPHILS (test code = 1012) 3.2 % BASOPHILS (test code = 1013) 0.6 % PLATELET COUNT (test code = 1015) 299 K/UL CBC W/AUTO [id number] 00:00:00 Test Item Value Reference Range Interpretation Comments WBC (test code = 1001) 6.3 K/UL RBC (test code = 1002) 4.01 M/UL HEMOGLOBIN (test code = 1003) 13.3 G/DL HEMATOCRIT (test code = 1004) 38.7 % MCV (test code = 1005) 96.5 fL MCH (test code = 1006) 33.2 PG MCHC (test code = 1007) 34.4 G/DL RDW (test code = 1038) 11.6 % NEUTROPHILS (test code = 1008) 61.7 % LYMPHOCYTES (test code = 1010) 23.0 % MONOCYTES (test code = 1011) 11.5 % EOSINOPHILS (test code = 1012) 3.2 % BASOPHILS (test code = 1013) 0.6 % PLATELET COUNT (test code = 1015) 299 K/UL COMPREHENSIVE METABOLIC [id number] 00:00:00 Test Item Value Reference Range Interpretation Comments GLUCOSE (test code = 2217) 96 MG/DL BUN (test code = 2208) 7 MG/DL CREATININE (test code = 2214) 0.79 MG/DL eGFR AMER. (test code 98 ML/MIN/1.73 = 41263) eGFR NON- AMER. (test 84 ML/MIN/1.73 code = 23698) CALC BUN/CREAT (test code = 9 RATIO 2235) SODIUM (test code = 2231) 137 MEQ/L POTASSIUM (test code = 2228) 4.3 MEQ/L CHLORIDE (test code = 2215) 98 MEQ/L CARBON DIOXIDE (test code = 26 MEQ/L 2205) CALCIUM (test code = 2209) 9.3 MG/DL PROTEIN, TOTAL (test code = 7.2 G/DL 2228) ALBUMIN (test code = 2201) 4.3 G/DL CALC GLOBULIN (test code = 2.9 G/DL 2240) CALC A/G RATIO (test code = 1.5 RATIO 2234) BILIRUBIN, TOTAL (test code = 0.3 MG/DL 2206) ALKALINE PHOSPHATASE (test 86 U/L code = 2204) AST (test code = 2218) 26 U/L ALT (test code = 2219) 33 U/L COMPREHENSIVE METABOLIC [id number] 00:00:00 Test Item Value Reference Range Interpretation Comments GLUCOSE (test code = 2217) 96 MG/DL BUN (test code = 2208) 7 MG/DL CREATININE (test code = 2214) 0.79 MG/DL eGFR AMER. (test code 98 ML/MIN/1.73 = 43411) eGFR NON- AMER. (test 84 ML/MIN/1.73 code = 23805) CALC BUN/CREAT (test code = 9 RATIO 2235) SODIUM (test code = 2231) 137 MEQ/L POTASSIUM (test code = 2228) 4.3 MEQ/L CHLORIDE (test code = 2215) 98 MEQ/L CARBON DIOXIDE (test code = 26 MEQ/L 2205) CALCIUM (test code = 2209) 9.3 MG/DL PROTEIN, TOTAL (test code = 7.2 G/DL 2228) ALBUMIN (test code = 2201) 4.3 G/DL CALC GLOBULIN (test code = 2.9 G/DL 224) CALC A/G RATIO (test code = 1.5 RATIO 2234) BILIRUBIN, TOTAL (test code = 0.3 MG/DL 2206) ALKALINE PHOSPHATASE (test 86 U/L code = 2204) AST (test code = 2218) 26 U/L ALT (test code = 2219) 33 U/L LIPID [id number] 00:00:00 Test Item Value Reference Range Interpretation Comments CHOLESTEROL (test code = 2210) 118 MG/DL TRIGLYCERIDES (test code = 2232) 97 MG/DL HDL CHOLESTEROL (test code = 2220) 42 MG/DL CALC LDL CHOL (test code = 2237) 57 MG/DL RISK RATIO LDL/HDL (test code = 1.35 RATIO 2238) LIPID [id number] 00:00:00 Test Item Value Reference Range Interpretation Comments CHOLESTEROL (test code = 2210) 118 MG/DL TRIGLYCERIDES (test code = 2232) 97 MG/DL HDL CHOLESTEROL (test code = 2220) 42 MG/DL CALC LDL CHOL (test code = 2237) 57 MG/DL RISK RATIO LDL/HDL (test code = 1.35 RATIO 2238) THYROID II PROFILE (T3U, T4, T7, TSH)[id number] 00:00:00 Test Item Value Reference Range Interpretation Comments T3 UPTAKE (test code = 2817) 31.6 % T4 (THYROXINE) (test code = 7.7 UG/DL 2819) CALCULATED T7 (FTI) (test code = 2.43 2820) TSH (test code = 2821) 0.892 UIU/ML THYROID II PROFILE (T3U, T4, T7, TSH)2017-03-09 00:00:00 Test Item Value Reference Range Interpretation Comments T3 UPTAKE (test code = 2817) 31.6 % T4 (THYROXINE) (test code = 7.7 UG/DL 2819) CALCULATED T7 (FTI) (test code = 2.43 2820) TSH (test code = 2821) 0.892 UIU/ML COMPREHENSIVE METABOLIC [id number] 00:00:00 Test Item Value Reference Range Interpretation Comments GLUCOSE (test code = 2217) 108 MG/DL BUN (test code = 2208) 6 MG/DL CREATININE (test code = 2214) 0.72 MG/DL eGFR AMER. (test code 110 ML/MIN/1.73 = 84741) eGFR NON- AMER. (test 95 ML/MIN/1.73 code = 35001) CALC BUN/CREAT (test code = 8 RATIO 2235) SODIUM (test code = 2231) 138 MEQ/L POTASSIUM (test code = 2228) 4.5 MEQ/L CHLORIDE (test code = 2215) 95 MEQ/L CARBON DIOXIDE (test code = 24 MEQ/L 2206) CALCIUM (test code = 2209) 9.1 MG/DL PROTEIN, TOTAL (test code = 8.0 G/DL 2228) ALBUMIN (test code = 2201) 4.5 G/DL CALC GLOBULIN (test code = 3.5 G/DL 2240) CALC A/G RATIO (test code = 1.3 RATIO 2234) BILIRUBIN, TOTAL (test code = 0.2 MG/DL 2206) ALKALINE PHOSPHATASE (test 102 U/L code = 2204) AST (test code = 2218) 53 U/L ALT (test code = 2219) 51 U/L COMPREHENSIVE METABOLIC [id number] 00:00:00 Test Item Value Reference Range Interpretation Comments GLUCOSE (test code = 2217) 108 MG/DL BUN (test code = 2208) 6 MG/DL CREATININE (test code = 2214) 0.72 MG/DL eGFR AMER. (test code 110 ML/MIN/1.73 = 19197) eGFR NON- AMER. (test 95 ML/MIN/1.73 code = 61199) CALC BUN/CREAT (test code = 8 RATIO 2235) SODIUM (test code = 2231) 138 MEQ/L POTASSIUM (test code = 2228) 4.5 MEQ/L CHLORIDE (test code = 2215) 95 MEQ/L CARBON DIOXIDE (test code = 24 MEQ/L 2205) CALCIUM (test code = 2209) 9.1 MG/DL PROTEIN, TOTAL (test code = 8.0 G/DL 2228) ALBUMIN (test code = 2201) 4.5 G/DL CALC GLOBULIN (test code = 3.5 G/DL 224) CALC A/G RATIO (test code = 1.3 RATIO 223) BILIRUBIN, TOTAL (test code = 0.2 MG/DL 2206) ALKALINE PHOSPHATASE (test 102 U/L code = 2204) AST (test code = 2218) 53 U/L ALT (test code = 2219) 51 U/L LIPID [id number] 00:00:00 Test Item Value Reference Range Interpretation Comments CHOLESTEROL (test code = 2210) 224 MG/DL TRIGLYCERIDES (test code = 2232) 216 MG/DL HDL CHOLESTEROL (test code = 2220) 67 MG/DL CALC LDL CHOL (test code = 2237) 114 MG/DL RISK RATIO LDL/HDL (test code = 1.70 RATIO 2238) LIPID [id number] 00:00:00 Test Item Value Reference Range Interpretation Comments CHOLESTEROL (test code = 2210) 224 MG/DL TRIGLYCERIDES (test code = 2232) 216 MG/DL HDL CHOLESTEROL (test code = 2220) 67 MG/DL CALC LDL CHOL (test code = 2237) 114 MG/DL RISK RATIO LDL/HDL (test code = 1.70 RATIO 2238) COMPREHENSIVE METABOLIC [id number] 00:00:00 Test Item Value Reference Range Interpretation Comments GLUCOSE (test code = 2217) 92 MG/DL BUN (test code = 2208) 10 MG/DL CREATININE (test code = 2214) 0.8 MG/DL eGFR AMER. (test code 90 ML/MIN/1.73 = 31803) eGFR NON- AMER. (test 75 ML/MIN/1.73 code = 20728) CALCULATED BUN/CREAT (test 13 RATIO code = 2235) SODIUM (test code = 2231) 130 MEQ/L POTASSIUM (test code = 2228) 4.2 MEQ/L CHLORIDE (test code = 2215) 94 MEQ/L CARBON DIOXIDE (test code = 20 MEQ/L 2206) CALCIUM (test code = 2209) 9.6 MG/DL PROTEIN, TOTAL (test code = 7.7 G/DL 2228) ALBUMIN (test code = 2201) 4.5 G/DL CALCULATED GLOBULIN (test code 3.2 G/DL = 2240) CALCULATED A/G RATIO (test 1.4 RATIO code = 2234) BILIRUBIN, TOTAL (test code = 0.4 MG/DL 2206) ALKALINE PHOSPHATASE (test 99 U/L code = 220) SGOT (AST) (test code = 2218) 19 U/L SGPT (ALT) (test code = 2219) 18 U/L COMPREHENSIVE METABOLIC [id number] 00:00:00 Test Item Value Reference Range Interpretation Comments GLUCOSE (test code = 2217) 92 MG/DL BUN (test code = 2208) 10 MG/DL CREATININE (test code = 2214) 0.8 MG/DL eGFR AMER. (test code 90 ML/MIN/1.73 = 08740) eGFR NON- AMER. (test 75 ML/MIN/1.73 code = 06009) CALCULATED BUN/CREAT (test 13 RATIO code = 2235) SODIUM (test code = 2231) 130 MEQ/L POTASSIUM (test code = 2228) 4.2 MEQ/L CHLORIDE (test code = 2215) 94 MEQ/L CARBON DIOXIDE (test code = 20 MEQ/L 2206) CALCIUM (test code = 2209) 9.6 MG/DL PROTEIN, TOTAL (test code = 7.7 G/DL 2228) ALBUMIN (test code = 2201) 4.5 G/DL CALCULATED GLOBULIN (test code 3.2 G/DL = 2240) CALCULATED A/G RATIO (test 1.4 RATIO code = 2234) BILIRUBIN, TOTAL (test code = 0.4 MG/DL 2206) ALKALINE PHOSPHATASE (test 99 U/L code = 2204) SGOT (AST) (test code = 2218) 19 U/L SGPT (ALT) (test code = 2219) 18 U/L LIPID [id number] 00:00:00 Test Item Value Reference Range Interpretation Comments CHOLESTEROL (test code = 2210) 211 MG/DL TRIGLYCERIDES (test code = 2232) 129 MG/DL HDL CHOLESTEROL (test code = 2220) 75 MG/DL CALCULATED LDL CHOL (test code = 110 MG/DL 2237) RISK RATIO LDL/HDL (test code = 1.47 RATIO 2238) LIPID [id number] 00:00:00 Test Item Value Reference Range Interpretation Comments CHOLESTEROL (test code = 2210) 211 MG/DL TRIGLYCERIDES (test code = 2232) 129 MG/DL HDL CHOLESTEROL (test code = 2220) 75 MG/DL CALCULATED LDL CHOL (test code = 110 MG/DL 2237) RISK RATIO LDL/HDL (test code = 1.47 RATIO 2238) CBC W/AUTO [id number] 00:00:00 Test Item Value Reference Range Interpretation Comments WBC (test code = 1001) 7.7 K/UL RBC (test code = 1002) 4.44 M/UL HEMOGLOBIN (test code = 1003) 14.0 G/DL HEMATOCRIT (test code = 1004) 41.8 % MCV (test code = 1005) 94.1 fL MCH (test code = 1006) 31.5 PG MCHC (test code = 1007) 33.5 G/DL RDW (test code = 1038) 13.3 % NEUTROPHILS (test code = 1008) 68 % LYMPHOCYTES (test code = 1010) 21 % MONOCYTES (test code = 1011) 8 % EOSINOPHILS (test code = 1012) 2 % BASOPHILS (test code = 1013) 1 % PLATELET COUNT (test code = 1015) 277 K/UL CBC W/AUTO [id number] 00:00:00 Test Item Value Reference Range Interpretation Comments WBC (test code = 1001) 7.7 K/UL RBC (test code = 1002) 4.44 M/UL HEMOGLOBIN (test code = 1003) 14.0 G/DL HEMATOCRIT (test code = 1004) 41.8 % MCV (test code = 1005) 94.1 fL MCH (test code = 1006) 31.5 PG MCHC (test code = 1007) 33.5 G/DL RDW (test code = 1038) 13.3 % NEUTROPHILS (test code = 1008) 68 % LYMPHOCYTES (test code = 1010) 21 % MONOCYTES (test code = 1011) 8 % EOSINOPHILS (test code = 1012) 2 % BASOPHILS (test code = 1013) 1 % PLATELET COUNT (test code = 1015) 277 K/UL CBC W/AUTO [id number] 00:00:00 Test Item Value Reference Range Interpretation Comments WBC (test code = 1001) 7.7 K/UL RBC (test code = 1002) 4.44 M/UL HEMOGLOBIN (test code = 1003) 14.0 G/DL HEMATOCRIT (test code = 1004) 41.8 % MCV (test code = 1005) 94.1 fL MCH (test code = 1006) 31.5 PG MCHC (test code = 1007) 33.5 G/DL RDW (test code = 1038) 13.3 % NEUTROPHILS (test code = 1008) 68 % LYMPHOCYTES (test code = 1010) 21 % MONOCYTES (test code = 1011) 8 % EOSINOPHILS (test code = 1012) 2 % BASOPHILS (test code = 1013) 1 % PLATELET COUNT (test code = 1015) 277 K/UL HEMOGLOBIN [id number] 00:00:00 Test Item Value Reference Range Interpretation Comments HEMOGLOBIN A1c (test code = 27122) 5.6 % HEMOGLOBIN [id number] 00:00:00 Test Item Value Reference Range Interpretation Comments HEMOGLOBIN A1c (test code = 15239) 5.6 % HEMOGLOBIN [id number] 00:00:00 Test Item Value Reference Range Interpretation Comments HEMOGLOBIN A1c (test code = 15214) 5.6 % [id number] 00:00:00 Test Item Value Reference Range Interpretation Comments TSH (test code = 2821) 1.7 UIU/ML [id number] 00:00:00 Test Item Value Reference Range Interpretation Comments TSH (test code = 2821) 1.7 UIU/ML [id number] 00:00:00 Test Item Value Reference Range Interpretation Comments TSH (test code = 2821) 1.7 UIU/ML
[2022-08-13 18:55] LABS: Absolute Lymphocytes (CBC) 1.5 K/uL (0.7-4.9); Hematocrit 40.7 % (36.0-45.0); Lymphocytes % 21.2 % (15.3-44.8); MCV 98.7 fL (80-100); MPV 6.5 fL (7.6-11.3); RBC Red Blood Cell Count 4.13 M/uL (3.86-4.86)
[2022-08-13 19:07] LABS: Potassium 4.1 mmol/L (3.5-5.1); Troponin High Sensitivity 4.6 pg/mL (<58.9)
[2022-08-13 19:32] LABS: SARS-COV-2 RT PCR NEGATIVE (NEGATIVE)
--- NOTE | 2022-08-13 19:37 | RAD REPORT ---
EXAM DESCRIPTION: RAD - Chest Single View - 08/13/2022 7:29 pm CLINICAL HISTORY: SOB Chest pain. COMPARISON: Chest Single View dated 12/07/2021; Chest Single View dated 12/01/2021; Chest Single View dated 11/19/2021; Chest Single View dated 11/18/2021 FINDINGS: Portable technique limits examination quality. Mild interstitial pulmonary edema. The heart is mildly prominent in size. No displaced fractures. IMPRESSION: Mild CHF.
[2022-08-13] MEDS ORDERED: LEVALBUTEROL 1.25 MG/3 ML NEB ONE (19:42)
[2022-08-13] MEDS ORDERED: FUROSEMIDE 20 MG/ 2ML VIAL ONE (20:03)
[2022-08-13] MEDS ORDERED: LORazepam 2 MG/ML VIAL ONE (20:57)
--- NOTE | 2022-08-13 21:02 | ER ---
Nurse's Notes [facility] Name: Carmel Rodriguez Age: 62 yrs Sex: Female : 1960 Arrival Date: 08/13/2022 Time: 18:18 Bed 7 Private MD: Diagnosis: Acute pulmonary edema Presentation: 08/13 18:19 Chief complaint: EMS states: DIFF BREATHING SINCE LAST NIGHT, , no fever, no cough, iw denies n.v.d, diagnosed with fluid in lungs was supposed to see a contract clerk automobile , is having a hard time breathing in. Coronavirus screen: Client presents with at least one sign or symptom that may indicate coronavirus-19. Ebola Screen: Patient negative for fever greater than or equal to 101.5 degrees Fahrenheit, and additional compatible Ebola Virus Disease symptoms Patient denies exposure to infectious person. Patient denies travel to an Ebola-affected area in the 21 days before illness onset. No symptoms or risks identified at this time. Initial Sepsis Screen: Does the patient meet any 2 criteria? No. Patient's initial sepsis screen is negative. Does the patient have a suspected source of infection? No. Patient's initial sepsis screen is negative. Risk Assessment: Do you want to hurt yourself or someone else? Patient reports no desire to harm self or others. Onset of symptoms was August 12, 2022. 18:19 Method Of Arrival: EMS: [facility] iw 18:19 Acuity: CHRISTINE 3 iw Historical: - Allergies: 18:21 ACETAMINOPHEN; iw 18:21 CALCIUM CARBONATE; iw 18:21 EXCEDRIN; iw 18:21 Excedrin PM; iw 18:21 Ibuprofen; iw 18:21 NSAIDS; iw 18:21 Toradol; iw - Home Meds: 18:22 buspirone 10 mg Oral tab 3 tabs 2 times per day [Active]; hydralazine 50 mg Oral tab 1 iw tab 2 times per day [Active]; hydroxyzine HCl 50 mg Oral tab 1 tab daily [Active]; losartan 100 mg Oral tab 1 tab once daily [Active]; metoprolol tartrate 50 mg Oral tab 1 tab 2 times per day [Active]; mirtazapine 30 mg Oral tab 1 tab once daily [Active]; pantoprazole 40 mg Oral TbEC 1 tab once daily [Active]; Vitamin D2 50,000 unit Oral cap 06931 unit WEEKLY [Active]; - PMHx: 18:21 Depression; Hypertension; Anxiety; iw - PSHx: 18:21 section; iw - Immunization history:: Adult Immunizations unknown. - Social history:: Smoking status: Patient denies any tobacco usage or history of. Screenin:57 Abuse screen: Denies threats or abuse. Denies injuries from another. Nutritional as6 screening: No deficits noted. Tuberculosis screening: No symptoms or risk factors identified. Fall Risk None identified. Assessment: 19:59 General: Appears in no apparent distress. Behavior is calm, cooperative. Pain: Denies as6 pain. Respiratory: Reports shortness of breath. Vital Signs: 18:23 BP 160 / 85; Pulse 74; Resp 18; Temp 97.6; Pulse Ox 100% on R/A; Weight 115.21 kg; iw 19:59 BP 141 / 48; Pulse 76; Resp 17 S; Pulse Ox 100% on Nebulizer Mask; as6 21:19 BP 184 / 59; Pulse 90; Resp 18 S; Pulse Ox 100% on R/A; as6 ED Course: 18:18 Patient arrived in ED. iw 18:21 Triage completed. iw 18:21 Arm band placed on. iw 18:23 Nicho Whitlock PA is PHCP. jm 18:23 Vlad Peña MD is Attending Physician. jmm 18:38 Initial lab(s) drawn, by az, sent to lab. Inserted saline lock: 22 gauge in left iw antecubital area, using aseptic technique. Blood collected. 18:39 COVID-19/FLU A+B Sent. iw 18:46 COVID-19/FLU A+B Sent. iw 19:31 XRAY Chest (1 view) In Process Unspecified. EDMS 19:32 Doroteo Walker, MANDI is Primary Nurse. as6 19:58 Placed in gown. Bed in low position. Call light in reach. Side rails up X2. as6 21:01 Joselo Link MD is Referral Physician. jmm 21:19 No provider procedures requiring assistance completed. IV discontinued, intact, as6 bleeding controlled, No redness/swelling at site. Pressure dressing applied. Administered Medications: 19:46 Drug: Xopenex (levalbuterol) (3) 1.25 mg Route: Inhalation; as6 21:18 Follow up: Response: No adverse reaction as6 21:00 Drug: Lasix (furosemide) 20 mg Route: IVP; Site: left antecubital; as6 21:18 Follow up: Response: No adverse reaction as6 21:00 Drug: Ativan (LORazepam) 1 mg Route: IVP; Site: left antecubital; as6 21:19 Follow up: Response: No adverse reaction as6 Medication: 19:58 VIS not applicable for this client. as6 Outcome: 21:01 Discharge ordered by MD. pizano 21:19 Discharged to home ambulatory. as6 21:19 Condition: stable 21:19 Discharge instructions given to patient, Instructed on discharge instructions, follow up and referral plans. medication usage, Demonstrated understanding of instructions, follow-up care, medications, Prescriptions given X 2. 21:20 Patient left the ED. as6 Signatures: Dispatcher [employer] EDMS Nicho Whitlock PA PA jmm Williams, Irene, RN RN iw Slawson, Ashby, RN RN as6 Corrections: (The following items were deleted from the chart) 18:24 18:23 Resp 18bpm; Pulse Ox 100% RA; iw iw 18:24 18:23 Pulse 74bpm; Resp 18bpm; Pulse Ox 100% RA; Temp 97.6F; 115.21 kg; iw iw 18:25 18:23 Pulse 74bpm; Resp 18bpm; Pulse Ox 100% RA; Temp 97.6F; 115.21 kg; iw iw
--- NOTE | 2022-08-13 21:03 | EDPHYS ---
Physician Documentation [facility] Name: Carmel Rodriguez Age: 62 yrs Sex: Female : 1960 Arrival Date: 08/13/2022 Time: 18:18 Bed 7 Private MD: ED Physician Vlad Peña HPI: 08/13 18:24 This 62 yrs old Female presents to ER via EMS with complaints of Breathing jmm Difficulty. 18:24 The patient has shortness of breath at rest. Onset: The symptoms/episode began/occurred jmm gradually, today. Duration: The symptoms are continuous. This is a 62-year-old female with a history of depression, hypertension the presents emerged department with complaints of shortness of breath which began as she awoke. Patient was previously been diagnosed with pulmonary edema. Patient is not currently taking Lasix.. Historical: - Allergies: 18:21 ACETAMINOPHEN; iw 18:21 CALCIUM CARBONATE; iw 18:21 EXCEDRIN; iw 18:21 Excedrin PM; iw 18:21 Ibuprofen; iw 18:21 NSAIDS; iw 18:21 Toradol; iw - Home Meds: 18:22 buspirone 10 mg Oral tab 3 tabs 2 times per day [Active]; hydralazine 50 mg Oral tab 1 iw tab 2 times per day [Active]; hydroxyzine HCl 50 mg Oral tab 1 tab daily [Active]; losartan 100 mg Oral tab 1 tab once daily [Active]; metoprolol tartrate 50 mg Oral tab 1 tab 2 times per day [Active]; mirtazapine 30 mg Oral tab 1 tab once daily [Active]; pantoprazole 40 mg Oral TbEC 1 tab once daily [Active]; Vitamin D2 50,000 unit Oral cap 45796 unit WEEKLY [Active]; - PMHx: 18:21 Depression; Hypertension; Anxiety; iw - PSHx: 18:21 section; iw - Immunization history:: Adult Immunizations unknown. - Social history:: Smoking status: Patient denies any tobacco usage or history of. ROS: 18:24 Constitutional: Negative for fever, chills, and weight loss, Cardiovascular: Negative jmm for chest pain, palpitations, and edema. 18:24 Respiratory: Positive for shortness of breath. 18:24 All other systems are negative. Exam: 18:24 Constitutional: This is a well developed, well nourished patient who is awake, alert, jmm and in no acute distress. Head/Face: atraumatic. Eyes: EOMI, no conjunctival erythema appreciated ENT: Moist Mucus Membranes Neck: Trachea midline, Supple Chest/axilla: Normal chest wall appearance and motion. Cardiovascular: Regular rate and rhythm. No edema appreciated Respiratory: Normal respirations, no respiratory distress appreciated Abdomen/GI: Non distended Back: Normal ROM Skin: General appearance color normal MS/ Extremity: Moves all extremities, no obvious deformities appreciated, no edema noted to the lower extremities Neuro: Awake and alert Psych: Behavior is normal, Mood is normal, Patient is cooperative and pleasant Vital Signs: 18:23 BP 160 / 85; Pulse 74; Resp 18; Temp 97.6; Pulse Ox 100% on R/A; Weight 115.21 kg; iw 19:59 BP 141 / 48; Pulse 76; Resp 17 S; Pulse Ox 100% on Nebulizer Mask; as6 21:19 BP 184 / 59; Pulse 90; Resp 18 S; Pulse Ox 100% on R/A; as6 MDM: 18:25 Patient medically screened. [facility] 21:00 Data reviewed: vital signs, nurses notes. Counseling: I had a detailed discussion with [facility] the patient and/or guardian regarding: the historical points, exam findings, and any diagnostic results supporting the discharge/admit diagnosis, the need for outpatient follow up, to return to the emergency department if symptoms worsen or persist or if there are any questions or concerns that arise at home. ED course: Labs and imaging studies were negative. Will reinitiate Lasix. Advised to follow-up with pulmonology or CHF and otherwise given strict return precautions. Patient understood agrees plan of care. Team Supervisor was used. 08/13 18:24 Order name: Basic Metabolic Panel; Complete Time: 19:22 [facility] 08/13 18:24 Order name: CBC with Diff; Complete Time: 19:00 [facility] 08/13 18:24 Order name: Troponin HS; Complete Time: 19:22 [facility] 08/13 18:24 Order name: XRAY Chest (1 view); Complete Time: 19:40 [facility] 08/13 18:24 Order name: COVID-19/FLU A+B; Complete Time: 19:33 [facility] 08/13 18:24 Order name: EKG; Complete Time: 18:25 [facility] 08/13 18:24 Order name: Cardiac monitoring; Complete Time: 19:56 [facility] 08/13 18:24 Order name: EKG - Nurse/Tech; Complete Time: 19:56 [facility] 08/13 18:24 Order name: IV Saline Lock; Complete Time: 18:39 [facility] 08/13 18:24 Order name: Labs collected and sent; Complete Time: 18:39 [facility] 08/13 18:24 Order name: O2 Per Protocol; Complete Time: 19:56 [facility] 08/13 18:24 Order name: O2 Sat Monitoring; Complete Time: 19:56 [facility] Administered Medications: 19:46 Drug: Xopenex (levalbuterol) (3) 1.25 mg Route: Inhalation; as6 21:18 Follow up: Response: No adverse reaction as6 21:00 Drug: Lasix (furosemide) 20 mg Route: IVP; Site: left antecubital; as6 21:18 Follow up: Response: No adverse reaction as6 21:00 Drug: Ativan (LORazepam) 1 mg Route: IVP; Site: left antecubital; as6 21:19 Follow up: Response: No adverse reaction as6 Disposition: 08/14 07:31 Co-signature as Attending Physician, Vlad Peña MD I agree with the assessment and rt plan of care. Disposition Summary: 08/13/22 21:01 Discharge Ordered Location: Home [facility] Condition: Stable [facility] Diagnosis - Acute pulmonary edema [facility] Followup: [facility] - With: Joselo Link MD - When: 2 - 3 days - Reason: Recheck today's complaints, Continuance of care, Re-evaluation by your physician Discharge Instructions: - Discharge Summary Sheet [facility] - Pulmonary Edema [facility] Forms: - Medication Reconciliation Form [facility] - Thank You Letter [facility] - Antibiotic Education [facility] - Prescription Opioid Use [facility] Prescriptions: - Lasix 20 mg Oral Tablet - take 1 tablet by ORAL route once daily; 30 tablet; Refills: 0, Product [facility] Selection Permitted - Valium 5 mg Oral Tablet - take 1 tablet by ORAL route At bedtime As needed; 6 tablet; Refills: 0, Product [facility] Selection Permitted Signatures: Dispatcher [employer] Nicho Lima PA PA jmm Williams, Irene, RN RN iw Slawson, Ashby RN RN as6 Vlad Peña, MD rt
[2022-08-13 21:58] VITALS: TEMP 97.6; O2SAT 100
[2022-08-13 22:01] VITALS: BP 184/59
--- NOTE | 2022-08-14 13:48 | EKG ---
Test Date: 2022-08-13 Test Time: 19:52:02 Computer Publisher: MEASUREMENT RESULTS: Intervals: Rate: 73 [place]: 152 QRSD: 76 QT: 400 QTc: 440 [place]: P: 23 [place]: 152 QRS: 45 T: 5 INTERPRETIVE STATEMENTS: Normal sinus rhythm Normal ECG Compared to ECG 12/07/2021 20:05:14 No significant changes Electronically Signed On 08-14-22 13:46:52 [employer] by Lizandro Stewart
== END 2022-08-13 21:20 | disposition home or self-care (01) ==
LOC: ER 18:14
DX: J81.0 Acute pulmonary edema (principal); I10 Essential (primary) hypertension; F32.A Depression, unspecified; Z20.822 Contact with and (suspected) exposure to COVID-19; Z88.5 Allergy status to narcotic agent; Z88.6 Allergy status to analgesic agent; Z88.8 Allergy status to other drugs, medicaments and biological substances; Z91.048 Other nonmedicinal substance allergy status
CPT/HCPCS: 93005; 85025; 80048; 36415; 84484; 0240U; 71045; 96375; 96374; 99284; J1940; J7614

== ENCOUNTER 2024-02-27 16:44 | Observation (INO) | payer OTHER ==
[2024-02-27 17:28] LABS: Absolute Eosinophils 0.1 K/uL (0-0.5); Absolute Lymphocytes (CBC) 1.1 K/uL (0.7-4.9); Absolute Monocytes 0.7 K/uL (0.1-1.3); Absolute Neutrophil 7.7 K/uL (1.8-8.0); Basophils % 0.5 % (0-1.3); Eosinophils % 0.5 % (0-4.4); Hematocrit 41.5 % (36.0-45.0); Hemoglobin 14.4 g/dL (12.0-15.0); Lymphocytes % 11.7 % (15.3-44.8); MCH 34.9 pg (27.0-35.0); MCHC 34.6 g/dL (32.0-36.0); MCV 100.8 fL (80-100); MPV 6.7 fL (7.6-11.3); Monocytes % 7.1 % (3.3-12.3); Neutrophils % 80.2 % (41.7-73.7); Platelets 267 thou/uL (152-406); RBC Red Blood Cell Count 4.12 M/uL (3.86-4.86); Red Cell Distribution Width 12.5 % (12.1-15.2)
[2024-02-27] MEDS ORDERED: ASPIRIN 81 MG CHEWABLE TABLET ONE (17:29)
[2024-02-27 17:46] LABS: Albumin 3.7 g/dL (3.4-5.0); Albumin/Globulin Ratio 0.8 (1.1-1.8); Anion Gap 12.4 mEq/L (5.0-15.0); Bilirubin Direct 0.2 mg/dL (0-0.2); Bilirubin Indirect, Calculated 0.4 mg/dL (0.2-0.8); Bilirubin Total 0.6 mg/dL (0.2-1.0); Globulin 4.4 g/dL (2.3-3.5); Magnesium 1.8 mg/dL (1.6-2.4); Potassium 3.4 mEq/L (3.5-5.1); Protein, Total 8.1 g/dL (6.4-8.2); Troponin High Sensitivity 6.8 pg/mL (<58.9)
--- NOTE | 2024-02-27 18:35 | RAD REPORT ---
[facility] CLINICAL HISTORY: CHEST PAIN COMPARISON: Chest Single View dated 08/13/2022; Chest Single View dated 12/07/2021; Chest Single View dated 12/01/2021; Chest Single View dated 11/19/2021 TECHNIQUE: Portable AP view of the chest. FINDINGS: The lungs are clear. No pneumothorax or effusion. The cardiomediastinal contours are unre markable. IMPRESSION: No acute cardiopulmonary process.
--- NOTE | 2024-02-27 18:35 | ER ---
Nurse's Notes [facility] Name: Carmel Rodriguez Age: 63 yrs Sex: Female : 1960 Arrival Date: 02/27/2024 Time: 16:44 Bed 13 Private MD: Diagnosis: Hypo-osmolality and hyponatremia;Chest pain, unspecified Presentation: 02/26 16:57 Chief complaint: EMS states: Intermittent chest pain that started this morning. rs5 Coronavirus screen: At this time, the client does not indicate any symptoms associated with coronavirus-19. Ebola Screen: No symptoms or risks identified at this time. Initial Sepsis Screen: Does the patient meet any 2 criteria? No. Patient's initial sepsis screen is negative. Does the patient have a suspected source of infection? No. Patient's initial sepsis screen is negative. Risk Assessment: Do you want to hurt yourself or someone else? Patient reports no desire to harm self or others. Onset of symptoms was February 27, 2024. 16:57 Method Of Arrival: EMS: [facility] rs5 16:57 Acuity: CHRISTINE 2 rs5 Triage Assessment: 17:01 General: Appears in no apparent distress. uncomfortable, Behavior is calm, cooperative. rs5 Pain: Complains of pain in chest Pain currently is 3 out of 10 on a pain scale. Quality of pain is described as aching, Is continuous. Historical: - Allergies: 17:01 ACETAMINOPHEN; rs5 17:01 CALCIUM CARBONATE; rs5 17:01 EXCEDRIN; rs5 17:01 Excedrin PM; rs5 17:01 Ibuprofen; rs5 17:01 NSAIDS; rs5 17:01 Toradol; rs5 02/27 07:07 Aspirin; ll1 - PMHx: 02/26 17:01 Depression; Anxiety; Hypertension; rs5 - PSHx: 17:01 section; rs5 - Immunization history:: Adult Immunizations up to date. - Infectious Disease History:: Denies. - Social history:: Smoking status: Patient denies any tobacco usage or history of. Screenin:46 [facility] ED Fall Risk Assessment (Adult) History of falling in the last 3 months, rs5 including since admission No falls in past 3 months (0 pts) Confusion or Disorientation No (0 pts) Intoxicated or Sedated No (0 pts) Impaired Gait No (0 pts) Mobility Assist Device Used No (0 pt) Altered Elimination No (0 pt) Score/Fall Risk Level 0 - 2 = Low Risk Oriented to surroundings, Maintained a safe environment. Abuse screen: Denies threats or abuse. Nutritional screening: No deficits noted. Tuberculosis screening: No symptoms or risk factors identified. Assessment: 16:47 General: Appears in no apparent distress. uncomfortable, Behavior is calm, cooperative. rs5 Pain: Complains of pain in chest Pain currently is 3 out of 10 on a pain scale. Quality of pain is described as aching, Is continuous. Neuro: Level of Consciousness is awake, alert, obeys commands, Oriented to person, place, time, situation. Cardiovascular: Patient's skin is warm and dry. Rhythm is regular. Respiratory: Airway is patent Respiratory effort is even, unlabored, Respiratory pattern is regular, symmetrical. GI: Abdomen is round non-distended, Abd is soft and non tender X 4 quads. : No signs and/or symptoms were reported regarding the genitourinary system. EENT: No signs and/or symptoms were reported regarding the EENT system. Derm: Skin is intact, Skin is pink, warm \\T\\ dry. Musculoskeletal: Range of motion: intact in all extremities. 16:50 Reassessment: To bedside for med adm, pt states "I'm not allergic to aspirin". rs5 18:40 Reassessment: to bedside, swelling noted to pt's upper and lower eyelids, pt states "i rs5 feel my face is a little swolen" provider notified, verbal order by MD to adm 50 Benadryl and 20 mg famotidine . 18:44 Reassessment: to bedside for med adm, pt states "I am not allergic to Benadryl" . rs5 18:59 Reassessment: Patient and/or family updated on plan of care and expected duration. Pain rs5 level reassessed. Patient is alert, oriented x 3, equal unlabored respirations, skin warm/dry/pink. 19:18 Reassessment: Patient and/or family updated on plan of care and expected duration. Pain rs5 level reassessed. Patient is alert, oriented x 3, equal unlabored respirations, skin warm/dry/pink. Patient states feeling better. Patient states symptoms have improved. Vital Signs: 16:57 BP 154 / 71; Pulse 84; Resp 18; Temp 97.8; Pulse Ox 97% on R/A; rs5 ED Course: 16:45 Patient arrived in ED. sb4 16:46 Patient has correct armband on for positive identification. Placed in gown. Bed in low rs5 position. Call light in reach. Side rails up X2. 16:46 No provider procedures requiring assistance completed. rs5 16:48 Greg Serrano DO is Attending Physician. ms3 16:57 Giuseppe Weaver, RN is Primary Nurse. rs5 17:01 Triage completed. rs5 17:05 XRAY Chest (1 view) In Process Unspecified. EDMS 18:34 Rod Ordaz MD is Hospitalizing Provider. ms3 22:00 Inserted saline lock: 20 gauge in right antecubital area, using aseptic technique. ha1 Administered Medications: 16:55 Drug: Aspirin PO Chewable Tablet 324 mg PO once; 81 mg tablets x 4 Route: PO; rs5 18:50 Drug: Famotidine IVP 20 mg IVP once; dilute with 10 mL 0.9% NaCl; give over 2 minutes rs5 Route: IVP; Site: left antecubital; 18:50 Drug: diphenhydrAMINE IVP 50 mg IVP once Route: IVP; Site: left antecubital; rs5 Outcome: 18:34 Decision to Hospitalize by Provider. ms3 06/07 18:12 Patient left the ED. jr12 Signatures: Dispatcher [employer] EDMS Florian Monroe RN RN ll1 Greg Serrano DO DO ms3 Saloni Tellez RN RN ha1 Regine Soto, PA-C PA-C sb4 Giuseppe Weaver, RN RN rs5 July Noel jr12 Corrections: (The following items were deleted from the chart) 02/26 19:51 16:57 BP 154 / 71; Pulse 18bpm; Resp 18bpm; Pulse Ox 97% RA; Temp 97.8F; rs5 rs5
--- NOTE | 2024-02-27 18:35 | EDPHYS ---
Physician Documentation [facility] Name: Carmel Rodriguez Age: 63 yrs Sex: Female : 1960 Arrival Date: 02/27/2024 Time: 16:44 Bed 13 Private MD: ED Physician Greg Serrano HPI: 02/26 16:52 This 63 yrs old Female presents to ER via Unassigned with complaints of chest ms3 pain. 16:52 63-year-old female with past medical history of hypertension, anxiety presents to the [facility] emergency department from a [facility] for chest pain, headache, bilateral lower extremity edema that occurred 2 hours prior to arrival. Patient states her symptoms have improved since symptom onset. Patient states her chest pain is worse with movement and becomes worse with palpation of her sternum. [facility] states patient's blood pressure 170/90, heart rate 90-100.. Historical: - Allergies: 17:01 ACETAMINOPHEN; rs5 17:01 CALCIUM CARBONATE; rs5 17:01 EXCEDRIN; rs5 17:01 Excedrin PM; rs5 17:01 Ibuprofen; rs5 17:01 NSAIDS; rs5 17:01 Toradol; rs5 02/27 07:07 Aspirin; ll1 - PMHx: 02/26 17:01 Depression; Anxiety; Hypertension; rs5 - PSHx: 17:01 section; rs5 - Immunization history:: Adult Immunizations up to date. - Infectious Disease History:: Denies. - Social history:: Smoking status: Patient denies any tobacco usage or history of. ROS: 16:52 Constitutional: Negative for fever, and chills. Neck: Negative for injury, pain, and ms3 swelling, 16:52 Respiratory: Negative for shortness of breath, cough, wheezing, and pleuritic chest pain, Abdomen/GI: Negative for abdominal pain, nausea, vomiting, diarrhea, and constipation, Skin: Negative for injury, rash, and discoloration, 16:52 Cardiovascular: Positive for chest pain, edema, Exam: 16:52 Constitutional: This is a well developed, well nourished patient who is awake, alert, ms3 and in no acute distress. Head/Face: Normocephalic, atraumatic. Neck: Trachea midline, no cervical lymphadenopathy. Supple, full range of motion without nuchal rigidity, or vertebral point tenderness. No Meningismus. Chest/axilla: Normal chest wall appearance and motion. Nontender with no deformity. Cardiovascular: Regular rate and rhythm with a normal S1 and S2. No gallops, murmurs, or rubs. Normal PMI, no JVD. No pulse deficits. Respiratory: Lungs have equal breath sounds bilaterally, clear to auscultation and percussion. No rales, rhonchi or wheezes noted. No increased work of breathing, no retractions or nasal flaring. Skin: Warm, dry with normal turgor. Normal color with no rashes, no lesions, and no evidence of cellulitis. Vital Signs: 16:57 BP 154 / 71; Pulse 84; Resp 18; Temp 97.8; Pulse Ox 97% on R/A; rs5 MDM: 16:48 Patient medically screened. ms3 16:52 Differential diagnosis: abnormal EKG, acute myocardial infarction, coronary artery ms3 disease. 18:29 The patient was given aspirin in the Emergency Department. Data reviewed: vital signs, ms3 nurses notes, lab test result(s), EKG, radiologic studies, and as a result, I will admit patient. Consideration of Admission/Observation Patient was admitted/placed on observation. Management of patient was discussed with the following: Hospitalist: Dr Ordaz. I considered the following discharge prescriptions or medication management in the emergency department Medications were administered in the Emergency Department. See MAR. Care significantly affected by the following chronic conditions: Hypertension. Counseling: I had a detailed discussion with the patient and/or guardian regarding the historical points, exam findings, and any diagnostic results supporting the discharge/admit diagnosis, lab results, radiology results, the need for outpatient follow up, to return to the emergency department if symptoms worsen or persist or if there are any questions or concerns that arise at home. ED course: Discussed labs, EKG with patient. Discussed necessity of observation with patient and she understands/ agrees with plan.. 02/26 16:49 Order name: Basic Metabolic Panel; Complete Time: 18:08 ms3 02/26 16:49 Order name: CBC with Diff; Complete Time: 18:08 ms3 02/26 16:49 Order name: LFT's; Complete Time: 18:08 ms3 02/26 16:49 Order name: Magnesium; Complete Time: 18:08 ms3 02/26 16:49 Order name: NT PRO-BNP; Complete Time: 18:08 ms3 02/26 16:49 Order name: Troponin HS; Complete Time: 18:08 ms3 02/26 18:36 Order name: Osmolality, Serum ms3 02/26 18:36 Order name: Urine Osmolality ms3 02/26 18:36 Order name: Urine Sodium Random ms3 02/26 19:03 Order name: Osmolality, Serum EDMS 02/26 19:03 Order name: Osmolality, Urine EDMS 02/26 19:03 Order name: UR POTASSIUM EDMS 02/26 19:03 Order name: Thyroid Stimulating Hormone EDMS 02/26 19:03 Order name: UR SODIUM EDMS 02/26 19:03 Order name: CBC with Automated Diff EDMS 02/26 19:03 Order name: CBC with Automated Diff EDMS 02/26 19:03 Order name: Comprehensive Metabolic Panel EDMS 02/26 19:03 Order name: Comprehensive Metabolic Panel EDMS 02/26 19:03 Order name: Lipid Profile EDMS 02/26 19:03 Order name: Lipid Profile EDMS 02/26 19:03 Order name: Troponin High Sensitivity EDMS 02/26 19:03 Order name: Troponin High Sensitivity EDMS 02/27 06:29 Order name: CBC Smear Scan EDMS 02/27 09:32 Order name: UR POTASSIUM EDMS 02/27 13:48 Order name: Basic Metabolic Panel EDMS 02/26 16:49 Order name: XRAY Chest (1 view); Complete Time: 18:36 ms3 02/26 16:49 Order name: EKG; Complete Time: 16:49 ms3 02/26 19:03 Order name: CONS Physician Consult EDMS 02/26 16:49 Order name: Cardiac monitoring; Complete Time: 17:43 ms3 02/26 16:49 Order name: EKG - Nurse/Tech; Complete Time: 17:44 ms3 02/26 16:49 Order name: IV Saline Lock; Complete Time: 17:44 ms3 02/26 16:49 Order name: Labs collected and sent; Complete Time: 17:44 ms3 02/26 16:49 Order name: O2 Per Protocol; Complete Time: 17:44 ms3 02/26 16:49 Order name: O2 Sat Monitoring; Complete Time: 17:44 ms3 Administered Medications: 16:55 Drug: Aspirin PO Chewable Tablet 324 mg PO once; 81 mg tablets x 4 Route: PO; rs5 18:50 Drug: Famotidine IVP 20 mg IVP once; dilute with 10 mL 0.9% NaCl; give over 2 minutes rs5 Route: IVP; Site: left antecubital; 18:50 Drug: diphenhydrAMINE IVP 50 mg IVP once Route: IVP; Site: left antecubital; rs5 Disposition Summary: 02/27/24 18:34 Hospitalization Ordered Notes: Hospitalization Status: Observation ms3 Provider: Rod Ordaz ms3 Condition: Stable ms3 Problem: new ms3 Symptoms: are unchanged ms3 Bed/Room Type: Standard ms3 Location: [facility] ER HOLD(02/27/24 20:05) 3 Room Assignment: ERHOLD-(02/27/24 20:05) 3 Diagnosis - Hypo-osmolality and hyponatremia ms3 - Chest pain, unspecified ms3 Forms: - Medication Reconciliation Form ms3 - SBAR form ms3 - Leadership Thank You Letter ms3 Signatures: Dispatcher [employer] EDMS Nancy Benites RN RN lg3 Florian Monroe RN RN ll1 Greg Serrano DO DO ms3 Elaine Gracia RN RN db Giuseppe Weaver RN RN rs5 Corrections: (The following items were deleted from the chart) 16:49 16:49 BASIC METABOLIC PANEL+C.LAB.BRZ ordered. EDMS EDMS 16:49 16:49 CBC+H.LAB.BRZ ordered. EDMS EDMS 16:49 16:49 HEPATIC FUNCTION+C.LAB.BRZ ordered. EDMS EDMS 16:49 16:49 MAGNESIUM+C.LAB.BRZ ordered. EDMS EDMS 16:49 16:49 PROBNP+C.LAB.BRZ ordered. EDMS EDMS 16:49 16:49 Troponin High Sensitivity+C.LAB.BRZ ordered. EDMS EDMS 20:05 18:34 Telemetry/MedSurg (observation) ms3 lg3 20:05 18:34 ms3 lg3
[2024-02-27] MEDS ORDERED: DIPHENHYDRAMINE 50 MG/ML VIAL ONE ×2 (18:46→19:32)
[2024-02-27] MEDS ORDERED: FAMOTIDINE 20 MG/2 ML VIAL IV ONE ×2 (18:47→19:32)
[2024-02-27] MEDS: DIPHENHYDRAMINE 50 MG/ML VIAL IV ONE (18:54)
[2024-02-27] MEDS: FAMOTIDINE 20 MG/2 ML VIAL IV SCH (18:54)
[2024-02-27] MEDS ORDERED: HYDRALAZINE HCL 20 MG/ML VIAL IV PRN (18:56)
[2024-02-27] MEDS ORDERED: MELATONIN 5 MG TABLET PO PRN (18:56)
[2024-02-27] MEDS ORDERED: ONDANSETRON 4 MG/2 ML VIAL IV PRN (18:56)
[2024-02-27] MEDS ORDERED: MORPHINE 2 MG/ML SYR IV PRN (18:56)
[2024-02-27] MEDS ORDERED: ALBUTEROL 2.5 MG/3 ML NEB SOL NEB PRN (18:59)
--- NOTE | 2024-02-27 19:08 | P.HP ---
Certification for Inpatient Patient admitted to: Observation With expected LOS: <2 Midnights Patient will require the following post-hospital care: None Practitioner: I am a practitioner with admitting privileges, knowledge of patient current condition, hospital course, and medical plan of care. Services: Services provided to patient in accordance with Admission requirements found in Title 42 Section 412.3 of the Code of Federal Regulations Patient History Date of Service: 02/27/24 Reason for admission: Atypical chest pain History of Present Illness: 64-year-old female with past medical history of hypertension, obesity, anxiety disorder, previous hospitalization for shortness of breath and body swelling 3 years ago with echo showing normal EF of 60% but mild TR, discharged with Lasix and spironolactone after cardiology evaluation at the time; presented now after presenting coming from a [facility] because of new onset chest pain. Wilner escobedo states that chest pain is intermittent since the last 6 months it occurred again today while at [facility]. The pain is more in the lower substernal to epigastric area. She felt the pain was more of like pressure-like nonradiating rated at about 6 out of 10. She was also complaining of some mild headache as well as some mild lower extremity swelling. She denies any shortness of breath. She was sent to the emergency room. She admits to decreased p.o. intake in the last couple of days. She states she was previously on buspirone and hydroxyzine for anxiety but she has stopped taking both medications. Of note she was previously on Lasix and spironolactone when she was discharged. 2 years ago when she states she is not taking any diuretics now. On arrival in the ED, vital signs were stable, EKG shows normal sinus rhythm with a rate of 86 bpm, initial set of troponin was negative. Chest x-ray shows clear lungs with no acute infiltrate or pulmonary edema. proBNP was marginal at 187, serum sodium was low at 125, potassium of 3.4. Patient was given aspirin 81 mg x 4 doses. At the time of interview she has been complaining of left eye itching as well as swelling. She states symptoms started within 30 minutes of being given the aspirin. At the time of the interview left. periorbital edema was actually noted to be worsening. Interview was stopped and stat IV Benadryl and Pepcid was given Allergies acetaminophen [From Excedrin Back & Body] Allergy (Unknown, Verified 05/08/18 11:30) UNKNOWN aspirin [From Excedrin Back & Body] Allergy (Unknown, Verified 01/28/18 11:30) UNKNOWN calcium carbonate [From Excedrin Back & Body] Allergy (Unknown, Verified 01/28/18 11:30) UNKNOWN ibuprofen Allergy (Unknown, Verified 01/28/18 11:30) UNKNOWN diphenhydramine citrate [From Excedrin PM] Allergy (Unverified 01/28/18 11:30) Unknown hydralazine Allergy (Unverified 01/28/18 11:30) Unknown Excedrin Allergy (Severe, Uncoded 01/28/18 11:30) Hives/Rash Home Medications: Amlodipine [Norvasc*] 10 mg PO DAILY 11/19/21 Buspirone HCl [Buspar] 10 mg PO BID 11/19/21 Ergocalciferol (Vitamin D2) [Vitamin D2] 1 cap PO EVERY 7TH DAY 11/19/21 Hydralazine HCl 50 mg PO BID 11/19/21 Loratadine [Claritin*] 10 mg PO DAILY 11/19/21 Metoprolol Tartrate [Lopressor*] 50 mg PO BID 11/19/21 Mirtazapine 11/19/21 Pantoprazole [Protonix Tab*] 40 mg PO DAILY 11/19/21 hydrOXYzine HCL [Atarax] 50 mg PO DAILY 11/19/21 Albuterol Inhaler [Ventolin Inhaler] 2 puff IH Q6H PRN #1 hfa.aer.ad 11/20/21 Cefpodoxime Proxetil 100 mg PO BID #10 tablet 11/20/21 Furosemide [Lasix] 20 mg PO DAILY #30 tab 11/20/21 Spironolactone [Aldactone*] 25 mg PO DAILY #30 tab 11/20/21 - Past Medical/Surgical History Diabetic: No -: HTN -: Anxiety -: Depression -: TB 10 years ago -: Psychosocial/ Personal History: patient lives at home with her son - Family History Mother -: Hypertension Notes: Anxiety - Social History Smoking Status: Never smoker Smoking therapy provided: No Patient receptive to therapy: No Alcohol use: No CD- Drugs: No Caffeine use: Yes Place of Residence: Home Review of Systems General: Weakness Eyes: Eyelid Inflammation Cardiovascular: Chest Pain Musculoskeletal: Pedal edema Physical Examination - Physical Exam General: Alert, In no apparent distress, Oriented x3 HEENT: Atraumatic, Normocephalic, PERRLA, Other (Left periorbital edema) Neck: Supple, 2+ carotid pulse no bruit, JVD not distended Respiratory: Clear to auscultation bilaterally, Normal air movement Cardiovascular: No edema, Normal pulses, Regular rate/rhythm, Normal S1 S2, Other (Mild lower substernal area tenderness, ) Gastrointestinal: Normal bowel sounds, Soft and benign, Non-distended Musculoskeletal: No clubbing, No swelling Neurological: Normal speech, Normal strength at 5/5 x4 extr, Normal tone, Sensation intact, Cranial nerves 3-12 intact - Studies Laboratory Data (last 24 hrs) 02/27/24 02/27/24 17:15 17:15 WBC 9.60 Hgb 14.4 Hct 41.5 Plt Count 267 Sodium 125 L Potassium 3.4 L BUN 10 Creatinine 0.97 Glucose 115 H Magnesium 1.8 Total Bilirubin 0.6 AST 29 ALT 32 Alkaline Phosphatase 107 Assessment and Plan - Plan Impression Atypical chest painMay be due to anxiety versus costochondritis Hypertension Aspirin induced anaphylaxis with left eye swelling Hyponatremia/hypokalemiamay be due to decreased p.o. intake Anxiety disorder Obesity Plan Will admit to telemetry under observation Start Benadryl and Pepcid IV given for anaphylaxis Continue Pepcid twice daily *Serial sets of cardiac enzymes Low-dose Lovenox Nitroglycerin as needed recurrent chest pain Resume blood pressure home medications Giving low sodium and potassium, start NS with KCl, obtain uric acid/urine sodium/osmolality/serum osmolality/potassium Nephrology consult in a.m. Possible uncontrolled anxiety disorder, restart buspirone Full code Total time spent valuation of patient greater than 80-minute - Advance Directives Does patient have a Living Will: No Does patient have a Durable POA for Healthcare: No Physician Review: Patient Assessed, Agree with Above Assessment and Plan Time Spent Managing Pts Care (In Minutes): 75
[2024-02-27] MEDS: NS KCL 20MEQ 20 MEQ/1,000 ML BAG IV SCH (19:30)
[2024-02-27] MEDS: METHYLPREDNISOLONE 125 MG INJ IV ONE (19:30)
[2024-02-27] MEDS: NITROGLYCERIN 0.4 MG/TAB SL ONE (19:32)
[2024-02-27] MEDS ORDERED: HYDRALAZINE HCL 25 MG TABLET ONE (19:59)
[2024-02-27] MEDS ORDERED: NITROGLYCERIN 0.4 MG/TAB SL ONE (19:59)
[2024-02-27] MEDS ORDERED: METHYLPREDNISOLONE 125 MG INJ ONE (19:59)
[2024-02-27] MEDS ORDERED: LORAZEPAM 0.5 MG TABLET ONE (20:00)
[2024-02-27] MEDS: LORAZEPAM 0.5 MG TABLET PO PRN (20:00)
[2024-02-27] MEDS ORDERED: NS KCL 20MEQ 1,000 ML IV ONE (20:00)
[2024-02-27] MEDS: METOPROLOL TAR 50 MG TAB PO SCH (21:00)
[2024-02-27] MEDS: BUSPIRONE HCL 5 MG TABLET PO SCH (21:00)
[2024-02-27] MEDS: HYDRALAZINE HCL 25 MG TABLET PO SCH (21:00)
[2024-02-28] MEDS: DIPHENHYDRAMINE 50 MG/ML VIAL IV ONE (00:06)
[2024-02-28] MEDS: FAMOTIDINE 20 MG/2 ML VIAL IV SCH (00:07)
[2024-02-28] MEDS ORDERED: METOPROLOL TAR 50 MG TAB ONE ×2 (00:14→09:23)
[2024-02-28] MEDS ORDERED: DIPHENHYDRAMINE 50 MG/ML VIAL ONE (00:15)
[2024-02-28] MEDS ORDERED: FAMOTIDINE 20 MG/2 ML VIAL IV ONE ×2 (00:15→09:24)
[2024-02-28 00:54] VITALS: BMI 36.8
[2024-02-28 05:35] LABS: Absolute Lymphocytes (CBC) 0.5 K/uL (0.7-4.9); Absolute Neutrophil 6.1 K/uL (1.8-8.0); Basophils % 0.4 % (0-1.3); Hematocrit 42.4 % (36.0-45.0); Lymphocytes % 7.6 % (15.3-44.8); MCH 35.4 pg (27.0-35.0); MCHC 35.3 g/dL (32.0-36.0); MCV 100.3 fL (80-100); MPV 7.1 fL (7.6-11.3); Monocytes % 0.5 % (3.3-12.3); Neutrophils % 91.5 % (41.7-73.7); Platelets 258 thou/uL (152-406); RBC Red Blood Cell Count 4.23 M/uL (3.86-4.86); Red Cell Distribution Width 12.4 % (12.1-15.2)
[2024-02-28 05:55] LABS: Albumin 3.4 g/dL (3.4-5.0); Albumin/Globulin Ratio 0.8 (1.1-1.8); Anion Gap 10.5 mEq/L (5.0-15.0); Bilirubin Total 0.8 mg/dL (0.2-1.0); Globulin 4.4 g/dL (2.3-3.5); Potassium 3.5 mEq/L (3.5-5.1); Protein, Total 7.8 g/dL (6.4-8.2); Troponin High Sensitivity 3.5 pg/mL (<58.9)
[2024-02-28 06:27] LABS: White Blood Cell Scan OK (OK)
[2024-02-28 06:28] LABS: Blood Morphology Comment NOT SEEN (NOT SEEN); Platelet Estimate ADEQ
[2024-02-28] MEDS: FUROSEMIDE 20 MG TABLET PO SCH (09:00)
[2024-02-28] MEDS: ENOXAPARIN 40 MG/0.4 ML SQ SCH (09:00)
[2024-02-28] MEDS: CLOPIDOGREL 75 MG TABLET PO SCH (09:00)
[2024-02-28] MEDS: AMLODIPINE 10 MG TAB PO SCH (09:00)
[2024-02-28] MEDS ORDERED: HYDRALAZINE HCL 25 MG TABLET ONE (09:24)
[2024-02-28] MEDS ORDERED: FUROSEMIDE 20 MG TABLET ONE (09:24)
[2024-02-28] MEDS ORDERED: ENOXAPARIN 40 MG/0.4 ML SQ ONE (09:24)
[2024-02-28] MEDS ORDERED: AMLODIPINE 10 MG TAB ONE (09:24)
[2024-02-28] MEDS ORDERED: CLOPIDOGREL 75 MG TABLET ONE (09:58)
[2024-02-28] MEDS ORDERED: THIAMINE HCL 100 MG TABLET ONE (11:12)
[2024-02-28] MEDS ORDERED: D5W 1,000 ML IV ONE (11:12)
[2024-02-28] MEDS: D5W 1,000 ML IV SCH (11:40)
[2024-02-28] MEDS ORDERED: THIAMINE 200 MG/2 ML INJ ONE (11:41)
[2024-02-28] MEDS: THIAMINE 200 MG/2 ML INJ IVP ONE (11:42)
[2024-02-28 13:48] LABS: Anion Gap 12.3 mEq/L (5.0-15.0); Potassium 3.3 mEq/L (3.5-5.1)
--- NOTE | 2024-02-28 14:27 | P.PN ---
Subjective Date of Service: 02/28/24 Chief Complaint: Atypical chest pain Pt is resting comfortably in bed. She denies any chest pain. The allergic reaction to aspirin has resolved. Waiting for Echo. Pt ate breakfast this am. No other complaints. Review of Systems General: Unremarkable Eyes: Unremarkable ENT: Unremarkable Respiratory: Unremarkable Cardiovascular: Unremarkable Gastrointestinal: Unremarkable Genitourinary: Unremarkable Musculoskeletal: Unremarkable Integumentary: Unremarkable Neurological: Unremarkable Lymphatics: Unremarkable Physical Examination - Vital Signs Temperature: 98.0 F Blood Pressure: 151/83 Pulse: 62 Respirations: 16 Pulse Ox (%): 99 - Physical Exam General: Alert, In no apparent distress, Oriented x3 HEENT: Atraumatic, Normocephalic, PERRLA Neck: Supple, 2+ carotid pulse no bruit, JVD not distended Respiratory: Clear to auscultation bilaterally, Normal air movement Cardiovascular: No edema, Normal pulses, Regular rate/rhythm, Normal S1 S2 Capillary refill: <2 Seconds Gastrointestinal: Normal bowel sounds, Soft and benign, Non-distended Musculoskeletal: No clubbing, No swelling Integumentary: No rashes, No breakdown Neurological: Normal speech, Normal strength at 5/5 x4 extr, Normal tone, Sensation intact Lymphatics: No axilla or inguinal lymphadenopathy - Studies Laboratory Data (last 24 hrs) 02/27/24 02/27/24 17:15 17:15 WBC 9.60 Hgb 14.4 Hct 41.5 Plt Count 267 Sodium 125 L Potassium 3.4 L BUN 10 Creatinine 0.97 Glucose 115 H Magnesium 1.8 Total Bilirubin 0.6 AST 29 ALT 32 Alkaline Phosphatase 107 Assessment And Plan - Plan Atypical chest pain: Likely due to anxiety versus costochondritis. Will r/o ACS. Troponin trend is 3.5 <- 6.8. Will continue prn morphin, nitroglycerina nd oxygen. No aspirin due to allergic reaction. Will f/u Echo. Hypertension: continue amlodipine. Aspirin induced anaphylaxis with left eye swelling: Will avoid aspirin. ontinue Benadryl and Pepcid IV given for anaphylaxis Hyponatremia/hypokalemia: Will replete adn monitor electrolytes. Anxiety disorder: prn ativan Obesity: Pt was advised to lose weight. DVT ppx: Lovenox Code: Full code Physician Review: Patient Assessed, Agree with Above Assessment and Plan
--- NOTE | 2024-02-28 16:10 | P.DS ---
Admission Date: 02/27/24 Discharge Date: 02/28/24 Disposition: ROUTINE DISCHARGE Discharge Condition: GOOD Reason for Admission: Atypical chest pain Brief History of Present Illness: 64-year-old female with past medical history of hypertension, obesity, anxiety disorder, previous hospitalization for shortness of breath and body swelling 3 years ago with echo showing normal EF of 60% but mild TR, discharged with Lasix and spironolactone after cardiology evaluation at the time; presented now after presenting coming from a [facility] because of new onset chest pain. Patient states that chest pain is intermittent since the last 6 months it occurred again today while at [facility]. The pain is more in the lower substernal to epigastric area. She felt the pain was more of like pressure-like nonradiating rated at about 6 out of 10. She was also complaining of some mild headache as well as some mild lower extremity swelling. She denies any shortness of breath. She was sent to the emergency room. She admits to decreased p.o. intake in the last couple of days. She states she was previously on buspirone and hydroxyzine for anxiety but she has stopped taking both medications. Of note she was previously on Lasix and spironolactone when she was discharged. 2 years ago when she states she is not taking any diuretics now. On arrival in the ED, vital signs were stable, EKG shows normal sinus rhythm with a rate of 86 bpm, initial set of troponin was negative. Chest x-ray shows clear lungs with no acute infiltrate or pulmonary edema. proBNP was marginal at 187, serum sodium was low at 125, potassium of 3.4. Patient was given aspirin 81 mg x 4 doses. At the time of interview she has been complaining of left eye itching as well as swelling. She states symptoms started within 30 minutes of being given the aspirin. At the time of the interview left. periorbital edema was actually noted to be worsening. Interview was stopped and stat IV Benadryl and Pepcid was given Hospital Course: Pt is a 64yo female with past medical history of hypertension, obesity, anxiety disorder, previous hospitalization for shortness of breath and body swelling 3 years ago with echo showing normal EF of 60% but mild TR and she was discharged with Lasix and spironolactone after cardiology evaluated her. Pt came to the ER from [facility] with complaints of chest pain. The chest pain was substernal, pressure-like, nonradiating and intermittent in nature with severity of 6 out of 10. On admission, lab studies showed troponin (6.8 -> 3.8) and elevated total cholestrol. We admitted pt to r/o ACS. Echo was unremarkable. We advised pt to follow up with Cardiology for NM stress test. Of note, pt had allergic reaction (left eye swelling) to aspirin in the ER. It resolved after she received benadryl and pepcid. Pt was advised to lose weight. We continued home meds for other chronic medical problems. She was in NAD prior to discharge. Vital Signs/Physical Exam: Temp Pulse Resp BP Pulse Ox 98.0 F 62 16 151/83 H 99 02/28/24 14:27 02/28/24 14:27 02/28/24 14:27 02/28/24 14:27 02/28/24 14:27 Laboratory Data at Discharge: WBC 6.70 thou/uL (4.3-10.9) 02/28/24 05:08 Hgb 15.0 g/dL (12.0-15.0) 02/28/24 05:08 Hct 42.4 % (36.0-45.0) 02/28/24 05:08 Plt Count 258 thou/uL (152-406) 02/28/24 05:08 Sodium 130 mEq/L (136-145) L 02/28/24 13:23 Potassium 3.3 mEq/L (3.5-5.1) L 02/28/24 13:23 BUN 9 mg/dL (7-18) 02/28/24 13:23 Creatinine 0.99 mg/dL (0.55-1.02) 02/28/24 13:23 Glucose 182 mg/dL (74-106) H 02/28/24 13:23 Magnesium 1.8 mg/dL (1.6-2.4) 02/27/24 17:15 Total Bilirubin 0.8 mg/dL (0.2-1.0) 02/28/24 05:08 AST 22 U/L (15-37) 02/28/24 05:08 ALT 28 U/L (13-56) 02/28/24 05:08 Alkaline Phosphatase 100 U/L (45-117) 02/28/24 05:08 Triglycerides 70 mg/dL (<150) 02/28/24 05:08 Cholesterol 233 mg/dL (<200) H 02/28/24 05:08 HDL Cholesterol 74 mg/dL (40-60) H 02/28/24 05:08 Cholesterol/HDL Ratio 3.15 02/28/24 05:08 Home Medications: Amlodipine [Norvasc*] 10 mg PO DAILY 11/19/21 Buspirone HCl [Buspar] 10 mg PO BID 11/19/21 Ergocalciferol (Vitamin D2) [Vitamin D2] 1 cap PO EVERY 7TH DAY 11/19/21 Hydralazine HCl 50 mg PO BID 11/19/21 Loratadine [Claritin*] 10 mg PO DAILY 11/19/21 Metoprolol Tartrate [Lopressor*] 50 mg PO BID 11/19/21 Mirtazapine 11/19/21 Pantoprazole [Protonix Tab*] 40 mg PO DAILY 11/19/21 hydrOXYzine HCL [Atarax] 50 mg PO DAILY 11/19/21 Albuterol Inhaler [Ventolin Inhaler*] 2 puff IH Q6H PRN #1 hfa.aer.ad 11/20/21 Cefpodoxime Proxetil 100 mg PO BID #10 tablet 11/20/21 Furosemide [Lasix*] 20 mg PO DAILY #30 tab 11/20/21 Spironolactone [Aldactone*] 25 mg PO DAILY #30 tab 11/20/21 Atorvastatin Calcium [Lipitor] 80 mg PO BEDTIME 60 Days #60 tab 02/28/24 New Medications: Atorvastatin Calcium [Lipitor] 80 mg PO BEDTIME 60 Days #60 tab Physician Discharge Instructions: Continue ad ginna activity. Take home meds as prescribed. Follow up with PCP and cardiology within 1 - 2 weeks Diet: AHA Activity: Ad ginna Followup: [facility] [Primary Care Provider] - Marcus Malagon MD [ACTIVE - CAN ADMIT] -
[2024-02-28] MEDS ORDERED: MORPHINE 4 MG/ML SYR IV PRN (17:32)
[2024-02-28 18:27] VITALS: BP 154/71; TEMP 97.8; O2SAT 97
[2024-02-28] MEDS ORDERED: ATORVASTATIN 80 MG TAB PO SCH (21:00)
--- NOTE | 2024-02-29 02:44 | CON ---
Date of Consultation: 02/28/2024 Chief Complaint: Hyponatremia hypoosmolar. History Of Present Illness: The patient presented to the hospital because of chest pain. She was ev aluated by primary team for typical chest pain. The patient is a -[id number]-wna woman with past medical history of hypertension, obesity, anxiety disorder. Previous hospitalization for shortness of breath, body swelling, and hyponatremia. The patient previously was evaluated for hyponatremia wh en she had diarrhea. 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 Nephrology consultation is requested during this admission for hyponatremia. The patient was started on normal saline and sodium level improved from 125 to 131. Normal saline is stopped, an d the patient is started on p.o. fluid intake. The patient was found to have hypokalemia. Potassium was 3.4 and she received supplementation. The patient came to emergency room because of pressure-like nonradiating chest pain, which was rated abou t 6/10. She was complaining of some mild headache, some mild lower extremity swelling. She denied s hortness of breath. On arrival to emergency room, EKG showed normal sinus rhythm with a rate of 86 b pm. Initial set of troponin was negative. Chest x-ray showed clear lungs without acute infiltrate a nd was negative for pulmonary edema. ProBNP was 187. Serum sodium 125, potassium 3.4. The patient was medicated with aspirin, and she stated that she developed some left eye itching after aspirin was given. Primary team is evaluating the patient for periorbital edema. The patient was medicated wit h Benadryl and Pepcid. Review of Systems: Constitutional: The patient denies fever, chills. Eyes: She denies vision changes. Lungs: Denies cough, hemoptysis. Heart: She has a typical chest pain as described above. Abdomen: Denies nausea, vomiting. : Denies dysuria, hematuria. Past Medical History: Hypertension, anxiety, depression, TB 10 years ago, , GERD , hypertensive heart and kidney disease, vitamin D deficiency. Family History: Mother, hypertension and history of anxiety. Physical Examination: General: The patient is awake, alert, follows commands. Eyes: Anicteric sclerae. EOMI. Ears, Nose, Mouth, and Throat: Oral mucosa moist. No pallor. Neck: Supple. No bruits. Lungs: No rhonchi. No wheezing. Heart: S1, S2. Abdomen: Soft, obese. Extremities: Minimal edema in both ankles. No clubbing. No cyanosis. Laboratory Work: Sodium 125, potassium 3.4, BUN 10, creatinine 0.97, glucose 150. Magnesium 1.8. Impression And Plan: Hyponatremia hypoosmolar. The patient has history of syndrome of inappropriate antidiuretic hormone secretion. She presented with a typical chest pain. Workup was ordered to zion calvo for possible cause of hyponatremia. Lab work and urine test corresponded with syndrome of inap propriate antidiuretic hormone secretion. Plan is to check uric acid and evaluate for possible adren al insufficiency and check TSH. Renal ultrasound was ordered to rule out obstructive uropathy. The patient will be admitted to telemetry by Primary team. The patient is to have several workup for typ ical chest pain. Hypertension, avoid HCTZ. Hyponatremia and hypokalemia likely secondary to low merritt [place] intake and effect of diuretic. The patient was treated outpatient with Lasix and spironolactone. Questionable compliance with medication due to the fact that the patient has hypokalemia when home medications includes spironolactone. Anxiety disorder, the patient is taking buspirone, which may be contributory to hyponatremia. The patient needs to be consulted by psychiatrist regarding antianxie ty medication. Hyponatremia. The patient was started on normal saline and potassium replacement. Serum sodium impr talha from 125 to 131 within 12 hours and plan is to adjust IV fluids to facilitate gradual sodium cor rection. Recommend to monitor potassium, magnesium, and renal panel. Recommend to rule out adrenal insufficiency. I ordered a.m. cortisol level. EB/MODL Voice ID: [id number] Report ID: [id number]
--- NOTE | 2024-02-29 11:45 | EKG ---
Test Date: 2024-02-27 Test Time: 17:25:11 Tufting Machine Operator: BISHOP MEASUREMENT RESULTS: Intervals: Rate: 86 TN: 172 QRSD: 80 QT: 366 QTc: 437 Ceres: P: 53 TN: 172 QRS: 38 T: 44 INTERPRETIVE STATEMENTS: Normal sinus rhythm Normal ECG Compared to ECG 08/13/2022 19:52:02 No significant changes Electronically Signed On 02-29-24 11:43:52 CDT by Marcus Malagon
--- NOTE | 2024-03-02 07:02 | ECHO ---
HEIGHT: 5 ft 1 in WEIGHT: 195 lb 0 oz DATE OF STUDY: 02/28/[address]: Jethro Beckman MD 2-DIMENSIONAL: YES M.MODE: YES DOPPLER: YES COLOR FLOW: YES TDS: YES PORTABLE: YES DEFINITY: BUBBLE STUDY: DIAGNOSIS: RULE OUT CONGESTIVE HEART FAILURE CARDIAC HISTORY: CATHERIZATION: NO SURGERY: NO PROSTHETIC VALVE: NO PACEMAKER: NO MEASUREMENTS (cm) DIASTOLIC (NORMALS) SYSTOLIC (NORMALS) IVSd 1.1 (0.6-1.2) LA Diam 3.0 (1.9-4.0) LVEF 60-65% LVIDd 4.2 (3.5-5.7) LVIDs 2.3 (2.0-3.5) %FS 45% LVPWd 1.1 (0.6-1.2) Ao Diam 2.9 (2.0-3.7) 2 DIMENSIONAL ASSESSMENT: RIGHT ATRIUM: NORMAL LEFT ATRIUM: NORMAL RIGHT VENTRICLE: NORMAL LEFT VENTRICLE: NORMAL TRICUSPID VALVE: TRACE TRICUSPID REGURGITATION MITRAL VALVE: NORMAL PULMONIC VALVE: NORMAL AORTIC VALVE: NORMAL PERICARDIAL EFFUSION: PERICARDIAL FAT PAD AORTIC ROOT: NORMAL LEFT VENTRICULAR WALL MOTION: NORMAL DOPPLER/COLOR FLOW: GRADE I DIASTOLIC DYSFUNCTION COMMENTS: 1. NORMAL LEFT VENTRICULAR SYSTOLIC FUNCTION, EJECTION FRACTION 60-65%, NORMAL WALL MOTION 2. GRADE I DIASTOLIC DYSFUNCTION TECHNOLOGIST: GURWINDER QUACH
== END 2024-02-28 18:30 | disposition home or self-care (01) ==
LOC: ER 16:44 → ERHOLD 18:59
PROVIDERS: ADMIT Internal Medicine; ATTEND Hospitalist
DX: T88.6XXA Anaphylactic reaction due to adverse effect of correct drug or medicament properly administered, initial encounter (principal); T39.015A Adverse effect of aspirin, initial encounter; I10 Essential (primary) hypertension; E66.9 Obesity, unspecified; F41.9 Anxiety disorder, unspecified; E87.1 Hypo-osmolality and hyponatremia; E87.6 Hypokalemia; E55.9 Vitamin D deficiency, unspecified; Z68.36 Body mass index [BMI] 36.0-36.9, adult
CPT/HCPCS: 93005; 93306; 85025 ×2; 80048 ×2; 36415; 83735; 84132; 84300; 80061; 80076; 84443; 84484 ×2; 80053; 83880; 83930; 83935; 71045; 96375; 96374; 99284; J3411; J1200 ×2; J1650; J2919; J3480; G0378

== ENCOUNTER 2024-03-09 12:52 | Emergency (ER) | payer OTHER ==
[2024-03-09 13:29] LABS: Absolute Eosinophils 0.1 K/uL (0-0.5); Absolute Lymphocytes (CBC) 1.1 K/uL (0.7-4.9); Absolute Neutrophil 9.2 K/uL (1.8-8.0); Basophils % 0.4 % (0-1.3); Eosinophils % 0.8 % (0-4.4); Hematocrit 40.1 % (36.0-45.0); Hemoglobin 13.6 g/dL (12.0-15.0); Lymphocytes % 9.5 % (15.3-44.8); MCH 34.3 pg (27.0-35.0); MCV 100.7 fL (80-100); MPV 7.1 fL (7.6-11.3); Monocytes % 8.7 % (3.3-12.3); Neutrophils % 80.6 % (41.7-73.7); Platelets 358 thou/uL (152-406); RBC Red Blood Cell Count 3.98 M/uL (3.86-4.86); Red Cell Distribution Width 12.1 % (12.1-15.2)
[2024-03-09 13:45] LABS: Anion Gap 9.6 mEq/L (5.0-15.0); Potassium 3.6 mEq/L (3.5-5.1); Troponin High Sensitivity 6.1 pg/mL (<58.9)
--- NOTE | 2024-03-09 15:49 | RAD REPORT ---
EXAM DESCRIPTION: RADChest Single View03/09/2024 2:24 pm CLINICAL HISTORY: CHEST PAIN COMPARISON: Chest Single View dated 02/27/2024; Chest Single View dated 08/13/2022; Chest Single View dated 12/07/2021; Chest Single View dated 12/01/2021 TECHNIQUE: Portable AP view of the chest. FINDINGS: Mild central interstitial prominence. No focal consolidation. No pneumothorax or effusion . The cardiomediastinal contours are unremarkable. IMPRESSION: Mild central interstitial prominence which may reflect mild central congestion.
--- NOTE | 2024-03-09 16:19 | RAD REPORT ---
EXAM DESCRIPTION: CT - Chest For Pe Angio - 03/09/2024 2:21 pm CLINICAL HISTORY: CHEST PAIN COMPARISON: Chest For Pe Angio dated 11/19/2021; Chest For Pe Angio dated 05/10/2021 TECHNIQUE: Thin axial CT images of the chest were obtained following administration of 100 mL Isovue 370 IV contrast. Multiplanar reconstructions, and maximum intensity projection reconstructions were generated and reviewed. Exam utilizes a protocol for optimal evaluation of pulmonary arterial tree. All CT scans are performed using dose optimization technique as appropriate and may include automated exposure control or mA/KV adjustment according to patient size. FINDINGS: Pulmonary arteries are normal. No emboli or other suspicious finding. No acute or signific ant aorta findings. No mass or infiltrate in the lung parenchyma. No pleural thickening or pleural effusion. No pneumotho rax. No abnormal mediastinal or hilar masses or lymphadenopathy seen. No chest wall mass or abnormal axill iary lymphadenopathy. IMPRESSION: No evidence of acute central pulmonary emboli. Negative CT scan of the chest for other significant findings.
[2024-03-09] MEDS ORDERED: TRAMADOL HCL 50 MG TAB ONE (16:48)
[2024-03-09] MEDS ORDERED: CYCLOBENZAPRINE 10 MG TAB ONE (16:48)
--- NOTE | 2024-03-09 16:53 | ER ---
Nurse's Notes [facility] Name: Carmel Rodriguez Age: 63 yrs Sex: Female : 1960 Arrival Date: 03/09/2024 Time: 12:52 Bed 18 Private MD: Diagnosis: Chest pain, unspecified;Strain of muscle(s) and tendon(s) of the rotator cuff of right shoulder Presentation: 03/09 12:59 Chief complaint: Patient states: Still has CP and back pain from her last visit here. ll1 Coronavirus screen: Client denies travel out of the [place] in the last 14 days. At this time, the client does not indicate any symptoms associated with coronavirus-19. Ebola Screen: Patient denies travel to an Ebola-affected area in the 21 days before illness onset. Initial Sepsis Screen: Does the patient meet any 2 criteria? No. Patient's initial sepsis screen is negative. Does the patient have a suspected source of infection? No. Patient's initial sepsis screen is negative. Risk Assessment: Do you want to hurt yourself or someone else? Patient reports no desire to harm self or others. Onset of symptoms was March 01, 2024. 12:59 Method Of Arrival: Wheelchair ll1 12:59 Acuity: CHRISTINE 3 ll1 Historical: - Allergies: 12:54 ACETAMINOPHEN; ph 12:54 Aspirin; ph 12:54 CALCIUM CARBONATE; ph 12:54 EXCEDRIN; ph 12:54 Excedrin PM; ph 12:54 Ibuprofen; ph 12:54 NSAIDS; ph 12:54 Toradol; ph - PMHx: 12:54 Anxiety; Depression; Hypertension; ph - PSHx: 12:54 section; ph - Immunization history:: Adult Immunizations up to date. - Infectious Disease History:: Denies. - Social history:: Smoking status: Patient denies any tobacco usage or history of. - Family history:: not pertinent. - Hospitalizations: : The patient was recently seen at [facility]. Screenin:59 [facility] ED Fall Risk Assessment (Adult) History of falling in the last 3 months, mb9 including since admission No falls in past 3 months (0 pts) Confusion or Disorientation No (0 pts) Intoxicated or Sedated No (0 pts) Impaired Gait No (0 pts) Mobility Assist Device Used No (0 pt) Altered Elimination No (0 pt) Score/Fall Risk Level 0 - 2 = Low Risk Oriented to surroundings, Maintained a safe environment, Educated pt \T\ family on fall prevention, incl call for assistance when getting out of bed. Abuse screen: Denies threats or abuse. Nutritional screening: No deficits noted. Tuberculosis screening: No symptoms or risk factors identified. Assessment: 13:14 General: Appears in no apparent distress. Behavior is calm, cooperative. Pain: mb9 Complains of pain in back and right arm Pain does not radiate. Pain currently is 8 out of 10 on a pain scale. Quality of pain is described as throbbing, Pain began 2-3 days ago. Is continuous. Neuro: Rosa Agitation-Sedation Scale (RASS): 0 - Alert and Calm Level of Consciousness is awake, alert, obeys commands, Oriented to person, place, time, situation, Appropriate for age. Cardiovascular: Denies chest pain, Heart tones S1 S2 present Patient's skin is warm and dry. Respiratory: Airway is patent Respiratory effort is even, unlabored, Respiratory pattern is regular, symmetrical, Breath sounds are clear bilaterally. GI: Abdomen is round non-distended, Bowel sounds present X 4 quads. Abd is soft and non tender X 4 quads. Reports diarrhea. : No signs and/or symptoms were reported regarding the genitourinary system. EENT: No signs and/or symptoms were reported regarding the EENT system. Derm: Skin is pink, warm \T\ dry. Musculoskeletal: Range of motion: intact in all extremities. 14:45 Reassessment: No changes from previously documented assessment. Patient and/or family mb9 updated on plan of care and expected duration. Pain level reassessed. Patient is alert, oriented x 3, equal unlabored respirations, skin warm/dry/pink. 15:45 Reassessment: No changes from previously documented assessment. Patient and/or family mb9 updated on plan of care and expected duration. Pain level reassessed. 16:20 Reassessment: offered pt assistance to bathroom, pt denied. Pt states she does not want mb9 bedside commode or bed dinero and she will walk to restroom. Vital Signs: 12:59 Resp 18; Temp 97.5; Pain 10/10; ll1 13:14 BP 125 / 65; Pulse 73; Resp 16; Pulse Ox 100% on R/A; mb9 14:47 BP 118 / 50; Pulse 77; Resp 18; Pulse Ox 97% on R/A; mb9 16:54 BP 129 / 66; Pulse 74; Resp 18; Pulse Ox 100% on R/A; mb9 12:59 Pain Scale: Adult ll1 ED Course: 12:53 Patient arrived in ED. im 12:54 Melchor Sarmiento MD is Attending Physician. rn 12:54 Arm band placed on Patient placed in an exam room, on a stretcher. ph 12:58 Milly Doll, RN is Primary Nurse. mb9 12:59 Placed in gown. Bed in low position. Call light in reach. Side rails up X 1. Provided mb9 Education on: press call light if needing anything. Client placed on continuous cardiac and pulse oximetry monitoring. NIBP monitoring applied. front desk monitor on. Door closed. Noise minimized. Warm blanket given. Pillow given. 13:00 Triage completed. ll1 13:13 Initial lab(s) drawn, by me, sent to lab. EKG done, by ED staff, reviewed by Melchor Sarmiento MD. Inserted saline lock: 20 gauge in left antecubital area, using aseptic technique. 13:15 No provider procedures requiring assistance completed. mb9 14:23 CT Chest For PE Angio In Process Unspecified. EDMS 14:26 XRAY Chest (1 view) In Process Unspecified. EDMS 16:54 IV discontinued, intact, bleeding controlled, No redness/swelling at site. Pressure mb9 dressing applied. Administered Medications: 16:50 Drug: traMADol PO 50 mg PO once Route: PO; mb9 16:50 Drug: Cyclobenzaprine PO 10 mg PO once Route: PO; mb9 Medication: 12:59 VIS not applicable for this client. mb9 Outcome: 16:52 Discharge ordered by . rn 16:54 Discharged to home ambulatory, mb9 16:54 Condition: stable 16:54 Discharge instructions given to patient, Instructed on discharge instructions, follow up and referral plans. Demonstrated understanding of instructions, follow-up care, medications, Prescriptions given X 1, 17:08 Patient left the ED. mb9 Signatures: Dispatcher [employer] EDMS Melchor Sarmiento MD MD rn Hall, Patricia, RN RN Florian Monroe RN RN 1 Milly Doll RN RN mb9 Beronica Murguia Corrections: (The following items were deleted from the chart) 16:26 16:20 Reassessment: offered pt assistance to bathroom, pt denied. Pt states she does mb9 not want bedside commode or bed dinero. mb9
--- NOTE | 2024-03-09 16:54 | EDPHYS ---
Physician Documentation [facility] Name: Carmel Rodriguez Age: 63 yrs Sex: Female : 1960 Arrival Date: 03/09/2024 Time: 12:52 Bed 18 Private MD: ED Physician Melchor Sarmiento HPI: 03/09 14:37 This 63 yrs old Female presents to ER via Wheelchair with complaints of Chest rn Pain, Back Pain. 14:37 The patient or guardian reports chest pain that is located primarily in the right rn lateral posterior chest. Onset: at an unknown time. The pain radiates to the right shoulder. Associated signs and symptoms: Pertinent negatives: abdominal pain, cough, diaphoresis, shortness of breath, syncope, vomiting. The chest pain is described as aching. Duration: The patient or guardian reports multiple episodes, that are intermittent. Severity of pain: At its worst the pain was moderate in the emergency department the pain is unchanged. The patient has experienced similar episodes in the past. Patient reports months of right-sided chest pain, right posterior thorax, radiates to the right shoulder, worse with range of motion of arm and turning of the neck. Reports recent admission for chest pain and no acute abnormalities. Told to follow-up with cardiology if worsens. Denies fever or trauma. No hemoptysis. No history of DVT or PE.. Historical: - Allergies: 12:54 ACETAMINOPHEN; ph 12:54 Aspirin; ph 12:54 CALCIUM CARBONATE; ph 12:54 EXCEDRIN; ph 12:54 Excedrin PM; ph 12:54 Ibuprofen; ph 12:54 NSAIDS; ph 12:54 Toradol; ph - PMHx: 12:54 Anxiety; Depression; Hypertension; ph - PSHx: 12:54 section; ph - Immunization history:: Adult Immunizations up to date. - Infectious Disease History:: Denies. - Social history:: Smoking status: Patient denies any tobacco usage or history of. - Family history:: not pertinent. - Hospitalizations: : The patient was recently seen at [facility]. ROS: 14:37 Constitutional: Negative for fever, chills, and weight loss, Eyes: Negative for injury, rn pain, redness, and discharge, Neck: Negative for injury, pain, and swelling, Cardiovascular: Negative for palpitations, and edema Respiratory: Negative for shortness of breath, cough, wheezing Abdomen/GI: Negative for abdominal pain, nausea, vomiting, diarrhea, and constipation, Back: Negative for injury and pain, MS/Extremity: Negative for injury and deformity, Skin: Negative for injury, rash, and discoloration, Neuro: Negative for headache, weakness, numbness, tingling, and seizure, Exam: 14:37 Constitutional: This is a well developed, well nourished patient who is awake, alert, rn and in no acute distress. Cardiovascular: Regular rate and rhythm. No pulse deficits. Respiratory: Speaking full sentences, unlabored. No increased work of breathing, no retractions or nasal flaring. Abdomen/GI: Soft, non-tender MS/ Extremity: Pulses equal, no cyanosis. Neuro: Awake and alert, GCS 15 15:29 ECG was reviewed by the Attending Physician. rn Vital Signs: 12:59 Resp 18; Temp 97.5; Pain 10/10; ll1 13:14 BP 125 / 65; Pulse 73; Resp 16; Pulse Ox 100% on R/A; mb9 14:47 BP 118 / 50; Pulse 77; Resp 18; Pulse Ox 97% on R/A; mb9 16:54 BP 129 / 66; Pulse 74; Resp 18; Pulse Ox 100% on R/A; mb9 12:59 Pain Scale: Adult ll1 MDM: 12:54 Patient medically screened. rn 16:49 Differential diagnosis: acute myocardial infarction, acute pericarditis, anxiety, rn coronary artery disease chest wall pain, costochondritis, esophagitis, gastritis, gastroesophageal reflux disease (GERD), pericarditis, pleurisy, pneumonia, pneumothorax, pulmonary embolus. HEART Score: History: Slightly Suspicious (0), ECG: Non specific repolarization disturbance / LBTB / PM (1), Age: > 45 and < 65 years (1), Risk Factors: 1 or 2 risk factors (1), Troponin: < or = 1 x Normal Limit (0), Total Score = 3. Data reviewed: vital signs, nurses notes, lab test result(s), EKG, radiologic studies, CT scan, and as a result, I will discharge patient. Care significantly affected by the following chronic conditions: Hypertension. Counseling: I had a detailed discussion with the patient and/or guardian regarding the historical points, exam findings, and any diagnostic results supporting the discharge/admit diagnosis, lab results, radiology results, the need for outpatient follow up, to return to the emergency department if symptoms worsen or persist or if there are any questions or concerns that arise at home. Special discussion: Based on the patient's history, exam, and Dx evaluation, there is no indication for emergent intervention or inpatient Tx. It is understood by the patient/guardian that if the Sx's persist or worsen they need to return immediately for re-evaluation. I discussed with the patient/guardian in detail that at this point there is no indication for admission to the hospital. It is understood, however, that if the symptoms persist or worsen the patient needs to return immediately for re-evaluation. ED course: No acute findings and workup today, including CT PE protocol. Recent admission for chest pain and deemed to be noncardiac in nature. Patient now reports thinks she hurt herself by throwing heavy trash bags yesterday as pain started to coincide with the worsening of it. Troponin negative. No ischemia on EKG. Will discharge home with muscle relaxer and return precautions. I have personally reviewed all of the results, including but not limited to blood tests and imaging deemed necessary to safely discharge this patient at this time. All results given to and printed out for patient. I personally went over all the results with the patient and answered all questions. Patient will follow-up with PCP and or specialist as discussed. Return precautions given and understood.. 03/09 13:01 Order name: Basic Metabolic Panel; Complete Time: 14:03/09 13:01 Order name: CBC with Diff; Complete Time: 14:03/09 13:01 Order name: NT PRO-BNP; Complete Time: 14:03/09 13:01 Order name: Troponin HS; Complete Time: 14:03/09 13:01 Order name: XRAY Chest (1 view); Complete Time: 16:03/09 13:09 Order name: CT Chest For PE Angio; Complete Time: 16:03/09 13:01 Order name: Cardiac monitoring; Complete Time: 13:03/09 13:01 Order name: EKG - Nurse/Tech; Complete Time: 13:03/09 13:01 Order name: IV Saline Lock; Complete Time: 13:03/09 13:01 Order name: Labs collected and sent; Complete Time: 13:13 rn 03/09 13:01 Order name: O2 Per Protocol; Complete Time: 13: rn 03/09 13:01 Order name: O2 Sat Monitoring; Complete Time: 13: rn EC:29 Rate is 74 beats/min. Rhythm is regular. QRS [place] is Normal. AR interval is normal. QRS rn interval is normal. QT interval is normal. No Q waves. T waves are Normal. No ST changes noted. Clinical impression: NSR w/ Non-specific ST/T Changes. Interpreted by me. Reviewed by me. Administered Medications: 16:50 Drug: traMADol PO 50 mg PO once Route: PO; mb9 16:50 Drug: Cyclobenzaprine PO 10 mg PO once Route: PO; mb9 Disposition Summary: 03/09/24 16:52 Discharge Ordered Notes: Location: Home rn Problem: new rn Symptoms: have improved rn Condition: Stable rn Diagnosis - Chest pain, unspecified rn - Strain of muscle(s) and tendon(s) of the rotator cuff of right shoulder rn Followup: rn - With: Private Physician - When: As needed - Reason: Recheck today's complaints, Re-evaluation by your physician Discharge Instructions: - Discharge Summary Sheet rn - Nonspecific Chest Pain, Adult rn - Chest Wall Pain rn Forms: - Medication Reconciliation Form rn - Antibiotic turning machine operator - Prescription Opioid Use rn - Patient Portal Instructions rn - Leadership Thank You Letter rn Prescriptions: - Cyclobenzaprine 10 mg Oral tablet - take 1 tablet ORAL route every 8-12 hours As needed; 14 tablet; Refills: 0, rn Product Selection Permitted Signatures: Dispatcher [employer] EDMS Melchor Sarmiento MD MD rn Hall, Patricia RN RN Florian Ward, RN RN ll1 Milly Doll, RN RN mb9 Corrections: (The following items were deleted from the chart) 13:02 13:02 BASIC METABOLIC PANEL+C.LAB.BRZ ordered. EDMS EDMS 13:02 13:02 CBC+H.LAB.BRZ ordered. EDMS EDMS 13:02 13:02 PROBNP+C.LAB.BRZ ordered. EDMS EDMS 13:02 13:02 Troponin High Sensitivity+C.LAB.BRZ ordered. EDMS EDMS
[2024-03-09 17:27] VITALS: BP 129/66; TEMP 97.5; O2SAT 100
--- NOTE | 2024-03-10 14:16 | EKG ---
Test Date: 2024-03-09 Test Time: 13:10:32 Medical Manager: ROBERTO MEASUREMENT RESULTS: Intervals: Rate: 74 PA: 154 QRSD: 76 QT: 358 QTc: 397 Bryan: P: 2 PA: 154 QRS: 41 T: 42 INTERPRETIVE STATEMENTS: Normal sinus rhythm Nonspecific ST and T wave abnormality Abnormal ECG Compared to ECG 02/27/2024 17:25:11 ST (T wave) deviation now present Electronically Signed On 03-10-24 14:12:49 CDT by Lizandro Stewart
== END 2024-03-09 17:08 | disposition home or self-care (01) ==
LOC: ER 12:52
DX: R07.9 Chest pain, unspecified (principal); S46.011A Strain of muscle(s) and tendon(s) of the rotator cuff of right shoulder, initial encounter
CPT/HCPCS: 93005; 85025; 80048; 36415; 84484; 83880; 71275; 71045; Q9967; 99285

== ENCOUNTER 2024-05-12 15:45 | Emergency (ER) | payer OTHER ==
[2024-05-12 16:30] LABS: Absolute Monocytes 0.7 K/uL (0.1-1.3); Absolute Neutrophil 5.4 K/uL (1.8-8.0); Basophils % 0.5 % (0-1.3); Eosinophils % 0.5 % (0-4.4); Hematocrit 43.8 % (36.0-45.0); Hemoglobin 14.8 g/dL (12.0-15.0); Lymphocytes % 13.9 % (15.3-44.8); MCH 34.7 pg (27.0-35.0); MCHC 33.7 g/dL (32.0-36.0); MCV 102.8 fL (80-100); MPV 6.8 fL (7.6-11.3); Monocytes % 10.2 % (3.3-12.3); Neutrophils % 74.9 % (41.7-73.7); Platelets 250 thou/uL (152-406); RBC Red Blood Cell Count 4.26 M/uL (3.86-4.86); Red Cell Distribution Width 13.8 % (12.1-15.2)
[2024-05-12] MEDS ORDERED: DIPHENHYDRAMINE 50 MG/ML VIAL ONE (16:31)
[2024-05-12 16:47] LABS: Anion Gap 10.7 mEq/L (5.0-15.0); Potassium 3.7 mEq/L (3.5-5.1); Troponin High Sensitivity 7.9 pg/mL (<58.9)
--- NOTE | 2024-05-12 17:31 | RAD REPORT ---
EXAM DESCRIPTION: RADChest Single View05/12/2024 4:56 pm CLINICAL HISTORY: CHEST PAIN COMPARISON: Chest Single View dated 03/09/2024; Chest Single View dated 02/27/2024; Chest Single View d ated 08/13/2022; Chest Single View dated 12/07/2021 TECHNIQUE: Portable AP view of the chest. FINDINGS: The lungs are clear. No pneumothorax or effusion. The cardiomediastinal contours are unre markable. IMPRESSION: No acute cardiopulmonary process.
--- NOTE | 2024-05-12 18:09 | EDPHYS ---
Physician Documentation [facility] Name: Carmel Rodriguez Age: 63 yrs Sex: Female : 1960 Arrival Date: 05/12/2024 Time: 15:45 Bed 9 Private MD: ED Physician Jayce Ugarte HPI: 05/12 15:56 This 63 yrs old Female presents to ER via EMS with complaints of Anxiety, ec2 Chest Pain. 15:56 Patient arrives today for evaluation due to concern for anxiety. Patient reports he is ec2 having left-sided chest pain along with palpitations. Reports history of anxiety, states that she has multiple medical comorbidities along with multiple sick family members which is what makes her particularly anxious and tearful today. Patient reports some left-sided chest pain that is nonexertional in nature.. Historical: - Allergies: 15:53 ACETAMINOPHEN; me1 15:53 Aspirin; me1 15:53 CALCIUM CARBONATE; me1 15:53 EXCEDRIN; me1 15:53 Excedrin PM; me1 15:53 Ibuprofen; me1 15:53 NSAIDS; me1 15:53 Toradol; me1 - PMHx: 15:53 Anxiety; Depression; Hypertension; me1 - PSHx: 15:53 section; me1 - Immunization history:: Adult Immunizations unknown. - Infectious Disease History:: Denies. - Social history:: Smoking status: Patient denies any tobacco usage or history of. ROS: 15:56 Constitutional: as per hpi ec2 Exam: 15:56 Constitutional: GEN: NAD Head: atraumatic Eyes: EOMI Ears: External ears are ec2 normal. CV: regular rate LUNGS: no respiratory distress ABD: non-distended SKIN: no evidence of rashes MSK: no evidence of trauma. Psych: Anxious individual was tearful Vital Signs: 15:51 BP 156 / 72; Pulse 81; Resp 16; Temp 97.1; Pulse Ox 99% on R/A; Weight 111.13 kg; me1 Height 5 ft. 4 in. ; Pain 7/10; 16:30 BP 137 / 58; Pulse 79; Resp 16; Pulse Ox 99% ; me1 17:30 BP 130 / 63; Pulse 72; Resp 15; Pulse Ox 98% on R/A; me1 18:30 BP 132 / 64; Pulse 78; Resp 16; Temp 98.4; Pulse Ox 96% on R/A; me1 15:51 Body Mass Index 42.05 (111.13 kg, 162.56 cm) me1 15:51 Pain Scale: Adult me1 MDM: 15:49 Patient medically screened. ec2 15:56 Data reviewed: vital signs. ED course: Patient arrives today for evaluation of chest ec2 pain and anxiety. Examination remarkable for well-appearing nontoxic dividual is otherwise in no acute distress who is tearful was otherwise answering questions appropriately. Will obtain lab work, EKG, chest x-ray. Will give back droperidol and Benadryl for the patient's anxiety. Differential includes ACS, arrhythmia, electrolyte disturbances, anxiety. . 16:47 ED course: EKG independently reviewed and interpreted by me, shows normal sinus rhythm, ec2 rate of 77, no acute ST segment elevations, intervals are nonconcerning. . 16:53 ED course: CBC, metabolic profile, troponin are nonactionable. . ec2 18:08 ED course: On reassessment patient is well-appearing in no acute distress. Will ec2 discharge home have the patient follow-up with primary care. Return precautions given.. 05/12 15:55 Order name: Basic Metabolic Panel; Complete Time: 16:53 ec2 05/12 15:55 Order name: CBC with Diff; Complete Time: 16:53 ec2 05/12 15:55 Order name: Troponin HS; Complete Time: 16:53 ec2 05/12 15:55 Order name: XRAY Chest (1 view); Complete Time: 17:56 ec2 05/12 15:55 Order name: EKG; Complete Time: 15:56 ec2 05/12 15:55 Order name: Cardiac monitoring; Complete Time: 18:38 ec2 05/12 15:55 Order name: EKG - Nurse/Tech; Complete Time: 16:50 ec2 05/12 15:55 Order name: IV Saline Lock; Complete Time: 16:19 ec2 05/12 15:55 Order name: Labs collected and sent; Complete Time: 16:19 ec2 05/12 15:55 Order name: O2 Per Protocol; Complete Time: 16:07 ec2 05/12 15:55 Order name: O2 Sat Monitoring; Complete Time: 16:07 ec2 Administered Medications: 16:35 Drug: Droperidol IVP 1.25 mg IVP once Route: IVP; Site: right antecubital; me1 18:38 Follow up: Response: No adverse reaction; Marked relief of symptoms me1 16:35 Drug: diphenhydrAMINE IVP 12.5 mg IVP once Route: IVP; Site: right antecubital; me1 18:38 Follow up: Response: No adverse reaction; Marked relief of symptoms me1 Disposition Summary: 05/12/24 18:08 Discharge Ordered Notes: Location: Home ec2 Condition: Stable ec2 Diagnosis - Anxiety disorder, unspecified ec2 Followup: ec2 - With: Private Physician - When: - Reason: Re-evaluation by your physician Discharge Instructions: - Discharge Summary Sheet ec2 - Panic Attack ec2 Forms: - Medication Reconciliation Form ec2 - Antibiotic Education ec2 - Prescription Opioid Use ec2 - Patient Portal Instructions ec2 - Leadership Thank You Letter ec2 Signatures: Dispatcher [employer] Helena Silva RN RN me1 Jayce Ugarte MD MD ec2 Corrections: (The following items were deleted from the chart) 15:56 15:56 BASIC METABOLIC PANEL+C.LAB.BRZ ordered. EDMS EDMS 15:56 15:56 CBC+H.LAB.BRZ ordered. EDMS EDMS 15:56 15:56 Troponin High Sensitivity+C.LAB.BRZ ordered. EDMS EDMS
--- NOTE | 2024-05-12 18:09 | ER ---
Nurse's Notes [facility] Name: Carmel Rodriguez Age: 63 yrs Sex: Female : 1960 Arrival Date: 05/12/2024 Time: 15:45 Bed 9 Private MD: Diagnosis: Anxiety disorder, unspecified Presentation: 05/12 15:51 Chief complaint: EMS states: toned out for anxiety and chest pain that is substernal me1 and radiates to right upper back. Called to be checked out after taking anxiety med and chest pain persisted. Coronavirus screen: Vaccine status: Patient reports receiving the 2nd dose of the covid vaccine. Ebola Screen: No symptoms or risks identified at this time. Initial Sepsis Screen: Does the patient meet any 2 criteria? No. Patient's initial sepsis screen is negative. Does the patient have a suspected source of infection? No. Patient's initial sepsis screen is negative. Risk Assessment: Do you want to hurt yourself or someone else? Patient reports no desire to harm self or others. Onset of symptoms was May 12, 2024 at 14:00. 15:51 Method Of Arrival: EMS: [facility] nv1 15:51 Acuity: CRHISTINE 3 me1 Triage Assessment: 15:53 General: Appears uncomfortable, obese, well groomed, well developed, Behavior is me1 cooperative, appropriate for age, anxious, Reports feeling anxious then started having chest pain. took anxiety med and chest pain persisted. CP is substernal and radiates to right upper back. Pain: Complains of pain in xiphoid area Pain radiates to right scapular area Pain currently is 7 out of 10 on a pain scale. Quality of pain is described as sharp, shooting, Pain began 3 hours ago. Is continuous. EENT: No signs and/or symptoms were reported regarding the EENT system. Neuro: Level of Consciousness is awake, alert, obeys commands, Oriented to person, place, time, situation, Appropriate for age. Cardiovascular: Patient's skin is warm and dry. Cardiovascular: Reports chest pain. Respiratory: Airway is patent Trachea midline Respiratory effort is even, unlabored, Respiratory pattern is regular, symmetrical. GI: No signs and/or symptoms were reported involving the gastrointestinal system. : No signs and/or symptoms were reported regarding the genitourinary system. Derm: Skin is intact, is healthy with good turgor, Skin is pink, warm \T\ dry. Musculoskeletal: No signs and/or symptoms reported regarding the musculoskeletal system. Historical: - Allergies: 15:53 ACETAMINOPHEN; me1 15:53 Aspirin; me1 15:53 CALCIUM CARBONATE; me1 15:53 EXCEDRIN; me1 15:53 Excedrin PM; me1 15:53 Ibuprofen; me1 15:53 NSAIDS; me1 15:53 Toradol; me1 - PMHx: 15:53 Anxiety; Depression; Hypertension; me1 - PSHx: 15:53 section; me1 - Immunization history:: Adult Immunizations unknown. - Infectious Disease History:: Denies. - Social history:: Smoking status: Patient denies any tobacco usage or history of. Screenin:20 [facility] ED Fall Risk Assessment (Adult) History of falling in the last 3 months, nv1 including since admission No falls in past 3 months (0 pts) Confusion or Disorientation No (0 pts) Intoxicated or Sedated No (0 pts) Impaired Gait No (0 pts) Mobility Assist Device Used No (0 pt) Altered Elimination No (0 pt) Score/Fall Risk Level 0 - 2 = Low Risk Maintained a safe environment, Provided non-skid footwear, Hourly rounding (assess needs \T\ fall precautionary measures) done. Abuse screen: Denies threats or abuse. Nutritional screening: No deficits noted. Tuberculosis screening: No symptoms or risk factors identified. Assessment: 16:20 General: See triage assessment. . me1 Vital Signs: 15:51 BP 156 / 72; Pulse 81; Resp 16; Temp 97.1; Pulse Ox 99% on R/A; Weight 111.13 kg; me1 Height 5 ft. 4 in. ; Pain 7/10; 16:30 BP 137 / 58; Pulse 79; Resp 16; Pulse Ox 99% ; me1 17:30 BP 130 / 63; Pulse 72; Resp 15; Pulse Ox 98% on R/A; me1 18:30 BP 132 / 64; Pulse 78; Resp 16; Temp 98.4; Pulse Ox 96% on R/A; me1 15:51 Body Mass Index 42.05 (111.13 kg, 162.56 cm) me1 15:51 Pain Scale: Adult [facility] [place] ED Course: 15:48 Patient arrived in ED. me1 15:48 Jayce Ugarte MD is Attending Physician. ec2 15:51 Helena Turner RN is Primary Nurse. me1 15:53 Triage completed. me1 15:53 Arm band placed on Patient placed in an exam room. me1 16:19 Basic Metabolic Panel Sent. me1 16:19 CBC with Diff Sent. me1 16:19 Troponin HS Sent. me1 16:20 Patient has correct armband on for positive identification. Bed in low position. Call me1 light in reach. Side rails up X2. Provided Education on: POC. Verbalized understanding. . Client placed on continuous cardiac and pulse oximetry monitoring. NIBP monitoring applied. monitor tech on. Pulse ox on. NIBP on. 16:20 Initial lab(s) drawn, by me, sent to lab. Inserted saline lock: 22 gauge in right me1 antecubital area, using aseptic technique. 16:20 No provider procedures requiring assistance completed. Patient maintains SpO2 me1 saturation greater than 95% on room air. 16:30 EKG done, by ED staff, reviewed by Jayce Ugarte MD. me1 16:57 XRAY Chest (1 view) In Process Unspecified. EDMS 18:37 IV discontinued, intact, bleeding controlled, No redness/swelling at site. Pressure me1 dressing applied. Administered Medications: 16:35 Drug: Droperidol IVP 1.25 mg IVP once Route: IVP; Site: right antecubital; me1 18:38 Follow up: Response: No adverse reaction; Marked relief of symptoms me1 16:35 Drug: diphenhydrAMINE IVP 12.5 mg IVP once Route: IVP; Site: right antecubital; me1 18:38 Follow up: Response: No adverse reaction; Marked relief of symptoms me1 Medication: 16:20 VIS not applicable for this client. me1 Outcome: 18:08 Discharge ordered by . ec2 18:37 Discharged to home ambulatory, me1 18:37 Condition: stable 18:37 Discharge instructions given to patient, Instructed on discharge instructions, follow up and referral plans. Demonstrated understanding of instructions, follow-up care, 18:37 Patient left the ED. me1 Signatures: Dispatcher [employer] EDIL Helena Turner, MANDI RAYMOND nv1 Ugarte, Jayce, MD MD ec2
[2024-05-12 19:19] VITALS: BP 132/64; TEMP 98.4; O2SAT 96
--- NOTE | 2024-05-13 16:58 | EKG ---
Test Date: 2024-05-12 Test Time: 16:41:54 Cleaner Furniture: DENNIS MEASUREMENT RESULTS: Intervals: Rate: 77 MT: 168 QRSD: 76 QT: 392 QTc: 443 [place]: P: 41 MT: 168 QRS: 7 T: 21 INTERPRETIVE STATEMENTS: Normal sinus rhythm Normal ECG Compared to ECG 03/09/2024 13:10:32 ST (T wave) deviation no longer present Electronically Signed On 05-13-24 16:56:19 CDT by Marcus Malagon
== END 2024-05-12 18:37 | disposition home or self-care (01) ==
LOC: ER 15:45
DX: F41.9 Anxiety disorder, unspecified (principal); I10 Essential (primary) hypertension
CPT/HCPCS: 85025; 80048; 36415; 84484; 71045; J1200; 93005

== ENCOUNTER 2024-06-23 18:17 | Emergency (ER) | payer OTHER ==
[2024-06-23 20:03] LABS: PT Prothrombin Time 12.8 SECONDS (9.4-12.5); Protime INR 1.15
[2024-06-23 20:04] LABS: Absolute Basophils 0.1 K/uL (0-0.5); Absolute Eosinophils 0.1 K/uL (0-0.5); Absolute Lymphocytes (CBC) 1.2 K/uL (0.7-4.9); Absolute Monocytes 0.9 K/uL (0.1-1.3); Basophils % 0.8 % (0-1.3); Eosinophils % 1.1 % (0-4.4); Hemoglobin 15.1 g/dL (12.0-15.0); Lymphocytes % 16.6 % (15.3-44.8); MCH 35.5 pg (27.0-35.0); MCV 101.4 fL (80-100); MPV 6.9 fL (7.6-11.3); Monocytes % 11.9 % (3.3-12.3); Neutrophils % 69.6 % (41.7-73.7); Nucleated Red Blood Cells % 0.1 % (0-0); Platelets 237 thou/uL (152-406); RBC Red Blood Cell Count 4.24 M/uL (3.86-4.86); Red Cell Distribution Width 12.9 % (12.1-15.2)
[2024-06-23 20:28] LABS: Albumin 3.8 g/dL (3.4-5.0); Albumin/Globulin Ratio 0.9 (1.1-1.8); Anion Gap 9.4 mEq/L (5.0-15.0); Bilirubin Direct 0.2 mg/dL (0-0.2); Bilirubin Indirect, Calculated 0.7 mg/dL (0.2-0.8); Bilirubin Total 0.9 mg/dL (0.2-1.0); Globulin 4.2 g/dL (2.3-3.5); Troponin High Sensitivity 6.5 pg/mL (<58.9)
[2024-06-23 20:33] LABS: Potassium 3.4 mEq/L (3.5-5.1)
--- NOTE | 2024-06-23 21:24 | RAD REPORT ---
EXAMINATION: ONE VIEW CHEST XR CLINICAL INDICATION: Female, 64 years old.,CHEST PAIN TECHNIQUE: Frontal chest projection is submitted. Examination is limited by patient positioning and t echnique. COMPARISON: 05/12/2024 FINDINGS: The lungs are well inflated and clear apart from mild bibasilar atelectasis. No pneumothorax or siza ble effusion. The heart is upper limit of normal in size, stable. IMPRESSION: No acute intrathoracic abnormalities. No significant interval change.
--- NOTE | 2024-06-23 21:33 | RAD REPORT ---
EXAMINATION: Abdomen Exam Limited CLINICAL HISTORY: [facility] MAIN N ABD PAIN Bed Name: 7 COMPARISON: 12/01/2021 TECHNIQUE: Limited upper abdominal grayscale and color flow sonographic images. FINDINGS: Gallbladder: Multiple shadowing stones. No pericholecystic fluid. Bile ducts: No intrahepatic or extrahepatic biliary dilatation. Common bile duct measures 4 mm. Liver: Visualized portions of the liver demonstrate normal echogenicity with no suspicious findings. Fluid: No ascites. IMPRESSION: Cholelithiasis. No other acute sonographic findings.
[2024-06-23] MEDS ORDERED: NA CHLORIDE 0.9% 1,000 ML ONE (21:51)
--- NOTE | 2024-06-23 22:32 | EDPHYS ---
Physician Documentation [facility] Name: Carmel Rodriguez Age: 64 yrs Sex: Female : 1960 Arrival Date: 06/23/2024 Time: 18:17 Bed 7 Private MD: ED Physician Samara Alcantara HPI: 06/23 19:57 This 64 yrs old Female presents to ER via EMS with complaints of Blood gb1 Pressure Problem - High, Chest Pain. 19:57 64-year-old female here with concern for elevated blood pressure she takes medications gb1 for. She does not have a list of medications with her. She states that she feels chest pressure in the middle of her chest when she is at work and sometimes he does get anxiety and nervousness about her blood pressure and her medical problems. [facility] but she does not know the name. She denies any fever or chills but states that she has been having swelling in her legs and she is more short of breath when she gets up and walks around. It is also more difficult for her to lay around at night and get rest she feels short of breath then 2.. Historical: - Allergies: 18:31 ACETAMINOPHEN; ph 18:31 Aspirin; ph 18:31 CALCIUM CARBONATE; ph 18:31 EXCEDRIN; ph 18:31 Excedrin PM; ph 18:31 Ibuprofen; ph 18:31 NSAIDS; ph 18:31 Toradol; ph - PMHx: 18:31 Anxiety; Depression; Hypertension; ph - PSHx: 18:31 section; ph - Immunization history:: Adult Immunizations unknown. - Infectious Disease History:: Denies. - Social history:: Smoking status: Patient denies any tobacco usage or history of. Exam: 19:57 Constitutional: This is a well developed, well nourished patient who is awake, alert, gb1 and in no acute distress. Head/Face: Normocephalic, atraumatic. Eyes: Pupils equal round and reactive to light, extra-ocular motions intact. Lids and lashes normal. Conjunctiva and sclera are non-icteric and not injected. Cornea within normal limits. Periorbital areas with no swelling, redness, or edema. ENT: Nares patent. No nasal discharge, no septal abnormalities noted. Tympanic membranes are normal and external auditory canals are clear. Oropharynx with no redness, swelling, or masses, exudates, or evidence of obstruction, uvula midline. Mucous membranes moist. Chest/axilla: Normal chest wall appearance and motion. Nontender with no deformity. No lesions are appreciated. Cardiovascular: Regular rate and rhythm with a normal S1 and S2. No gallops, murmurs, or rubs. Normal PMI, no JVD. No pulse deficits. Respiratory: Lungs have equal breath sounds bilaterally, clear to auscultation and percussion. No rales, rhonchi or wheezes noted. No increased work of breathing, no retractions or nasal flaring. Abdomen/GI: Soft, non-tender, with normal bowel sounds. No distension or tympany. No guarding or rebound. No evidence of tenderness throughout. Back: No spinal tenderness. No costovertebral tenderness. Full range of motion. MS/ Extremity: Pulses equal, no cyanosis. Neurovascular intact. Full, normal range of motion. +1 pitting edema bilateral lower extremities Vital Signs: 18:29 BP 156 / 77; Pulse 75; Resp 18; Temp 97.9; Pulse Ox 97% ; ph 19:18 BP 157 / 77; Pulse 76; Resp 17; Temp 97.9; Pulse Ox 99% ; Pain 5/10; bm8 19:55 BP 162 / 87; Pulse 83; Resp 18; Pulse Ox 100% on R/A; kj2 20:48 BP 160 / 66; Pulse 81; Pulse Ox 94% ; kj2 22:04 BP 143 / 65; Pulse 82; Resp 20; Pulse Ox 100% on R/A; kj2 22:34 BP 151 / 71; Pulse 76; Resp 18; Temp 98.2; Pulse Ox 100% on R/A; kj2 19:18 Pain Scale: Adult bm8 [place] Coma Score: 19:18 Eye Response: spontaneous(4). Motor Response: obeys commands(6). Verbal Response: bm8 oriented(5). Total: 15. 22:01 Eye Response: spontaneous(4). Motor Response: obeys commands(6). Verbal Response: bm8 oriented(5). Total: 15. MDM: 18:49 Patient medically screened. gb1 19:57 Data reviewed: vital signs, nurses notes, lab test result(s), EKG, EKG shows normal gb1 sinus rhythm at a rate of 82 bpm done at 1914. No signs of acute ischemia within normal QTc.. ED course: 64-year-old female with history of anxiety, depression and hypertension here with elevated blood pressures. She also endorses chest pain and shortness of breath as well as lower extremity swelling. Concern for new onset CHF, hypertensive urgency versus emergency, doubt PE at this time. Doubt pneumonia. Patient's care transitioned to Dr. Alcantara at 1999 pending labs and chest x-ray. Patient's family at the bedside.. 21:13 ED course: 64-year-old female signed out to me by daytime physician Dr. Metcalf. sp3 Patient is a 64-year-old female with epigastric pain rating to the right upper quadrant. I have added on ultrasound of the right upper quadrant and the lipase level. Cardiac workup ordered by day physician. All workup pending and I will follow-up with patient. Disposition pending workup and patient course. Vital signs are normal the patient has mild pain to palpation epigastrically without peritoneal signs, rebound or guarding. She is resting in no acute distress with no active emesis or nausea.. 22:29 ED course: Second troponin negative and ultrasound demonstrates stable findings with no sp3 pericholecystic fluid or ductal dilatation. LFTs are normal. We will safely discharge patient home at this time. Sodium at 127 and saline has been given. Patient has no symptoms from this. Vital signs are normal. Patient okay with the plan and PCP follow-up.. 06/23 19:33 Order name: Basic Metabolic Panel; Complete Time: 21:36 gb1 06/23 19:33 Order name: CBC with Diff; Complete Time: 20:19 gb1 06/23 19:33 Order name: LFT's; Complete Time: 21:36 gb1 06/23 19:33 Order name: NT PRO-BNP; Complete Time: 21:36 gb1 06/23 19:33 Order name: PT-INR; Complete Time: 20:19 gb1 06/23 19:33 Order name: Troponin HS; Complete Time: 21:36 gb1 06/23 19:33 Order name: Lipase; Complete Time: 21:36 gb1 06/23 20:11 Order name: Troponin High Sensitivity: 2 hours after first; Complete Time: 22:28 sp3 06/23 19:33 Order name: XRAY Chest (1 view); Complete Time: 21:36 gb1 06/23 20:20 Order name: US Abdomen Limited: RUQ; Complete Time: 21:36 sp3 06/23 19:33 Order name: EKG; Complete Time: 19:33 gb1 06/23 19:33 Order name: Cardiac monitoring; Complete Time: 19:45 gb1 06/23 19:33 Order name: EKG - Nurse/Tech; Complete Time: 19:45 gb1 06/23 19:33 Order name: IV Saline Lock; Complete Time: 19:45 gb1 06/23 19:33 Order name: Labs collected and sent; Complete Time: 19:45 gb1 06/23 19:33 Order name: O2 Per Protocol; Complete Time: 19:45 gb1 06/23 19:33 Order name: O2 Sat Monitoring; Complete Time: 19:45 gb1 Administered Medications: 22:01 Drug: NS 0.9% IV 1000 ml IV at 1 bolus Per protocol; 1000 mL bolus Route: IV; Rate: 1 bm8 bolus; Site: right forearm; 22:54 Follow up: IV Status: Completed infusion; IV Intake: 1000ml kj2 22:54 Follow up: Response: No adverse reaction kj2 Disposition Summary: 06/23/24 22:32 Discharge Ordered Notes: Location: Home sp3 Condition: Stable sp3 Diagnosis - Epigastric pain, hyponatremia sp3 Followup: sp3 - With: Private Physician - When: Upon discharge from the Emergency Department - Reason: Continuance of care Discharge Instructions: - Discharge Summary Sheet sp3 - Abdominal Pain, Adult sp3 - Hyponatremia sp3 Forms: - Medication Reconciliation Form sp3 - Antibiotic Education sp3 - Prescription Opioid Use sp3 - Patient Portal Instructions sp3 - Leadership Thank You Letter sp3 Signatures: Dispatcher [employer] EDArianne Saavedra RN RN ph Samara Alcantara MD MD sp3 Anastasiia Metcalf MD MD gb1 Naeem Menjivar RN RN bm8 Ann Bianchi RN kj2 Corrections: (The following items were deleted from the chart) 19:34 19:33 BASIC METABOLIC PANEL+C.LAB.BRZ ordered. EDMS EDMS 19:34 19:33 CBC+H.LAB.BRZ ordered. EDMS EDMS 19:34 19:33 HEPATIC FUNCTION+C.LAB.BRZ ordered. EDMS EDMS 19:34 19:33 PROBNP+C.LAB.BRZ ordered. EDMS EDMS 19:34 19:33 PROTIME (+INR)+COAG.LAB.BRZ ordered. EDMS EDMS 19:34 19:33 Troponin High Sensitivity+C.LAB.BRZ ordered. EDMS EDMS 20:20 20:20 Abdomen Limited+US.RAD.BRZ ordered. EDMS EDMS
--- NOTE | 2024-06-23 22:32 | ER ---
Nurse's Notes [facility] Name: Carmel Rodriguez Age: 64 yrs Sex: Female : 1960 Arrival Date: 06/23/2024 Time: 18:17 Bed 7 Private MD: Diagnosis: Epigastric pain, hyponatremia Presentation: 06/23 18:29 Chief complaint: EMS states: Pt states that BP has been high the past few days when she ph gets off of work, also c/o pain in diaphragm and mid-sternal/epigastric area, initial BP 170s systolic, took home BP medication prior to EMS arrival. Coronavirus screen: Vaccine status: Patient reports receiving the 2nd dose of the covid vaccine. Ebola Screen: No symptoms or risks identified at this time. Initial Sepsis Screen: Does the patient meet any 2 criteria? No. Patient's initial sepsis screen is negative. Does the patient have a suspected source of infection? No. Patient's initial sepsis screen is negative. Risk Assessment: Do you want to hurt yourself or someone else? Patient reports no desire to harm self or others. Onset of symptoms was June 23, 2024. 18:29 Method Of Arrival: EMS: [facility] 18:29 Acuity: CHRISTINE 2 ph Triage Assessment: 18:32 General: Appears in no apparent distress. Behavior is calm, cooperative. Pain: ph Complains of pain in diaphragm and xiphoid area Pain radiates to right scapular area. Neuro: Level of Consciousness is awake, alert, obeys commands, Oriented to person, place, time, situation. Cardiovascular: Reports chest pain, lightheadedness, Edema is 3+ to left midcalf, left ankle, left foot, right midcalf, right ankle and right foot Rhythm is sinus rhythm. Respiratory: Airway is patent Respiratory effort is even, unlabored. Derm: Skin is pink, warm \T\ dry. Historical: - Allergies: 18:31 ACETAMINOPHEN; ph 18:31 Aspirin; ph 18:31 CALCIUM CARBONATE; ph 18:31 EXCEDRIN; ph 18:31 Excedrin PM; ph 18:31 Ibuprofen; ph 18:31 NSAIDS; ph 18:31 Toradol; ph - PMHx: 18:31 Anxiety; Depression; Hypertension; ph - PSHx: 18:31 section; ph - Immunization history:: Adult Immunizations unknown. - Infectious Disease History:: Denies. - Social history:: Smoking status: Patient denies any tobacco usage or history of. Screenin:33 [facility] ED Fall Risk Assessment (Adult) History of falling in the last 3 months, ph including since admission No falls in past 3 months (0 pts) Confusion or Disorientation No (0 pts) Intoxicated or Sedated No (0 pts) Impaired Gait No (0 pts) Mobility Assist Device Used No (0 pt) Altered Elimination No (0 pt) Score/Fall Risk Level 0 - 2 = Low Risk Oriented to surroundings, Maintained a safe environment, Hourly rounding (assess needs \T\ fall precautionary measures) done. Abuse screen: Denies threats or abuse. Denies injuries from another. Nutritional screening: No deficits noted. Tuberculosis screening: No symptoms or risk factors identified. Assessment: 19:18 Reassessment: Patient appears in no apparent distress at this time. Patient and/or bm8 family updated on plan of care and expected duration. Pain level reassessed. Patient is alert, oriented x 3, equal unlabored respirations, skin warm/dry/pink. General: Appears in no apparent distress. comfortable, Behavior is calm, cooperative, appropriate for age. Pain: Complains of pain in right foot and right ankle and right midcalf and left foot and left ankle and left midcalf and back and right scapular area and chest and xiphoid area and diaphragm Pain currently is 5 out of 10 on a pain scale. Pain began unk. Neuro: No deficits noted. Level of Consciousness is awake, alert, obeys commands, Oriented to person, place, time, situation, Appropriate for age. Cardiovascular: Denies chest pain, Heart tones S1 S2 present Capillary refill < 3 seconds in bilateral fingers toes Patient's skin is warm and dry. Rhythm is sinus rhythm. Respiratory: Airway is patent Trachea midline Respiratory effort is even, unlabored, Respiratory pattern is regular, symmetrical, Breath sounds are clear bilaterally. GI: Abdomen is round non-distended, obese, Bowel sounds present X 4 quads. Reports upper abdominal pain. : Urine is clear. EENT: No signs and/or symptoms were reported regarding the EENT system. Derm: No signs and/or symptoms reported regarding the dermatologic system. Musculoskeletal: Circulation, motion, and sensation intact. Capillary refill Range of motion: intact in all extremities, Swelling present in right leg and left leg Reports pain in right foot, left foot, right leg and left leg. 20:48 Reassessment: Patient appears in no apparent distress at this time. Patient and/or kj2 family updated on plan of care and expected duration. Pain level reassessed. Patient is alert, oriented x 3, equal unlabored respirations, skin warm/dry/pink. 22:03 Reassessment: Patient appears in no apparent distress at this time. Patient and/or kj2 family updated on plan of care and expected duration. Pain level reassessed. Patient is alert, oriented x 3, equal unlabored respirations, skin warm/dry/pink. 22:35 Reassessment: Patient appears in no apparent distress at this time. Patient and/or kj2 family updated on plan of care and expected duration. Pain level reassessed. Patient is alert, oriented x 3, equal unlabored respirations, skin warm/dry/pink. Pain: Denies pain. Vital Signs: 18:29 BP 156 / 77; Pulse 75; Resp 18; Temp 97.9; Pulse Ox 97% ; ph 19:18 BP 157 / 77; Pulse 76; Resp 17; Temp 97.9; Pulse Ox 99% ; Pain 5/10; bm8 19:55 BP 162 / 87; Pulse 83; Resp 18; Pulse Ox 100% on R/A; kj2 20:48 BP 160 / 66; Pulse 81; Pulse Ox 94% ; kj2 22:04 BP 143 / 65; Pulse 82; Resp 20; Pulse Ox 100% on R/A; kj2 22:34 BP 151 / 71; Pulse 76; Resp 18; Temp 98.2; Pulse Ox 100% on R/A; kj2 19:18 Pain Scale: Adult bm8 [place] Coma Score: 19:18 Eye Response: spontaneous(4). Motor Response: obeys commands(6). Verbal Response: bm8 oriented(5). Total: 15. 22:01 Eye Response: spontaneous(4). Motor Response: obeys commands(6). Verbal Response: bm8 oriented(5). Total: 15. ED Course: 18:29 Patient arrived in ED. ph 18:31 Triage completed. ph 18:31 Anastasiia Metcalf MD is Attending Physician. gb1 18:33 Arm band placed on Patient placed in an exam room, on a stretcher, on front desk monitor, ph on pulse oximetry. 18:33 Patient has correct armband on for positive identification. Placed in gown. Bed in low ph position. Call light in reach. Side rails up X2. Client placed on continuous cardiac and pulse oximetry monitoring. NIBP monitoring applied. air sampling and monitoring on. Door closed. Noise minimized. 18:33 Patient maintains SpO2 saturation greater than 95% on room air. ph 19:16 EKG done, by ED staff, reviewed by Anastasiia Metcalf MD. oe 19:18 Naeem Menjivar, RN is Primary Nurse. bm8 19:18 No provider procedures requiring assistance completed. Initial lab(s) drawn, by pr, bm8 sent to lab. Urine collected: clean catch specimen, clear. Inserted saline lock: 20 gauge in left antecubital area, using aseptic technique. Blood collected. Flushed with 10 mL NS. 19:53 Basic Metabolic Panel Sent. kj2 19:53 CBC with Diff Sent. kj2 19:53 LFT's Sent. kj2 19:53 NT PRO-BNP Sent. kj2 19:53 PT-INR Sent. kj2 19:53 Troponin HS Sent. kj2 19:55 Assisted to bathroom. kj2 19:57 Provided Education on: call light, fall precaution. kj2 20:01 Attending Physician role handed off by Anastasiia Metcalf MD sp3 20:01 Samara Alcantara MD is Attending Physician. sp3 20:09 XRAY Chest (1 view) In Process Unspecified. EDMS 21:05 US Abdomen Limited: RUQ In Process Unspecified. EDMS 22:03 Troponin High Sensitivity: 2 hours after first Sent. kj2 22:04 Assisted to bathroom. kj2 22:53 IV discontinued, intact, bleeding controlled, No redness/swelling at site. Pressure kj2 dressing applied. Administered Medications: 22:01 Drug: NS 0.9% IV 1000 ml IV at 1 bolus Per protocol; 1000 mL bolus Route: IV; Rate: 1 bm8 bolus; Site: right forearm; 22:54 Follow up: IV Status: Completed infusion; IV Intake: 1000ml kj2 22:54 Follow up: Response: No adverse reaction kj2 Medication: 18:33 VIS not applicable for this client. ph Intake: 22:54 IV: 1000ml; Total: 1000ml. kj2 Outcome: 22:32 Discharge ordered by . sp3 22:36 Condition: stable kj2 22:36 Discharge instructions given to kj2 22:54 Discharged to home ambulatory, kj2 22:55 Patient left the ED. kj2 Signatures: Dispatcher [employer] EDArianne Saavedra, RN RN ChavezHoang Setul, MD MD sp3 Anastasiia Metcalf MD MD gb1 Naeem Menjivar RN RN bm8 Ann Bianchi RN RN kj2 Corrections: (The following items were deleted from the chart) 22:03 22:01 Pain: Denies pain. bm8 bm8 22:03 22:01 Reassessment: Patient appears in no apparent distress at this time. Patient bm8 and/or family updated on plan of care and expected duration. Pain level reassessed. Patient is alert, oriented x 3, equal unlabored respirations, skin warm/dry/pink. Patient denies pain at this time. Patient states feeling better. Patient states symptoms have improved. bm8 22:03 22:01 BP 179 / 64; Pulse 69bpm; Resp 15bpm; Pulse Ox 99%; Temp 97.9F; Pain 0/10, Adult; bm8 bm8
[2024-06-24 07:10] VITALS: O2SAT 100
[2024-06-24 07:11] VITALS: BP 151/71; TEMP 98.2
--- NOTE | 2024-06-24 12:56 | EKG ---
Test Date: 2024-06-23 Test Time: 19:14:29 Rewinder Operator: KOURTNEY MEASUREMENT RESULTS: Intervals: Rate: 82 [place]: 172 QRSD: 82 QT: 406 QTc: 474 [place]: P: 49 [place]: 172 QRS: 15 T: 5 INTERPRETIVE STATEMENTS: Normal sinus rhythm Normal ECG Compared to ECG 05/12/2024 16:41:54 No significant changes Electronically Signed On 06-24-24 12:54:19 CDT by Marcus Malagon
== END 2024-06-23 22:55 | disposition home or self-care (01) ==
LOC: ER 18:17
DX: R10.13 Epigastric pain (principal); E87.1 Hypo-osmolality and hyponatremia; I10 Essential (primary) hypertension; F41.9 Anxiety disorder, unspecified
CPT/HCPCS: 93005; 85025; 80048; 36415; 85610; 80076; 84484 ×2; 83690; 83880; 71045; 76705; 96360; 99285; J7030

== ENCOUNTER 2024-09-26 18:16 | Emergency (ER) | payer OTHER ==
[2024-09-26 19:12] LABS: Absolute Eosinophils 0.2 K/uL (0-0.5); Absolute Monocytes 0.7 K/uL (0.1-1.3); Absolute Neutrophil 4.6 K/uL (1.8-8.0); Basophils % 0.7 % (0-1.3); Eosinophils % 2.4 % (0-4.4); Hematocrit 40.1 % (36.0-45.0); Lymphocytes % 14.7 % (15.3-44.8); MCH 35.5 pg (27.0-35.0); MCHC 34.9 g/dL (32.0-36.0); MCV 101.5 fL (80-100); MPV 6.4 fL (7.6-11.3); Monocytes % 10.7 % (3.3-12.3); Neutrophils % 71.5 % (41.7-73.7); Nucleated Red Blood Cells % 0.1 % (0-0); Platelets 285 thou/uL (152-406); RBC Red Blood Cell Count 3.95 M/uL (3.86-4.86); Red Cell Distribution Width 12.4 % (12.1-15.2)
[2024-09-26] MEDS ORDERED: LORazepam 2 MG/ML VIAL ONE (19:28)
[2024-09-26 19:30] LABS: Anion Gap 10.7 mEq/L (5.0-15.0); Potassium 3.7 mEq/L (3.5-5.1); Troponin High Sensitivity 8.6 pg/mL (<58.9)
--- NOTE | 2024-09-26 19:33 | RAD REPORT ---
EXAMINATION: ONE VIEW CHEST XR CLINICAL INDICATION: CHEST PAIN TECHNIQUE: Frontal chest projection is submitted. Examination is limited by patient positioning and t echnique. COMPARISON: No prior exam. FINDINGS: Mild interstitial pulmonary edema. Heart is moderately enlarged. No displaced fractures identified. IMPRESSION: Mild CHF is possible.
[2024-09-26] MEDS ORDERED: MIRTAZAPINE 15 MG TAB ONE (21:27)
[2024-09-26] MEDS ORDERED: DIAZEPAM 5 MG TABLET ONE (21:30)
--- NOTE | 2024-09-26 22:12 | ER ---
Nurse's Notes [facility] Name: Carmel Rodriguez Age: 64 yrs Sex: Female : 1960 Arrival Date: 09/26/2024 Time: 18:16 Bed 17 Private MD: Diagnosis: Anxiety disorder, unspecified;Chest pain, unspecified;Non cardiac Chest pain Presentation: 09/26 18:34 Chief complaint: Patient states: has hx of anxiety and high blood pressure, gets hot iw and cold flashes. Coronavirus screen: At this time, the client does not indicate any symptoms associated with coronavirus-19. Ebola Screen: No symptoms or risks identified at this time. Initial Sepsis Screen: Does the patient meet any 2 criteria? No. Patient's initial sepsis screen is negative. Does the patient have a suspected source of infection? No. Patient's initial sepsis screen is negative. Risk Assessment: Do you want to hurt yourself or someone else? Patient reports no desire to harm self or others. 18:34 Method Of Arrival: Ambulatory iw 18:34 Acuity: CHRISTINE 3 iw Historical: - Allergies: 18:35 NKA; iw - Home Meds: 18:35 hydralazine 50 mg Oral tab 1 tab 2 times per day [Active]; metoprolol tartrate 50 mg iw Oral tab 1 tab 2 times per day [Active]; hydroxyzine HCl 50 mg Oral tab 1 tab daily [Active]; losartan 100 mg Oral tab 1 tab once daily [Active]; - PMHx: 18:35 Anxiety; Hypertension; Depression; iw - PSHx: 18:35 section; iw - Immunization history:: Adult Immunizations up to date. - Infectious Disease History:: Denies. - Social history:: Smoking status: Patient denies any tobacco usage or history of. Patient uses alcohol, occasionally. - Family history:: not pertinent. Screenin:43 [facility] ED Fall Risk Assessment (Adult) History of falling in the last 3 months, cp4 including since admission No falls in past 3 months (0 pts) Confusion or Disorientation No (0 pts) Intoxicated or Sedated No (0 pts) Impaired Gait No (0 pts) Mobility Assist Device Used No (0 pt) Altered Elimination No (0 pt) Score/Fall Risk Level 0 - 2 = Low Risk Oriented to surroundings, Maintained a safe environment, Assessed \T\ reinforced patient's understanding of fall precautions, Hourly rounding (assess needs \T\ fall precautionary measures) done. Abuse screen: Denies threats or abuse. Nutritional screening: No deficits noted. Tuberculosis screening: No symptoms or risk factors identified. Assessment: 18:55 Reassessment: Patient appears in no apparent distress at this time. Patient and/or db family updated on plan of care and expected duration. Pain level reassessed. Patient is alert, oriented x 3, equal unlabored respirations, skin warm/dry/pink. General: Appears in no apparent distress. comfortable, Behavior is calm, cooperative. Neuro: Level of Consciousness is awake, alert, obeys commands, Oriented to person, place, time, situation. Respiratory: Airway Respiratory effort is even, unlabored, Respiratory pattern is regular, symmetrical. 19:43 Pain: Denies pain. Cardiovascular: Patient's skin is warm and dry. GI: No signs and/or cp4 symptoms were reported involving the gastrointestinal system. : No signs and/or symptoms were reported regarding the genitourinary system. EENT: No signs and/or symptoms were reported regarding the EENT system. Derm: No signs and/or symptoms reported regarding the dermatologic system. Musculoskeletal: No signs and/or symptoms reported regarding the musculoskeletal system. 20:30 Reassessment: Patient appears in no apparent distress at this time. Patient and/or cp4 family updated on plan of care and expected duration. Pain level reassessed. Patient is alert, oriented x 3, equal unlabored respirations, skin warm/dry/pink. 21:30 Reassessment: Patient appears in no apparent distress at this time. Patient and/or cp4 family updated on plan of care and expected duration. Pain level reassessed. Patient is alert, oriented x 3, equal unlabored respirations, skin warm/dry/pink. Vital Signs: 18:34 BP 169 / 80; Pulse 72; Resp 16; Pulse Ox 97% on R/A; Weight 112.04 kg; Height 5 ft. 5 iw in. ; 19:58 BP 143 / 71; Pulse 7; Resp 18; Pulse Ox 98% ; cp4 21:00 BP 142 / 68; Pulse 73; Resp 18; Pulse Ox 97% ; cp4 22:00 BP 149 / 74; Pulse 74; Resp 18; Pulse Ox 99% ; cp4 22:43 BP 146 / 67; Pulse 72; Resp 18; Pulse Ox 98% ; cp4 18:34 Body Mass Index 41.10 (112.04 kg, 165.1 cm) iw [place] Coma Score: 09/27 18:44 Eye Response: spontaneous(4). Motor Response: obeys commands(6). Verbal Response: sp4 oriented(5). Total: 15. ED Course: 09/26 18:23 Patient arrived in ED. ra3 18:32 Jayce Ugarte MD is Attending Physician. ec2 18:35 Triage completed. iw 18:38 Arm band placed on. iw 18:40 Elaine Gracia, RN is Primary Nurse. db 19:03 Attending Physician role handed off by Jayce Ugarte MD sp4 19:03 Marcos Dangelo MD is Attending Physician. sp4 19:05 Initial lab(s) drawn, by me, sent to lab. db 19:07 Inserted saline lock: 20 gauge in right antecubital area, using aseptic technique. db Blood collected. Flushed with 10 mL NS. 19:23 Karie Oscar is Primary Nurse. cp4 19:23 XRAY Chest (1 view) In Process Unspecified. EDMS 19:43 Placed in gown. Bed in low position. Call light in reach. Side rails up X2. cp4 19:43 No provider procedures requiring assistance completed. cp4 Administered Medications: 19:30 Drug: Ativan IVP 1 mg IVP once Route: IVP; Site: right antecubital; cp4 22:45 Follow up: Response: No adverse reaction cp4 21:37 Drug: Diazepam PO 5 mg PO once Route: PO; cp4 22:45 Follow up: Response: No adverse reaction cp4 21:37 Drug: Mirtazapine PO 30 mg PO once Route: PO; cp4 22:45 Follow up: Response: No adverse reaction cp4 Medication: 19:43 VIS not applicable for this client. cp4 Outcome: 22:12 Discharge ordered by . sp4 22:46 Patient left the ED. cp4 Signatures: Dispatcher [employer] EDDionne Haq RN RN iw Elaine Gracia, Marcos Vu RN, MD MD spJayce Quijano MD MD ec2 Karie Oscar cp4 [place] ra3 Corrections: (The following items were deleted from the chart) 18:38 18:34 BP 169 / 80; Pulse 72bpm; Resp 16bpm; Pulse Ox 97% RA; iw iw
--- NOTE | 2024-09-26 22:12 | EDPHYS ---
Physician Documentation [facility] Name: Carmel Rodriguez Age: 64 yrs Sex: Female : 1960 Arrival Date: 09/26/2024 Time: 18:16 Bed 17 Private MD: ED Physician Marcos Dangelo HPI: 09/26 18:41 This 64 yrs old Female presents to ER via Ambulatory with complaints of High ec2 Blood Pressure - teary eyes, Anxiety. 18:41 Patient arrives today for evaluation of anxiety and chest pressure. Patient reports ec2 that she is markedly anxious, states that she felt some chest discomfort with her anxiety. Patient was previously on buspirone however no longer taking this. Does take Atarax as needed as needed for anxiety. . Historical: - Allergies: 18:35 NKA; iw - Home Meds: 18:35 hydralazine 50 mg Oral tab 1 tab 2 times per day [Active]; metoprolol tartrate 50 mg iw Oral tab 1 tab 2 times per day [Active]; hydroxyzine HCl 50 mg Oral tab 1 tab daily [Active]; losartan 100 mg Oral tab 1 tab once daily [Active]; - PMHx: 18:35 Anxiety; Hypertension; Depression; iw - PSHx: 18:35 section; iw - Immunization history:: Adult Immunizations up to date. - Infectious Disease History:: Denies. - Social history:: Smoking status: Patient denies any tobacco usage or history of. Patient uses alcohol, occasionally. - Family history:: not pertinent. ROS: 18:41 Constitutional: as per hpi ec2 09/27 18:44 Constitutional: Negative for fever, chills, and weight loss, for anxiety, positive for sp4 emotional upset, positive for chest discomfort All other systems are negative, Exam: 09/26 18:41 Constitutional: GEN: NAD Head: atraumatic Eyes: EOMI Ears: External ears are ec2 normal. CV: regular rate LUNGS: no respiratory distress ABD: non-distended SKIN: no evidence of rashes MSK: no evidence of trauma. Psych: Anxious individual who is tearful and otherwise cooperative in no acute distress 09/27 18:44 Constitutional: This is a well developed, well nourished patient who is awake, alert, sp4 and in no acute distress. Head/Face: Normocephalic, atraumatic. Eyes: Pupils equal round and reactive to light, extra-ocular motions intact. Lids and lashes normal. Conjunctiva and sclera are not injected. Cornea within normal limits. Periorbital areas with no swelling, redness, or edema. ENT: Nares patent. No nasal discharge, no septal abnormalities noted. Tympanic membranes are normal and external auditory canals are clear. Oropharynx with no redness, swelling, or masses, exudates, or evidence of obstruction, uvula midline. Mucous membranes moist. Neck: Trachea midline, no thyromegaly or masses palpated, and no cervical lymphadenopathy. Supple, full range of motion without nuchal rigidity, or vertebral point tenderness. Chest/axilla: Normal chest wall appearance and motion. Nontender with no deformity. No lesions are appreciated. Cardiovascular: Regular rate and rhythm with a normal S1 and S2. No gallops, murmurs, or rubs. Normal PMI, no JVD. No pulse deficits. Respiratory: Lungs have equal breath sounds bilaterally, clear to auscultation and percussion. No rales, rhonchi or wheezes noted. No increased work of breathing, no retractions or nasal flaring. Abdomen/GI: Soft, with normal bowel sounds. No distension or tympany. No guarding or rebound. No evidence of tenderness throughout. Back: No spinal tenderness. No costovertebral tenderness. Skin: Warm, dry with normal turgor. Normal color with no rashes, no lesions, and no evidence of cellulitis. MS/ Extremity: Pulses equal, no cyanosis. Neurovascular intact. Full, normal range of motion. Neuro: Awake and alert, GCS 15, oriented to person, place, time, and situation. Cranial nerves II-XII grossly intact. Motor strength 5/5 in all extremities. Sensory grossly intact. Psych: Awake, alert, with orientation to person, place and time. Behavior, mood, and affect are within normal limits ECG was reviewed by the Attending Physician. EKG at 1849 normal sinus rhythm Vital Signs: 09/26 18:34 BP 169 / 80; Pulse 72; Resp 16; Pulse Ox 97% on R/A; Weight 112.04 kg; Height 5 ft. 5 iw in. ; 19:58 BP 143 / 71; Pulse 7; Resp 18; Pulse Ox 98% ; cp4 21:00 BP 142 / 68; Pulse 73; Resp 18; Pulse Ox 97% ; cp4 22:00 BP 149 / 74; Pulse 74; Resp 18; Pulse Ox 99% ; cp4 22:43 BP 146 / 67; Pulse 72; Resp 18; Pulse Ox 98% ; cp4 18:34 Body Mass Index 41.10 (112.04 kg, 165.1 cm) iw [place] Coma Score: 09/27 18:44 Eye Response: spontaneous(4). Motor Response: obeys commands(6). Verbal Response: sp4 oriented(5). Total: 15. MDM: 09/26 18:32 Medical Screening Exam initiated ec2 18:41 Data reviewed:. Data reviewed: vital signs, nurses notes. ED course: Patient arrives ec2 today for anxiety and chest discomfort. Examination is revealing for tearful individuals otherwise in no acute distress. Will obtain a cardiac workup. Will give the patient Ativan. Differential diagnosis considered include processes such as ACS, anxiety, PE, dissection.. 18:53 ED course: EKG independently reviewed and interpreted by me, shows normal sinus rhythm, ec2 rate 73, no acute ST segment elevations, intervals are nonactionable.. 22:11 Differential diagnosis: hypertensive crisis, Malignant HTN, Anxiety attack. Data sp4 reviewed: lab test result(s), radiologic studies. 09/26 18:41 Order name: Basic Metabolic Panel; Complete Time: 20:57 2 09/26 18:41 Order name: CBC with Diff; Complete Time: 20:57 2 09/26 18:41 Order name: NT PRO-BNP; Complete Time: 20:57 ec2 09/26 18:41 Order name: Troponin HS; Complete Time: 20:57 ec2 09/26 21:11 Order name: Troponin High Sensitivity; Complete Time: 22:07 sp4 09/26 18:41 Order name: XRAY Chest (1 view); Complete Time: 20:57 2 09/26 18:41 Order name: EKG; Complete Time: 18:42 ec2 09/26 21:11 Order name: EKG; Complete Time: 21:11 sp4 09/26 18:41 Order name: Cardiac monitoring; Complete Time: 19:27 ec2 09/26 18:41 Order name: EKG - Nurse/Tech; Complete Time: 18:52 ec2 09/26 18:41 Order name: IV Saline Lock; Complete Time: 19:27 ec2 09/26 18:41 Order name: Labs collected and sent; Complete Time: : ec2 09/26 18:41 Order name: O2 Per Protocol; Complete Time: : ec2 09/26 18:41 Order name: O2 Sat Monitoring; Complete Time: : ec2 EC:49 Rate is 73 beats/min. Rhythm is regular, Normal Sinus Rhythm. QRS [place] is Normal. [place] sp4 interval is normal. QRS interval is normal. QT interval is normal. No Q waves. T waves are Normal. No ST changes noted. Clinical impression: Normal ECG. Interpreted by me. Reviewed by me. Administered Medications: 19:30 Drug: Ativan IVP 1 mg IVP once Route: IVP; Site: right antecubital; cp4 22:45 Follow up: Response: No adverse reaction cp4 21:37 Drug: Diazepam PO 5 mg PO once Route: PO; cp4 22:45 Follow up: Response: No adverse reaction cp4 21:37 Drug: Mirtazapine PO 30 mg PO once Route: PO; cp4 22:45 Follow up: Response: No adverse reaction cp4 Disposition Summary: 09/26/24 22:12 Discharge Ordered Notes: Location: Home sp4 Condition: Stable sp4 Diagnosis - Anxiety disorder, unspecified sp4 - Chest pain, unspecified sp4 - Non cardiac Chest pain sp4 Followup: ec2 - With: Private Physician - When: - Reason: Re-evaluation by your physician Discharge Instructions: - Discharge Summary Sheet ec2 - Panic Attack ec2 Forms: - Patient Portal Instructions sp4 Prescriptions: - mirtazapine 30 mg Oral tablet - take 1 tablet ORAL route every evening PRN insomnia; 30 tablet; Refills: 0, sp4 Product Selection Permitted - Valium 5 mg Oral tablet - take 1 tablet ORAL route once daily As needed PRN anxiety; 20 tablet; Refills: sp4 0, Product Selection Permitted Signatures: Dispatcher [employer] Dionne Farmer RN RN iw Potepalov, Sergey, MD MD sp4 Jayce Ugarte MD MD ec2 Karie Oscar cp4 Corrections: (The following items were deleted from the chart) 21:11 21:11 Troponin High Sensitivity+C.LAB.BRZ ordered. EDMS EDMS
[2024-09-26 22:57] VITALS: BP 146/67; O2SAT 98
--- NOTE | 2024-10-05 11:16 | EKG ---
Test Date: 2024-09-26 Test Time: 18:49:46 Accounting Administrative Assistant: KIRILL MEASUREMENT RESULTS: Intervals: Rate: 73 FL: 166 QRSD: 80 QT: 390 QTc: 429 [place]: P: 12 FL: 166 QRS: 16 T: 29 INTERPRETIVE STATEMENTS: Normal sinus rhythm Normal ECG Compared to ECG 08/10/2024 23:59:18 No significant changes Electronically Signed On 10-05-24 11:02:43 [employer] by Marcus Malagon
== END 2024-09-26 22:46 | disposition home or self-care (01) ==
LOC: ER 18:16
DX: R07.89 Other chest pain (principal); F41.9 Anxiety disorder, unspecified; I10 Essential (primary) hypertension
CPT/HCPCS: 36415; 71045; 80048; 83880; 84484; 85025; 93005; 96374; 99284

== ENCOUNTER 2024-11-05 16:19 | Emergency (ER) | payer OTHER ==
[2024-11-05 17:49] LABS: Absolute Eosinophils 0.2 K/uL (0-0.5); Absolute Lymphocytes (CBC) 1.3 K/uL (0.7-4.9); Absolute Monocytes 0.7 K/uL (0.1-1.3); Absolute Neutrophil 7.9 K/uL (1.8-8.0); Basophils % 0.5 % (0-1.3); Eosinophils % 1.7 % (0-4.4); Hematocrit 44.6 % (36.0-45.0); Hemoglobin 15.8 g/dL (12.0-15.0); Lymphocytes % 13.3 % (15.3-44.8); MCH 35.8 pg (27.0-35.0); MCHC 35.3 g/dL (32.0-36.0); MCV 101.3 fL (80-100); MPV 7.2 fL (7.6-11.3); Monocytes % 6.5 % (3.3-12.3); Nucleated Red Blood Cells % 0.1 % (0-0); Platelets 296 thou/uL (152-406); Red Cell Distribution Width 12.5 % (12.1-15.2)
[2024-11-05 18:05] LABS: Albumin 4.2 g/dL (3.4-5.0); Albumin/Globulin Ratio 0.9 (1.1-1.8); Anion Gap 11.7 mEq/L (5.0-15.0); Bilirubin Direct 0.2 mg/dL (0-0.2); Bilirubin Indirect, Calculated 0.4 mg/dL (0.2-0.8); Bilirubin Total 0.6 mg/dL (0.2-1.0); Globulin 4.7 g/dL (2.3-3.5); Protein, Total 8.9 g/dL (6.4-8.2); Troponin High Sensitivity 6.7 pg/mL (<58.9)
[2024-11-05 18:06] LABS: Potassium 3.7 mEq/L (3.5-5.1)
--- NOTE | 2024-11-05 18:23 | RAD REPORT ---
EXAMINATION: ONE VIEW CHEST XR CLINICAL INDICATION: Female, 64 years old.,COUGH TECHNIQUE: Frontal chest projection is submitted. Examination is limited by patient positioning and t echnique. COMPARISON: 09/26/2024 FINDINGS: The lungs are well inflated and clear. No pneumothorax or sizable effusion. The heart is normal in s ize. Mediastinal contours are unremarkable. IMPRESSION: No acute intrathoracic abnormalities.
--- NOTE | 2024-11-05 18:50 | ER ---
Nurse's Notes [facility] Name: Carmel Rodriguez Age: 64 yrs Sex: Female : 1960 Arrival Date: 11/05/2024 Time: 16:19 Bed 4 Private MD: Diagnosis: Dyspnea;Peripheral edema Presentation: 11/05 16:21 Chief complaint: EMS states: Went to police station c/o difficulty/painful breathing, ph also reports leg swelling, VSS. Coronavirus screen: Vaccine status: Patient reports receiving the 2nd dose of the covid vaccine. Ebola Screen: No symptoms or risks identified at this time. Initial Sepsis Screen: Does the patient meet any 2 criteria? No. Patient's initial sepsis screen is negative. Does the patient have a suspected source of infection? No. Patient's initial sepsis screen is negative. Risk Assessment: Do you want to hurt yourself or someone else? Patient reports no desire to harm self or others. Onset of symptoms was November 05, 2024. 16:21 Method Of Arrival: EMS: [facility] ph 16:21 Acuity: CHRISTINE 3 ph Historical: - Allergies: 16:22 ACETAMINOPHEN; ph 16:22 Aspirin; ph 16:22 CALCIUM CARBONATE; ph 16:22 EXCEDRIN; ph 16:22 Excedrin PM; ph 16:22 Ibuprofen; ph 16:22 NKA; ph 16:22 NSAIDS; ph 16:22 Toradol; ph - PMHx: 16:22 Anxiety; Depression; Hypertension; ph - PSHx: 16:22 section; ph - Immunization history:: Adult Immunizations unknown. - Infectious Disease History:: Denies. - Social history:: Smoking status: unknown. Screenin:39 [facility] ED Fall Risk Assessment (Adult) History of falling in the last 3 months, kc6 including since admission No falls in past 3 months (0 pts) Confusion or Disorientation No (0 pts) Intoxicated or Sedated No (0 pts) Impaired Gait No (0 pts) Mobility Assist Device Used No (0 pt) Altered Elimination No (0 pt) Score/Fall Risk Level 0 - 2 = Low Risk Oriented to surroundings, Maintained a safe environment, Educated pt \T\ family on fall prevention, incl call for assistance when getting out of bed. Abuse screen: Denies threats or abuse. Denies injuries from another. Nutritional screening: No deficits noted. Tuberculosis screening: No symptoms or risk factors identified. Assessment: 17:43 General: Appears in no apparent distress. comfortable, well groomed, well developed, kc6 Behavior is calm, cooperative, appropriate for age. Neuro: Level of Consciousness is awake, alert, obeys commands, Oriented to person, place, time, situation, Appropriate for age. Cardiovascular: Denies chest pain, Heart tones S1 S2 present Clubbing of nail beds is absent Rhythm is regular. Respiratory: Reports shortness of breath on exertion pain with respiration Airway is patent Trachea midline Respiratory effort is even, unlabored, Respiratory pattern is regular, symmetrical, Breath sounds are clear bilaterally. GI: No signs and/or symptoms were reported involving the gastrointestinal system. : No signs and/or symptoms were reported regarding the genitourinary system. EENT: No signs and/or symptoms were reported regarding the EENT system. Derm: No signs and/or symptoms reported regarding the dermatologic system. Skin is intact, is healthy with good turgor, Skin is pink, warm \T\ dry. Musculoskeletal: No signs and/or symptoms reported regarding the musculoskeletal system. Circulation, motion, and sensation intact. Range of motion: intact in all extremities, Swelling present in right leg and left leg. 18:43 Reassessment: Patient appears in no apparent distress at this time. No changes from kc6 previously documented assessment. Patient and/or family updated on plan of care and expected duration. Pain level reassessed. Patient is alert, oriented x 3, equal unlabored respirations, skin warm/dry/pink. 19:23 Reassessment: Patient appears in no apparent distress at this time. Patient and/or bm8 family updated on plan of care and expected duration. Pain level reassessed. Patient is alert, oriented x 3, equal unlabored respirations, skin warm/dry/pink. Patient denies pain at this time. Patient states feeling better. Patient states symptoms have improved. Vital Signs: 16:21 BP 141 / 79; Pulse 83; Resp 18; Temp 97.6(O); Pulse Ox 99% on R/A; ph 17:39 BP 155 / 67; Pulse 81; Resp 17 S; Pulse Ox 100% on R/A; kc6 19:23 BP 157 / 88; Pulse 80; Resp 17; Temp 97.6; Pulse Ox 100% ; Pain 0/10; bm8 19:23 Pain Scale: Adult bm8 [place] Coma Score: 19:23 Eye Response: spontaneous(4). Motor Response: obeys commands(6). Verbal Response: bm8 oriented(5). Total: 15. ED Course: 16:21 Patient arrived in ED. ph 16:21 Vlad Peña MD is Attending Physician. rt 16:22 Triage completed. ph 16:23 Arm band placed on Patient placed in an exam room, on a stretcher, on pulse oximetry. ph 16:45 XRAY Chest (1 view) In Process Unspecified. EDMS 17:28 Skylar Levine, RN is Primary Nurse. kc6 17:38 Inserted saline lock: 22 gauge in right antecubital area, using aseptic technique. kc6 Blood collected. Flushed with 10 mL NS. Patient maintains SpO2 saturation greater than 95% on room air. 17:39 Patient has correct armband on for positive identification. Bed in low position. Call kc6 light in reach. Side rails up X2. Adult w/ patient. laboratory monitor on. Pulse ox on. NIBP on. Door closed. Noise minimized. Lights dimmed. Warm blanket given. Pillow given. 19:23 Provided Education on: post er care. bm8 19:23 No provider procedures requiring assistance completed. IV discontinued, intact, bm8 bleeding controlled, No redness/swelling at site. Pressure dressing applied. Administered Medications: No medications were administered Medication: 19:23 VIS not applicable for this client. bm8 Outcome: 18:50 Discharge ordered by MD. rt 19:23 Discharged to home ambulatory, bm8 19:23 Condition: stable 19:23 Discharge instructions given to patient, Instructed on discharge instructions, follow up and referral plans. no drinking with medication, no driving heavy equipment, medication usage, safety practices, Demonstrated understanding of instructions, follow-up care, medications, Prescriptions given X 1, 19:24 Patient left the ED. bm8 Signatures: Dispatcher [employer] EDMN Arianne Mercedes RN RN ph Skylar Levine, RN RN kc6 Vlad Peña MD MD rt Naeem Menjivar RN RN bm8
--- NOTE | 2024-11-05 18:50 | EDPHYS ---
Physician Documentation [facility] Name: Carmel Rodriguez Age: 64 yrs Sex: Female : 1960 Arrival Date: 11/05/2024 Time: 16:19 Bed 4 Private MD: ED Physician Vlad Peña HPI: 11/05 16:43 This 64 yrs old Female presents to ER via EMS with complaints of Breathing rt Difficulty. 16:43 Patient presents to the ED with chest discomfort, dyspnea has been present for several rt days. States that the symptoms have resolved on arrival to the emergency department, no longer describes any chest discomfort, shortness of breath. Does report of bilateral lower extremity swelling. Denies other acute complaints at this time, symptoms are moderate in severity, no aggravating or alleviating factors.. Historical: - Allergies: 16:22 ACETAMINOPHEN; ph 16:22 Aspirin; ph 16:22 CALCIUM CARBONATE; ph 16:22 EXCEDRIN; ph 16:22 Excedrin PM; ph 16:22 Ibuprofen; ph 16:22 NKA; ph 16:22 NSAIDS; ph 16:22 Toradol; ph - PMHx: 16:22 Anxiety; Depression; Hypertension; ph - PSHx: 16:22 section; ph - Immunization history:: Adult Immunizations unknown. - Infectious Disease History:: Denies. - Social history:: Smoking status: unknown. ROS: 17:07 Constitutional: Negative for fever, chills, and weight loss, Abdomen/GI: Negative for rt abdominal pain, nausea, vomiting, diarrhea, and constipation, Skin: Negative for injury, rash, and discoloration, Neuro: Negative for headache, weakness, numbness, tingling, and seizure, 17:07 Cardiovascular: Positive for edema, 17:07 Respiratory: Positive for shortness of breath, Negative for cough, Exam: 17:07 Constitutional: This is a well developed, well nourished patient who is awake, alert, rt and in no acute distress. Head/Face: Normocephalic, atraumatic. Chest/axilla: Normal chest wall appearance and motion. Nontender with no deformity. No lesions are appreciated. Cardiovascular: Regular rate and rhythm with a normal S1 and S2. No gallops, murmurs, or rubs. Normal PMI, no JVD. No pulse deficits. Respiratory: Lungs have equal breath sounds bilaterally, clear to auscultation and percussion. No rales, rhonchi or wheezes noted. No increased work of breathing, no retractions or nasal flaring. Abdomen/GI: Soft, non-tender, with normal bowel sounds. No distension or tympany. No guarding or rebound. No evidence of tenderness throughout. Skin: Warm, dry with normal turgor. Normal color with no rashes, no lesions, and no evidence of cellulitis. Neuro: Awake and alert, GCS 15, oriented to person, place, time, and situation. Cranial nerves II-XII grossly intact. Motor strength 5/5 in all extremities. Sensory grossly intact. Cerebellar exam normal. Normal gait. 17:07 Musculoskeletal/extremity: 4+ pitting bilateral lower extremity edema. 17:34 ECG was reviewed by the Attending Physician. rt Vital Signs: 16:21 BP 141 / 79; Pulse 83; Resp 18; Temp 97.6(O); Pulse Ox 99% on R/A; ph 17:39 BP 155 / 67; Pulse 81; Resp 17 S; Pulse Ox 100% on R/A; kc6 19:23 BP 157 / 88; Pulse 80; Resp 17; Temp 97.6; Pulse Ox 100% ; Pain 0/10; bm8 19:23 Pain Scale: Adult bm8 [place] Coma Score: 19:23 Eye Response: spontaneous(4). Motor Response: obeys commands(6). Verbal Response: bm8 oriented(5). Total: 15. MDM: 16:22 Medical Screening Exam initiated rt 21:32 Differential diagnosis: CHF, dyspnea, peripheral edema. Data reviewed: vital signs, rt nurses notes, lab test result(s), EKG, radiologic studies. Consideration of Admission/Observation Escalation of care including admission/observation considered. No hypoxia, negative troponin, chest x-ray is clear, patient is appropriate for outpatient management, does not require admission for ACS rule out.. Independent interpretation of the following test(s) in the Emergency Department X-Ray: My interpretation is No pulmonary edema syndrome interpretation of x-ray images. Care significantly affected by the following chronic conditions: Hypertension. Counseling: I had a detailed discussion with the patient and/or guardian regarding the historical points, exam findings, and any diagnostic results supporting the discharge/admit diagnosis, lab results, radiology results, the need for outpatient follow up, to return to the emergency department if symptoms worsen or persist or if there are any questions or concerns that arise at home. Response to treatment: the patient's symptoms have markedly improved after treatment. 11/05 16:27 Order name: Basic Metabolic Panel; Complete Time: 18: rt 11/05 16:27 Order name: CBC with Diff rt 11/05 16:27 Order name: LFT's; Complete Time: 18: rt 11/05 16:27 Order name: NT PRO-BNP; Complete Time: 18: rt 11/05 16:27 Order name: Troponin HS; Complete Time: 18: rt 11/05 16:27 Order name: XRAY Chest (1 view); Complete Time: 18: rt 11/05 16:27 Order name: EKG; Complete Time: 16: rt 11/05 16:27 Order name: Cardiac monitoring; Complete Time: 17: rt 11/05 16:27 Order name: EKG - Nurse/Tech; Complete Time: : rt 11/05 16:27 Order name: IV Saline Lock; Complete Time: : rt 11/05 16:27 Order name: Labs collected and sent; Complete Time: : rt 11/05 16:27 Order name: O2 Per Protocol; Complete Time: : rt 11/05 16:27 Order name: O2 Sat Monitoring; Complete Time: 17: rt EC:34 Rate is 81 beats/min. Rhythm is regular, Normal Sinus Rhythm with No ectopy. QRS [place] rt is Normal. CT interval is normal. QRS interval is normal. QT interval is normal. No Q waves. T waves are Normal. No ST changes noted. Interpreted by me. Administered Medications: No medications were administered Disposition Summary: 11/05/24 18:50 Discharge Ordered Notes: Location: Home rt Problem: new rt Symptoms: have improved rt Condition: Stable rt Diagnosis - Dyspnea rt - Peripheral edema rt Followup: rt - With: Private Physician - When: 2 - 3 days - Reason: Discharge Instructions: - Discharge Summary Sheet rt - Edema rt - Shortness of Breath, Adult rt Forms: - Medication Reconciliation Form rt - Antibiotic Education rt - Prescription Opioid Use rt - Patient Portal Instructions rt - Leadership Thank You Letter rt Prescriptions: - Lasix 40 mg Oral tablet - take 1 tablet ORAL route once daily; 7 tablet; Refills: 0, Product Selection rt Permitted Signatures: Dispatcher [employer] Arianne Chacon RN RN Vlad Pierre MD MD rt
[2024-11-05 19:32] VITALS: TEMP 97.6
[2024-11-05 19:33] VITALS: O2SAT 100
[2024-11-05 19:35] VITALS: BP 157/88
[2024-11-05 19:51] LABS: Blood Morphology Comment NOT SEEN (NOT SEEN); Platelet Estimate ADEQ; White Blood Cell Scan OK (OK)
== END 2024-11-05 19:24 | disposition home or self-care (01) ==
LOC: ER 16:19
DX: R06.00 Dyspnea, unspecified (principal); R60.9 Edema, unspecified; I10 Essential (primary) hypertension
CPT/HCPCS: 36415; 71045; 80048; 80076; 83880; 84484; 85025; 93005; 99284